=== PATIENT | female | born 1950 ===

== ENCOUNTER → 2022-12-04 09:59 | Outpatient (BNVA) | payer MEDICARE, MEDICAID, SELFPAY | PROVIDERS: PCP Podiatrist Foot & Ankle Surgery; Visit Provider Nurse Practitioner Family | DX: E11.40 Type 2 diabetes mellitus with diabetic neuropathy, unspecified (principal); M25.50 Pain in unspecified joint; M47.812 Spondylosis without myelopathy or radiculopathy, cervical region; M47.816 Spondylosis without myelopathy or radiculopathy, lumbar region; M16.9 Osteoarthritis of hip, unspecified | CPT/HCPCS: 99202 ==

== ENCOUNTER 2024-02-27 09:36 | Outpatient (AMB) | payer OTHER, SELFPAY ==
--- NOTE | 2024-02-27 09:44 | HO.NEPHOV ---
HPI HPI Comments History of Present Illness Details 73-year-old woman with a history of diabetes mellitus for more than 35 years who was at chronic kidney disease. She was previously seen by a different poison information specialist and was not happy with the care and therefore his desire to switch. She is history of congestive heart failure and currently on Entresto Lasix and furosemide. Back in November of 2023 creatinine was 2.6 with EGFR of 19 mL/minute. In February EGFR remains unchanged. She is here for further evaluation. She continues to have back pain. She has no shortness of breath. No nausea vomiting. She has leg edema. No weight loss. All other systems were reviewed [facility] Medical History (Updated 02/27/24 @ 10:16 by Martín De Luna MD) Chronic kidney disease Degenerative joint disease (DJD) of hip Cataract Bunion Fatty liver DJD (degenerative joint disease), lumbar DJD (degenerative joint disease), cervical Diabetes mellitus type 2 with neurological manifestations Vitamin D deficiency Urinary incontinence Allergic rhinitis GERD (gastroesophageal reflux disease) Depression Diabetic retinopathy Hypertension Hyperlipidemia Diabetic nephropathy Surgical History (Updated 02/27/24 @ 09:48 by Rosie Vasquez) History of open heart surgery (~02/2023) History of adjustable gastric banding Social History Patient Tobacco Use Status: Never used Tobacco Vital Signs 02/27/24 09:45 Height 5 ft 6 in Weight 221 lb BMI 35.7 BP 144/66 H Blood Pressure Location Lt brachial Position Sitting Pulse 72 Pulse Source Pulse Oximeter Pulse Oximetry (%) 99 Oxygen Delivery Method Room Air Physical Exam Vital Signs: Last Vital Signs Pulse 72 02/27/24 09:45 BP 144/66 H 02/27/24 09:45 Pulse Ox 99 02/27/24 09:45 Oxygen Delivery Method Room Air 02/27/24 09:45 BMI result Body Mass Index 35.7 Const General: comfortable Nutritional Appearance: well nourished Orientation/consciousness: patient oriented x3 HEENT Head: No normal to inspection Mouth: moist mucous membranes Neck Neck: Yes supple and Yes no JVD Resp Auscultation: clear to auscultation bilaterally, no rales and rub present Cardio Jugular venous distension: no JVD Palpation: no palpable S3 and no palpable S4 Heart sounds: no rubs GI Palpation (GI): Soft to palpation and nontender Percussion: No Fluid wave present General: Yes no CVA tenderness Back/Spine/Pelvis Back: no CVA tenderness Skin General skin exam: no rashes or lesions noted Neuro General: patient oriented x3 Extrem General: No clubbing and Yes edema Assessment & Plan Assessment & Plan (1) Chronic kidney disease: Code(s): N18.9 - Chronic kidney disease, unspecified (2) Diabetes mellitus with chronic kidney disease: Code(s): E11.22 - Type 2 diabetes mellitus with diabetic chronic kidney disease Plan 73-year-old woman with a history of longstanding diabetes mellitus and coronary disease with stage IV CKD. CKD is most likely due to underlying diabetic kidney disease. Nondiabetic causes him unlikely based on the clinical picture. Goal at this point is to slow the progression of renal disease. Maintain blood pressure less than 130/80 Maintain A1c less than 7%. Continue with ARB for renal protection. She is on adequate dose of diuretics at this time. She should stay on low-sodium diet which I have discussed with her. She has mild anemia this may be due to underlying erythropoietin deficiency. I will check iron stores and reassess her for possible erythropoietin replacement therapy. We will screen for secondary hyperparathyroidism prior to next visit. All questions were answered she will return to office in next few weeks I will keep you updated. Orders: Orders Basic Metabolic Panel 4 Weeks N18.9 - Chronic kidney disease, unspecified IRON PROFILE 4 Weeks N18.5 - Chronic kidney disease, stage 5, N18.9 - Chronic kidney disease, unspecified Creatinine Urine 4 Weeks N05.9 - Unspecified nephritic syndrome with unspecified morphologic changes, N18.9 - Chronic kidney disease, unspecified Parathyroid Hormone Intact 4 Weeks N18.9 - Chronic kidney disease, unspecified Phosphorus 4 Weeks N18.9 - Chronic kidney disease, unspecified Total Protein Urine Random 4 Weeks N18.9 - Chronic kidney disease, unspecified Complete Blood Count Auto Diff 4 Weeks N18.30 - Chronic kidney disease, stage 3 unspecified, N18.9 - Chronic kidney disease, unspecified Coding Level of Care Code New Pt Level 5 (02903) Diagnoses Chronic kidney disease N18.9 Diabetes mellitus with chronic kidney disease E11.22 Results Reviewed Results Reviewed: eGFR 19 ml/mt K normal Nephrology Results: No Data to Display
[2024-02-27 09:45] VITALS: BP 144/66; PULSE 72; O2SAT 99; BMI 35.7
== END 2024-02-27 10:24 | disposition home or self-care (01) ==
PROVIDERS: PCP Internal Medicine; Visit Provider Internal Medicine Hypertension Specialist
DX: E11.22 Type 2 diabetes mellitus with diabetic chronic kidney disease (principal); N18.4 Chronic kidney disease, stage 4 (severe)
CPT/HCPCS: 99204

== ENCOUNTER → 2024-02-27 09:36 | Outpatient (BNVA) | payer OTHER, SELFPAY | PROVIDERS: PCP Internal Medicine; Visit Provider Internal Medicine Hypertension Specialist | DX: E11.22 Type 2 diabetes mellitus with diabetic chronic kidney disease (principal); N18.9 Chronic kidney disease, unspecified | CPT/HCPCS: 99202 ==

== ENCOUNTER 2024-04-08 12:58 | Outpatient (REF) | payer OTHER, SELFPAY ==
[2024-04-08 18:54] LABS: MANUAL DIFF FLAG NO
[2024-04-08 19:10] LABS: Basophils Absolute Auto 0.1 X10*3/uL (0.0-0.2); Basophils Percent Auto 0.8 % (0-2); Eosinophils Absolute Auto 0.2 X10*3/uL (0.0-0.4); Eosinophils Percent Auto 2.7 % (0-4); Hemoglobin 8.8 g/dl (12.0-16.0); Imm Gran Abs Auto 0.02 X10*3/uL (0.00-0.03); Imm Gran Pct Auto 0.3 % (0.0-0.4); Lymphocytes Absolute Auto 1.9 X10*3/uL (1.2-4.9); Lymphocytes Percent Auto 28.9 % (20-40); Mean Corpuscular HGB Conc 32.6 g/dl (31.0-35.0); Mean Corpuscular Hemoglobin 28.9 pg (27.0-33.0); Mean Corpuscular Volume 88.8 fL (80.0-98.0); Mean Platelet Volume 11.5 fL (9.4-12.3); Monocytes Absolute Auto 0.5 X10*3/uL (0.1-1.2); Monocytes Percent Auto 7.2 % (2-11); Neutrophils Absolute Auto 3.9 x10*3/uL (2.0-8.3); Neutrophils Percent Auto 60.1 % (45-73); Platelet Count 301 X10*3/uL (160-400); Red Blood Count 3.04 X10*6/uL (4.20-5.50); Red Cell Distribution Width 16.5 % (11.0-16.0); White Blood Count 6.6 X10*3/uL (4.8-10.8)
[2024-04-08 19:29] LABS: Anion Gap 16 (12-20); Blood Urea Nitrogen 35 mg/dL (9-16); Calcium 9.6 mg/dL (8.4-10.2); Carbon Dioxide 25 mmol/L (22-29); Chloride 105 mmol/L (96-108); Estimated Glomerular Filt Rate 23; Glucose Random 157 mg/dL (60-115); Iron 56 mcg/dL (30-160); Percent Iron Saturation 20 % (15-50); Phosphorus 3.5 mg/dL (2.7-4.5); Potassium 3.8 mmol/L (3.3-5.1); Sodium 142 mmol/L (135-145); Total Iron Binding Capacity 275 mcg/dL (228-428); Unsaturated Iron Binding 219 ug/dL
[2024-04-08 19:53] LABS: Creatinine Urine 58.91 mg/dL; Total Protein Urine Random 166 mg/dL (<12)
[2024-04-09 07:26] LABS: Parathyroid Hormone Intact 155.1 pg/mL (8.7-77.1)
== END 2024-04-08 12:59 | disposition home or self-care (01) ==
LOC: HO.HKASLDS 12:58
PROVIDERS: Visit Provider Internal Medicine Hypertension Specialist
DX: N18.5 Chronic kidney disease, stage 5 (principal); N05.9 Unspecified nephritic syndrome with unspecified morphologic changes
CPT/HCPCS: 36415; 80048; 82570; 83540; 83970; 84100; 84156; 85025

== ENCOUNTER 2024-04-23 08:41 | Outpatient (AMB) | payer OTHER, SELFPAY ==
--- NOTE | 2024-04-23 08:50 | HO.NEPHOV ---
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 Electric Service Required: No Accompanied by: Spouse Allergies No Known Allergies Allergy (Verified 04/23/24 08:54) Medication List - Last Reconciled 04/23/24 by Martín De Luna MD albuterol sulfate 90 mcg/actuation (ProAir HFA) 2 puffs inhalation Q6H PRN albuterol sulfate 90 mcg/actuation (ProAir RespiClick) 1 inh inhalation Q4-6H PRN aspirin 81 mg PO DAILY atorvastatin 80 mg PO DAILY carvedilol 12.5 mg PO BID cholecalciferol (vitamin D3) 50 mcg PO DAILY ferrous sulfate (FeroSul) 325 mg PO DAILY furosemide 40 mg PO BID hydralazine 75 mg (1.5 x 50 mg) PO TID insulin glargine (Lantus Solostar U-100 Insulin) 62 units subcut DAILY insulin lispro (Humalog KwikPen (U-100) Insulin) subcut metolazone 2.5 mg PO DAILY PRN nifedipine ER 60 mg PO DAILY pantoprazole 40 mg PO DAILY potassium chloride ER 10 mEq PO DAILY HPI Comments Details: . 73-year-old pleasant woman with a history of diabetes mellitus for more than 35 years who was at chronic kidney disease. She was previously seen by a different supervisory examiner and was not happy with the care and therefore his desire to switch. She is history of congestive heart failure and was on Entresto Lasix and furosemide. Back in November of 2023 creatinine was 2.6 with EGFR of 19 mL/minute. During recent hospitalization medications were changed. Amlodipine and losartan discontinued. She is currently in nifedipine and hydralazine and carvedilol She continues to have back pain. She has no shortness of breath. No nausea vomiting. She has leg edema. No weight loss. All other systems were reviewed History of congestive heart failure with preserved ejection fraction. [facility] Medical History (Updated 02/27/24 @ 10:16 by Martín De Luna MD) Chronic kidney disease Degenerative joint disease (DJD) of hip Cataract Bunion Fatty liver DJD (degenerative joint disease), lumbar DJD (degenerative joint disease), cervical Diabetes mellitus type 2 with neurological manifestations Vitamin D deficiency Urinary incontinence Allergic rhinitis GERD (gastroesophageal reflux disease) Depression Diabetic retinopathy Hypertension Hyperlipidemia Diabetic nephropathy Surgical History History of open heart surgery (~02/2023) History of adjustable gastric banding Social History Patient Tobacco Use Status: Never used Tobacco Physical Exam Vital Signs: Last Vital Signs Pulse 70 04/23/24 08:51 BP 144/62 H 04/23/24 08:51 Pulse Ox 98 04/23/24 08:51 Oxygen Delivery Method Room Air 04/23/24 08:51 BMI result Body Mass Index 34.7 Const General: comfortable Nutritional Appearance: well nourished Orientation/consciousness: patient oriented x3 HEENT Head: No normal to inspection Mouth: moist mucous membranes Neck Neck: Yes supple and Yes no JVD Resp Auscultation: clear to auscultation bilaterally, no rales and rub present Cardio Jugular venous distension: no JVD Palpation: no palpable S3 and no palpable S4 Heart sounds: no rubs GI Palpation (GI): Soft to palpation and nontender Percussion: No Fluid wave present General: Yes no CVA tenderness Back/Spine/Pelvis Back: no CVA tenderness Skin General skin exam: no rashes or lesions noted Neuro General: patient oriented x3 Extrem General: No clubbing and Yes edema Results Reviewed Nephrology Results: Hgb 8.8 g/dl (12.0-16.0) L 04/08/24 WBC 6.6 X10*3/uL (4.8-10.8) 04/08/24 Plt Count 301 X10*3/uL (160-400) 04/08/24 Sodium 142 mmol/L (135-145) 04/08/24 Potassium 3.8 mmol/L (3.3-5.1) 04/08/24 Chloride 105 mmol/L (96-108) 04/08/24 Carbon Dioxide 25 mmol/L (22-29) 04/08/24 BUN 35 mg/dL (9-16) H 04/08/24 Creatinine 2.13 mg/dL (0.5-1.4) H 04/08/24 Calcium 9.6 mg/dL (8.4-10.2) 04/08/24 Phosphorus 3.5 mg/dL (2.7-4.5) 04/08/24 PTH Intact 155.1 pg/mL (8.7-77.1) H 04/08/24 Urine Creatinine 58.91 mg/dL 04/08/24 Assessment & Plan Assessment & Plan (1) Chronic kidney disease: Code(s): N18.9 - Chronic kidney disease, unspecified Category: Medical (2) Diabetes mellitus with chronic kidney disease: Code(s): E11.22 - Type 2 diabetes mellitus with diabetic chronic kidney disease Category: Medical Plan . 73-year-old woman with a history of longstanding diabetes mellitus and coronary disease with stage IV CKD. CKD is most likely due to underlying diabetic kidney disease. Nondiabetic causes him unlikely based on the clinical picture. Creatinine is marginally better at 2.11. Goal at this point is to slow the progression of renal disease. Maintain blood pressure less than 130/80 Maintain A1c less than 7%. Continue with ARB for renal protection. She is on adequate dose of diuretics at this time. She should stay on low-sodium diet which I have discussed with her. She will benefit from SGLT2 inhibitors. Hypertension. Blood pressure is suboptimal. I have increased hydralazine up to 75 mg 3 times a day. 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 Iron stores are adequate. I will arrange for erythropoietin replacement therapy. secondary hyperparathyroidism Mild elevation PTH. She will follow this and start her on vitamin D3 analog as needed. All questions were answered she will return to office in next 3-4 weeks Orders: Orders Complete Blood Count Auto Diff 3 Weeks N18.30 - Chronic kidney disease, stage 3 unspecified, N18.9 - Chronic kidney disease, unspecified Basic Metabolic Panel 3 Weeks N18.9 - Chronic kidney disease, unspecified Medications: New hydralazine 75 mg (1.5 x 50 mg) PO TID 140 tabs 2RF Coding Level of Care Code Est Pt Level 4 (60343) Diagnoses Chronic kidney disease N18.9 Diabetes mellitus with chronic kidney disease E11.22
[2024-04-23 08:51] VITALS: BP 144/62; PULSE 70; O2SAT 98; BMI 34.7
--- OUTSIDE RECORDS SUMMARY | 2024-04-25 10:15 | XMS_ITS | Continuity of Care Document ---
Author Organization [facility] ter Address [address] [place] [id number]- Care Team Providers Care Hand Riveter Name Role Phone Rosalina AVILES, Diana Brunilda Primary Care Physician Encounter [facility] Date(s): 04/12/23 - 07/27/[address] [address]- Encounter Diagnosis Atherosclerotic heart disease of tangirnaq coronary artery without angina pectoris (Final) - Discharge Disposition: A-D/C Home Attending Physician: Lm Ayon MD Admitting Physician: Lm Ayon MD Referring Physician: Lm Ayon MD Allergies, Adverse Reactions, Alerts No Known Allergies Immunizations Given and Recorded Vaccine Date Status Refusal Reason influenza virus vaccine, inactivated 06/23/22 Anthony rded influenza virus vaccine, inactivated 07/15/21 Anthony rded influenza virus vaccine, inactivated 08/18/20 Anthony rded influenza virus vaccine, inactivated 08/05/20 Anthony rded influenza virus vaccine, inactivated 09/28/18 Give n influenza virus vaccine, inactivated 09/24/15 Anthony rded SARS-CoV-2 mRNA ([id number]) vax 06/23/22 Recorded SARS-CoV-2 (COVID-19) mRNA BNT-162b2 vac 09/06/21 Recorded SARS-CoV-2 (COVID-19) mRNA BNT-162b2 vac 02/18/21 Recorded SARS-CoV-2 (COVID-19) mRNA BNT-162b2 vac 01/28/21 Recorded zoster vaccine, inactivated 11/28/19 Recorded Zoster Vaccine Live 11/05/12 Recorded Medications acetaminophen 325 mg oral tablet 975 mg, By Mouth, Every 6 hours, Refills 0, Maintenance, 03/08/23 15:15:00 EDT, Partial fill upon patient request if the prescription is for a schedule II opioid drug. Start Date: 03/08/23 Status: Ordered Albuterol (Eqv-ProAir HFA) 90 mcg/inh inhalation aerosol INHALE 2 PUFFS INTO THE LUNGS EVERY 6 HOURS NEEDED FOR COUGH OR WHEEZING OR SHORTNESS OF BREATH Start Date: 12/20/22 Status: Ordered amiodarone 200 mg oral tablet 200 mg, By Mouth, 2 times a day, Refills 0, Maintenance, 03/08/23 15:15:00 EDT, Partial fill upon patient request if the prescription is for a schedule II opioid drug. Start Date: 03/08/23 Status: Ordered aspirin 81 mg oral tablet 1 tablet = 81 mg, By Mouth, Daily, 0 Refills, Maintenance, 06/17/10 14:05:19 Start Date: 06/17/10 Status: Ordered atorvastatin 80 mg oral tablet 1 tablet = 80 mg, By Mouth, Daily at bedtime, 0 Refills, Maintenance, 03/08/23 15:15:00 EDT, Tablet, Partial fill upon patient request if the prescription is for a schedule II opioid drug. Start Date: 03/08/23 Status: Ordered bisacodyl 10 mg rectal suppository 1 supp = 10 mg, Rectally, Daily, PRN Constipation, 0 Refills, Maintenance, 03/08/23 15:15:00 EDT, Suppository, Partial fill upon patient request if the prescription is for a schedule II opioid drug. Start Date: 03/08/23 Status: Ordered bisacodyl 5 mg oral delayed release tablet = 10 mg, By Mouth, Daily, PRN Constipation, 0 Refills, Maintenance, 03/08/23 15:15:00 EDT, EC Tablet, Partial fill upon patient request if the prescription is for a schedule II opioid drug. Start Date: 03/08/23 Status: Ordered clopidogrel 75 mg oral tablet 75 mg, 1, tablet, By Mouth, Daily, Refills 0, Maintenance, 03/08/23 15:15:00 EDT, Partial fill uponpatient request if the prescription is for a schedule II opioid drug. Start Date: 03/08/23 Status: Ordered Coreg 3.125 mg oral tablet 3.125 mg, 1, tablet, By Mouth, 2 times a day, Refills 0, Maintenance, 03/08/23 15:14:00 EDT, Partial fill upon patient request if the prescription is for a schedule II opioid drug. Start Date: 03/08/23 Status: Ordered Docusate/Senna Tablet 2 tablet, By Mouth, Daily, 0 Refills, Maintenance, 03/08/23 15:15:00 EDT, Tablet, Partial fill uponpatient request if the prescription is for a schedule II opioid drug. Start Date: 03/08/23 Status: Ordered Heparin Inj 1 mL = 5,000 units, Subcutaneous Injection, 3 times a day, 0 Refills, Maintenance, 03/08/23 15:15:00 EDT, Injection, Partial fill upon patient request if the prescription is for a schedule II opioid drug. Start Date: 03/08/23 Status: Ordered insulin lispro 100 u/ml subcutaneous injection 2-10 units, Subcutaneous Injection, 3 times a day before meals, << Sliding Scale Comments >> 120 - 169 2 units Call if less than 100 170 - 219 4 units 220 - 269 6 units 270 - 319 8 units 320 - 369 10 units Call if greater than 400 <... Start Date: 03/08/23 Status: Ordered Insulin LISPRO Inj 0.06 mL = 6 units, Subcutaneous Injection, 3 times a day before meals, 0 Refills, Maintenance, 03/08/23 15:14:00 EDT, Injection, Partial fill upon patient request if the prescription is for a schedule II opioid drug. Start Date: 03/08/23 Status: Ordered lactulose 10 gm/15 ml oral syrup 30 mL = 20 Gm, By Mouth, Daily, 0 Refills, Maintenance, 03/08/23 15:16:00 EDT, Syrup, Partial fill upon patient request if the prescription is for a schedule II opioid drug. Start Date: 03/08/23 Status: Ordered Lantus Inj 0.4 mL = 40 units, Subcutaneous Injection, Every 24 hours, 0 Refills, Maintenance, 03/08/23 15:14:00 EDT, Injection, Partial fill upon patient request if the prescription is for a schedule II opioid drug. Start Date: 03/08/23 Status: Ordered lidocaine 5% topical film Topically, Daily, 0 Refills, Maintenance, 03/08/23 15:16:00 EDT, Patch, Partial fill upon patient request if the prescription is for a schedule II opioid drug. Start Date: 03/08/23 Status: Ordered methenamine hippurate 1 gm oral tablet 1 tablet = 1 Gm, By Mouth, 2 times a day, 0 Refills, Maintenance, 01/12/16 13:14:06 Start Date: 01/12/16 Status: Ordered MiraLax Powder 1 pack/packet = 17 Gm, By Mouth, Daily, 0 Refills, Maintenance, 03/08/23 15:16:00 EDT, Powder, Partial fill upon patient request if the prescription is for a schedule II opioid drug. Start Date: 03/08/23 Status: Ordered Multivitamin By Mouth, 2 times a day, 0 Refills, Maintenance, 09/15/15 9:44:56 Start Date: 09/15/15 Status: Ordered oxyCODONE 5 mg oral tablet 2.5 mg, 0.5, tablet, By Mouth, Every 4 hours, PRN, Refills 0, Tot. Refills 0, Maintenance, Pain , Moderate, 03/08/23 15:17:00 EDT, Partial fill upon patient request if the prescription is for a schedule II opioid drug. Start Date: 03/08/23 Stop Date: 03/13/23 Status: Ordered pantoprazole 40 mg oral delayed release tablet 1 tablet = 40 mg, By Mouth, Daily, # 30 tablet, 0 Refills, Maintenance, 12/20/22 2:40:00 EST, EC Tablet Start Date: 12/20/22 Status: Ordered Remove Patch Start Date: 03/08/23 Status: Ordered Vashe Topical Solution 475 mL, Topically, Every 12 hours, 0 Refills, Maintenance, Solution Start Date: 03/08/23 Status: Ordered Victoza 18 mg/3 mL subcutaneous solution = 1.8 mg, Subcutaneous Injection, Daily, # 9 mL, 0 Refills, Maintenance, 12/20/22 2:44:00 EST, Solution, Partial fill upon patient request if the prescription is for a schedule II opioid drug. Start Date: 12/20/22 Status: Ordered Vitamin D3 1000 intl units oral capsule 1 capsule = 1,000 International_Units, By Mouth, Daily, 0 Refills, Maintenance, 09/15/15 9:42:37 EDT Start Date: 09/15/15 Status: Ordered Problem List Condition Confirmation Course Effective Dates Status Health St atus Informant Atypical chest pain Confirmed Active Neuropathy Confirmed Active Retinopathy Confirmed Active Severe obesity Confirmed Active Social History Social History Type Response Smoking Status Never smoker entered on: 09/14/15 Sex Note * Event Display: Cardiac Rehab Telemetry Report Authored Date: * Event Display: Cardiac Rehab Telemetry Report Authored Date: * Event Display: Cardiac Rehab Telemetry Report Authored Date: Patient Care team information Care Team Personnel Name: Anuradha Flores RN Position: S RN Member Role: Primary Care Nurse Name: Diana Romano MD Position: [facility] Physician - Primary Care Member Role: PCP Address: Address: [address] [place] [id number]- Name: Ruben Jensen RN Position: [facility] RN Member Role: Primary Care Nurse Name: Katty Garcia RN Position: S RN Member Role: Primary Care Nurse Name: Slick Martino RN Position: [facility] ED RN W/OE and Tasks Member Role: Primary Care Nurse Name: Sudha Kee RN Position: [facility] RN Member Role: Primary Care Nurse Name: Tita Sims RN Position: [facility] RN Member Role: Primary Care Nurse Care Team Related Persons Name: NBA COCHRANJOVANJULIA Address: [place] [address] Name: AMILCAR JOHNSON Address: home [address] [address]
--- OUTSIDE RECORDS SUMMARY | 2024-04-25 10:15 | XMS_ITS | Continuity of Care Document ---
Author Organization [facility] ter Address [address] [place] [id number]- Care Team Providers Care Manager Food Name Role Phone Rosalina AVILES, Diana D Primary Care Physician Encounter [facility] Date(s): 03/02/23 - 03/08/[address] [address] Discharge Disposition: A-Transfer SNF Attending Physician: Lm Ayon MD Admitting Physician: Michael Torrez MD Referring Physician: Pancho Noland Allergies, Adverse Reactions, Alerts No Known Allergies Immunizations Given and Recorded Vaccine Date Status Refusal Reason influenza virus vaccine, inactivated 06/23/22 Anthony rded influenza virus vaccine, inactivated 07/15/21 Anthony rded influenza virus vaccine, inactivated 08/18/20 Anthony rded influenza virus vaccine, inactivated 08/05/20 Anthony rded influenza virus vaccine, inactivated 09/28/18 Give n influenza virus vaccine, inactivated 09/24/15 Anthony rded SARS-CoV-2 mRNA ([id number]) vax 06/23/22 Recorded SARS-CoV-2 (COVID-19) mRNA BNT-162b2 vac 09/06/21 Recorded SARS-CoV-2 (COVID-19) mRNA BNT-162b2 vac 02/18/21 Recorded SARS-CoV-2 (COVID-19) mRNA BNT-162b2 vac 01/28/21 Recorded zoster vaccine, inactivated 11/28/19 Recorded Zoster Vaccine Live 11/05/12 Recorded Not Given Vaccine Date Status Refusal Reason pneumococcal 13-valent vaccine 09/28/18 Not Given Patient Refuses Medications acetaminophen 325 mg oral tablet 975 [...] Coreg 3.125 mg oral tablet 3.125 mg, Tablet, By Mouth, Hold for: HR less than 60 or sbp less than 110, 03/08/23 9:00:00 EDT Start Date: 03/08/23 Stop Date: 03/08/23 Status: Completed Docusate/Senna Tablet 2 tablet, By Mouth, Daily, [...] Retinopathy Confirmed Active Severe obesity Confirmed Active Results Radiology Reports * Exam Date Time Procedure Performing Provider Status 03/04/23 7:18 AM Chest Portable Leta Ruvalcaba Keyla; Auth (Verified) Notes: (Chest Portable) Reason For Exam: S/P Cardiac Surgery RESULT: Chest Portable Chest Portable Reason: S P Cardiac Surgery; Clinical Question(s): Pleural Effusion COMPARISON: 03/03/2023 FINDINGS: LINES AND TUBES: Vascular sheath in expected position. Left base catheter not well seen. Right- sided chest tube appears similar in position. LUNGS AND PLEURA: Clear lungs. Normal pulmonary vascularity. No pleural effusion. No pneumothorax. HEART, MEDIASTINUM AND LARISSA: Heart is normal in size. Normal mediastinal and hilar contour. BONES AND SOFT TISSUES: Sternotomy sutures noted. IMPRESSION: Limited exam. No significant interval change. WSN: [id number] Ordering Physician: Dona Amor Dictated By: Richard Green MD Dictated Date/Time: 03/04/23 9:34 am Reviewed By: Richard Green MD Signed By: Richard Green MD Signed Date/Time: 03/04/23 9:34 am Transcribed By: SADIQ Transcribed Date/Time: 03/04/23 9:33 am * Exam Date Time Procedure Performing Provider Status 03/03/23 6:34 AM Chest Portable Con Patel; Auth (Verified) Notes: (Chest Portable) Reason For Exam: S/P Cardiac Surgery RESULT: Chest Portable Chest Portable Reason: S P Cardiac Surgery; Clinical Question(s): Other:; Cardiac Tamponade; Special Instructions:Post Op Day 1 COMPARISON: 03/02/2023 FINDINGS: LINES AND TUBES: The patient has been extubated. Enteric tube has been removed. Stable positioning of right internaljugular Baltimore-Jimi catheter. Bibasilar chest tubes unchanged . External lead wires overlie the chest. LUNGS AND PLEURA: Low lung volumes with mild basilar atelectasis. Lungs are otherwise clear with no consolidation. No definite pleural effsion. Small effusion may not be apparent on semiupright exam. No pneumothorax. HEART, MEDIASTINUM AND LARISSA: Status post median sternotomy and cardiac surgery. Moderate prominence of the cardiac silhouette, unchanged. Normal mediastinal and hilar contour. BONES AND SOFT TISSUES: No acute abnormality. IMPRESSION: Status post median sternotomy and cardiac surgery. Lines and tubes are adequately placed. Low lung volumes and bibasilar atelectasis. Semiupright positioning limiting evaluation for effusion. No definite effusion identified. WSN: [id number] Ordering Physician: Richard Deleon Dictated By: Micheal Santiago MD Dictated Date/Time: 03/03/23 4:34 pm Reviewed By: Micheal Santiago MD Signed By: Micheal Santiago MD Signed Date/Time: 03/03/23 4:34 pm Transcribed By: SADIQ Transcribed Date/Time: 03/03/23 4:32 pm * Exam Date Time Procedure Performing Provider Status 03/02/23 1:59 PM Chest Portable Anuradha Saxena; Auth (V erified) Notes: (Chest Portable) Reason For Exam: S/P Cardiac Surgery RESULT: Chest Portable Chest Portable Reason: S P CAGB 03/02; Clinical Question(s): Cardiac Tamponade COMPARISON: Multiple priors, most recent chest x-ray 02/28/2023, CT chest 12/21/2022 FINDINGS: LINES AND TUBES: Endotracheal tube terminates approximately 2.3 cm above the radha. Baltimore-Jimi catheter terminates in the region of the right ventricular outflow tract. Left basilar chest tube and mediastinal drain. Enteric tube courses along the esophagus with side hole terminating in the region of the gastric pouch. LUNGS AND PLEURA: Low lung volumes with mild basilar atelectasis. Lungs are otherwise clear with no consolidation. Mild blunting of the bilateral costophrenic angles, which could represent trace bilateral pleural effusions. No pneumothorax. HEART, MEDIASTINUM AND LARISSA: Heart is normal in size. Normal mediastinal and hilar contour. BONES AND SOFT TISSUES: No acute abnormality. Status post CABG. Poorly visualized gastric band. IMPRESSION: Low lung volumes. Possible trace bilateral pleural effusions. Otherwise no acute abnormality status post CABG. Lines and tubes as above. I have personally reviewed the images and I agree with this report. WSN: [id number] Ordering Physician: Richard Deleon Dictated By: Shauna Mcghee MD Dictated Date/Time: 03/02/23 2:50 pm Reviewed By: Miguel Quan MD, V Signed By: Miguel Quan MD, V Signed Date/Time: 03/02/23 2:55 pm Transcribed By: SADIQ Transcribed Date/Time: 03/02/23 2:30 pm * Exam Date Time Procedure Performing Provider Status 02/28/23 7:42 PM Chest 2 Views Frontal and Lat Charla Duron; Auth (Verified) Notes: (Chest 2 Views Frontal and Lat) Reason For Exam: Cough RESULT: Chest 2 Views Frontal and Lat Chest 2 Views Frontal and Lat Reason: Cough; Clinical Question(s): Pneumonia; Order Comment: @1435, per RN patient unavailable tocome down due to getting scans in room, then going to M6. Floor will call when patient is transferred. MM COMPARISON: 12/19/2022. FINDINGS: LINES AND TUBES: None. LUNGS AND PLEURA: Central vascularity is mildly prominent and indistinct. Trace effusions are noted. Lungs are slightly hyperinflated. No pneumothorax. HEART, MEDIASTINUM AND LARISSA: Moderate prominence of the cardiac silhouette. Normal mediastinal and hilar contour. BONES AND SOFT TISSUES: No acute abnormality. IMPRESSION: Cardiac enlargement with pulmonary edema and trace effusions consistent with CHF. Mild COPD. No pneumonia. WSN: [id number] Ordering Physician: Jae Agustin Dictated By: Micheal Santiago MD Dictated Date/Time: 02/28/23 8:46 pm Reviewed By: Micheal Santiago MD Signed By: Micheal Santiago MD Signed Date/Time: 02/28/23 8:46 pm Transcribed By: SADIQ Transcribed Date/Time: 02/28/23 8:45 pm Vital Signs Most recent to oldest [Reference Range]: 1 2 3 Height 168 cm (03/08/23 11:54 AM) 168 cm (03/08/23 7:58 AM) 168 cm (03/08/23 5:08 AM) Weight 117.2 kg (03/08/23 5:08 AM) 117.2 kg (03/08/23 5:07 AM) 117.2 kg (03/08/23 4:56 AM) Oxygen Saturation [94-100 %] 96 % (03/08/23 11:54 AM) 96 % (03/08/23 7:58 AM) 96 % (03/08/23 4:56 AM) Pulse Rate [55-90 bpm] 67 bpm (03/08/23 11:54 AM) 59 bpm (03/08/23 8:23 AM) 58 bpm (03/08/23 7:58 AM) Body Mass Index [18.5-24.99 kg/m2] 41.52 kg/m2 *>HHI* (03/08/23 4:56 AM) 42.62 kg/m2 *>HHI* (03/07/23 3:40 AM) 38.87 kg/m2 *>HHI* (03/02/23 7:21 AM) Blood Pressure [90-138/55-84 mm Hg] 146/47mm Hg *H* (03/08/23 11:54 AM) 136/47mm Hg (03/08/23 7:58 AM) 112/40mm Hg (03/08/23 4:56 AM) Respiratory Rate [16-30 br/min] 18 br/min (03/08/23 11:54 AM) 18 br/min (03/08/23 7:58 AM) 18 br/min (03/08/23 4:56 AM) Temperature [96.8-100.4 DegF] 98.4 DegF (03/08/23 11:54 AM) 98.3 DegF (03/08/23 7:58 AM) 98.2 DegF (03/08/23 4:56 AM) Liters per Minute 3 L/min (03/07/23 7:27 AM) 3 L/min (03/07/23 3:40 AM) 3 L/min (03/06/23 11:14 PM) Mode of Delivery (Oxygen) Room air (03/08/23 11:54 AM) Room air (03/08/23 7:58 AM) Room air (03/08/23 4:56 AM) Blood pressure sites Arm, left (03/08/23 11:54 AM) Arm, left (03/08/23 7:58 AM) Arm, left (03/08/23 4:56 AM) Temperature Route Oral (03/08/23 11:54 AM) Oral (03/08/23 7:58 AM) Oral (03/08/23 4:56 AM) Dry Weight 114.2 kg (02/28/23 4:23 PM) 114.2 kg (02/28/23 7:45 AM) Weight Obtained Via Bed scale (03/08/23 5:08 AM) Bed scale (03/08/23 5:07 AM) Bed scale (03/08/23 4:56 AM) Dry Weight Obtained Via Standing scale (02/28/23 7:45 AM) Social History Social History Type Response Smoking Status Never smoker entered on: 09/14/15 Sex Note * Rimma Murray RN: PERFORM Event Display: Discharge/Transfer Note Hospital Authored Date: [id number] Nursing Discharge Note Entered On: 03/08/2023 18:42 EDT Performed On: 03/08/2023 18:41 EDT by Rimma Murray RN Nursing Discharge Note 2 Discharge Time : 03/08/2023 16:30 EDT Discharge Level of Care at Discharge : [facility] facility Discharge Nursing Homes/Rehab Facilities : [facility] Patient Left Unit Via : Ambulance Patient Accompanied Off Unit with : Ambulance/Chair Van Personnel Handover Given to Transport Personnel : Yes DC Instructions Provided & Signed by Pt : Yes Patient Understands D/C Instructions : Yes Patient Instructions Discharge Signed : Yes Did Pt have Specialty Bed or Wound Vac : No Rimma Murray RN - 03/08/2023 18:41 EDT * Lm Ayon MD: SIGN Lm Ayon MD: SIGN, SIGN, VERIFY Event Display: Discharge/Transfer Note Hospital Authored Date: [id number] Patient: ALEXY WATTS Age: 72 years Sex: Female : 1950 Associated Diagnoses: None Author: Mehrdad Ivy Discharge Information Chief Complaint/Reason for Admission Angina, shortness of breath Principal Discharge Diagnosis CAD (coronary artery disease): Present on admission - yes. Secondary Discharge Diagnoses Diabetes: Present on admission - yes. Patient is aware of diagnosis Procedures 1. CABG x2, GRIMM to LAD, saphenous vein graft to RPLA. 2. Endoscopic saphenous vein harvesting. 3. Epiaortic ultrasound of ascending aorta and aortic arch.. Discharge condition: good Compared to admission: improved Functional Status: ambulatory with assistance Discharge Disposition Home: self care, family. Home care with: VNA. Discharge Summary distribution: Route to attending, referring, and primary care provider. Route to: Rosalina AVILES, Diana Cordero Discharge Date 03/08/2023 Admission Date 03/02/2023 Code Status Full Resuscitation. Draft of Summary Completed by: Tawny WESTFALL, Mehrdad Lua. Case Management Discharge Plan : Case Management Discharge Plan Data 03/08/2023 14:55 EDT Discharge Level of Care at Discharge [facility] facility Discharge Nursing Homes/Rehab Facilities [facility] Discharge Transportation Arranged [facility] [address] [facility] [id number] Discharge Arranged Transport Date/Time 03/08/2023 17:00 Mode of Transportation Arranged Chair [employer] Fourth Hand #1 intake/allscripts Service Categories #1 Occupational Therapy, Physical Therapy, [facility]ci Service Comments #1 You are being discharged to [facility] for continued skilled care and skilled rehab as discussed. Name of Person Notified of Transfer patient Hospital Course Typed narrative PMHx: This is a 72 year old female w/ a hx of HTN, cholecystitis (treated conservatively with abx),CKD, DM-retinopathy, GERD, venous insufficiency s/p RLE vein stripping, HLD, DJD, depression, Bunions s/p bunion surgery, and cataracts s/p surgery who presented originally with unstable angina and SOB. Eventually, an elective cardiac catheterization was obtained which revealed severe distal stenosis at the left main and RCA bifurcation as well as FAMILY DEVELOPMENT SPECIALIST mid-circumflex. Dr Ayon performed a CABGx2 on 03/02/23. Surgeon: Dr. Ayon Cardiolgost: Dr. Torrez POD 6 CABG x 2 (GRIMM-LAD, SVG-PVA) EF 55-65% Plan by systems: Neuro Post-operative Pain Cataracts DM-retinopathy Depression scheduled Tylenol pt is VERY sensitive to opioids PT evaluated patient, recommended rehab Cardiovascular s/p CABG x 2 (GRIMM-LAD, SVG-PVA) Hypotension secondary to vasoplegia RESOLVED HX of HTN and HLD Amlodipine 5 mg qd- stopped due to hypotension Carvedilol 12.5 mg BID- decreased to 3.125 mg po bid due to hypotension Asa 81 mg qd Plavix 75 mg qd x 12 months Echo 03/05 with poor views, LV function grossly preserved Pulmonary Acute respiratory insufficiency, postoperative OOB to chair Aggressive pulm toileting 2LNC Keep spo2 > 92% GI Cholecystitis (resolved) Diet: Cardiac ppi resumed home dose Renal CKD Hyponatremia Hyperkalemia Baseline Creatinine: 1.5-1.7 Creatinine peak at 2, downtrended to baseline range Lasix increased to 60mg PO BID, discontinue on discharge, nearing euvolemia Strict i&o Replete lytes per protocol Home HCTZ and Spironolactone held Hyponatremia and hyperkalemia likely secondary to hypervolemia, monitor Heme Acute Blood loss anemia Watch for bleeding No blood products required intraoperatively ID keanu-operative antibiotics completed trend wbc, fever curve Endo stress induced hyperglycemia DMII A1C 7.5 Post op Cardiac Surgery Protocol BIDS recommended discharge on final inpatient dosing of insulin Dispo:??Discharge to fdc facility for continued rehab and strengthening Patient seen with and plan reviewed with Dr Faria. Exam Neurological: alert, nonfocal. Pulmonary/Lungs: clear, decreased, bases both. Cardiovascular: S1, S2, NSR, no M/R/G. Gastrointestinal: Abdomen (soft, non-tender, non-distended, bowel sounds present), Diet by mouth. Extremities: Pulses palpable, Edema (both, 1 +, non-pitting). Surgical Wounds: Chest (dry and intact, Prevena), Extremities (dry and intact, no signs of infection). Significant Results Results: Vital signs : VITAL SIGNS SECTION 03/08/2023 11:54 EDT Temperature 98.4 DegF Temperature Route Oral Pulse Rate 67 bpm Respiratory Rate 18 br/min Systolic Blood Pressure 146 mm Hg H Diastolic Blood Pressure 47 mm Hg L Blood pressure sites Arm, left Mean Arterial Pressure 80 mm Hg Pulse Pressure 99 mm Hg Oxygen Saturation 96 % Mode of Delivery (Oxygen) Room air , Laboratory 03/08/2023 12:36 EDT COVID-19 by RT-PCR NEGATIVE 03/08/2023 5:50 EDT WBC 9.8 k/mm3 RBC 2.80 m/mm3 L Hgb 8.0 Gm/dL L Hct 25.6 % L MCV 91.4 femtoliters MCH 28.6 pg MCHC 31.3 g/dL L Platelet Count 282 k/mm3 RDW-SD 49.7 femtoliters H MPV 11.9 femtoliters Nucleated RBC (Automated) 0.3 #/100 WBC'S Abs. NRBC 0.0 k/mm3 Sodium 138 mmol/L Potassium 4.7 mmol/L Chloride 101 mmol/L Bicarbonate Level 25 mmol/L Anion Gap 12 BUN 53 mg/dL H Creatinine-Blood 1.6 mg/dL H Estimated GFR Creatinine 33 ML/MIN/1.73 M2 Magnesium 2.4 mg/dL H . 40 minutes spent on discharge Discharge Plan Diet/Activity/Patient Education/Follow Up Follow Up with: Patient going to [facility], then will coeme to Cardiac Rehab end of March. If she needs to push her appoitment back to a later date please call [phone] or [phone]; [facility] Outpatient Cardiac Rehab 04/12/2023 10:30 AM [phone]; Diana Romano Within 2 to 5 weeks; [facility] Cardiac Surgery Within 1 week: call to discuss follow up visit The cardiac surgery office should reach out to you within a week, if you do not hear from this office after 1 week call the listed number.; Michael Torrez MD Within 1 week: call to discuss follow up visit; Michael Torrez Within 2 to 5 weeks; Lm Ayon Within 1 to 2 weeks. Discharge Disposition Discharge: [facility] facility. MEDICATION LIST (Selected) Documented Medications Documented Albuterol (Eqv-ProAir HFA) 90 mcg/inh inhalation aerosol: INHALE 2 PUFFS INTO THE LUNGS EVERY 6 HOURS NEEDED FOR COUGH OR WHEEZING OR SHORTNESS OF BREATH Coreg 3.125 mg oral tablet: 3.125 mg, 1, tablet, By Mouth, 2 times a day, Refills 0, Maintenance, 03/08/23 15:14:00 EDT, Partial fill upon patient request if the prescription is for a schedule II opioid drug. Docusate/Senna Tablet: 2 tablet, By Mouth, Daily, 0 Refills, Maintenance, 03/08/23 15:15:00 EDT, Tablet, Partial fill upon patient request if the prescription is for a schedule II opioid drug. Heparin Inj: 1 mL = 5,000 units, Subcutaneous Injection, 3 times a day, 0 Refills, Maintenance, 03/08/23 15:15:00 EDT, Injection, Partial fill upon patient request if the prescription is for a schedule II opioid drug. Insulin LISPRO Inj: 0.06 mL = 6 units, Subcutaneous Injection, 3 times a day before meals, 0 Refills, Maintenance, 03/08/23 15:14:00 EDT, Injection, Partial fill upon patient request if the prescription is for a schedule II opioid drug. Lantus Inj: 0.4 mL = 40 units, Subcutaneous Injection, Every 24 hours, 0 Refills, Maintenance, 03/08/23 15:14:00 EDT, Injection, Partial fill upon patient request if the prescription is for a schedule II opioid drug. MiraLax Powder: 1 pack/packet = 17 Gm, By Mouth, Daily, 0 Refills, Maintenance, 03/08/23 15:16:00 EDT, Powder, Partial fill upon patient request if the prescription is for a schedule II opioid drug. Multivitamin: By Mouth, 2 times a day, 0 Refills, Maintenance, 09/15/15 9:44:56 Remove Patch: Vashe Topical Solution: 475 mL, Topically, Every 12 hours, 0 Refills, Maintenance, Solution Victoza 18 mg/3 mL subcutaneous solution: = 1.8 mg, Subcutaneous Injection, Daily, # 9 mL, 0 Refills, Maintenance, 12/20/22 2:44:00 EST, Solution, Partial fill upon patient request if the prescription is for a schedule II opioid drug. Vitamin D3 1000 intl units oral capsule: 1 capsule = 1,000 International_Units, By Mouth, 0 Refills, Maintenance, 09/15/15 9:42:37 acetaminophen 325 mg oral tablet: 975 mg, By Mouth, Every 6 hours, Refills 0, Maintenance, 03/08/2315:15:00 EDT, Partial fill upon patient request if the prescription is for a schedule II opioid drug. amiodarone 200 mg oral tablet: 200 mg, By Mouth, 2 times a day, Refills 0, Maintenance, 03/08/23 15:15:00 EDT, Partial fill upon patient request if the prescription is for a schedule II opioid drug. aspirin 81 mg oral tablet: 1 tablet = 81 mg, By Mouth, Daily, 0 Refills, Maintenance, 06/17/10 14:05:19 atorvastatin 80 mg oral tablet: 1 tablet = 80 mg, By Mouth, Daily at bedtime, 0 Refills, Maintenance, 03/08/23 15:15:00 EDT, Tablet, Partial fill upon patient request if the prescription is for a schedule II opioid drug. bisacodyl 10 mg rectal suppository: 1 supp = 10 mg, Rectally, Daily, PRN Constipation, 0 Refills, Maintenance, 03/08/23 15:15:00 EDT, Suppository, Partial fill upon patient request if the prescription is for a schedule II opioid drug. bisacodyl 5 mg oral delayed release tablet: = 10 mg, By Mouth, Daily, PRN Constipation, 0 Refills, Maintenance, 03/08/23 15:15:00 EDT, EC Tablet, Partial fill upon patient request if the prescriptionis for a schedule II opioid drug. clopidogrel 75 mg oral tablet: 75 mg, 1, tablet, By Mouth, Daily, Refills 0, Maintenance, 03/08/23 15:15:00 EDT, Partial fill upon patient request if the prescription is for a schedule II opioid drug. insulin lispro 100 u/ml subcutaneous injection: 2-10 units, Subcutaneous Injection, 3 times a day before meals, << Sliding Scale Comments >> 120 - 169 2 units Call if less than 100 170 - 219 4 units 220 - 269 6 units 270 - 319 8 units 320 - 369 10 units Call if greater than 400 <... lactulose 10 gm/15 ml oral syrup: 30 mL = 20 Gm, By Mouth, Daily, 0 Refills, Maintenance, 03/08/23 15:16:00 EDT, Syrup, Partial fill upon patient request if the prescription is for a schedule II opioid drug. lidocaine 5% topical film: Topically, Daily, 0 Refills, Maintenance, 03/08/23 15:16:00 EDT, Patch, Partial fill upon patient request if the prescription is for a schedule II opioid drug. methenamine hippurate 1 gm oral tablet: 1 tablet = 1 Gm, By Mouth, 2 times a day, 0 Refills, Maintenance, 01/12/16 13:14:06 oxyCODONE 5 mg oral tablet: 2.5 mg, 0.5, tablet, By Mouth, Every 4 hours, PRN, Refills 0, Tot. Refills 0, Maintenance, Pain , Moderate, 03/08/23 15:17:00 EDT, Partial fill upon patient request if theprescription is for a schedule II opioid drug. pantoprazole 40 mg oral delayed release tablet: 1 tablet = 40 mg, By Mouth, Daily, # 30 tablet, 0 Refills, Maintenance, 12/20/22 2:40:00 EST, EC Tablet Therapies Wound care: May take shower; do not apply lotions or perfumed soap to surgical wound; Pat dry do not rub wounds. Call clinic for sigs of infection to include fever, chills, reddness, pus like drainage or wound separation [phone] at any time for questions or concerns. * Karrie Ayala RN: PERFORM, SIGN, VERIFY Event Display: Case Management Discharge Plan Authored Date: [id number] Patient: ALEXY WATTS Age: 72 years Sex: Female : 1950 Associated Diagnoses: None Author: Karrie Ayala RN Discharge Plan Case Management Discharge Plan : Case Management Discharge Plan Data 03/08/2023 14:55 EDT Discharge Level of Care at Discharge [facility] facility Discharge Nursing Homes/Rehab Facilities [facility] Discharge Transportation Arranged [facility] Med Response [address] [facility] [phone] Discharge Arranged Transport Date/Time 03/08/2023 17:00 Mode of Transportation Arranged Chair [employer] Fourth Hand #1 intake/allscripts Service Categories #1 Occupational Therapy, Physical Therapy, [facility]ci Service Comments #1 You are being discharged to [facility] for continued skilled care and skilled rehab as discussed. Name of Person Notified of Transfer patient * Anu Tony RN: MODIFY, PERFORM, MODIFY Event Display: Patient Education/Instruction Authored Date: [id number] Inpatient Adult Discharge Instructions [address] [address] Name: ALEXY WATTS : 1950 Visit: 03/02/2023 11:41:00 Current Date: 03/08/2023 16:12 Account: [id number] Inpatient Adult Discharge Instructions We would like to thank you for allowing us to assist you with your healthcare needs. The following includes patient education materials and information regarding your injury/illness. Our entire staffstrives to provide an excellent experience for our patients and their families. PLEASE ENSURE YOU FOLLOW-UP PER THE INSTRUCTIONS BELOW! ?? YOUR OPINION IS IMPORTANT TO US! Please complete the survey you may receive by mail or email. Your feedback will be used to make improvements to the healthcare experiences of our patients and their families. Surveys are administered by [employer] ?? If further treatment with your primary care physician or another doctor is recommended, it is important for you to keep the appointment. Call your primary care physician or return to the Emergency Department immediately if your condition worsens, fails to improve, or new symptoms develop. If you need to find a doctor, you can call [facility] [employer] for a referral at [phone] or toll free at [phone] or log in to [email or web address] ?? You can view and manage your care through the patient portal or by using a health care jessie of your choosing. [employer] is a website that allows you to securely view your medical information including your hospital discharge summary, office visit summaries, medications and follow-up visits. You can also request appointments, renew medications, and request access to your medical information using a health care jessie of your choosing, or just ask a question. You can enroll at [email or web address] or register during your next office visit. You have been discharged from [facility], Patient Care Unit: M6. If you have any questions regarding these instructions after you leave, please call us and we will be happy to assist you. [facility] Your Care Team Attending Physician Gabo AVILES, Lm Consulting Providers Gabo AVILES, Eve Harry MD, [place] Discharging Providers Mehrdad Ivy Reason for Your Visit ABN POSITION EMISSION TOMOGRPHY LHC?PCI HV2 [id number] Your Diagnosis CAD (coronary artery disease) Diabetes Tests Performed Below is a partial list of the tests performed during your hospitalization. You may have had other tests and procedures not included in this list. Please discuss all test results with your provider. ABG POC CARTRIDGE ALT AST BASE EXCESS POC CARTRIDGE Basic Metabolic Panel BUN CALCIUM IONIZED POC CART CBC CBC w/ Differential COVID-19 (NOVEL CORONAVIRUS), PCR Creatinine Electrolytes FIBRINOGEN Glucose Level GLUCOSE POC GLUCOSE POC CARTRIDGE HEMATOCRIT ONLY HEMATOCRIT POC CARTRIDGE Hemoglobin A1c, (Diagnostic) HEMOGLOBIN POC CARTRIDGE Hgb + Hct INR Ionized Calcium Lipid Panel Magnesium Level Nephro Check Platelet Count Potassium Level POTASSIUM POC CARTRIDGE PTT SODIUM POC CARTRIDGE Type and Screen VBG POC CARTRIDGE CXR W/ Frontal and Lat Portable Chest XR Chest Portable Primary Care Provider Diana Romano MD Advance Directive . Discharge Vitals Temperature: 98.4 DegF Height: 168 cm Pulse Rate: 67 bpm Weight: 117.2 kg Respiratory Rate: 18 br/min Body Mass Index:??41.52 kg/m2??Critical Systolic Blood Pressure:??146 mm Hg??High Body surface area: 2.34 Diastolic Blood Pressure:??47 mm Hg??Low ?? Oxygen Saturation: 96 % ?? Studies Pending All tests and labs ordered during this hospital stay have been completed unless listed below. Please discuss all pending results with your provider listed above in these instructions. ?? BUN CBC Creatinine Electrolytes Magnesium Level Type and Screen What to do next Instructions From Your Doctor Discharge Orders You Need to Schedule the Following Appointments Follow Up with??[facility] Outpatient Cardiac Rehab When??04/12/2023 10:30 AM EDT Why: [phone] Where: [address] [facility] [address] [place], [place] Follow Up with??Lm Ayon When??Within 1 to 2 weeks Follow Up with??Michael Torrez When??Within 2 to 5 weeks Follow Up with??Diana Romano When??Within 2 to 5 weeks Where: [address] [address]- Business (1) Follow Up with??Patient going to [facility], then will coeme to Cardiac Rehab end of March. If she needs to push her appoitment back to a later date please call [phone] or [phone] When?? Follow Up with??[facility] Cardiac Surgery When??Within 1 week: call to discuss follow up visit Why: The cardiac surgery office should reach out to you within a week, if you do not hear from this office after 1 week call the listed number. Where: [address] [place] [id number]- Follow Up with??Shan AVILES, Michael Ren When??Within 1 week: call to discuss follow up visit Where: [address] [place] [address]- Discharge Medications ALEXY WATTS :1950 Visit Date:03/02/2023 Medications: Please continue your medications until treatment is completed or stopped by your provider. Medications not listed below should be discontinued. Discuss any questions related to medications with your provider. What How Much When Instructions Next Dose New Acetaminophen (acetaminophen 325 mg oral tablet) 975 Milligram Oral Every 6 hours 8pm tonight New amiODARONE (amiodarone 200 mg oral tablet) 200 Milligram Oral Twice a day tonight tonight New Atorvastatin (atorvastatin 80 mg oral tablet) 1 tab(s) Oral Daily at Bedtime tonight tonight New Bisacodyl (bisacodyl 10 mg rectal suppository) 1 suppository(ies) Per rectum Daily as needed for Constipation as needed as needed New Bisacodyl (bisacodyl 5 mg oral delayed release tablet) 10 Milligram Oral Daily as needed for Constipation as needed New Clopidogrel (clopidogrel 75 mg oral tablet) 1 tab(s) Oral Daily tomorrow morning tomorrow morning New Docusate-Senna (Docusate/ Senna Tablet) 2 tab(s) Oral Daily tomorrow morning tomorrow morning New Emollients, Topical (Vashe Topical Solution) 475 Milliliter Topically Every 12 hours tonight tonight New Heparin (Heparin Inj) 5,000 unit(s) Subcutaneous Injection 3 times a day tonight tonight New Lactulose (lactulose 10 gm/ 15 ml oral syrup) 30 Milliliter Oral Daily tomorrow morning tomorrow morning New Lidocaine Topical (lidocaine 5% topical film) Topically Daily tomorrow morning tomorrow morning New Oxycodone (oxyCODONE 5 mg oral tablet) 0.5 tab(s) Oral Every 4 hours as needed for Pain , Moderate as needed Highly sensitive to opiates as needed Highly sensitive to opiates New Polyethylene Glycol 3350 (MiraLax Powder) 17 gram Oral Daily tomorrow morning tomorrow morning New Remove Patch tonight tonight Changed Carvedilol (Coreg 3.125 mg oral tablet) 1 tab(s) Oral Twice a day tonight tonight Changed Cholecalciferol (Vitamin D3 1000 intl units oral capsule) 1 capsule Oral Daily tomorrow morning tomorrow morning Changed Insulin Glargine (Lantus Inj) 40 unit(s) Subcutaneous Injection Every 24 hours tomorrow at 12pm, noon tomorrow at 12pm, noon Changed Insulin Lispro (insulin lispro 100 u/ ml subcutaneous injection) 2-10 units Subcutaneous Injection 3 times a day before meals << Sliding Scale Comments >> 120 - 169 ?? 2 units Call if less than 100 170 - 219 ?? 4 units 220 - 269 ?? 6 units 270 - 319 ?? 8 units 320 - 369 ?? 10 units Call if greater than 400 << Sliding Scale Comments >> ?? before next meal if blood sugar is greater that 120, in addition to set dose of 6 units before next meal if blood sugar is greater that 120, in addition to set dose of 6 units Changed Insulin Lispro (Insulin LISPRO Inj) 6 unit(s) Subcutaneous Injection 3 times a day before meals before next ??meal, in addition to sliding scale before next ??meal, in addition to sliding scale Unchanged Albuterol (Albuterol (Eqv-ProAir HFA) 90 mcg/ inh inhalation aerosol) INHALE 2 PUFFS INTO THE LUNGS EVERY 6 HOURS NEEDED FOR COUGH OR WHEEZING OR SHORTNESS OF BREATH ?? as needed as needed Unchanged Aspirin (aspirin 81 mg oral tablet) 1 tab(s) Oral Daily tomorrow morning tomorrow morning Unchanged liraglutide (Victoza 18 mg/ 3 mL subcutaneous solution) 1.8 Milligram Subcutaneous Injection Daily tomorrow morning tomorrow morning Unchanged Methenamine (methenamine hippurate 1 gm oral tablet) 1 tab(s) Oral Twice a day tonight tonight Unchanged Multivitamin Oral Twice a day tonight tonight Unchanged Pantoprazole (pantoprazole 40 mg oral delayed release tablet) 1 tab(s) Oral Daily tomorrow morning tomorrow morning ?? What How Much When Comments Stop Taking Amlodipine 5 Milligram Oral Daily STOP Stop Taking Hydrochlorothiazide 25 Milligram Oral STOP Stop Taking Simvastatin (simvastatin 40 mg oral tablet) 1 tab(s) Oral Daily at Bedtime STOP Stop Taking Spironolactone (spironolactone 50 mg oral tablet) 1 tab(s) Oral Daily STOP Test Results Below is a partial list of the most recent Laboratory test results done prior to this discharge. You may have had other tests and procedures not included in this list. Please discuss all test resultswith your provider. Antibody Screen - Negative (02/28/2023) Blood Type - B Positive (02/28/2023) RBC Available - RE (03/01/2023) RBC Unit ID - [id number] (03/01/2023) ABG POC CARTRIDGE (03/02/2023) ???pH (POC) POC Cartridge - 7.38???pCO2 (POC) POC Cartridge - 41.9 mm Hg???pO2 (POC) POC Cartridge - 90 mm Hg???Estimated Bicarbonate (POC) POC Cart - 24.5 mmol/L???% O2 Sat Arterial (POC) POC Cartridge - 97 %???Specimen Type - Blood Gas - ARTERIAL ALT (02/28/2023) ???ALT (SGPT) - 57 units/L AST (02/28/2023) ???AST (SGOT) - 46 units/L BASE EXCESS POC CARTRIDGE (03/03/2023) ???Base Excess (POC) POC Cartridge - NEGATIVE 2 Basic Metabolic Panel (03/02/2023) ???Sodium - 141 mmol/L???Potassium - 4.1 mmol/L???Chloride - 105 mmol/L???Bicarbonate Level - 26 mmol/L???Anion Gap - 10???Glucose Level - 261 mg/dL???BUN - 22 mg/dL???Creatinine-Blood - 1.7 mg/dL???Estimated GFR Creatinine - 32 ML/MIN/1.73 M2???Calcium - 8.9 mg/dL BUN (03/08/2023) ???BUN - 53 mg/dL CALCIUM IONIZED POC CART (03/03/2023) ???Ionized Calcium (POC) POC Cartridge - 1.22 mmol/L CBC (03/08/2023) ???WBC - 9.8 k/mm3???RBC - 2.80 m/mm3???Hgb - 8.0 Gm/dL???Hct - 25.6 %???MCV - 91.4 femtoliters???MCH - 28.6 pg???MCHC - 31.3 g/dL???Platelet Count - 282 k/mm3???RDW-SD - 49.7 femtoliters???MPV - 11.9 femtoliters???Nucleated RBC (Automated) - 0.3 #/100 WBC'S???Abs. NRBC - 0.0 k/mm3 CBC w/ Differential (03/03/2023) ???WBC - 11.7 k/mm3???RBC - 3.08 m/mm3???Hgb - 9.1 Gm/dL???Hct - 28.4 %???MCV - 92.2 femtoliters???MCH - 29.5 pg???MCHC - 32.0 g/dL???Platelet Count - 188 k/mm3???RDW-SD - 52.5 femtoliters???MPV - 12.1 femtoliters???Nucleated RBC (Automated) - 0.0 #/100 WBC'S???Abs. NRBC - 0.0 k/mm3???Abs. Neut - 9.7 k/mm3???Abs. Lymph - 1.1 k/mm3???Abs. Roosevelt - 0.7 k/mm3???Abs. Eo - 0.0 k/mm3???Abs. Baso - 0.1 k/mm3???Neut % - 82.9 %???Lymph % - 9.5 %???Roosevelt % - 6.3 %???Eos % - 0.1 %???Baso % - 0.6 %???Imm Gran- 0.6 %???Abs. Imm Gran - 0.1 k/mm3 COVID-19 (NOVEL CORONAVIRUS), PCR (03/08/2023) ???COVID-19 by RT-PCR - NEGATIVE Creatinine (03/08/2023) ???Creatinine-Blood - 1.6 mg/dL???Estimated GFR Creatinine - 33 ML/MIN/1.73 M2 Electrolytes (03/08/2023) ???Sodium - 138 mmol/L???Potassium - 4.7 mmol/L???Chloride - 101 mmol/L???Bicarbonate Level - 25 mmol/L???Anion Gap - 12 FIBRINOGEN (03/02/2023) ???Fibrinogen - 234 mg/dL Glucose Level (03/03/2023) ???Glucose Level - 109 mg/dL GLUCOSE POC (03/08/2023) ???Glucose, POC - 195 mg/dL GLUCOSE POC CARTRIDGE (03/03/2023) ???Glucose (POC) POC Cartridge - 109 HEMATOCRIT ONLY (03/02/2023) ???Hct - 21.7 % HEMATOCRIT POC CARTRIDGE (03/03/2023) ???Hematocrit (POC) POC Cartridge - 26 % Hemoglobin A1c, (Diagnostic) (02/28/2023) ???Hemoglobin A1C (Monitoring) - 7.5 % HEMOGLOBIN POC CARTRIDGE (03/03/2023) ???Hemoglobin (POC) POC Cartridge - 8.8 Gm/dL Hgb + Hct (03/02/2023) ???Hgb - 9.2 Gm/dL???Hct - 28.5 % INR (03/02/2023) ???INR - 1.1???Protime (PT) - 11.4 seconds Ionized Calcium (03/02/2023) ???Calcium, Ionized pH Corrected - 1.32 mmol/L Lipid Panel (03/01/2023) ???Cholesterol - 142 mg/dL???Triglycerides - 162 mg/dL???HDL Cholesterol - 50 mg/dL???LDL Cholesterol - 60 mg/dL???Non HDL Cholesterol - 92 mg/dL Magnesium Level (03/08/2023) ???Magnesium - 2.4 mg/dL Nephro Check (03/03/2023) ???Acute Kidney Injury Risk Score - 0.61 Platelet Count (03/02/2023) ???Platelet Count - 165 k/mm3 Potassium Level (03/02/2023) ???Potassium - 4.5 mmol/L POTASSIUM POC CARTRIDGE (03/03/2023) ???Potassium (POC) POC Cartridge - 4.1 mmol/L PTT (03/02/2023) ???APTT - 24.6 seconds SODIUM POC CARTRIDGE (03/03/2023) ???Sodium (POC) POC Cartridge - 142 mmol/L Type and Screen (03/02/2023) ???Blood Type - B Positive???Antibody Screen - Negative VBG POC CARTRIDGE (03/03/2023) ???pH Venous (POC) POC Cartridge - 7.33???pCO2 Venous (POC) POC Cartridge - 45.9 mm Hg???pO2 Venous(POC) POC Cartridge - 34 mm Hg???Est Bicarbonate (POC) POC Cartridge - 24.2 mmol/L???% O2 Sat Venous (POC) POC Cartridge - 61???Specimen Type - Blood Gas - MIXED VENOUS Allergies (NKA means No Known Allergies) NKA Problems Active Problems??(12) Atypical chest pain?? Depression?? Diabetes (insulin dependent)?? Elevated Cholesterol?? Fall?? GERD?? HTN?? Knee pain, left?? Morbid Obesity?? Neuropathy?? Retinopathy?? Severe obesity?? Education Materials Below is the list of Educational Leaflet Providered with your Discharge Instructions. Clopidogrel Oral Tablet?? Lidocaine Medicated Patch?? Amiodarone Oral Tablet?? Atorvastatin Oral Tablet?? Oxycodone Oral Tablet?? Heparin Injection?? Cardiac Surgery Discharge Instructions?? Surgery Radial Cath Approach Discharge Instructions?? Procedural Sedation?? Bleeding or Hematoma After Cardiac Catheterization?? Valuables and Belongings I fully understand and agree that [facility] accepts no responsibility for all my personal property including clothing, toilet articles, radios, jewelry, dentures, hearing aids, rings, money, or any other property that is in my possession or is brought to me after admission. I understand certain valuables may be placed in a hospital safe for a short period of time. I understand that the hospital is not liable for loss or damage due to accident, fire, or other natural occurrence while said property is in the safe. I accept full responsibility for any personal property that I keep with me, and will not hold the hospital responsible in case of loss or disappearance. I acknowledge that i have been encouraged to send valuables and belongings home. ?? Review of Valuable and Belonging List: With patient Date for Pt to Sign Valuables/Belongings: 02/28/23 16:03:00 ?? Other Discharge Information ?? Wound Assessment?? Wound Assessment?? Surgical Incision Type I: Surgical Surgical Incision Assessment I: Clean, dry, intact Surgical Incision I, Surrounding Skin: Intact Surgical Incision I, Odor: No Surgical Incision Type II: Surgical Surgical Incision Location II: Leg, left lower Surgical Incision Assessment II: Clean, dry, intact Surgical Incision II, Surrounding Skin: Intact ? Case Management Discharge Plan?? Discharge Plan?? Discharge Agency Information?? Discharge Level of Care at Discharge: [facility] facility Agency Fourth Hand #1: intake/allscripts Discharge Transportation Arranged: [facility] [address] [facility] [id number] [phone] Service Categories #1: Occupational Therapy, Physical Therapy, [facility] Mode of Transportation Arranged: Chair Van Service Comments #1: You are being discharged to [facility] for continued skilled care andskilled rehab as discussed. Discharge Arranged Transport Date/Time: 03/08/23 17:00:00 Name of Person Notified of Transfer: patient Discharge Nursing Homes/Rehab Facilities: [facility] ? Pulmonary Rehab Status?? Pulmonary Rehab Discharge Status?? Respiratory Rate: 18 br/min PEEP: 5 ? Cardiac Rehab Assessment?? Cardiac Rehab Inpatient Assessment?? Comments-Education: s/p ??risk factor education/ s/p sternal precautions Comments-Exercise Activity: Increase as tolerated/phase 2 Comments-Nutrition: Heart healthy diet Comments-Lipids: followed by PCP Patient attending Phase II: Yes Phase II Site of Care: [facility] [address] [facility] [phone] Common Emergency Awareness Tips IS IT A STROKE? Act FAST and Check for these signs: FACE Does the face look uneven? ARM Does one arm drift down? SPEECH Does their speech sound strange? TIME Call at any sign of stroke ?? Heart Attack Signs Chest discomfort: Most heart attacks involve discomfort in the center of the chest and lasts more than a few minutes, or goes away and comes back. It can feel like uncomfortable pressure, squeezing, fullness or pain. Discomfort in upper body: Symptoms can include pain or discomfort in one or both arms, back, neck, jaw or stomach. Shortness of breath: With or without discomfort. Other signs: Breaking out in a cold sweat, nausea, or lightheaded. Remember, MINUTES DO MATTER. If you experience any of these heart attack warning signs, call to get immediate medical attention! ?? Smoking can increase your chances of developing chronic health problems and can cause harmful effects to other family members in your house. If you smoke, you are strongly encouraged to quit. Please call [facility] Link at [phone] or [phone] ([phone]) or log in to [email or web address] for referrals to smoking cessation programs. ?? 340 Suicide & Crisis Lifeline is available 11/06 if you or someone you know needs to find a reason to keep living. By calling 678 you'll be connected to a skilled, trained counselor at a crisis center in your area. INPATIENT DISCHARGE INSTRUCTIONS SIGNATURE PAGE ALEXY WATTS Location:[facility] Registration Date and Time:03/02/2023 11:41 EDT Primary Care Physician: Rosalina AVILES, Diana Worley, I ALEXY WATTS, have received the above patient education materials/instructions and have verbalized understanding. If ambulance or transport services are being used I further acknowledge being givena choice of service. ?? If you need to contact me, please call me at this number: . Patient/Vehicle Safety Inspector Name: Patient/Vehicle Safety Inspector Signature: Relationship to Patient: Witness Name/Signature: Date: * Denise Miller: SIGN Denise Miller: SIGN, SIGN Denise Miller: SIGN, PERFORM, SIGN Event Display: Patient Education Handout Authored Date: * Anu Tony RN: PERFORM Event Display: Patient Education Leaflets Authored Date: Clopidogrel Oral Tablet ?? [id number] Clopidogrel Oral Tablet Brands: Plavix Uses This medicine is used for the following purposes: ??? prevent blood clots ??? prevent stroke ??? prevent heart attack ?? Instructions This medicine may be taken with or without food. This medicine will work best if you take it at about the same time every day. Keep the medicine at room temperature. Avoid heat and direct light. It is important that you keep taking each dose of this medicine on time even if you are feeling well. If you forget to take a dose on time, take it as soon as you remember. If it is almost time for thenext dose, do not take the missed dose. Return to your normal schedule. Do not take 2 doses at one time. Drug interactions can change how medicines work or increase risk for side effects. Tell your healthcare providers about all medicines taken. Include prescription and dqvb-ryl-mvteshy medicines, vitamins, and herbal medicines. Speak with your doctor or pharmacist before starting or stopping any medicine. ?? Cautions Tell your doctor and pharmacist if you ever had an allergic reaction to a medicine. Do not use the medication any more than instructed. Speak with your doctor before taking any medicine with aspirin. Contact your doctor if you notice a change in the amount or darkening of your urine. Tell the doctor or pharmacist if you are , planning to be , or . Call your doctor right away if you notice any unusual bleeding or bruising. Do not share this medicine with anyone who has not been prescribed this medicine. Some patients have serious side effects from this medicine. Ask your pharmacist to show you the information from the Food and Drug Administration (FDA) and discuss it with you. ?? Side Effects The following is a list of some common side effects from this medicine. Please speak with your doctor about what you should do if you experience these or other side effects. ??? itching Call your doctor or get medical help right away if you notice any of these more serious side effects: ??? loss of balance ??? bleeding or bruising ??? chest pain ??? coughing up blood or vomit that looks like coffee grounds ??? fever ??? swelling in the neck or throat ??? severe or persistent headache ??? fast or irregular heart beats ??? pale or blue skin, lips or fingernails ??? bloody or dark, tarry stools ??? symptoms of stroke (such as one-sided weakness, slurred speech, confusion) ??? unusual or unexplained tiredness or weakness ??? blood in urine ??? yellowing of eyes or skin A few people may have an allergic reaction to this medicine. Symptoms can include difficulty breathing, skin rash, itching, swelling, or severe dizziness. If you notice any of these symptoms, seek medical help quickly. ?? Extra Please speak with your doctor, nurse, or pharmacist if you have any questions about this medicine. ?? [email or web address] IMPORTANT NOTE: This document tells you briefly how to take your medicine, but it does not tell youall there is to know about it. Your doctor or pharmacist may give you other documents about your medicine. Please talk to them if you have any questions. Always follow their advice. There is a more complete description of this medicine available in Syriac. Scan this code on your smartphone or tablet or use the web address below. You can also ask your pharmacist for a printout. If you have any questions, please ask your pharmacist. The display and use of this drug information is subject to Terms of Use. Copyright(c) 2022 [employer]. ?? The [employer]. All rights reserved. This information is not intended as a substitute for professional medical care. Always follow your healthcare professional's instructions. ?? * Anu Tony RN: PERFORM Event Display: Patient Education Leaflets Authored Date: [id number] Lidocaine Medicated Patch ?? [id number] Lidocaine Medicated Patch Brands: Absorbine Lidocaine, Lidoderm, ZTlido Uses This medicine is used for the following purposes: ??? itching ??? pain ??? skin irritation ??? skinwound ?? Instructions DO NOT take this medicine by mouth. Apply the patch to the most painful area. The patch should be removed after 8 or 12 hours depending on the brand of your product. Read the package instructions or ask your pharmacist how long the patch can be applied to the skin. Keep the medicine at room temperature. Avoid heat and direct light. You may cut the patch with scissors if needed. Be sure to cut the patch before peeling away the liner protecting the adhesive. Wash your hands before and after handling this medicine. Do not use if the pouch containing the medicine is torn or damaged. Remove the plastic liner that protects the sticky side of the patch before applying to the skin. Be sure the area of skin is clean and dry before putting on a new patch. Apply the patch only to normal looking skin. Avoid skin that is red, scraped, or damaged. Press the patch firmly for a few seconds to make sure it stays in place. If the patch does not stick, speak with your doctor or pharmacist. Do not cover the patch with bandage or tape unless instructed by your doctor or pharmacist. After removing the patch, fold it together and discard it out of reach of children and pets. Do not dispose of a used patch by flushing it into the toilet. Avoid getting the medicine in the eyes, nose, or mouth. Wash the medicine off your fingers after applying it. If the patch causes a feeling of burning or pain at the location of the patch, remove the patch until the feeling goes away. If the patch falls off or you forgot to use the patch on time, apply a new patch immediately to a different location. Replace this new patch at your next usual dosing time. Do not apply heat on the area with the patch. Avoid heating blankets, suntan beds, or hot tubs. Ask the doctor or pharmacist if you can bathe, swim or shower while wearing the patch. Clothing may be worn over the patch. Avoid touching or scratching the area of the skin after the patch is removed. Drug interactions can change how medicines work or increase risk for side effects. Tell your healthcare providers about all medicines taken. Include prescription and njny-qed-aymumhc medicines, vitamins, and herbal medicines. Speak with your doctor or pharmacist before starting or stopping any medicine. Tell your doctor if symptoms do not get better or if they get worse. ?? Cautions Some patients taking this medicine have experienced serious side effects. Please speak with your doctor to understand the risks and benefits associated with this medicine. Tell your doctor and pharmacist if you ever had an allergic reaction to a medicine. Do not use the medication any more than instructed. Tell the doctor or pharmacist if you are , planning to be , or . Ask your doctor if patch should be removed before having an MRI scan to avoid serious price. Do not share this medicine with anyone who has not been prescribed this medicine. ?? Side Effects The following is a list of some common side effects from this medicine. Please speak with your doctor about what you should do if you experience these or other side effects. ??? burning or stinging ??? numbness where the medicine is applied ??? skin irritation where medicine is applied Call your doctor or get medical help right away if you notice any of these more serious side effects: ??? blurry vision ??? shallow, irregular breathing ??? dizziness or drowsiness ??? lack of energy and tiredness ??? fast, irregular, or slow heartbeat ??? mood changes ??? pale or blue skin, lips or fingernails ??? ringing in the ears ??? seizures ??? shortness of breath A few people may have an allergic reaction to this medicine. Symptoms can include difficulty breathing, skin rash, itching, swelling, or severe dizziness. If you notice any of these symptoms, seek medical help quickly. ?? Extra Please speak with your doctor, nurse, or pharmacist if you have any questions about this medicine. ?? [email or web address]-[email or web address] IMPORTANT NOTE: This document tells you briefly how to take your medicine, but it does not tell youall there is to know about it. Your doctor or pharmacist may give you other documents about your medicine. Please talk to them if you have any questions. Always follow their advice. There is a more complete description of this medicine available in Syriac. Scan this code on your smartphone or tablet or use the web address below. You can also ask your pharmacist for a printout. If you have any questions, please ask your pharmacist. The display and use of this drug information is subject to Terms of Use. Copyright(c) 2022 [employer]. ?? The [employer]. All rights reserved. This information is not intended as a substitute for professional medical care. Always follow your healthcare professional's instructions. ?? * Anu Tony RN: PERFORM Event Display: Patient Education Leaflets Authored Date: [id number] Amiodarone Oral Tablet ?? [address] Amiodarone Oral Tablet Brands: Cordarone, Pacerone Uses For irregular heartbeat. ?? Instructions This medicine may be taken with or without food, but it is important to take it the same way each time. This medicine will work best if you take it at about the same time every day. Store at room temperature away from heat, light, and moisture. Do not keep in the bathroom. Avoid grapefruit juice while on this medicine. This medicine can make you sensitive to the sun. Use sunscreen or protective clothing when in sun. It may take several weeks for this medicine to fully work. It is important that you keep taking each dose of this medicine on time even if you are feeling well. If you forget to take a dose on time, take it as soon as you remember. If it is almost time for thenext dose, do not take the missed dose. Return to your normal schedule. Do not take 2 doses at one time. Drug interactions can change how medicines work or increase risk for side effects. Tell your healthcare providers about all medicines taken. Include prescription and nnmw-jyk-spwlirx medicines, vitamins, and herbal medicines. Speak with your doctor or pharmacist before starting or stopping any medicine. Tell your doctor if symptoms do not get better or if they get worse. Keep all appointments for medical exams and tests while on this medicine. ?? Cautions Tell your doctor and pharmacist if you ever had an allergic reaction to a medicine. Some patients with weak hearts may have worsening of symptoms. If you notice difficulty breathing, weight gain, or swelling of your legs or ankles, let your doctor know right away. This medicine is associated with an increased risk of serious heart problems, heart attack, and stroke. Please speak with your doctor about the risks and benefits of using this medicine. Contact yourdoctor immediately if you experience chest pain or difficulty breathing. Do not use the medication any more than instructed. Your ability to stay alert or to react quickly may be impaired by this medicine. Do not drive or operate machinery until you know how this medicine will affect you. Please check with your doctor before drinking alcohol while on this medicine. Do not breastfeed while on this medicine. This medicine can pass through breast milk to the baby. This medicine can hurt a new baby in the womb. If you become while on this medicine, tell your doctor immediately. Your doctor may switch you to a different medicine. Do not share this medicine with anyone who has not been prescribed this medicine. Some patients have serious side effects from this medicine. Ask your pharmacist to show you the information from the Food and Drug Administration (FDA) and discuss it with you. ?? Side Effects The following is a list of some common side effects from this medicine. Please speak with your doctor about what you should do if you experience these or other side effects. ??? decreased appetite ??? constipation ??? lack of energy and tiredness ??? nausea and vomiting Call your doctor or get medical help right away if you notice any of these more serious side effects: ??? agitated feeling or trouble sleeping ??? loss of balance ??? bleeding or bruising ??? chest pain ??? changes in memory, mood, or thinking ??? difficulty concentrating ??? cough/wheezing/shortnessof breath ??? dizziness ??? swelling of the legs, feet, and hands ??? fainting ??? swelling in the neck or throat ??? hair loss ??? numbness or tingling in hands and feet ??? fast, irregular, or slowheartbeat ??? signs of liver damage (such as yellowing of eye or skin, dark urine, or unusual tiredness) ??? shakiness ??? blue-borges skin color ??? sweating ??? difficulty adjusting to changes in temperature ??? blurring or changes of vision ??? weakness ??? sudden or unexplained change in weight A few people may have an allergic reaction to this medicine. Symptoms can include difficulty breathing, skin rash, itching, swelling, or severe dizziness. If you notice any of these symptoms, seek medical help quickly. ?? Extra Please speak with your doctor, nurse, or pharmacist if you have any questions about this medicine. ?? [email or web address] IMPORTANT NOTE: This document tells you briefly how to take your medicine, but it does not tell youall there is to know about it. Your doctor or pharmacist may give you other documents about your medicine. Please talk to them if you have any questions. Always follow their advice. There is a more complete description of this medicine available in Syriac. Scan this code on your smartphone or tablet or use the web address below. You can also ask your pharmacist for a printout. If you have any questions, please ask your pharmacist. The display and use of this drug information is subject to Terms of Use. Copyright(c) 2022 [employer]. ?? The [employer]. All rights reserved. This information is not intended as a substitute for professional medical care. Always follow your healthcare professional's instructions. ?? * Event Display: Cardiac Rhythm Strips Authored Date: * Event Display: Hemodynamic Procedure Report Authored Date: * Event Display: VL Venous Duplex Mapping Lower Ext Bilat Authored Date: Status:Open Vascular Lower Extremities Vein Mapping Study Demographics Procedure Information Patient name: MAC TRACEY Procedure date: 02/28/2023 2:12 PM Corporate Proc. sub type: Veins: Lower Extremity Vein Mapping, Venous Duplex Map Lower Extremity Gender: Female Bilateral. Date of : 1950 Accession No: [id number] Age: 72 year(s) Account No: [id number] Patient status: Routine Procedure Staff Admit Status: Outpatient Ordering physician: Gabo Amato MD Probe: L9-3 Referring Physician: Gabo Amato MD Technical quality: Adequate visualization Attending Physician: Michael Torrez MD Facility: [facility] Admitting Physician: Michael Torrez MD Study location: [facility] [place] Vascular Lab Upfitter: Anny Issa RDDC Procedure consent obtained: Interpreting physician: Grant Nelson MD No Indications Pre-Op Evaluation and Coronary Atherosclerosis. Deep Veins: Right Left Location Compression Signal Compression Signal Common Femoral Yes Yes LE Vein Mapping Findings Great Saphenous : Right Left AP AP Diam DIam Location (mm) Branches Quality (mm) Branches Quality Sapheno Femoral Junction 4.3 6.8 Yes GSV High Thigh 4 4 GSV Mid Thigh 1.8 Yes 3 Yes GSV Low Thigh 3.9 Yes GSV Knee 3.6 GSV High Calf 3.2 Yes GSV Mid Calf 2.8 Yes GSV Low Calf 2.8 GSV Ankle 3.1 Small Saphenous: Right Left AP AP Diam DIam Location (mm) Branches Quality (mm) Branches Quality SSV High Calf 3.8 3.9 SSV Low Calf 2.5 2.6 Physician Conclusions Summary: Right side: The Great Saphenous Vein and Small Saphenous Vein are patent with measurements as noted above. Unable to visualize the Great Saphenous Vein past the mid thigh due to small size of vessel. Side side: The Great Saphenous Vein and Small Saphenous Vein are patent with measurements as noted above. * Event Display: VL Venous Duplex Mapping Lower Ext Bilat Authored Date: [id number] * [facility]SPowerscribe , CIS S: TRANSCRIBE Micheal Santiago MD: VERIFY Event Display: Result: Authored Date: [id number] Chest 2 Views Frontal and Lat Reason: Cough; Clinical Question(s): Pneumonia; Order Comment: @1435, per RN patient unavailable tocome down due to getting scans in room, then going to M6. Floor will call when patient is transferred. MM COMPARISON: 12/19/2022. FINDINGS: LINES AND TUBES: None. LUNGS AND PLEURA: Central vascularity is mildly prominent and indistinct. Trace effusions are noted. Lungs are slightly hyperinflated. No pneumothorax. HEART, MEDIASTINUM AND LARISSA: Moderate prominence of the cardiac silhouette. Normal mediastinal and hilar contour. BONES AND SOFT TISSUES: No acute abnormality. IMPRESSION: Cardiac enlargement with pulmonary edema and trace effusions consistent with CHF. Mild COPD. No pneumonia. WSN: [id number] Ordering Physician: Jae Agustin Dictated By: Micheal Santiago MD Dictated Date/Time: 02/28/23 8:46 pm Reviewed By: Micheal Santiago MD Signed By: Micheal Santiago MD Signed Date/Time: 02/28/23 8:46 pm Transcribed By: SADIQ Transcribed Date/Time: 02/28/23 8:45 pm Cardiac catheterization study * Event Display: Cardiac Pet Resort Concierge Report Authored Date: [id number] Cardiac Diagnostic Report Demographics Patient Name MAC TRACEY Gender Female Corporate Race Black [facility] Room Number [id number] Height 66.14 inches Date of 1950 Weight 251.77 pounds Age 72 year(s) BSA 2.21 m2 Accession Number [id number] BMI 40.46 kg/m2 Referring Physician Michael Torrez MD Date of Study 02/28/2023 Performing Physician Michael Torrez MD Fellow Rayo Cummins Interventional Physician Procedure Procedure Type Diagnostic procedure:Coronary Angiography with [facility] ACC Diagnostic Catheterization Status:Elective Indications Indications: Angina. Clinical History Admission Medications + +------+-------+ + + +---------+ !Medication !Dosage!Times !Last !Last !Administered !Comments ! ! ! !Per Day!Delivery !Delivery ! ! ! ! ! ! !Date !Time ! ! ! + +------+-------+ + + +---------+ !Aspirin (any)!81 mg ! !02/28/2023 !06:00 ! ! ! + +------+-------+ + + +---------+ !Beta Wiley ! ! ! ! ! ! ! !(any) ! ! ! ! ! ! ! + +------+-------+ + + +---------+ !Statin (any) ! ! ! ! ! ! ! + +------+-------+ + + +---------+ !Calcium ! ! ! ! ! ! ! !Channel ! ! ! ! ! ! ! !Wiley ! ! ! ! ! ! ! + +------+-------+ + + +---------+ Clinical Evaluation Leading to Procedure Diagnosed on 02/28/2023 00:00. - The patient's CAD presentation was assessed as: Stable angina. - The patient's anginal syndrome during the past two weeks was assessed as: Class III according to the [place] Cardiovascular Society Classification System (CCS). Anti-anginal medications were prescribed during the past two weeks. The medications are: Beta Blockers and Long Acting Nitrates. Pharma Nuclear study showed Positive results with High ischemic risk. ACC Risk Factors The patient risk factors include:obesity, physical activity, hypercholesterolemia, hypertension, insulin-treated diabetes mellitus and dyslipidemia. Additional Clinical History:72-year-old female with possible history of type 2 diabetes, hypertension, obesity, ongoing exertional chest pressure and dyspnea. PET stress documented circumflex ischemia. She was referred for cardiac catheterization Procedure Data Procedure Date Date: 02/28/2023Start: 09:40End: 10:09 The procedure was explained in detail to the patient. Risks, complications and alternative treatments were reviewed. Written consent was obtained. Entry Locations - Retrograde Percutaneous access was performed through the Right Radial artery. A 6 Fr sheath was inserted. Hemostasis was successfully obtained using Prelude Sync EZ. Procedure Medications - Lidocaine 2% S.C. Right Wrist 3 ml. - Versed (Midazolam) I.V. 1 mg. - Fentanyl I.V. 50 mcg. - Nitroglycerin I.A. 200 mcg. - Heparin I.V. 5000 units. Sedation: My intra-service moderate sedation time was: from 0950 to 1010. Refer to procedural log for detailed chronological information. Contrast Material - Omnipaque 30 ml Diagnostic Catheters - [id number] RADIAL TIG 4.0 RADIFOCUS OPTITORQUE CATHETERwas used for: Left heart catheterization. - [id number] RADIAL TIG 4.0 RADIFOCUS OPTITORQUE CATHETERwas used for: Right coronary angiography. - [id number] RADIAL TIG 4.0 RADIFOCUS OPTITORQUE CATHETERwas used for: Left coronary angiography. Fluoroscopy Time: Diagnostic: 3:30 minutes. Total: 3:30 minutes. Fluoroscopy Dose: Diagnostic: 310 mGy. Total: 310 mGy. Dose Area Product:Diagnostic: 24.5 mGy/cm2. Total: 24.5 mGy/cm2. Dose Area Product:Diagnostic: 2.45 ??Gy/m2. Total: 2.45 ??Gy/m2. Angiographic Findings Cardiac Arteries and Lesion Findings LMCA: Lesion in LMCA: Distal subsection.60% stenosis . Pre procedure NOAH III flow was noted. The lesion was concentric. LAD: Lesion in Prox LAD: Proximal subsection.40% stenosis 6 mm length. Pre procedure NOAH III flow was noted. LCx: Lesion in Mid CX: Proximal subsection.100% stenosis . Pre procedure NOAH 0 flow was noted. Chronic total occlusion. RCA: Lesion in Dist RCA: Distal subsection.95% stenosis 10 mm length. Pre procedure NOAH II flow was noted. Good runoff was present.The lesion was diffuse.Bifurcation lesion. Lesion in 1st RPL: Ostial.95% stenosis . Pre procedure NOAH III flow was noted. Lesion in R PDA: Ostial.95% stenosis . Pre procedure NOAH III flow was noted. Lesion in Prox RCA: Proximal subsection.30% stenosis 8 mm length. Pre procedure NOAH III flow was noted. Hemodynamics Condition: Rest O2 Consumption: Estimated: 211.03Heart Rate: 79 bpm Pressures (mmHg) +--------+ + !Site !Pressure ! +--------+ + !R Radial!193/68 (114)! +--------+ + !LV !177/8 ,25 ! +--------+ + !AO !173/71 (114)! +--------+ + !LV !176/8 ,23 ! +--------+ + Valve Gradients and Areas +------+----+----+----+-----+----+------+ !Valve !Peak!Mean!Area!Index!Flow!Source! +------+----+----+----+-----+----+------+ !Aortic!3 !0 ! ! ! ! ! +------+----+----+----+-----+----+------+ !Aortic!3 !0 ! ! ! ! ! +------+----+----+----+-----+----+------+ Shunts Oxygen Values O2 Capacity 134.64 O2 Consumption 211.03 Interventional Procedure Conclusions Diagnostic Summary Severe distal left main stenosis Chronic total occlusion of the mid circumflex Severe distal RCA bifurcation stenosis Elevated LV end-diastolic pressure No significant gradient between the left ventricle and aorta upon pullback Systemic hypertension Right radial artery hemostatic with compressive device Diagnostic Recommendations Given high complexity coronary anatomy including left main stenosis and RCA bifurcation stenosis, history of diabetes, recommend evaluation for CABG surgery. ACC Diagnostic Recommendations: CABG. Complications:None. Signatures * Event Display: Cardiac Pet Resort Concierge Report Authored Date: History and physical note * Vamsi AVILES, [facility]: PERFORM Event Display: History and Physical Hospital Authored Date: Patient: ??ALEXY WATTS ? Age:??72 Years?Sex:??Female?:??1950?? Chief Complaint/Reason for Consultation Chest pain and shortness of breath History of Present Illness 72-year-old female??who underwent cardiac cath and was found to have left main disease and multivessel coronary artery disease??is now being admitted for CABG evaluation ?? Patient told me that for past 1 year she has been having shortness of breath and chest pain with exertion. ??Symptom has been associated with fatigue.?? Intermittent. ??Chest pain located in the center of chest.?? Rest relieves the pain.?? No relation with inspiration. ??No numbness, tingling or focal weakness. ??No nausea vomiting, fever, chills. ??No orthopnea or PND ?? Patient was admitted in the month of December with non-ST segment elevation NJ??and cardiology did a stress test as outpatient which was positive so??patient underwent cardiac cath Review of Systems ROS: All systems reviewed and negative except as in HPI ?? Past medical history: History of diabetes mellitus, hypertension, stage III chronic kidney disease, asthma, hyperlipidemia, obesity, cholecystitis, anemia, GERD Social history:??Patient denies smoking, alcohol or drug abuse Family history: Both parents with history of coronary artery disease Objective Vital Signs?? Temperature: 97 DegF (02/28/23 07:45:00) Temperature Route: Temporal (02/28/23 07:45:00) Pulse Rate: 72 bpm (02/28/23 07:45:00) Heart Rate Monitored: 71 bpm (02/28/23 12:45:00) Respiratory Rate:??9 br/min??Low (02/28/23 12:45:00) Systolic Blood Pressure:??203 mm Hg??High (02/28/23 12:45:00) Diastolic Blood Pressure: 78 mm Hg (02/28/23 12:45:00) Blood pressure sites: Arm, left (02/28/23 12:45:00) Mean Arterial Pressure: 111 mm Hg (02/28/23 07:45:00) Pulse Pressure: 125 mm Hg (02/28/23 12:45:00) Oxygen Saturation: 98 % (02/28/23 12:45:00) Mode of Delivery (Oxygen): Room air (02/28/23 12:45:00) ? 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 Head: atraumatic, normocephalic ENMT: moist mucus membranes, nares patent with no discharge Musculoskeletal: no joint tenderness, swelling or limitation of movement ?? Assessment/Plan ??72-year-old female here with left main coronary artery disease along with??multivessel coronary artery disease ?? Left main coronary artery disease Multivessel coronary artery disease ?? Patient with??exertional symptoms Had non-ST segment elevation NJ in the month of December 2022.?? Stress test outpatient was positive Cardiac cath??with left main disease??as below ??Diagnostic Summary ??Severe distal left main stenosis ??Chronic total occlusion of the mid circumflex ??Severe distal RCA bifurcation stenosis ??Elevated LV end-diastolic pressure ??No significant gradient between the left ventricle and aorta upon pullback ??Systemic hypertension ??Right radial artery hemostatic with compressive device ?Diagnostic Recommendations ??Given high complexity coronary anatomy including left main stenosis and RCA ??bifurcation stenosis, history of diabetes, recommend evaluation for CABG ??surgery. ?? Currently no chest pain or shortness of breath We will start patient on aspirin and high-dose statin Cardiac surgery to be consulted by cardiology Monitor for recurrence of symptoms In case of chest pain at rest I will start patient on IV heparin Monitor on telemetry for any life-threatening arrhythmias Hold Plavix for??ARB/ALE inhibitor Patient had echocardiogram done??in December 2022 so will not repeat Patient also had CT chest??which was done??in December so will not repeat We will get chest x-ray, lipid panel, hemoglobin A1c ?? History of lung nodule: Outpatient follow-up Asthma: As needed albuterol History of abnormal AST and ALT: Likely from??obesity related??hepatic steatosis.?? Will repeat ASTand ALT Diabetes mellitus: Reduce dose of Lantus along with sliding scale insulin. ??We will get??hemoglobin A1c Hyperlipidemia: Changing simvastatin to Lipitor. ??Lipid panel Hypertension: Blood pressure significantly elevated.?? Will give 1 dose of clonidine but will resume spironolactone hydrochlorothiazide??along with carvedilol and??amlodipine. ??Monitor blood pressure Stage III chronic kidney disease: Creatinine at baseline. ??Avoid nonsteroidal anti-inflammatory drugs Anemia: Follow-up CBC DVT prophylaxis:??Subcu heparin Obesity: Lifestyle modification GERD: PPI Histories Allergies Allergies ?(Active and Proposed Allergies Only) NKA? (Severity: Unknown severity, Onset: Unknown) ? Medications Home Medications Albuterol (Albuterol (Eqv-ProAir HFA) 90 mcg/inh inhalation aerosol)?INHALE 2 PUFFS INTO THE LUNGS EVERY 6 HOURS NEEDED FOR COUGH OR WHEEZING OR SHORTNESS OF BREATH Amlodipine?5?Milligram?By Mouth?Daily Aspirin (aspirin 81 mg oral tablet)?1?tab(s)?81?Milligram?By Mouth?Daily Carvedilol (carvedilol 6.25 mg oral tablet)?6.25?Milligram?1?tablet?By Mouth?2 times a day Cholecalciferol (Vitamin D3 1000 intl units oral capsule)?1?capsule?1,000?InternationalUnit?By Mouth Hydrochlorothiazide?25?Milligram?By Mouth Insulin Glargine (insulin glargine 100 u/ml subcutaneous solution)?72?unit(s)?SubcutaneousInjection?Daily at bedtime Insulin Lispro (Humalog 100 u/ml subcutaneous injection)?See Instructions?3 times a day before meals?Subcutaneous Infusion/sliding scale 6-20units liraglutide (Victoza 18 mg/3 mL subcutaneous solution)?1.8?Milligram?Subcutaneous Injection?Daily Methenamine (methenamine hippurate 1 gm oral tablet)?1?tab(s)?1?gram?By Mouth?2 times a day Multivitamin?By Mouth?2 times a day Pantoprazole (pantoprazole 40 mg oral delayed release tablet)?1?tab(s)?40?Milligram?By Mouth?Daily Simvastatin (simvastatin 40 mg oral tablet)?40?Milligram?1?tablet?By Mouth?Daily at bedtime Spironolactone (spironolactone 50 mg oral tablet)?1?tab(s)?50?Milligram?By Mouth?Daily ? Results ? CBC, CBC w/Diff?? No qualifying data available. ?? BMP, Mg, and Phos?? No qualifying data available. ?? Coagulation Profile?? No qualifying data available. ?? LFT?? No qualifying data available. ?? Urinalysis?? No qualifying data available. ? Blood Gases?? No qualifying data available. ?? Uric/LDH?? No qualifying data available. ? Labs ordered??but recent labs reviewed * Event Display: History and Physical Hospital Authored Date: EKG study * Event Display: EKG Authored Date: * Event Display: EKG Authored Date: * Event Display: ECG 12-Lead Authored Date: Please click on pdf link to open report * Event Display: ECG 12-Lead Authored Date: Ventricular Rate: 70 BPM Atrial Rate: 70 BPM P-R Interval: 152 ms QRS Duration: 70 ms Q-T Interval: 394 ms QTC Calculation(Bazett): 425 ms P [place]: 59 degrees R [place]: -43 degrees T [place]: -16 degrees Normal sinus rhythm Left axis deviation Nonspecific ST and T wave abnormality Poor R wave progression Abnormal ECG When compared with ECG of 02-MAR-2023 13:57, No significant change was found Confirmed by NAVNEET FERREIRA MD ([id number]) on 03/06/2023 10:38:39 AM Superior: NAVNEET FERREIRA MD * Event Display: ECG 12-Lead Authored Date: Please click on pdf link to open report * Event Display: ECG 12-Lead Authored Date: Ventricular Rate: 73 BPM Atrial Rate: 73 BPM P-R Interval: 162 ms QRS Duration: 82 ms Q-T Interval: 416 ms QTC Calculation(Bazett): 458 ms P [place]: 42 degrees R [place]: -48 degrees T [place]: 47 degrees Normal sinus rhythm Left axis deviation Possible Anterior infarct , age undetermined Abnormal ECG When compared with ECG of 28-FEB-2023 07:57, T wave inversion less evident in Lateral leads Confirmed by NAVNEET FERREIRA MD ([id number]) on 03/06/2023 7:36:36 AM Superior: LOTFI MD,AMIR * Event Display: ECG 12-Lead Authored Date: Please click on pdf link to open report * Event Display: ECG 12-Lead Authored Date: Ventricular Rate: 74 BPM Atrial Rate: 74 BPM P-R Interval: 156 ms QRS Duration: 90 ms Q-T Interval: 400 ms QTC Calculation(Bazett): 444 ms P [place]: 57 degrees R [place]: -31 degrees T [place]: 145 degrees Normal sinus rhythm Left axis deviation ST and T wave abnormality, consider lateral ischemia Abnormal ECG When compared with ECG of 19-DEC-2022 22:43, Inverted T waves have replaced nonspecific T wave abnormality in Lateral leads Confirmed by JAQUI TORRES MD ([id number]) on 03/01/2023 6:57:12 PM Superior: JAQUI TORRES MD [facility] * Event Display: Echocardiogram - Complete Authored Date: [id number] Transthoracic Echocardiography Report (TTE) Patient Demographics Patient Name ALEXY WATTS Date of Study 03/05/2023 Corporate Gender Female Facility Race Black Ethnicity Date of 1950 Height: 66.14 inches Age 72 year(s) Weight: 251.77 pounds Accession Number [id number] BSA: 2.21 m2 Room Number [id number] BMI: 40.46 kg/m2 Referring Physician Kerri Desouza NP Interpreting Physician Concha Morales MD Upfitter Rhonda Goldberg RCS Indications Pericardial effusion. Clinical History CABG x2 Hypertension. CKD Hyperlipidemia. Diabetes Mellitus. Study Data Type of Study TTE procedure:Echo Complete-Doppler, Colorflow, M-Mode. Study Date03/05/2023 Start Time: 02:11 PM Study Location: [facility] Adult Echo Study Status: Echo lab Patient Status: Routine Technical Quality: Inadequate due to surgical dressing. Blood Pressure:113/42 mmHg EKG: Normal sinus rhythm Allergies - NKDA. 2D Measurements LV Diastolic Dimension: 4.3 cm LV Systolic Dimension: 3.1 cm LV Septum Diastolic: 1.1 cm LV PW Diastolic: 1.2 cm AO Root Dimension: 2.9 cm LVOT: 2 cm Ascending Aorta:3.2 cm Doppler Measurements TR Velocity:171 cm/s TR Gradient:11.7 mmHg Cardiac Anatomy Left Ventricle/Interventricular Septum The left ventricle is poorly visualized. Systolic function is grossly preserved on limited views. Ejection fraction, wall motion and diastolic function could not be evaluated. Left Atrium/Interatrial Septum The left atrium is poorly visualized. Aortic Valve No significant regurgitation. Mitral Valve No significant regurgitation. Aorta The ascending aorta and aortic root are normal in size when indexed. Right Ventricle The right ventricle is poorly visualized. Right Atrium Not visualized. Pulmonic Valve No significant regurgitation. Tricuspid Valve Mild regurgitation. Pumonary Artery An accurate pulmonary artery pressure could not be obtained. Venous Structures Not visualized. Pericardium/Extracardiac A trace pericardial effusion cannot be excluded on limited views. Summary A trace pericardial effusion cannot be excluded on limited views. Signature * Event Display: Echocardiogram - Complete Authored Date: US.doppler Carotid arteries - bilateral * Event Display: VL Carotid Duplex Scan Bilat Authored Date: Status:Open Carotid Duplex Study Demographics Procedure Information Patient name: MAC TRACEY Procedure date: 02/28/2023 2:01 PM Corporate Proc. sub type: Cerebral: Carotid, Carotid Duplex Scan Bilateral. Gender: Female Accession No: [id number] Date of : 1950 Account No: [id number] Age: 72 year(s) Patient status: Routine Admit Status: Outpatient Procedure Staff Probe: L12-3 Ordering physician: Gabo Amato MD Technical quality: Adequate visualization Referring Physician: Gabo Amato MD Facility: [facility] Attending Physician: Michael Torrez MD Study location: [facility] Vascular Lab Admitting Physician: Michael Torrez MD Upfitter: Anny Issa [facility] Procedure consent obtained: No Interpreting physician: Grant Nelson MD Indications Pre-Op Evaluation and Coronary Atherosclerosis. Carotid Procedure Findings Right Left Location PSV (cm/s) EDV (cm/s) Plaque Characteristics PSV (cm/s) EDV (cm/s) Plaque Characteristics Prox CCA 105 10.3 82.8 16.1 Dist CCA 90 12.9 85.8 16.9 Bulb 68.6 9.43 82.8 13 Homogeneous Prox ICA 74.6 0 87.6 16.8 Mid ICA 86.6 13.7 84 15.6 Dist ICA 96.9 23.2 84 19.2 Prox ECA 90 0 102 0 Vertebral 91.7 0 52.9 0 Prox Subclavian 262 0 174 0 Right ICA/CCA ratio: 1.08 Right verterbral flow: Antegrade Left ICA/CCA ratio: 1.02 Left verterbralflow: Antegr Physician Conclusions Summary: Right Side: No stenosis seen in the Internal Carotid Artery. Antegrade flow in the Vertebral Artery. Multiphasic flow is seen in the Subclavian Artery. Left Side: 1-49% stenosis in the Internal Carotid Artery. Minimal plaque visualized. Antegrade flow in the Vertebral Artery. Multiphasic flow is seen in the Subclavian Artery, probably stenosis below 50% percent. * Event Display: VL Carotid Duplex Scan Bilat Authored Date: Hospital Progress note * Rimma Murray RN: PERFORM, SIGN, VERIFY Event Display: Progress Note Hospital Authored Date: Patient: ALEXY WATTS Age: 72 years Sex: Female : 1950 Associated Diagnoses: None Author: Rimma Murray RN Findings Narrative/Incidental Patient is s/p CABG 2, POD 6. Patient is AAOx4, NSR on monitor. One assist with walker. Patient plan to discharge to rehab today at 5 pm. Last bowel movement 03/07. . Discharge Information Functional Assessment Personal hygiene: assist. Feeding ability: self. Standing ability: with assist. Mobility assistance: ambulate, assist of 1. Chair transfer: with assist. Elimination: last bowel movement 03/07/2023 15:12:00, urinary elimination able to void in bathroom . Nutritional Assessment Appetite: good. Case Management Discharge Plan : Case Management Discharge Plan Data 03/08/2023 14:55 EDT Discharge Level of Care at Discharge [facility] facility Discharge Nursing Homes/Rehab Facilities [facility] Discharge Transportation Arranged [facility] [address] [facility] [id number] Discharge Arranged Transport Date/Time 03/08/2023 17:00 Mode of Transportation Arranged Chair [facility] Fourth Hand #1 intake/allscripts Service Categories #1 Occupational Therapy, Physical Therapy, [facility] Service Comments #1 You are being discharged to [facility] for continued skilled care and skilled rehab as discussed. Name of Person Notified of Transfer patient Cardiac Rehab Discharge : Cardiac Rehab 03/05/2023 8:35 EDT [facility] Yes Where will pt be attending II [facility] [address] [facility] [phone] Rehabilitation Discharge : Rehab Discharge Index 03/07/2023 7:30 EDT Comments on treatment indicated 72F with CP and SOB underwent cardiac cath and is presenting for CABG. PT indicated to improve strength, endurance, bed mob, transfers, gait, and assess stairs. Walker: distance 10-20 Distance pt will ambulate 35 Full chart review completed Yes Hospital course Hospital course Other findings Pt received in supine. 3L O2, OK to wean. Pt weaned to RA at 98- 100%. Sup-sit with Min A and VC for UE assist. Good sitting balance and tolerance. Sit-stand multiple trials with Min A.1st 2 trials with low standing tolerance 2/2 LE fatigue up to 12 sec.. 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 She is now POD #6 CABG x2. BIDS following to assist with glycemic control. 24 hours BG review: 202-231 mg/dL with fasting glucose this morning 158 mg/dL. Recommendations: --Continue Lantus 40 units --Continue lispro 6 units 3 times daily with meals, hold if n.p.o. --Continue lispro correctional sliding scale of 2 units per 150 mg/dL increasing by 2 units per 50 mg/dL, 3 times daily with meals, still give n.p.o. --On discharge patient will go home on final insulin dosing. BIDS will continue to follow. * Mehrdad Ivy: VERIFY, PERFORM, SIGN Event Display: Progress Note Hospital Authored Date: [id number] Patient: ALEXY WATTS Age: 72 years Sex: Female : 1950 Associated Diagnoses: None Author: Mehrdad Ivy POD 5 CABG x 2 (GRIMM-LAD, SVG-PVA) EF 55-65% Overnight Events & Current Issues Chest tubes removed Cr 1.9 from baseline 1.5-1.7, suspect volume overload 6kg above dry weight Hyponatremic (130) and hyperkalemic (5.1) Increased Lasix to 60mg PO BID Needs ambulation, ordered PT to assist Physical Examination Exam Neurological: alert, nonfocal. Pulmonary/Lungs: clear, decreased, bases both. Cardiovascular: S1, S2, NSR, no M/R/G. Gastrointestinal: Abdomen (soft, non-tender, non-distended, bowel sounds present), Diet by mouth. Extremities: Pulses palpable, Edema (both, 1 +, pitting). Surgical Wounds: Chest (dry and intact, Prevena), Extremities (dry and intact, no signs of infection). Urinary Catheter: I have assessed the need for and the patient continues to require an indwelling catheter. Results Review Today's Results Weight Dry weight 114 Daily weight past 3 days : Weight 03/07/2023 3:40 EDT Weight 120.3 kg 03/06/2023 6:25 EDT Weight 123.8 kg 03/05/2023 1:17 EDT Weight 119.7 kg 03/04/2023 7:42 EDT Weight 120.2 kg LABORATORY 03/07/2023 1:00 EDT Sodium 130 mmol/L L Potassium 5.1 mmol/L Chloride 97 mmol/L L Bicarbonate Level 25 mmol/L Anion Gap 8 BUN 49 mg/dL H Creatinine-Blood 1.9 mg/dL H Estimated GFR Creatinine 29 ML/MIN/1.73 M2 Magnesium 2.5 mg/dL H 03/07/2023 0:58 EDT WBC 8.7 k/mm3 RBC 2.63 m/mm3 L Hgb 7.7 Gm/dL L Hct 24.0 % L MCV 91.3 femtoliters MCH 29.3 pg MCHC 32.1 g/dL L Platelet Count 177 k/mm3 RDW-SD 50.0 femtoliters H MPV 12.2 femtoliters Nucleated RBC (Automated) 0.6 #/100 WBC'S Abs. NRBC 0.1 k/mm3 CICU Vital Signs 03/07/2023 7:27 EDT Temperature 98.0 DegF Temperature Route Oral Respiratory Rate 18 br/min Mode of Delivery (Oxygen) Nasal cannula Liters per Minute 3 L/min Oxygen Saturation 100 % Systolic Blood Pressure 124 mm Hg Mean Arterial Pressure 68 mm Hg Diastolic Blood Pressure 40 mm Hg L Pulse Pressure 84 mm Hg Impression and Plan PMHx: This is a 72 year old female w/ a hx of HTN, cholecystitis (treated conservatively with abx),CKD, DM-retinopathy, GERD, venous insufficiency s/p RLE vein stripping, HLD, DJD, depression, Bunions s/p bunion surgery, and cataracts s/p surgery who presented originally with unstable angina and SOB. Eventually, an elective cardiac catheterization was obtained which revealed severe distal stenosis at the left main and RCA bifurcation as well as FAMILY DEVELOPMENT SPECIALIST mid-circumflex. Dr Ayon performed a CABGx2 on 03/02/23. Surgeon: Dr. Ayon Cardiolgost: Dr. Torrez POD 5 CABG x 2 (GRIMM-LAD, SVG-PVA) EF 55-65% Plan by systems: Neuro Post-operative Pain Cataracts DM-retinopathy Depression scheduled Tylenol, prn narcotics for severe pain multimodal analgesia pt is VERY sensitive to opioids PT evaluated patient, recommended rehab Cardiovascular s/p CABG x 2 (GRIMM-LAD, SVG-PVA) Hypotension secondary to vasoplegia RESOLVED HX of HTN and HLD Amlodipine 5 mg qd- stopped due to hypotension Carvedilol 12.5 mg BID- decreased to 6.25 mg po bid due to hypotension Asa 81 mg qd Plavix 75 mg qd x 12 months Echo 03/05 with poor views, LV function grossly preserved Pulmonary Acute respiratory insufficiency, postoperative OOB to chair Aggressive pulm toileting 2LNC Keep spo2 > 92% GI Cholecystitis (resolved) Diet: Cardiac ppi resumed home dose Renal CKD Hyponatremia Hyperkalemia Baseline Creatinine: 1.5-1.7 Creatinine up to 2, suspect volume overload and vascular congestion Lasix increased to 60mg PO BID Strict i&o Replete lytes per protocol Home HCTZ and Spironolactone held Hyponatremia and hyperkalemia likely secondary to hypervolemia, monitor Heme Acute Blood loss anemia Watch for bleeding No blood products required intraoperatively ID keanu-operative antibiotics completed trend wbc, fever curve Endo stress induced hyperglycemia DMII A1C 7.5 Post op Cardiac Surgery Protocol BIDS consulted and adjusting insulin as appropriate Dispo:??M6, requires ambulation and strengthening, begin arrangements for rehab Patient seen with and plan reviewed with Dr Nieto Deprteenated Cardiac rehabilitation treatment plan Progress note and attainment of goals (narrative) * Timmy SCHROEDER, Ria Loya: PERFORM, SIGN, VERIFY Event Display: Cardiac Rehab Note Authored Date: Patient: ALEXY WATTS Age: 72 years Sex: Female : 1950 Associated Diagnoses: None Author: Ria Warner RN Pre-exercise Vitals Vital Signs Comment: Reviewed in CIS. Pre-exercise Physical Examination Neurologic: alert & oriented. Activity Symptoms with Cardiac Rehab Symptoms: No exertional symptoms. Activity Transfers: independent. Ambulate: independent, assistive device, distance ambulated 3 feet, declines ambulation, but able to independently get OOB to chair., Staff states patient refusing to ambulate. Patient wants purwick,does not want to get up to bathroom. Will reassess tomorrow. Assistive Devices Assistive Device: Wheeled walker. Patient Education Education: Patient alone, Cardiac surgery booklet reviewed. Education topic Teachback comprehension 50% Topic: Role of exercise, Post operative recovery guidelines. Reinforcement needed: Home activity guidelines/limits. Recommendation and Plan Patient may benefit from: short term rehab. Outpatient follow up recommended: [facility]. Cardiac Rehab: Daily. Recommendation comment: RN notified of plan. * Ria Warner RN: PERFORM, SIGN, VERIFY Event Display: Cardiac Rehab Note Authored Date: Patient: ALEXY WATTS Age: 72 years Sex: Female : 1950 Associated Diagnoses: None Author: Ria Warenr RN Recommendation and Plan Cardiac Rehab: Attended CV surgery rounds. See CV surgery note for plan of care.. * Denise Miller: PERFORM, SIGN, VERIFY Event Display: Cardiac Rehab Note Authored Date: Patient: ALEXY WATTS Age: 72 years Sex: Female : 1950 Associated Diagnoses: None Author: Denise Miller Pre-exercise Vitals Vital Signs: 64 HR, 148/78 BP Supine, 99% RA SaO2. Vital Signs Comment: Reviewed in CIS. Pre-exercise Physical Examination Neurologic: alert & oriented. Cardiovascular: heart rate regular. Activity Symptoms with Cardiac Rehab Symptoms: Fatigue. Activity Activity tolerance: Change in activity tolerance increased. Transfers: assist x 1 , assistive device. Ambulate: assistive device, distance ambulated 30 feet, from bathroom to bed, then chair to bathroom. Getting stronger each day.. Assistive Devices Assistive Device: Wheeled walker. Incentive Spirometry Incentive Spirometry: Proper technique reinforced, continued support when using the IS. Compliance problems: Compliance problems: diet, exercise. . Post-exercise Vitals Vital Signs: 65 HR, 100% RA SaO2. Vital Signs Comment: Reviewed in CIS. Post-exercise Physical Examination Neurologic: alert & oriented. Patient Education Education: Patient alone, Cardiac surgery booklet reviewed, Importance of Cardiac Rehab, patients goal is to get back going to [facility]ze.. Education topic Teachback comprehension 100% Topic: Medication education, Role of exercise, Home activity guidelines/limits, Post operative recovery guidelines, Weight management. Reinforcement needed: Medication education, Role of exercise, Home activity guidelines/limits, Postoperative recovery guidelines, Weight management. Recommendation and Plan Ambulate: 4 times/day, with assist of 1 , with assistive device. Encourage: Incentive spirometer, ADLs, AROM, All education with family present. Patient may benefit from: Incentive spirometer, ADLs, AROM, short term rehab, also working with PT. Outpatient follow up recommended: [facility], in 6 weeks, 04/12/2023 AT 10:30A.M, patient going to [facility] then will come to [facility] after that. Her agrees to the plan and will bring her. If they need to move her appoitment back they will call us. Phone number provided. Cardiac Rehab: Daily, Will see on 03/08/2023 . Recommendation comment: RN notified of plan. Portable XR Chest Views * RAYMONDSPowerscribe , CIS S: TRANSCRIBE Richard Green MD: VERIFY Event Display: Result: Authored Date: [id number] Chest Portable Reason: S P Cardiac Surgery; Clinical Question(s): Pleural Effusion COMPARISON: 03/03/2023 FINDINGS: LINES AND TUBES: Vascular sheath in expected position. Left base catheter not well seen. Right- sided chest tube appears similar in position. LUNGS AND PLEURA: Clear lungs. Normal pulmonary vascularity. No pleural effusion. No pneumothorax. HEART, MEDIASTINUM AND LARISSA: Heart is normal in size. Normal mediastinal and hilar contour. BONES AND SOFT TISSUES: Sternotomy sutures noted. IMPRESSION: Limited exam. No significant interval change. WSN: [id number] Ordering Physician: Dona Amor Dictated By: Richard Green MD Dictated Date/Time: 03/04/23 9:34 am Reviewed By: Richard Green MD Signed By: Richard Green MD Signed Date/Time: 03/04/23 9:34 am Transcribed By: SADIQ Transcribed Date/Time: 03/04/23 9:33 am * TAYEowerLAUREN kendall S: TRANSCRIBE Micheal Santiago MD: VERIFY Event Display: Result: Authored Date: [id number] Chest Portable Reason: S P Cardiac Surgery; Clinical Question(s): Other:; Cardiac Tamponade; Special Instructions:Post Op Day 1 COMPARISON: 03/02/2023 FINDINGS: LINES AND TUBES: The patient has been extubated. Enteric tube has been removed. Stable positioning of right internaljugular Baltimore-Jimi catheter. Bibasilar chest tubes unchanged . External lead wires overlie the chest. LUNGS AND PLEURA: Low lung volumes with mild basilar atelectasis. Lungs are otherwise clear with no consolidation. No definite pleural effsion. Small effusion may not be apparent on semiupright exam. No pneumothorax. HEART, MEDIASTINUM AND LARISSA: Status post median sternotomy and cardiac surgery. Moderate prominence of the cardiac silhouette, unchanged. Normal mediastinal and hilar contour. BONES AND SOFT TISSUES: No acute abnormality. IMPRESSION: Status post median sternotomy and cardiac surgery. Lines and tubes are adequately placed. Low lung volumes and bibasilar atelectasis. Semiupright positioning limiting evaluation for effusion. No definite effusion identified. WSN: [id number] Ordering Physician: Richard Deleon Dictated By: Micheal Santiago MD Dictated Date/Time: 03/03/23 4:34 pm Reviewed By: Micheal Santiago MD Signed By: Micheal Santiago MD Signed Date/Time: 03/03/23 4:34 pm Transcribed By: SADIQ Transcribed Date/Time: 03/03/23 4:32 pm * BHSPowerscribe , CIS S: TRANSCRIBE Shauna Mcghee MD: SIGN Kadeem AVILES, Miguel V: VERIFY Event Display: Result: Authored Date: [id number] Chest Portable Reason: S P CAGB 03/02; Clinical Question(s): Cardiac Tamponade COMPARISON: Multiple priors, most recent chest x-ray 02/28/2023, CT chest 12/21/2022 FINDINGS: LINES AND TUBES: Endotracheal tube terminates approximately 2.3 cm above the radha. Baltimore-Jimi catheter terminates in the region of the right ventricular outflow tract. Left basilar chest tube and mediastinal drain. Enteric tube courses along the esophagus with side hole terminating in the region of the gastric pouch. LUNGS AND PLEURA: Low lung volumes with mild basilar atelectasis. Lungs are otherwise clear with no consolidation. Mild blunting of the bilateral costophrenic angles, which could represent trace bilateral pleural effusions. No pneumothorax. HEART, MEDIASTINUM AND LARISSA: Heart is normal in size. Normal mediastinal and hilar contour. BONES AND SOFT TISSUES: No acute abnormality. Status post CABG. Poorly visualized gastric band. IMPRESSION: Low lung volumes. Possible trace bilateral pleural effusions. Otherwise no acute abnormality status post CABG. Lines and tubes as above. I have personally reviewed the images and I agree with this report. WSN: [id number] Ordering Physician: Richard Deleon Dictated By: Shauna Mcghee MD Dictated Date/Time: 03/02/23 2:50 pm Reviewed By: Miguel Quan MD, V Signed By: Miguel Quan MD, V Signed Date/Time: 03/02/23 2:55 pm Transcribed By: SADIQ Transcribed Date/Time: 03/02/23 2:30 pm Patient Care team information Care Team Personnel Name: Anuradha Flores RN Position: S RN Member Role: Primary Care Nurse Name: Diana Romano MD Position: [facility] Physician (General Medicine) Member Role: PCP Address: Address: [address] [place] [id number] Name: Ruben Jensen RN Position: S RN Member Role: Primary Care Nurse Name: Katty Garcia RN Position: S RN Member Role: Primary Care Nurse Name: Slick Martino RN Position: S RN Member Role: Primary Care Nurse Name: Sudha Kee RN Position: S RN Member Role: Primary Care Nurse Name: Tita Sims RN Position: S RN Member Role: Primary Care Nurse Care Team Related Persons Name: LEO COCHRAN Address: [place] [address] Name: CRYSTAL JOHNSON Address: home [address] [address]
--- OUTSIDE RECORDS SUMMARY | 2024-04-25 10:15 | XMS_ITS | Continuity of Care Document ---
Author Organization [facility] Cardiac Adia cassie Address [address] [place] [id number]- Care Team Providers Care It Program Auditor Name Role Phone Rosalina AVILES, Diana Worley Primary Care Physician [phone] Encounter [facility] Date(s): 03/09/23 - 04/08/23 [facility] Cardiac Surgery [address] [place] [id number] Allergies, Adverse Reactions, Alerts No Known Allergies Immunizations Given and Recorded Vaccine Date Status Refusal Reason influenza virus vaccine, inactivated 06/23/22 Anthony rded influenza virus vaccine, inactivated 07/15/21 Anthony rded influenza virus vaccine, inactivated 08/18/20 Anthony rded influenza virus vaccine, inactivated 08/05/20 Anthony rded influenza virus vaccine, inactivated 09/28/18 Give n influenza virus vaccine, inactivated 09/24/15 Anthony rded SARS-CoV-2 mRNA ([id number]) vax 06/23/22 Recorded SARS-CoV-2 (COVID-19) mRNA BNT-162b2 [...] Status Never smoker entered on: 09/14/15 Sex Patient Care team information Care Team Personnel Name: Anuradha Flores RN Position: [facility] RN Member Role: Primary Care Nurse Name: Diana Romano MD Position: [facility] Physician (General Medicine) Member Role: PCP Address: Address: [address] [place] [id number] Name: Ruben Jensen RN Position: S RN Member Role: Primary Care Nurse Name: Katty Garcia RN Position: [facility] RN Member Role: Primary Care Nurse Name: Slick Martino RN Position: [facility] RN Member Role: Primary Care Nurse Name: Sudha Kee RN Position: [facility] RN Member Role: Primary Care Nurse Name: Tita Sims RN Position: [facility] RN Member Role: Primary Care Nurse Care Team Related Persons Name: NBA COCHRANJOVANJULIA Address: [place] [address] Name: AMILCAR JOHNSON Address: home [address] [address]
--- OUTSIDE RECORDS SUMMARY | 2024-04-25 10:15 | XMS_ITS | Continuity of Care Document ---
Author Organization [facility] Card[facility] Adia cassie Address [address] [place] [address]- Care Team Providers Care Landscape Specialist Name Role Phone Rosalina AVILES, Diana Worley Primary Care Physician Encounter [facility] Date(s): 03/21/23 - 04/20/23 [facility] Cardiac Surgery [address] [place] [id number] Attending Physician: Admtr, Ar8 Admitting Physician: Admtr, Ar8 Referring Physician: Admtr, Ar8 Allergies, Adverse Reactions, Alerts No Known Allergies Immunizations Given and Recorded Vaccine Date Status Refusal Reason influenza virus vaccine, inactivated 06/23/22 Anthony rded influenza virus vaccine, inactivated 07/15/21 Anthony rded influenza virus vaccine, inactivated 08/18/20 Anthony rded influenza virus vaccine, inactivated 08/05/20 Anthony rded influenza virus vaccine, inactivated 09/28/18 Give n influenza virus vaccine, inactivated 09/24/15 Anthony rded SARS-CoV-2 mRNA ([id number]) vax 06/23/22 Recorded SARS-CoV-2 (COVID-19) mRNA BNT-162b2 [...] Care Nurse Name: Diana Romano MD Position: S Physician - Primary Care Member Role: PCP Address: Address: [address] [place] [id number] Name: Ruben Jensen RN Position: S RN Member Role: Primary Care Nurse Name: Katty Garcia RN Position: S RN Member Role: Primary Care Nurse Name: Slick Martino RN Position: S RN Member Role: Primary Care Nurse Name: Sudha Kee RN Position: S RN Member Role: Primary Care Nurse Name: Tita Sims RN Position: [facility] RN Member Role: Primary Care Nurse Care Team Related Persons Name: LEO COCHRAN Address: [place] [address] Name: AMILCAR JOHNSON Address: home [address] [place] [id number]
--- OUTSIDE RECORDS SUMMARY | 2024-04-25 10:16 | XMS_ITS | Continuity of Care Document ---
Author Organization [facility] Address [address] [place] [address]- Care Team Providers Care Customer Support Representative Name Role Phone Rosalina AVILES, Diana Worley Primary Care Physician [phone] Encounter [facility] Date(s): 06/16/22 - 07/16/22 [facility] [address] [place] [address]- Attending Physician: Jose Angel Park Admitting Physician: Jose Angel Park Referring Physician: AdmJose Angel goyal Allergies, Adverse Reactions, Alerts No Known Allergies Immunizations Given and Recorded Vaccine Date Status Refusal Reason influenza virus vaccine, inactivated 09/28/18 Give n Not Given Vaccine Date Status Refusal Reason pneumococcal 13-valent vaccine 09/28/18 Not Given Patient Refuses Medications acetaminophen 325 mg oral tablet 650 mg, By Mouth, Every 6 hours, PRN, Temperature Greater than 100.5, Refills 0, Maintenance, Headache Pain , Mild, 04/02/16 14:32:38 Start Date: 04/02/16 Status: Ordered Amlodipine 5 mg, By Mouth, Daily, Maintenance, 09/15/15 9:40:51 Start Date: 09/15/15 Status: Ordered aspirin 81 mg oral tablet 1 tablet = 81 mg, By Mouth, Daily, 0 Refills, Maintenance, 06/17/10 14:05:19 Start Date: 06/17/10 Status: Ordered Humalog 100 u/ml subcutaneous injection See Instructions, 3 times a day before meals, Subcutaneous Infusion/sliding scale 6-20units, 0 Refills, Maintenance, 12/02/15 11:10:42 Start Date: 12/02/15 Status: Ordered Hydrochlorothiazide = 25 mg, By Mouth, 0 Refills, Maintenance, 09/15/15 9:41:17 Start Date: 09/15/15 Status: Ordered insulin glargine 100 u/ml subcutaneous solution = 72 units, Subcutaneous Injection, Daily at bedtime, 0 Refills, Maintenance, 09/29/18 11:38:12 EST, Injection Start Date: 09/29/18 Status: Ordered losartan 100 mg oral tablet 1 tablet = 100 mg, By Mouth, Daily, 0 Refills, Maintenance, 09/15/15 9:45:27 Start Date: 09/15/15 Status: Ordered methenamine hippurate 1 gm oral tablet 1 tablet = 1 Gm, By Mouth, 2 times a day, 0 Refills, Maintenance, 01/12/16 13:14:06 Start Date: 01/12/16 Status: Ordered Multivitamin By Mouth, 2 times a day, 0 Refills, Maintenance, 09/15/15 9:44:56 Start Date: 09/15/15 Status: Ordered Nexium 40 mg oral enteric coated capsule 1 capsule = 40 mg, By Mouth, Daily, 0 Refills, Maintenance, 12/02/15 11:11:13 Start Date: 12/02/15 Status: Ordered simvastatin 20 mg oral tablet 1 tablet = 20 mg, By Mouth, Daily at bedtime, 0 Refills, Maintenance, 09/15/15 9:42:09 Start Date: 09/15/15 Status: Ordered Vitamin D3 1000 intl units oral capsule 1 capsule = 1,000 International_Units, By Mouth, 0 Refills, Maintenance, 09/15/15 9:42:37 Start Date: 09/15/15 Status: Ordered Problem List Condition Effective Dates Status Health Status Inform ant Atypical chest pain(Confirmed) Active Neuropathy(Confirmed) Active Retinopathy(Confirmed) Active Social History Social History Type Response Smoking Status Never smoker entered on: 09/14/15 Sex Care Team Personnel Name: Rosalina AVILES, Diana Worley Address: [address] [place] [address]
--- OUTSIDE RECORDS SUMMARY | 2024-04-25 10:16 | XMS_ITS | Continuity of Care Document ---
Author Organization [facility] Adia cassie Address [address] [place] [address]- Care Team Providers Care Senior Sales Director Name Role Phone Rosalina AVILES, Diana D Primary Care Physician Encounter [facility] Date(s): 03/21/23 - 03/28/23 [facility] [address] [place] [id number] Attending Physician: Lm Ayon MD Referring Physician: Michael Torrez MD Allergies, Adverse Reactions, Alerts No Known Allergies Immunizations Given and Recorded Vaccine Date Status Refusal Reason influenza virus vaccine, inactivated 06/23/22 Anthony rded influenza virus vaccine, inactivated 07/15/21 Anthony rded influenza virus vaccine, inactivated 08/18/20 Anthony rded influenza virus vaccine, inactivated 08/05/20 Anthony rded influenza virus vaccine, inactivated 09/28/18 Give n influenza virus vaccine, inactivated 09/24/15 Anthony rded SARS-CoV-2 mRNA ([id number]) vax 06/23/22 Recorded SARS-CoV-2 (COVID-19) mRNA BNT-162b2 [...] Retinopathy Confirmed Active Severe obesity Confirmed Active Vital Signs Most recent to oldest [Reference Range]: 1 Height 168 cm (03/21/23 12:08 PM) Weight 117.2 kg (03/21/23 12:08 PM) Oxygen Saturation [94-100 %] 97 % (03/21/23 12:08 PM) Pulse Rate [55-90 bpm] 73 bpm (03/21/23 12:08 PM) Body Mass Index [18.5-24.99 kg/m2] 41.52 kg/m2 *>HHI* (03/21/23 12:08 PM) Blood Pressure [90-138/55-84 mm Hg] 116/ 74mm Hg (03/21/23 12:08 PM) Respiratory Rate [16-30 br/min] 18 br/mi n (03/21/23 12:08 PM) Mode of Delivery (Oxygen) Room air (03/21/23 12:08 PM) Blood pressure sites Arm, right (03/21/23 12:08 PM) Weight Obtained Via Patient/family state d (03/21/23 12:08 PM) Social History Social History Type Response Smoking Status Never smoker entered on: 09/14/15 Sex Note * Event Display: [facility] Office Note Authored Date: [id number] OFFICE NOTE DATE: 03/21/2023 REASON FOR VISIT: Postoperative check. HISTORY OF PRESENT ILLNESS: The patient is a 72-year-old female who underwent a CABG x2 on 03/02/2023. She did very well postoperatively and was discharged to a rehab facility on postop day #6 where she stayed for about 4 days and then went home. Since she has been at home, she denies any fevers, chills or significant pain. She still has some mild dyspnea on exertion, but this seems to be improvin g. She is well below her preoperative weight at this point. PHYSICAL EXAMINATION: GENERAL APPEARANCE: Obese -Namib[place] female, sitting in the chair, in no distress. VITAL SIGNS: Heart rate is 73 beats per minute, blood pressure of 116/74 mmHg, respirations 18, oxygen saturation 97%. CARDIAC: Regular rate and rhythm. No murmurs. LUNGS: Clear to auscultation. CHEST: Sternotomy incision is clean, dry and intact. Sternum is stable. EXTREMITIES: No clubbing or cyanosis. Trace edema. Left leg incision is healing well. NEUROLOGIC: Grossly nonfocal. ASSESSMENT AND PLAN: This is a 72-year-old female who is about 2-1/2 weeks out from her CABG x2, who is doing very well. At this point, I think she can stop her Lasix and her amiodarone. I did adviseher to keep a dry gauze underneath the breast area near her sternotomy incision to prevent this from getting macerated and she tells me she has been doing this. She will be starting her cardiac rehab soon. She does not need to come to see me here in Cardiac Surgery office anymore but will, of course, continue to see Dr. Michael Torrez and Dr. Diana Romano. Dictated by: Lm Ayon MD Signing Clinician: Lm Ayon MD Dictated: 03/21/2023 12:30:06 Transcribed: 11:01:18 AM Transcribed by: CLARITZA DocID: [id number] PRELIMINARY REPORT UNLESS MANUALLY/ELECTRONICALLY SIGNED cc: Diana Romano M.D. [address], [address] [place], [address] Patient Care team information Care Team Personnel Name: Anuradha Flores RN Position: S RN Member Role: Primary Care Nurse Name: Diana Romano MD Position: [facility] Physician (General Medicine) Member Role: PCP Address: Address: [address] [place] [id number] Name: Ruben Jensen RN [...] Nurse Care Team Related Persons Name: NBA COCHRANNAOMI Address: [place] [address] Name: ELIZABETH AMILCAR Address: home [address] [place] [id number]
--- OUTSIDE RECORDS SUMMARY | 2024-04-25 10:16 | XMS_ITS | Continuity of Care Document ---
Author Organization [facility] Address [address] [place] [address] [address] [place] [address]- Care Team Providers Care Public Health Nurse Name Role Phone Rosalina AVILES, Diana Worley Primary Care Physician Encounter [facility] Date(s): 02/08/23 - 03/10/[address] [place], [place] [address] Attending Physician: Admtr, Jose Angel Admitting Physician: Admtr, Ar8 Referring Physician: Admtr, [...] vaccine, inactivated 09/24/15 Anthony rded SARS-CoV-2 mRNA ([id number]-[id number]-[id number]) vax 06/23/22 Recorded SARS-CoV-2 (COVID-19) mRNA BNT-162b2 [...] Care Nurse Name: Diana Romano MD Position: [facility] Physician (General Medicine) Member Role: PCP Address: Address: [address] [place] [id number] Name: Ruben Jensen RN Position: [...] Persons Name: LEO COCHRAN Address: [place] [address] Name: AMILCAR JOHNSON Address: home [address] [place] [id number]
--- OUTSIDE RECORDS SUMMARY | 2024-04-25 10:16 | XMS_ITS | Continuity of Care Document ---
Author Organization [facility] Address [address] [place] [address]- Care Team Providers Care Vacuum Applicator Operator Name Role Phone Rosalina AVILES, Diana Worley Primary Care Physician [phone] [place] [facility] [place] 06[place]16[place]22 - 06/23/22 [facility] [address] [place] [address]- Encounter Diagnosis Viral URI(Discharge Diagnosis) - 06/16/22 Attending Physician: London Irving DO Referring Physician: Diana Romano MD Allergies, Adverse Reactions, Alerts No Known [...] chest pain(Confirmed) Active Neuropathy(Confirmed) Active Retinopathy(Confirmed) Active Diagnosis Diagnosis Type Effective Dates Health Status [facility] Informant Viral URI Discharge Diagnosis 06/16/22 Vital Signs Most recent to oldest [Reference Range]: 1 Height 168 cm (06/16/22 10:41 AM) Oxygen Saturation [94-100 %] 100 % (06/16/22 10:41 AM) Pulse Rate [55-90 bpm] 79 bpm (06/16/22 10:41 AM) Blood Pressure [90-138/55-84 mm Hg] 198/ 83mm Hg *H* (06/16/22 10:41 AM) Temperature [96.8-100.4 DegF] 98.1 DegF (06/16/22 10:41 AM) Mode of Delivery (Oxygen) Room air (06/16/22 10:41 AM) Blood pressure sites Arm, right (06/16/22 10:41 AM) Temperature Route Temporal (06/16/22 10:41 AM) Social History Social History Type Response Smoking Status Never smoker entered on: 09/14/15 Sex
--- OUTSIDE RECORDS SUMMARY | 2024-04-25 10:16 | XMS_ITS | Continuity of Care Document ---
Author Organization [facility] Address [address] [place] [address]- Care Team Providers Care Powerhouse Helper Name Role Phone Rosalina AVILES, Diana D Primary Care Physician [phone] Encounter [facility] Date(s): 12/29/19 - 12/29/[address] [address] [facility] Attending Physician: Winter Zaman MD Allergies, Adverse Reactions, Alerts Substance Reaction Severity Status NKA Active Immunizations Given and Recorded Vaccine Date Status [...]
--- OUTSIDE RECORDS SUMMARY | 2024-04-25 10:16 | XMS_ITS | Continuity of Care Document ---
Author Organization [facility] ter Address [address] [place] [id number] Care Team Providers Care Customer Service Advisor Name Role Phone Rosalina AVILES, Diana Worley Primary Care Physician [phone] Encounter [facility] – [place] Date(s): 11/15/23 - 11/24/[address] [address]- Encounter Diagnosis Heart failure(Final) - 11/15/23 Pulmonary edema(Final) - 11/15/23 Hypertensive urgency(Final) - 11/15/23 Discharge Disposition: A-Transfer VNA/Home Health Attending Physician: Micheal Sheppard MD Admitting Physician: Eulogio Greenberg MD Referring Physician: Not on Staff, Referring MD Allergies, Adverse Reactions, Alerts No Known Allergies Immunizations Given and Recorded Vaccine Date Status Refusal Reason influenza virus vaccine, inactivated 06/23/22 Anthony rded influenza virus vaccine, inactivated 07/15/21 Anthony rded influenza virus vaccine, inactivated 08/18/20 Anthony rded influenza virus vaccine, inactivated 08/05/20 Anthony rded influenza virus vaccine, inactivated 09/28/18 Give n influenza virus vaccine, inactivated 09/24/15 Anthony rded SARS-CoV-2 mRNA ([id number]) vax 06/23/22 Recorded SARS-CoV-2 (COVID-19) mRNA BNT-162b2 [...] OF BREATH Start Date: 12/20/22 Status: Ordered aspirin 81 mg oral tablet [...] opioid drug. Start Date: 03/08/23 Status: Ordered basic metabolic panel basic metabolic panel, See Instructions, # 1 each, Refills 0, Tot. Refills 0, Maintenance, BMP to be done once between 11/26/23-11/30/23. ICD 10: N17 Please send results to Dr. Diana Romano, 11/24/2414:24:00 EST, Supply Start Date: 11/24/23 Status: Ordered bisacodyl 10 mg rectal suppository [...] drug. Start Date: 03/08/23 Status: Ordered Coreg 12.5 mg oral tablet 12.5 mg, Tablet, By Mouth, Hold for: HR < 50, 11/24/23 9:00:00 EST Start Date: 11/24/23 Stop Date: 11/24/23 Status: Completed Coreg 12.5 mg oral tablet 12.5 mg, By Mouth, 2 times a day, # 60 tablet, Refills 0, Tot. Refills 0, Maintenance, 11/24/23 15:11:00 EST, Route to Pharmacy Electronically, [facility], Partial fill upon patient request if the prescription is for a schedule II opioid... Start Date: 11/24/23 Status: Ordered Docusate/Senna Tablet 2 tablet, By Mouth, Daily, 0 Refills, Maintenance, 03/08/23 15:15:00 EDT, Tablet, Partial fill uponpatient request if the prescription is for a schedule II opioid drug. Start Date: 03/08/23 Status: Ordered ferrous sulfate 325 mg oral enteric coated tablet 325 mg, By Mouth, Every Sunday, Sunday and Sunday, may take with food to minimize abdominal discomfort, # 15 tablet, Refills 0, Tot. Refills 0, Maintenance, 11/24/23 15:13:00 EST, Route to Pharmacy Electronically, [facility], Partial... Start Date: 11/24/23 Status: Ordered furosemide 40 mg oral tablet 40 mg, By Mouth, 2 times a day, # 60 tablet, Refills 0, Tot. Refills 0, Maintenance, 11/24/23 15:11:00 EST, Route to Pharmacy Electronically, [facility], Partial fill upon patient request if the prescription is for a schedule II opioid d... Start Date: 11/24/23 Status: Ordered hydrALAZINE 25 mg oral tablet 50 mg, Tablet, By Mouth, 11/24/23 9:00:00 EST Start Date: 11/24/23 Stop Date: 11/24/23 Status: Completed hydrALAZINE 25 mg oral tablet 50 mg, Tablet, By Mouth, 11/24/23 15:00:00 EST Start Date: 11/24/23 Stop Date: 11/24/23 Status: Completed hydrALAZINE 50 mg oral tablet 1 tablet = 50 mg, By Mouth, 3 times a day, # 90 tablet, 0 Refills, Maintenance, 11/24/23 15:15:00 EST, Tablet, [facility], Partial fill upon patient request if the prescription is for aschedule II opioid drug., 165, cm, 11/24/23 13:39:0... Start Date: 11/24/23 Status: Ordered insulin lispro 100 u/ml subcutaneous [...] 400 <... Start Date: 03/08/23 Status: Ordered Lantus Inj [...] Date: 03/08/23 Status: Ordered Multivitamin By Mouth, Daily, 0 Refills, Maintenance, 09/15/15 9:44:56 EDT Start Date: 09/15/15 Status: Ordered NIFEdipine 60 mg oral tablet, extended release 60 mg, ER Tablet, By Mouth, 11/24/23 9:00:00 EST Start Date: 11/24/23 Stop Date: 11/24/23 Status: Completed NIFEdipine 60 mg oral tablet, extended release 60 mg, By Mouth, Daily, # 30 tablet, Refills 0, Tot. Refills 0, Maintenance, 11/24/23 15:13:00 EST,Route to Pharmacy Electronically, [facility], Partial fill upon patient request if the prescription is for a schedule II opioid drug., 16... Start Date: 11/24/23 Status: Ordered pantoprazole 40 mg oral delayed release tablet 1 tablet = 40 mg, By Mouth, Daily, # 30 tablet, 0 Refills, Maintenance, 12/20/22 2:40:00 EST, EC Tablet Start Date: 12/20/22 Status: Ordered Potassium Chloride (Fcw-Iswm-Etq 10) 10 mEq oral tablet, extended release TAKE 1 TABLET BY MOUTH DAILY Start Date: 11/24/23 Status: Ordered Vashe Topical Solution 475 mL, Topically, Every 12 hours, 0 Refills, Maintenance, Solution Start Date: 03/08/23 Status: Ordered Vitamin D3 1000 intl units oral capsule 1 capsule = 1,000 International_Units, By Mouth, Daily, 0 Refills, Maintenance, 09/15/15 9:42:37 EDT Start Date: 09/15/15 Status: Ordered Problem List Condition Confirmation Course Effective Dates Status Health Status Informant Atypical chest pain Confirmed Active GERD (gastroesophageal reflux disease) Confirmed Active Hypercholesterolemia Confirmed Active HTN (hypertension) Confirmed Active 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 Right kidney: 11.5 cm in length. No hydronephrosis. Normal parenchymal thickness and echotexture. No stones. No suspicious mass. Left kidney: 12.8 cm in length. No hydronephrosis. Normal parenchymal thickness and echotexture. Nostones. No suspicious mass. Urinary bladder: Incompletely distended, but no evidence of stone, mass or debris. IMPRESSION: Unremarkable sonographic appearance of kidneys. WSN: [id number] Ordering Physician: Trip Mills Dictated By: Micheal Santiago MD Dictated Date/Time: 11/19/23 1:07 pm Reviewed By: Micheal Santiago MD Signed By: Micheal Santiago MD Signed Date/Time: 11/19/23 1:07 pm Transcribed By: SADIQ Transcribed Date/Time: 11/19/23 1:06 pm * Exam Date Time Procedure Performing Provider Status 11/15/23 3:[address] Head/Brain W/O Contrast Ramila Gomez; Auth (Verified) Notes: (CT Head/Brain W/O Contrast) Reason For Exam: headache, HTN;Other: RESULT: CT Head/Brain W/O Contrast CT Head/Brain W/O Contrast INDICATION: Hx of Present Illness: Worsening chest pressure today, pt stated chest discomfort sinceApril, stent placement in February. endorses WILKERSON due to HTN. pt was told to come in by public services librarian; Reason: Other:; headache, HTN; Clinical Question(s): Other:; SAH TECHNIQUE: Noncontrast head CT using axial technique and reconstructed in axial and coronal planes.Iterative reconstruction techniques are used to optimize dose and image quality. COMPARISON: None. FINDINGS: Indirect Sales Representative view findings, lines and tubes: None. BRAIN AND EXTRA-AXIAL SPACES: No parenchymal hemorrhage, midline shift, or mass effect. Gallego-white matter differentiation is wellpreserved. No acute infarct. Negative insular ribbon sign. Atherosclerotic vascular calcification of the carotid arteries but negative hyperdense vessel sign. Normal ventricular and sulcal configuration for age. No white matter lesions. No subarachnoid hemorrhage. No subdural or epidural collection. CALVARIUM, SKULL BASE, AND SOFT TISSUES: No fractures or suspicious bony lesions. Mild to moderate paranasal sinus mucosal thickening with more confluent opacification of the right anterior ethmoidal air cells and right frontal sinus. Small mucous retention cysts of the maxillary sinuses. Visualized orbits and globes are intact. The extracranial soft tissues are unremarkable. IMPRESSION: No acute intracranial pathology. WSN: [id number] Ordering Physician: Eveline Mora Dictated By: Merlin Boswell MD Dictated Date/Time: 11/15/23 3:48 pm Reviewed By: Merlin Boswell MD Signed By: Merlin Boswell MD Signed Date/Time: 11/15/23 3:48 pm Transcribed By: SADIQ Transcribed Date/Time: 11/15/23 3:45 pm * Exam Date Time Procedure Performing Provider Status 11/15/23 3:[address] Angio Abdomen Ramila Gomez; Auth (Verified) Notes: (CT Angio Abdomen) Reason For Exam: HTN, CP;Other: RESULT: CT Angio Abdomen EXAMINATION: CT Angio Chest, CT Angio Abdomen INDICATION: Worsening chest pressure today, pt stated chest discomfort since February, stent placementin February. endorses WILKERSON due to HTN; Clinical Question(s): R o dissection TECHNIQUE: An initial noncontrast CT of the chest was performed. Spiral CTA of the chest and abdomen was performed after rapid IV contrast administration without cardiac gating triggered by an ADOLFO onthe aorta. Images are formatted in multiple planes using 2-D multiplanar and 3-D maximum intensity projection. Obliqued images through the aortic root were reconstructed. 80 cc of Omnipaque 300 was administered intravenously. Weight-based protocol using automatic tube modulation was used to optimize exposure parameters. COMPARISONS: CT chest and abdomen/pelvis 12/21/2022 ANGIOGRAPHIC FINDINGS: No aortic dissection or aneurysm. The right brachiocephalic and left common carotid arteries share a common origin, a normal anatomic variant. Pulmonary arteries are normal in caliber. No evidence of central pulmonary embolism on this study performed without dedicated technique. Abdominal aorta: No aortic aneurysm or dissection. Mild atherosclerotic vascular calcifications. Celiac axis: Patent. Superior mesenteric artery: Patent with mild calcification at the origin. Right renal artery: Patent. Left renal artery: Patent. Inferior mesenteric artery: Patent. Visualized iliac arteries: Patent with mild calcification and soft tissue plaques. NON-ANGIOGRAPHIC FINDINGS: Indirect Sales Representative View Findings, Lines and Tubes: None. Trachea and Airways: Patent without evidence of tracheal or endobronchial lesion. Lungs and Pleura: There is a 5 mm solid triangular nodule in the right major fissure likely representing a lymph node. Interval resolution of the previously seen scattered nodules measuring up to 7 mm, which were likely inflammatory. Small bilateral pleural effusions causing mild adjacent compressive atelectasis. No pneumothorax. Mediastinum and juancho: No mass or hematoma. No mediastinal or hilar lymphadenopathy. Esophagus is patulous. Partially imaged thyroid is unremarkable. Heart: Mild cardiomegaly. Trace pericardial fluid without bar effusion. Moderate coronary artery calcification. Chest Wall Soft Tissues: Normal. Diaphragm : No significant abnormality. Liver: Normal. Gallbladder: Small amount of hyperdense material layering within the gallbladder fundus likely representing calcified gallstones versus sludge. Bile ducts: No biliary ductal dilation. Spleen: Normal. Pancreas: Atrophic. Adrenal glands: Normal. Kidneys and ureters: No hydronephrosis, stones, or suspicious masses. Stomach, small bowel, and large bowel: Gastric band in place. Phi angle is 70 degrees, which is increased from prior when it measured 65 degrees. Normal caliber bowel. No evidence of obstruction or surrounding inflammatory changes. Peritoneum and retroperitoneum: No ascites or pneumoperitoneum. No omental or mesenteric lesions. Lymph nodes: No enlarged lymph nodes. Abdominal wall: Diffuse flank edema. Bones: No acute abnormality. Multilevel degenerative changes of the visualized spine. IMPRESSION: 1. No aortic aneurysm or dissection. 2. Small bilateral pleural effusions with mild adjacent compressive atelectasis. 3. Small amount of hyperdense material within the gallbladder likely represents gallstones versus sludge. No evidence of acute cholecystitis. 4. Increased flattening of the gastric band with a phi angle of 78 degrees. This measurement is obtained with patient supine it is of uncertain significance, and there are no findings to suggest obstruction by the band. I have personally reviewed the images and I agree with this report. WSN: [id number] Ordering Physician: Eveline Mora Dictated By: Aniya Steven DO Dictated Date/Time: 11/15/23 4:21 pm Reviewed By: Micheal Ibarra MD Signed By: Micheal Ibarra MD Signed Date/Time: 11/15/23 4:26 pm Transcribed By: SADIQ Transcribed Date/Time: 11/15/23 4:06 pm * Exam Date Time Procedure Performing Provider Status 11/15/23 3:[address] Angio Chest Ramila Gomez; Marlin ( Verified) Notes: (CT Angio Chest) Reason For Exam: HTN, CP;Other: RESULT: CT Angio Chest EXAMINATION: CT Angio Chest, CT Angio Abdomen INDICATION: Worsening chest pressure today, pt stated chest discomfort since February, stent placementin February. endorses WILKERSON due to HTN; Clinical Question(s): R o dissection TECHNIQUE: An initial noncontrast CT of the chest was performed. Spiral CTA of the chest and abdomen was performed after rapid IV contrast administration without cardiac gating triggered by an ADOLFO onthe aorta. Images are formatted in multiple planes using 2-D multiplanar and 3-D maximum intensity projection. Obliqued images through the aortic root were reconstructed. 80 cc of Omnipaque 300 was administered intravenously. Weight-based protocol using automatic tube modulation was used to optimize exposure parameters. COMPARISONS: CT chest and abdomen/pelvis 12/21/2022 ANGIOGRAPHIC FINDINGS: No aortic dissection or aneurysm. The right brachiocephalic and left common carotid arteries share a common origin, a normal anatomic variant. Pulmonary arteries are normal in caliber. No evidence of central pulmonary embolism on this study performed without dedicated technique. Abdominal aorta: No aortic aneurysm or dissection. Mild atherosclerotic vascular calcifications. Celiac axis: Patent. Superior mesenteric artery: Patent with mild calcification at the origin. Right renal artery: Patent. Left renal artery: Patent. Inferior mesenteric artery: Patent. Visualized iliac arteries: Patent with mild calcification and soft tissue plaques. NON-ANGIOGRAPHIC FINDINGS: Indirect Sales Representative View Findings, Lines and Tubes: None. Trachea and Airways: Patent without evidence of tracheal or endobronchial lesion. Lungs and Pleura: There is a 5 mm solid triangular nodule in the right major fissure likely representing a lymph node. Interval resolution of the previously seen scattered nodules measuring up to 7 mm, which were likely inflammatory. Small bilateral pleural effusions causing mild adjacent compressive atelectasis. No pneumothorax. Mediastinum and juancho: No mass or hematoma. No mediastinal or hilar lymphadenopathy. Esophagus is patulous. Partially imaged thyroid is unremarkable. Heart: Mild cardiomegaly. Trace pericardial fluid without bar effusion. Moderate coronary artery calcification. Chest Wall Soft Tissues: Normal. Diaphragm : No significant abnormality. Liver: Normal. Gallbladder: Small amount of hyperdense material layering within the gallbladder fundus likely representing calcified gallstones versus sludge. Bile ducts: No biliary ductal dilation. Spleen: Normal. Pancreas: Atrophic. Adrenal glands: Normal. Kidneys and ureters: No hydronephrosis, stones, or suspicious masses. Stomach, small bowel, and large bowel: Gastric band in place. Phi angle is 70 degrees, which is increased from prior when it measured 65 degrees. Normal caliber bowel. No evidence of obstruction or surrounding inflammatory changes. Peritoneum and retroperitoneum: No ascites or pneumoperitoneum. No omental or mesenteric lesions. Lymph nodes: No enlarged lymph nodes. Abdominal wall: Diffuse flank edema. Bones: No acute abnormality. Multilevel degenerative changes of the visualized spine. IMPRESSION: 1. No aortic aneurysm or dissection. 2. Small bilateral pleural effusions with mild adjacent compressive atelectasis. 3. Small amount of hyperdense material within the gallbladder likely represents gallstones versus sludge. No evidence of acute cholecystitis. 4. Increased flattening of the gastric band with a phi angle of 78 degrees. This measurement is obtained with patient supine it is of uncertain significance, and there are no findings to suggest obstruction by the band. I have personally reviewed the images and I agree with this report. WSN: [id number] Ordering Physician: Eveline Mora Dictated By: Aniya Steven DO Dictated Date/Time: 11/15/23 4:21 pm Reviewed By: Micheal Ibarra MD Signed By: Micheal Ibarra MD Signed Date/Time: 11/15/23 4:26 pm Transcribed By: SADIQ Transcribed Date/Time: 11/15/23 4:06 pm * Exam Date Time Procedure Performing Provider Status 11/15/23 1:33 AM Chest 2 Views Frontal and Lat Hanny Bailey; Marlin (Verified) Notes: (Chest 2 Views Frontal and Lat) Reason For Exam: Chest Pain;Other: RESULT: Chest 2 Views Frontal and Lat Chest 2 Views Frontal and Lat Reason: Other:; Chest Pain; Clinical Question(s): Other: COMPARISON: 03/04/2023 FINDINGS: LINES AND TUBES: None. LUNGS AND PLEURA: Small left pleural effusion with adjacent atelectasis There is trace right pleural fluid Minimal central vascular congestion. No pneumothorax. HEART, MEDIASTINUM AND JUANCHO: Postsurgical changes in the mediastinum. Heart size at upper limit of normal. Mild aortic arch atherosclerosis BONES AND SOFT TISSUES: No acute abnormality. Prior median sternotomy. IMPRESSION: Small left and trace right pleural effusion with mild central vascular congestion, suggesting pulmonary edema. WSN: [id number] Ordering Physician: Nicholas Garcia Dictated By: Maraielena Steward MD Dictated Date/Time: 11/15/23 8:15 am Reviewed By: Mariaelena Steward MD Signed By: Mariaelena Steward MD Signed Date/Time: 11/15/23 8:15 am Transcribed By: SADIQ Transcribed Date/Time: 11/15/23 8:15 am Vital Signs Most recent to oldest [Reference Range]: 1 2 3 4 5 Height 165 cm (11/24/23 1:39 PM) 165 cm (11/24/23 8:19 AM) 165 cm (11/24/23 1:56 AM) Weight 101.5 kg (11/24/23 5:54 AM) 105.7 kg (11/22/23 4:24 AM) 105.7 kg (11/21/23 6:22 AM) Oxygen Saturation [94-100 %] 98 % (11/24/23 1:39 PM) 97 % (11/24/23 8:19 AM) 97 % (11/24/23 1:56 AM) Pulse Rate [55-90 bpm] 74 bpm (11/24/23 1:39 PM) 72 bpm (11/24/23 10:42 AM) 72 bpm (11/24/23 8:19 AM) Body Mass Index [18.5-24.99 kg/m2] 38.02 kg/m2 *>HHI* (11/16/23 2:52 PM) 38.02 kg/m2 *>HHI* (11/16/23 9:23 AM) 38.02 kg/m2 *>HHI* (11/16/23 5:46 AM) Blood Pressure [90-138/55-84 mm Hg] 157/59mm Hg *H* (11/24/23 4:23 PM) 145/53mm Hg *H* (11/24/23 1:39 PM) 148/60mm Hg *H* (11/24/23 10:42 AM) 148/60mm Hg *H* (11/24/23 10:42 AM) 148/60mm Hg *H* (11/24/23 10:42 AM) Respiratory Rate [16-30 br/min] 18 br/min (11/24/23 1:39 PM) 18 br/min (11/24/23 8:19 AM) 20 br/min (11/24/23 1:56 AM) Temperature [96.8-100.4 DegF] 98.4 DegF (11/24/23 1:39 PM) 98.7 DegF (11/24/23 8:19 AM) 97.4 DegF (11/24/23 1:56 AM) Liters per Minute 0 L/min (11/20/23 2:11 AM) 0 L/min (11/19/23 11:55 PM) Mode of Delivery (Oxygen) Room air (11/24/23 1:39 PM) Room air (11/24/23 8:19 AM) Room air (11/24/23 1:56 AM) Blood pressure sites Arm, left (11/24/23 1:39 PM) Arm, left (11/24/23 8:19 AM) Arm, left (11/24/23 1:56 AM) Temperature Route Oral (11/24/23 1:39 PM) Oral (11/24/23 8:19 AM) Temporal (11/24/23 1:56 AM) Dry Weight 103.5 kg (11/16/23 2:52 PM) 103.5 kg (11/16/23 9:23 AM) 103.5 kg (11/16/23 5:46 AM) Weight Obtained Via Bed scale (11/24/23 5:54 AM) Bed scale (11/22/23 4:24 AM) Bed scale (11/21/23 6:22 AM) Dry Weight Obtained Via Patient/family stated (11/16/23 9:23 AM) Patient/family stated (11/15/23 12:38 AM) Social History Social History Type Response Smoking Status Never smoker entered on: 09/14/15 Sex EKG study * Event Display: EKG Authored Date: * Event Display: ECG 12-Lead Authored Date: Please click on pdf link to open report * Event Display: ECG 12-Lead Authored Date: Ventricular Rate: 62 BPM Atrial Rate: 62 BPM P-R Interval: 164 ms QRS Duration: 84 ms Q-T Interval: 454 ms QTC Calculation(Bazett): 460 ms P [place]: 51 degrees R [place]: -44 degrees T [place]: 152 degrees Normal sinus rhythm Left axis deviation Low voltage QRS Cannot rule out Anterior infarct , age undetermined Abnormal ECG When compared with ECG of 16-NOV-2023 15:32, No significant change was found Confirmed by AMILCAR COMBS ([id number]) on 11/21/2023 6:23:42 PM Newberg: AMILCAR COMBS * Event Display: EKG Authored Date: * Event Display: EKG Authored Date: * Event Display: EKG Authored Date: * Event Display: ECG 12-Lead Authored Date: [id number] Please click on pdf link to open report * Event Display: ECG 12-Lead Authored Date: [id number] Ventricular Rate: 66 BPM Atrial Rate: 66 BPM P-R Interval: 148 ms QRS Duration: 82 ms Q-T Interval: 424 ms QTC Calculation(Bazett): 444 ms P [place]: 54 degrees R Washington: -36 degrees T [place]: 206 degrees Normal sinus rhythm Left axis deviation Anteroseptal infarct , age undetermined ST and T wave abnormality, consider lateral ischemia Abnormal ECG 15-NOV-2023 23:48, No significant change was found Confirmed by AMILCAR COMBS ([id number]) on 11/21/2023 5:20:10 PM Newberg: AMILCAR COMBS * Event Display: ECG 12-Lead Authored Date: [id number] Please click on pdf link to open report * Event Display: ECG 12-Lead Authored Date: [id number] Ventricular Rate: 67 BPM Atrial Rate: 67 BPM P-R Interval: 134 ms QRS Duration: 84 ms Q-T Interval: 428 ms QTC Calculation(Bazett): 452 ms P [place]: 23 degrees R Washington: -45 degrees T [place]: 129 degrees Sinus rhythm with Premature supraventricular complexes Left anterior fascicular block Anteroseptal infarct , age undetermined ST and T wave abnormality, consider lateral ischemia Abnormal ECG When compared with ECG of 15-NOV-2023 00:49, T wave inversion more evident in Lateral leads Confirmed by NAVNEET FERREIRA MD ([id number]) on 11/21/2023 9:43:36 AM Newberg: NAVNEET FERREIRA MD Heart * Event Display: Echocardiogram - Complete Authored Date: Transthoracic Echocardiography Report (TTE) Patient Demographics Patient Name ALEXY GUZMAN Date of Study 11/18/2023 Corporate Gender Female Facility Race Black Ethnicity Date of 1950 Height: 64.96 inches Age 72 year(s) Weight: 229.28 pounds Accession Number [id number] BSA: 2.1 m2 Room Number [id number] BMI: 38.2 kg/m2 Referring Physician Sharri Rodarte Physician Sherry AVILES Sales Record Clerk Omid Ramos [facility] Indications Chest pain. Clinical History CABG x2 Hypertension. CKD Hyperlipidemia. Diabetes Mellitus. Study Data Type of Study TTE procedure:Echo Complete-Doppler, Colorflow, M-Mode. Study Date11/18/2023 Start Time: 10:10 AM Study Location: [facility] – [place] Adult Echo Study Status: Bedside Patient Status: Routine Technical Quality: Technically difficult due to obesity. Blood Pressure:133/63 mmHg EKG: Normal sinus rhythm HR: 65 bpm Allergies - NKDA. 2D Measurements LV Diastolic Dimension: 4.3 cm LV Systolic Dimension: 2.9 cm LV Septum Diastolic: 1.2 cm LV PW Diastolic: 1.2 cm AO Root Dimension: 3.2 cm LA ESV (BP):67.1 ml LVOT Stroke Volume: 70.28 ml LA ESV Index: 32 ml/m2 Stroke Volume Index33.47 ml/m2 LVOT: 1.9 cm Cardiac Index:2.18 l/min/m2 Doppler Measurements AV Peak Velocity: 132 cm/s AV Peak Gradient: 6.97 mmHg MV Mean Gradient: 3 mmHg LVOT Peak Velocity: 103 cm/s MV Area (continuity): 1.67 cm2 LVOT VTI24.8 cm TR Velocity:173 cm/s TR Gradient:11.97 mmHg E' Septal Velocity: 3.7 cm/s E' Lateral Velocity: 4.03 cm/s Cardiac Anatomy Left Ventricle/Interventricular Septum The left ventricular size is normal. The left ventricular wall thickness is mildly increased. The left ventricular ejection fraction is 55-60 %. Cannot assess regional wall motion abnormalities. Unable to assess diastolic function due to technical limitation . Left Atrium/Interatrial Septum The left atrium is normal in size. Aortic Valve The aortic valve is trileaflet . The non-coronary cusp is mildly thickened . There is no aortic stenosis. There is no aortic regurgitation. Mitral Valve The mitral valve appears mildly thickened. There is trace mitral regurgitation. Aorta The ascending aorta and aortic root are normal in size. Right Ventricle The right ventricle is poorly visualized. Right Atrium The right atrium is normal in size. Pulmonic Valve Pulmonic valve is not well visualized. There is no pulmonic stenosis or insufficiency. Tricuspid Valve The tricuspid valve is poorly visualized. There is trace tricuspid valve regurgitation. Pumonary Artery An accurate pulmonary artery pressure could not be obtained. Venous Structures The inferior vena cava size is normal with normal inspiratory collapse. Pericardium/Extracardiac There is no significant pericardial effusion. Summary The left ventricular size is normal. The left ventricular wall thickness is mildly increased. The left ventricular ejection fraction is 55-60 %. The right ventricle is poorly visualized. There is no significant valve disease. Signature * Event Display: Echocardiogram - Complete Authored Date: Hospital Progress note * Daniel Lara RN: VERIFY, PERFORM, SIGN Event Display: Progress Note Hospital Authored Date: [id number] Patient: ALEXY GUZMAN Age: 72 years Sex: Female : 1950 Associated Diagnoses: None Author: Daniel Lara RN Findings Problem Related to Alteration in Cardiac Function (new) : Alteration in Cardiac Function/new 11/24/2023 9:00 EST Alteration in Cardiac Status Related to Heart failure, Hypertension Goals & Outcomes, Cardiac Status Pt will resume/maintain adequate cardiac output, Pt will resume/maintain adequate hemodynamic status, Pt will resume/maintain adequate respiratory function, Pt will resume/maintain intact neuro function, Pt will maintain adequate GI/ function appropriate for pt, Pt will maintain adequate nutrition status, Pt/caregiver will state understanding of diagnosis, Pt/caregiver will state strategies to reduce risk factors Cardiac Interventions Implemented Assess/monitor cardiac status, Assess/monitor neuro status, Assess/monitor respiratory status, Call/Report variances in ECG to provider, Document & Monitor O2 Sats; Administer O2 as ordered, Ensure adequate caloric intake, If no bowel movement in 3 days activate bowel regime, Monitor & document daily weight BH Goals/Interventions, Cardiac Yes Cardiac, Problem Start 11/16/2023 22:00 Reviewed Plan with, Cardiac Status Patient Patient Progression, Cardiac Status Patient progressing according to plan . Alteration in Genitourinary : Alteration in Genitourinary Function/new 11/24/2023 9:00 EST Alteration in Status Related to Other: jerzy Goals & Outcomes, Genitourinary Pt will achieve normal/improved fluid balance, Pt will maintainadequate GI function appropriate for pt, Pt will maintain adequate function appropriate for pt, Pt will maintain normal fluid balance, Pt will resume normal pattern of elimination, Pt/caregiver will state understanding of self-care skills Interventions, Assess/monitor/maintain Genitourinary status, Assist & encourage pt with meticulous keanu care, Encourage PO fluid intake as allowed by diet Goals/Interventions, Genitourinary Yes Genitourinary, Problem Start 11/16/2023 22:00 Reviewed Plan with, Genitourinary Patient Patient Progression, Genitourinary Patient progressing according to plan Genitourinary, Problem Ongoing Yes . Nursing Data Cardiac Data. : Cardiac Data. 11/24/2023 15:00 EST Cardiovascular Assessment Status Unchanged from recorder's assessment 11/24/2023 9:00 EST Nail Bed Color, Fingers Pale Nail Bed Color, Toes Pale Skin Temperature Upper Extremities Warm, Dry Skin Temperature Lower Extremities Warm, Dry Heart Sounds S1, S2 Heart Rhythm Regular Cardiac Rhythm Normal sinus rhythm Capillary Refill < 3 seconds Ankle, left 1+ trace Ankle, right 1+ trace Pedal, left 1+ trace Pedal, right 1+ trace library monitor Yes Cardiovascular WNL except . Gastrointestinal Data. : Gastrointestinal Data. 11/24/2023 15:00 EST Gastrointestinal Assessment Status Unchanged from recorder's assessment 11/24/2023 9:00 EST Gastrointestinal Symptoms Laxitave use GI WNL except . Genitourinary Data. : Genitourinary Data. 11/24/2023 15:00 EST Genitourinary Assessment Status Unchanged from recorder's assessment 11/24/2023 9:00 EST Genitourinary Symptoms Other: has jerzy Genitourinary Comment renal values trending down . Musculoskeletal Data. : Musculoskeletal Data. 11/24/2023 15:00 EST Musculoskeletal Assessment Status Unchanged from recorder's assessment 11/24/2023 9:00 EST Musculoskeletal Symptoms Weakness . Neurological Data. : Neurological Data. 11/24/2023 15:00 EST Neurological Assessment Status Unchanged from recorder's assessment 11/24/2023 10:42 EST Pain Intensity 0 11/24/2023 10:21 EST Pain Intensity Not Done: Patient Refused (Not Done) 11/24/2023 9:00 EST Neurological Symptoms Weakness or loss of muscle strength . Respiratory/Pulmonary Data. : Respiratory/Pulmonary Data. 11/24/2023 15:00 EST Respiratory Assessment Status Unchanged from recorder's assessment 11/24/2023 13:39 EST Mode of Delivery (Oxygen) Room air 11/24/2023 9:00 EST Left Lower Lobe Breath Sounds Diminished Right Lower Lobe Breath Sounds Diminished Respiratory WNL except . Vital Signs : VITAL SIGNS SECTION 11/24/2023 13:39 EST Temperature 98.4 DegF Temperature Route Oral Pulse Rate 74 bpm Respiratory Rate 18 br/min Systolic Blood Pressure 145 mm Hg H Diastolic Blood Pressure 53 mm Hg L Blood pressure sites Arm, left Mean Arterial Pressure 84 mm Hg Pulse Pressure 92 mm Hg Oxygen Saturation 98 % Mode of Delivery (Oxygen) Room air . Clinical Measurements : CLINICAL MEASUREMENTS 11/24/2023 5:54 EST Weight 101.5 kg 11/22/2023 4:24 EST Weight 105.7 kg . Narrative/Incidental Weight down 4.2kg in 48 hours, some LE edema but no shortness of breath and renal values have trended down - renal service decided no biopsy needed; tolerated eating at meals with glucose covered perscale, oob in room and to BR to toilet. Not in pain. Discharge instructions reviewed with pt - medicines reviewed, blood draw reviewed, HF instructions/diabetes and heart disease instructions, daily weights reviewed, VNA services - answered questions -she understands(see discharge instructions). 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 * Matty Joel MD: PERFORM, SIGN, VERIFY Event Display: Progress Note Hospital Authored Date: Patient: ALEXY GUZMAN Age: 72 years Sex: Female : 1950 Associated Diagnoses: None Author: Matty Joel MD [facility] Progress Note Interval History Cr improving daily. no complaint of pain,chest pain, dizziness or SOB Review of Systems Review of Systems Respiratory: shortness of breath. Cardiovascular: peripheral edema, no chest pain. Gastrointestinal: no abdominal pain, no nausea, no vomiting. Physical Examination Vital Signs Vitals : VITALS 11/24/2023 8:19 EST Height 165 cm Temperature 98.7 DegF Temperature Route Oral Pulse Rate 72 bpm Respiratory Rate 18 br/min Systolic Blood Pressure 148 mm Hg H Diastolic Blood Pressure 60 mm Hg Blood pressure sites Arm, left Mean Arterial Pressure 89 mm Hg Pulse Pressure 88 mm Hg Oxygen Saturation 97 % Mode of Delivery (Oxygen) Room air . General Appearance NAD. HEENT Moist mucous membranes. Respiratory Decreased breath sounds. Cardiac Rhythms: RRR. Abdomen/GI Abdomen: soft. Extremities Edema: grade 1-2 . Neurologic Alert & oriented x 3 . Results Review 7 Day Results Results Laboratory : LABORATORY 11/24/2023 5:53 EST WBC 6.4 k/mm3 RBC 2.95 m/mm3 L Hgb 8.1 Gm/dL L Hct 25.8 % L MCV 87.5 femtoliters MCH 27.5 pg MCHC 31.4 g/dL L Platelet Count 272 k/mm3 RDW-SD 58.9 femtoliters H MPV 12.5 femtoliters H Nucleated RBC (Automated) 0.0 #/100 WBC'S Abs. NRBC 0.0 k/mm3 Sodium 141 mmol/L Potassium 4.3 mmol/L Chloride 105 mmol/L Bicarbonate Level 28 mmol/L Anion Gap 8 Glucose Level 129 mg/dL H BUN 39 mg/dL H Creatinine-Blood 2.9 mg/dL H Estimated GFR Creatinine 17 ML/MIN/1.73 M2 Calcium 8.7 mg/dL Impression and Plan Ms. 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 1. JERZY on CKD BL Cr 1.5mg/dL Cr this admission peaked at 4.5mg/dL, non-oliguric. JERZY is in the setting of over-diuresis leading to pre-renal azotemia for which diuretics were held.Patient also received CT contrast 11/15, during a time where tubular flow rate was reduced. This likely led to retained contrast, afferent vasoconstriction and tubular injury. U/A shows Hyaline on urine sediment Fena is 0.5% No evidence of obstruction on imaging. UTP/Cr 10.82 (11/18 Repeat UTP/Cr 4.72 Patient had diuretics held in favor of IVF support. Cr improved daily. Now on PO maintenance lasix. Plan: - F/u free light chains, immunofixation, PLA2R (proteinuria work up) - Continue PO Lasix 40 mg BID - Hold Losartan, and for now on Coreg 12.5mg BID, Hydralazine 50 TID and Nifedipine 60mg daily. - Daily renal panel - Monitor I/Os - Avoid further IV contrast, nephrotoxins - Bladder scans every shift, heath if > 350 Thank you for the courtesy of this consult, RTANE will continue monitoring the patient along with you please do not hesitate to call us with any further questions Matty Joel M.D. [facility] [address] , [address] Available by [employer] * Selene Loredo LPN: PERFORM, SIGN, VERIFY Event Display: Progress Note Hospital Authored Date: Patient: ALEXY GUZMAN Age: 72 years Sex: Female : 1950 Associated Diagnoses: None Author: Selene Loredo LPN Findings Problem Related to Alteration in Cardiac Function (new) : Alteration in Cardiac Function/new 11/23/2023 22:00 EST Alteration in Cardiac Status Related to Heart failure, Hypertension Goals & Outcomes, Cardiac Status Pt will resume/maintain adequate cardiac output, Pt will resume/maintain adequate hemodynamic status, Pt will resume/maintain adequate respiratory function, Pt will resume/maintain intact neuro function, Pt will maintain adequate GI/ function appropriate for pt, Pt will maintain adequate nutrition status, Pt/caregiver will state understanding of diagnosis, Pt/caregiver will state strategies to reduce risk factors Cardiac Interventions Implemented Assess/monitor cardiac status, Assess/monitor neuro status, Assess/monitor respiratory status, If no bowel movement in 3 days activate bowel regime, Monitor & document daily weight BH Goals/Interventions, Cardiac Yes Cardiac, Problem Start 11/16/2023 22:00 Reviewed Plan with, Cardiac Status Patient Patient Progression, Cardiac Status Patient progressing according to plan . Nursing Data Cardiac Data. : Cardiac Data. 11/23/2023 21:32 EST Pacemaker No Cardiac Rhythm Normal sinus rhythm Capillary Refill < 3 seconds library monitor Yes Cardiovascular WNL except . Respiratory/Pulmonary Data. : Respiratory/Pulmonary Data. 11/23/2023 21:32 EST Respiratory WNL . Vital Signs : VITAL SIGNS SECTION 11/24/2023 1:57 EST Early Warning Score 2.00 11/24/2023 1:56 EST Temperature 97.4 DegF Temperature Route Temporal Pulse Rate 72 bpm Respiratory Rate 20 br/min Systolic Blood Pressure 129 mm Hg Diastolic Blood Pressure 44 mm Hg L Blood pressure sites Arm, left Mean Arterial Pressure 72 mm Hg Pulse Pressure 85 mm Hg Oxygen Saturation 97 % Mode of Delivery (Oxygen) Room air 11/23/2023 21:14 EST Early Warning Score 2.00 Early Warning Score 2.00 11/23/2023 21:11 EST Pulse Rate 71 bpm Systolic Blood Pressure 137 mm Hg Systolic Blood Pressure 137 mm Hg Diastolic Blood Pressure 51 mm Hg L Diastolic Blood Pressure 51 mm Hg L 11/23/2023 20:14 EST Early Warning Score 2.00 11/23/2023 19:31 EST Early Warning Score 2.00 11/23/2023 19:30 EST Temperature 97.9 DegF Temperature Route Temporal Pulse Rate 73 bpm Respiratory Rate 19 br/min Systolic Blood Pressure 150 mm Hg H Diastolic Blood Pressure 60 mm Hg Blood pressure sites Arm, left Mean Arterial Pressure 90 mm Hg Pulse Pressure 90 mm Hg Oxygen Saturation 98 % Mode of Delivery (Oxygen) Room air . Psychosocial : Psychosocial Data. 11/23/2023 23:00 EST Affect/Behavior Appropriate, Calm, Cooperative . Evaluation Pt is A&OX3, VSS, lung sounds clear. NSR on tele, no complaint of pain,chest pain, dizziness orSOB. On Lasix po 40mg bid. OOB independently with walker. Will continues to monitor weights, labs and I&Os. Call roberson at bedside. . Discharge Information Case Management Discharge Plan : Case Management Discharge Plan Data 11/22/2023 16:33 EST Discharge Level of Care at Discharge Homehealth/VNA Discharge VNA/Hospice/Home Care [facility] [phone] Agency [employer] Equipment [employer]er #1 Intake Service Categories #1 Custodial Service Comments #1 A nurse will call you to arrange a visit with you at your home. If you do not hear from agency, please call them. Note * Daniel Lara RN: PERFORM Event Display: Discharge/Transfer Note Hospital Authored Date: [id number] Nursing Discharge Note Entered On: 11/24/2023 17:57 EST Performed On: 11/24/2023 17:38 EST by Daniel Lara RN Nursing Discharge Note 2 Discharge Time : 11/24/2023 17:38 EST Discharge Level of Care at Discharge : Homehealth/VNA Discharge VNA/Hospice/Home Care(v001) : [facility] [phone] Patient Left Unit Via : Wheelchair Patient Accompanied Off Unit with : Significant other, Other: nursing staff DC Instructions Provided & Signed by Pt : Yes Patient Understands D/C Instructions : Yes Verbalized Understanding of D/C Plan By : Patient Patient Instructions Discharge Signed : Yes Discharge Comments : see discharge instructions Did Pt have Specialty Bed or Wound Vac : No Daniel Lara RN - 11/24/2023 17:56 EST * Anuradha Hawkins DO: PERFORM, MODIFY, MODIFY, MODIFY, MODIFY, MODIFY, MODIFY, MODIFY, MODIFY, MODIFY, MODIFY, MODIFY, MODIFY, MODIFY, MODIFY, MODIFY, MODIFY, MODIFY, MODIFY, MODIFY Event Display: Discharge/Transfer Note Hospital Authored Date: [id number] Patient: ??ALEXY GUZMAN ? Age:??72 Years?Sex:??Female?:??1950?? Patient Information Discharge Location: M7 Primary Care Physician: Rosalina AVILES, Diana Worley Admit Date/Time: 11/15/23 18:34 Discharge Date: 11/24/2023 Discharge Disposition Discharge Disposition: Home with Home Health Discharge Diagnosis Acute heart failure with preserved ejection fraction (I50.31) Acute kidney injury (N17.9) Atypical chest pain (R07.89) GERD (gastroesophageal reflux disease) (K21.9) HTN (hypertension) (I10) Heart failure (I50.9) Hypertensive urgency (I16.0) Insulin dependent type 2 diabetes mellitus (E11.9) Pulmonary edema (J81.1) RUQ pain (R10.11) ?? _ Discharge Medications Acetaminophen (acetaminophen 325 mg oral tablet)?975?Milligram?By Mouth?Every 6 hours Albuterol (Albuterol (Eqv-ProAir HFA) 90 mcg/inh inhalation aerosol)?INHALE 2 PUFFS INTO THE LUNGS EVERY 6 HOURS NEEDED FOR COUGH OR WHEEZING OR SHORTNESS OF BREATH Aspirin (aspirin 81 mg oral tablet)?1?tab(s)?81?Milligram?By Mouth?Daily Atorvastatin (atorvastatin 80 mg oral tablet)?1?tab(s)?80?Milligram?By Mouth?Daily at bedtime Bisacodyl (bisacodyl 10 mg rectal suppository)?1?suppository(ies)?10?Milligram?Rectal ly?Daily?as needed?Constipation Bisacodyl (bisacodyl 5 mg oral delayed release tablet)?10?Milligram?By Mouth?Daily?as needed?Constipation Carvedilol (Coreg 12.5 mg oral tablet)?12.5?Milligram?By Mouth?2 times a day Cholecalciferol (Vitamin D3 1000 intl units oral capsule)?1?capsule?1,000?InternationalUnit?By Mouth?Daily Docusate-Senna (Docusate/Senna Tablet)?2?tab(s)?By Mouth?Daily Durable Medical Equipment (basic metabolic panel)?See Instructions?BMP to be done once between 11/26/23-11/30/23. ICD 10: [id number] send results to Dr. Diana Chaganti Emollients, Topical (Vashe Topical Solution)?475?Milliliter?Topically?Every 12 hours Ferrous Sulfate (ferrous sulfate 325 mg oral enteric coated tablet)?325?Milligram?By Mouth?Every Sunday, Sunday and Sunday?may take with food to minimize abdominal discomfort Furosemide (furosemide 40 mg oral tablet)?40?Milligram?By Mouth?2 times a day hydrALAZINE (hydrALAZINE 50 mg oral tablet)?1?tab(s)?50?Milligram?By Mouth?3 times a day Insulin Glargine (Lantus Inj)?0.4?Milliliter?40?unit(s)?Subcutaneous Injection?Every 24 hours Insulin Lispro (insulin lispro 100 u/ml subcutaneous injection)?2-10 units?Subcutaneous Injection?3 times a day before meals?<< Sliding Scale Comments >>120 - 169 ?? 2 units Call if less than [phone] ?? 4 units 220 - 269 ?? 6 units 270 - 319 ?? 8 units 320 - 369 ?? 10 units Call if greater than 400<< Sliding Scale Comments >> Lidocaine Topical (lidocaine 5% topical film)?Topically?Daily Methenamine (methenamine hippurate 1 gm oral tablet)?1?tab(s)?1?gram?By Mouth?2 times a day Multivitamin?By Mouth?Daily NIFEdipine (NIFEdipine 60 mg oral tablet, extended release)?60?Milligram?By Mouth?Daily Pantoprazole (pantoprazole 40 mg oral delayed release tablet)?1?tab(s)?40?Milligram?By Mouth?Daily Polyethylene Glycol 3350 (MiraLax Powder)?1?pack/packet?17?gram?By Mouth?Daily Potassium Chloride (Potassium Chloride (Omd-Crps-Gqx 10) 10 mEq oral tablet, extended release)?TAKE 1 TABLET BY MOUTH DAILY ? Medications Started Ferrous Sulfate (ferrous sulfate 325 mg oral enteric coated tablet)?325?Milligram?By Mouth?Every Sunday, Sunday and Sunday?may take with food to minimize abdominal discomfort NIFEdipine (NIFEdipine 60 mg oral tablet, extended release)?60?Milligram?By Mouth?Daily Medications Discontinued Amlodipine 5mg Losartan (losartan 50 mg oral tablet)?50?Milligram?1?tablet?By Mouth?Daily Doses Changed Carvedilol (Coreg 12.5 mg oral tablet)?12.5?Milligram?By Mouth?2 times a day hydrALAZINE (hydrALAZINE 50 mg oral tablet)?1?tab(s)?50?Milligram?By Mouth?3 times a day Furosemide (furosemide 40 mg oral tablet)?40?Milligram?By Mouth?2 times a day Allergies Allergies ?(Active and Proposed Allergies Only) NKA? (Severity: Unknown severity, Onset: Unknown) ? PCP Follow-Up/Heads-Up She was admitted for heart failure exacerbation, JERZY and hypertensive urgency. She had several medication changes (see above). She willl repeat a BMP next week (between 11/26-11/30). please follow upon these results. Once her renal function returns to baseline, consider restarting her losartan. Please ensure she follows up with nephrology.?? 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 She was admitted for acute on chronic heart failure exacerbation and hypertensive urgency. She had a repeat ECHO that showed EF 55-60%. She was treated with IV lasix and has now been transitioned to PO. Her course has been complicated by JERZY with Cr with peak 4.5, now downtrending to 2.5. Renal was consulted during her course and she will follow up with them as an outpatient. ?? At this time, she is hemodynamically stable and ready to be discharged home with [facility]. These will start tomorrow. ?? Acute on chronic??heart failure with preserved ejection fraction ??(I50.31): resolved Pulmonary edema (J81.1): resolved Atypical chest pain (R07.89): resolved Hypertensive urgency (I16.0), Resolved? Patient symptomatic w/ increased swelling, SOB, physical exam consistent with volume overload today ECHO:?? The left ventricular size is normal. The left ventricular wall thickness is mildly increased. The left ventricular ejection fraction is 55-60 %. The right ventricle is poorly visualized.Thereis no significant valve disease. ?? Recommendations: -Lasix 40mg??PO BID per renal recs increased from home dose of 20mg BID) -Continue Hydralazine 50mg TID -Continue Coreg 12.5 BID -Stop??home??Losartan 50mg-consider restarting once renal function returns to baseline -Continue Nifedipine 60mg daily ?? Acute kidney injury (N17.9):??improving Baseline Cr 1.5,??downtrending to??2.5 today, 4.5 yesterday () Free [place] elevated: 99.07 Free Lam[place] elevated: 44.96 FLC ratio ~2.0 ?? Recommendations: -BMP to be done next week, follow up results -follow up??immunofixation and phospholipase -follow up with renal outpatient ?? Insulin dependent type 2 diabetes mellitus (E11.9):?? Hypoglycemia ?? Recommendations: -??Continue home glargine and lispro -continue home trulicity ?? Iron Deficiency: ?? Recommendations: -continue ferrous sulfate ? Asthma: Continue albuterol Hyperlipidemia: Continue atorvastatin 80 GERD: Continue pantoprazole 40 Vitamin D deficiency: Continue vitamin D3 daily Coronary artery??Disease: has been off plavix since 03/2023 as was taken off by Cardiac surgeon perpatient report.? Vital Signs?? Temperature: 98.4 DegF (11/24/23 13:39:00) Temperature Route: Oral (11/24/23 13:39:00) Pulse Rate: 74 bpm (11/24/23 13:39:00) Respiratory Rate: 18 br/min (11/24/23 13:39:00) Systolic Blood Pressure:??145 mm Hg??High (11/24/23 13:39:00) Diastolic Blood Pressure:??53 mm Hg??Low (11/24/23 13:39:00) Blood pressure sites: Arm, left (11/24/23 13:39:00) Mean Arterial Pressure: 84 mm Hg (11/24/23 13:39:00) Pulse Pressure: 92 mm Hg (11/24/23 13:39:00) Oxygen Saturation: 98 % (11/24/23 13:39:00) Mode of Delivery (Oxygen): Room air (11/24/23 13:39:00) Early Warning Score: 0 (11/24/23 13:41:21) ? Intake/Output? 11/15 18:34 11/24 07:00 11/23 07:00 11/22 07:00 11/21 07:00 ?? 11/24 14:34 11/24 14:34 11/24 06:59 11/23 06:59 11/22 06:59 Intake ? 8843 ?180 ?720 ?920 ? 1088 Output ?89928 ?0 ? 2995 ? 2875 ? 1700 Net Total ?-3228 ?180 ?-2275 ?-1955 ? -612 ? Urine Count ?8 ?0 ?0 ?0 ?1 ? Precautions No Precautions documented.? Basic ADLs Activity Assistance: Independent (11/22/23) Ambulatory devices needed: Walker (11/22/23) Feeding Assistance: Independent (11/24/23) Hygiene: Self, Partial bath, Mouth care, Keanu care, Skin care (11/22/23) ? Therapeutic Activity Therapeutic Activities/Mobility/Balance?? No qualifying data available. ?? . Physical Exam Constitutional: Alert, in no distress. Mental Status: Oriented to person, place and time. Neck: Supple, Full range of motion.??No apparent JVD Respiratory: Clear to auscultation. No wheezing, rales or rhonchi. Cardiovascular: S1 S2 regular. No murmurs, rubs or gallops. Gastrointestinal: Abdomen soft, non-tender, non-distended. Normal bowel sounds. Mild??RUQ??tenderness to palpation.??(chronic) Neurologic: No focal neurological deficits. Skin: No rashes or lesions. No petechiae or purpura. +1??pitting??edema??bilaterally in lower extremities?? Psychiatric: Normal mood and affect [facility] nephrology Dr. [place]-cardiology Pending Results Immunofixation Serum ordered on 11/21/2023 Phospholipase A2 Receptor Ab ordered on 11/21/2023 Urea Nitrogen Urine ordered on 11/21/2023 Patient Education Titles Diabetes and Heart Disease?? Heart Failure: Making Changes to Your Diet?? Heart Failure: Tracking Your Weight?? Discharge Instructions for Heart Failure?? Follow-Up Appointments Added Follow Up ?Time Frame ?Comments Rosalina AVILES, Diana Worley?3-5 day: call to discuss follow up visit Patient Instructions You were admitted to the hospital for a heart failure exacerbation. You were given IV medications to help remove the extra fluid from your body. Your kidney labs worsened while you were here but havegotten significantly better. You are not yet back to your baseline. Please go to the lab one time next week to check your kidney labs to ensure your kidneys continue to improve. You were given a script for this and your PCP will follow up on this.? You will have home nursing services starting tomorrow. ?? If you develop worsening leg swelling, shortness of breath, or gain 5+ or more over a few day period, please contact your provider for next steps as you may be reaccumulating fluid. ?? Please follow up with your kidney doctor.?? Home Health Face to Face *Denotes mandatory taylor ?? *I certify that this patient is under my care and that I or an allowed non- physician working with me had a face to face encounter with the patient on this date:??11/24/2023 15:34 ?? 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 *Select the indications for the discipline/s that are being arranged for this patient. Nursing (select all that apply): [_] None [x] Medication management (reconciliation, teaching)?? [x] Chronic disease management?? [_] Wound care and treatment?? [x] Home safety evaluation [_] Administer SQ/IM/IV medications?? [_] Cath care?? [_] Drain care?? [_] Trach or GT care?? Other _ Occupation Therapy (select all that apply): [_] None [_] ADL Management [_] Fall prevention training [_] Energy conservation [_] Cognitive training Other _ Physical Therapy (select all that apply): [_] None [_] Functional mobility training [_] Home exercise program to strengthen [_] Increase ROM?? [_] Falls prevention training [_] Home maintenance program for chronic disease Other _ Speech Therapy (select all that apply): [_] None [_] Swallow evaluation and training [_] Speech and language training [_] Cognitive training to process, organize, and/or recall information Other _ ? *Homebound due to (select all that apply): [x] Inability to leave home without assistance/supervision [_] Inability to ambulate without assistance [_] Pain [_] Decreased strength and endurance [_] Unsteady gait [_] Severe SOB and fatigue [_] Impaired transfers [_] Inability to negotiate stairs [_] Limited weight bearing [_] Mental status change? *Physician Signature:?? Anuradha Hawkins ?? *By signing this, I certify that I have personally evaluated the patient and agree with the findings and recommendations as documented above. ? Results Discharge Labs BLOOD COUNT & DIFF WBC 6.4 k/mm3 ()?? 11/24/2023 05:53 RBC 2.95 m/mm3 (Low)?? 11/24/2023 05:53 Hgb 8.1 Gm/dL (Low)?? 11/24/2023 05:53 Hct 25.8 % (Low)?? 11/24/2023 05:53 MCV 87.5 femtoliters ()?? 11/24/2023 05:53 MCH 27.5 pg ()?? 11/24/2023 05:53 MCHC 31.4 g/dL (Low)?? 11/24/2023 05:53 Platelet Count 272 k/mm3 ()?? 11/24/2023 05:53 RDW-SD 58.9 femtoliters (High)?? 11/24/2023 05:53 MPV 12.5 femtoliters (High)?? 11/24/2023 05:53 Nucleated RBC (Automated) 0.0 #/100 WBC'S ()?? 11/24/2023 05:53 Abs. NRBC 0.0 k/mm3 ()?? 11/24/2023 05:53 Abs. Neut 3.4 k/mm3 ()?? 11/15/2023 00:51 Abs. Lymph 2.7 k/mm3 ()?? 11/15/2023 00:51 Abs. [place] 0.7 k/mm3 ()?? 11/15/2023 00:51 Abs. Eo 0.3 k/mm3 ()?? 11/15/2023 00:51 Abs. Baso 0.1 k/mm3 ()?? 11/15/2023 00:51 Neut % 47.5 % ()?? 11/15/2023 00:51 Lymph % 38.0 % ()?? 11/15/2023 00:51 [place] % 9.0 % ()?? 11/15/2023 00:51 Eos % 4.4 % ()?? 11/15/2023 00:51 Baso % 0.7 % ()?? 11/15/2023 00:51 Imm Gran 0.4 % ()?? 11/15/2023 00:51 Abs. Imm Gran 0.0 k/mm3 ()?? 11/15/2023 00:51 ?? CARDIAC Nt-Probnp 3391 pg/mL (High)?? 11/15/2023 09:33 High Sensitivity Troponin (HSTnT) 40 ng/L (High)?? 11/16/2023 15:53 ?? CHEM GENERAL Sodium 141 mmol/L ()?? 11/24/2023 05:53 Potassium 4.3 mmol/L ()?? 11/24/2023 05:53 Chloride 105 mmol/L ()?? 11/24/2023 05:53 Bicarbonate Level 28 mmol/L ()?? 11/24/2023 05:53 Anion Gap 8 ()?? 11/24/2023 05:53 Glucose Level 129 mg/dL (High)?? 11/24/2023 05:53 Glucose, POC 183 mg/dL (High)?? 11/24/2023 11:48 BUN 39 mg/dL (High)?? 11/24/2023 05:53 Creatinine-Blood 2.9 mg/dL (High)?? 11/24/2023 05:53 Estimated GFR Creatinine 17 ML/MIN/1.73 M2 ()?? 11/24/2023 05:53 Calcium 8.7 mg/dL ()?? 11/24/2023 05:53 Calcium, Ionized pH Corrected 1.18 mmol/L ()?? 11/18/2023 01:01 Phosphorus 4.0 mg/dL ()?? 11/18/2023 01:01 Magnesium 1.8 mg/dL ()?? 11/18/2023 01:01 Protein, Total 4.6 Gm/dL (Low)?? 11/18/2023 01:01 Albumin 2.5 Gm/dL (Low)?? 11/18/2023 01:01 AG Ratio 1.2 ()?? 11/18/2023 01:01 Alkaline Phosphatase 112 units/L (High)?? 11/18/2023 01:01 AST (SGOT) 11 units/L ()?? 11/18/2023 01:01 ALT (SGPT) 6 units/L ()?? 11/18/2023 01:01 Bilirubin, Total <0.2 mg/dL ()?? 11/18/2023 01:01 Bilirubin, Direct <0.2 mg/dL ()?? 11/15/2023 23:24 Bilirubin, Indirect Direct bilirubin is less than the measureable limit. Therefore, indirect mg/dL ()?? 11/15/2023 23:24 Iron Level 37 mcg/dL ()?? 11/15/2023 23:24 Iron Binding Capacity, Unsaturated 251 mcg/dL ()?? 11/15/2023 23:24 Iron Binding Capacity, Estimated Total 288 mcg/dL ()?? 11/15/2023 23:24 % Iron Saturation 13 % (Low)?? 11/15/2023 23:24 Ferritin Level 33 ng/mL ()?? 11/15/2023 23:24 ?? HEME OTHER Hold Blue Top SPECIMEN DISCARDED AFTER 4 HOURS. ()?? 11/15/2023 00:51 ? IMMUNOLOGY GENERAL IgG 798 mg/dL ()?? 11/21/2023 13:40 IgA 254 mg/dL ()?? 11/21/2023 13:40 IgM 74 mg/dL ()?? 11/21/2023 13:40 Free Wolf Trap Light Chains 93.07 mg/L (High)?? 11/21/2023 13:40 Free Lambda Light Chains 44.96 mg/L (High)?? 11/21/2023 13:40 Free KappaRatio 2.07 (High)?? 11/21/2023 13:40 Transferrin 223 mg/dL ()?? 11/15/2023 23:24 ? MISC. CHEMISTRY Hold Gel Top SPECIMEN DISCARDED AFTER 1 WEEK ()?? 11/21/2023 13:40 ? UA/URINALYSIS Appear/Color, Urine COLORLESS ()?? 11/21/2023 15:00 Specific Burt, Urine 1.009 ()?? 11/21/2023 15:00 pH, Urine 6.5 ()?? 11/21/2023 15:00 Albumin, Urine 3+ (Abnormal)?? 11/21/2023 15:00 Glucose, Urine NEGATIVE ()?? 11/21/2023 15:00 Ketones, Urine NEGATIVE ()?? 11/21/2023 15:00 Bilirubin, Urine NEGATIVE ()?? 11/21/2023 15:00 Hemoglobin, Urine TRACE (Abnormal)?? 11/21/2023 15:00 Nitrite, Urine NEGATIVE ()?? 11/21/2023 15:00 Leukocyte, Urine NEGATIVE ()?? 11/21/2023 15:00 Urobilinogen NORMAL mg/dL ()?? 11/21/2023 15:00 WBC's, Urine 4 /HPF ()?? 11/21/2023 15:00 RBC's, Urine 1 /HPF ()?? 11/21/2023 15:00 Bacteria HEAVY HPF (Abnormal)?? 11/18/2023 08:50 Squamous Epith <1 /HPF ()?? 11/18/2023 16:40 Transitional Epith <1 /HPF ()?? 11/18/2023 08:50 Hyaline Cast 1 LPF ()?? 11/18/2023 08:50 Mucus SLIGHT /LPF ()?? 11/18/2023 16:40 WBC Clumps SLIGHT /HPF ()?? 11/18/2023 08:50 ? URINE OTHER Creatinine, Urine Random 48.3 mg/dL ()?? 11/21/2023 15:00 Sodium, Urine Random 48 mmol/L ()?? 11/21/2023 15:00 Chloride, Urine Random <20 mmol/L ()?? 11/21/2023 15:00 Urea Nitrogen, Urine Random 255.4 mg/dL ()?? 11/21/2023 15:00 Osmolality, Urine Random 241 mOsm/kg ()?? 11/21/2023 15:00 Protein, Total Urine Random 228 mg/dL ()?? 11/21/2023 15:00 TP/Cr Ratio 4.72 (High)?? 11/21/2023 15:00 Creatinine, Urine 48.3 mg/dL ()?? 11/21/2023 15:00 Malb/Creat Ratio 2787.2 mg/Gm (High)?? 11/21/2023 15:00 Urine Creat For Micro Alb 48.3 mg/dL ()?? 11/21/2023 15:00 Micro-Albumin 1346.0 mg/L (High)?? 11/21/2023 15:00 Est Creatinine Clearance 15.99 mL/min ()?? 11/24/2023 07:09 ? Discussed case with attending physician, Dr. Silver Hawkins, PGY 4 Med-Peds 40??minutes spent on discharge * Marco SCHROEDER, Daniel: PERFORM Event Display: Patient Education/Instruction Authored Date: [id number] Inpatient Adult Discharge Instructions [place] [id number] Name: ALEXY GUZMAN : 1950 Visit: 11/15/2023 18:34:00 Current Date: 11/24/2023 17:04 Account: [id number] Inpatient Adult Discharge Instructions We would like [...] and their families. Surveys are administered by [employer] ?? If further treatment with your primary care physician or another doctor is recommended, it is important for you to keep the appointment. Call your primary care physician or return to the Emergency Department immediately if your condition worsens, fails to improve, or new symptoms develop. If you need to find a doctor, you can call [facility] Link for a referral at [phone] or toll free at [phone]) or log in to [email or web address].. ?? [facility], in keeping with [facility] guidance, no longer requires face masks for staff, patientsor visitors in most situations. Similiar to time spent indoors at other locations, there is the chance that you were exposed to repiratory viruses during your time with us (such as flu or COVID-19). If you develop symptoms concerning for a viral respiratory infection, please seek testing (and treatment if indicated) from your medical provider or home test kit. ?? You can view and manage your care through the patient portal or by using a health care bruno of your choosing. [employer] is a website that allows you to securely view your medical information including your hospital discharge summary, office visit summaries, medications and follow-up visits. You can also request appointments, renew medications, and request access to your medical information using a health care bruno of your choosing, or just ask a question. You can enroll at [email or web address] or register during your next office visit. You have been discharged from [facility], Patient Care Unit: M7. If you have any questions regarding these instructions after you leave, please call us and we will be happy to assist you. [facility] Your Care Team Attending Physician Silver AVILES, Micheal Consulting Providers Charles AVILES, Ash Discharging Providers Anuradha Hawkins DO Reason for Admission Chest pain Your Diagnosis Heart failure Pulmonary edema Hypertensive urgency Acute kidney injury Atypical chest pain RUQ pain GERD (gastroesophageal reflux disease) HTN (hypertension) Insulin dependent type 2 diabetes mellitus Acute heart failure with preserved ejection fraction Tests Performed Below is a partial list of the tests performed during your hospitalization. You may have had other tests and procedures not included in this list. Please discuss all test results with your provider. Alk Phos Basic Metabolic Panel Bilirubin Total CBC CBC w/ Differential Chloride Urine Complete Urinalysis Comprehensive Metabolic Panel Creatinine Urine ELECTROLYTES Ferritin Free Wolf Trap and Lambda Light Chains GLUCOSE POC High??Sensitivity??Troponin T Hold Blue Top Tube HOLD GEL TUBE Immunofixation Serum?-- Results Pending -- Ionized Calcium Iron + Iron Binding Capacity LFT's Magnesium Level Microalbumin Urine Osmolality Urine Phosphorus Level ProBNP Protein/Creatinine Ratio Urine Sodium Urine Transferrin Troponin T, High Sensitivity Urea Nitrogen Urine?-- Results Pending -- Urinalysis Complete Urine Chloride Urine Creatinine Urine Osmolality Urine Sodium CT Angio Abdomen CT Angio Chest CT Head/Brain W/O Contrast US Retroperitoneum Comp XR Chest 2 Views Frontal and Lat You will be contacted within 72 hours with your results. Primary Care Provider Diana Romano MD Advance Directive Health Care Proxy on File Yes - Health Care Proxy Discharge Vitals Temperature: 98.4 DegF Height: 165 cm Pulse Rate: 74 bpm Weight: 101.5 kg Respiratory Rate: 18 br/min Body Mass Index:??38.02 kg/m2??Critical Systolic Blood Pressure:??157 mm Hg??High Body surface area: 2.18 Diastolic Blood Pressure: 59 mm Hg ?? Oxygen Saturation: 98 % ?? Studies Pending All tests and labs ordered during this hospital stay have been completed unless listed below. Please discuss all pending results with your provider listed above in these instructions. ?? Add On Lab Order Immunofixation Serum Phospholipase A2 Receptor Ab Urea Nitrogen Urine What to do next Instructions From Your Doctor You were admitted to the hospital for a heart failure exacerbation. You were given IV medications to help remove the extra fluid from your body. Your kidney labs worsened while you were here but havegotten significantly better. You are not yet back to your baseline. Please go to the lab one time next week to check your kidney labs to ensure your kidneys continue to improve. You were given a script for this and your PCP will follow up on this.? You will have home nursing services starting tomorrow. ?? If you develop worsening leg swelling, shortness of breath, or gain 5+ or more over a few day period, please contact your provider for next steps as you may be reaccumulating fluid. ?? Please follow up with your kidney doctor.?? Discharge Orders You Need to Schedule the Following Appointments Follow Up with??Diana Romano MD When:??Within 3-5 day: call to discuss follow up visit Where: [address] [facility], [address] [facility] [place], [place] [address]- Discharge Medications ALEXY GUZMAN :1950 Visit Date:11/15/2023 Medications: Please continue your medications until treatment is completed or stopped by your provider. Medications not listed below should be discontinued. Discuss any questions related to medications with your provider. What How Much When Instructions Next Dose New Durable Medical Equipment (basic metabolic panel) Seeinstructions BMP to be done once between -. ICD 10: N17 Please send results to Dr. Diana Romano ?? Printed Prescription draw between 11/26-11/30 New Ferrous Sulfate (ferrous sulfate 325 mg oral enteric coated tablet) 325 Milligram Oral Sunday, Sunday and Sunday may take with food to minimize abdominal discomfort ?? Pickup at [place] [address] sunday 11/26 New NIFEdipine (NIFEdipine 60 mg oral tablet, extended release) 60 Milligram Oral Daily Pickup at [place] [address] tomorrow 11/25 Changed Carvedilol (Coreg 12.5 mg oral tablet) 12.5 Milligram Oral Twice a day Pickup at [address] 11/24 Changed Furosemide (furosemide 40 mg oral tablet) 40 Milligram Oral Twice a day Pickup at [place] [address] tomorrow 11/25 Changed Insulin Lispro (insulin lispro 100 u/ [...] 400 << Sliding Scale Comments >> ?? tomorrow 11/25 Changed Multivitamin Oral Daily tomorr11/25 Changed hydrALAZINE (hydrALAZINE 50 mg oral tablet) 1 tab(s) Oral 3 times a day Pickup at [address] 11/24 Unchanged Acetaminophen (acetaminophen 325 mg oral tablet) 975 Milligram Oral Every 6 hours may take today 11/24 Unchanged Albuterol (Albuterol (Eqv-ProAir HFA) 90 mcg/ inh inhalation aerosol) INHALE 2 PUFFS INTO THE LUNGS EVERY 6 HOURS NEEDED FOR COUGH OR WHEEZING OR SHORTNESS OF BREATH ?? may take today 11/24 Unchanged Aspirin (aspirin 81 mg oral tablet) 1 tab(s) Oral Daily tomorrow 11/25 Unchanged Atorvastatin (atorvastatin 80 mg oral tablet) 1 tab(s) Oral Daily at Bedtime tonight 11/24 Unchanged Bisacodyl (bisacodyl 10 mg rectal suppository) 1 suppository(ies) Per rectum Daily as needed for Constipation tomorrow 11/25 Unchanged Bisacodyl (bisacodyl 5 mg oral delayed release tablet) 10 Milligram Oral Daily as needed for Constipation tomorrow 11/25 Unchanged Cholecalciferol (Vitamin D3 1000 intl units oral capsule) 1 capsule Oral Daily tomorrow 11/25 Unchanged Docusate-Senna (Docusate/ Senna Tablet) 2 tab(s) Oral Daily tomorrow 11/25 Unchanged Insulin Glargine (Lantus Inj) 40 unit(s) Subcutaneous Injection Every 24 hours tonight 11/24 Unchanged Lidocaine Topical (lidocaine 5% topical film) Topically Daily tomorrow 11/25 Unchanged Methenamine (methenamine hippurate 1 gm oral tablet) 1 tab(s) Oral Twice a day tonight 11/24 Unchanged Pantoprazole (pantoprazole 40 mg oral delayed release tablet) 1 tab(s) Oral Daily tonight 11/24 Unchanged Polyethylene Glycol 3350 (MiraLax Powder) 17 gram Oral Daily tomorrow 11/25 Unchanged Potassium Chloride (Potassium Chloride (Ayn-Dqxo-Uaq 10) 10 mEq oral tablet, extended release) TAKE 1 TABLET BY MOUTH DAILY ?? tomorrow 11/25 [facility] [address], [place] [id number] [phone] ?? What How Much When Comments Stop Taking amiODARONE (amiodarone 200 mg oral tablet) 200 Milligram Oral Twice a day Stop Taking Amlodipine (amLODIPine 5 mg oral tablet) TAKE 1 TABLET BY MOUTH TWICE DAILY ?? Stop Taking Clopidogrel (clopidogrel 75 mg oral tablet) 1 tab(s) Oral Daily Stop Taking Clopidogrel (clopidogrel 75 mg oral tablet) TAKE 1 TABLET BY MOUTH DAILY ?? Stop Taking Heparin (Heparin Inj) 5,000 unit(s) Subcutaneous Injection 3 times a day Stop Taking Lactulose (lactulose 10 gm/ 15 ml oral syrup) 30 Milliliter Oral Daily Stop Taking liraglutide (Victoza 18 mg/ 3 mL subcutaneous solution) 1.8 Milligram Subcutaneous Injection Daily Stop Taking Losartan (losartan 50 mg oral tablet) 1 tab(s) Oral Daily Stop Taking Oxycodone (oxyCODONE 5 mg oral tablet) 0.5 tab(s) Oral Every 4 hours as needed for Pain , Moderate Stop Taking Remove Patch Test Results Below is a partial list of the most recent Laboratory test results done prior to this discharge. You may have had other tests and procedures not included in this list. Please discuss all test resultswith your provider. Est Creatinine Clearance - 15.99 mL/min (11/24/2023) Alk Phos (11/16/2023) ???Alkaline Phosphatase - 129 units/L Basic Metabolic Panel (11/24/2023) ???Sodium - 141 mmol/L???Potassium - 4.3 mmol/L???Chloride - 105 mmol/L???Bicarbonate Level - 28 mmol/L???Anion Gap - 8???Glucose Level - 129 mg/dL???BUN - 39 mg/dL???Creatinine-Blood - 2.9 mg/dL???Estimated GFR Creatinine - 17 ML/MIN/1.73 M2???Calcium - 8.7 mg/dL Bilirubin Total (11/16/2023) ???Bilirubin, Total - 0.2 mg/dL CBC (11/24/2023) ???WBC - 6.4 k/mm3???RBC - 2.95 m/mm3???Hgb - 8.1 Gm/dL???Hct - 25.8 %???MCV - 87.5 femtoliters???MCH - 27.5 pg???MCHC - 31.4 g/dL???Platelet Count - 272 k/mm3???RDW-SD - 58.9 femtoliters???MPV - 12.5 femtoliters???Nucleated RBC (Automated) - 0.0 #/100 WBC'S???Abs. NRBC - 0.0 k/mm3 CBC w/ Differential (11/15/2023) ???WBC - 7.2 k/mm3???RBC - 3.09 m/mm3???Hgb - 8.4 Gm/dL???Hct - 27.1 %???MCV - 87.7 femtoliters???MCH - 27.2 pg???MCHC - 31.0 g/dL???Platelet Count - 263 k/mm3???RDW-SD - 58.7 femtoliters???MPV - 11.4 femtoliters???Nucleated RBC (Automated) - 0.0 #/100 WBC'S???Abs. NRBC - 0.0 k/mm3???Abs. Neut - 3.4 k/mm3???Abs. Lymph - 2.7 k/mm3???Abs. [place] - 0.7 k/mm3???Abs. Eo - 0.3 k/mm3???Abs. Baso - 0.1 k/mm3???Neut % - 47.5 %???Lymph % - 38.0 %???[place] % - 9.0 %???Eos % - 4.4 %???Baso % - 0.7 %???Imm Gran- 0.4 %???Abs. Imm Gran - 0.0 k/mm3 Chloride Urine (11/21/2023) ? ?Chloride, Urine Random - <20 mmol/L Complete Urinalysis (11/18/2023) ???Appear/Color, Urine - LIGHT YELLOW???Specific Burt, Urine - 1.018???pH, Urine - 6.5???Albumin, Urine - 3+???Glucose, Urine - 3+???Ketones, Urine - NEGATIVE???Bilirubin, Urine - NEGATIVE???Hemoglobin, Urine - 1+???Nitrite, Urine - NEGATIVE???Leukocyte, Urine - 2+???Urobilinogen - NORMAL???WBC's, Urine - 106 /HPF? ?RBC's, Urine - 3 /HPF? ?Squamous Epith - <1 /HPF? ?Mucus - SLIGHT Comprehensive Metabolic Panel (11/18/2023) ???Sodium - 141 mmol/L???Potassium - 3.6 mmol/L???Chloride - 108 mmol/L???Bicarbonate Level - 25 mmol/L???Anion Gap - 8???Glucose Level - 187 mg/dL???BUN - 29 mg/dL???Creatinine-Blood - 3.2 mg/dL???Estimated GFR Creatinine - 15 ML/MIN/1.73 M2???Calcium - 7.7 mg/dL???Protein, Total - 4.6 Gm/dL???Albu min - 2.5 Gm/dL???AG Ratio - 1.2???Alkaline Phosphatase - 112 units/L???AST (SGOT) - 11 units/L???ALT (SGPT) - 6 units/L? ?Bilirubin, Total - <0.2 mg/dL Creatinine Urine (11/21/2023) ???Creatinine, Urine Random - 48.3 mg/dL ELECTROLYTES (11/15/2023) ???Sodium - 145 mmol/L???Potassium - 3.4 mmol/L???Chloride - 109 mmol/L???Bicarbonate Level - 28 mmol/L???Anion Gap - 8 Ferritin (11/15/2023) ???Ferritin Level - 33 ng/mL Free Wolf Trap and Lambda Light Chains (11/21/2023) ???Free Wolf Trap Light Chains - 93.07 mg/L???Free Lambda Light Chains - 44.96 mg/L???Free Wolf Trap\LambdaRatio - 2.07 GLUCOSE POC (11/24/2023) ???Glucose, POC - 183 mg/dL High??Sensitivity??Troponin T (11/15/2023) ???High Sensitivity Troponin (HSTnT) - 37 ng/L Hold Blue Top Tube (11/15/2023) ???Hold Blue Top - SPECIMEN DISCARDED AFTER 4 HOURS. HOLD GEL TUBE (11/21/2023) ???Hold Gel Top - SPECIMEN DISCARDED AFTER 1 WEEK Ionized Calcium (11/18/2023) ???Calcium, Ionized pH Corrected - 1.18 mmol/L Iron + Iron Binding Capacity (11/15/2023) ???Iron Level - 37 mcg/dL???Iron Binding Capacity, Unsaturated - 251 mcg/dL???Iron Binding Capacity, Estimated Total - 288 mcg/dL???% Iron Saturation - 13 % LFT's (11/15/2023) ???Protein, Total - 5.2 Gm/dL???Albumin - 2.6 Gm/dL???Alkaline Phosphatase - 122 units/L???AST (SGOT) - 14 units/L? ?ALT (SGPT) - 13 units/L? ?Bilirubin, Total - 0.2 mg/dL? ?Bilirubin, Direct - <0.2 mg/dL???Bilirubin, Indirect - Direct bilirubin is less than the measureable limit. Therefore, indirect Magnesium Level (11/18/2023) ???Magnesium - 1.8 mg/dL Microalbumin Urine (11/21/2023) ???Malb/Creat Ratio - 2787.2 mg/Gm???Urine Creat For Micro Alb - 48.3 mg/dL???Micro-Albumin - 1346.0 mg/L Osmolality Urine (11/21/2023) ???Osmolality, Urine Random - 241 mOsm/kg Phosphorus Level (11/18/2023) ???Phosphorus - 4.0 mg/dL ProBNP (11/15/2023) ???Nt-Probnp - 3391 pg/mL Protein/Creatinine Ratio Urine (11/21/2023) ???Protein, Total Urine Random - 228 mg/dL???TP/Cr Ratio - 4.72???Creatinine, Urine - 48.3 mg/dL Sodium Urine (11/21/2023) ???Sodium, Urine Random - 48 mmol/L Transferrin (11/15/2023) ???Transferrin - 223 mg/dL Troponin T, High Sensitivity (11/16/2023) ???High Sensitivity Troponin (HSTnT) - 40 ng/L Urinalysis Complete (11/21/2023) ???Appear/Color, Urine - COLORLESS???Specific Burt, Urine - 1.009???pH, Urine - 6.5???Albumin, Urine - 3+???Glucose, Urine - NEGATIVE???Ketones, Urine - NEGATIVE???Bilirubin, Urine - NEGATIVE???Hemoglobin, Urine - TRACE???Nitrite, Urine - NEGATIVE???Leukocyte, Urine - NEGATIVE???Urobilinogen - NORMAL???WBC's, Urine - 4 /HPF???RBC's, Urine - 1 /HPF Urine Chloride (11/18/2023) ? ?Chloride, Urine Random - <20 mmol/L Urine Creatinine (11/18/2023) ???Creatinine, Urine Random - 92.6 mg/dL Urine Osmolality (11/18/2023) ???Osmolality, Urine Random - 283 mOsm/kg Urine Sodium (11/18/2023) ???Sodium, Urine Random - 21 mmol/L Allergies (NKA means No Known Allergies) NKA Problems Active Problems??(11) Atypical chest pain?? Depression?? Fall?? GERD (gastroesophageal reflux disease)?? HTN (hypertension)?? Hypercholesterolemia?? Insulin dependent type 2 diabetes mellitus?? Knee pain, left?? Neuropathy?? Obese class II?? Retinopathy?? Education Materials Below is the list of Educational Leaflet Providered with your Discharge Instructions. Nifedipine Extended Release Oral Tablet?? Hydralazine Oral Tablet?? Carvedilol Oral Tablet?? Furosemide Oral Tablet?? Ferrous Sulfate Delayed Release Oral Tablet?? Diabetes and Heart Disease?? Heart Failure: Tracking Your Weight?? Heart Failure: Making Changes to Your Diet?? Discharge Instructions for Heart Failure?? Valuables and Belongings I fully understand and agree that [facility] accepts no responsibility for all my personal [...] patient Date for Pt to Sign Valuables/Belongings: 11/16/23 19:08:00 ?? Other Discharge Information ? Case Management Discharge Plan?? Discharge Plan?? Discharge Agency Information?? Discharge Level of Care at Discharge: Homehealth/VNA Agency [employer] #1: Intake Discharge Rx Program: Discharge Prescription Program Service Categories #1: Custodial Discharge VNA/Hospice/Home Care: [facility] [phone] Service Comments #1: A nurse will call you to arrange a visit with you at your home. If you do not hear from agency, please call them. ?? Pulmonary Rehab Status?? Pulmonary Rehab Discharge Status?? Respiratory Rate: 18 br/min ? Common Emergency Awareness Tips IS IT A [...] are strongly encouraged to quit. Please call [facility] [employer] Link at [phone] or [phone] or log in to [email or web address] for referrals to smoking cessation programs. ?? 989 Suicide & Crisis Lifeline is available 11/06 if you or someone you know needs to find a reason to keep living. By calling 641 you'll be connected to a skilled, trained counselor at a crisis center in your area. INPATIENT DISCHARGE INSTRUCTIONS SIGNATURE PAGE MACALEXY Location:[facility] Registration Date and Time:11/15/2023 18:34 EST Primary Care Physician: Rosalina AVILES, Diana Worley, Attending Physician: Silver AVILES [place], I ALEXY GUZMAN, have received the above patient education materials/instructions and have verbalized understanding. If ambulance or transport services are being used I further acknowledge being givena choice of service. ?? If you need to contact me, please call me at this number: . Patient/Bench Scientist Name: Patient/Bench Scientist Signature: Relationship to Patient: Witness Name/Signature: Date: * Daniel Lara RN: PERFORM Event Display: Patient Education Leaflets Authored Date: [id number] Nifedipine Extended Release Oral Tablet ?? Nifedipine Extended Release Oral Tablet Brands: Adalat Uses This medicine is used for the following purposes: ??? angina ??? high blood pressure ??? Raynaud's disease ?? Instructions Swallow the medicine without crushing or chewing it. Take the medicine on an empty stomach. Do not eat or drink for 1 hour after taking this medicine. This medicine will work best if you take it at about the same time every day. Keep the medicine at room temperature. Avoid heat and direct light. Avoid grapefruit and grapefruit juice while on this medicine. It is important that you keep taking [...] about all medicines taken. Include prescription and wwhm-bbb-bfltwdt medicines, vitamins, and herbal medicines. Speak with your doctor or pharmacist before starting or stopping any medicine. ?? Cautions Tell your doctor and pharmacist if you ever had an allergic reaction to a medicine. Do not use the medication any more than instructed. This medicine may cause dizziness or fainting. Do not stand or sit up quickly. Your ability to stay alert or to react quickly may be impaired by this medicine. Do not drive or operate machinery until you know how this medicine will affect you. Please check with your doctor before drinking alcohol while on this medicine. Tell the doctor or pharmacist if you are , planning to be , or . Do not share this medicine with anyone who has not been prescribed this medicine. ?? Side Effects The following is a list of some common side effects from this medicine. Please speak with your doctor about what you should do if you experience these or other side effects. ??? constipation ??? dizziness ??? swelling of the legs, feet, and hands ??? feeling of heat or flushing ??? headaches ??? low blood pressure ??? muscle cramps Call your doctor or get medical help right away if you notice any of these more serious side effects: ??? rapid heartbeat A few people may have an allergic reaction to this medicine. Symptoms can include difficulty breathing, skin rash, itching, swelling, or severe dizziness. If you notice any of these symptoms, seek medical help quickly. ?? Extra Please speak with your doctor, nurse, or pharmacist if you have any questions about this medicine. ?? [email or web address]/fdbpem/2010 IMPORTANT NOTE: This document tells you briefly how to take your medicine, but it does not tell youall there is to know about it. Your doctor or pharmacist may give you other documents about your medicine. Please talk to them if you have any questions. Always follow their advice. There is a more complete description of this medicine available in Gabonese. Scan this code on your smartphone or tablet or use the web address below. You can also ask your pharmacist for a printout. If you have any questions, please ask your pharmacist. The display and use of this drug information is subject to Terms of Use. Copyright(c) 2022 [employer]. ?? [employer]. All rights reserved. This information is not intended as a substitute for professional medical care. Always follow your healthcare professional's instructions. ?? * Daniel Lara RN: PERFORM Event Display: Patient Education Leaflets Authored Date: [id number] Hydralazine Oral Tablet ?? 05667-09 Hydralazine Oral Tablet Uses This medicine is used for the following purposes: ??? heart failure ??? high blood pressure ?? Instructions This medicine may be taken with or without food. Keep the medicine at room temperature. Avoid [...] not take 2 doses at one time. Tell your doctor and pharmacist about all your medicines. Include prescription and xpfv-per-vueeehpptjpoxfwj, vitamins, and herbal medicines. Do not suddenly stop taking this medicine. Check with your doctor before stopping. ?? Cautions Tell your doctor and pharmacist if you ever had an allergic reaction to a medicine. Do not use the medication any more than instructed. This medicine may cause dizziness or fainting, especially after exercising or in hot weather. Be very careful when standing or sitting up quickly. Your ability to stay alert or to react quickly may be impaired by this medicine. Do not drive or operate machinery until you know how this medicine will affect you. Please check with your doctor before drinking alcohol while on this medicine. Contact your doctor if you notice a change in the amount or darkening of your urine. Tell the doctor or pharmacist if you are , planning to be , or . Do not start or stop any other medicines without first speaking to your doctor or pharmacist. Do not share this medicine with anyone who has not been prescribed this medicine. ?? Side Effects The following is a list of some common side effects from this medicine. Please speak with your doctor about what you should do if you experience these or other side effects. ??? decreased appetite ??? diarrhea ??? dizziness ??? headaches ??? rapid heartbeat ??? nausea and vomiting Call your doctor or get medical help right away if you notice any of these more serious side effects: ??? chest pain ??? fainting ??? numbness or tingling in hands and feet ??? unusual or unexplained tiredness or weakness ??? blood in urine A few people may have an allergic reaction to this medicine. Symptoms can include difficulty breathing, skin rash, itching, swelling, or severe dizziness. If you notice any of these symptoms, seek medical help quickly. ?? Extra Please speak with your doctor, nurse, or pharmacist if you have any questions about this medicine. ?? [email or web address]/fdbpem/35 IMPORTANT NOTE: This document tells you briefly how to take your medicine, but it does not tell youall there is to know about it. Your doctor or pharmacist may give you other documents about your medicine. Please talk to them if you have any questions. Always follow their advice. There is a more complete description of this medicine available in Gabonese. Scan this code on your smartphone or tablet or use the web address below. You can also ask your pharmacist for a printout. If you have any questions, please ask your pharmacist. The display and use of this drug information is subject to Terms of Use. Copyright(c) 2022 [employer]. ?? [employer]. All rights reserved. This information is not intended as a substitute for professional medical care. Always follow your healthcare professional's instructions. ?? * Daniel Lara RN: PERFORM Event Display: Patient Education Leaflets Authored Date: [id number] Carvedilol Oral Tablet ?? [address] Carvedilol Oral Tablet Brands: Coreg Uses This medicine is used for the following purposes: ??? heart attack ??? heart failure ??? high bloodpressure ??? irregular heart beat ??? prevent bleeding ?? Instructions Take the medicine with food. This medicine will work best if you take it at about the same time every day. Store at room temperature away from heat, light, and moisture. Do not keep in the bathroom. It is important that you keep taking [...] about all medicines taken. Include prescription and ynla-bpw-arhqcir medicines, vitamins, and herbal medicines. Speak with your doctor or pharmacist before starting or stopping any medicine. Tell your doctor if symptoms do not get better or if they get worse. If you have diabetes, this medicine may hide some signs of low blood sugar, such as fast heartbeat.Check your blood sugar regularly and for other signs of low blood sugar. Symptoms of low blood sugar may include nausea, shaking, sweating, cold skin, fast heartbeat, hunger, and irritability. If you need to stop this medicine, your doctor may wish to gradually reduce the dosage before stopping. Keep all appointments for medical exams and tests while on this medicine. ?? Cautions Tell your doctor and pharmacist if you ever had an allergic reaction to a medicine. Some patients with weak hearts may have worsening of symptoms. If you notice difficulty breathing, weight gain, or swelling of your legs or ankles, let your doctor know right away. Do not use the medication any more than instructed. Your ability to stay alert or to react quickly may be impaired by this medicine. Do not drive or operate machinery until you know how this medicine will affect you. Please check with your doctor before drinking alcohol while on this medicine. It is unknown if this medicine passes into breast milk. Ask your doctor before . This medicine can hurt a new baby [...] experience these or other side effects. ??? diarrhea ??? dizziness or drowsiness ??? slow heartbeat ??? impotence ??? lightheadedness Call your doctor or get medical help right away if you notice any of these more serious side effects: ??? swelling of the legs, feet, and hands ??? lack of energy and tiredness ??? cold hands or feet ??? signs of kidney damage (such as change in urine color or bubbly urine) ??? shortness of breath ??? sudden or unexplained weight gain A few people may have an allergic reaction to this medicine. Symptoms can include difficulty breathing, skin rash, itching, swelling, or severe dizziness. If you notice any of these symptoms, seek medical help quickly. ?? Extra Please speak with your doctor, nurse, or pharmacist if you have any questions about this medicine. ?? [email or web address] IMPORTANT NOTE: This document tells you briefly how to take your medicine, but it does not tell youall there is to know about it. Your doctor or pharmacist may give you other documents about your medicine. Please talk to them if you have any questions. Always follow their advice. There is a more complete description of this medicine available in Gabonese. Scan this code on your smartphone or tablet or use the web address below. You can also ask your pharmacist for a printout. If you have any questions, please ask your pharmacist. The display and use of this drug information is subject to Terms of Use. Copyright(c) 2022 [employer]. ?? [employer]. All rights reserved. This information is not intended as a substitute for professional medical care. Always follow your healthcare professional's instructions. ?? * Event Display: Provider Clarification Note Please click on pdf link to open report Consult note * Matty Joel MD: PERFORM, MODIFY, SIGN, VERIFY Event Display: Consultation Note Authored Date: Patient: ALEXY GUZMAN Age: 72 years Sex: Female : 1950 Associated Diagnoses: None Author: Matty Joel MD [facility]patient [facility] Consultation Note Requesting Provider: Dr Mills Reason for Consult: JERZY History of Present Illness Ms. 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 In the ED BP found to be as high as 246 systolics. proBNP 3391, troponin normal. CXR small/trace pleural effusions, EKG non-ischemic. She was given home meds, hydralazine, labetalol, and Lasix with BP improvement. Course complicated by JERZY, currently monitoring Cr, BP and volume status. Pt was presumed to have some volume overload and was diuresed with lasix 40mg IV daily for 3 days. She also underwent CT contrast 11/15/23. Review of Systems Constitutional: No weight loss, fever, chills, weakness or fatigue. HEENT: No visual loss, blurred vision, double vision or yellow sclera. No hearing loss, sneezing, congestion, runny nose or sore throat. Skin: No rash or itching. Cardiovascular: No chest pain, chest pressure or chest discomfort. No palpitations or pedal edema. Respiratory: No shortness of breath, cough or sputum production. Gastrointestinal: Negative for nausea, vomiting & diarrhea. No abdominal pain or blood in stool. Genitourinary: No burning micturition. No urinary frequency or incontinence. Neurologic: No headache, dizziness, syncope, unilateral weakness, ataxia Musculoskeletal: No muscle pain, back pain, joint pain or stiffness. Hematologic: No bleeding or bruising. Lymphatics: No enlarged lymph nodes. Psychiatric: No depression or anxiety. Endocrine: No reports of sweating. No cold or heat intolerance. No polyuria or polydipsia. Health Status Allergies: Allergies (Active and Proposed Allergies Only) NKA (Severity: Unknown severity, Onset: Unknown) Past Medical History: Atypical chest pain Depression Fall GERD (gastroesophageal reflux disease) HTN (hypertension) Hypercholesterolemia Insulin dependent type 2 diabetes mellitus Knee pain, left Neuropathy Obese class II Retinopathy Medications: Acetaminophen (acetaminophen 325 mg oral tablet) 975 Milligram By Mouth Every 6 hours Albuterol (Albuterol (Eqv-ProAir HFA) 90 mcg/inh inhalation aerosol) INHALE 2 PUFFS INTO THE LUNGS EVERY 6 HOURS NEEDED FOR COUGH OR WHEEZING OR SHORTNESS OF BREATH Aspirin (aspirin 81 mg oral tablet) 1 tab(s) 81 Milligram By Mouth Daily Atorvastatin (atorvastatin 80 mg oral tablet) 1 tab(s) 80 Milligram By Mouth Daily at bedtime Bisacodyl (bisacodyl 10 mg rectal suppository) 1 suppository(ies) 10 Milligram Rectally Daily as needed Constipation Bisacodyl (bisacodyl 5 mg oral delayed release tablet) 10 Milligram By Mouth Daily as needed Constipation Carvedilol (Coreg 3.125 mg oral tablet) 3.125 Milligram 1 tablet By Mouth 2 times a day Cholecalciferol (Vitamin D3 1000 intl units oral capsule) 1 capsule 1,000 International Unit By Mouth Daily Docusate-Senna (Docusate/Senna Tablet) 2 tab(s) By Mouth Daily Emollients, Topical (Vashe Topical Solution) 475 Milliliter Topically Every 12 hours Furosemide (Lasix 20 mg oral tablet) 20 Milligram 1 tablet By Mouth 2 times a day Heparin (Heparin Inj) 1 Milliliter 5,000 unit(s) Subcutaneous Injection 3 times a day Insulin Glargine (Lantus Inj) 0.4 Milliliter 40 unit(s) Subcutaneous Injection Every 24 hours Insulin Lispro (Insulin LISPRO Inj) 0.06 Milliliter 6 unit(s) Subcutaneous Injection 3 times a day before meals Insulin Lispro (insulin lispro 100 u/ml subcutaneous injection) 2-10 units Subcutaneous Injection 3times a day before meals << Sliding Scale Comments >>120 - 169 2 units Call if less than [id number] [phone] 4 units 220 - 269 6 units 270 - 319 8 units 320 - 369 10 units Call if greater than 400<< Sliding Scale Comments >> Lidocaine Topical (lidocaine 5% topical film) Topically Daily liraglutide (Victoza 18 mg/3 mL subcutaneous solution) 1.8 Milligram Subcutaneous Injection Daily Losartan (losartan 50 mg oral tablet) 50 Milligram 1 tablet By Mouth Daily Methenamine (methenamine hippurate 1 gm oral tablet) 1 tab(s) 1 gram By Mouth 2 times a day Multivitamin By Mouth 2 times a day Pantoprazole (pantoprazole 40 mg oral delayed release tablet) 1 tab(s) 40 Milligram By Mouth Daily Polyethylene Glycol 3350 (MiraLax Powder) 1 pack/packet 17 gram By Mouth Daily Social History: Tobacco Details: Never smoker Family History: Mother: Diabetes mellitus type II; Heart attack Father: Diabetes mellitus type II; Heart attack Physical Examination Temperature 97.1 (13:45) Systolic Blood Pressure 155 (14:56) Diastolic Blood Pressure 58 (14:56) Pulse 64 (13:45) SpO2 97 (13:45) Respiratory Rate 19 (13:45) General: No acute distress HEENT: Dry MMs CV: Regular rate and rhythm. No murmurs, gallops, rubs Respiratory: All taylor clear to auscultation bilaterally. No wheezes, rales, rhonchi Abdominal: Soft, nontender. Bowel sounds noted : No suprapubic tenderness Extremities: No lower extremity edema. Neuro: AAO x3. Results Review General results Today's results 11/18/2023 8:50 EST Appear/Color, Urine LIGHT YELLOW Specific Burt, Urine 1.020 pH, Urine 6.5 Albumin, Urine 4+ Glucose, Urine 2+ Ketones, Urine NEGATIVE Bilirubin, Urine NEGATIVE Hemoglobin, Urine TRACE Nitrite, Urine NEGATIVE Leukocyte, Urine 2+ Urobilinogen NORMAL mg/dL WBC's, Urine 98 /HPF H RBC's, Urine 2 /HPF Bacteria HEAVY HPF Squamous Epith <1 /HPF Transitional Epith <1 /HPF Hyaline Cast 1 LPF Mucus SLIGHT /LPF WBC Clumps SLIGHT /HPF Creatinine, Urine Random 99.3 mg/dL Sodium, Urine Random 22 mmol/L 11/18/2023 1:01 EST WBC 6.7 k/mm3 RBC 2.85 m/mm3 L Hgb 7.8 Gm/dL L Hct 24.5 % L MCV 86.0 femtoliters MCH 27.4 pg MCHC 31.8 g/dL L Platelet Count 250 k/mm3 RDW-SD 57.2 femtoliters H MPV 12.2 femtoliters Nucleated RBC (Automated) 0.0 #/100 WBC'S Abs. NRBC 0.0 k/mm3 Sodium 141 mmol/L Potassium 3.6 mmol/L Chloride 108 mmol/L H Bicarbonate Level 25 mmol/L Anion Gap 8 Glucose Level 187 mg/dL H BUN 29 mg/dL H Creatinine-Blood 3.2 mg/dL H Estimated GFR Creatinine 15 ML/MIN/1.73 M2 Calcium 7.7 mg/dL L Calcium, Ionized pH Corrected 1.18 mmol/L Phosphorus 4.0 mg/dL Magnesium 1.8 mg/dL Protein, Total 4.6 Gm/dL L Albumin 2.5 Gm/dL L AG Ratio 1.2 Alkaline Phosphatase 112 units/L H AST (SGOT) 11 units/L ALT (SGPT) 6 units/L Bilirubin, Total <0.2 mg/dL Abd/Pelvis CT Adrenal glands: Normal. Kidneys and ureters: No hydronephrosis, stones, or suspicious masses. Impression and Plan Ms. 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 1. JERZY on CKD BL Cr 1.5mg/dL Cr this admission on the rise to 3.2mg/dL, non-oliguric. JERZY is in the setting of over-diuresis leading to pre-renal azotemia. Patient also received CT contrast 11/15, during a time where tubular flow rate was reduced. This likely led to retained contrast,affarent vasoconstriction and tubular injury. U/A shows Hyaline on urine sediment Fena is 0.5% patient does not have any edema. No evidence of obstruction on imaging. plan; - Bladder scans q shift - LR at 125cc/hr x 500cc total - stop diuretics - hold Losartan - renal panel daily - avoid further IV contrast. Thank you for the courtesy of this consult, RTANE will continue monitoring the patient along with you please do not hesitate to call us with any further questions Matty Joel M.D. [facility] [address] , [address] Available by [facility] * Matty Joel MD: PERFORM, SIGN, VERIFY Event Display: Consultation Note Authored Date: Patient: ALEXY GUZMAN Age: 72 years Sex: Female : 1950 Associated Diagnoses: None Author: Marycruz AVILES, Matty [facility] Progress Note Interval History JERZY consult urine labs ordered full consult to follow * Micheal Washington MD: PERFORM, SIGN, VERIFY Event Display: Consultation Note Authored Date: [id number] Patient: ALEXY GUZMAN Age: 72 years Sex: Female : 1950 Associated Diagnoses: None Author: Micheal Washington MD History of Present Illness Mrs. Guzman is a 72-year-old female with past medical history of insulin- dependent diabetes mellitus, systemic hypertension, atypical chest pain, chronic edema, obesity and strong family history of coronary artery disease. She was seen in the office in January 2023. ??She had been having worsening chest pain and shortness of breath. ??She had a cardiac PET and was found to have left circumflex artery ischemia. ??At her follow-up with me these findings were discussed and she was submitted for a left heart catheterization. 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 ??Given these findings she was submitted for CABG. ??On March 02, 2023 she underwent a two-vessel coronary artery bypass grafting with GRIMM to LAD and SVG to R SANJANA. ??She did have postoperative hypotension and amlodipine was stopped as well is carvedilol being decreased. ??She was discharged on aspirin and Plavix as well as amiodarone prophylactics. Patient has been followed for the past few months with diuretic adjustments due to variable renal function and LE edema. Has had increased swelling recently chest pain and further increases in blood pressures. As such our triage nursed advised ED evaluation. Patient BP current 190s-200. MAXWELL, LE edema. No cough fevers chills Review of Systems ROS: pertinent as per HPI all other systems reviewed and negative . Health Status Allergies: Allergic Reactions (All) NKA Current Medications: (Selected) Inpatient Medications Ordered Bisacodyl Supp: 10 mg, Suppository, Rectally, Daily, PRN for Constipation, Routine, 11/15/23 23:38:00 EST Coreg 6.25 mg oral tablet: 6.25 mg, Tablet, By Mouth, 2 times a day, Routine, 11/15/23 23:38:00 EST Insulin LISPRO Sliding Scale: 2-10 units, Injection, Subcutaneous Injection, 3 times a day before meals, Routine, 11/16/23 7:00:00 EST Lantus Inj: 40 units, Injection, Subcutaneous Injection, Every 24 hours, Routine, 11/16/23 0:00:00 EST MiraLax Powder: 17 Gm, Powder, By Mouth, Daily, Routine, 11/16/23 9:00:00 EST Vashe Topical Solution: 475 mL, Solution, Topically, Apply to Other, Every 12 hours, Routine, 11/16/23 0:00:00 EST Vitamin D3 1000 intl units oral capsule: 1,000 International_Units, Tablet, By Mouth, Daily, Routine, 11/16/23 9:00:00 EST acetaminophen 325 mg oral tablet: 975 mg, Tablet, By Mouth, Every 6 hours, Routine, 11/16/23 0:00:00 EST albuterol CFC free 90 mcg/inh inhalation aerosol: 180 mcg, 2 puffs, Inhaler, Inhalation, Every 4 hours, PRN for Wheezing/Shortness of Breath, Routine, 11/15/23 23:38:00 EST aspirin 81 mg oral delayed release tablet: 81 mg, EC Tablet, By Mouth, Daily, STAT, 11/15/23 13:45:00 EST atorvastatin 80 mg oral tablet: 80 mg, Tablet, By Mouth, Daily at bedtime, Routine, 11/15/23 23:38:00 EST hydrALAZINE 25 mg oral tablet: 50 mg, Tablet, By Mouth, 3 times a day, EMMY, 11/16/23 12:21:00 EST hydrALAZINE Inj: 5 mg, Injection, IV Push Slowly, Once, EMMY, 11/16/23 12:21:00 EST, Stop date 11/16/23 12:21:00 EST losartan 50 mg oral tablet: 50 mg, Tablet, By Mouth, Daily, Routine, 11/16/23 9:00:00 EST pantoprazole 40 mg oral delayed release tablet: 40 mg, EC Tablet, By Mouth, Daily, Indicated for: GERD, Routine, 11/16/23 9:00:00 EST Documented Medications Documented Albuterol (Eqv-ProAir HFA) 90 [...] is for a schedule II opioid drug. Lasix 20 mg oral tablet: 20 mg, 1, tablet, By Mouth, 2 times a day, # 30 tablet, Refills 0, Maintenance, 11/15/23 23:07:00 EST, Partial fill upon patient request if the prescription is for a scheduleII opioid drug. MiraLax Powder: 1 pack/packet = [...] Daily, 0 Refills, Maintenance, 09/15/15 9:42:37 EDT acetaminophen 325 mg oral tablet: 975 mg, [...] prescriptionis for a schedule II opioid drug. insulin lispro 100 u/ml subcutaneous injection: 2-10 units, Subcutaneous Injection, 3 times a day before meals, << Sliding Scale Comments >> 120 - 169 2 units Call if less than 100 170 - 219 4 units 220 - 269 6 units 270 - 319 8 units 320 - 369 10 units Call if greater than 400 <... lidocaine 5% topical film: Topically, Daily, 0 Refills, Maintenance, 03/08/23 15:16:00 EDT, Patch, Partial fill upon patient request if the prescription is for a schedule II opioid drug. losartan 50 mg oral tablet: 50 mg, 1, tablet, By Mouth, Daily, # 90 tablet, Refills 0, Maintenance,11/15/23 23:07:00 EST, Partial fill upon patient request if the prescription is for a schedule II opioid drug. methenamine hippurate 1 gm oral tablet: 1 tablet = 1 Gm, By Mouth, 2 times a day, 0 Refills, Maintenance, 01/12/16 13:14:06 pantoprazole 40 mg oral delayed release tablet: 1 tablet = 40 mg, By Mouth, Daily, # 30 tablet, 0 Refills, Maintenance, 12/20/22 2:40:00 EST, EC Tablet Problems: All Problems Atypical chest pain / SNOMED CT [id number] / Confirmed Depression / Confirmed Diabetes (insulin dependent) / Confirmed Elevated Cholesterol / Confirmed Fall / SNOMED CT 4476950 / Provisional GERD / Confirmed HTN / Confirmed Knee pain, left / SNOMED CT 20251272 / Provisional Morbid Obesity / Confirmed Neuropathy / SNOMED CT 6030444396 / Confirmed Obese class II / SNOMED CT 340572968637741 / Confirmed Retinopathy / SNOMED CT 6719669511 / Confirmed Resolved: Obese class II / SNOMED CT 043591104273425 Problem added by Discern Expert Resolved: Obese class II / SNOMED CT [id number] Problem added by Discern Expert Resolved: Severe obesity / SNOMED CT 6897357073 Problem added by Discern Expert Resolved: Severe obesity / SNOMED CT 8356526331 Problem added by Discern Expert Family History: Mother: Diabetes mellitus type II; Heart attack Father: Diabetes mellitus type II; Heart attack Social History Tobacco Details: Never smoker. ETOH: none. Drugs: none. Physical Examination Temperature 98.5 (12:10) Systolic Blood Pressure 207 (12:10) Diastolic Blood Pressure 77 (12:10) Pulse 66 (12:10) SpO2 100 (12:10) Respiratory Rate 16 (12:10) Gen: Very pleasant sitting up NAD HEENT: MMM no LAD unable to see neck veins ?HJR Pulm: CTAB non-labored Heart: RRR no m/g/r Abd: +BS soft NT/ND no guarding in all 4 quadrants, Extrem: no c/c/ 1+ LE edema Vasc: 2+ RP no carotid bruit Skin: no limb rash Neuro: alert oriented x 3, EOMI, UE strength symmetric Psych: Mood good Affect congruent Results Review 7 day results Labs & Documents Laboratory : LABORATORY 11/16/2023 5:53 EST WBC 5.9 k/mm3 RBC 3.01 m/mm3 L Hgb 8.1 Gm/dL L Hct 26.3 % L MCV 87.4 femtoliters MCH 26.9 pg L MCHC 30.8 g/dL L Platelet Count 257 k/mm3 RDW-SD 58.3 femtoliters H MPV 11.6 femtoliters Nucleated RBC (Automated) 0.0 #/100 WBC'S Abs. NRBC 0.0 k/mm3 Sodium 147 mmol/L H Potassium 3.6 mmol/L Chloride 111 mmol/L H Bicarbonate Level 27 mmol/L Anion Gap 9 Glucose Level 189 mg/dL H BUN 22 mg/dL Creatinine-Blood 2.1 mg/dL H Estimated GFR Creatinine 25 ML/MIN/1.73 M2 Calcium 8.1 mg/dL L 11/15/2023 23:24 EST High Sensitivity Troponin (HSTnT) 41 ng/L H 11/15/2023 9:33 EST Nt-Probnp 3,391 pg/mL H 11/15/2023 3:57 EST High Sensitivity Troponin (HSTnT) 35 ng/L H 11/15/2023 0:42 EST High Sensitivity Troponin (HSTnT) 37 ng/L H EKG Results sinus TWI laterally similar to outpatient echo from 09/2023 Impression and Plan HTN Patient remains quite hypertensive. I suspect this may be in-part due to some volume overload as well. I would recommend 40mg IV furosemide twice daily, restart 10mg amlodipine and uptitrate carvedilol as long as HR >50 as BP allows. Chest pain History of atypical chest pain though may be having some due to htn at this time. HS troponin only mildly elevated with minimal change not consistent with ACS. BP control as above. CAD Would continue ASA and statin therapy. Reasonable to check echo while here. Patient Care team information Care Team Personnel Name: Anuradha Flores RN Position: S RN Member Role: Primary Care Nurse Name: Rosalina AVILES, Diana Worley Position: Reference Physician Member Role: PCP Address: Address: [address], [address] [place] [address]- Name: Salena SCHROEDER, Slick Barlow Position: S RN Member Role: Primary Care Nurse Name: Matty Joel MD Position: S Renal MD Member Role: Lifetime Consulting Physician Address: Address: [address] [place] [address] [address] [facility] [place] [address]- Name: Sudha Kee RN Position: [facility] RN Member Role: Primary Care Nurse Name: Tita Sims RN Position: [facility] RN Member Role: Primary Care Nurse Name: Riley SCHROEDER, Krystyna Adkins Position: S RN Member Role: Primary Care Nurse Name: Min URBAN Attending Position: [facility] ED Medicine MD Name: Maki Cervantes RN Position: [facility] RN Member Role: Patient Care Provider Name: Kathy Tinajero Position: [facility] ED OA Charge Member Role: ED Associate Name: Lizbeth Maier RN Position: [facility] ED RN W/OE and Tasks Member Role: Patient Care Provider Care Team Related Persons Name: SAMMIE LEO Address: [place] [address] Name: ELIZABETH AMILCAR Address: home [address] [place] [id number]
--- OUTSIDE RECORDS SUMMARY | 2024-04-25 10:16 | XMS_ITS | Continuity of Care Document ---
Author Organization [facility] ter Address [address] [place] [id number]- Care Team Providers Care Protective Clothing Issuer Name Role Phone Rosalina AVILES, Diana D Primary Care Physician En[place] [facility] [place](s): 12/20/22 - 12/22/[address] [id number]- Encounter Diagnosis Nausea(Final) - 12/19/22 Cholecystitis(Final) - 12/19/22 Shortness of breath(Final) - 12/19/22 Unstable angina(Final) - 12/19/22 Atypical angina(Final) - 12/19/22 Vomiting(Final) - 12/19/22 Discharge Disposition: A-D/C Home Attending Physician: Hallie Romo MD Admitting Physician: Ezequiel De Los Santos DO Referring Physician: Not on Staff, Referring MD [...] vaccine, inactivated 09/24/15 Anthony rded SARS-CoV-2 mRNA (doekiuv-xmiw-inkvi) vax 06/23/22 Recorded SARS-CoV-2 (COVID-19) mRNA BNT-162b2 [...] 04/02/16 14:32:38 Start Date: 04/02/16 Status: Ordered Albuterol (Eqv-ProAir HFA) 90 mcg/inh inhalation aerosol INHALE 2 PUFFS INTO THE LUNGS EVERY 6 HOURS NEEDED FOR COUGH OR WHEEZING OR SHORTNESS OF BREATH Start Date: 12/20/22 Status: Ordered Amlodipine 5 mg, By Mouth, Daily, Maintenance, 09/15/15 9:40:51 Start Date: 09/15/15 Status: Ordered amLODIPine 5 mg oral tablet 5 mg, Tablet, By Mouth, 12/22/22 9:00:00 EST Start Date: 12/22/22 Stop Date: 12/22/22 Status: Completed aspirin 81 mg oral tablet 1 tablet = 81 mg, By Mouth, Daily, 0 Refills, Maintenance, 06/17/10 14:05:19 Start Date: 06/17/10 Status: Ordered carvedilol 6.25 mg oral tablet 6.25 mg, 1, tablet, By Mouth, 2 times a day, # 60 tablet, Refills 0, Maintenance, 12/20/22 2:42:00 EST, Partial fill upon patient request if the prescription is for a schedule II opioid drug. Start Date: 12/20/22 Status: Ordered carvedilol 6.25 mg oral tablet 6.25 mg, Tablet, By Mouth, 12/22/22 9:00:00 EST Start Date: 12/22/22 Stop Date: 12/22/22 Status: Completed Humalog 100 u/ml subcutaneous injection See Instructions, [...] EST, Injection Start Date: 09/29/18 Status: Ordered methenamine hippurate 1 gm oral tablet 1 tablet = 1 Gm, By Mouth, 2 times a day, 0 Refills, Maintenance, 01/12/16 13:14:06 Start Date: 01/12/16 Status: Ordered metroNIDAZOLE 500 mg oral tablet 1 tablet = 500 mg, By Mouth, 3 times a day, for 5 days, # 15 tablet, 0 Refills, Acute 12/27/22 10:01:00 EST, 12/22/22 10:01:00 EST, Tablet, [facility] [place] [facility], Partial fill upon patient requestif the prescription is for a schedule II opioid shyla... Start Date: 12/22/22 Stop Date: 12/27/22 Status: Ordered Multivitamin By Mouth, 2 times a day, 0 Refills, Maintenance, 09/15/15 9:44:56 Start Date: 09/15/15 Status: Ordered pantoprazole 40 mg oral delayed release tablet 1 tablet = 40 mg, By Mouth, Daily, # 30 tablet, 0 Refills, Maintenance, 12/20/22 2:40:00 EST, EC Tablet Start Date: 12/20/22 Status: Ordered simvastatin 40 mg oral tablet 40 mg, 1, tablet, By Mouth, Daily at bedtime, # 30 tablet, Refills 0, Maintenance, 12/20/22 2:42:00EST, Partial fill upon patient request if the prescription is for a schedule II opioid drug. Start Date: 12/20/22 Status: Ordered spironolactone 50 mg oral tablet 1 tablet = 50 mg, By Mouth, Daily, # 30 tablet, 0 Refills, Maintenance, 12/20/22 2:43:00 EST, Tablet, Partial fill upon patient request if the prescription is for a schedule II opioid drug. Start Date: 12/20/22 Status: Ordered Victoza 18 mg/3 mL subcutaneous solution = 1.8 mg, Subcutaneous Injection, Daily, # 9 mL, 0 Refills, Maintenance, 12/20/22 2:44:00 EST, Solution, Partial fill upon patient request if the prescription is for a schedule II opioid drug. Start Date: 2/1/23 Status: Ordered Vitamin D3 1000 intl units oral capsule 1 capsule = 1,000 International_Units, By Mouth, 0 Refills, Maintenance, 09/15/15 9:42:37 Start Date: 09/15/15 Status: Ordered Problem List Condition Confirmation Course Effective Dates Status Health [facility] Informant Atypical chest pain Confirmed Active Neuropathy Confirmed Active Obese class II Confirmed Active Retinopathy Confirmed Active Results Radiology Reports * Exam Date Time Procedure Performing Provider Status 12/21/22 1:[address] Abd/Pelvis W/ IV Contrast Only Rhonda Vance; Marlin (Verified) Notes: (CT Abd/Pelvis W/ IV Contrast Only) Reason For Exam: Other: RESULT: CT Abd/Pelvis W/ IV Contrast Only CT Chest W/ Contrast, CT Abd/Pelvis W/ IV Contrast Only INDICATION: Reason: Acute Ilana TECHNIQUE: Helical CT scan of the chest, abdomen, and pelvis with IV contrast, formatted in 3 planes. 100 cc of Omnipaque 300 was administered intravenously. This study was performed without oral contrast. Weight-based protocol was performed using automatic exposure control. CTDIvol Body: 18.90 mGy, DLP Body: 1317 mGy*cm. COMPARISON: CT angiogram chest 03/30/2016. FINDINGS: Corporate Travel Counselor view findings, lines and tubes: None. Trachea and airways: Patent without evidence of tracheal or endobronchial lesion. Lungs and pleura: Tree-in-bud opacities seen in the lower segment of the right upper lobe and in the right lower lobe. Multiple pulmonary nodules seen in the right lung new from the prior exam. Findings described in reference to series 205. * The largest nodule is in the right upper lobe abutting the major fissure and measures 1 cm (image38) * 2 mm nodule in the right upper lobe (image 44) * 7 mm nodule in the right upper lobe (image 35) * 7 mm nodule in the right upper lobe (image 41) * 6 mm nodule in the right upper lobe (image 29) * 3 mm nodule in the right upper lobe (image 24) * 7 mm nodule along the right major fissure (image 59) * 5 mm nodule in the right upper lobe (image 39) * 7 mm nodule in the right upper lobe (image 40) Given the tree-in-bud distribution/peribronchovascular distribution of these nodules are most likely infectious or inflammatory in etiology and may be related to subclinical aspiration. No effusion or pneumothorax. Mediastinum and juancho: No mass or hematoma. No mediastinal or hilar lymphadenopathy . Paratracheal lymph nodes measuring up to 6 mm in short axis are most likely reactive. Esophagus is patulous with asmall volume of debris in the midportion of the esophagus. Normal thyroid. Heart: Heart is normal in size. No pericardial effusion. Mild coronary artery calcification. Aorta: Mild vascular calcification but no aneurysm. Aortic valve calcifications. Pulmonary arteries: Normal caliber. No evidence of pulmonary embolism on this study performed without angiographic technique. Chest wall soft tissues: No acute abnormality. Diaphragm: Intact. Liver: Diffuse low-attenuation throughout the liver parenchyma consistent with hepatic steatosis. No evidence of a suspicious lesion. Gallbladder: Gallbladder is mildly distended with gallstones seen. There is also intermediate attenuation sludge. No surrounding inflammation. No significant wall thickening. Bile ducts: No biliary ductal dilation. Spleen: Normal in size. Pancreas: Atrophic pancreatic parenchyma without ductal dilatation or suspicious lesion. Adrenal glands: No nodule. Kidneys and ureters: No hydronephrosis, stone, or suspicious lesion. Bladder: No wall thickening or surrounding stranding. Reproductive organs: Status post hysterectomy. No adnexal mass. Stomach, small bowel, and large bowel: Gastric band in place. Phi angle is 65 degrees. Increase from prior when it measured 47 degrees. No evidence of obstruction or inflammation. Appendix: No evidence of acute appendicitis. Peritoneum and retroperitoneum: No ascites or pneumoperitoneum. No omental or mesenteric lesions. Lymph nodes: No enlarged lymph nodes. Blood vessels: Moderate atherosclerotic vascular calcification. No aortic aneurysm. No evidence of venous thrombosis. Abdominal and pelvic wall soft tissues: Fat-containing periumbilical hernia. Gastric band tubing and port in the ventral abdominal wall. Bones: Mild multilevel degenerative changes in the lumbar spine. Anterior bridging osteophytes seenin the thoracic spine. Multilevel facet hypertrophy of the lumbar spine. No acute osseous abnormality. IMPRESSION: 1. Gallbladder is mildly distended with gallstones. No surrounding inflammation or wall thickening to suggest acute cholecystitis. Correlate with physical exam findings. 2. Multiple pulmonary nodules seen in the right upper lobe with adjacent tree-in-bud opacities seenin the inferior portion of the right upper lobe and in the superior portion of the right lower lobe. These findings are most likely infectious or inflammatory and may be related to silent aspiration,particularly given the patulous esophagus with a small amount of dependent debris in the midesophagus. Consider follow-up CT chest in 3 months to ensure resolution. 3. Mild flattening of the gastric band with a Phi angle of 65 degrees. Similar to findings from barium swallow dated 11/17/2019 where the Phi angle measures 62 degrees. I have personally reviewed the images and I agree with this report. WSN: [id number] Ordering Physician: Lazarus Navarro Dictated By: Montserrat Moise DO Dictated Date/Time: 12/21/22 2:43 pm Reviewed By: Clemente Currie MD Signed By: Clemente Currie MD Signed Date/Time: 12/21/22 2:48 pm Transcribed By: SADIQ Transcribed Date/Time: 12/21/22 1:50 pm * Exam Date Time Procedure Performing Provider Status 12/21/22 1:[address] Chest W/ Contrast Rhonda Vance; Nava [facility] (Verified) Notes: (CT Chest W/ Contrast) Reason For Exam: Acute Ilana;Other: RESULT: CT Chest W/ Contrast CT Chest W/ Contrast, CT Abd/Pelvis W/ IV Contrast Only INDICATION: Reason: Acute Ilana TECHNIQUE: Helical CT scan of the chest, abdomen, and pelvis with IV contrast, formatted in 3 planes. 100 cc of Omnipaque 300 was administered intravenously. This study was performed without oral contrast. Weight-based protocol was performed using automatic exposure control. CTDIvol Body: 18.90 mGy, DLP Body: 1317 mGy*cm. COMPARISON: CT angiogram chest 03/30/2016. FINDINGS: Corporate Travel Counselor view findings, lines and tubes: None. Trachea and airways: Patent without evidence of tracheal or endobronchial lesion. Lungs and pleura: Tree-in-bud opacities seen in the lower segment of the right upper lobe and in the right lower lobe. Multiple pulmonary nodules seen in the right lung new from the prior exam. Findings described in reference to series 205. * The largest nodule is in the right upper lobe abutting the major fissure and measures 1 cm (image38) * 2 mm nodule in the right upper lobe (image 44) * 7 mm nodule in the right upper lobe (image 35) * 7 mm nodule in the right upper lobe (image 41) * 6 mm nodule in the right upper lobe (image 29) * 3 mm nodule in the right upper lobe (image 24) * 7 mm nodule along the right major fissure (image 59) * 5 mm nodule in the right upper lobe (image 39) * 7 mm nodule in the right upper lobe (image 40) Given the tree-in-bud distribution/peribronchovascular distribution of these nodules are most likely infectious or inflammatory in etiology and may be related to subclinical aspiration. No effusion or pneumothorax. Mediastinum and juancho: No mass or hematoma. No mediastinal or hilar lymphadenopathy . Paratracheal lymph nodes measuring up to 6 mm in short axis are most likely reactive. Esophagus is patulous with asmall volume of debris in the midportion of the esophagus. Normal thyroid. Heart: Heart is normal in size. No pericardial effusion. Mild coronary artery calcification. Aorta: Mild vascular calcification but no aneurysm. Aortic valve calcifications. Pulmonary arteries: Normal caliber. No evidence of pulmonary embolism on this study performed without angiographic technique. Chest wall soft tissues: No acute abnormality. Diaphragm: Intact. Liver: Diffuse low-attenuation throughout the liver parenchyma consistent with hepatic steatosis. No evidence of a suspicious lesion. Gallbladder: Gallbladder is mildly distended with gallstones seen. There is also intermediate attenuation sludge. No surrounding inflammation. No significant wall thickening. Bile ducts: No biliary ductal dilation. Spleen: Normal in size. Pancreas: Atrophic pancreatic parenchyma without ductal dilatation or suspicious lesion. Adrenal glands: No nodule. Kidneys and ureters: No hydronephrosis, stone, or suspicious lesion. Bladder: No wall thickening or surrounding stranding. Reproductive organs: Status post hysterectomy. No adnexal mass. Stomach, small bowel, and large bowel: Gastric band in place. Phi angle is 65 degrees. Increase from prior when it measured 47 degrees. No evidence of obstruction or inflammation. Appendix: No evidence of acute appendicitis. Peritoneum and retroperitoneum: No ascites or pneumoperitoneum. No omental or mesenteric lesions. Lymph nodes: No enlarged lymph nodes. Blood vessels: Moderate atherosclerotic vascular calcification. No aortic aneurysm. No evidence of venous thrombosis. Abdominal and pelvic wall soft tissues: Fat-containing periumbilical hernia. Gastric band tubing and port in the ventral abdominal wall. Bones: Mild multilevel degenerative changes in the lumbar spine. Anterior bridging osteophytes seenin the thoracic spine. Multilevel facet hypertrophy of the lumbar spine. No acute osseous abnormality. IMPRESSION: 1. Gallbladder is mildly distended with gallstones. No surrounding inflammation or wall thickening to suggest acute cholecystitis. Correlate with physical exam findings. 2. Multiple pulmonary nodules seen in the right upper lobe with adjacent tree-in-bud opacities seenin the inferior portion of the right upper lobe and in the superior portion of the right lower lobe. These findings are most likely infectious or inflammatory and may be related to silent aspiration,particularly given the patulous esophagus with a small amount of dependent debris in the midesophagus. Consider follow-up CT chest in 3 months to ensure resolution. 3. Mild flattening of the gastric band with a Phi angle of 65 degrees. Similar to findings from barium swallow dated 11/17/2019 where the Phi angle measures 62 degrees. I have personally reviewed the images and I agree with this report. WSN: [id number] Ordering Physician: Lazarus Navarro Dictated By: Montserrat Moise DO Dictated Date/Time: 12/21/22 2:43 pm Reviewed By: Clemente Currie MD Signed By: Clemente Currie MD Signed Date/Time: 12/21/22 2:48 pm Transcribed By: SADIQ Transcribed Date/Time: 12/21/22 1:50 pm * Exam Date Time Procedure Performing Provider Status 12/21/22 8:03 AM US Doppler Ext Lower Venous Bilat Susana Andujar; Auth (Verified) Notes: (US Doppler Ext Lower Venous Bilat) Reason For Exam: d-dimer elevated;Other: RESULT: US Doppler Ext Lower Venous Bilat US Doppler Ext Lower Venous Bilat Reason: Other:; d-dimer elevated; Clinical Question(s): Thrombosis; Order Comment: 12 20 2022 07:38:48 AIYANA Vick, will try later -MG 12 20 2022 18:37:32 AIYANA Vick, will try later -MG COMPARISON: Left lower extremity venous duplex ultrasound 09/27/2018. IMAGING TECHNIQUE: Ultrasound of the veins from the groin through the calf was performed using grayscale, color, and spectral Doppler ultrasound assessing for complete compressibility and normal flowcharacteristics. FINDINGS: RIGHT LOWER EXTREMITY: Common femoral vein: Patent. No thrombosis. Femoral vein: Patent. No thrombosis. Popliteal vein: Patent. No thrombosis. Gastrocnemius veins: The visualized portions are patent without evidence of thrombosis. Peroneal veins: The visualized portions are patent without evidence of thrombosis. Posterior tibial veins: The visualized portions are patent without evidence of thrombosis. LEFT LOWER EXTREMITY: Common femoral vein: Patent. No thrombosis. Femoral vein: Patent. No thrombosis. Popliteal vein: Patent. No thrombosis. Gastrocnemius veins: The visualized portions are patent without evidence of thrombosis. Peroneal veins: The visualized portions are patent without evidence of thrombosis. Posterior tibial veins: The visualized portions are patent without evidence of thrombosis. OTHER FINDINGS: None. IMPRESSION: No evidence of deep venous thrombosis. WSN: [id number] Ordering Physician: Cinthia Medrano Dictated By: Raleigh He MD Dictated Date/Time: 12/21/22 8:08 am Reviewed By: Raleigh He MD Signed By: Raleigh He MD Signed Date/Time: 12/21/22 8:08 am Transcribed By: SADIQ Transcribed Date/Time: 12/21/22 8:07 am * Exam Date Time Procedure Performing Provider Status 12/19/22 9:11 PM US RUQ Sudeep Karrie; Auth (Sara ified) Notes: (US RUQ) Reason For Exam: Abdominal Pain;Other: RESULT: US RUQ US RUQ HX OF PRESENT ILLNESS: chest pain; Reason: Abdominal Pain; Clinical Question(s): Cholecystitis COMPARISON: None. FINDINGS: Liver: Diffusely echogenic parenchyma. No suspicious lesion. Mildly nodular hepatic contour. Main portal vein patent with normal hepatopetal direction of flow. Gallbladder: Multiple layering gallstones with posterior acoustic shadowing. Distended gallbladder,measuring up to 4 cm in transverse diameter, with wall thickness measuring up to 0.3 cm, at the upper limits of normal. No pericholecystic fluid. Negative Garay sign. Biliary Tree: No intrahepatic or extrahepatic bile duct dilation is identified. Common duct measures: 0.5 cm. Pancreas: Obscured by overlying bowel gas. Right kidney: 11.9 cm in length. Normal parenchymal echotexture and thickness. No hydronephrosis, stone or mass. IMPRESSION: 1. Distended gallbladder with borderline wall thickening and cholelithiasis without pericholecysticfluid or sonographic Garay's sign. Findings are equivocal for diagnosis of acute cholecystitis. Ifclinical concern persists, further evaluation with HIDA scan should be considered. 2. Echogenic liver likely representing hepatic steatosis. Mildly nodular contour could indicate early cirrhotic changes. I have personally reviewed the images and I agree with this report. WSN: [id number] Ordering Physician: Maddison Jacome Dictated By: Laxmi Best MD Dictated Date/Time: 12/19/22 9:30 pm Reviewed By: Reji Benitez MD Signed By: Reji Benitez MD Signed Date/Time: 12/19/22 9:35 pm Transcribed By: SADIQ Transcribed Date/Time: 12/19/22 9:27 pm * Exam Date Time Procedure Performing Provider Status 12/19/22 4:00 PM Chest 2 Views Frontal and Lat Hal Lobo; Auth (Verified) Notes: (Chest 2 Views Frontal and Lat) Reason For Exam: Chest Pain;Other: RESULT: Chest 2 Views Frontal and Lat Chest 2 Views Frontal and Lat Hx of Present Illness: chest pain; Reason: Other:; Chest Pain; Clinical Question(s): Other: COMPARISON: 09/27/2018 FINDINGS: LINES AND TUBES: None. LUNGS AND PLEURA: Clear lungs. Normal pulmonary vascularity. No pleural effusion. No pneumothorax. HEART, MEDIASTINUM AND JUANCHO: Heart is normal in size. Normal mediastinal and hilar contour. BONES AND SOFT TISSUES: No acute abnormality. Degenerative changes of the thoracic spine with osteophytosis. IMPRESSION: No acute abnormality. WSN: [id number] Ordering Physician: Brianna Aviles Dictated By: Mariaelena Steward MD Dictated Date/Time: 12/19/22 4:11 pm Reviewed By: Mariaelena Steward MD Signed By: Mariaelena Steward MD Signed Date/Time: 12/19/22 4:11 pm Transcribed By: SADIQ Transcribed Date/Time: 12/19/22 4:07 pm Vital Signs Most recent to oldest [Reference Range]: 1 2 3 Height 167 cm (12/22/22 10:43 AM) 167 cm (12/22/22 7:45 AM) 167 cm (12/22/22 2:31 AM) Weight 110.1 kg (12/22/22 2:31 AM) 108.5 kg (12/19/22 7:57 PM) 108.5 kg (12/19/22 6:20 PM) Oxygen Saturation [94-100 %] 100 % (12/22/22 10:43 AM) 96 % (12/22/22 7:45 AM) 98 % (12/22/22 2:31 AM) Pulse Rate [55-90 bpm] 71 bpm (12/22/22 10:43 AM) 69 bpm (12/22/22 8:59 AM) 69 bpm (12/22/22 7:45 AM) Body Mass Index [18.5-24.99 kg/m2] 39.48 kg/m2 *>HHI* (12/22/22 2:31 AM) 38.9 kg/m2 *>HHI* (12/19/22 6:20 PM) Blood Pressure [90-138/55-84 mm Hg] 145/74mm Hg *H* (12/22/22 10:43 AM) 153/52mm Hg *H* (12/22/22 8:59 AM) 153/52mm Hg *H* (12/22/22 8:59 AM) Respiratory Rate [16-30 br/min] 18 br/min (12/22/22 10:43 AM) 18 br/min (12/22/22 7:45 AM) 18 br/min (12/22/22 2:31 AM) Temperature [96.8-100.4 DegF] 97.5 DegF (12/22/22 10:43 AM) 97.8 DegF (12/22/22 7:45 AM) 98.3 DegF (12/22/22 2:31 AM) Mode of Delivery (Oxygen) Room air (12/22/22 10:43 AM) Room air (12/22/22 7:45 AM) Room air (12/22/22 2:31 AM) Blood pressure sites Arm, right (12/22/22 10:43 AM) Arm, right (12/22/22 7:45 AM) Arm, right (12/22/22 2:31 AM) Temperature Route Oral (12/22/22 10:43 AM) Oral (12/22/22 7:45 AM) Oral (12/22/22 2:31 AM) Dry Weight 108.5 kg (12/19/22 7:57 PM) 108.5 kg (12/19/22 6:20 PM) 108.5 kg (12/19/22 2:18 PM) Weight Obtained Via Bed scale (12/22/22 2:31 AM) Social History Social History Type Response Smoking Status Never smoker entered on: 09/14/15 Sex History and physical note * Joanne [place]: SIGNPRABHU MD, William J: PERFORM, SIGN Cody Gamez MD: SIGN, VERIFY Cody Gamez MD: VERIFY Rio AVILES, Felisha: SIGN, MODIFY Rio AVILES, Felisha: MODIFY Event Display: History and Physical Hospital Authored Date: [id number] Patient: ALEXY GUZMAN Age: 71 years Sex: Female : 1950 Associated Diagnoses: None Author: Cody Gamez MD Admission Information Consultation requested by: Dr. Jacome Consulted physician: Dr. Pate Reason for consultation: Chololithiasis with RUQ tenderness History of Present Illness Patient is a 71-year-old female with a past medical history of peripheral neuropathy, diabetes, GERD, hypertension, depression and obesity who presented to [facility] [place] with chest pain, aspart of her work-up she had EKGs which were within normal limits, as well as a full set of labs which showed no leukocytosis electrolytes notable for elevated creatinine of 1.3 and troponins of 74, elevated, and a proBNP of 766 of note troponin up trended to 86 since her admission additionally she had LFTs performed which showed mild elevation of AST ALT and alk phos within normal T bili. Additionally a right upper quadrant ultrasound was obtained which showed mild thickening of the gallbladderwall at 0.3 cm a CBD of 1.5 cm and a distended gallbladder at 4 cm with no evidence of pericholecystic fluid and was deemed equivocal for acute cholecystitis with Cholelithiasis. Based on the findingseen on ultrasound, and now right upper quadrant tenderness a surgical consultation was placed to rule out symptomatic cholelithiasis. Upon my assessment patient was resting comfortably in bed she did not endorse any pain associated with food intake but she did report food being stuck as she does have a diagnosis of gastroparesis secondary to her diabetes. She also originally endorsed left-sided chest tenderness which now is transition to right upper quadrant tenderness. She denied any fevers chills headache dizziness nausea vomiting chest pain or shortness of breath. Past Medical History Problem list All Problems Atypical chest pain / SNOMED CT 667969109 / Confirmed Fall / SNOMED CT 9241630 / Provisional Knee pain, left / SNOMED CT 95425253 / Provisional Neuropathy / SNOMED CT 4367104484 / Confirmed Obese class II / SNOMED CT 438806434892713 / Confirmed Retinopathy / SNOMED CT 1035041454 / Confirmed Morbid Obesity / Confirmed GERD / Confirmed HTN / Confirmed Elevated Cholesterol / Confirmed Diabetes (insulin dependent) / Confirmed Depression / Confirmed Allergies Allergic Reactions (Selected) NKA Current medications (Selected) Inpatient Medications Ordered Heparin 25,000 units in 250 mL Premix 25,000 units [9 units/kg/hr] + D5%W Premixed IV 250 mL: 250 mL, Infusion, IV Infusion, 250 mL, 9.77 mL/hr, Infuse over 25.6 hr, Unless duration specified Continue until D/C'd, Routine, 12/20/22 0:00:00 EST, 108.5 kg Heparin ACS Inj: 4,000 units, Injection, IV Push, Once, Max of 4000 units, STAT, 12/19/22 23:30:00 EST, Stop date 12/19/22 23:30:00 EST Heparin Inj: 3,500 units, Injection, IV Push, Every 6 hours, For PTT result 40 to 49.9 seconds; Maxdose 10,000 units, PRN for Other, Routine, 12/20/22 0:00:00 EST Heparin Inj: 6,500 units, Injection, IV Push, Every 6 hours, For PTT result < 40 seconds; Max dose 10,000 units, PRN for Other, Routine, 12/20/22 0:00:00 EST Documented Medications Documented Amlodipine: 5 mg, By Mouth, Daily, Maintenance, 09/15/15 9:40:51 Humalog 100 u/ml subcutaneous injection: See Instructions, 3 times a day before meals, SubcutaneousInfusion/sliding scale 6-20units, 0 Refills, Maintenance, 12/02/15 11:10:42 Hydrochlorothiazide: = 25 mg, By Mouth, 0 Refills, Maintenance, 09/15/15 9:41:17 Multivitamin: By Mouth, 2 times a day, 0 Refills, Maintenance, 09/15/15 9:44:56 Nexium 40 mg oral enteric coated capsule: 1 capsule = 40 mg, By Mouth, Daily, 0 Refills, Maintenance, 12/02/15 11:11:13 Vitamin D3 1000 intl units oral capsule: 1 capsule = 1,000 International_Units, By Mouth, 0 Refills, Maintenance, 09/15/15 9:42:37 acetaminophen 325 mg oral tablet: 650 mg, By Mouth, Every 6 hours, PRN, Temperature Greater than 100.5, Refills 0, Maintenance, Headache Pain , Mild, 04/02/16 14:32:38 aspirin 81 mg oral tablet: 1 tablet = 81 mg, By Mouth, Daily, 0 Refills, Maintenance, 06/17/10 14:05:19 insulin glargine 100 u/ml subcutaneous solution: = 72 units, Subcutaneous Injection, Daily at bedtime, 0 Refills, Maintenance, 09/29/18 11:38:12 EST, Injection losartan 100 mg oral tablet: 1 tablet = 100 mg, By Mouth, Daily, 0 Refills, Maintenance, 09/15/15 9:45:27 methenamine hippurate 1 gm oral tablet: 1 tablet = 1 Gm, By Mouth, 2 times a day, 0 Refills, Maintenance, 01/12/16 13:14:06 simvastatin 20 mg oral tablet: 1 tablet = 20 mg, By Mouth, Daily at bedtime, 0 Refills, Maintenance, 09/15/15 9:42:09 Surgical History Procedure/Surgical Profile Robotic SI Salpingo-Oophorectomy Laparoscopic (Bilateral) on 03/13/2016 at 65 Years. Comments: 03/13/2016 10:10 SUSSY - Fela Engle auto-populated from documented surgical case BSO - Bilateral salpingo-oophorectomy ([id number]) on 03/13/2016 at 65 Years. Gastric restrictive procedure, without gastric bypass, for morbid obesity; other than vertical-banded gastroplasty ([id number]). Foot incision ([id number]). Arthroscopy of shoulder ([id number]). Abdominal hysterectomy ([id number]). Social History Social History Tobacco Details: Never smoker . Family History Family History Profile Mother Diabetes mellitus type II Father Diabetes mellitus type II Review of Systems Negative: Constitutional, Eye, Skin, Head/Neck, ENMT, Respiratory, Cardio, Gastrointestinal, Breast, Gynecologic, Genitourinary, Endocrine, Muscoloskeletal, Immunologic, Hematologic, Lymphatic, Neurologic, Psych reviewed and negative except as noted in HPI. Physical Examination Vital Signs Vitals : VITALS 12/19/2022 19:57 EST Height 167 cm Weight 108.5 kg Dry Weight 108.5 kg Weight lb/oz 239 lb 3 oz Temperature 98.0 DegF Temperature Route Oral Pulse Rate 77 bpm Respiratory Rate 17 br/min Systolic Blood Pressure 189 mm Hg H Diastolic Blood Pressure 78 mm Hg Blood pressure sites Arm, right Pulse Pressure 111 mm Hg Oxygen Saturation 98 % Mode of Delivery (Oxygen) Room air . ??Physical Exam: Gen: No Acute Distress, Awake and Conversant Neuro: Alert and Oriented x 3 Head: Normocephalic, Atraumatic Eyes: Non-icteric, No conjunctival injection Cardiac: Regular rate and rhythm Resp: Even and unlabored breathing, no wheezing Abdomen: soft, non-distended?no rebound tenderness or guarding, Mild RUQ pain to deep palpation Ext: No lower Extremity Edema Bilaterally, Demonstrates full active range of motion Skin: No rashes, warm and well perfused Results Review 7 day results Labs & Documents Laboratory : LABORATORY 12/19/2022 15:47 EST WBC 6.3 k/mm3 RBC 3.44 m/mm3 L Hgb 10.0 Gm/dL L Hct 31.9 % L MCV 92.7 femtoliters MCH 29.1 pg MCHC 31.3 g/dL L Platelet Count 318 k/mm3 RDW-SD 49.9 femtoliters H MPV 11.1 femtoliters Nucleated RBC (Automated) 0.0 #/100 WBC'S Abs. NRBC 0.0 k/mm3 Abs. Neut 3.2 k/mm3 Abs. Lymph 2.3 k/mm3 Abs. [place] 0.5 k/mm3 Abs. Eo 0.2 k/mm3 Abs. Baso 0.1 k/mm3 Neut % 50.9 % Lymph % 36.0 % [place] % 8.0 % Eos % 3.8 % Baso % 0.8 % Imm Gran 0.5 % Abs. Imm Gran 0.0 k/mm3 Hold Blue Top SPECIMEN DISCARDED AFTER 4 HOURS. Sodium 137 mmol/L Potassium HEMOLYZED mmol/L Chloride 103 mmol/L Bicarbonate Level 22 mmol/L Anion Gap 12 Glucose Level 156 mg/dL H BUN 30 mg/dL H Creatinine-Blood 1.3 mg/dL H Estimated GFR Creatinine 45 ML/MIN/1.73 M2 Calcium 9.6 mg/dL Nt-Probnp 766 pg/mL H High Sensitivity Troponin (HSTnT) HEMOLYZED ng/L RESULT: US RUQ US RUQ HX OF PRESENT ILLNESS: chest pain; Reason: Abdominal Pain; Clinical Question(s): Cholecystitis COMPARISON: None. FINDINGS: Liver: Diffusely echogenic parenchyma. No suspicious lesion. Mildly nodular hepatic contour. Main portal vein patent with normal hepatopetal direction of flow. Gallbladder: Multiple layering gallstones with posterior acoustic shadowing. Distended gallbladder,measuring up to 4 cm in transverse diameter, with wall thickness measuring up to 0.3 cm, at the upper limits of normal. No pericholecystic fluid. Negative Garay sign. Biliary Tree: No intrahepatic or extrahepatic bile duct dilation is identified. Common duct measures: 0.5 cm. Pancreas: Obscured by overlying bowel gas. Right kidney: 11.9 cm in length. Normal parenchymal echotexture and thickness. No hydronephrosis, stone or mass. IMPRESSION: 1. Distended gallbladder with borderline wall thickening and cholelithiasis without pericholecysticfluid or sonographic Garay's sign. Findings are equivocal for diagnosis of acute cholecystitis. Ifclinical concern persists, further evaluation with HIDA scan should be considered. 2. Echogenic liver likely representing hepatic steatosis. Mildly nodular contour could indicate early cirrhotic changes. I have personally reviewed the images and I agree with this report. WSN: [id number] Ordering Physician: Maddison Jacome Impression and Plan Patient is a 71-year-old female with a past medical history of peripheral neuropathy, diabetes, GERD, hypertension, depression and obesity who presented to [facility], [place] with chest pain, aspart of her work-up she had EKGs which were within normal limits, as well as a full set of labs which showed no leukocytosis electrolytes notable for elevated creatinine of 1.3 and troponins of 74, elevated, and a proBNP of 766 of note troponin up trended to 86 since her admission additionally she had LFTs performed which showed mild elevation of AST ALT and alk phos within normal T bili. Additionally a right upper quadrant ultrasound was obtained which showed mild thickening of the gallbladderwall at 0.3 cm a CBD of 1.5 cm and a distended gallbladder at 4 cm with no evidence of pericholecystic fluid and was deemed equivocal for acute cholecystitis with Cholelithiasis. At this time it is unclear the source of her pain whether this is cardiac in origin or if it is truly associated with symptomatic cholelithiasis this time there is no exam findings which raise the concern for immediate surgical intervention, thus we are recommending admission and work-up of her chest pain and elevated cardiac enzymes with ACS to follow to discuss the need for a possible interval cholecystectomy. Plan ??? No acute surgical intervention indicated at this time ??? ACS to follow ??? Okay for clear liquid diet from our perspective ??? Follow-up on repeat lipase and LFTs With questions please reach out to acute care surgery [id number] This patient was discussed with Dr. Pate * Felisha Pate MD: PERFORM Event Display: History and Physical Hospital Authored Date: Attending attestation: Patient seen, examined, and discussed with the surgical team. The course, labs and studies were reviewed and findings on exam confirmed. I agree with the findings and assessment and plan as delineated above. Pt with onset left sided chest, epigastric pain, now somewhat more right sided. On my exam, she hasno tenderness on palpation. Ongoing evaluation revealing US wtih gallstones and mild wall thickening (nonspecific) as well as elevated troponins, Cardiac event being ruled out. Will follow to determine if symptomatic cholelithiasis or chronic/early acute cholecystitis is morethe issue than cardiac. * Joanne [place]: PERFORM Event Display: History and Physical Hospital Authored Date: Patient seen and examined at bedside this morning. She is feeling ok, chest and abdominal pain improved some. She endorses ongoing pain in the right upper quadrant. She endorses fever and chills overnight as well as nausea, no vomiting. Abdominal exam reveals right upper quadrant tenderness to palpation, no rebound or guarding, negative garay's. Recommend treating with antibiotics for acute cholecystitis and plan will be OR for laparoscopic cholecystectomy once patient is cleared from a cardiac perspective. Admission evaluation note * Van AVILES, Theresa Ren: MODIFY Cinthia Medrano DO: PERFORM, MODIFY Cinthia Medrano DO: MODIFY, MODIFY Cinthia Medrano DO: MODIFY, MODIFY Cinthia Medrano DO: MODIFY, MODIFY Cinthia Medrano DO: MODIFY Event Display: Admission Note Authored Date: Patient: ??ALEXY GUZMAN ? Age:??71 Years?Sex:??Female?:??1950?? Chief Complaint/Reason for Consultation chest pain History of Present Illness 71-year-old female medical history diabetes, peripheral neuropathy, GERD, hypertension, depression,obesity, CKD??who presented to [facility] [place] with chest pain. Reports chest pain started this past weekend, 4 days ago.?? Started on left side under breast and radiated to RUQ.?? She did have an episode of vomiting over the weekend. ??Chest pain worsened today with shortness of breath andincreased midsternal pressure??that was worse with??exertion. Patient reports she called her cop winder Dr. Torrez PVC was advised to come to the ED.?? She follows with [facility] cardiology for valvular disorder and hypertension, renal us.?? States she has not had history of heart attack however did have a cardiac cath a long time ago in [place], does not remember these results. ?? In the ED, patient was afebrile, hypertensive 179/72, heart rate 83, satting 100% on room air.?? EKG showed normal sinus rhythm heart rate 83, PACs, poor R wave progression.?? Labs show no leukocytosis, H&H 09/18, electrolyte abnormalities, BUN 30/creatinine 1.3, alk phos 118, AST 68, ALT 52, total bili 0.2.?? NT proBNP 766, high-sensitivity troponin 74, 86, delta 12.?? Right upper quadrant ultrasound shows distended gallbladder, cholelithiasis without pericholecystic fluid or sonographic Garay sign, findings equivocal for acute cholecystitis. ?? Surgery was consulted and no indication for acute surgical intervention or antibiotics at this time. Patient admitted for NSTEMI. ?? On my??exam, patient was??sitting in bed resting comfortably. ??Reports currently has no chest pain. Review of Systems General: Denies fevers, chills HEENT: Denies headache CV: Denies chest pain, palpitations Respiratory: Denies shortness of breath, cough, wheezing GI: Denies abdominal pain, nausea, vomiting, constipation, diarrhea Extremities: Denies lower extremity edema MSK: Denies joint pain, difficulty ambulating, myalgias Neuro: Denies weakness, numbness, paresthesias ?? All other systems were reviewed and are negative except for above Objective Measurements?? Height: 167 cm (12/19/22) Weight: 108.5 kg (12/19/22) Dry Weight: 108.5 kg (12/19/22) Body Mass Index:??38.9 kg/m2??Critical (12/19/22) ? Vital Signs?? Temperature: 98 DegF (12/19/22 19:57:00) Temperature Route: Oral (12/19/22 19:57:00) Pulse Rate: 81 bpm (12/20/22 00:48:00) Respiratory Rate: 18 br/min (12/20/22 00:48:00) Systolic Blood Pressure:??168 mm Hg??High (12/20/22 00:48:00) Diastolic Blood Pressure: 68 mm Hg (12/20/22 00:48:00) Blood pressure sites: Arm, right (12/20/22 00:48:00) Mean Arterial Pressure: 101 mm Hg (12/20/22 00:48:00) Pulse Pressure: 100 mm Hg (12/20/22 00:48:00) Oxygen Saturation: 99 % (12/20/22 00:48:00) Mode of Delivery (Oxygen): Room air (12/20/22 00:48:00) ? Physical Exam General:??No acute distress HEENT:??EOMI, PERRLA,??mucous membranes moist CV:??RRR. S1, S2. Systolic murmur. No rubs or gallops. No JVD Respiratory:??Non-labored respirations. CTA bilaterally.??No wheezes, rales, rhonchi GI:??Bowel sounds present. Soft, non-tender, non-distended. Negative Garay. No hepatosplenomegaly :??No suprapubic tenderness MSK:??Trace lower extremity edema Neuro:??AAO x3. Moves all extremities spontaneously Psych:??Affect appropriate Skin:??No lesions, wounds, rashes ?? Assessment/Plan 71-year-old male medical history diabetes, peripheral neuropathy, GERD, hypertension, depression, obesity who presented to [facility] [place] with chest pain and admitted for NSTEMI. ?? #NSTEMI Presented with chest pain for 4 days, started left lower chest, radiated to RUQ, and worse on admission with dyspnea and midsternal pressure. Risk factors: HTN/dyslipidemia/DM2/fam hx EKG NSR with PACs,??with no ST changes hsTrop 74 > 86, delta 12 - rules in Impression: Chest pain not entirely cardiac in nature however??she does rule in based off troponin and has??significant risk factors.?Also considering demand ischemia due to uncontrolled hypertension. ?? Plan: - Heparin gtt - [facility]iology consulted for cath - Trend hsTrop - Check TSH - Echo ordered - Nitropaste as needed for chest pain - Aspirin 81 mg daily -??D/C simvastatin. Start atorvastatin 40 mg QHS - Repeat EKG PRN for rhythm changes/chest pain - Monitor daily electrolytes, goal K > 4, mag > 2 ?? #RUQ pain Left sided chest pain??radiates to RUQ. RUQ US shows cholelithiasis, equivocal for acute cholecystitis. ??Pain is intermittent and could represent biliary colic Has mildly elevated LFTs, bili WNL Per surgery, no surgical intervention or antibiotics indicated at this time ?? Plan: - Trend LFTs and lipase - Serial abdominal exam -??Low threshold for starting antibiotics - If recurrent or worsening pain, discuss with surgery and consider HIDA scan ?? #Elevated D-dimer low suspicion PE given nonhypoxic, not tachy, no pleuritic chest pain ?? Plan: - LE US doppler for thrombosis ?? Chronic, stable medical conditions: T2DM: Last A1c Oct 2022 7.6; Lantus 72U, SSI HLD:??atorvastatin HTN: Continue amlodipine, carvedilol, HCTZ, spironolactone CKD stage III: Baseline cr 1.3 ?? Quality Measures: DVT prophylaxis: heparin gtt Diet: NPO pending possible cath ?? Code status: FULL ?? Patient seen and discussed with attending physician, ??Van Medrano, DO Internal Medicine PGY-2 Pager #: [phone] ? Attending Attestation:??I have seen and evaluated this patient- 12/20/22 in ED D pod after she presented for evaluation of dyspnea with intermittent L CP after an episode of increased severity with associated radiation to the RUQ /epigastric AP with n/v and was found to have some ?poor R wave progression on EKG with hsT rising from 74-->86 with delta 12-- raising concern for nstemi- treated with asa/hep gtt-- DDx??acs, demand, PE??or htn heart disease on ddx as well as US showing some cholelithiasis with GB wall thickening--equivocal for cholecystitis with nl wbc/LFTs. Will continue with serial abdominal exams, f/u further surg recs and considering HIDA while continuing cardiac monitoring, hep gtt and awaiting cardiology consultation.?The D dimer was also elevated but there was no hypoxia or tachycardia and PE seemed less likely-- given CKD and pending cardiology input- did not obtain CTA as already also on hep gtt. I have discussed the case and its management with the residentand agree with the findings and plan as documented in the resident???s note. ?? Histories Allergies Allergies ?(Active and Proposed Allergies Only) NKA? (Severity: Unknown severity, Onset: Unknown) ? Past Medical History/Problem List Active Problems??(6) Atypical chest pain Fall Knee pain, left Neuropathy Obese class II Retinopathy ??htn hl dm2 diabetic peripheral neuropathy CKD valve disease ? Past Surgical History BSO - Bilateral salpingo-oophorectomy: 03/13/16 Arthroscopy of shoulder Abdominal hysterectomy Foot incision Gastric restrictive procedure, without gastric bypass, for morbid obesity; other than vertical-banded gastroplasty cardiac catheterization in [facility] unknown??(no AR per pt) ? Social History Tobacco Details:??Never smoker ? Family History Mother: Diabetes mellitus type II; Heart attack Father: Diabetes mellitus type II; Heart attack ? Medications Home Medications Acetaminophen (acetaminophen 325 mg oral tablet)?650?Milligram?By Mouth?Every 6 hours?as needed?Temperature Greater than 100.5?Headache Pain , Mild Amlodipine?5?Milligram?By Mouth?Daily Aspirin (aspirin 81 mg oral tablet)?1?tab(s)?81?Milligram?By Mouth?Daily Cholecalciferol (Vitamin D3 1000 intl units oral capsule)?1?capsule?1,000?InternationalUnit?By Mouth Esomeprazole (Nexium 40 mg oral enteric coated capsule)?1?capsule?40?Milligram?By Mouth?Daily Hydrochlorothiazide?25?Milligram?By Mouth Insulin Glargine (insulin glargine 100 u/ml subcutaneous solution)?72?unit(s)?SubcutaneousInjection?Daily at bedtime Insulin Lispro (Humalog 100 u/ml subcutaneous injection)?See Instructions?3 times a day before meals?Subcutaneous Infusion/sliding scale 6-20units Losartan (losartan 100 mg oral tablet)?1?tab(s)?100?Milligram?By Mouth?Daily Methenamine (methenamine hippurate 1 gm oral tablet)?1?tab(s)?1?gram?By Mouth?2 times a day Multivitamin?By Mouth?2 times a day Simvastatin (simvastatin 20 mg oral tablet)?1?tab(s)?20?Milligram?By Mouth?Daily at bedtime ? Results Recent Labs BLOOD COUNT & DIFF WBC 6.3 k/mm3 ()?? 12/19/2022 15:47 RBC 3.44 m/mm3 (Low)?? 12/19/2022 15:47 Hgb 10.0 Gm/dL (Low)?? 12/19/2022 15:47 Hct 31.9 % (Low)?? 12/19/2022 15:47 MCV 92.7 femtoliters ()?? 12/19/2022 15:47 MCH 29.1 pg ()?? 12/19/2022 15:47 MCHC 31.3 g/dL (Low)?? 12/19/2022 15:47 Platelet Count 318 k/mm3 ()?? 12/19/2022 15:47 RDW-SD 49.9 femtoliters (High)?? 12/19/2022 15:47 MPV 11.1 femtoliters ()?? 12/19/2022 15:47 Nucleated RBC (Automated) 0.0 #/100 WBC'S ()?? 12/19/2022 15:47 Abs. NRBC 0.0 k/mm3 ()?? 12/19/2022 15:47 Abs. Neut 3.2 k/mm3 ()?? 12/19/2022 15:47 Abs. Lymph 2.3 k/mm3 ()?? 12/19/2022 15:47 Abs. [place] 0.5 k/mm3 ()?? 12/19/2022 15:47 Abs. Eo 0.2 k/mm3 ()?? 12/19/2022 15:47 Abs. Baso 0.1 k/mm3 ()?? 12/19/2022 15:47 Neut % 50.9 % ()?? 12/19/2022 15:47 Lymph % 36.0 % ()?? 12/19/2022 15:47 [place] % 8.0 % ()?? 12/19/2022 15:47 Eos % 3.8 % ()?? 12/19/2022 15:47 Baso % 0.8 % ()?? 12/19/2022 15:47 Imm Gran 0.5 % ()?? 12/19/2022 15:47 Abs. Imm Gran 0.0 k/mm3 ()?? 12/19/2022 15:47 ?? CARDIAC Nt-Probnp 766 pg/mL (High)?? 12/19/2022 15:47 High Sensitivity Troponin (HSTnT) 86 ng/L (Critical)?? 12/19/2022 21:52 ?? CHEM GENERAL Sodium 137 mmol/L ()?? 12/19/2022 15:47 Potassium HEMOLYZED mmol/L ()?? 12/19/2022 15:47 Chloride 103 mmol/L ()?? 12/19/2022 15:47 Bicarbonate Level 22 mmol/L ()?? 12/19/2022 15:47 Anion Gap 12 ()?? 12/19/2022 15:47 Glucose Level 156 mg/dL (High)?? 12/19/2022 15:47 BUN 30 mg/dL (High)?? 12/19/2022 15:47 Creatinine-Blood 1.3 mg/dL (High)?? 12/19/2022 15:47 Estimated GFR Creatinine 45 ML/MIN/1.73 M2 ()?? 12/19/2022 15:47 Calcium 9.6 mg/dL ()?? 12/19/2022 15:47 Protein, Total 7.0 Gm/dL ()?? 12/19/2022 17:39 Albumin 3.5 Gm/dL ()?? 12/19/2022 17:39 Alkaline Phosphatase 118 units/L (High)?? 12/19/2022 17:39 AST (SGOT) 68 units/L (High)?? 12/19/2022 17:39 ALT (SGPT) 52 units/L (High)?? 12/19/2022 17:39 Bilirubin, Total 0.2 mg/dL ()?? 12/19/2022 17:39 Bilirubin, Direct <0.2 mg/dL ()?? 12/19/2022 17:39 Bilirubin, Indirect Direct bilirubin is less than the measureable limit. Therefore, indirect mg/dL ()?? 12/19/2022 17:39 ?? COAG APTT 22.7 seconds (Low)?? 12/19/2022 21:52 D-Dimer 1.14 mg/L FEU (High)?? 12/19/2022 21:52 ?? HEME OTHER Hold Blue Top SPECIMEN DISCARDED AFTER 4 HOURS. ()?? 12/19/2022 15:47 ?? VIROLOGY COVID-19 POC Result NEGATIVE ()?? 12/19/2022 14:11 ? CBC, CBC w/Diff?? CBC?? Differential?? WBC: 6.3 k/mm3 (15:47) Abs. Neut: 3.2 k/mm3 (15:47) RBC:??3.44 m/mm3??Low (15:47) Abs. Lymph: 2.3 k/mm3 (15:47) Hct:??31.9 %??Low (15:47) Abs. [place]: 0.5 k/mm3 (15:47) RDW-SD:??49.9 femtoliters??High (15:47) Abs. Eo: 0.2 k/mm3 (15:47) Nucleated RBC (Automated): 0 #/100 WBC'S (15:47) Abs. Baso: 0.1 k/mm3 (15:47) Abs. NRBC: 0 k/mm3 (15:47) Neut %: 50.9 % (15:47) ?? Lymph %: 36 % (15:47) ?? [place] %: 8 % (15:47) ?? Eos %: 3.8 % (15:47) ?? Baso %: 0.8 % (15:47) ?? Imm Gran: 0.5 % (15:47) ?? Abs. Imm Gran: 0 k/mm3 (15:47) ? Urinalysis?? No qualifying data available. ? EKG study * Event Display: ECG 12-Lead Authored Date: Please click on pdf link to open report * Event Display: ECG 12-Lead Authored Date: Ventricular Rate: 81 BPM Atrial Rate: 81 BPM P-R Interval: 144 ms QRS Duration: 86 ms Q-T Interval: 396 ms QTC Calculation(Bazett): 460 ms P [place]: 42 degrees R [place]: -27 degrees T [place]: 73 degrees Normal sinus rhythm Nonspecific ST and T wave abnormality Abnormal ECG When compared with ECG of 19-DEC-2022 17:40, MANUAL COMPARISON REQUIRED, DATA IS UNCONFIRMED Confirmed by JAQUI TORRES MD ([id number]) on 12/20/2022 5:17:22 PM [place]: JAQUI TORRES MD US Heart * Event Display: Echocardiogram - Complete Authored Date: Transthoracic Echocardiography Report (TTE) Patient Demographics Patient Name MAC, INEZE Date of Study 12/20/2022 Corporate Gender Female Facility Race Black Ethnicity Date of 1950 Height: 65.75 inches Age 71 year(s) Weight: 238.1 pounds Accession Number [id number] BSA: 2.15 m2 Room Number [id number] BMI: 38.72 kg/m2 Referring Physician Mitchell Vicente DO Interpreting Physician Crystal Reed MD Cup Trimming Machine Operator Mandi Shaw Indications NSTEMI. Clinical History Dyspnea. Obesity. Chest pain. Study Data Type of Study TTE procedure:Echo Complete-Doppler, Colorflow, M-Mode. Study Date12/20/2022 Start Time: 09:21 AM Study Location[place] [facility] [place] Study Status: Bedside Patient Status: Routine Technical Quality: Adequate Blood Pressure:162/72 mmHg EKG: Within normal limits HR: 75 bpm 2D Measurements LV Diastolic Dimension: 4.9 cm LV Systolic Dimension: 3.6 cm LV Septum Diastolic: 1.1 cm LV PW Diastolic: 1.1 cm AO Root Dimension: 2.8 cm LA ESV (BP):46.1 ml LVOT Stroke Volume: 56.96 ml LA ESV Index: 21 ml/m2 Stroke Volume Index26.49 ml/m2 LVOT: 1.9 cm Cardiac Index:1.99 l/min/m2 Doppler Measurements AV Peak Velocity: 143 cm/s MV Peak E-Wave: 106 cm/s AV Peak Gradient: 8.18 mmHg MV Peak A-Wave: 121 cm/s AV Mean Gradient: 5 mmHg MV E/A Ratio: 0.88 AV VTI:28.1 cm LVOT Peak Velocity: 90.3 cm/s LVOT VTI20.1 cm MV Deceleration Time: 211 msec AV Area (Continuity):2.03 cm2 TR Velocity:213 cm/s PV Peak Velocity: 104 cm/s TR Gradient:18.15 mmHg PV Peak Gradient: 4.33 mmHg E' Septal Velocity: 6.42 cm/s E' Lateral Velocity: 9.36 cm/s E/Med E':16.5109 E/Lat E':11.62187 Cardiac Anatomy Left Ventricle/Interventricular Septum The left ventricular size is normal. The left ventricular wall thickness is mildly increased. Normal LV systolic function. Ejection fraction is 55-65%. No obvious wall motion abnormalities seen on limited views. Indeterminate diastolic parameters. Left Atrium/Interatrial Septum The left atrium is normal in size. Aortic Valve The aortic valve is trileaflet . The aortic valve appears mildly calcified. There is no significant aortic stenosis. There is no significant aortic regurgitation within the views obtained. Mitral Valve The mitral valve appears mildly calcified. There is trace mitral regurgitation. There is no significant mitral stenosis. Aorta The aortic root appears normal. Right Ventricle The right ventricle is normal in size and function. Right Atrium The right atrium is normal in size. Pulmonic Valve The pulmonic valve is poorly visualized. Tricuspid Valve The tricuspid valve is normal in structure and function. There is trace regurgitation. Pumonary Artery An accurate pulmonary artery pressure could not be obtained. Venous Structures The inferior vena cava is poorly visualized. Pericardium/Extracardiac There is no significant pericardial effusion. Summary Technically difficult study. The left ventricular size is normal. The left ventricular wall thickness is mildly increased. Normal LV systolic function. Ejection fraction is 55-65%. No obvious wall motion abnormalities seen on limited views. Indeterminate diastolic parameters. The right ventricle is normal in size and function. Comparison No prior study available for comparison. Signature * Event Display: Echocardiogram - Complete Authored Date: Note * Event Display: Cardiac Rhythm Strips Authored Date: * Tita Sims RN: PERFORM Event Display: Discharge/Transfer Note Hospital Authored Date: Nursing Discharge Note Entered On: 12/22/2022 10:34 EST Performed On: 12/22/2022 10:34 EST by Bethany SCHROEDER Tita Nursing Discharge Note 2 Discharge Time : 12/22/2022 13:00 EST Bethany SCHROEDER Tita - 12/22/2022 17:15 EST Discharge Level of Care at Discharge : Homehealth/VNA Discharge VNA/Hospice/Home Care(v001) : [facility] Patient Left Unit Via : Wheelchair Patient Accompanied Off Unit with : Responsible adult, Other: STAFF DC Instructions Provided & Signed by Pt : Yes Patient Understands D/C Instructions : Yes Patient Instructions Discharge Signed : Yes Did Pt have Specialty Bed or Wound Vac : No Bethany SCHROEDER, Tita - 12/22/2022 10:34 EST * Susana Diehl: MODIFY, PERFORM Event Display: Discharge/Transfer Note Hospital Authored Date: [id number] Patient: ??ALEXY GUZMAN ? Age:??71 Years?Sex:??Female?:??1950?? Patient Information Discharge Location: Primary Care Physician: Rosalina AVILES, Diana Worley Admit Date/Time: 12/20/22 00:59 Discharge Disposition Discharge Disposition: Home with Home Health Discharge Diagnosis Atypical angina (I20.8) Cholecystitis (K81.9) Nausea (R11.0) Shortness of breath (R06.02) Unstable angina (I20.0) Vomiting (R11.10) ?? _ Discharge Medications Acetaminophen (acetaminophen 325 mg oral tablet)?650?Milligram?By Mouth?Every 6 hours?as needed?Temperature Greater than 100.5?Headache Pain , Mild Albuterol (Albuterol (Eqv-ProAir HFA) 90 mcg/inh inhalation [...] gm oral tablet)?1?tab(s)?1?gram?By Mouth?2 times a day Metronidazole (metroNIDAZOLE 500 mg oral tablet)?1?tab(s)?500?Milligram?By Mouth?3 times a day?for 5?Days Multivitamin?By Mouth?2 times a day Pantoprazole (pantoprazole 40 mg oral delayed release tablet)?1?tab(s)?40?Milligram?By Mouth?Daily Simvastatin (simvastatin 40 mg oral tablet)?40?Milligram?1?tablet?By Mouth?Daily at bedtime Spironolactone (spironolactone 50 mg oral tablet)?1?tab(s)?50?Milligram?By Mouth?Daily ? 72 Hour Antibiotic History Active Antibiotics Calendar Day Last Administered First Administered Metronidazole??500 mg, 100 mL, 100 mL/hr, IVPB, Every 8 hours ?3 12/22/2022 04:22 12/20/2022 11:13 Ceftriaxone??1 Gm, 100 mL/hr, IVPB, Every 24 hours ?3 12/21/2022 11:47 12/20/2022 10:53 ? Medications Started Metronidazole 500 mg 3 times daily x5 days Medications Discontinued None Doses Changed None Allergies Allergies ?(Active and Proposed Allergies Only) NKA? (Severity: Unknown severity, Onset: Unknown) ? PCP Follow-Up/Heads-Up Patient will need follow-up with ??Shan's??office??to arrange outpatient PET scan.?? She will also need follow-up with [facility]??general surgery??to schedule outpatient follow-up for discussion of cholecystectomy Hospital Course ??Per admitting physician 71-year-old female medical history diabetes, peripheral neuropathy, GERD, hypertension, depression, obesity, CKD??who presented to [facility] [place] with chest pain. Reports chest pain started this past weekend, 4 days ago.?? Started on left side under breast and radiated to RUQ.?? She did have an episode of vomiting over the weekend. ??Chest pain worsened today with shortness of breath and increased midsternal pressure??that was worse with??exertion. Patient reports she called her cop winder Dr. Torrez PVC was advised to come to the ED.?? She follows with [facility] cardiology for valvular disorder and hypertension, renal us.?? States she has not had h istory of heart attack however did have a cardiac cath a long time ago in [place], does not remember these results. ?? In the ED, patient was afebrile, hypertensive 179/72, heart rate 83, satting 100% on room air.?? EKG showed normal sinus rhythm heart rate 83, PACs, poor R wave progression.?? Labs show no leukocytosis, H&H 10/31, electrolyte abnormalities, BUN 30/creatinine 1.3, alk phos 118, AST 68, ALT 52, total bili 0.2.?? NT proBNP 766, high-sensitivity troponin 74, 86, delta 12.?? Right upper quadrant ultrasound shows distended gallbladder, cholelithiasis without pericholecystic fluid or sonographic Garay sign, findings equivocal for acute cholecystitis. ?? Surgery was consulted and no indication for acute surgical intervention or antibiotics at this time. Patient admitted for NSTEMI. ?? On my??exam, patient was??sitting in bed resting comfortably. ??Reports currently has no chest pain. Objective Assessment and Plan 71-year-old female with a past medical history of??peripheral neuropathy, GERD, hypertension, diabetes type 2 insulin-dependent, and obesity??admitted to the hospital for NSTEMI rule out/cholecystitis. ?? #Elevated high-sensitivity troponin #Rule out NSTEMI??versus demand ischemia ??? Patient did present with chest pain and was concern for??NSTEMI??versus demand ischemia as her high-sensitivity troponin was initially elevated to 74,??slightly increased to 87 however did trend back down to 76. ??Initially patient was started on a heparin drip, she was evaluated by??cardiology??who did not believe there was??any acute coronary syndrome event.?? Drip was discontinued.?? She did undergo an echocardiogram??which did show??normal LV systolic function with an EF of 55 to 65% with no obvious wall motion abnormality.?? Patient was monitored on telemetry throughout her stay with no??events noted.?? Per cardiology??arrangements will be made??to have a cardiac stress test utilizing pet imaging, this will be scheduled through??their office.?? Patient will continue on her home aspirin,??statin, and??CBV. ?? #Right upper quadrant pain #Cholecystitis ??? Patient has been having??right upper quadrant pain/discomfort,??and an ultrasound of??her rightupper quadrant was obtained which did show distended gallbladder with borderline wall thickening??which would be findings consistent with acute cholecystitis.?? General surgery was consulted??and a CT abdomen pelvis was obtained??which did show??mild distention with the gallbladder with gallstones.?? Initial LFTs were??mildly??elevated however they were trending down as well as her lipase. ??She was started on ceftriaxone and Flagyl??as a preventative measure.?Upon discharge she will continue Flagyl 500 mg 3 times daily x5 days.?No leukocytosis on labs, she remained afebrile and nontoxic- appearing during admission. ??General surgery does not believe??a cholecystectomy is??necessary during this admission??and patient can follow- up??as an outpatient with their office??for discussion and potential scheduling??to have??her gallbladder out. ? #CKD stage IIIb ?No intervention was necessary during this hospitalization. ??She continue to follow-up as an outpatient with??PCP for routine following ?? #Elevated D-dimer ?Initially??D-dimer was elevated??however??patient was??not tachycardic??or hypoxic.?? Bilateral lower extremity??ultrasound was obtained which do not show any evidence of DVT ?? #Diabetes type 2 insulin-dependent ?Last hemoglobin A1c October 2022 was 7.6.?There were no hypoglycemic events during admission.?? Patient will continue on her home insulin regimen upon discharge ?? #Essential hypertension #Hyperlipidemia ??? Continue home amlodipine, carvedilol, hydrochlorothiazide, and spironolactone ?Continue simvastatin ? Acute kidney injury IVF??Gentle IV hydration avoid NSAIDs/Nephrotoxic medications Renally dose all medications ?? #Elevated D-dimer - LE US Doppler negative for DVT ?? Discharge Planning:??Home with services ? . Physical Exam Vital signs reviewed?? Constitutional:??Older female resting comfortably in bed, alert/awake, cooperative, no apparent??CVor respiratory distress Head:??Atraumatic, normocephalic ENT:??PERRL, moist mucous membranes Neck:??Supple, no tenderness Cardiovascular:??S1 S2, RRR, no murmur Pulm:??Clear to auscultation bilaterally with good air entry throughout, no wheezes, rhonchi, rales Abdominal:??Bowel sounds x4 quadrants, soft, NT, ND,??obese, no guarding Extremities:??No edema??or tenderness Neuro:??Alert and oriented x3, moves all extremities spontaneously and independently Skin: Warm/dry, intact Psych:??Pleasant mood, normal affect, not anxious appearing Consultants General surgery Cardiology Pending Results Add On Lab Order ordered on 12/19/2022 Add On Lab Order ordered on 12/20/2022 Add On Lab Order ordered on 12/20/2022 Follow-Up Appointments Added Follow Up ?Time Frame ?Comments Rosalina AVILES, Diaan Worley [facility] General Surgery?please call to schedule OP fu to discuss cholecystectomy Post Discharge Care Code Status: ?? Full Resuscitation Prognosis: Good Discharge ?Today, ??Ok for patient to go to discharge [facility] [place], ??12/22/22 9:56:00 EST Home Health Face to Face *Denotes mandatory taylor ?? *I certify that this patient is under my care and that I or an allowed non- physician working with me had a face to face encounter with the patient on this date:??12/22/2022 10:12 ?? *The encounter with the patient was in whole, or in part, for the following medical condition, which is the primary diagnosis(es) for home health care:??Atypical angina (I20.8) Cholecystitis (K81.9) Nausea (R11.0) Shortness of breath (R06.02) Unstable angina (I20.0) Vomiting (R11.10) ? *Select the indications for the discipline/s that are being arranged for this patient. Nursing (select all that apply): [_] None [_] Medication management (reconciliation, teaching)?? [x] Chronic disease management?? [_] Wound care and treatment?? [_] Home safety evaluation [_] Administer SQ/IM/IV medications?? [_] Cath care?? [_] Drain care?? [_] Trach or GT care?? Other _ Occupation Therapy (select all that apply): [_] None [_] ADL Management [_] Fall prevention training [_] Energy conservation [_] Cognitive training Other _ Physical Therapy (select all that apply): [_] None [_] Functional mobility training [_] Home exercise program to strengthen [x] Increase ROM?? [_] Falls prevention training [x] Home maintenance program for chronic disease Other _ Speech Therapy (select all that apply): [x] None [_] Swallow evaluation and training [_] Speech and language training [_] Cognitive training to process, organize, and/or recall information Other _ ? *Homebound due to (select all that apply): [x] Inability to leave home without assistance/supervision [_] Inability to ambulate without assistance [_] Pain [x] Decreased strength and endurance [_] Unsteady gait [_] Severe SOB and fatigue [_] Impaired transfers [_] Inability to negotiate stairs [_] Limited weight bearing [_] Mental status change? *Physician Signature: Susana Ruvalcaba PA-C ?? *By signing this, I certify that I have personally evaluated the patient and agree with the findings and recommendations as documented above. ? hFTF Results Discharge Labs BLOOD COUNT & DIFF WBC 6.4 k/mm3 ()?? 12/22/2022 04:29 RBC 2.92 m/mm3 (Low)?? 12/22/2022 04:29 Hgb 8.5 Gm/dL (Low)?? 12/22/2022 04:29 Hct 26.9 % (Low)?? 12/22/2022 04:29 MCV 92.1 femtoliters ()?? 12/22/2022 04:29 MCH 29.1 pg ()?? 12/22/2022 04:29 MCHC 31.6 g/dL (Low)?? 12/22/2022 04:29 Platelet Count 305 k/mm3 ()?? 12/22/2022 04:29 RDW-SD 50.0 femtoliters (High)?? 12/22/2022 04:29 MPV 10.8 femtoliters ()?? 12/22/2022 04:29 Nucleated RBC (Automated) 0.0 #/100 WBC'S ()?? 12/22/2022 04:29 Abs. NRBC 0.0 k/mm3 ()?? 12/22/2022 04:29 Abs. Neut 3.2 k/mm3 ()?? 12/19/2022 15:47 Abs. Lymph 2.3 k/mm3 ()?? 12/19/2022 15:47 Abs. [place] 0.5 k/mm3 ()?? 12/19/2022 15:47 Abs. Eo 0.2 k/mm3 ()?? 12/19/2022 15:47 Abs. Baso 0.1 k/mm3 ()?? 12/19/2022 15:47 Neut % 50.9 % ()?? 12/19/2022 15:47 Lymph % 36.0 % ()?? 12/19/2022 15:47 [place] % 8.0 % ()?? 12/19/2022 15:47 Eos % 3.8 % ()?? 12/19/2022 15:47 Baso % 0.8 % ()?? 12/19/2022 15:47 Imm Gran 0.5 % ()?? 12/19/2022 15:47 Abs. Imm Gran 0.0 k/mm3 ()?? 12/19/2022 15:47 ?? CARDIAC Nt-Probnp 766 pg/mL (High)?? 12/19/2022 15:47 High Sensitivity Troponin (HSTnT) 76 ng/L (Critical)?? 12/20/2022 19:49 ?? CHEM GENERAL Sodium 141 mmol/L ()?? 12/22/2022 04:29 Potassium 4.2 mmol/L ()?? 12/22/2022 04:29 Chloride 103 mmol/L ()?? 12/22/2022 04:29 Bicarbonate Level 26 mmol/L ()?? 12/22/2022 04:29 Anion Gap 12 ()?? 12/22/2022 04:29 Glucose Level 191 mg/dL (High)?? 12/21/2022 05:12 Glucose, POC 181 mg/dL (High)?? 12/22/2022 07:47 BUN 23 mg/dL ()?? 12/22/2022 04:29 Creatinine-Blood 1.6 mg/dL (High)?? 12/22/2022 04:29 Estimated GFR Creatinine 35 ML/MIN/1.73 M2 ()?? 12/22/2022 04:29 Calcium 9.2 mg/dL ()?? 12/21/2022 05:12 Magnesium 1.9 mg/dL ()?? 12/21/2022 05:12 Protein, Total 5.9 Gm/dL (Low)?? 12/20/2022 08:04 Albumin 3.2 Gm/dL (Low)?? 12/20/2022 08:04 AG Ratio 1.2 ()?? 12/20/2022 08:04 Alkaline Phosphatase 108 units/L (High)?? 12/20/2022 08:04 Amylase 82 units/L ()?? 12/19/2022 15:47 Lipase 55 units/L ()?? 12/19/2022 15:47 AST (SGOT) 83 units/L (High)?? 12/20/2022 08:04 ALT (SGPT) 59 units/L (High)?? 12/20/2022 08:04 Bilirubin, Total 0.2 mg/dL ()?? 12/20/2022 08:04 Bilirubin, Direct <0.2 mg/dL ()?? 12/19/2022 17:39 Bilirubin, Indirect Direct bilirubin is less than the measureable limit. Therefore, indirect mg/dL ()?? 12/19/2022 17:39 ? COAG APTT 42.8 seconds (High)?? 12/21/2022 10:45 D-Dimer 1.14 mg/L FEU (High)?? 12/19/2022 21:52 ?? ENDOCRINE/TUMOR MARKER TSH 1.85 uIU/mL ()?? 12/20/2022 08:04 ? HEME OTHER Hold Lavender Top SPECIMEN DISCARDED AFTER 24 HOURS. ()?? 12/20/2022 04:54 Hold Blue Top SPECIMEN DISCARDED AFTER 4 HOURS. ()?? 12/19/2022 15:47 ?? MISC. CHEMISTRY Hold Green Top SPECIMEN DISCARDED AFTER 1 WEEK ()?? 12/20/2022 18:43 ? VIROLOGY COVID-19 PCR Specimen Source NASAL ()?? 12/21/2022 05:01 COVID-19 PCR Result NEGATIVE ()?? 12/21/2022 05:01 COVID-19 POC Result NEGATIVE ()?? 12/19/2022 14:11 ? Blood Glucose Trend Glucose, POC:??181 mg/dL??High (12/22/22 07:47:00) Glucose, POC:??202 mg/dL??High (12/21/22 21:03:00) Glucose, POC:??341 mg/dL??High (12/21/22 17:19:00) ? Microbiology ?? COVID-19 (2019 Novel Coronavirus) PCR?? Completed?? Source: Nasal Body Site: Nose Collected Dt/Tm: 12/21/2022 05:01 Last Updated Dt/Tm: 12/22/2022 00:02 ? Imaging(s) ?CT Chest W/ Contrast ?? 12/21/2022 13:07??by Clemente Currie MD ?IMPRESSION: ?? 1. Gallbladder is mildly distended with gallstones. No surrounding inflammation or wall thickening to suggest acute cholecystitis. Correlate with physical exam findings. ?? 2. Multiple pulmonary nodules seen in the right upper lobe with adjacent tree-in-bud opacities seenin the inferior portion of the right upper lobe and in the superior portion of the right lower lobe. These findings are most likely infectious or inflammatory and may be related to silent aspiration,particularly given the patulous esophagus with a small amount of dependent debris in the midesophagus. Consider follow-up CT chest in 3 months to ensure resolution. ?? 3. Mild flattening of the gastric band with a Phi angle of 65 degrees. Similar to findings from barium swallow dated 11/17/2019 where the Phi angle measures 62 degrees. ? Consults(s) ?Consultation Note ?? 12/20/2022 13:41??by Alvaro Avelar MD ?Assessment/Plan ?? 1. Chest pain ??Troponins elevated but flat, not indicative of an ACS event. Her pain is generally reproducible. She had pain during the echo, which was normal. I suspect this is atypical pain and heparin can be discontinued. We did offer her a PET/stress scan as an outpt. Continue asa/statin/coreg. ?? 2. HTN ??Continue coreg/aldactone/norvasc ?Will arrange outpt PET scan and f/u with Dr Torrez. Will sign- off ? Susana Ruvalcaba PA-C 12/22/2022 ?? 34_ minutes spent on discharge * Bethany SCHROEDER, Tita: PERFORM Event Display: Patient Education/Instruction Authored Date: [id number] Inpatient Adult Discharge Instructions [address] [address] Name: ALEXY GUZMAN : 1950 Visit: 12/20/2022 00:59:00 Current Date: 12/22/2022 10:35 Account: [id number] Inpatient Adult Discharge Instructions We would like [...] and their families. Surveys are administered by [employer] ?? If further treatment with your primary care physician or another doctor is recommended, it is important for you to keep the appointment. Call your primary care physician or return to the Emergency Department immediately if your condition worsens, fails to improve, or new symptoms develop. If you need to find a doctor, you can call [facility] [email or web address] for a referral at [phone] or toll free at [phone] or log in to [email or web address].. ?? You can view and manage your care through the patient portal or by using a health care jessie of your choosing. [email or web address] is a website that allows you to securely view your medical information including your hospital discharge summary, office visit summaries, medications and follow-up visits. You can also request appointments, renew medications, and request access to your medical information using a health care jessie of your choosing, or just ask a question. You can enroll at [email or web address] or register during your next office visit. You have been discharged from [facility] [place], Patient Care Unit: M5. If you have any questions regarding these instructions after you leave, please call us and we will be happy to assist you. [facility] [place] Your Care Team Attending Physician Demetrius AVILES, Hallie Consulting Providers Cinthia Medrano DO Discharging Providers Jordon WESTFALL, Susana Daniels Reason for Admission Chest pain Your Diagnosis Nausea Cholecystitis Shortness of breath Unstable angina Atypical angina Vomiting Tests Performed Below is a partial list of the tests performed during your hospitalization. You may have had other tests and procedures not included in this list. Please discuss all test results with your provider. AMYLASE B Type Natriuretic Peptide Basic Metabolic Panel BUN Calcium Level CBC CBC w/ Differential Comprehensive Metabolic Panel COVID-19 (2019 Novel Coronavirus) PCR COVID-19 RNA POC Creatinine D-DIMER Electrolytes Glucose Level GLUCOSE POC HEPATIC FUNCTION PANEL High??Sensitivity??Troponin T Hold Blue Top Tube HOLD GREEN TUBE HOLD LAVENDER TUBE LIPASE Magnesium Level Potassium Level PTT Troponin T, High Sensitivity TSH Chest CT W/ Contrast CT Abd/Pelvis W/ IV Contrast Only US Doppler Ext Lower Venous Bilat US RUQ XR Chest 2 Views Frontal and Lat Primary Care Provider Rosalina AVILES, Diana Worley Advance Directive Health Care Proxy on File Yes - Health Care Proxy Discharge Vitals Temperature: 97.8 DegF Height: 167 cm Pulse Rate: 69 bpm Weight: 110.1 kg Respiratory Rate: 18 br/min Body Mass Index:??39.48 kg/m2??Critical Systolic Blood Pressure:??153 mm Hg??High Body surface area: 2.26 Systolic Blood Pressure:??153 mm Hg??High ?? Diastolic Blood Pressure:??52 mm Hg??Low ?? Diastolic Blood Pressure:??52 mm Hg??Low ?? Oxygen Saturation: 96 % ?? Studies Pending All tests and labs ordered during this hospital stay have been completed unless listed below. Please discuss all pending results with your provider listed above in these instructions. ?? Add On Lab Order What to do next Instructions From Your Doctor Discharge Orders Code Status:?? Full Resuscitation Prognosis:??Good You Need to Schedule the Following Appointments Follow Up with??Rosalina AVILES, Diana Worley When?? Where: [address] [address]- Follow Up with??[facility] General Surgery When?? Why: please call to schedule OP fu to discuss cholecystectomy Where: [address], [place] [address] ?? < 1 mi Discharge Medications ALEXY GUZMAN :1950 Visit Date:12/20/2022 Medications: Please continue your medications until treatment is completed or stopped by your provider. Medications not listed below should be discontinued. Discuss any questions related to medications with your provider. What How Much When Instructions Next Dose New Metronidazole (metroNIDAZOLE 500 mg oral tablet) 1 tab(s) Oral 3 times a day Duration: [facility]22 Changed Simvastatin (simvastatin 40 mg oral tablet) 1 tab(s) Oral Daily at Bedtime 9pm 12/22 Unchanged Acetaminophen (acetaminophen 325 mg oral tablet) 650 Milligram Oral Every 6 hours as needed for Headache Pain , Mild Temperature Greater than 100.5 ?? as needed Unchanged Albuterol (Albuterol (Eqv-ProAir HFA) 90 mcg/ inh inhalation aerosol) INHALE 2 PUFFS INTO THE LUNGS EVERY 6 HOURS NEEDED FOR COUGH OR WHEEZING OR SHORTNESS OF BREATH ?? as needed Unchanged Amlodipine 5 Milligram Oral Daily 9am 24 Unchanged Aspirin (aspirin 81 mg oral tablet) 1 tab(s) Oral Daily 9am 4 Unchanged Carvedilol (carvedilol 6.25 mg oral tablet) 1 tab(s) Oral Twice a day 9pm 12/22 Unchanged Cholecalciferol (Vitamin D3 1000 intl units oral capsule) 1 capsule Oral resume as you were, unchanged order Unchanged Hydrochlorothiazide 25 Milligram Oral resume as you were, unchanged order Unchanged Insulin Glargine (insulin glargine 100 u/ ml subcutaneous solution) 72 unit(s) Subcutaneous Injection Daily at Bedtime 9pm 12/22 Unchanged Insulin Lispro (Humalog 100 u/ ml subcutaneous injection) See Instructions 3 times a day before meals Subcutaneous Infusion/ sliding scale 6-20units ?? before meals 1pm 2/3 see sliding scale Unchanged liraglutide (Victoza 18 mg/ 3 mL subcutaneous solution) 1.8 Milligram Subcutaneous Injection Daily 9am 4 Unchanged Methenamine (methenamine hippurate 1 gm oral tablet) 1 tab(s) Oral Twice a day 9pm 12/22 Unchanged Multivitamin Oral Twice a day 9pm 3 Unchanged Pantoprazole (pantoprazole 40 mg oral delayed release tablet) 1 tab(s) Oral Daily 9am 12/23 Unchanged Spironolactone (spironolactone 50 mg oral tablet) 1 tab(s) Oral Daily 9am 4 Pharm[facility] Information [facility]: [address], [place] [id number] [phone] ?? What How Much When Comments Stop Taking Esomeprazole (Nexium 40 mg oral enteric coated capsule) 1 capsule Oral Daily Stop Taking Losartan (losartan 100 mg oral tablet) 1 tab(s) Oral Daily Test Results Below is a partial list of the most recent Laboratory test results done prior to this discharge. You may have had other tests and procedures not included in this list. Please discuss all test resultswith your provider. AMYLASE (12/19/2022) ???Amylase - 82 units/L B Type Natriuretic Peptide (12/19/2022) ???Nt-Probnp - 766 pg/mL Basic Metabolic Panel (12/19/2022) ???Sodium - 137 mmol/L???Potassium - HEMOLYZED???Chloride - 103 mmol/L???Bicarbonate Level - 22 mmol/L???Anion Gap - 12???Glucose Level - 156 mg/dL???BUN - 30 mg/dL???Creatinine-Blood - 1.3 mg/dL???Estimated GFR Creatinine - 45 ML/MIN/1.73 M2???Calcium - 9.6 mg/dL BUN (12/22/2022) ???BUN - 23 mg/dL Calcium Level (12/21/2022) ???Calcium - 9.2 mg/dL CBC (12/22/2022) ???WBC - 6.4 k/mm3???RBC - 2.92 m/mm3???Hgb - 8.5 Gm/dL???Hct - 26.9 %???MCV - 92.1 femtoliters???MCH - 29.1 pg???MCHC - 31.6 g/dL???Platelet Count - 305 k/mm3???RDW-SD - 50.0 femtoliters???MPV - 10.8 femtoliters???Nucleated RBC (Automated) - 0.0 #/100 WBC'S???Abs. NRBC - 0.0 k/mm3 CBC w/ Differential (12/19/2022) ???WBC - 6.3 k/mm3???RBC - 3.44 m/mm3???Hgb - 10.0 Gm/dL???Hct - 31.9 %???MCV - 92.7 femtoliters???MCH - 29.1 pg???MCHC - 31.3 g/dL???Platelet Count - 318 k/mm3???RDW-SD - 49.9 femtoliters???MPV - 11.1 femtoliters???Nucleated RBC (Automated) - 0.0 #/100 WBC'S???Abs. NRBC - 0.0 k/mm3???Abs. Neut - 3.2 k/mm3???Abs. Lymph - 2.3 k/mm3???Abs. [place] - 0.5 k/mm3???Abs. Eo - 0.2 k/mm3???Abs. Baso - 0.1 k/mm3???Neut % - 50.9 %???Lymph % - 36.0 %???[place] % - 8.0 %???Eos % - 3.8 %???Baso % - 0.8 %???Imm Gran - 0.5 %???Abs. Imm Gran - 0.0 k/mm3 Comprehensive Metabolic Panel (12/20/2022) ???Sodium - 141 mmol/L???Potassium - 4.0 mmol/L???Chloride - 106 mmol/L???Bicarbonate Level - 25 mmol/L???Anion Gap - 10???Glucose Level - 176 mg/dL???BUN - 29 mg/dL???Creatinine-Blood - 1.4 mg/dL???Estimated GFR Creatinine - 42 ML/MIN/1.73 M2???Calcium - 9.2 mg/dL???Protein, Total - 5.9 Gm/dL???Alb umin - 3.2 Gm/dL???AG Ratio - 1.2???Alkaline Phosphatase - 108 units/L???AST (SGOT) - 83 units/L???ALT (SGPT) - 59 units/L???Bilirubin, Total - 0.2 mg/dL COVID-19 (2019 Novel Coronavirus) PCR (12/21/2022) ???COVID-19 PCR Specimen Source - NASAL???COVID-19 PCR Result - NEGATIVE COVID-19 RNA POC (12/19/2022) ???COVID-19 POC Result - NEGATIVE Creatinine (12/22/2022) ???Creatinine-Blood - 1.6 mg/dL???Estimated GFR Creatinine - 35 ML/MIN/1.73 M2 D-DIMER (12/19/2022) ???D-Dimer - 1.14 mg/L FEU Electrolytes (12/22/2022) ???Sodium - 141 mmol/L???Potassium - 4.2 mmol/L???Chloride - 103 mmol/L???Bicarbonate Level - 26 mmol/L???Anion Gap - 12 Glucose Level (12/21/2022) ???Glucose Level - 191 mg/dL GLUCOSE POC (12/22/2022) ???Glucose, POC - 181 mg/dL HEPATIC FUNCTION PANEL (12/19/2022) ???Protein, Total - 7.0 Gm/dL???Albumin - 3.5 Gm/dL???Alkaline Phosphatase - 118 units/L???AST (SGOT) - 68 units/L? ?ALT (SGPT) - 52 units/L? ?Bilirubin, Total - 0.2 mg/dL? ?Bilirubin, Direct - <0.2 mg/dL???Bilirubin, Indirect - Direct bilirubin is less than the measureable limit. Therefore, indirect High??Sensitivity??Troponin T (12/20/2022) ???High Sensitivity Troponin (HSTnT) - 87 ng/L Hold Blue Top Tube (12/19/2022) ???Hold Blue Top - SPECIMEN DISCARDED AFTER 4 HOURS. HOLD GREEN TUBE (12/20/2022) ???Hold Green Top - SPECIMEN DISCARDED AFTER 1 WEEK HOLD LAVENDER TUBE (12/20/2022) ???Hold Lavender Top - SPECIMEN DISCARDED AFTER 24 HOURS. LIPASE (12/19/2022) ???Lipase - 55 units/L Magnesium Level (12/21/2022) ???Magnesium - 1.9 mg/dL Potassium Level (12/20/2022) ???Potassium - 4.1 mmol/L PTT (12/21/2022) ???APTT - 42.8 seconds Troponin T, High Sensitivity (12/20/2022) ???High Sensitivity Troponin (HSTnT) - 76 ng/L TSH (12/20/2022) ???TSH - 1.85 uIU/mL Allergies (NKA means No Known Allergies) NKA Problems Active Problems??(12) Atypical chest pain?? Depression?? Diabetes (insulin dependent)?? Elevated Cholesterol?? Fall?? GERD?? HTN?? Knee pain, left?? Morbid Obesity?? Neuropathy?? Obese class II?? Retinopathy?? Education Materials Below is the list of Educational Leaflet Providered with your Discharge Instructions. Valuables and Belongings I fully understand and agree that [facility] accepts no responsibility for all [...] Review of Valuable and Belonging List: With patient, With witness Date for Pt to Sign Valuables/Belongings: 12/21/22 14:47:00 ?? Other Discharge Information ? Case Management Discharge Plan?? Discharge Plan?? Discharge Agency Information?? Discharge Level of Care at Discharge: Homehealth/VNA Name of Agency #1: [facility] Discharge VNA/Hospice/Home Care: [facility] [employer] Service Categories #1: Physical Therapy, Care Home ?? Service Comments #1: [facility] has been arranged to see you at home and will call to schedule a visit with you. If you do not hear from them, please call [phone] ?? Pulmonary Rehab Status?? Pulmonary Rehab Discharge [...] are strongly encouraged to quit. Please call [facility] [employer] [facility] at [phone] or [phone].JP ([phone]) or log in to [email or web address] for referrals to smoking cessation programs. ?? The National Suicide Prevention Hotline is available 11/06 if you or someone you know needs to find a reason to keep living. By calling 0-831-023-THERAVECTYS (1400) you'll be connected to a skilled, trained counselor at a crisis center in your area. INPATIENT DISCHARGE INSTRUCTIONS SIGNATURE CELINE ALEXY GUZMAN Location:[facility], [place] Registration Date and Time:12/20/2022 00:59 EST Primary Care Physician: Diana Romano MD D, I ALEXY GUZMAN, have received the above patient education materials/instructions and have verbalized understanding. If ambulance or transport services are being used I further acknowledge being givena choice of service. ?? If you need to contact me, please call me at this number: . Patient/Church Warden Name: Patient/Church Warden Signature: Relationship to Patient: Witness Name/Signature: Date: * [facility] , CIS S: TRANSCRIBE Bin AVILES, Mariaelena: VERIFY Event Display: Result: Authored Date: [id number] Chest 2 Views Frontal and Lat Hx of Present Illness: chest pain; Reason: Other:; Chest Pain; Clinical Question(s): Other: COMPARISON: 09/27/2018 FINDINGS: LINES AND TUBES: None. LUNGS AND PLEURA: Clear lungs. Normal pulmonary vascularity. No pleural effusion. No pneumothorax. HEART, MEDIASTINUM AND JUANCHO: Heart is normal in size. Normal mediastinal and hilar contour. BONES AND SOFT TISSUES: No acute abnormality. Degenerative changes of the thoracic spine with osteophytosis. IMPRESSION: No acute abnormality. WSN: [id number] Ordering Physician: Brianna Aviles Dictated By: Mariaelena Steward MD Dictated Date/Time: 12/19/22 4:11 pm Reviewed By: Mariaelena Steward MD Signed By: Mariaelena Steward MD Signed Date/Time: 12/19/22 4:11 pm Transcribed By: SADIQ Transcribed Date/Time: 12/19/22 4:07 pm * [facility] , CIS S: TRANSCRIBE Reji Benitez MD: VERIFY Laxmi Best MD: SIGN Event Display: Result: Authored Date: US RUQ HX OF PRESENT ILLNESS: chest pain; Reason: Abdominal Pain; Clinical Question(s): Cholecystitis COMPARISON: None. FINDINGS: Liver: Diffusely echogenic parenchyma. No suspicious lesion. Mildly nodular hepatic contour. Main portal vein patent with normal hepatopetal direction of flow. Gallbladder: Multiple layering gallstones with posterior acoustic shadowing. Distended gallbladder,measuring up to 4 cm in transverse diameter, with wall thickness measuring up to 0.3 cm, at the upper limits of normal. No pericholecystic fluid. Negative Garay sign. Biliary Tree: No intrahepatic or extrahepatic bile duct dilation is identified. Common duct measures: 0.5 cm. Pancreas: Obscured by overlying bowel gas. Right kidney: 11.9 cm in length. Normal parenchymal echotexture and thickness. No hydronephrosis, stone or mass. IMPRESSION: 1. Distended gallbladder with borderline wall thickening and cholelithiasis without pericholecysticfluid or sonographic Garay's sign. Findings are equivocal for diagnosis of acute cholecystitis. Ifclinical concern persists, further evaluation with HIDA scan should be considered. 2. Echogenic liver likely representing hepatic steatosis. Mildly nodular contour could indicate early cirrhotic changes. I have personally reviewed the images and I agree with this report. WSN: [id number] Ordering Physician: Maddison Jacome Dictated By: Laxmi Best MD Dictated Date/Time: 12/19/22 9:30 pm Reviewed By: Reji Benitez MD Signed By: Reji Benitez MD Signed Date/Time: 12/19/22 9:35 pm Transcribed By: SADIQ Transcribed Date/Time: 12/19/22 9:27 pm Hospital Progress note * Tita Sims RN: PERFORM, SIGN, VERIFY Event Display: Progress Note Hospital Authored Date: Patient: ALEXY GUZMAN Age: 71 years Sex: Female : 1950 Associated Diagnoses: None Author: Tita Sims RN Findings Narrative/Incidental Patient arrived to unit and recieved dose of ceftriaxone and Flagyl IV. Peripheral IV removed with tip intact. Patient brought to the main entrance where her was picking her up. Will continueto monitor.. Discharge Information Case Management Discharge Plan : Case Management Discharge Plan Data 12/22/2022 10:34 EST Discharge Level of Care at Discharge Homehealth/VNA Discharge VNA/Hospice/Home Care [employer] 12/22/2022 10:32 EST Discharge Level of Care at Discharge Homehealth/VNA Discharge VNA/Hospice/Home Care [employer] Name of Agency #1 [facility] Service Categories #1 Physical Therapy, Care Home Service Comments #1 [facility] has been arranged to see you at home and will call toschedule a visit with you. If you do not hear from them, please call [phone] Rehabilitation Discharge : Rehab Discharge Index 12/22/2022 9:42 EST Comments on treatment indicated 71 F p/w chest pain. EKG normal. US showed acute cholecystitis with Cholelithiasis. Unclear of origin of CP and pt is admitted for further work up. PT for strength, gait, balance, activity tolerance. Rec home c services Full chart review completed Yes Other findings See comment Plan of care PT Gait training, Transfer training, Therapeutic exercise, Functional Activities, Balance training * Josh Mina RN: PERFORM, MODIFY, SIGN, VERIFY Event Display: Progress Note Hospital Authored Date: Patient: ALEXY GUZMAN Age: 71 years Sex: Female : 1950 Associated Diagnoses: None Author: Ly RN, Josh Findings Nursing Data Vital Signs : VITAL SIGNS SECTION 12/22/2022 2:31 EST Temperature 98.3 DegF Temperature Route Oral Pulse Rate 74 bpm Respiratory Rate 18 br/min Systolic Blood Pressure 159 mm Hg H Diastolic Blood Pressure 62 mm Hg Blood pressure sites Arm, right Mean Arterial Pressure 94 mm Hg Pulse Pressure 97 mm Hg Oxygen Saturation 98 % Mode of Delivery (Oxygen) Room air 12/21/2022 21:13 EST Early Warning Score 2.00 12/21/2022 20:31 EST Early Warning Score 2.00 12/21/2022 20:30 EST Pulse Rate 72 bpm Systolic Blood Pressure 151 mm Hg H Diastolic Blood Pressure 60 mm Hg 12/21/2022 20:24 EST Early Warning Score 2.00 12/21/2022 20:23 EST Temperature 97.5 DegF Temperature Route Oral Pulse Rate 72 bpm Respiratory Rate 18 br/min Systolic Blood Pressure 151 mm Hg H Diastolic Blood Pressure 60 mm Hg Blood pressure sites Arm, right Mean Arterial Pressure 90 mm Hg Pulse Pressure 91 mm Hg Oxygen Saturation 100 % Mode of Delivery (Oxygen) Room air . Evaluation A/O x4, pleasant and MAEE strong throughout. She denies any CP/palpitations. She reports mild abdominal discomfort and c/o indigestion. PRN maalox administered for relief. No distress noted. No c/o SOB or n/v/d. OOb ad ambrocio. Scheduled flagyl administered as ordered. LR infusion completed. Safety/comfort maintained. Please see CIS for further assessments. . * Valeriano AVILES, Samira Shoemaker: PERFORM, MODIFY, MODIFY Event Display: Progress Note Hospital Authored Date: Patient: ??ALEXY GUZMAN ? Age:??71 Years?Sex:??Female?:??1950?? Subjective Seen and examined, vitals, labs and charts reviewed?? denied any new active complaint ; still have abdominal pain upper left and right Doppler BLE negative DC heparin gtt as unlikely ACS per cardiology; f/u outpt Surgery following : plan to get CT c/a/p to check for other sources of pain?? After discussion between multidisciplinary team , decided can be discharged with 5 days of oral Abx, f/u surgical clinic after cardiac w/u. Agreed w/ plan unless CT gives us new alarming findings. JERZY : IVF PT evaluation Review of Systems Past Medical History Active Problems??(6) Atypical chest pain Fall Knee pain, left Neuropathy Obese class II Retinopathy ? Past Surgical History BSO - Bilateral salpingo-oophorectomy: 03/13/16 Arthroscopy of shoulder Foot incision Abdominal hysterectomy Gastric restrictive procedure, without gastric bypass, for morbid obesity; other than vertical-banded gastroplasty ? Objective Vital Signs?? Temperature: 98.4 DegF (12/21/22 13:00:00) Temperature Route: Oral (12/21/22 13:00:00) Pulse Rate: 71 bpm (12/21/22 13:00:00) Respiratory Rate: 18 br/min (12/21/22 13:00:00) Systolic Blood Pressure:??151 mm Hg??High (12/21/22 13:00:00) Diastolic Blood Pressure: 62 mm Hg (12/21/22 13:00:00) Blood pressure sites: Arm, right (12/21/22 13:00:00) Mean Arterial Pressure: 89 mm Hg (12/21/22 00:15:00) Pulse Pressure: 89 mm Hg (12/21/22 13:00:00) Oxygen Saturation: 99 % (12/21/22 13:00:00) Mode of Delivery (Oxygen): Room air (12/21/22 13:00:00) Early Warning Score: 0 (12/21/22 13:56:08) ? Physical Exam ?? no acute distress, lying in bed, obese NC AT b/l air entry no added sounds s1s2, no MRG abdomen soft, upper abdominal pain and tender, no rebound tender, BS + no leg edema b/obese, l, peripheral pulses intact AAox3, no focal neuro deficits _ Inpatient Medications Medications (27) Active SCHEDULED: (12) Amlodipine 5 mg Tablet (amLODIPine 5 mg oral tablet) ??5 mg, By Mouth, Daily Aspirin 81 mg Chew Tablet (aspirin 81 mg oral tablet, chewable) ??81 mg, By Mouth, Daily Atorvastatin 40 mg Tablet (atorvastatin 40 mg oral tablet) ??40 mg, By Mouth, Daily at bedtime Carvedilol 6.25 mg Tablet (carvedilol 6.25 mg oral tablet) ??6.25 mg, By Mouth, 2 times a day Ceftriaxone 1 Gm Inj (Ceftriaxone Inj) ??1 Gm, IVPB, Every 24 hours Hydrochlorothiazide 25 mg Tablet (hydrochlorothiazide 25 mg oral tablet) ??25 mg, By Mouth, Daily Insulin Glargine 100 units/mL Inj (Lantus Inj) ??72 units 0.72 mL, Subcutaneous Injection, Daily atbedtime Insulin Lispro 100 units/mL Inj (3mL) (Insulin LISPRO Sliding Scale) ??2-10 units, Subcutaneous Injection, 3 times a day before meals Metronidazole 500 mg / NaCL 0.9% 100 mL (Flagyl IVPB) ??500 mg 100 mL, IVPB, Every 8 hours NaCl 0.9% Flush 3ml (NaCL 0.9% Flush) ??3 mL, IV Push, Every 8 hours Pantoprazole 40 mg EC Tablet (pantoprazole 40 mg oral delayed release tablet) ??40 mg, By Mouth, Daily Spironolactone 25 mg Tablet (spironolactone 25 mg oral tablet) ??50 mg, By Mouth, Daily CONTINUOUS: (0) PRN: (15) Acetaminophen 325 mg Tablet (Acetaminophen Tablet) ??650 mg, By Mouth, Every 4 hours Albuterol 90mcg/Inhalation Inhaler HFA (albuterol CFC free 90 mcg/inh inhalation aerosol) ??90 mcg 1 puffs, Inhalation, Every 4 hours Dextromethorphan-Guaifenesin 20 mg-200 mg/10 mL Liqu UD (Robitussin DM Liquid) ??10 mL, By Mouth, Every 4 hours Dextrose Inj Syringe (Dextrose 50% Inj Syringe (25Gm)) ??12.5 Gm, IV Push Slowly, Every 20 minutes Dextrose Inj Syringe (Dextrose 50% Inj Syringe (25Gm)) ??25 Gm, IV Push Slowly, Every 15 minutes Glucagon 1 mg Inj (Glucagon Inj) ??1 mg, Intramuscular, Once Glucose 40% Gel (15 Gm) (Glucose Gel) ??15 Gm, By Mouth, Every 20 minutes Glucose 40% Gel (15 Gm) (Glucose Gel) ??30 Gm, By Mouth, Every 20 minutes Lorazepam 0.5 mg Tablet (Ativan 0.5 mg oral tablet) ??0.5 mg, By Mouth, 3 times a day Melatonin 3 mg Tablet (Melatonin Tablet) ??3 mg, By Mouth, Daily at bedtime NaCl 0.9% Flush 3ml (NaCL 0.9% Flush) ??3 mL, IV Push, Every 8 hours Nitroglycerin 2% Oint UD (Nitroglycerin 2% Topical) ??0.5 inches, Topically, Every 4 hours Polyethylene Glycol 17 Gm Powder (MiraLax Powder) ??17 Gm 1 pack/packet, By Mouth, Daily Senna 8.6 mg / Docusate 50 mg tablet (Docusate/Senna Tablet) ??1 tablet, By Mouth, 2 times a day Simethicone 80 mg Chewable Tablet (Simethicone Tablet) ??80 mg, Chew, 3 times a day ? 72 Hour Antibiotic History Active Antibiotics Calendar Day Last Administered First Administered Ceftriaxone??1 Gm, 100 mL/hr, IVPB, Every 24 hours ?2 12/21/2022 11:47 12/20/2022 10:53 Metronidazole??500 mg, 100 mL, 100 mL/hr, IVPB, Every 8 hours ?2 12/21/2022 05:00 12/20/2022 11:13 ? Results Recent Labs BLOOD COUNT & DIFF WBC 6.9 k/mm3 ()?? 12/21/2022 05:12 RBC 2.92 m/mm3 (Low)?? 12/21/2022 05:12 Hgb 8.6 Gm/dL (Low)?? 12/21/2022 05:12 Hct 27.0 % (Low)?? 12/21/2022 05:12 MCV 92.5 femtoliters ()?? 12/21/2022 05:12 MCH 29.5 pg ()?? 12/21/2022 05:12 MCHC 31.9 g/dL (Low)?? 12/21/2022 05:12 Platelet Count 308 k/mm3 ()?? 12/21/2022 05:12 RDW-SD 50.2 femtoliters (High)?? 12/21/2022 05:12 MPV 11.4 femtoliters ()?? 12/21/2022 05:12 Nucleated RBC (Automated) 0.0 #/100 WBC'S ()?? 12/21/2022 05:12 Abs. NRBC 0.0 k/mm3 ()?? 12/21/2022 05:12 ?? CARDIAC High Sensitivity Troponin (HSTnT) 76 ng/L (Critical)?? 12/20/2022 19:49 ?? CHEM GENERAL Sodium 143 mmol/L ()?? 12/21/2022 05:12 Potassium 4.0 mmol/L ()?? 12/21/2022 05:12 Chloride 106 mmol/L ()?? 12/21/2022 05:12 Bicarbonate Level 24 mmol/L ()?? 12/21/2022 05:12 Anion Gap 13 ()?? 12/21/2022 05:12 Glucose Level 191 mg/dL (High)?? 12/21/2022 05:12 Glucose, POC 206 mg/dL (High)?? 12/21/2022 08:18 BUN 24 mg/dL (High)?? 12/21/2022 05:12 Creatinine-Blood 1.6 mg/dL (High)?? 12/21/2022 05:12 Estimated GFR Creatinine 34 ML/MIN/1.73 M2 ()?? 12/21/2022 05:12 Calcium 9.2 mg/dL ()?? 12/21/2022 05:12 Magnesium 1.9 mg/dL ()?? 12/21/2022 05:12 Protein, Total 5.9 Gm/dL (Low)?? 12/20/2022 08:04 Albumin 3.2 Gm/dL (Low)?? 12/20/2022 08:04 AG Ratio 1.2 ()?? 12/20/2022 08:04 Alkaline Phosphatase 108 units/L (High)?? 12/20/2022 08:04 AST (SGOT) 83 units/L (High)?? 12/20/2022 08:04 ALT (SGPT) 59 units/L (High)?? 12/20/2022 08:04 Bilirubin, Total 0.2 mg/dL ()?? 12/20/2022 08:04 ?? COAG APTT 42.8 seconds (High)?? 12/21/2022 10:45 ?? ENDOCRINE/TUMOR MARKER TSH 1.85 uIU/mL ()?? 12/20/2022 08:04 ?? HEME OTHER Hold Lavender Top SPECIMEN DISCARDED AFTER 24 HOURS. ()?? 12/20/2022 04:54 ?? MISC. CHEMISTRY Hold Green Top SPECIMEN DISCARDED AFTER 1 WEEK ()?? 12/20/2022 18:43 ? Assessment/Plan ? Diagnoses Atypical angina ??(I20.8) Cholecystitis ??(K81.9) Nausea ??(R11.0) Shortness of breath ??(R06.02) Unstable angina ??(I20.0) Vomiting ??(R11.10) ?? Ms. Guzman is a 71-year-old male medical history diabetes, peripheral neuropathy, GERD, hypertension, depression, obesity who presented to [facility] [place] with chest pain and admitted for NSTEMI ruled out. pancreatitis ?? Elevated troponin Demand ischemia vs NSTEMI - Trop elevated but flat - Heparin gtt discontinued as unlikely Acs per cardiology - [facility] consulted and recs appreciated : Will arrange outpt??PET??scan and f/u with Dr Torrez. - Nitropaste as needed for chest pain - Aspirin 81 mg daily - Atorvastatin 40 mg QHS - Repeat EKG PRN for rhythm changes/chest pain ?? #RUQ pain - Trend LFTs and lipase - Serial abdominal exam - cont Ceftriaxone and Flagyl - Surgery following 2/2 : Surgery following : plan to get CT c/a/p to check for other sources of pain?? After discussion between multidisciplinary team , decided can be discharged with 5 days of oral Abx, f/u surgical clinic after cardiac w/u. Agreed w/ plan unless CT gives us new alarming findings. JERZY : IVF PT evaluation ?? Acute kidney injury IVF??Gentle IV hydration avoid NSAIDs/Nephrotoxic medications Renally dose all medications ?? #Elevated D-dimer - LE US Doppler negative for DVT ?? Chronic, stable medical conditions: T2DM: Last A1c Oct 2022 7.6; Lantus 72U, SSI HLD:??atorvastatin HTN: Continue amlodipine, carvedilol, HCTZ, spironolactone CKD stage III: Baseline cr 1.3 ?? Quality Measures: DVT prophylaxis: heparin Diet: cardiac Code status: FULL ?? OMN : f/u CT result JERZY PT evaluation ?? updated daughter Crystal 12/21 ?? Disclaimer: ??This note ??was accomplished with use of [employer] voice recognition software, which is prone to medical and other word misidentifications and grammatical errors. ??The physician does strive to identify and correct these, but some could still be present. ??Please do not hesitate to contact the physician for clarifications. ? US.doppler Lower extremity vein - bilateral * [facility] , CIS S: TRANSCRIBE Raleigh He MD: VERIFY Event Display: Result: Authored Date: [id number] US Doppler Ext Lower Venous Bilat Reason: Other:; d-dimer elevated; Clinical Question(s): Thrombosis; Order Comment: 12 20 2022 07:38:48 EST- RN N A, will try later -MG 12 20 2022 18:37:32 EST- RN N Nava, will try later -MG COMPARISON: Left lower extremity venous duplex ultrasound 09/27/2018. IMAGING TECHNIQUE: Ultrasound of the veins from the groin through the calf was performed using grayscale, color, and spectral Doppler ultrasound assessing for complete compressibility and normal flowcharacteristics. FINDINGS: RIGHT LOWER EXTREMITY: Common femoral vein: Patent. No thrombosis. Femoral vein: Patent. No thrombosis. Popliteal vein: Patent. No thrombosis. Gastrocnemius veins: The visualized portions are patent without evidence of thrombosis. Peroneal veins: The visualized portions are patent without evidence of thrombosis. Posterior tibial veins: The visualized portions are patent without evidence of thrombosis. LEFT LOWER EXTREMITY: Common femoral vein: Patent. No thrombosis. Femoral vein: Patent. No thrombosis. Popliteal vein: Patent. No thrombosis. Gastrocnemius veins: The visualized portions are patent without evidence of thrombosis. Peroneal veins: The visualized portions are patent without evidence of thrombosis. Posterior tibial veins: The visualized portions are patent without evidence of thrombosis. OTHER FINDINGS: None. IMPRESSION: No evidence of deep venous thrombosis. WSN: [id number] Ordering Physician: Cinthia Medrano Dictated By: Raleigh He MD Dictated Date/Time: 12/21/22 8:08 am Reviewed By: Raleigh He MD Signed By: Raleigh He MD Signed Date/Time: 12/21/22 8:08 am Transcribed By: SADIQ Transcribed Date/Time: 12/21/22 8:[address] Abdomen and Pelvis W contrast IV * [facility] , CIS S: TRANSCClemente Amaya MD: VERIFY Montserrat Moise DO: SIGN Event Display: Result: Authored Date: [id number] CT Chest W/ Contrast, CT Abd/Pelvis W/ IV Contrast Only INDICATION: Reason: Acute Ilana TECHNIQUE: Helical CT scan of the chest, abdomen, and pelvis with IV contrast, formatted in 3 planes. 100 cc of Omnipaque 300 was administered intravenously. This study was performed without oral contrast. Weight-based protocol was performed using automatic exposure control. CTDIvol Body: 18.90 mGy, DLP Body: 1317 mGy*cm. COMPARISON: CT angiogram chest 03/30/2016. FINDINGS: Corporate Travel Counselor view findings, lines and tubes: None. Trachea and airways: Patent without evidence of tracheal or endobronchial lesion. Lungs and pleura: Tree-in-bud opacities seen in the lower segment of the right upper lobe and in the right lower lobe. Multiple pulmonary nodules seen in the right lung new from the prior exam. Findings described in reference to series 205. * The largest nodule is in the right upper lobe abutting the major fissure and measures 1 cm (image38) * 2 mm nodule in the right upper lobe (image 44) * 7 mm nodule in the right upper lobe (image 35) * 7 mm nodule in the right upper lobe (image 41) * 6 mm nodule in the right upper lobe (image 29) * 3 mm nodule in the right upper lobe (image 24) * 7 mm nodule along the right major fissure (image 59) * 5 mm nodule in the right upper lobe (image 39) * 7 mm nodule in the right upper lobe (image 40) Given the tree-in-bud distribution/peribronchovascular distribution of these nodules are most likely infectious or inflammatory in etiology and may be related to subclinical aspiration. No effusion or pneumothorax. Mediastinum and juancho: No mass or hematoma. No mediastinal or hilar lymphadenopathy . Paratracheal lymph nodes measuring up to 6 mm in short axis are most likely reactive. Esophagus is patulous with asmall volume of debris in the midportion of the esophagus. Normal thyroid. Heart: Heart is normal in size. No pericardial effusion. Mild coronary artery calcification. Aorta: Mild vascular calcification but no aneurysm. Aortic valve calcifications. Pulmonary arteries: Normal caliber. No evidence of pulmonary embolism on this study performed without angiographic technique. Chest wall soft tissues: No acute abnormality. Diaphragm: Intact. Liver: Diffuse low-attenuation throughout the liver parenchyma consistent with hepatic steatosis. No evidence of a suspicious lesion. Gallbladder: Gallbladder is mildly distended with gallstones seen. There is also intermediate attenuation sludge. No surrounding inflammation. No significant wall thickening. Bile ducts: No biliary ductal dilation. Spleen: Normal in size. Pancreas: Atrophic pancreatic parenchyma without ductal dilatation or suspicious lesion. Adrenal glands: No nodule. Kidneys and ureters: No hydronephrosis, stone, or suspicious lesion. Bladder: No wall thickening or surrounding stranding. Reproductive organs: Status post hysterectomy. No adnexal mass. Stomach, small bowel, and large bowel: Gastric band in place. Phi angle is 65 degrees. Increase from prior when it measured 47 degrees. No evidence of obstruction or inflammation. Appendix: No evidence of acute appendicitis. Peritoneum and retroperitoneum: No ascites or pneumoperitoneum. No omental or mesenteric lesions. Lymph nodes: No enlarged lymph nodes. Blood vessels: Moderate atherosclerotic vascular calcification. No aortic aneurysm. No evidence of venous thrombosis. Abdominal and pelvic wall soft tissues: Fat-containing periumbilical hernia. Gastric band tubing and port in the ventral abdominal wall. Bones: Mild multilevel degenerative changes in the lumbar spine. Anterior bridging osteophytes seenin the thoracic spine. Multilevel facet hypertrophy of the lumbar spine. No acute osseous abnormality. IMPRESSION: 1. Gallbladder is mildly distended with gallstones. No surrounding inflammation or wall thickening to suggest acute cholecystitis. Correlate with physical exam findings. 2. Multiple pulmonary nodules seen in the right upper lobe with adjacent tree-in-bud opacities seenin the inferior portion of the right upper lobe and in the superior portion of the right lower lobe. These findings are most likely infectious or inflammatory and may be related to silent aspiration,particularly given the patulous esophagus with a small amount of dependent debris in the midesophagus. Consider follow-up CT chest in 3 months to ensure resolution. 3. Mild flattening of the gastric band with a Phi angle of 65 degrees. Similar to findings from barium swallow dated 11/17/2019 where the Phi angle measures 62 degrees. I have personally reviewed the images and I agree with this report. WSN: [id number] Ordering Physician: Lazarus Navarro Dictated By: Montserrat Moise DO Dictated Date/Time: 12/21/22 2:43 pm Reviewed By: Clemente Currie MD Signed By: Clemente Currie MD Signed Date/Time: 12/21/22 2:48 pm Transcribed By: SADIQ Transcribed Date/Time: 12/21/22 1:[address] Chest W contrast IV * [facility]ers[facility] , CIS S: TRANSCRIBE Clemente Currie MD: VERIFY Montserrat Moise DO: SIGN Event Display: Result: Authored Date: [id number] CT Chest W/ Contrast, CT Abd/Pelvis W/ IV Contrast Only INDICATION: Reason: Acute Ilana TECHNIQUE: Helical CT scan of the chest, abdomen, and pelvis with IV contrast, formatted in 3 planes. 100 cc of Omnipaque 300 was administered intravenously. This study was performed without oral contrast. Weight-based protocol was performed using automatic exposure control. CTDIvol Body: 18.90 mGy, DLP Body: 1317 mGy*cm. COMPARISON: CT angiogram chest 03/30/2016. FINDINGS: Corporate Travel Counselor view findings, lines and tubes: None. Trachea and airways: Patent without evidence of tracheal or endobronchial lesion. Lungs and pleura: Tree-in-bud opacities seen in the lower segment of the right upper lobe and in the right lower lobe. Multiple pulmonary nodules seen in the right lung new from the prior exam. Findings described in reference to series 205. * The largest nodule is in the right upper lobe abutting the major fissure and measures 1 cm (image38) * 2 mm nodule in the right upper lobe (image 44) * 7 mm nodule in the right upper lobe (image 35) * 7 mm nodule in the right upper lobe (image 41) * 6 mm nodule in the right upper lobe (image 29) * 3 mm nodule in the right upper lobe (image 24) * 7 mm nodule along the right major fissure (image 59) * 5 mm nodule in the right upper lobe (image 39) * 7 mm nodule in the right upper lobe (image 40) Given the tree-in-bud distribution/peribronchovascular distribution of these nodules are most likely infectious or inflammatory in etiology and may be related to subclinical aspiration. No effusion or pneumothorax. Mediastinum and juancho: No mass or hematoma. No mediastinal or hilar lymphadenopathy . Paratracheal lymph nodes measuring up to 6 mm in short axis are most likely reactive. Esophagus is patulous with asmall volume of debris in the midportion of the esophagus. Normal thyroid. Heart: Heart is normal in size. No pericardial effusion. Mild coronary artery calcification. Aorta: Mild vascular calcification but no aneurysm. Aortic valve calcifications. Pulmonary arteries: Normal caliber. No evidence of pulmonary embolism on this study performed without angiographic technique. Chest wall soft tissues: No acute abnormality. Diaphragm: Intact. Liver: Diffuse low-attenuation throughout the liver parenchyma consistent with hepatic steatosis. No evidence of a suspicious lesion. Gallbladder: Gallbladder is mildly distended with gallstones seen. There is also intermediate attenuation sludge. No surrounding inflammation. No significant wall thickening. Bile ducts: No biliary ductal dilation. Spleen: Normal in size. Pancreas: Atrophic pancreatic parenchyma without ductal dilatation or suspicious lesion. Adrenal glands: No nodule. Kidneys and ureters: No hydronephrosis, stone, or suspicious lesion. Bladder: No wall thickening or surrounding stranding. Reproductive organs: Status post hysterectomy. No adnexal mass. Stomach, small bowel, and large bowel: Gastric band in place. Phi angle is 65 degrees. Increase from prior when it measured 47 degrees. No evidence of obstruction or inflammation. Appendix: No evidence of acute appendicitis. Peritoneum and retroperitoneum: No ascites or pneumoperitoneum. No omental or mesenteric lesions. Lymph nodes: No enlarged lymph nodes. Blood vessels: Moderate atherosclerotic vascular calcification. No aortic aneurysm. No evidence of venous thrombosis. Abdominal and pelvic wall soft tissues: Fat-containing periumbilical hernia. Gastric band tubing and port in the ventral abdominal wall. Bones: Mild multilevel degenerative changes in the lumbar spine. Anterior bridging osteophytes seenin the thoracic spine. Multilevel facet hypertrophy of the lumbar spine. No acute osseous abnormality. IMPRESSION: 1. Gallbladder is mildly distended with gallstones. No surrounding inflammation or wall thickening to suggest acute cholecystitis. Correlate with physical exam findings. 2. Multiple pulmonary nodules seen in the right upper lobe with adjacent tree-in-bud opacities seenin the inferior portion of the right upper lobe and in the superior portion of the right lower lobe. These findings are most likely infectious or inflammatory and may be related to silent aspiration,particularly given the patulous esophagus with a small amount of dependent debris in the midesophagus. Consider follow-up CT chest in 3 months to ensure resolution. 3. Mild flattening of the gastric band with a Phi angle of 65 degrees. Similar to findings from barium swallow dated 11/17/2019 where the Phi angle measures 62 degrees. I have personally reviewed the images and I agree with this report. WSN: [id number] Ordering Physician: Lazarus Navarro Dictated By: Montserrat Moise DO Dictated Date/Time: 12/21/22 2:43 pm Reviewed By: Clemente Currie MD Signed By: Clemente Currie MD Signed Date/Time: 12/21/22 2:48 pm Transcribed By: SADIQ Transcribed Date/Time: 12/21/22 1:50 pm Patient Care team information Care Team Personnel Name: Rosalina AVILES, Diana Worley Position: [facility] Physician (General Medicine) Member Role: PCP Address: Address: [address] [place] [address]- Name: Ruben Jensen RN Position: [facility] RN Member Role: Primary Care Nurse Name: Slick Martino RN Position: [facility] RN Member Role: Primary Care Nurse Name: Tita Sims RN Position: [facility] RN Member Role: Primary Care Nurse Name: Min URBAN Attending Position: [facility] ED Medicine MD Name: Timmy Ash RN Position: [facility] ED RN W/OE and Tasks Member Role: Patient Care Provider Name: Doyle Askew Position: [facility] ED RN W/OE and Tasks Member Role: Patient Care Provider Name: Grady Waldron Position: [facility] Associate Professional Member Role: ED Physician Special Warfare Combatant Crewman Address: Address: [address] [place] [address] [place] [address]- Name: Noris Carlin Position: [facility] ED TA [facility] Member Role: Gold Frame Assembler Care Team Related Persons Name: NBA COCHRANNAOMI Address: [place] [address] Name: CRYSTAL JOHNSON Address: home [address] [place] [address]
--- OUTSIDE RECORDS SUMMARY | 2024-04-25 10:16 | XMS_ITS | Continuity of Care Document ---
Author Organization [facility] Address [address] [place] [address]- Care Team Providers Care Pilot Teacher Name Role Phone Rosalina AVILES, Diana Worley Primary Care Physician Encounter [facility] Date(s): 11/26/23 - 12/26/[address] [address]- Allergies, Adverse Reactions, Alerts No Known Allergies Immunizations Given and Recorded Vaccine Date Status Refusal Reason influenza virus vaccine, inactivated 06/23/22 Anthony rded influenza virus vaccine, inactivated 07/15/21 Anthony rded influenza virus vaccine, inactivated 08/18/20 Anthony rded influenza virus vaccine, inactivated 08/05/20 Anthony rded influenza virus vaccine, inactivated 09/28/18 Give n influenza virus vaccine, inactivated 09/24/15 Anthony rded SARS-CoV-2 mRNA ([id number]) vax 06/23/22 Recorded SARS-CoV-2 (COVID-19) mRNA BNT-162b2 [...] 11/24/23 15:11:00 EST, Route to Pharmacy Electronically, [facility], Partial fill upon patient request [...] 11/24/23 15:13:00 EST, Route to Pharmacy Electronically, [facility], Partial... Start Date: 11/24/23 Status: Ordered furosemide 40 mg oral tablet 40 mg, By Mouth, 2 times a day, # 60 tablet, Refills 0, Tot. Refills 0, Maintenance, 11/24/23 15:11:00 EST, Route to Pharmacy Electronically, [facility], Partial fill upon patient request if the prescription is for a schedule II opioid d... Start Date: 11/24/23 Status: Ordered hydrALAZINE 50 mg oral tablet 1 tablet = 50 mg, By Mouth, 3 times a day, # 90 tablet, 0 Refills, Maintenance, 11/24/23 15:15:00 EST, Tablet, [facility], Partial fill upon patient request [...] Maintenance, 11/24/23 15:13:00 EST,Route to Pharmacy Electronically, [facility], Partial fill upon patient request if the prescription is for a schedule II opioid drug., 16... Start Date: 11/24/23 Status: Ordered pantoprazole 40 mg oral delayed release tablet 1 tablet = 40 mg, By Mouth, Daily, # 30 tablet, 0 Refills, Maintenance, 12/20/22 2:40:00 EST, EC Tablet Start Date: 12/20/22 Status: Ordered Potassium Chloride (Xhw-Jisk-Cev 10) 10 mEq oral tablet, extended release [...] class II Confirmed Active Retinopathy Confirmed Active Social History Social History Type Response Smoking Status Never smoker entered on: 09/14/15 Sex Patient Care team information Care Team Personnel Name: Anuradha Flores RN Position: S RN Member Role: Primary Care Nurse Name: Rosalina AVILES, Diana Worley Position: Reference Physician Member Role: PCP Address: Address: [address] [facility], [address] [place] [address]- [place] Name: Salena SCHROEDER, Slick Barlow Position: S RN Member Role: Primary Care Nurse Name: Matty Joel MD Position: S Renal MD Member Role: Lifetime Consulting Physician Address: Address: [address] [place] [address] [address] [facility], [place] [address]- [place] Name: Sudha Kee RN Position: S RN Member Role: Primary Care Nurse Name: Tita Sims RN Position: S RN Member Role: Primary Care Nurse Name: Krystyna Lin RN Position: S RN Member Role: Primary Care Nurse Care Team Related Persons Name: NBA COCHRANJOVANJULIA Address: [place] [address] Name: AMILCAR JOHNSON Address: home [address] [address]
--- OUTSIDE RECORDS SUMMARY | 2024-04-25 10:16 | XMS_ITS | Continuity of Care Document ---
Author Organization [facility] Address [address] [place] [address] ve [address] [place] [address]- Care Team Providers Care Animal Keeper Head Name Role Phone Rosalina AVILES, Diana Worley Primary Care Physician [phone] Encounter [facility] Date(s): 12/25/22 - 03/10/[address] [place], [place] [address] Attending Physician: Alvaro Flower MD Referring Physician: Diana Romano MD Allergies, Adverse [...] vaccine, inactivated 09/24/15 Anthony rded SARS-CoV-2 mRNA (peemjdn-fcvr-gjoyi) vax 06/23/22 Recorded SARS-CoV-2 (COVID-19) mRNA BNT-162b2 [...] Response Smoking Status Never smoker entered on: 10/27/15 Sex Patient Care team information Care Team Personnel Name: Anuradha Flores RN Position: S RN Member Role: Primary Care Nurse Name: Diana Romano MD Position: [facility] Physician (General Medicine) Member Role: PCP Address: Address: [address] [place] [address] Name: Ruben Jensen RN Position: S RN Member Role: Primary Care Nurse Name: Katty Garcia RN Position: [facility] RN [...] Persons Name: LEO COCHRAN Address: [place] [address] Name: AMILCAR JOHNSON Address: home [address] [place] [address]
--- OUTSIDE RECORDS SUMMARY | 2024-04-25 10:16 | XMS_ITS | Continuity of Care Document ---
Author Organization [facility] Address [address] [place] [address]- Care Team Providers Care Commanding Officer Traffic Division Name Role Phone Rosalina AVILES, Diana Worley Primary Care Physician [phone] Encounter [facility] Date(s): 01/17/20 - 01/17/[address] [address]- [facility] Encounter Diagnosis Knee pain, left(Final) - 01/17/20 Fall(Final) - 01/17/20 Discharge Disposition: A-D/C Home Attending Physician: Tracy Pastor DO Admitting Physician: Tracy Pastor DO Referring Physician: Not on Staff, Referring MD Allergies, Adverse Reactions, Alerts Substance Reaction [...] chest pain(Confirmed) Active Neuropathy(Confirmed) Active Retinopathy(Confirmed) Active Results Radiology Reports * Exam Date Time Procedure Performing Provider Status 01/17/20 4:11 PM Pelvis 1 or 2 Views Cassandra Quiroga [facility] (Verified) Notes: (Pelvis 1 or 2 Views) Reason For Exam: with Pain;Trauma RESULT: Pelvis 1 or 2 Views Pelvis 1 or 2 Views Refer to EMR; Reason: Trauma; with Pain; Clinical Question(s): Fracture; Hx of Present Illness: Slipped and fell in shower yesterday, hit head, c o dizziness, right shoulder, lip pain. COMPARISON: 04/06/2014 FINDINGS: There is no fracture or dislocation. Moderate joint space narrowing of the hips with mild osseous overgrowth. Mild degenerative changes of the lower lumbar spine. Multiple pelvic phleboliths. Unchanged dystrophic calcification in the left lower quadrant. IMPRESSION: No fracture or dislocation identified. WSN: [id number] Dictated By: Ricardo Humphries DO Dictated Date/Time: 01/17/20 4:30 pm Reviewed By: Ricardo Humphries DO Signed By: Ricardo Humphries DO Signed Date/Time: 01/17/20 4:30 pm Transcribed By: SADIQ Transcribed Date/Time: 01/17/20 4:27 pm Vital Signs Most recent to oldest [Reference Range]: 1 2 3 Oxygen Saturation [94-100 %] 98 % (01/17/20 6:49 PM) 99 % (01/17/20 5:06 PM) 100 % (01/17/20 1:21 PM) Pulse Rate [55-90 bpm] 68 bpm (01/17/20 6:49 PM) 65 bpm (01/17/20 5:06 PM) 75 bpm (01/17/20 1:21 PM) Blood Pressure [90-138/55-84 mm Hg] 164/68mm Hg *H* (01/17/20 6:49 PM) 168/84mm Hg *H* (01/17/20 5:06 PM) 150/61mm Hg *H* (01/17/20 1:21 PM) Respiratory Rate [16-30 br/min] 15 br/min *L* (01/17/20 6:49 PM) 18 br/min (01/17/20 5:06 PM) 16 br/min (01/17/20 1:21 PM) Temperature [96.8-100.4 DegF] 97.7 DegF (01/17/20 1:21 PM) 97.5 DegF (01/17/20 11:28 AM) Mode of Delivery (Oxygen) Room air (01/17/20 6:49 PM) Room air (01/17/20 5:06 PM) Room air (01/17/20 1:21 PM) Blood pressure sites Arm, left (01/17/20 6:49 PM) Arm, left (01/17/20 5:06 PM) Arm, left (01/17/20 1:21 PM) Temperature Route Oral (01/17/20 1:21 PM) Oral (01/17/20 11:28 AM) Dry Weight 110.5 kg (01/17/20 1:21 PM) 110.5 kg (01/17/20 11:28 AM) Social History Social History Type Response Smoking Status Never smoker entered on: 09/14/15 Sex
--- OUTSIDE RECORDS SUMMARY | 2024-04-25 10:16 | XMS_ITS | Continuity of Care Document ---
Author Organization [facility] ter Address [address] [place] [address]- Care Team Providers Care Frame Tender Name Role Phone Rosalina AVILES, Diana Brunilda Primary Care Physician Encounter [facility] Date(s): 01/07/20 - 03/11/[address] [address]- [facility] Attending Physician: Merlin Whipple MD Admitting Physician: Merlin Whipple MD Referring Physician: Merlin Whipple MD Allergies, Adverse Reactions, Alerts Substance Reaction [...]
== END 2024-04-23 09:22 | disposition home or self-care (01) ==
LOC: HO.HKAS 08:41
PROVIDERS: PCP Internal Medicine; Visit Provider Internal Medicine Hypertension Specialist
DX: E11.22 Type 2 diabetes mellitus with diabetic chronic kidney disease (principal); N18.4 Chronic kidney disease, stage 4 (severe)
CPT/HCPCS: 99214

== ENCOUNTER → 2024-04-23 08:41 | Outpatient (BNVA) | payer OTHER, SELFPAY | PROVIDERS: PCP Internal Medicine; Visit Provider Internal Medicine Hypertension Specialist | DX: E11.22 Type 2 diabetes mellitus with diabetic chronic kidney disease (principal); N18.9 Chronic kidney disease, unspecified | CPT/HCPCS: 99212 ==

== ENCOUNTER 2024-05-21 08:20 | Outpatient (AMB) | payer OTHER, SELFPAY ==
[2024-05-21 08:32] VITALS: BP 146/60; PULSE 67; O2SAT 98; BMI 34.7
--- NOTE | 2024-05-21 08:32 | HO.NEPHOV_ITS ---
Vital Signs 05/21/24 08:32 Height 5 ft 6 in Weight 215 lb BMI 34.7 BP 146/60 H Blood Pressure Location Rt brachial Position Sitting Pulse 67 Pulse Source Pulse Oximeter Pulse Oximetry (%) 98 Oxygen Delivery Method Room Air Intake Visit Reasons: 4wk follow up/ Conf Pizza Baker Required: No Accompanied by: Spouse Allergies No Known Allergies Allergy (Verified 05/21/24 08:34) HPI Comments Details: . 73-year-old pleasant woman with a history of diabetes mellitus for more than 35 years who was at chronic kidney disease. She was previously seen by a different vest front presser and was not happy with the care and therefore his desire to switch. She is history of congestive heart failure and was on Entresto Lasix and furosemide. Back in November of 2023 creatinine was 2.6 with EGFR of 19 mL/minute. During recent hospitalization medications were changed. Amlodipine and losartan discontinued. She is currently in nifedipine and hydralazine and carvedilol She continues to have back pain. She has no shortness of breath. No nausea vomiting. She has leg edema. No weight loss. All other systems were reviewed History of congestive heart failure with preserved ejection fraction. 05/21/24 Doing better today NO dyspnea PFSH Medical History (Updated 02/27/24 @ 10:16 by Martín De Luna MD) Chronic kidney disease Degenerative joint disease (DJD) of hip Cataract Bunion Fatty liver DJD (degenerative joint disease), lumbar DJD (degenerative joint disease), cervical Diabetes mellitus type 2 with neurological manifestations Vitamin D deficiency Urinary incontinence Allergic rhinitis GERD (gastroesophageal reflux disease) Depression Diabetic retinopathy Hypertension Hyperlipidemia Diabetic nephropathy Surgical History History of open heart surgery (~02/2023) History of adjustable gastric banding Social History Patient Tobacco Use Status: Never used Tobacco Physical Exam Vital Signs: Last Vital Signs Pulse 67 05/21/24 08:32 BP 146/60 H 05/21/24 08:32 Pulse Ox 98 05/21/24 08:32 Oxygen Delivery Method Room Air 05/21/24 08:32 BMI result Body Mass Index 34.7 Const General: comfortable; No acute distress Orientation/consciousness: patient oriented x3 Eyes General: appearance normal, both eyes and all related structures Visual Mazariegos: normal visual mazariegos by confrontation Neck Neck: Yes supple and Yes no JVD Resp Effort & Inspection: normal respiratory effort and respiratory effort not decreased Auscultation: rhonchi Cardio Palpation: no palpable S3 and no palpable S4 Heart sounds: no rubs GI Inspection: Yes normal to inspection Palpation (GI): Soft to palpation Percussion: Yes normal to percussion Auscultation: normal bowel sounds General: Yes no CVA tenderness Back/Spine/Pelvis Back: no CVA tenderness Skin General skin exam: no petechiae and no purpura Neuro General: patient oriented x3 and no focal motor deficits Extrem General: No clubbing and Yes edema Office Procedures Office Procedure Office Procedure Documentation Office Procedure Documentation: Retacrit 63039 units was administered subcutaneously left upper extremity. Lot : [id number] 10/2025 Office Meds epoetin disha-epbx 20,000 unit/mL injection solution Performing Provider: Martín De Luna MD Performing Location: [facility] [place] [facility] Documented (not given) by: Martín De Luna MD on 05/21/24 10:40 Dose Route Admin Location Dispensed Lot Number Expiration Date [employer] Instrument [employer] 20,000 unit subcut mL Results Reviewed Nephrology Results: Hgb 8.8 g/dl (12.0-16.0) L 04/08/24 WBC 6.6 X10*3/uL (4.8-10.8) 04/08/24 Plt Count 301 X10*3/uL (160-400) 04/08/24 Sodium 142 mmol/L (135-145) 04/08/24 Potassium 3.8 mmol/L (3.3-5.1) 04/08/24 Chloride 105 mmol/L (96-108) 04/08/24 Carbon Dioxide 25 mmol/L (22-29) 04/08/24 BUN 35 mg/dL (9-16) H 04/08/24 Creatinine 2.13 mg/dL (0.5-1.4) H 04/08/24 Calcium 9.6 mg/dL (8.4-10.2) 04/08/24 Phosphorus 3.5 mg/dL (2.7-4.5) 05/21/24 PTH Intact 155.1 pg/mL (8.7-77.1) H 04/08/24 Urine Creatinine 58.91 mg/dL 04/08/24 Assessment & Plan Assessment & Plan (1) Chronic kidney disease: Code(s): N18.9 - Chronic kidney disease, unspecified Category: Medical (2) Diabetes mellitus with chronic kidney disease: Code(s): E11.22 - Type 2 diabetes mellitus with diabetic chronic kidney disease Category: Medical Plan . 73-year-old woman with a history of longstanding diabetes mellitus and coronary disease with stage IV CKD. CKD is most likely due to underlying diabetic kidney disease. Nondiabetic causes seem unlikely based on the clinical picture. Creatinine is marginally better at 2.11. Goal at this point is to slow the progression of renal disease. Maintain blood pressure less than 130/80 Maintain A1c less than 7%. Continue with ARB for renal protection. She is on adequate dose of diuretics at this time. She should stay on low-sodium diet which I have discussed with her. She will benefit from SGLT2 inhibitors. Hypertension. Blood pressure was suboptimal. Keep hydralazine 75 mg 3 times a day. BP is better now Anemia: due to underlying erythropoietin deficiency. Iron stores are adequate. Administered Retacrit 85953 U . secondary hyperparathyroidism Mild elevation PTH. She will follow this and start her on vitamin D3 analog as needed. All questions were answered she will return to office in next 3-4 weeks Orders: Orders AMB Epoetin Injection Practice Supplied Today N18.9 - Chronic kidney disease, unspecified Medications: New epoetin disha-epbx 20,000 units subcut ONCE 1 mL 0RF N18.9 - Chronic kidney disease, unspecified Coding Level of Care Code Est Pt Level 4 (43612) Diagnoses Chronic kidney disease N18.9 Diabetes mellitus with chronic kidney disease E11.22
== END 2024-05-21 08:56 | disposition home or self-care (01) ==
PROVIDERS: PCP Internal Medicine; Visit Provider Internal Medicine Hypertension Specialist
DX: E11.22 Type 2 diabetes mellitus with diabetic chronic kidney disease (principal); N18.4 Chronic kidney disease, stage 4 (severe)
CPT/HCPCS: 99214

== ENCOUNTER → 2024-05-21 08:20 | Outpatient (BNVA) | payer OTHER, SELFPAY | PROVIDERS: PCP Internal Medicine; Visit Provider Internal Medicine Hypertension Specialist | DX: E11.22 Type 2 diabetes mellitus with diabetic chronic kidney disease (principal); N18.4 Chronic kidney disease, stage 4 (severe); D63.1 Anemia in chronic kidney disease | CPT/HCPCS: 96372; 99212; Q5106 ==

== ENCOUNTER 2024-06-18 10:22 | Outpatient (AMB) | payer OTHER, SELFPAY ==
--- NOTE | 2024-06-18 10:36 | HO.NEPHOV ---
Vital Signs 06/18/24 10:37 06/18/24 10:54 Height 5 ft 6 in Weight 219 lb BMI 35.3 BP 180/74 H 160/60 H Blood Pressure Location Rt brachial Lt brachial Position Sitting Sitting Pulse 80 Pulse Source Pulse Oximeter Pulse Oximetry (%) 96 Oxygen Delivery Method Room Air Intake Visit Reasons: 4 wks follow up Retacrit/ LVM Advertising Specialist Required: No Accompanied by: Spouse Allergies No Known Allergies Allergy (Verified 06/18/24 10:39) HPI Comments Details: . 73-year-old pleasant woman with a history of diabetes mellitus for more than 35 years who was at chronic kidney disease. She was previously seen by a different chargemaster specialist and was not happy with the care and therefore his desire to switch. She is history of congestive heart failure and was on Entresto Lasix and furosemide. Back in November of 2023 creatinine was 2.6 with EGFR of 19 mL/minute. During recent hospitalization medications were changed. Amlodipine and losartan discontinued. She is currently in nifedipine and hydralazine and carvedilol She continues to have back pain. She has no shortness of breath. No nausea vomiting. She has leg edema. No weight loss. All other systems were reviewed History of congestive heart failure with preserved ejection fraction. 05/21/24 Doing better today NO dyspnea 06/18/24 Admits to eating salty food [facility] Medical History (Updated 02/27/24 @ 10:16 by Martín De Luna MD) Chronic kidney disease Degenerative joint disease (DJD) of hip Cataract Bunion Fatty liver DJD (degenerative joint disease), lumbar DJD (degenerative joint disease), cervical Diabetes mellitus type 2 with neurological manifestations Vitamin D deficiency Urinary incontinence Allergic rhinitis GERD (gastroesophageal reflux disease) Depression Diabetic retinopathy Hypertension Hyperlipidemia Diabetic nephropathy Surgical History History of open heart surgery (~02/2023) History of adjustable gastric banding Social History Patient Tobacco Use Status: Never used Tobacco Physical Exam Vital Signs: Last Vital Signs Pulse 80 06/18/24 10:37 BP 180/74 H 06/18/24 10:37 Pulse Ox 96 06/18/24 10:37 Oxygen Delivery Method Room Air 06/18/24 10:37 BMI result Body Mass Index 35.3 Const General: comfortable; No acute distress Orientation/consciousness: patient oriented x3 Eyes General: appearance normal, both eyes and all related structures Visual Mazariegos: normal visual mazariegos by confrontation Neck Neck: Yes supple and Yes no JVD Resp Effort & Inspection: normal respiratory effort and respiratory effort not decreased Auscultation: rhonchi Cardio Palpation: no palpable S3 and no palpable S4 Heart sounds: no rubs GI Inspection: Yes normal to inspection Palpation (GI): Soft to palpation Percussion: Yes normal to percussion Auscultation: normal bowel sounds General: Yes no CVA tenderness Back/Spine/Pelvis Back: no CVA tenderness Skin General skin exam: no petechiae and no purpura Neuro General: patient oriented x3 and no focal motor deficits Extrem General: No clubbing and No edema Office Meds epoetin disha-epbx 20,000 unit/mL injection solution Performing Provider: Martín De Luna MD [place] [facility] [place] [facility] Administered by: Martín De Luna MD on 06/18/24 10:50 Dose Route Admin Location Dispensed Lot Number Expiration Date [facility] Candle Molder Machine 20,000 unit subcut 1 mL [id number] 10/19/25 0926-1463-56 [employer] Results Reviewed Results Reviewed: Hgb 8.9 Cr 2.3 eGFR 21 K 4.0 Nephrology Results: Hgb 8.8 g/dl (12.0-16.0) L 04/08/24 WBC 6.6 X10*3/uL (4.8-10.8) 04/08/24 Plt Count 301 X10*3/uL (160-400) 04/08/24 Sodium 142 mmol/L (135-145) 04/08/24 Potassium 3.8 mmol/L (3.3-5.1) 04/08/24 Chloride 105 mmol/L (96-108) 04/08/24 Carbon Dioxide 25 mmol/L (22-29) 04/08/24 BUN 35 mg/dL (9-16) H 04/08/24 Creatinine 2.13 mg/dL (0.5-1.4) H 04/08/24 Calcium 9.6 mg/dL (8.4-10.2) 04/08/24 Phosphorus 3.5 mg/dL (2.7-4.5) 04/08/24 PTH Intact 155.1 pg/mL (8.7-77.1) H 04/08/24 Urine Creatinine 58.91 mg/dL 04/08/24 Assessment & Plan Assessment & Plan (1) Chronic kidney disease: Code(s): N18.9 - Chronic kidney disease, unspecified Category: Medical (2) Diabetes mellitus with chronic kidney disease: Code(s): E11.22 - Type 2 diabetes mellitus with diabetic chronic kidney disease Category: Medical Plan . 73-year-old woman with a history of longstanding diabetes mellitus and coronary disease with stage IV CKD. CKD is most likely due to underlying diabetic kidney disease. Nondiabetic causes seem unlikely based on the clinical picture. Creatinine is marginally better at 2.11. Goal at this point is to slow the progression of renal disease. Maintain blood pressure less than 130/80 Maintain A1c less than 7%. Continue with ARB for renal protection. She is on adequate dose of diuretics at this time. She should stay on low-sodium diet which I have discussed with her. She will benefit from SGLT2 inhibitors. Hypertension. Blood pressure was suboptimal. Keep hydralazine 75 mg 3 times a day. BP is high from excessive salt intake today Watch for now If needed, would increase Hydralazine Anemia: due to underlying erythropoietin deficiency. Iron stores are adequate. Administered Retacrit 54806 U . secondary hyperparathyroidism Mild elevation PTH. She will follow this and start her on vitamin D3 analog as needed. All questions were answered she will return to office in next 3-4 weeks Orders: Orders Complete Blood Count Auto Diff 3 Weeks N18.9 - Chronic kidney disease, unspecified AMB Epoetin Injection Practice Supplied Today N40.1 - Benign prostatic hyperplasia with lower urinary tract symptoms Coding Level of Care Code Est Pt Level 3 (66519) Diagnoses Chronic kidney disease N18.9 Diabetes mellitus with chronic kidney disease E11.22
[2024-06-18 10:37] VITALS: BP 180/74; PULSE 80; O2SAT 96; BMI 35.3
[2024-06-18 10:54] VITALS: BP 160/60
== END 2024-06-18 10:59 | disposition home or self-care (01) ==
PROVIDERS: PCP Internal Medicine; Visit Provider Internal Medicine Hypertension Specialist
DX: E11.22 Type 2 diabetes mellitus with diabetic chronic kidney disease (principal); N18.4 Chronic kidney disease, stage 4 (severe); I50.32 Chronic diastolic (congestive) heart failure; D63.1 Anemia in chronic kidney disease
CPT/HCPCS: 99213

== ENCOUNTER → 2024-06-18 10:22 | Outpatient (BNVA) | payer OTHER, SELFPAY | PROVIDERS: PCP Internal Medicine; Visit Provider Internal Medicine Hypertension Specialist | DX: E11.22 Type 2 diabetes mellitus with diabetic chronic kidney disease (principal); N18.9 Chronic kidney disease, unspecified | CPT/HCPCS: 96372; 99212; Q5106 ==

== ENCOUNTER 2024-07-09 10:01 | Outpatient (AMB) | payer OTHER, SELFPAY ==
[2024-07-09 10:06] VITALS: BP 118/50; PULSE 64; O2SAT 97; BMI 35.8
--- NOTE | 2024-07-09 10:06 | HO.NEPHOV ---
Vital Signs 07/09/24 10:06 Height 5 ft 6 in Weight 222 lb BMI 35.8 BP 118/50 L Blood Pressure Location Rt brachial Position Sitting Pulse 64 Pulse Source Pulse Oximeter Pulse Oximetry (%) 97 Oxygen Delivery Method Room Air Intake Visit Reasons: 3-4 wks retacrit follow up/ LVM Lump Room Supervisor Required: No Accompanied by: Spouse Allergies No Known Allergies Allergy (Verified 07/09/24 10:09) Medication List - Last Reconciled 07/09/24 by Martín De Luna MD albuterol sulfate 90 mcg/actuation (ProAir HFA) 2 puffs inhalation Q6H PRN albuterol sulfate 90 mcg/actuation (ProAir RespiClick) 1 inh inhalation Q4-6H PRN aspirin 81 mg PO DAILY atorvastatin 80 mg PO DAILY carvedilol 12.5 mg PO BID cholecalciferol (vitamin D3) 50 mcg PO DAILY ferrous sulfate (FeroSul) 325 mg PO DAILY furosemide 40 mg PO BID hydralazine 75 mg (1.5 x 50 mg) PO TID insulin glargine (Lantus Solostar U-100 Insulin) 62 units subcut DAILY insulin lispro (Humalog KwikPen (U-100) Insulin) subcut metolazone 2.5 mg PO DAILY PRN nifedipine ER 60 mg PO DAILY pantoprazole 40 mg PO DAILY potassium chloride ER 10 mEq PO DAILY HPI Comments Details: . 73-year-old pleasant woman with a history of diabetes mellitus for more than 35 years who was at chronic kidney disease. She was previously seen by a different field ironworker and was not happy with the care and therefore his desire to switch. She is history of congestive heart failure and was on Entresto Lasix and furosemide. Back in November of 2023 creatinine was 2.6 with EGFR of 19 mL/minute. During recent hospitalization medications were changed. Amlodipine and losartan discontinued. She is currently in nifedipine and hydralazine and carvedilol She continues to have back pain. She has no shortness of breath. No nausea vomiting. She has leg edema. No weight loss. All other systems were reviewed History of congestive heart failure with preserved ejection fraction. 05/21/24;Doing better today NO dyspnea 06/18/24;Admits to eating salty food 07/09/24 Feels tired Took RSV and flu shots last week [facility] Medical History (Updated 07/09/24 @ 10:19 by Martín De Luna MD) Chronic kidney disease Degenerative joint disease (DJD) of hip Cataract Bunion Fatty liver DJD (degenerative joint disease), lumbar DJD (degenerative joint disease), cervical Diabetes mellitus type 2 with neurological manifestations Vitamin D deficiency Urinary incontinence Allergic rhinitis GERD (gastroesophageal reflux disease) Depression Diabetic retinopathy Hypertension Hyperlipidemia Diabetic nephropathy Surgical History History of open heart surgery (~02/2023) History of adjustable gastric banding Social History Patient Tobacco Use Status: Never used Tobacco Physical Exam Vital Signs: Last Vital Signs Pulse 64 07/09/24 10:06 BP 118/50 L 07/09/24 10:06 Pulse Ox 97 07/09/24 10:06 Oxygen Delivery Method Room Air 07/09/24 10:06 BMI result Body Mass Index 35.8 Const General: comfortable; No acute distress Orientation/consciousness: patient oriented x3 Eyes General: appearance normal, both eyes and all related structures Visual Mazariegos: normal visual mazariegos by confrontation Neck Neck: Yes supple and Yes no JVD Resp Effort & Inspection: normal respiratory effort and respiratory effort not decreased Auscultation: rhonchi Cardio Palpation: no palpable S3 and no palpable S4 Heart sounds: no rubs GI Inspection: Yes normal to inspection Palpation (GI): Soft to palpation Percussion: Yes normal to percussion Auscultation: normal bowel sounds General: Yes no CVA tenderness Back/Spine/Pelvis Back: no CVA tenderness Skin General skin exam: no petechiae and no purpura Neuro General: patient oriented x3 and no focal motor deficits Extrem General: No clubbing and No edema Office Meds epoetin disha-epbx 20,000 unit/mL injection solution Performing Provider: Martín De Luna MD [place] [facility] [place] [facility] Administered by: Martín De Luna MD on 07/09/24 10:24 Dose Route Admin Location Dispensed Lot Number Expiration Date [facility] Fitness Consultant 20,000 unit subcut rt arm 1 mL [id number] 10/19/25 0675-3924-12 [employer] Results Reviewed Nephrology Results: Hgb 8.8 g/dl (12.0-16.0) L 04/08/24 WBC 6.6 X10*3/uL (4.8-10.8) 04/08/24 Plt Count 301 X10*3/uL (160-400) 04/08/24 Sodium 142 mmol/L (135-145) 04/08/24 Potassium 3.8 mmol/L (3.3-5.1) 04/08/24 Chloride 105 mmol/L (96-108) 04/08/24 Carbon Dioxide 25 mmol/L (22-29) 04/08/24 BUN 35 mg/dL (9-16) H 04/08/24 Creatinine 2.13 mg/dL (0.5-1.4) H 04/08/24 Calcium 9.6 mg/dL (8.4-10.2) 04/08/24 Phosphorus 3.5 mg/dL (2.7-4.5) 04/08/24 PTH Intact 155.1 pg/mL (8.7-77.1) H 04/08/24 Urine Creatinine 58.91 mg/dL 04/08/24 Assessment & Plan Assessment & Plan (1) Chronic kidney disease: Code(s): N18.9 - Chronic kidney disease, unspecified Category: Medical (2) Diabetes mellitus with chronic kidney disease: Code(s): E11.22 - Type 2 diabetes mellitus with diabetic chronic kidney disease Category: Medical (3) Anemia: Code(s): D64.9 - Anemia, unspecified Category: Medical Plan . 73-year-old woman with a history of longstanding diabetes mellitus and coronary disease with stage IV CKD. CKD is most likely due to underlying diabetic kidney disease. Nondiabetic causes seem unlikely based on the clinical picture. Creatinine is marginally better at 2.11. Goal at this point is to slow the progression of renal disease. Maintain blood pressure less than 130/80 Maintain A1c less than 7%. Continue with ARB for renal protection. She is on adequate dose of diuretics at this time. She should stay on low-sodium diet which I have discussed with her. She will benefit from SGLT2 inhibitors. Hypertension. Blood pressure is better today Keep hydralazine 75 mg 3 times a day. Watch for now Anemia: due to underlying erythropoietin deficiency. Iron stores are adequate. Administered Retacrit 20938 U .rt arm- SQ secondary hyperparathyroidism Mild elevation PTH. She will follow this and start her on vitamin D3 analog as needed. All questions were answered she will return to office in next 3-4 weeks Orders: Orders Complete Blood Count Auto Diff 3 Weeks D64.9 - Anemia, unspecified, N18.9 - Chronic kidney disease, unspecified Comprehensive Met. Panel 3 Weeks D64.9 - Anemia, unspecified, N18.9 - Chronic kidney disease, unspecified IRON PROFILE 3 Weeks D64.9 - Anemia, unspecified, N18.9 - Chronic kidney disease, unspecified AMB Epoetin Injection Practice Supplied Today D64.9 - Anemia, unspecified, N18.9 - Chronic kidney disease, unspecified Medications: New epoetin disha-epbx 20,000 units subcut ONCE 1 mL 0RF anemia D64.9 - Anemia, unspecified, N18.9 - Chronic kidney disease, unspecified ferrous sulfate (FeroSul) 325 mg PO DAILY 90 tabs 1RF Coding Level of Care Code Est Pt Level 4 (17744) Complex EM visit Add On G2211 Diagnoses Chronic kidney disease N18.9 Diabetes mellitus with chronic kidney disease E11.22 Anemia D64.9
== END 2024-07-09 10:24 | disposition home or self-care (01) ==
PROVIDERS: PCP Internal Medicine; Visit Provider Internal Medicine Hypertension Specialist
DX: E11.22 Type 2 diabetes mellitus with diabetic chronic kidney disease (principal); N18.9 Chronic kidney disease, unspecified; D64.9 Anemia, unspecified
CPT/HCPCS: 99214; G2211

== ENCOUNTER → 2024-07-09 10:01 | Outpatient (BNVA) | payer OTHER, SELFPAY | PROVIDERS: PCP Internal Medicine; Visit Provider Internal Medicine Hypertension Specialist | DX: E11.22 Type 2 diabetes mellitus with diabetic chronic kidney disease (principal); N18.4 Chronic kidney disease, stage 4 (severe); D63.1 Anemia in chronic kidney disease | CPT/HCPCS: 96372; 99212; Q5106 ==

== ENCOUNTER 2024-08-06 08:17 | Outpatient (AMB) | payer OTHER, SELFPAY ==
[2024-08-06 08:25] VITALS: BP 168/62; PULSE 69; O2SAT 97; BMI 35.7
--- NOTE | 2024-08-06 08:25 | HO.NEPHOV_ITS ---
Vital Signs 08/06/24 08:25 Height 5 ft 6 in Weight 221 lb BMI 35.7 BP 168/62 H Blood Pressure Location Lt brachial Position Sitting Pulse 69 Pulse Source Pulse Oximeter Pulse Oximetry (%) 97 Oxygen Delivery Method Room Air Intake Visit Reasons: 4 wks follow up/ LVM Database Programmer Analyst Required: No Accompanied by: Spouse Allergies No Known Allergies Allergy (Verified 08/06/24 08:31) Medication List - Last Reconciled 08/06/24 by Martín De Luna MD albuterol sulfate 90 mcg/actuation (ProAir HFA) 2 puffs inhalation Q6H PRN albuterol sulfate 90 mcg/actuation (ProAir RespiClick) 1 inh inhalation Q4-6H PRN aspirin 81 mg PO DAILY atorvastatin 80 mg PO DAILY carvedilol 12.5 mg PO BID cholecalciferol (vitamin D3) 50 mcg PO DAILY ferrous sulfate (FeroSul) 325 mg PO DAILY furosemide 40 mg PO BID hydralazine 75 mg (1.5 x 50 mg) PO TID insulin glargine (Lantus Solostar U-100 Insulin) 62 units subcut DAILY insulin lispro (Humalog KwikPen (U-100) Insulin) subcut metolazone 2.5 mg PO DAILY PRN nifedipine ER 60 mg PO DAILY pantoprazole 40 mg PO DAILY potassium chloride ER 10 mEq PO DAILY HPI Comments Details: . 73-year-old pleasant woman with a history of diabetes mellitus for more than 35 years who was at chronic kidney disease. She was previously seen by a different automatic thread winder and was not happy with the care and therefore his desire to switch. She is history of congestive heart failure and was on Entresto Lasix and furosemide. Back in November of 2023 creatinine was 2.6 with EGFR of 19 mL/minute. During recent hospitalization medications were changed. Amlodipine and losartan discontinued. She is currently in nifedipine and hydralazine and carvedilol She continues to have back pain. She has no shortness of breath. No nausea vomiting. She has leg edema. No weight loss. All other systems were reviewed History of congestive heart failure with preserved ejection fraction. 05/21/24;Doing better today NO dyspnea 06/18/24;Admits to eating salty food 07/09/24 Feels tired Took RSV and flu shots last week [facility] Medical History (Updated 07/09/24 @ 10:19 by Martín De Luna MD) Chronic kidney disease Degenerative joint disease (DJD) of hip Cataract Bunion Fatty liver DJD (degenerative joint disease), lumbar DJD (degenerative joint disease), cervical Diabetes mellitus type 2 with neurological manifestations Vitamin D deficiency Urinary incontinence Allergic rhinitis GERD (gastroesophageal reflux disease) Depression Diabetic retinopathy Hypertension Hyperlipidemia Diabetic nephropathy Surgical History History of open heart surgery (~02/2023) History of adjustable gastric banding Social History Patient Tobacco Use Status: Never used Tobacco Physical Exam Vital Signs: Last Vital Signs Pulse 69 08/06/24 08:25 BP 168/62 H 08/06/24 08:25 Pulse Ox 97 08/06/24 08:25 Oxygen Delivery Method Room Air 08/06/24 08:25 BMI result Body Mass Index 35.7 Const General: comfortable; No acute distress Orientation/consciousness: patient oriented x3 Eyes General: appearance normal, both eyes and all related structures Visual Mazariegos: normal visual mazariegos by confrontation Neck Neck: Yes supple and Yes no JVD Resp Effort & Inspection: normal respiratory effort and respiratory effort not decreased Auscultation: rhonchi Cardio Palpation: no palpable S3 and no palpable S4 Heart sounds: no rubs GI Inspection: Yes normal to inspection Palpation (GI): Soft to palpation Percussion: Yes normal to percussion Auscultation: normal bowel sounds General: Yes no CVA tenderness Back/Spine/Pelvis Back: no CVA tenderness Skin General skin exam: no petechiae and no purpura Neuro General: patient oriented x3 and no focal motor deficits Extrem General: No clubbing and No edema Office Meds epoetin dsiha-epbx 20,000 unit/mL injection solution Performing Provider: Martín De Luna MD Performing Location: [facility] [place] [facility] Administered by: Martín De Luna MD on 08/06/24 08:44 Dose Route Admin Location Dispensed Lot Number Expiration Date [facility] Account Solutions Analyst 20,000 unit subcut right arm 1 mL [id number] 10/19/25 8774-1442-76 [employer] Results Reviewed Results Reviewed: 08/04/24 Cr 2.2 Hgb 8.3 Nephrology Results: Hgb 8.8 g/dl (12.0-16.0) L 04/08/24 WBC 6.6 X10*3/uL (4.8-10.8) 04/08/24 Plt Count 301 X10*3/uL (160-400) 04/08/24 Sodium 142 mmol/L (135-145) 04/08/24 Potassium 3.8 mmol/L (3.3-5.1) 04/08/24 Chloride 105 mmol/L (96-108) 04/08/24 Carbon Dioxide 25 mmol/L (22-29) 04/08/24 BUN 35 mg/dL (9-16) H 04/08/24 Creatinine 2.13 mg/dL (0.5-1.4) H 04/08/24 Calcium 9.6 mg/dL (8.4-10.2) 04/08/24 Phosphorus 3.5 mg/dL (2.7-4.5) 04/08/24 PTH Intact 155.1 pg/mL (8.7-77.1) H 04/08/24 Urine Creatinine 58.91 mg/dL 04/08/24 Assessment & Plan Assessment & Plan (1) Chronic kidney disease: Code(s): N18.9 - Chronic kidney disease, unspecified Category: Medical (2) Anemia: Code(s): D64.9 - Anemia, unspecified Category: Medical (3) Diabetes mellitus with chronic kidney disease: Code(s): E11.22 - Type 2 diabetes mellitus with diabetic chronic kidney disease Category: Medical Plan . 73-year-old woman with a history of longstanding diabetes mellitus and coronary disease with stage IV CKD. CKD is most likely due to underlying diabetic kidney disease. Nondiabetic causes seem unlikely based on the clinical picture. Creatinine is marginally better at 2.11. Goal at this point is to slow the progression of renal disease. Maintain blood pressure less than 130/80 Maintain A1c less than 7%. Continue with ARB for renal protection. She is on adequate dose of diuretics at this time. She should stay on low-sodium diet which I have discussed with her. She will benefit from SGLT2 inhibitors. Hypertension. Blood pressure is better today Keep hydralazine 75 mg 3 times a day. Watch for now Anemia: due to underlying erythropoietin deficiency. Iron stores are adequate. Administered Retacrit 62399 U .rt arm- SQ secondary hyperparathyroidism Mild elevation PTH. She will follow this and start her on vitamin D3 analog as needed. All questions were answered she will return to office in next 2 weeks Orders: Orders AMB Epoetin Injection Practice Supplied Today D64.9 - Anemia, unspecified, N18.9 - Chronic kidney disease, unspecified, N40.1 - Benign prostatic hyperplasia with lower urinary tract symptoms Medications: New epoetin disha-epbx 20,000 units subcut ONCE 1 mL 0RF anemia D64.9 - Anemia, unspecified, N18.9 - Chronic kidney disease, unspecified, N40.1 - Benign prostatic hyperplasia with lower urinary tract symptoms Coding Level of Care Code Est Pt Level 4 (07649) Diagnoses Chronic kidney disease N18.9 Anemia D64.9 Diabetes mellitus with chronic kidney disease E11.22
== END 2024-08-06 08:48 | disposition home or self-care (01) ==
PROVIDERS: PCP Internal Medicine; Visit Provider Internal Medicine Hypertension Specialist
DX: D64.9 Anemia, unspecified (principal); E11.22 Type 2 diabetes mellitus with diabetic chronic kidney disease; N18.9 Chronic kidney disease, unspecified
CPT/HCPCS: 99214

== ENCOUNTER → 2024-08-06 08:17 | Outpatient (BNVA) | payer OTHER, SELFPAY | PROVIDERS: PCP Internal Medicine; Visit Provider Internal Medicine Hypertension Specialist | DX: E11.40 Type 2 diabetes mellitus with diabetic neuropathy, unspecified (principal); E11.22 Type 2 diabetes mellitus with diabetic chronic kidney disease; N18.4 Chronic kidney disease, stage 4 (severe); D63.1 Anemia in chronic kidney disease | CPT/HCPCS: 96372; 99212; Q5106 ==

== ENCOUNTER 2024-08-20 08:49 | Outpatient (AMB) | payer OTHER, SELFPAY ==
[2024-08-20 08:58] VITALS: PULSE 59; O2SAT 98
--- NOTE | 2024-08-20 08:58 | HO.NEPHOV_ITS ---
Vital Signs 08/20/24 08:58 Height 5 ft 6 in Pulse 59 Pulse Source Pulse Oximeter Pulse Oximetry (%) 98 Oxygen Delivery Method Room Air Intake Visit Reasons: 2 wks retacrit/ Conf Dieing Out Machine Operator Required: No Accompanied by: Spouse Allergies No Known Allergies Allergy (Verified 08/20/24 09:00) HPI Comments Details: . 73-year-old pleasant woman with a history of diabetes mellitus for more than 35 years who was at chronic kidney disease. She was previously seen by a different bottle packer and was not happy with the care and therefore his desire to switch. She is history of congestive heart failure and was on Entresto Lasix and furosemide. Back in November of 2023 creatinine was 2.6 with EGFR of 19 mL/minute. During recent hospitalization medications were changed. Amlodipine and losartan discontinued. She is currently in nifedipine and hydralazine and carvedilol She continues to have back pain. She has no shortness of breath. No nausea vomiting. She has leg edema. No weight loss. All other systems were reviewed History of congestive heart failure with preserved ejection fraction. 05/21/24;Doing better today NO dyspnea 06/18/24;Admits to eating salty food 07/09/24 Feels tired Took RSV and flu shots last week [facility] Medical History (Updated 07/09/24 @ 10:19 by Martín De Luna MD) Chronic kidney disease Degenerative joint disease (DJD) of hip Cataract Bunion Fatty liver DJD (degenerative joint disease), lumbar DJD (degenerative joint disease), cervical Diabetes mellitus type 2 with neurological manifestations Vitamin D deficiency Urinary incontinence Allergic rhinitis GERD (gastroesophageal reflux disease) Depression Diabetic retinopathy Hypertension Hyperlipidemia Diabetic nephropathy Surgical History History of open heart surgery (~02/2023) History of adjustable gastric banding Social History Patient Tobacco Use Status: Never used Tobacco Physical Exam Vital Signs: Last Vital Signs Pulse 59 08/20/24 08:58 Pulse Ox 98 08/20/24 08:58 Oxygen Delivery Method Room Air 08/20/24 08:58 Office Meds epoetin disha-epbx 20,000 unit/mL injection solution Performing Provider: Martín De Luna MD [place] [facility] [place] [facility] Administered by: Martín De Luna MD on 08/20/24 09:14 Dose Route Admin Location Dispensed Lot Number Expiration Date [facility] Chief Projectionist 20,000 unit subcut left arm 1 mL [id number] 10/19/25 1554-1671-99 [employer] Results Reviewed Nephrology Results: Hgb 8.8 g/dl (12.0-16.0) L 04/08/24 WBC 6.6 X10*3/uL (4.8-10.8) 04/08/24 Plt Count 301 X10*3/uL (160-400) 04/08/24 Sodium 142 mmol/L (135-145) 04/08/24 Potassium 3.8 mmol/L (3.3-5.1) 04/08/24 Chloride 105 mmol/L (96-108) 04/08/24 Carbon Dioxide 25 mmol/L (22-29) 04/08/24 BUN 35 mg/dL (9-16) H 04/08/24 Creatinine 2.13 mg/dL (0.5-1.4) H 04/08/24 Calcium 9.6 mg/dL (8.4-10.2) 04/08/24 Phosphorus 3.5 mg/dL (2.7-4.5) 04/08/24 PTH Intact 155.1 pg/mL (8.7-77.1) H 04/08/24 Urine Creatinine 58.91 mg/dL 04/08/24 Assessment & Plan Assessment & Plan (1) Chronic kidney disease: Code(s): N18.9 - Chronic kidney disease, unspecified Category: Medical (2) Anemia: Code(s): D64.9 - Anemia, unspecified Category: Medical (3) Diabetes mellitus with chronic kidney disease: Code(s): E11.22 - Type 2 diabetes mellitus with diabetic chronic kidney disease Category: Medical Plan . 73-year-old woman with a history of longstanding diabetes mellitus and coronary disease with stage IV CKD. CKD is most likely due to underlying diabetic kidney disease. Nondiabetic causes seem unlikely based on the clinical picture. Creatinine is marginally better at 2.11. Goal at this point is to slow the progression of renal disease. Maintain blood pressure less than 130/80 Maintain A1c less than 7%. Continue with ARB for renal protection. She is on adequate dose of diuretics at this time. She should stay on low-sodium diet which I have discussed with her. She will benefit from SGLT2 inhibitors. Hypertension. Blood pressure is better today Keep hydralazine 75 mg 3 times a day. Watch for now Anemia: due to underlying erythropoietin deficiency. Iron stores are adequate. Administered Retacrit 98460 U .rt arm- SQ secondary hyperparathyroidism Mild elevation PTH. She will follow this and start her on vitamin D3 analog as needed. All questions were answered she will return to office in next 2 weeks Orders: Orders AMB Epoetin Injection Practice Supplied Today N40.1 - Benign prostatic hyperplasia with lower urinary tract symptoms Complete Blood Count Auto Diff 2 Weeks N18.9 - Chronic kidney disease, unspecified Basic Metabolic Panel 2 Weeks N18.9 - Chronic kidney disease, unspecified Medications: New epoetin disha-epbx 20,000 units subcut ONCE 1 mL 0RF anemia N40.1 - Benign prostatic hyperplasia with lower urinary tract symptoms Coding Level of Care Code Est Pt Level 3 (33846) Diagnoses Chronic kidney disease N18.9 Anemia D64.9 Diabetes mellitus with chronic kidney disease E11.22
== END 2024-08-20 09:12 | disposition home or self-care (01) ==
PROVIDERS: PCP Internal Medicine; Visit Provider Internal Medicine Hypertension Specialist
DX: E11.22 Type 2 diabetes mellitus with diabetic chronic kidney disease (principal); N18.9 Chronic kidney disease, unspecified; D64.9 Anemia, unspecified; N40.1 Benign prostatic hyperplasia with lower urinary tract symptoms
CPT/HCPCS: 99213

== ENCOUNTER → 2024-08-20 08:49 | Outpatient (BNVA) | payer OTHER, SELFPAY | PROVIDERS: PCP Internal Medicine; Visit Provider Internal Medicine Hypertension Specialist | DX: E11.22 Type 2 diabetes mellitus with diabetic chronic kidney disease (principal); N18.4 Chronic kidney disease, stage 4 (severe); D63.1 Anemia in chronic kidney disease | CPT/HCPCS: 96372; 99212; Q5106 ==

== ENCOUNTER 2024-09-10 08:32 | Outpatient (AMB) | payer OTHER, SELFPAY ==
--- NOTE | 2024-09-10 08:41 | HO.NEPHOV ---
Vital Signs 09/10/24 08:45 Height 5 ft 6 in BP 162/64 H Blood Pressure Location Lt brachial Position Sitting Pulse 63 Pulse Source Pulse Oximeter Pulse Oximetry (%) 97 Oxygen Delivery Method Room Air Intake Visit Reasons: 3 wks retacrit/ LVM Department Sales Manager Required: No Accompanied by: Spouse Allergies No Known Allergies Allergy (Verified 09/10/24 08:46) Medication List - Last Reconciled 09/10/24 by Anuradha Villatoro, DNP, MANAGER DEPARTMENT-BC albuterol sulfate 90 mcg/actuation (ProAir HFA) 2 puffs inhalation Q6H PRN albuterol sulfate 90 mcg/actuation (ProAir RespiClick) 1 inh inhalation Q4-6H PRN aspirin 81 mg PO DAILY atorvastatin 80 mg PO DAILY carvedilol 12.5 mg PO BID cholecalciferol (vitamin D3) 50 mcg PO DAILY ferrous sulfate (FeroSul) 325 mg PO DAILY furosemide 40 mg PO BID hydralazine 75 mg (1.5 x 50 mg) PO TID insulin glargine (Lantus Solostar U-100 Insulin) 62 units subcut DAILY insulin lispro (Humalog KwikPen (U-100) Insulin) subcut metolazone 2.5 mg PO DAILY PRN nifedipine ER 60 mg PO DAILY pantoprazole 40 mg PO DAILY potassium chloride ER 10 mEq PO DAILY HPI Comments Details: 73-year-old pleasant woman with a history of diabetes mellitus for more than 35 years who was at chronic kidney disease. She is history of congestive heart failure and was on Entresto Lasix and furosemide. Back in November of 2023 creatinine was 2.6 with EGFR of 19 mL/minute. She is currently in nifedipine 60mg daily, hydralazine 75mg TID, carvedilol 12.5mg BID and furosemide 40mg PO BID She continues to have back pain. She has chronic shortness of breath (reports since prior to heart surgery last year which she states did not really help her breathing much. States at rest is ok, with exertion continues to have some dyspnea chronically). No nausea, vomiting. She has leg edema. Wears compression stockings. No weight loss. All other systems were reviewed History of congestive heart failure with preserved ejection fraction. 09/10/24 reports shortness of breath for a while now reports a year ago had open heart surgery, reports before then had it but surgery didn't make it better and has continued blood pressure medications- reports has not taken yet this a.m. Reports SBP at home is usually in 130s. [facility] Medical History (Updated 09/10/24 @ 09:22 by Anuradha Villatoro DNP, FNP-BC) Chronic kidney disease Degenerative joint disease (DJD) of hip Cataract Bunion Fatty liver DJD (degenerative joint disease), lumbar DJD (degenerative joint disease), cervical Diabetes mellitus type 2 with neurological manifestations Vitamin D deficiency Urinary incontinence Allergic rhinitis GERD (gastroesophageal reflux disease) Depression Diabetic retinopathy Hypertension Hyperlipidemia Diabetic nephropathy Surgical History History of open heart surgery (~02/2023) History of adjustable gastric banding Social History Patient Tobacco Use Status: Never used Tobacco Review of Systems Const Denies anorexia, Denies fever(s) and Denies weakness Card Denies no additional complaints and Denies dyspnea Resp Reports no additional complaints and Denies dyspnea Denies hematuria Musc Denies tingling Skin/Breast Denies rash Neuro Denies focal weakness, Denies tingling, Denies tremor(s) and Denies weakness Physical Exam Const General: comfortable and no acute distress Neck Neck: Yes no JVD Resp Effort & Inspection: able to speak in complete sentences Auscultation: clear to auscultation bilaterally Cardio Jugular venous distension: no JVD Rate: regular rate Rhythm: regular rhythm Heart sounds: S1 normal heart sound present and S2 normal heart sound present GI Palpation (GI): Soft to palpation Rectal Exam - Female: No tenderness General: Yes no CVA tenderness Back/Spine/Pelvis Back: no CVA tenderness Skin Rashes: no rashes Extrem General: Yes normal to inspection, No edema and Yes pedal edema (chronic, pt reports better today than 2 weeks ago ) Office Meds epoetin disha-epbx 20,000 unit/mL injection solution Performing Provider: Anuradha Villatoro DNP, FNP-BC Performing Location: [facility] [place] [facility] Administered by: Anuradha Villatoro DNP, FNP-BC on 09/10/24 09:18 Dose Route Admin Location Dispensed Lot Number Expiration Date [facility] Transcriptionist 20,000 unit subcut 1 mL [id number] 03/19/26 2793-4297-37 [facility] Results Reviewed Nephrology Results: Hgb 8.8 g/dl (12.0-16.0) L 04/08/24 WBC 6.6 X10*3/uL (4.8-10.8) 04/08/24 Plt Count 301 X10*3/uL (160-400) 04/08/24 Sodium 142 mmol/L (135-145) 04/08/24 Potassium 3.8 mmol/L (3.3-5.1) 04/08/24 Chloride 105 mmol/L (96-108) 04/08/24 Carbon Dioxide 25 mmol/L (22-29) 04/08/24 BUN 35 mg/dL (9-16) H 04/08/24 Creatinine 2.13 mg/dL (0.5-1.4) H 04/08/24 Calcium 9.6 mg/dL (8.4-10.2) 04/08/24 Phosphorus 3.5 mg/dL (2.7-4.5) 04/08/24 PTH Intact 155.1 pg/mL (8.7-77.1) H 04/08/24 Urine Creatinine 58.91 mg/dL 04/08/24 Assessment & Plan Assessment & Plan (1) Chronic kidney disease: Code(s): N18.9 - Chronic kidney disease, unspecified Category: Medical Qualifiers: Chronic kidney disease stage: stage 4 (severe) Qualified Code(s): N18.4 - Chronic kidney disease, stage 4 (severe) (2) Anemia: Code(s): D64.9 - Anemia, unspecified Category: Medical Qualifiers: Anemia type: due to chronic kidney disease Chronic kidney disease stage: stage 4 (severe) Qualified Code(s): N18.4 - Chronic kidney disease, stage 4 (severe); D63.1 - Anemia in chronic kidney disease (3) Diabetes mellitus with chronic kidney disease: Code(s): E11.22 - Type 2 diabetes mellitus with diabetic chronic kidney disease Category: Medical Qualifiers: Diabetes mellitus type: type 2 Diabetes mellitus terminal clerk insulin use: with terminal clerk use Chronic kidney disease stage: stage 4 (severe) Qualified Code(s): E11.22 - Type 2 diabetes mellitus with diabetic chronic kidney disease; N18.4 - Chronic kidney disease, stage 4 (severe); Z79.4 - petroleum terminal plant operator (current) use of insulin Plan 73-year-old woman with a history of longstanding diabetes mellitus and coronary disease with stage IV CKD. CKD is most likely due to underlying diabetic kidney disease. Nondiabetic causes seem unlikely based on the clinical picture. Creatinine is marginally better at 2.15 (previously 2.29). Goal at this point is to slow the progression of renal disease. Maintain blood pressure less than 130/80 - she did not take her blood pressure medicine this morning Maintain A1c less than 7%. She is on adequate dose of diuretics at this time. She should stay on low-sodium diet which she is working on She will benefit from SGLT2 inhibitors. Hypertension. suboptimal today- she missed her morning dose of medication this a.m.- she will be sure to take next time Keep hydralazine 75 mg 3 times a day., in addition to carvedilol 12.5mg BID, furosemide 40mg PO BID, metolazone 2.5mg daily and nifedipine 60mg PO daily follow up in 2 weeks for re-check Anemia: due to underlying erythropoietin deficiency. Iron stores are adequate. Administered Retacrit 07522 U administered subcutaneously today into right arm secondary hyperparathyroidism Mild elevation PTH. She will follow this and start her on vitamin D3 analog as needed. All questions were answered she will return to office in 2-3 weeks Orders: Orders Complete Blood Count Auto Diff 2 Weeks D64.9 - Anemia, unspecified, E11.22 - Type 2 diabetes mellitus with diabetic chronic kidney disease, N18.9 - Chronic kidney disease, unspecified AMB Epoetin Injection Practice Supplied Today D64.9 - Anemia, unspecified, N18.9 - Chronic kidney disease, unspecified Basic Metabolic Panel 2 Weeks D64.9 - Anemia, unspecified, E11.22 - Type 2 diabetes mellitus with diabetic chronic kidney disease, N18.30 - Chronic kidney disease, stage 3 unspecified, N18.9 - Chronic kidney disease, unspecified Coding Level of Care Code Est Pt Level 4 (32613) Diagnoses Stage 4 chronic kidney disease N18.4 Chronic kidney disease stage: stage 4 (severe) Anemia due to stage 4 chronic kidney disease N18.4; D63.1 Anemia type: due to chronic kidney disease Chronic kidney disease stage: stage 4 (severe) Type 2 diabetes mellitus with stage 4 chronic kidney disease, with long-term current use of insulin E11.22; N18.4; Z79.4 Diabetes mellitus type: type 2 Diabetes mellitus terminal clerk insulin use: with longterm use Chronic kidney disease stage: stage 4 (severe)
[2024-09-10 08:45] VITALS: BP 162/64; PULSE 63; O2SAT 97
== END 2024-09-10 09:08 | disposition home or self-care (01) ==
PROVIDERS: PCP Internal Medicine; Visit Provider Internal Medicine Hypertension Specialist
DX: E11.22 Type 2 diabetes mellitus with diabetic chronic kidney disease (principal); N18.4 Chronic kidney disease, stage 4 (severe); Z79.4 Long term (current) use of insulin; D63.1 Anemia in chronic kidney disease
CPT/HCPCS: 99214

== ENCOUNTER → 2024-09-10 08:32 | Outpatient (BNVA) | payer OTHER, SELFPAY | PROVIDERS: PCP Internal Medicine; Visit Provider Internal Medicine Hypertension Specialist | DX: E11.22 Type 2 diabetes mellitus with diabetic chronic kidney disease (principal); I12.9 Hypertensive chronic kidney disease with stage 1 through stage 4 chronic kidney disease, or unspecified chronic kidney disease; N18.4 Chronic kidney disease, stage 4 (severe); D63.1 Anemia in chronic kidney disease; Z79.4 Long term (current) use of insulin; Z79.899 Other long term (current) drug therapy | CPT/HCPCS: 96372; 99212; Q5106 ==

== ENCOUNTER 2024-10-15 12:10 | Outpatient (AMB) | payer OTHER, SELFPAY ==
[2024-10-15 12:11] VITALS: BP 182/62; PULSE 72; O2SAT 97
--- NOTE | 2024-10-15 12:11 | HO.NEPHOV_ITS ---
Vital Signs 10/15/24 12:11 Height 5 ft 6 in BP 182/62 H Blood Pressure Location Lt brachial Position Sitting Pulse 72 Pulse Source Pulse Oximeter Pulse Oximetry (%) 97 Oxygen Delivery Method Room Air Intake Visit Reasons: 2wk follow up/ LVM Cashier Self Service Gasoline Required: No Accompanied by: Spouse Allergies No Known Allergies Allergy (Verified 10/15/24 12:13) Medication List - Last Reconciled 10/15/24 by Martín De Luna MD albuterol sulfate 90 mcg/actuation (ProAir HFA) 2 puffs inhalation Q6H PRN albuterol sulfate 90 mcg/actuation (ProAir RespiClick) 1 inh inhalation Q4-6H PRN aspirin 81 mg PO DAILY atorvastatin 80 mg PO DAILY carvedilol 12.5 mg PO BID cholecalciferol (vitamin D3) 50 mcg PO DAILY ferrous sulfate (FeroSul) 325 mg PO DAILY furosemide 40 mg PO BID hydralazine 75 mg (1.5 x 50 mg) PO TID insulin glargine (Lantus Solostar U-100 Insulin) 62 units subcut DAILY insulin lispro (Humalog KwikPen (U-100) Insulin) subcut metolazone 2.5 mg PO DAILY PRN nifedipine ER 60 mg PO DAILY pantoprazole 40 mg PO DAILY potassium chloride ER 10 mEq PO DAILY HPI Comments Details: 73-year-old pleasant woman with a history of diabetes mellitus for more than 35 years who was at chronic kidney disease. She is history of congestive heart failure and was on Entresto Lasix and furosemide. Back in November of 2023 creatinine was 2.6 with EGFR of 19 mL/minute. She is currently in nifedipine 60mg daily, hydralazine 75mg TID, carvedilol 12.5mg BID and furosemide 40mg PO BID She continues to have back pain. She has chronic shortness of breath (reports since prior to heart surgery last year which she states did not really help her breathing much. States at rest is ok, with exertion continues to have some dyspnea chronically). No nausea, vomiting. She has leg edema. Wears compression stockings. No weight loss. All other systems were reviewed History of congestive heart failure with preserved ejection fraction. 09/10/24 reports shortness of breath for a while now reports a year ago had open heart surgery, reports before then had it but surgery didn't make it better and has continued blood pressure medications- reports has not taken yet this a.m. Reports SBP at home is usually in 130s. 10/15/2024. Milla was hospitalized about a week ago. She had acute kidney injury superi mposed on CKD with fungemia. Serum creatinine peaked more than 4. Diuretics were held. Renal function gradually improved. She is currently not on diuretics creatinine is around 3. She has significant edema. No shortness of breath at present. Accompanied by her family member. She had recently undergone laparoscopic cholecystectomy for symptomatic cholelithiasis. During this hospitalization faustina was negative. He has been catheter was inserted 1121. She is currently on micafungin and Zosyn [facility] Medical History (Updated 10/15/24 @ 12:13 by SAMUEL Arias) Chronic kidney disease Degenerative joint disease (DJD) of hip Cataract Bunion Fatty liver DJD (degenerative joint disease), lumbar DJD (degenerative joint disease), cervical Diabetes mellitus type 2 with neurological manifestations Vitamin D deficiency Urinary incontinence Allergic rhinitis GERD (gastroesophageal reflux disease) Depression Diabetic retinopathy Hypertension Hyperlipidemia Diabetic nephropathy Surgical History (Updated 10/15/24 @ 12:13 by SAMUEL Arias) History of cholecystectomy (~09/2024) History of open heart surgery (~02/2023) History of adjustable gastric banding Social History Patient Tobacco Use Status: Never used Tobacco Physical Exam Vital Signs: Last Vital Signs Pulse 72 10/15/24 12:11 BP 182/62 H 10/15/24 12:11 Pulse Ox 97 10/15/24 12:11 Oxygen Delivery Method Room Air 10/15/24 12:11 Office Meds epoetin disha-epbx 20,000 unit/mL injection solution Performing Provider: Martín De Luna MD Performing Location: [facility] [place] [facility] Administered by: Martín De Luna MD on 10/15/24 13:29 Dose Route Admin Location Dispensed Lot Number Expiration Date NDC Mailroom Coordinator 20,000 unit subcut left arm sq 1 mL [id number] 04/18/26 6956-4103-74 [email or web address] [place] [employer] Results Reviewed Nephrology Results: No Data to Display Assessment & Plan Assessment & Plan (1) Chronic kidney disease: Code(s): N18.9 - Chronic kidney disease, unspecified Category: Medical Qualifiers: Chronic kidney disease stage: stage 4 (severe) Qualified Code(s): N18.4 - Chronic kidney disease, stage 4 (severe) (2) Anemia: Code(s): D64.9 - Anemia, unspecified Category: Medical Qualifiers: Anemia type: due to chronic kidney disease Chronic kidney disease stage: stage 4 (severe) Qualified Code(s): N18.4 - Chronic kidney disease, stage 4 (severe); D63.1 - Anemia in chronic kidney disease (3) Diabetes mellitus with chronic kidney disease: Code(s): E11.22 - Type 2 diabetes mellitus with diabetic chronic kidney disease Category: Medical Qualifiers: Chronic kidney disease stage: stage 4 (severe) Diabetes mellitus watermelon inspector insulin use: with watermelon inspector use Diabetes mellitus type: type 2 Qualified Code(s): E11.22 - Type 2 diabetes mellitus with diabetic chronic kidney disease; N18.4 - Chronic kidney disease, stage 4 (severe); Z79.4 - watermelon inspector (current) use of insulin Plan 73-year-old woman with a history of longstanding diabetes mellitus and coronary disease with stage IV CKD. CKD is most likely due to underlying diabetic kidney disease. Nondiabetic causes seem unlikely based on the clinical picture. Creatinine is marginally better at 2.15 (previously 2.29). Goal at this point is to slow the progression of renal disease. Maintain blood pressure less than 130/80 - she did not take her blood pressure medicine this morning Maintain A1c less than 7%. She is on adequate dose of diuretics at this time. She should stay on low-sodium diet which she is working on She will benefit from SGLT2 inhibitors. Hypertension. suboptimal today- she missed her morning dose of medication this a.m.- she will be sure to take next time Increase hydralazine 75 mg 3 times a day., resume diuretic follow up in 2 weeks for re-check Anemia: due to underlying erythropoietin deficiency. Iron stores are adequate. Administered Retacrit 55918 U administered subcutaneously today into right arm secondary hyperparathyroidism Mild elevation PTH. She will follow this and start her on vitamin D3 analog as needed. All questions were answered she will return to office in 2-3 weeks Orders: Orders AMB Epoetin Injection Practice Supplied Today N40.1 - Benign prostatic hyperplasia with lower urinary tract symptoms Complete Blood Count no Diff 2 Weeks E11.22 - Type 2 diabetes mellitus with diabetic chronic kidney disease, N18.4 - Chronic kidney disease, stage 4 (severe), Z79.4 - watermelon inspector (current) use of insulin Basic Metabolic Panel 2 Weeks E11.22 - Type 2 diabetes mellitus with diabetic chronic kidney disease, N18.4 - Chronic kidney disease, stage 4 (severe), Z79.4 - watermelon inspector (current) use of insulin Medications: New epoetin disha-epbx 20,000 units subcut ONCE 1 mL 0RF anemia N40.1 - Benign prostatic hyperplasia with lower urinary tract symptoms Coding Level of Care Code Est Pt Level 5 (06059) Diagnoses Stage 4 chronic kidney disease N18.4 Chronic kidney disease stage: stage 4 (severe) Anemia due to stage 4 chronic kidney disease N18.4; D63.1 Anemia type: due to chronic kidney disease Chronic kidney disease stage: stage 4 (severe) Type 2 diabetes mellitus with stage 4 chronic kidney disease, with long-term current use of insulin E11.; N18.4; Z79.4 Chronic kidney disease stage: stage 4 (severe) Diabetes mellitus watermelon inspector insulin use: with detention use Diabetes mellitus type: type 2
== END 2024-10-15 12:25 | disposition home or self-care (01) ==
PROVIDERS: PCP Internal Medicine; Visit Provider Internal Medicine Hypertension Specialist
DX: E11.22 Type 2 diabetes mellitus with diabetic chronic kidney disease (principal); N18.4 Chronic kidney disease, stage 4 (severe); D63.1 Anemia in chronic kidney disease; Z79.4 Long term (current) use of insulin; N40.1 Benign prostatic hyperplasia with lower urinary tract symptoms
CPT/HCPCS: 99214

== ENCOUNTER → 2024-10-15 12:10 | Outpatient (BNVA) | payer OTHER, SELFPAY | PROVIDERS: PCP Internal Medicine; Visit Provider Internal Medicine Hypertension Specialist | DX: E11.22 Type 2 diabetes mellitus with diabetic chronic kidney disease (principal); N18.4 Chronic kidney disease, stage 4 (severe); D63.1 Anemia in chronic kidney disease; Z79.4 Long term (current) use of insulin | CPT/HCPCS: 96372; 99212; Q5106 ==

== ENCOUNTER 2024-12-03 11:26 | Outpatient (AMB) | payer OTHER, SELFPAY ==
[2024-12-03 11:35] VITALS: BP 110/50; PULSE 58; O2SAT 99
--- NOTE | 2024-12-03 11:35 | HO.NEPHOV ---
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 Accompanied by: Spouse Allergies No Known Allergies Allergy (Verified 12/03/24 11:38) Medication List - Last Reconciled 12/03/24 by Martín De Luna MD albuterol sulfate 90 mcg/actuation (ProAir HFA) 2 puffs inhalation Q6H PRN albuterol sulfate 90 mcg/actuation (ProAir RespiClick) 1 inh inhalation Q4-6H PRN aspirin 81 mg PO DAILY atorvastatin 80 mg PO DAILY carvedilol 12.5 mg PO BID cholecalciferol (vitamin D3) 50 mcg PO DAILY ferrous sulfate (FeroSul) 325 mg PO DAILY furosemide 40 mg PO BID hydralazine 50 mg PO TID insulin glargine (Lantus Solostar U-100 Insulin) 62 units subcut DAILY insulin lispro (Humalog KwikPen (U-100) Insulin) subcut metolazone 2.5 mg PO DAILY PRN nifedipine ER 60 mg PO DAILY pantoprazole 40 mg PO DAILY potassium chloride ER 10 mEq PO DAILY HPI Comments Details: 73-year-old pleasant woman with a history of diabetes mellitus for more than 35 years who was at chronic kidney disease. She is history of congestive heart failure and was on Entresto Lasix and furosemide. Back in November of 2023 creatinine was 2.6 with EGFR of 19 mL/minute. She is currently in nifedipine 60mg daily, hydralazine 75mg TID, carvedilol 12.5mg BID and furosemide 40mg PO BID She continues to have back pain. She has chronic shortness of breath (reports since prior to heart surgery last year which she states did not really help her breathing much. States at rest is ok, with exertion continues to have some dyspnea chronically). No nausea, vomiting. She has leg edema. Wears compression stockings. No weight loss. All other systems were reviewed History of congestive heart failure with preserved ejection fraction. 09/10/24 reports shortness of breath for a while now reports a year ago had open heart surgery, reports before then had it but surgery didn't make it better and has continued blood pressure medications- reports has not taken yet this a.m. Reports SBP at home is usually in 130s. 10/15/2024. Milla was hospitalized about a week ago. She had acute kidney injury superimposed on CKD with fungemia. Serum creatinine peaked more than 4. Diuretics were held. Renal function gradually improved. She is currently not on diuretics creatinine is around 3. She has significant edema. No shortness of breath at present. Accompanied by her family member. She had recently undergone laparoscopic cholecystectomy for symptomatic cholelithiasis. During this hospitalization faustina was negative. He has been catheter was inserted 1121. She is currently on micafungin and Zosyn 12/03/24 BP was low She was hospitalzied @ [facility] [place] Nov 2023 : Cr 2.20 Nov 2024 Cr 2.2 with eGFR of 22 ml/mt [facility] Medical History (Updated 10/15/24 @ 12:13 by SAMUEL Arias) Chronic kidney disease Degenerative joint disease (DJD) of hip Cataract Bunion Fatty liver DJD (degenerative joint disease), lumbar DJD (degenerative joint disease), cervical Diabetes mellitus type 2 with neurological manifestations Vitamin D deficiency Urinary incontinence Allergic rhinitis GERD (gastroesophageal reflux disease) Depression Diabetic retinopathy Hypertension Hyperlipidemia Diabetic nephropathy Surgical History History of cholecystectomy (~09/2024) History of open heart surgery (~02/2023) History of adjustable gastric banding Social History Patient Tobacco Use Status: Never used Tobacco Physical Exam Vital Signs: Last Vital Signs Pulse 58 12/03/24 11:35 BP 110/50 L 12/03/24 11:35 Pulse Ox 99 12/03/24 11:35 Oxygen Delivery Method Room Air 12/03/24 11:35 Neck Neck: Yes supple Resp Auscultation: clear to auscultation bilaterally Cardio Palpation: no palpable S3 Heart sounds: no rubs GI Palpation (GI): Soft to palpation Auscultation: normal bowel sounds Neuro Motor exam (neuro): no asterixis Extrem General: Yes edema Office Meds epoetin disha-epbx 20,000 unit/mL injection solution Performing Provider: Martín De Luna MD Performing Location: [facility] [place] [facility] Administered by: Martín De Luna MD on 12/03/24 11:56 Dose Route Admin Location Dispensed Lot Number Expiration Date ND Armature Rewinder 20,000 unit subcut left arm 1 mL [id number] 04/18/26 2791-7106-95 [employer] Results Reviewed Results Reviewed: hgb 8.21 Nov 2023 : Cr 2.20 Nov 2024 Cr 2.2 Nephrology Results: No Data to Display Assessment & Plan Assessment & Plan (1) Chronic kidney disease: Code(s): N18.9 - Chronic kidney disease, unspecified Category: Medical Qualifiers: Chronic kidney disease stage: stage 4 (severe) Qualified Code(s): N18.4 - Chronic kidney disease, stage 4 (severe) (2) Anemia: Code(s): D64.9 - Anemia, unspecified Category: Medical Qualifiers: Anemia type: due to chronic kidney disease Chronic kidney disease stage: stage 4 (severe) Qualified Code(s): N18.4 - Chronic kidney disease, stage 4 (severe); D63.1 - Anemia in chronic kidney disease (3) Diabetes mellitus with chronic kidney disease: Code(s): E11.22 - Type 2 diabetes mellitus with diabetic chronic kidney disease Category: Medical Qualifiers: Diabetes mellitus type: type 2 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 CKD is most likely due to underlying diabetic kidney disease. Nondiabetic causes seem unlikely based on the clinical picture. Creatinine is marginally better at 2.15 (previously 2.29). Goal at this point is to slow the progression of renal disease. Maintain blood pressure less than 130/80 - she did not take her blood pressure medicine this morning Maintain A1c less than 7%. She is on adequate dose of diuretics at this time. She should stay on low-sodium diet which she is working on She will benefit from SGLT2 inhibitors. Hypertension. BP is better today Anemia: due to underlying erythropoietin deficiency. Iron stores are adequate. Administered Retacrit 93831 U administered subcutaneously today into left arm secondary hyperparathyroidism Mild elevation PTH. She will follow this and start her on vitamin D3 analog as needed. All questions were answered she will return to office in 2-3 weeks Orders: Orders AMB Epoetin Injection Practice Supplied Today N40.1 - Benign prostatic hyperplasia with lower urinary tract symptoms Medications: New epoetin disha-epbx 20,000 units subcut ONCE 1 mL 0RF anemia N40.1 - Benign prostatic hyperplasia with lower urinary tract symptoms Coding Level of Care Code Est Pt Level 4 (18710) Complex EM visit Add On G2211 Diagnoses Stage 4 chronic kidney disease N18.4 Chronic kidney disease stage: stage 4 (severe) Anemia due to stage 4 chronic kidney disease N18.4; D63.1 Anemia type: due to chronic kidney disease Chronic kidney disease stage: stage 4 (severe) Type 2 diabetes mellitus with stage 4 chronic kidney disease, with long-term current use of insulin E11.22; N18.4; Z79.4 Diabetes mellitus type: type 2 Diabetes mellitus terminal superintendent insulin use: with [facility] use Chronic kidney disease stage: stage 4 (severe)
--- OUTSIDE RECORDS SUMMARY | 2024-12-03 13:33 | XMS_ITS | Continuity of Care Document ---
Author Organization [facility] Address [address] [place] [address]- Care Team Providers Care Drain Tiler Name Role Phone Rosalina AVILES, Diana Worley Primary Care Physician Encounter [facility] Date(s): 10/07/24 - 11/06/24 [facility] [address] [place] [id number] Encounter Type: Triage Allergies, Adverse Reactions, Alerts No Known Allergies Immunizations Given and Recorded Vaccine Date Status Refusal Reason influenza virus vaccine, inactivated 06/23/22 Anthony rded influenza virus vaccine, inactivated 07/15/21 Anthony rded influenza virus vaccine, inactivated 08/18/20 Anthony rded influenza virus vaccine, inactivated 08/05/20 Anthony rded influenza virus vaccine, inactivated 09/28/18 Give n influenza virus vaccine, inactivated 09/24/15 Anthony rded SARS-CoV-2 mRNA ([id number]) vax 06/23/22 Recorded SARS-CoV-2 (COVID-19) mRNA BNT-162b2 vac 09/06/21 Recorded SARS-CoV-2 (COVID-19) mRNA BNT-162b2 vac 02/18/21 Recorded SARS-CoV-2 (COVID-19) mRNA BNT-162b2 vac 01/28/21 Recorded zoster vaccine, inactivated 11/28/19 Recorded Zoster Vaccine Live 11/05/12 Recorded Medications acetaminophen 325 mg oral tablet 975 mg, By Mouth, Every 6 hours, Refills 0, Maintenance, 03/08/23 3:15:00 PM EDT, Partial fill upon patient request if the prescription is for a schedule II opioid drug. Start Date: 03/08/23 Status: Ordered Repeat number: 1 Albuterol (Eqv-ProAir HFA) 90 mcg/inh inhalation aerosol INHALE 2 PUFFS INTO THE LUNGS EVERY 6 HOURS NEEDED FOR COUGH OR WHEEZING OR SHORTNESS OF BREATH Start Date: 12/20/22 Status: Ordered Repeat number: 1 atorvastatin 80 mg oral tablet 1 tablet = 80 mg, By Mouth, Daily at bedtime, 0 Refills, Maintenance, 03/08/23 3:15:00 PM EDT, Tablet, Partial fill upon patient request if the prescription is for a schedule II opioid drug. Start Date: 03/08/23 Status: Ordered Repeat number: 1 basic metabolic panel basic metabolic panel, See Instructions, # 1 each, Refills 0, Tot. Refills 0, Maintenance, BMP to be done once between 11/26/23-11/30/23. ICD 10: N17 Please send results to Dr. Diana Romano, 11/24/23 3:24:00 PM EST, Supply Start Date: 11/24/23 Status: Ordered Quantity: 1.0 Unit: each Repeat number: 1 Coreg 25 mg oral tablet 25 mg, By Mouth, 2 times a day, # 60 tablet, Refills 0, Tot. Refills 0, Maintenance, 10/27/24 3:02:00 PM EST, [id number], Partial fill upon patient request if the prescription is for a schedule II opioid drug., 168, cm, 10/27/24 11:12:00 EST, Height, 101, kg, 10/23/24 3:54:00 EST, Dry Weight Start Date: 10/27/24 Stop Date: 11/26/24 Status: Ordered Quantity: 60.0 Unit: tablet Repeat number: 1 Docusate/Senna Tablet 2 tablet, By Mouth, Daily, 0 Refills, Maintenance, 03/08/23 3:15:00 PM EDT, Tablet, Partial fill upon patient request if the prescription is for a schedule II opioid drug. Start Date: 03/08/23 Status: Ordered Repeat number: 1 ferrous sulfate 325 mg oral enteric coated tablet 325 mg, By Mouth, Every Sunday, Sunday and Sunday, may take with food to minimize abdominal discomfort, # 15 tablet, Refills 0, Tot. Refills 0, Maintenance, 1/6/24 3:13:00 PM EST, Route to Pharmacy Electronically, [facility], Partial fill upon patient request if the prescription isfor a schedule II opioid drug., 165, cm, 11/24/23 13:39:00 EST, Height, 103.5, kg, 11/16/23 14:52:00 EST, Dry Weight Start Date: 11/24/23 Status: Ordered Quantity: 15.0 Unit: tablet Repeat number: 1 hydrALAZINE 50 mg oral tablet 1 tablet = 50 mg, By Mouth, 3 times a day, # 90 tablet, 0 Refills, Maintenance, 11/24/23 3:15:00 PM EST, Tablet, [facility], Partial fill upon patient request if the prescription is for aschedule II opioid drug., 165, cm, 11/24/23 13:39:00 EST, Height, 103.5, kg, 11/16/23 14:52:00 EST,Dry Weight Start Date: 11/24/23 Status: Ordered Quantity: 90.0 Unit: tablet Repeat number: 1 insulin lispro 100 u/ml subcutaneous injection 2-10 units, Subcutaneous Injection, 3 times a day before meals, << Sliding Scale Comments >> 120 - 169 2 units Call if less than 100 170 - 219 4 units 220 - 269 6 units 270 - 319 8 units 320 - 369 10 units Call if greater than 400 << Sliding Scale Comments >>, 0 Refills, Maintenance, 03/08/23 3:14:00 PM EDT, Injection, Partial fill upon patient request if the prescription is for a schedule II opioid drug. Start Date: 03/08/23 Status: Ordered Repeat number: 1 Lantus Inj = 18 units, Subcutaneous Injection, Every 24 hours, 0 Refills, Maintenance, 03/08/23 3:14:00 PM EDT,Injection, Partial fill upon patient request if the prescription is for a schedule II opioid drug. Start Date: 03/08/23 Status: Ordered Repeat number: 1 Lasix 40 mg oral tablet 40 mg, 1, tablet, By Mouth, 2 times a day, # 30 tablet, Refills 0, Tot. Refills 0, Maintenance, 10/27/24 2:51:00 PM EST, Do Not Route, Partial fill upon patient request if the prescription is for a schedule II opioid drug. Start Date: 10/27/24 Status: Ordered Quantity: 30.0 Unit: tablet Repeat number: 1 lidocaine 5% topical film Topically, Daily, 0 Refills, Maintenance, 03/08/23 3:16:00 PM EDT, Patch, Partial fill upon patient request if the prescription is for a schedule II opioid drug. Start Date: 03/08/23 Status: Ordered Repeat number: 1 methenamine hippurate 1 gm oral tablet 1 tablet = 1 Gm, By Mouth, 2 times a day, 0 Refills, Maintenance, 01/12/16 1:14:06 PM EST Start Date: 01/12/16 Status: Ordered Repeat number: 1 metolazone 2.5 mg oral tablet TAKE 1 TABLET BY MOUTH DAILY NEEDED FOR SWELLING Start Date: 10/21/24 Status: Ordered Repeat number: 1 Multivitamin By Mouth, Daily, 0 Refills, Maintenance, 09/15/15 9:44:56 AM EDT Start Date: 09/15/15 Status: Ordered Repeat number: 1 NIFEdipine 60 mg oral tablet, extended release 60 mg, By Mouth, Daily, # 30 tablet, Refills 0, Tot. Refills 0, Maintenance, 11/24/23 3:13:00 PM EST,Route to Pharmacy Electronically, [facility], Partial fill upon patient request if the prescription is for a schedule II opioid drug., 165, cm, 11/24/23 13:39:00 EST, Height, 103.5, kg,11/16/23 14:52:00 EST, Dry Weight Start Date: 11/24/23 Status: Ordered Quantity: 30.0 Unit: tablet Repeat number: 1 pantoprazole 40 mg oral delayed release tablet 1 tablet = 40 mg, By Mouth, Daily, # 30 tablet, 0 Refills, Maintenance, 12/20/22 2:40:00 AM EST, EC Tablet Start Date: 12/20/22 Status: Ordered Quantity: 30.0 Unit: tablet Repeat number: 1 sodium bicarbonate 650 mg oral tablet 0 Refills, Maintenance, 10/21/24 12:14:00 AM EST, Partial fill upon patient request if the prescription is for a schedule II opioid drug. Start Date: 10/21/24 Status: Ordered Repeat number: 1 Vitamin D3 2000 intl units oral capsule TAKE 1 CAPSULE BY MOUTH DAILY Start Date: 10/21/24 Status: Ordered Repeat number: 1 Problem List Condition Confirmation Course Effective Dates Status Health Status Informant Atypical chest pain Confirmed Active Candidemia Confirmed Active Cholecystitis Confirmed Active CKD stage 4 Confirmed Active GERD (gastroesophageal reflux disease) Confirmed Active History of cholecystectomy Confirmed Active Hypercholesterolemia Confirmed Active HTN (hypertension) Confirmed Active Insulin dependent type 2 diabetes mellitus Confirmed Active Neuropathy Confirmed Active Retinopathy Confirmed Active Severe obesity (BMI 35.0-39.9) with comorbidity Confirmed Active Social History Social History Type Response Smoking Status Never smoker entered on: 09/14/15 Sex Sex Representation Female (finding) Patient Care team information Care Team Personnel Name: Anuradha Flores RN Position: [facility] RN Member Role: Primary Care Nurse Name: Diana Romano MD Position: Reference Physician Member Role: PCP Address: [address] [place] [address], [address] [place], [place] [address] Telecom: Name: Nadya Harrison RN Position: [facility] RN Member Role: Primary Care Nurse Name: Carlee Concepcion RN Position: S RN Member Role: Primary Care Nurse Name: Renate Bradley RN Position: S RN Member Role: Primary Care Nurse Name: Tita Scanlon RN Position: [facility] RN Member Role: Primary Care Nurse Name: Lizbeth Maier RN Position: S RN Member Role: Primary Care Nurse Name: Heavenly Martino RN Position: [facility] RN Member Role: Primary Care Nurse Name: Slick Martino RN Position: S RN Member Role: Primary Care Nurse Name: Elodia Garcia RN Position: [facility] RN Member Role: Primary Care Nurse Name: Kelly Barba RN Position: S RN Member Role: Primary Care Nurse Name: Renee Graham RN Position: S RN Member Role: Primary Care Nurse Name: Anuradha Cai RN Position: [facility] RN Member Role: Primary Care Nurse Name: Matty Joel MD Position: S Outreach Member Role: Lifetime Consulting Physician Address: [address] [facility] [facility], [place] [address]- Telecom: Name: Ash Soto MD Position: [facility] Renal MD Member Role: Lifetime Consulting Physician Address: [address] [facility] [facility] [address] Telecom: Name: Slick Armstrong RN Position: S RN Member Role: Primary Care Nurse Name: Araceli Pinto RN Position: S RN Member Role: Primary Care Nurse Name: Karen Resendez RN Position: S RN Member Role: Primary Care Nurse Name: Alber Hernández MD Position: [facility] Renal MD Member Role: Lifetime Consulting Physician Address: [address] [facility] [address] Telecom: Name: Kavitha Choudhary RN Position: S RN Member Role: Primary Care Nurse Name: Sudha Kee RN Position: S RN Member Role: Primary Care Nurse Name: Tita Sims RN Position: S RN Member Role: Primary Care Nurse Name: Krystyna Lin RN Position: S RN Member Role: Primary Care Nurse Care Team Related Persons Name: LEO COCHRAN Name: AMILCAR JOHNSON Insurance Providers Guarantor name: [facility] Information #: 1 Payer: NA Member Number: NA Policy Number: NA Group Number: [id number]
--- OUTSIDE RECORDS SUMMARY | 2024-12-03 13:33 | XMS_ITS | Data Portability ---
Author Organization [employer] [facility] [facility] Address [address] [place] [id number] Care Team Providers Care Manager Park Name Role Phone [facility] Primary Care Provider [facility] OTHER Assessment Encounter Date Assessment Date Assessment LastModified by Organization Details LastModified Time 10/02/2024 10/02/2024 As noted, we ochoa haynes called to see this patient regarding concerns of shob and weakness. Evaluation in the field was performed by my rail layer colleague, as noted above, I provided real-time direction and supervision for this visit. The evaluation revealed 73y F post-op day 2 from cholecystectomy with shortness of breath, malaise and decreased SpO2. Refer to ER for eval Impression: hypoxia, post op Plan: refer to ER Primary care, consider ER f/u atilhou Not available 10/02/2024 19:22:07 Plan of Treatment Reminders Order Date Submit Date Provider Last Modified By Organization Details Last Modified Time Details Appointments None record ed. Lab None record ed. Referral None record ed. Procedures None record ed. Surgeries None record ed. Imaging None record ed. Medication Orders None record ed. Patient TargetsNo targets recorded. Patient InstructionsNo instructions recorded. Reason for Referral None Reported. Medical Equipment None Reported. Allergies No known drug allergies Medications Name Sig Start Date Stop Date Status Note LastModified by Organization Details LastModified Time losartan 50 mg tablet TAKE 1 TABLET BY MOUTH DAILY active Not Available Not Available Not Available Refresh Tears 0.5 % eye drops INSTILL 1 DROP INTO BOTH EYES FOUR TIMES DAILY active Not Available Not Available No t Available furosemide 40 mg tablet TAKE 2 TABLETS BY MOUTH DAILY active Not Available Not Available Not Available metolazone 2.5 mg tablet TAKE 1 TABLET BY MOUTH DAILY NEEDED FOR SWELLING active Not Available Not Available No t Available atorvastatin 80 mg tablet TAKE 1 TABLET BY MOUTH DAILY active Not Available Not Available Not Available acetaminophe n 325 mg tablet TAKE 2 TABLETS BY MOUTH EVERY 6 HOURS NEEDED FOR MILD PAIN. (LIMIT 4000MG OF TYLENOL/ALE TAMINOPHEN PER DAY) active Not Available Not Available No t Available carvedilol 6.25 mg tablet TAKE 1 TABLET BY MOUTH TWICE DAILY WITH MEALS active Not Available Not Available No t Available carvedilol 12.5 mg tablet TAKE 1 TABLET BY MOUTH TWICE DAILY WITH MEALS active Not Available Not Available No t Available clindamycin HCl 300 mg capsule TAKE ONE CAPSULE BY MOUTH EVERY 8 HOURS active Not Available Not Available No t Available hydralazine 25 mg tablet TAKE 1 TABLET BY MOUTH TWICE DAILY active Not Available Not Available No t Available potassium chloride ER 10 mEq tablet,exten ded release TAKE 1 TABLET BY MOUTH DAILY active Not Available Not Available Not Available clopidogrel 75 mg tablet TAKE 1 TABLET BY MOUTH DAILY active Not Available Not Available Not Available amlodipine 5 mg tablet TAKE 1 TABLET BY MOUTH TWICE DAILY active Not Available Not Available No t Available methenamine hippurate 1 gram tablet TAKE 1 TABLET BY MOUTH TWICE DAILY active Not Available Not Available No t Available nifedipine ER 60 mg tablet,exten ded release 24 hr TAKE 1 TABLET BY MOUTH EVERY DAY active Not Available Not Available No t Available cephalexin 500 mg capsule TAKE 1 CAPSULE BY MOUTH THREE TIMES DAILY FOR 10 DAYS active Not Available Not Available Not Available pantoprazole 40 mg tablet,delay ed release TAKE 1 TABLET BY MOUTH DAILY active Not Available Not Available Not Available losartan 25 mg tablet TAKE 1 TABLET BY MOUTH DAILY active Not Available Not Available Not Available oxycodone 5 mg capsule TAKE 1 TABLET BY MOUTH EVERY 4 HOURS NEEDED FOR SEVERE PAIN. active Not Available Not Available No t Available docusate sodium 100 mg capsule TAKE 1 CAPSULE BY MOUTH TWICE DAILY active Not Available Not Available No t Available bisacodyl 5 mg tablet,delay ed release TAKE 2 TABLETS BY MOUTH RIGHT BEFORE BEGINNING BOWEL PREP. FOLLOW INSTRUCTION S GIVEN BY OFFICE FOR TIMING active Not Available Not Available No t Available hydralazine 50 mg tablet TAKE 1 TABLET BY MOUTH THREE TIMES DAILY active Not Available Not Available Not Available furosemide 20 mg tablet TAKE 2 TABLETS BY MOUTH TWICE DAILY active Not Available Not Available No t Available SSD 1 % topical cream APPLY TOPICALLY TO NAIL BEDTIME DAILY active Not Available Not Available No t Available ferrous sulfate 325 mg (65 mg iron) tablet,delay ed release TAKE 1 TABLET BY MOUTH EVERY SUNDAY, SUNDAY, AND SUNDAY. MAY TAKE WITH FOOD TO MINIMIZE ABDOMINAL DISCOMFORT active Not Available Not Available N ot Available nifedipine ER 60 mg tablet,exten ded release TAKE 1 TABLET BY MOUTH DAILY active Not Available Not Available Not Available FeroSul 325 mg (65 mg iron) tablet TAKE 1 TABLET BY MOUTH EVERY DAY active Not Available Not Available No t Available Lantus Solostar U-100 Insulin 100 unit/mL (3 mL) subcutaneous pen INJECT 18 UNITS SUBCUTANEOU SLY EVERY NIGHT AT BEDTIME active Not Available Not Available No t Available Humalog KwikPen (U-100) Insulin 100 unit/mL subcutaneous INJECT UP TO 10 UNITS UNDER THE SKIN 2-3 TIMES A DAY. active Not Available Not Available No t Available diclofenac 1 % topical gel APPLY 4 GRAMS TOPICALLY TO THE AFFECTED AREA TWICE DAILY active Not Available Not Available No t Available cholecalcife rol (vitamin D3) 50 mcg (2,000 unit) capsule TAKE 1 CAPSULE BY MOUTH DAILY active Not Available Not Available Not Available cholecalcife rol (vitamin D3) 50 mcg (2,000 unit) tablet TAKE 1 TABLET BY MOUTH DAILY active Not Available Not Available Not Available GaviLyte-G 236 gram-22.74 gram-6.74 gram-5.86 gram oral solution TAKE 4L BY MOUTH ONCE FOR 1 DOSE. STARTING AT 6PM THE NIGHT BEFORE YOUR PROCEDURE DRINK 1 8OZ GLASSES AT YOUR OWN PACE UNTIL RECTALS RUN CLEAR. active Not Available Not Available No t Available Trulicity 1.5 mg/0.5 mL subcutaneous pen injector ADMINISTER 1.5 MG UNDER THE SKIN EVERY 7 DAYS active Not Available Not Available No t Available Trulicity 0.75 mg/0.5 mL subcutaneous pen injector active Not Available Not Available Not Available Baqsimi 3 mg/actuation nasal spray USE DIRECTRED FOR LOW BLOOD SUGAR active Not Available Not Available Not Available Vitals Date Recorded Respiratory rate Heart rate Oxygen saturation Oxygen saturation in Arterial blood by Pulse oximetry Systolic blood pressure Diastolic blood pressure Provider Name and Address Organization Details Last Updated DateTime 4 18 /min 83 /min 93 % 93 % 132 mm[Hg] 60 mm[Hg] Not Available [facility] - production 4 19:18:13 Social History None recorded. Functional Status None recorded. Mental Status None recorded. Family History Nothing Reported. Medical History No medical history recorded. Gynecological HistoryNo gynecological history recorded. Obstetrics History GPAL:G 0 P 0 0 0 0 Past Encounters Encounter ID Performer Location Encounter Start Date Encounter Closed Date Diagnosis/Indication Diagnosis SNOMED-CT Code Diagnosis ICD10 Code Diagnosis Note [id number] Brina Hurd MD [facility] - [address] [id number] 10/02/2024 19:18:11 10/02/2024 23:20:15 Postoperative visit 108826869 Z48.89 Dyspnea 056140174 R06.00 Health Concerns Section Related Observation LastModified by Organization Detai ls LastModified Time None Recorded Concern Status LastModified by Organization Details LastModified Time None Recorded Advance Directives Directive None Recorded Payers Encounter Date Sequence Insurance Name Policy Number Policy Braun Covered Member ID Braun Member ID Guarantor Name 10/02/2024 1 [facility] - DOS ON OR AFTER 2023 - DUAL ELIGIBLE - HALFWAY OPTIONS AND ONE CARE (MEDICARE REPLACEMENT/ADV ANTAGE - HMO) Milla Guzman [id number] Milla Guzman Notes Date Note Type Note Provider Name and Address Organization Details Recorded Time 10/02/2024 text/html [facility] Nurse Triage Notes (Jana Leonard): Reason For Request: PT reporting she had surgery this past sunday>notes oxygen level is low and feels weak>was advised by her VNA to call an ambulance if no improvements Chief Complaints: Breathing problems PMH: Diabetes Mellitus Type 2, Cholecystectomy Comments: gallbladder removal on Sunday. Bureau sob since d/c from hospital yesterday. 02 sat high 80s RA during visiting nurse visit today. Feeling very weak, dizzy/lightheaded. Decreased output in colonoscopy. Afebrile. Reports discomfort to incision site. Reports new productive cough. Speaking full sentences without distress. Education provided on the response time and the member was advised to monitor reported s/s and seek emergency treatment if needed. ..................... ..................... ..................... ..................... ..................... ..................... ............... Lathe Set Up Person Note From Tyler Milligan: [facility] dispatched to the address listed above for the report of a female libertarian with post op SOB. Patient was found inside with , lying semi fowlers in bed, alert and oriented x4, patent airway, breathing non labored speaking in complete sentences, skin WPD in no immediate distress. +/= Chest rise. -SOB, -CP, -NVD, -Trauma, -Fever. GCS 15. Abdomen non distended but tender in area of incision site. Lung sounds revealed fine crackles in the bases. Patient reports that she recently had her gallbladder removed at [facility] on 09/30, patient reports that the swelling, redness, and pain to the incision site has not improved over the past 2 days. Patient reports that she has been experiencing increased SOB and weakness since the surgery. Patient reports history of CHF and denies any history of asthma or COPD. Patient denies any fever or chills. Patient reports that she has been med compliant, eating and drinking normally. Patient baseline vital signs obtained as noted. [facility] [place] consulted and advised that the patient should go to the hospital to R/O a pulmonary embolism. Patient agreed to go to the hospital and [place] called 911 for patient. Patient report given to transporting ambulance without incident. ..................... ..................... ..................... ..................... ..................... ..................... ............... [facility] Consulted: Brina Hurd ..................... ..................... ..................... ..................... ..................... ..................... ............... Disposition: Fulfilled Brina Hurd MD [address] [facility], [place], [address], [facility] [address] [facility] 10/02/2024 19:57:17 OBGyn Episode No OBEpisode recorded.
--- OUTSIDE RECORDS SUMMARY | 2024-12-03 13:33 | XMS_ITS | Continuity of Care Document ---
Author Organization [facility] Address [address] [place] [address] [address] [place] [address] Phone Care Team Providers Care Segment Assembler Name Role Phone Elbert AVILES, JAMEEL, MIRZA, González Unavailable U navailable Procedures Procedure Date Office/Oupt E&M New Pt 45 Mins- CT & [place] Duplex Scan-extrem Veins; Comp- [place] & [place] Advance Directives Directive Yes / No Effective Date File Name No Information Encounters Encounter Description Practice Location Reason(s) For Visit Diagnoses Date Provider Providers Copied on Encounter [facility], [address] [place] [address] Dr [address], [id number], [place] tel:[phone] [facility] No Information 4 Elbert AVILES, JAMEEL, MIRZA Claudio. [address] [address], [place], [place], [id number] , [place]. tel:[phone] Office/Oupt E&M New Pt 45 Mins- [place] & [place] [facility], [address] [place] [address] [address], [id number], [place] tel:[phone] [facility] Chronic venous hypertension (idiopathic) with other complications of bilateral lower extremityLymphe brenda, not elsewhere classifiedType 2 diabetes mellitus without complicationsRe stless legs syndromeEssenti al (primary) hypertensionCra mp and spasmLocalized edema 4 Elbert AVILES RVT, MIRZA Claudio. [address] [facility], [address], [place], [id number] , [place]. tel:[phone] Referring Provider: Diana Hamm, [address] [place] [address] [facility], [facility] [address], [place], [address]. tel:[phone] [facility], [address] [facility] [address], [place], [id number], tel:[phone] [facility] Chronic venous hypertension (idiopathic) with other complications of bilateral lower extremity 4 Elbert AVILES RVT, MIRZA Claudio. [address] [facility], [address], [place], [id number] , [place]. tel:[phone] Referring Provider: Diana Hamm, [address] [place] [address] [facility], [facility] [address], [place], [address]. tel:[phone] Family History Family Member Type Diagnosis Age At Onset No Information Payers Payer name Insurance type Covered green party ID Krista fregoso(s) [facility] CI [id number] Social History Type Description Quantity Date Captured [...]
--- OUTSIDE RECORDS SUMMARY | 2024-12-03 13:33 | XMS_ITS | Continuity of Care Document ---
Author Organization [facility] ter Address [address] [place] [address]- Care Team Providers Care Toggler Name Role Phone Rosalina AVILES, Diana D Primary Care [id number] Date(s): 10/21/24 - 11/29/[address] [address] Attending Physician: Alvaro Avelar MD Admitting Physician: Alvaro Avelar MD Referring Physician: Alvaro Avelar MD Encounter Type: Pre-Outpt Allergies, Adverse Reactions, Alerts No Known Allergies Immunizations Given and Recorded Vaccine Date Status Refusal Reason influenza virus vaccine, inactivated 06/23/22 Anthony rded influenza virus vaccine, inactivated 07/15/21 Anthony rded influenza virus vaccine, inactivated 08/18/20 Anthony rded influenza virus vaccine, inactivated 08/05/20 Anthony rded influenza virus vaccine, inactivated 09/28/18 Give n influenza virus vaccine, inactivated 09/24/15 Anthony rded SARS-CoV-2 mRNA ([id number]) vax 06/23/22 Recorded SARS-CoV-2 (COVID-19) mRNA BNT-162b2 vac 09/06/21 Recorded SARS-CoV-2 (COVID-19) mRNA BNT-162b2 vac 02/18/21 Recorded SARS-CoV-2 (COVID-19) mRNA BNT-162b2 vac 01/28/21 Recorded zoster vaccine, inactivated 11/28/19 Recorded Zoster Vaccine Live 11/05/12 Recorded Medications acetaminophen 325 mg oral tablet 975 mg, By Mouth, Every 6 hours, Refills 0, Maintenance, 4/20/23 3:15:00 PM EDT, Partial fill upon patient [...] 3:02:00 PM EST, Route to Pharmacy Electronically, [id number], Partial fill upon patient request if the [...] Tot. Refills 0, Maintenance, 11/24/23 3:13:00 PM EST, Route to Pharmacy Electronically, [facility], Partial fill upon patient request [...] Refills, Maintenance, 11/24/23 3:15:00 PM EST, Tablet, [facility], Partial fill upon patient request [...] 11/24/23 3:13:00 PM EST,Route to Pharmacy Electronically, [facility], Partial fill upon patient request [...] on: 09/14/15 Sex Sex Representation Female (finding) Note * Floyd Reeder: PERFORM Event Display: Cardiac Rehab Note Authored Date: [id number] Patient no showed to CR - Phone call to patient cell - left vm with patient about rebooking CR appointment. - PJS Patient Care team information Care Team Personnel Name: Anuradha Flores RN Position: [facility] RN Member Role: Primary Care Nurse Name: Diana Romano MD Position: Reference Physician Member Role: PCP Address: [address] [place] [address], [facility] [address] Telecom: Name: Nadya Harrison RN Position: S RN Member Role: Primary Care Nurse Name: Carlee Concepcion RN Position: [facility] RN Member Role: Primary Care Nurse Name: Renate Bradley RN Position: S RN Member Role: Primary Care Nurse Name: Tita Scanlon RN Position: S RN Member Role: Primary Care Nurse Name: Lizbeth Maier RN Position: S RN Member Role: Primary Care Nurse Name: Heavenly Martino RN Position: S RN Member Role: Primary Care Nurse Name: Slick Martino RN Position: S RN Member Role: Primary Care Nurse Name: Elodia Garcia RN Position: S RN Member Role: Primary Care Nurse Name: Kelly Barba RN Position: S RN Member Role: Primary Care Nurse Name: Renee Graham RN Position: S RN Member Role: Primary Care Nurse Name: Anuradha Cai RN Position: S RN Member Role: Primary Care Nurse Name: Matty Joel MD Position: S Outreach Member Role: Lifetime Consulting Physician Address: [address] [facility], [address] Telecom: Name: Ash Soto MD Position: [facility] Renal MD Member Role: Lifetime Consulting Physician Address: [address] [facility] [address] Telecom: Name: Slick Armstrong RN Position: S RN Member Role: Primary Care Nurse Name: Araceli Pinto RN Position: S RN Member Role: Primary Care Nurse Name: Karen Resendez RN Position: S RN Member Role: Primary Care Nurse Name: Alber Hernández MD Position: [facility] Renal MD Member Role: Lifetime Consulting Physician Address: [address] [facility] [address] [facility] [address] Telecom: Name: Kavitha Choudhary RN Position: [...] Name: AMILCAR JOHNSON Insurance Providers Guarantor name: ALEXY WATTS Health Plan Information #: 1 Payer: NA Member Number: [id number] Policy Number: NA Group Number: [facility] Health Plan Information #: 2 Payer: NA Member Number: [id number] Policy Number: NA Group Number: NA
--- OUTSIDE RECORDS SUMMARY | 2024-12-03 13:33 | XMS_ITS | Continuity of Care Document ---
Author Organization [facility]. If a dditional information is needed, contact Health Information Management at [phone] Address [address] [place] [address] Phone Care Team Providers Care Export Administrator Name Role Phone Unavailable Unavailable Unavailable Unavailable Unavailable Unavailable Unavailable Unavailable Unavailable Unavailable Unavailable Unavailable Unavailable Unavailable Unavailable Unavailable Unavailable Unavailable Problems Disorder of toe Onset:16-Mar-2024 Talha Ackerman APRN Chest pain Onset:11-Jan-2015 Allergies and Adverse Reactions No Known Drug Intolerances(A llergy) Onset: 11-Jan-2015 Reaction:UNKNOWN Social History Smoking Status Never smoked tobacco Recorded: 16-Mar-2024 Vital Signs 16-Mar-2024 13:32 []97.7f Comments:97.7 []70 Comments:70 []16 Comments:16 []99 Comments:99 []5 Comments:5 []6in Comments:6 []95.455kg Comments:95.455 []164mm[Hg] Comments:164 []74mm[Hg] Comments:74 16-Mar-2024 13:32 GVF86ss/m2 Comments:34.0 Encounters Emergency Encounter Reason:RIGHT FOOT TOE PAIN Encounter Diagnosis:Exposure to other specified factors, initial encounter,Blister (nonthermal), right great toe, initial encounter 16-Mar-2024 13:[id number] 13:50 Deepika Feng MD (Attending) [facility] Discharge Disposition:Discharged to home or self care (routine discharge) ? ? ? Talha Ackerman APRN-16-Mar-2024 [facility] ([facility])EMERGENCY PROVIDER REPORTREPORT#:[id number] REPORT STATUS: SignedDATE:03/16/24 TIME: 1333PATIENT: TALIA WATTS UNIT #: [id number]#: [id number] ROOM/BED:AGE: 73 SEX: F PCP PHYS: Undefined ProviderSERVICE AUTHOR: TINO HIGHTOWER* ALL edits or amendments must be made on the electronic/computer document *TINO HIGHTOWER 03/16/24 1333:HPI-General IllnessGeneralInitial Greet Date/Time 03/16/24 1310PresentationChief Complaint __ (Right great toe blister)Free Text HPI NotesFree Text HPI [id number] female presents emergency department today for reports of a blisterunderneath her right great toe. Patient reports she has diabetes has been usingmedihoney reports she is from [place] it has not seen her primary care doctorin a couple weeks. Denies any pain. Denies any other additional signs orsymptomsReview of SystemsROS StatementsAll systems rev neg except as marked.Free Text ROS NotesFree Text ROS NotesSee HPIPast Medical History - AdultStated Complaint RIGHT FOOT TOE PAINAllergiesCoded Allergies:No Known Drug Intolerances (UNKNOWN 01/11/15)Smoking status for patients 13 years old or older: Never SmokerPhysical ExamVital SignsVital SignsFirst Documented: Result Date Time Pulse Ox 99 03/16 1323 B/P 164/74 03/16 1323 B/P Mean 104 03/16 1323 O2 Delivery Room air 03/16 1323 Temp 36.5 03/16 1323 Pulse 70 03/16 1323 Resp 16 03/16 1323Last Documented: Result Date Time Pulse Ox 99 03/16 1323 B/P 164/74 03/16 1323 B/P Mean 104 03/16 1323 O2 Delivery Room air 03/16 1323 Temp 36.5 03/16 1323 Pulse 70 03/16 1323 Resp 16 03/16 1323Review of Vital Signs ReviewedBasic Physical ExamBasic PE GEN: Well appearing/NAD, HEAD: Atraumatic/NC, EYES: PERRL, conj clear,ENT: Membranes moist, NECK: Supple, RESP: No resp distress, CV: Reg raterhythm, EXT: No gross abnormality, NEURO: alert oriented, NEURO: grossmovement NL, PSYCH: NL thought contentPhysical ExamSkin Text/Dict NotesBlistering noted underneath right great toe, no streaking, no drainage, noerythema, no obvious signs of a deep tissue infectionRe-Evaluation MDMFree Text MDM NotesFree Text MDM NotesVital signs stable patient is not have any obvious infection however due to herbeing a diabetic will cover with doxy and clinda, patient will follow-up withPCP. Return precautions are discussed. Patient states understanding.Patient Discharge DepartureVital Signs/ConditionVital SignsFirst Documented: Result Date Time Pulse Ox 99 03/16 1323 B/P 164/74 03/16 1323 B/P Mean 104 03/16 1323 O2 Delivery Room air 03/16 1323 Temp 36.5 03/16 1323 Pulse 70 03/16 1323 Resp 16 03/16 1323Last Documented: Result Date Time Pulse Ox 99 03/16 1323 B/P 164/74 03/16 1323 B/P Mean 104 03/16 1323 O2 Delivery Room air 03/16 1323 Temp 36.5 03/16 1323 Pulse 70 03/16 1323 Resp 16 03/16 1323All vital signs available at the time of this entry have been reviewed.Clinical ImpressionClinical ImpressionPrimary Impression: Blister of toeDisposition DecisionDischarge )( Discharged to Home Yes )( Time 1337 )( Date 03/16/24Discharge/Care Plan(Auto) PrescriptionsCurrent Visit ScriptsDoxycycline Monohydrate (Monodox) 100 MG PO Q12H 10 Days #20 CAPCLINDAMYCIN (CLEOCIN) 300 MG PO Q8H 7 Days #21 CAPPatient Instructions Blisters, AdultAdditional InstructionsBased on the evaluation performed here today, you do not appear to requireadmission to the hospital at this time for treatment. However, if somethingchanges or worsens, you should be seen by your primary care physician (PCP) orrebony for re-evaluation to the Emergency Department.WHAT DO I DO NEXT?You should take any prescription medications as instructed by your physician andnursing staff at discharge. If you were referred to a specialist at discharge,please contact their office to arrange follow up care with them. It is alsoimportant that you have follow up care with a primary care doctor who knows youwell and can monitor your health over the long-term. If you do not have acurrent PCP, we will be happy to make you are a referral to establish care withone.If you were prescribed narcotic medications or muscle relaxants, please do notdrive or operate heavy machinery after taking these as they may make you sleepyor delay your reaction time during these tasks.YOUR FOLLOW UP PLAN:Call your PCP to make an appointment in 1-2 days for follow-up on this EmergencyDepartment visit.Be certain to mention that you were evaluated here today and that thisappointment was recommended. Often clinics will have overbook appointments rosalina certain patients get follow up on Emergency Department visits.WHEN SHOULD I BE WORRIED AND CALL OR RETURN?:You should call or return right away if you develop new symptoms or worseningsymptoms that are concerning to you. It is also reasonable to call your primarycare doctor or nurse hotline for any reason or concern. If you have worseningchest pain, shortness of breath or difficulty breathing, persistent fevergreater than 100.4 that does not resolve with over the counter medications,bleeding, or other concerning problems, you need to be checked again by medicalpersonnel. When in doubt, you should seek medical attention - we are alwayshappy to participate in your careDeparture FormsWRK/LICO 2 DAYS NO RESTRICTIONS Discharge NoteI have spoken with the patient and/or caregivers. I have explained the patient'scondition, diagnoses and treatment plan based on the information available to meat this time. I have answered the patient's and/or caregiver's questions andaddressed any concerns. The patient and/or caregivers have as good anunderstanding of the patient's diagnosis, condition and treatment plan as can beexpected at this point. The vital signs have been stable. The patient'scondition is stable and appropriate for discharge from the emergency department.The patient will pursue further outpatient evaluation with the primary carephysician or other designated or consulting physician as outlined in thedischarge instructions. The patient and/or caregivers are agreeable to this planof care and follow-up instructions have been explained in detail. The patientand/or caregivers have received these instructions in written format and haveexpressed an understanding of the discharge instructions. The patient and/orcaregivers are aware that any significant change in condition or worsening ofsymptoms should prompt an immediate return to this or the closest emergencydepartment or a call to 1.PETR ARTEAGA 03/17/24 0955:Patient Discharge DepartureDischarge/Care PlanReferralsProvider Referral: NO PRIMARY OR FAMILY PHYSICIANSupervising Physician Note MidLv Saw Pt AloneI have reviewed the PA/CASTING OPERATOR's note and plan of care. I was available forconsultation as needed during the patient's visit in the emergency department.I did not see the patient. I was not consulted, aware of, or involved in thecare of this patient entirely at the discretion of the Advanced provider. Seethe medical record for details. I am administratively signing the medicalrecord after the patient's visit. at 1401 at 0957RPT #: [id number] OF REPORT Plan of Treatment Based on the evaluation performed here today, you do not appear to require admission to the hospital at this time for treatment. However, if something changes or worsens, you should be seen by your primary care physician (PCP) or return for re-evaluation to the Emergency Department. WHAT DO I DO NEXT? You should take any prescription medications as instructed by your physician and nursing staff at discharge. If you were referred to a specialist at discharge, please contact their office to arrange follow up care with them. It is also important that you have follow up care with a primary care doctor who knows you well and can monitor your health over the long-term. If you do not have a current PCP, we will be happy to make you are a referral to establish care with one. If you were prescribed narcotic medications or muscle relaxants, please do not drive or operate heavy machinery after taking these as they may make you sleepy or delay your reaction time during these tasks. YOUR FOLLOW UP PLAN: Call your PCP to make an appointment in 1-2 days for follow-up on this Emergency Department visit. Be certain to mention that you were evaluated here today and that this appointment was recommended. Often clinics will have ?overbook? appointments to be certain patients get follow up on Emergency Department visits. WHEN SHOULD I BE WORRIED AND CALL OR RETURN?: You should call or return right away if you develop new symptoms or worsening symptoms that are concerning to you. It is also reasonable to call your primary care doctor or nurse hotline for any reason or concern. If you have worsening chest pain, shortness of breath or difficulty breathing, persistent fever greater than 100.4 that does not resolve with over the counter medications, bleeding, or other concerning problems, you need to be checked again by medical personnel. When in doubt, you should seek medical attention - we are always happy to participate in your care Future Tests Future scheduled test information is unavailable Pending Tests Pending diagnostic test information is unavailable Future Visits Future appointment information is unavailable Referrals to Other Providers Reason for Referral Referral Start Date Provider Provider Contact Information Provider Address NO PRIMARY OR FAMILY PHYSICIAN Future Procedures Future procedure information is unavailable Future Medications Future medication information is unavailable Patient Instructions Blisters, Adult Assessments Diagnosis Onset Date Resolution Status Blister of toe Active
--- OUTSIDE RECORDS SUMMARY | 2024-12-03 13:33 | XMS_ITS | Continuity of Care Document ---
Author Organization [facility] Address [address] [place] [address]- Care Team Providers Care Prisoner Classification Interviewer Name Role Phone Rosalina AVILES, Diana Worley [id number] Date[facility]s): 10/22/24 - 11/21/24 [facility] [address] [place] [address] Encounter Type: Triage Allergies, Adverse Reactions, Alerts No Known Allergies Immunizations Given and Recorded Vaccine Date Status Refusal Reason influenza virus vaccine, inactivated 06/23/22 Anthony rded influenza virus vaccine, inactivated 07/15/21 Anthony rded influenza virus vaccine, inactivated 08/18/20 Anthony rded influenza virus vaccine, inactivated 08/05/20 Anthony rded influenza virus vaccine, inactivated 09/28/18 Give n influenza virus vaccine, inactivated 09/24/15 Anthony rded SARS-CoV-2 mRNA (dcddrdv-shbs-[id number]) vax 06/23/22 Recorded SARS-CoV-2 (COVID-19) mRNA BNT-162b2 [...] 3:02:00 PM EST, [id number], Partial fill upon patient request if the [...] 3:13:00 PM EST, Route to Pharmacy Electronically, [facility], Partial fill upon patient request [...] Refills, Maintenance, 11/24/23 3:15:00 PM EST, Tablet, [facility], Partial fill upon patient request [...] 11/24/23 3:13:00 PM EST,Route to Pharmacy Electronically, [facility], Partial fill upon patient request [...] Team Personnel Name: Anuradha Flores RN Position: [facility] RN Member Role: Primary Care Nurse Name: Diana Romano MD Position: Reference Physician Member Role: PCP Address: [address] [place] [address], [address] [place], [place] [address] Telecom: Name: Nadya Harrison RN Position: [facility] RN Member Role: Primary Care Nurse Name: Carlee Concepcion RN Position: S RN Member Role: Primary Care Nurse Name: Renate Bradley RN Position: S RN Member Role: Primary Care Nurse Name: Tita Scanlon RN Position: [facility] RN Member Role: Primary Care Nurse Name: Lizbeth Maier RN Position: S RN Member Role: Primary Care Nurse Name: Heavenly Martino RN Position: [facility] RN Member Role: Primary Care Nurse Name: Slick Martino RN Position: S RN Member Role: Primary Care Nurse Name: Elodia Garcia RN Position: [facility] RN Member Role: Primary Care Nurse Name: Kelly Barba RN Position: S RN Member Role: Primary Care Nurse Name: Renee Graham RN Position: S RN Member Role: Primary Care Nurse Name: Anuradha Cai RN Position: [facility] RN Member Role: Primary Care Nurse Name: Matty Joel MD Position: S Outreach Member Role: Lifetime Consulting Physician Address: [address] [facility] [address] [facility] [place], [place] [address]- Telecom: Name: Ash Soto MD Position: [facility] Renal MD Member Role: Lifetime Consulting Physician Address: [address] [facility] [address] Telecom: Name: Slick Armstrong RN Position: S RN Member Role: Primary Care Nurse Name: Araceli Pinto RN Position: S RN Member Role: Primary Care Nurse Name: Karen Resendez RN Position: S RN Member Role: Primary Care Nurse Name: Alber Hernández MD Position: [facility] Renal MD Member Role: Lifetime Consulting Physician Address: [address] [facility] [address] Telecom: Name: Kavitha Choudhary RN Position: [...] Name: AMILCAR JOHNSON Insurance Providers Guarantor name: [facility] Information #: 1 Payer: NA Member Number: NA Policy Number: NA Group Number: NA
--- OUTSIDE RECORDS SUMMARY | 2024-12-03 13:33 | XMS_ITS | Continuity of Care Document ---
Author Organization [facility] Address [address] [place] [id number] Care Team Providers Care Coater Smoking Pipe Name Role Phone [facility] Primary Care Provider [facility] OTHER Assessment Encounter Date Assessment Date Assessment LastModified by Organization Details LastModified Time 10/02/2024 10/02/2024 As noted, we ochoa haynes called to see this patient regarding concerns of shob and weakness. Evaluation in the field was performed by my in home baby sitter colleague, as noted above, I provided real-time [...] SNOMED-CT Code Diagnosis ICD10 Code Diagnosis Note [id number] Brina Hurd MD Main - [address] [address] 10/02/2024 19:18:11 10/02/2024 23:20:15 Postoperative visit [id number] Z48.89 Dyspnea [id number] R06.00 Health Concerns Section Related Observation LastModified by Organization Detai ls LastModified Time None Recorded Concern Status LastModified by Organization Details LastModified Time None Recorded Payers Encounter Date Sequence Insurance Name Policy Number Policy Braun Covered Member ID Braun Member ID Guarantor Name 10/02/2024 1 [facility] - DOS ON OR AFTER 2023 - DUAL ELIGIBLE - [facility] OPTIONS AND ONE CARE (MEDICARE REPLACEMENT/ADV ANTAGE - HMO) Milla Guzman [id number] Milla Guzman Notes Date Note Type Note [...] 2, Cholecystectomy Comments: gallbladder removal on Sunday. [place] sob since d/c from hospital yesterday. 02 [...] ..................... ..................... ..................... ..................... ..................... ..................... ............... Chicken Stuffer Note From Tyler Milligan: [facility] dispatched to the address listed above for the report of a female democrat with post op SOB. Patient was found [...] she recently had her gallbladder removed at [facility] on 09/30, patient reports that the [...] Patient baseline vital signs obtained as noted. [facility] was consulted and advised that the patient should go to the hospital to R/O a pulmonary embolism. Patient agreed to go to the hospital and [place] called 911 for patient. Patient report given to transporting ambulance without incident. ..................... ..................... ..................... ..................... ..................... ..................... ............... [facility] Consulted: Brina Hurd ..................... ..................... ..................... ..................... ..................... ..................... ............... Disposition: Fulfilled Brina Hurd MD [address] [facility],[address], [place], [address], BRETT - MICHAEL ASHRAF 10/02/2024 19:57:17 OBGyn Episode No OBEpisode recorded.
--- OUTSIDE RECORDS SUMMARY | 2024-12-03 13:33 | XMS_ITS | Continuity of Care Document ---
Author Organization [facility] Address [address] [place] [address]- Care Team Providers Care Web Engineer Name Role Phone Rosalina AVILES, Diana Worley Primary Care Physician Encounter [facility] NBR [id number] Date(s): 10/07/24 - 11/20/24 [facility] [address] [place] [id number] Attending Physician: Not on Staff, Attending MD Encounter Type: Pre-OutPatient One Time Allergies, Adverse Reactions, Alerts No Known Allergies Immunizations Given and Recorded Vaccine Date Status Refusal Reason influenza virus vaccine, inactivated 06/23/22 Anthony rded influenza virus vaccine, inactivated 07/15/21 Anthony rded influenza virus vaccine, inactivated 08/18/20 Anthony rded influenza virus vaccine, inactivated 08/05/20 Anthony rded influenza virus vaccine, inactivated 09/28/18 Give n influenza virus vaccine, inactivated 09/24/15 Anthony rded SARS-CoV-2 mRNA ([id number]-[id number]) vax 06/23/22 Recorded SARS-CoV-2 (COVID-19) mRNA BNT-162b2 [...] 3:02:00 PM EST, Route to Pharmacy Electronically, [id number], Partial fill upon patient request if the [...] 3:13:00 PM EST, Route to Pharmacy Electronically, [facility], Partial fill upon patient request if [...] Refills, Maintenance, 11/24/23 3:15:00 PM EST, Tablet, [facility], Partial fill upon patient request if [...] 11/24/23 3:13:00 PM EST,Route to Pharmacy Electronically, [facility], Partial fill upon patient request if [...] Status: Ordered Repeat number: 1 Vitamin D3 1999 intl units oral capsule TAKE 1 CAPSULE [...] Position: Reference Physician Member Role: PCP Address: [address] [place] [address], [address] [place], [place] [address] Telecom: Name: Nadya Harrison RN Position: S [...] Member Role: Lifetime Consulting Physician Address: [address] [facility], [place] [address]- Telecom: Name: Ash Soto MD Position: [facility] Renal MD Member Role: Lifetime Consulting Physician Address: [address] [facility] [address] Telecom: Name: Slick Armstrong RN Position: S RN Member Role: Primary Care Nurse Name: Araceli Pinto RN Position: S RN Member Role: Primary Care Nurse Name: Karen Resendez RN Position: S RN Member Role: Primary Care Nurse Name: Alber Hernández MD Position: [facility] Renal MD Member Role: Lifetime Consulting Physician Address: [address] [facility] [address] Telecom: Name: Kavitha Choudhary RN Position: [...] name: ALEXY WATTS Health Plan Information #: 2 Payer: MEDICARE PART B OUTPT Member Number: [id number] Policy Number: NA Group Number: NA Health Plan Information #: 1 Payer: NA Member Number: [id number] Policy Number: NA Group Number: [id number]
== END 2024-12-03 12:00 | disposition home or self-care (01) ==
PROVIDERS: PCP Internal Medicine; Visit Provider Internal Medicine Hypertension Specialist
DX: E11.22 Type 2 diabetes mellitus with diabetic chronic kidney disease (principal); N18.4 Chronic kidney disease, stage 4 (severe); D63.1 Anemia in chronic kidney disease; Z79.4 Long term (current) use of insulin; N40.1 Benign prostatic hyperplasia with lower urinary tract symptoms
CPT/HCPCS: 99214; G2211

== ENCOUNTER → 2024-12-03 11:26 | Outpatient (BNVA) | payer OTHER, SELFPAY | PROVIDERS: PCP Internal Medicine; Visit Provider Internal Medicine Hypertension Specialist | DX: E11.22 Type 2 diabetes mellitus with diabetic chronic kidney disease (principal); I50.9 Heart failure, unspecified; N18.4 Chronic kidney disease, stage 4 (severe); D63.1 Anemia in chronic kidney disease; Z79.4 Long term (current) use of insulin | CPT/HCPCS: 96372; 99212; Q5106 ==

== ENCOUNTER 2024-12-24 09:47 | Outpatient (AMB) | payer OTHER, SELFPAY ==
--- NOTE | 2024-12-24 10:06 | HO.NEPHOV_ITS ---
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: No Accompanied by: Spouse Allergies No Known Allergies Allergy (Verified 12/24/24 10:08) Medication List - Last Reconciled 12/24/24 by Martín De Luna MD albuterol sulfate 90 mcg/actuation (ProAir HFA) 2 puffs inhalation Q6H PRN albuterol sulfate 90 mcg/actuation (ProAir RespiClick) 1 inh inhalation Q4-6H PRN aspirin 81 mg PO DAILY atorvastatin 80 mg PO DAILY carvedilol 12.5 mg PO BID cholecalciferol (vitamin D3) 50 mcg PO DAILY ferrous sulfate (FeroSul) 325 mg PO DAILY furosemide 80 mg PO DAILY hydralazine 75 mg (1.5 x 50 mg) PO TID insulin glargine (Lantus Solostar U-100 Insulin) 62 units subcut DAILY insulin lispro (Humalog KwikPen (U-100) Insulin) subcut metolazone 2.5 mg PO DAILY PRN nifedipine ER mg PO DAILY pantoprazole 40 mg PO DAILY potassium chloride ER 10 mEq PO DAILY HPI Comments Details: 73-year-old pleasant woman with a history of diabetes mellitus for more than 35 years who was at chronic kidney disease. She is history of congestive heart failure and was on Entresto Lasix and furosemide. Back in November of 2023 creatinine was 2.6 with EGFR of 19 mL/minute. She is currently in nifedipine 60mg daily, hydralazine 75mg TID, carvedilol 12.5mg BID and furosemide 40mg PO BID She continues to have back pain. She has chronic shortness of breath (reports since prior to heart surgery last year which she states did not really help her breathing much. States at rest is ok, with exertion continues to have some dyspnea chronically). No nausea, vomiting. She has leg edema. Wears compression stockings. No weight loss. All other systems were reviewed History of congestive heart failure with preserved ejection fraction. 09/10/24 reports shortness of breath for a while now reports a year ago had open heart surgery, reports before then had it but surgery didn't make it better and has continued blood pressure medications- reports has not taken yet this a.m. Reports SBP at home is usually in 130s. 10/15/2024. Milla was hospitalized about a week ago. She had acute kidney injury superi mposed on CKD with fungemia. Serum creatinine peaked more than 4. Diuretics were held. Renal function gradually improved. She is currently not on diuretics creatinine is around 3. She has significant edema. No shortness of breath at present. Accompanied by her family member. She had recently undergone laparoscopic cholecystectomy for symptomatic cholelithiasis. During this hospitalization faustina was negative. He has been catheter was inserted 1121. She is currently on micafungin and Zosyn 12/03/24 BP was low She was hospitalzied @ [facility] Nov 2023 : Cr 2.20 Nov 2024 Cr 2.2 with eGFR of 22 ml/mt [facility] Medical History (Updated 10/15/24 @ 12:13 by SAMUEL Arias) Chronic kidney disease Degenerative joint disease (DJD) of hip Cataract Bunion Fatty liver DJD (degenerative joint disease), lumbar DJD (degenerative joint disease), cervical Diabetes mellitus type 2 with neurological manifestations Vitamin D deficiency Urinary incontinence Allergic rhinitis GERD (gastroesophageal reflux disease) Depression Diabetic retinopathy Hypertension Hyperlipidemia Diabetic nephropathy Surgical History History of cholecystectomy (~09/2024) History of open heart surgery (~02/2023) History of adjustable gastric banding Social History Patient Tobacco Use Status: Never used Tobacco Physical Exam Vital Signs: Last Vital Signs Pulse 68 12/24/24 10:07 BP 156/58 H 12/24/24 10:07 Pulse Ox 99 12/24/24 10:07 Oxygen Delivery Method Room Air 12/24/24 10:07 Office Meds epoetin disha-epbx 20,000 unit/mL injection solution Performing Provider: Martín De Luna MD [facility] Administered by: Martín De Luna MD on 12/24/24 10:21 Dose Route Admin Location Dispensed Lot Number Expiration Date [facility] [employer] Machine [employer] 20,000 unit subcut right arm 1 mL [id number] 04/18/26 1514-4864-93 [employer] Results Reviewed Results Reviewed: hgb 8.21 Nov 2023 : Cr 2.2 and 2.21 Nov 2024 Cr 2.2 Nephrology Results: No Data to Display Assessment & Plan Assessment & Plan (1) Chronic kidney disease: Code(s): N18.9 - Chronic kidney disease, unspecified Category: Medical Qualifiers: Chronic kidney disease stage: stage 4 (severe) Qualified Code(s): N18.4 - Chronic kidney disease, stage 4 (severe) (2) Anemia: Code(s): D64.9 - Anemia, unspecified Category: Medical Qualifiers: Anemia type: due to chronic kidney disease Chronic kidney disease stage: stage 4 (severe) Qualified Code(s): N18.4 - Chronic kidney disease, stage 4 (severe); D63.1 - Anemia in chronic kidney disease (3) Diabetes mellitus with chronic kidney disease: Code(s): E11.22 - Type 2 diabetes mellitus with diabetic chronic kidney disease Category: Medical Qualifiers: Diabetes mellitus type: type 2 Diabetes mellitus correction insulin use: with correction use Chronic kidney disease stage: stage 4 (severe) Qualified Code(s): E11.22 - Type 2 diabetes mellitus with diabetic chronic kidney disease; N18.4 - Chronic kidney disease, stage 4 (severe); Z79.4 - terminal superintendent (current) use of insulin Plan 73-year-old woman with a history of longstanding diabetes mellitus and coronary disease with stage IV CKD. CKD is most likely due to underlying diabetic kidney disease. Nondiabetic causes seem unlikely based on the clinical picture. Creatinine is marginally better at 2.15 (previously 2.29). Goal at this point is to slow the progression of renal disease. Maintain blood pressure less than 130/80 - she did not take her blood pressure medicine this morning Maintain A1c less than 7%. She is on adequate dose of diuretics at this time. She should stay on low-sodium diet which she is working on She will benefit from SGLT2 inhibitors. Hypertension. 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 Iron stores are adequate. Administered Retacrit 23724 U administered subcutaneously today into left arm secondary hyperparathyroidism Mild elevation PTH. She will follow this and start her on vitamin D3 analog as needed. All questions were answered she will return to office in 2-3 weeks Orders: Orders AMB Epoetin Injection Practice Supplied Today N40.1 - Benign prostatic hyperplasia with lower urinary tract symptoms Complete Blood Count no Diff 2 Weeks D63.1 - Anemia in chronic kidney disease, E11.22 - Type 2 diabetes mellitus with diabetic chronic kidney disease, N18.4 - Chronic kidney disease, stage 4 (severe), Z79.4 - terminal superintendent (current) use of insulin Medications: New epoetin disha-epbx 20,000 units subcut ONCE 1 mL 0RF anemia N40.1 - Benign prostatic hyperplasia with lower urinary tract symptoms Coding Level of Care Code Est Pt Level 4 (46580) Diagnoses Stage 4 chronic kidney disease N18.4 Chronic kidney disease stage: stage 4 (severe) Anemia due to stage 4 chronic kidney disease N18.4; D63.1 Anemia type: due to chronic kidney disease Chronic kidney disease stage: stage 4 (severe) Type 2 diabetes mellitus with stage 4 chronic kidney disease, with long-term current use of insulin E11.22; N18.4; Z79.4 Diabetes mellitus type: type 2 Diabetes mellitus correction insulin use: with terminal superintendent use Chronic kidney disease stage: stage 4 (severe)
[2024-12-24 10:07] VITALS: BP 156/58; PULSE 68; O2SAT 99
--- OUTSIDE RECORDS SUMMARY | 2024-12-24 10:33 | XMS_ITS | Encounter Summary ---
Author Organization [facility] Address [address] [place] [address] Care Team Providers Care Hockey Scout Name Role Phone Diana Romano MD Primary Care Provider [phone] Reason for Visit * Reason Comments Follow-up Encounter Details Date Type Department Care Team (Latest Contact Info) Description 12/16/2024 9:00 AM EST Office Visit Internal Medicine - [place] [address] [phone] Diana Romano MD [address] [phone] Routine medical exam (Primary Dx); 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); Primary hypertension; Stage 3b chronic kidney disease (CMS/HCC); Coronary artery disease involving newtok coronary artery of newtok heart without angina pectoris Social History Tobacco Use Types Packs/Day Years Used Date Smoking Tobacco: Never Smokeless Tobacco: Never Tobacco Cessation:Counseling Given: Not Answered Alcohol Use Standard Drinks/Week Comments No 0 (1 standard drink = 0.6 oz pur e alcohol) Sex and Gender Information Value Date Recorded Sex Assigned at Not on file Gender Identity Not on file Sexual Orientation Not on file Job Start Date Occupation Industry Not on file Not on file Not on file documented as of this encounter Last Filed Vital Signs Vital Sign Reading Time Taken Comments Blood Pressure 128/80 12/16/2024 9:13 AM EST Pulse 58 12/16/2024 9:12 AM EST Temperature 36.2 ??C (97.1 ??F) 12/16/2024 9:12 AM ES T Respiratory Rate - - Oxygen Saturation 98% 12/16/2024 9:12 AM EST Inhaled Oxygen Concentration - - Weight 93 kg (205 lb) 12/16/2024 9:12 AM EST Height - - Body Mass Index 33.09 12/12/2024 8:13 AM EST documented in this encounter Ordered Prescriptions Prescription Sig Dispensed Refills Start Date End Da te carvediloL (COREG) 12.5 mg tablet Take 1 tablet (12.5 mg total) by mouth 2 (two) times a day with meals. 180 tablet 3 12/16/2024 documented in this encounter Progress Notes * Diana Romano MD - 12/16/2024 9:00 AM EST CHIEF COMPLAINT: physical IDENTIFIER: Milla Guzman is a 73 y.o. old female who presents for evaluation of general medical health. HPI:coronary disease status post CABG in 2022, hypertension, CKD, heart failure with preserved EF, hyperlipidemia, recent laparoscopic cholecystectomy for symptomatic cholelithiasis Doing well,no new complaints ROS: GENERAL: No malaise, significant weight loss or fever HEENT: No changes in hearing or vision, nose bleeds or other nasal problems NECK: No lumps, goiter, pain or significant neck swelling RESPIRATORY: No cough, wheezing or shortness of breath CARDIOVASCULAR: No chest pain, leg swelling or palpitations GI: No abdominal discomfort, blood in stools or black stools : No dysuria, frequency or incontinence SOLUTIONS DELIVERY CONSULTANT: No abnormal vaginal bleeding or abnormal vaginal discharge. MUSCULOSKELETAL: No joint pain or swelling, back pain, or muscle pain. SKIN: No lesions, rash or itching PSYCH: No sleep disturbance, mood disorder or recent psychosocial stressors. HEMATOLOGY/LYMPHOLOGY No prolonged bleeding, easy bruisability or swollen nodes ENDOCRINE: No cold or heat intolerance, polyuria, polydipsia or goiter. NEURO: No persistent headache, syncope, seizures, weakness or numbness PAST MEDICAL HISTORY: Patient Active Problem List Diagnosis Date Noted (HFpEF) heart failure with preserved ejection fraction (CMS/HCC) 12/12/2024 Abdominal pain 12/09/2024 Hypotension 12/09/2024 Atypical chest pain 12/19/2023 Heart failure (CMS/HCC) 12/19/2023 Pulmonary edema 12/19/2023 Edema 09/25/2023 Coronary artery disease involving newtok coronary artery of newtok heart without angina pectoris 03/26/2023 Abnormal positron emission tomography (PET) scan 02/05/2023 Atypical angina ([facility]) 12/27/2022 Cholecystitis 12/27/2022 Nausea 12/27/2022 Shortness of breath 12/27/2022 Vomiting 12/27/2022 Chronic kidney disease 07/07/2022 Allergic rhinitis 02/13/2017 Diabetes mellitus type 2 with neurological manifestations ([facility]) 02/13/2017 DJD (degenerative joint disease), cervical 02/13/2017 DJD (degenerative joint disease), lumbar 02/13/2017 Fatty liver 02/13/2017 GERD (gastroesophageal reflux disease) 02/13/2017 Type 2 diabetes mellitus with cataract ([facility]) 02/13/2017 Urinary incontinence 02/13/2017 Venous insufficiency 02/13/2017 Vitamin D deficiency 02/13/2017 Depression 02/08/2017 Diabetic neuropathy ([facility]) 02/08/2017 Diabetic retinopathy ([facility]) 02/08/2017 Hyperlipidemia 02/08/2017 Hypertension 02/08/2017 Bunion 02/25/2014 Cataract 02/07/2014 Degenerative joint disease (DJD) of hip 12/12/2013 Past Surgical History: Procedure Laterality Date APPENDECTOMY PROCEDURE: VT APPENDECTOMY BUNIONECTOMY Bilateral PROCEDURE: BUNION SURGERY, SIMPLE REMOVAL CATARACT EXTRACTION PROCEDURE: HISTORICAL CATARACT REMOVAL CORONARY ARTERY BYPASS GRAFT LAPAROSCOPIC GASTRIC BANDING PROCEDURE: LAP ADJUSTABLE GASTRIC BAND OTHER SURGICAL HISTORY PROCEDURE: HISTORICAL TOTAL HYSTERECTOMY W/O BSO; COMMENT: for cervical cancer OTHER SURGICAL HISTORY PROCEDURE: ---- OTHER ----; COMMENT: venous ligation ROTATOR CUFF REPAIR Right -2014 PROCEDURE: HISTORICAL ROTATOR CUFF REPAIR Most Recent Immunizations Administered Date(s) Administered COVID-19 (Pfizer/Comirnaty) 12yo and older 08/06/2023 Influenza trivalent, 0.5mL (Fluad) 65yo and older 08/18/2020 Influenza trivalent, 0.5mL, preservative free (Fluarix; FluLaval; Fluzone) ages 6mo and older (Afluria) 3 years and older 09/24/2015 Pfizer (ages 12 & older) SARS-CoV-2 COVID-19, mRNA, LNP-S, shreyas-sucrose, preservative free 06/23/2022 LookUP SARS-CoV-2 COVID-19, mRNA, LNP-S, preservative free 09/06/2021 Pneumococcal conjugate 13 valent (Prevnar 13, PCV13) 2mo and older 01/02/2017 Pneumococcal polysaccharide 23 valent (Pneumovax 23) 2yo and older 02/05/2018 Tdap Tetanus diptheria acellular pertussis (Boostrix; Adacel) 7yo and older 06/21/2023 Zoster Live 09/19/2013 Zoster recombinant (Shingrix) 19yo and older 11/28/2019 HEALTH MAINTENANCE: Health Maintenance Topic Date Due Zoster Vaccines (3 of 3) 01/23/2020 Falls Risk Assessment Never done Depression Screening Never done Social Influencers of Health Screening Never done Diabetes: Blood Sugar Control Test (HGBA1C) 10/29/2022 Medicare Annual Wellness Visit 01/30/2023 Diabetes: Annual Urine Albumin-Creatinine Ratio (uACR) 06/21/2024 COVID-19 Vaccine () 07/20/2024 Diabetes: Annual Foot Exam 10/09/2024 Diabetes: Annual GFR (Glomerular Filtration Rate) 03/05/2025 Hypertension/CHF/CAD Annual BMP Blood Test 03/05/2025 Diabetes: Annual Retina Eye Exam 05/12/2025 Breast Cancer Screening 11/13/2026 Cholesterol Screening (Lipid Panel) 09/08/2029 Osteoporosis Screening (Bone Density Screening) 12/05/2032 DTaP,Tdap,and Td Vaccines (2 - Td or Tdap) 06/21/2033 Colorectal Cancer Screening: Colonoscopy 04/16/2034 Influenza Vaccine Completed Pneumococcal Vaccine: 65+ Years Completed Hepatitis C Screening Completed RSV Immunization Patients 60+ Years Old Completed HIB Vaccines Aged Out Hepatitis B Vaccines Aged Out IPV Vaccines Aged Out Hepatitis A Vaccines Aged Out MMR Vaccines Aged Out Varicella Vaccines Aged Out Meningococcal ACWY Vaccine Aged Out HPV Vaccines Aged Out RSV Immunization Patients Under 20 months Aged Out SOCIAL HISTORY: Social History Tobacco Use Smoking status: Never Smokeless tobacco: Never Substance Use Topics Alcohol use: No FAMILY HISTORY: Family History Problem Relation Name Age of Onset Arthritis Mother CAD, pulmonary embolus Coronary artery disease Father Family Status Relation Name Status Mother (Not Specified) Father (Not Specified) No partnership data on file MEDICATIONS DISCONTINUED/REORDERED: Medications Discontinued During This Encounter Medication Reason carvediloL (COREG) 25 mg tablet carvediloL (COREG) 12.5 mg tablet Reorder ACTIVE MEDICATIONS: Outpatient Medications Marked as Taking for the 12/16/24 encounter (Office Visit) with Diana Romano MD Medication Sig Dispense Refill acetaminophen (TYLENOL) 500 mg tablet Take 500 mg by mouth every 6 hours as needed. albuterol HFA (PROAIR HFA ; PROVENTIL HFA ; VENTOLIN HFA) 90 mcg/actuation inhaler Inhale 2 Puffs into the lungs every 6 hours as needed for Cough, Wheezing or Shortness of Breath. aspirin 81 mg EC tablet Take 1 tablet (81 mg total) by mouth 1 (one) time each day. atorvastatin (LIPITOR) 80 mg tablet Take 1 tablet (80 mg total) by mouth 1 (one) time each day. 30 tablet 2 blood pressure monitor kit 1 Each by Does not apply route as needed (use as needed). carvediloL (COREG) 12.5 mg tablet Take 1 tablet (12.5 mg total) by mouth 2 (two) times a day with meals. 180 tablet 3 cholecalciferol (VITAMIN D-3) 50 mcg (2,000 unit) capsule Take 1 capsule (2,000 Units total) by mouth 1 (one) time each day. docusate sodium (COLACE) 100 mg capsule Take 1 Capsule by mouth 2 times daily for 360 days. dulaglutide (Trulicity) 1.5 mg/0.5 mL pen injector injection Inject 1 Dose into the skin once a week. fluticasone propionate (FLONASE) 50 mcg/actuation nasal spray 2 Sprays by Nasal route daily. Pleasespray 2 sprays in each nostrils daily for 3-4 weeks, then down to 1 spray in each nostril daily. furosemide (LASIX) 40 mg tablet Take 2 tablets (80 mg total) by mouth 1 (one) time each day. hydrALAZINE (APRESOLINE) 50 mg tablet Take 1 tablet (50 mg total) by mouth 3 (three) times a day. insulin glargine (Lantus Solostar U-100 Insulin) 100 unit/mL (3 mL) injection pen Inject 40 Units into the skin at bedtime. insulin lispro (HumaLOG KwikPen Insulin) 100 unit/mL injection pen Inject into the skin. Sliding scale methenamine hippurate (HIPREX) 1 gram tablet Take 1 tablet (1 g total) by mouth 2 (two) times a day. metOLazone (ZAROXOLYN) 2.5 mg tablet Take 1 tablet by mouth daily as needed for swelling 15 tablet 1 multivitamin (MULTIPLE VITAMINS ORAL) Take by mouth daily. NIFEdipine XL (PROCARDIA XL) 30 mg 24 hr tablet Take 1 tablet (30 mg total) by mouth 1 (one) time each day before breakfast. Do not crush, chew, or split. 90 each 2 pantoprazole (PROTONIX) 40 mg EC tablet TAKE 1 TABLET BY MOUTH DAILY 90 tablet 1 pen needle, diabetic (BD Ultra-Fine Short Pen Needle) 31 gauge x 5/16 needle USE DIRECTED TO ADMINISTER INSULIN AND VICTOZA UP TO SIX TIMES DAILY potassium chloride (Pokonza) 10 mEq packet Take 1 tablet by mouth 2 (two) times a day. [DISCONTINUED] carvediloL (COREG) 12.5 mg tablet Take 1 tablet (12.5 mg total) by mouth 2 (two) times a day with meals. ALLERGIES: No Known Allergies PHYSICAL EXAM: Visit Vitals BP 128/80 (BP Location: Right arm, Patient Position: Sitting, BP Cuff Size: Large adult) Pulse 58 Temp 36.2 ??C (97.1 ??F) (Temporal) Wt 93 kg (205 lb) SpO2 98% BMI 33.09 kg/m?? OB Status Postmenopausal Smoking Status Never BSA 2.02 m?? Body mass index is 33.09 kg/m??. APPEARANCE: Alert and in no acute distress EYES: PERRLA, conjunctiva and sclera normal. Normal fundal exam. EARS: External ears normal. Canals clear. TMs normal. NOSE/SINUS: Nares normal. Septum midline. Mucosa normal. No drainage or sinus tenderness. MOUTH/THROAT: no erythema or exudates NECK: Neck supple, no adenopathy, thyroid symmetric and of normal size HEART: RRR with normal S1 and S2, no murmurs, no gallops, no JVD appreciated CHEST: non-tender LUNG: clear to auscultation LYMPH NODES: grossly normal ABDOMEN: Bowel sounds normoactive, no bruits, soft, non-tender, without organomegaly or palpable masses BACK: No pain to palpation with good flexion and extension EXTREMITIES: No edema, no discoloration NEURO: alert oriented 3 SKIN: Skin color, texture, turgor normal. No rashes or lesions LABS: Abstract on 09/04/2024 Component Date Value Ref Range Status Hepatitis C Screening 02/27/2023 abstracted Final Medicare Annual Wellness Visit 01/30/2022 abstracted Final Annual BMP Blood Test 03/05/2024 abstracted Final Colonoscopy 04/16/2024 no interpretation, abstracted Final Diabetes: Annual Retina Eye Exam 05/12/2024 abstracted Final Diabetes: Annual Foot Exam 10/09/2023 abstracted Final Urine Albumin Creatinine Ratio 06/21/2023 abstracted Final LDL/HDL Ratio 06/01/2021 3 0 - 4 Final Triglycerides 06/01/2021 125 0 - 150 mg/dL Final Cholesterol 06/01/2021 142 0 - 200 mg/dL Final HDL 06/01/2021 57 40 mg/dL Final LDL Cholesterol 06/01/2021 60 0 - 100 mg/dL Final Hemoglobin A1C 06/01/2021 9.1 (A) 6.5 % Final Medication and lab orders: Orders Placed This Encounter Procedures Basic metabolic panel Microalbumin creatinine urine ratio Other orders: None IMPRESSION: 1. Routine medical exam 2. 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) 3. Primary hypertension 4. Stage 3b chronic kidney disease (CMS/HCC) 5. Coronary artery disease involving newtok coronary artery of newtok heart without angina pectoris PLAN: Diabetes--following endocrine Dr. Desai, continue insulin,A1C 6.8 Anemia-hemoglobin 8.5, iron deficiency, continue iron supplement, patient is being scheduled for GIwork-up Chronic kidney disease--has been stable, following nephrology History of CABG--following cardiology Hypertension--continue amlodipine,carvedilol,losartan.Start hydralazine 25 mg BID. Hyperlipidemia--continue atorvastatin 80 mg Hypokalemia--Will order BMP today GERD--continue pantoprazole 40 mg daily Bilateral pedal edema--continue furosemide Follow-up in 4 months or sooner as needed Diana Romano MD on 12/16/2024 at 11:33 AM EST documented in this encounter Plan of Treatment Upcoming Encounters Date Type Department Care Team (Late st Contact Info) Description 12/25/2024 8:00 AM EST Ancillary Procedure [facility] [address] [place] [phone] 01/08/2025 10:30 AM EST Office Visit [facility] [address] [place] [address] Michael Torrez MD [address] [place] [address] [address] [place] [address] 04/10/2025 11:30 AM EDT Office Visit Internal Medicine - [place] [address] [place] [phone] Diana Romano MD 175 [facility] [address] [place] [address] Scheduled Orders Name Type Priority Associated Diagnoses Orde r Schedule Microalbumin creatinine urine ratio Lab Routine 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) Primary hypertension 1 Occurrences starting 12/16/2024 until 12/16/2025 documented as of this encounter Results * (ABNORMAL) Basic metabolic panel (12/16/2024 9:48 AM EST) Sodium 137 133 - 145 mmol/L LAB CHEMISTRY METHOD 12/16/2024 2:[address] [facility] Potassium 4.1 3.5 - 5.5 mmol/L LAB CHEMISTRY METHOD 12/16/2024 2:[address] [facility] Chloride 104 96 - 110 mmol/L LAB CHEMISTRY METHOD 12/16/2024 2:[address] [facility] CO2 29 21 - 32 mmol/L LAB CHEMISTRY METHOD 12/16/2024 2:[address] [facility] Anion Gap 4 3 - 11 LAB CHEMISTRY METHOD 12/16/2024 2:[address] [facility] Glucose 223(H) 70 - 100 mg/dL LAB CHEMISTRY METHOD 12/16/2024 2:56 PM EST [facility] BUN 36(H) 5 - 25 mg/dL LAB CHEMISTRY METHOD 12/16/2024 2:[address] [facility] Creatinine 2.33(H) 0.50 - 1.10 mg/dL LAB CHEMISTRY METHOD 12/16/2024 2:[address] [facility] eGFR 22(L) >=60 mL/min/1. 73m2 LAB CHEMISTRY METHOD 12/16/2024 2:[address] [facility] Comment:Calculation based on the??Chronic Kidney Disease Epidemiology Collaboration (CKD-EPI) equation refit??without adjustment for race. BUN/Creatinine Ratio 15.5 LAB CHEMISTRY METHOD 12/16/2024 2:[address] [facility] Calcium 9.2 8.5 - 10.5 mg/dL LAB CHEMISTRY METHOD 12/16/2024 2:[address] [facility] Blood Venous blood specimen / Unknown Venipuncture / Unknown 12/16/2024 9:48 AM EST 12/16/2024 9:48 AM EST Diana Romano MD LAB BLOOD ORDERABLES [facility] [address] [place] [address], documented in this encounter Visit Diagnoses Diagnosis Routine medical exam- Primary Routine general medical examination at a health care facility Diabetes mellitus type 2 with neurological manifestations ([facility]) Primary hypertension Unspecified essential hypertension Stage 3b chronic kidney disease ([facility]) Coronary artery disease involving newtok coronary artery of newtok heart without angina pectoris documented in this encounter Discontinued Medications Medication Sig Discontinue Reason Start Date End Da te carvediloL (COREG) 25 mg tablet Take 12.5 mg by mouth 2 (two) times a day with meals. 12/16/2024 carvediloL (COREG) 12.5 mg tablet Take 1 tablet (12.5 mg total) by mouth 2 (two) times a day with meals. Reorder 12/16/2024 documented as of this encounter Historical Medications * This list may reflect changes made after this encounter. Medication Sig Dispensed Refills Start Date End Date carvediloL (COREG) 12.5 mg tablet Take 1 tablet (12.5 mg total) by mouth 2 (two) times a day with meals. 12/16/2024 added in this encounter Care Teams Hockey Scout Relationship Specialty Start Date End Date Diana Romano MD [address] [phone] PCP - General Internal Medicine 02/25/13 documented as of this encounter
--- OUTSIDE RECORDS SUMMARY | 2024-12-24 10:33 | XMS_ITS | Encounter Summary ---
Author Organization [facility] Address [address] [place] [address] Care Team Providers Care Waistband Setter Name Role Phone Diana Romano MD Primary Care Provider [phone] Reason for Visit * Reason Onset Date Comments Med Dose Change 11/24/2024 Encounter Details Date Type Department Care Team (Late st Contact Info) Description 11/24/2024 Telephone [facility] [place] [address] [place] [phone] Michael Torrez MD [address] [place] [address] [address] [place], [place] [phone] Med Dose Change Social History Tobacco Use Types Packs/Day Years Used Date Smoking Tobacco: Never Smokeless Tobacco: Never Alcohol Use Standard Drinks/Week Comments No 0 (1 standard drink = 0.6 oz pur e alcohol) Sex and Gender Information Value Date Recorded Sex Assigned at Not on file Gender Identity Not on file Sexual Orientation Not on file Job Start Date Occupation Industry Not on file Not on file Not on file documented as of this encounter Progress Notes * Isha Miller RN - 11/24/2024 5:02 PM EST Pt informed of the below message and voiced understanding. Med module updated * Pancho Montes De Oca NP - 11/24/2024 4:41 PM EST Yes, continue with carvedilol 12.5mg twice daily * Isha Miller RN - 11/24/2024 3:50 PM EST I spoke to Milla for 13 minutes. She was hospitalized at [facility] from 10/20-10/27 for Novoa dislodgementand shortness of breath. Pt was advised to restart Lasix 40 mg BID, advised and Coreg was increasedto 25 mg BID. Yesterday, pt felt weak and SOB. She went to the ER and her BP was 95/45. The ER provider advised her to contact Cardiology regarding the Carvedilol dosage. This AM, she took Carvedilol 12.5 mg tablet and her BP at 1 PM was 145/ 60 something. She still feels weak, reports fatigue and SOB on exertion, BLE edema after walking around, and has not urinated since taking her Lasix at noon. She denies s/s of UTI. She weighs 203 lbs today and weighed 216 lbs after 10/27 discharge. Pt hasnot trialed Metolazone since September and stated it did not work at that time. Encouraged pt to cont inue elevating BLEs and wearing compression stockings during the day, maintain a low salt diet, andmonitor daily weight. Pending a follow up with you on 12/10/24. Can she continue decreased dose of Carvedilol 12.5 mg BID? * Omid Amador - 11/24/2024 2:48 PM EST Patient called to discuss about her medication being changed when she went to the hospital on 10/12/24 for low blood pressure. Her carvedilol went from 12.5 mg twice a day to 25 mg twice a day which she thinks may have been the reason for low blood pressure. She would like to speak to somebody about the change in medication and what to do moving forward. documented in this encounter Plan of Treatment Upcoming Encounters Date Type Department Care Team (Late st Contact Info) Description 12/25/2024 8:00 AM EST Ancillary Procedure [facility] [address] [place] [phone] 01/08/2025 10:30 AM EST Office Visit [facility] [address] [place] [address] [place] [address] Michael Torrez MD [address] [place] [address] [address] [place] [address] 04/10/2025 11:30 AM EDT Office Visit Internal Medicine - [place] [address] [place] [phone] Diana Romano MD [address] [place] [phone] documented as of this encounter Visit Diagnoses Not on filedocumented in this encounter Care Teams Waistband Setter Relationship Specialty Start Date End Date Diana Romano MD [address] [place] [phone] PCP - General Internal Medicine 02/25/13 documented as of this encounter
--- OUTSIDE RECORDS SUMMARY | 2024-12-24 10:33 | XMS_ITS | Encounter Summary ---
Author Organization [facility] Address [address] [place] [address] Care Team Providers Care Riding Silks Custodian Name Role Phone Diana Romano MD Primary Care Provider [phone] Reason for Referral * Cardiac Stress Testing (Routine) - Authorized Specialty Diagnoses / Procedures Referred By Contac t Referred To Contact Cardiology Diagnoses Coronary artery disease involving lumbee coronary artery of lumbee heart without angina pectoris Atypical chest pain Procedures Nuclear stress test with myocardial perfusion TN MYOCARDIAL PERFUSION IMAGING TOMOGRAPHIC MULTI STUDIES AT REST OR STRESS TN MYOCARDIAL PERFUSION IMAGING TOMOGRAPHIC SINGLE STUDY AT REST OR STRESS TN CARDIOVASCULAR STRESS TEST GLOBAL TN CV TMST/BIKE MAX/SUBMAX CONTINUOUS ECG MON/PHARM STRESS SUPVSR ONLY TN CV STRESS TEST/BIKE CONT ECG MON/PHARM STRESS INTERP & REPORT ONLY TN TEST STRESS CARDIOVASCULAR TRACING ONLY Christiane Sanders NP [address] [place] [address] [place] [address] [facility] Referral ID Status Reason Start Date Expiration Date V isits Requested Visits Authorized [id number] Authorized 12/12/2024 12/12/2025 1 1 Reason for Visit * Reason Comments Follow-up Encounter Details Date Type Department Care Team (Latest Contact Info) Description 12/12/2024 8:10 AM EST Office Visit [facility] [address] [place] [address] [place] [phone] Christiane Sanders NP [address] [place] [address] [place] [address] Coronary artery disease involving lumbee coronary artery of lumbee heart without angina pectoris (Primary Dx); Atypical chest pain; Chronic heart failure with preserved ejection fraction (CMS/HCC); Hypertension, unspecified type; Hyperlipidemia, unspecified hyperlipidemia type Social History Tobacco Use Types Packs/Day Years [...] Sign Reading Time Taken Comments Blood Pressure 108/50 12/12/2024 8:13 AM EST Pulse 60 12/12/2024 8:13 AM EST Temperature - - Respiratory Rate - - Oxygen Saturation 98% 12/12/2024 8:13 AM EST Inhaled Oxygen Concentration - - Weight 98.9 kg (218 lb) 12/12/2024 8:13 AM EST Height 167.6 cm (5' 6 ) 12/12/2024 8:13 AM EST Body Mass Index 35.19 12/12/2024 8:13 AM EST documented in this encounter Ordered Prescriptions Prescription Sig Dispensed Refills Start Date End Da te NIFEdipine XL (PROCARDIA XL) 30 mg 24 hr tabletIndications:Coronary artery disease involving lumbee coronary artery of lumbee heart without angina pectoris Take 1 tablet (30 mg total) by mouth 1 (one) time each day before breakfast. Do not crush, chew, or split. 90 each 2 12/12/2024 documented in this encounter Progress Notes * Christiane Sanders, YOLY - 12/12/2024 8:10 AM ESTAssociated Problem(s): Coronary artery disease involving lumbee coronary artery of lumbee heart without angina pectoris Patient with history of coronary artery disease s/p CABG in 2022. Today she is reporting atypical chest pain, seems to be associated with where her Novoa was placed, yet at times she reports that it radiates to her left chest and wraps around under her left arm. Will further assess with a pharmacological nuclear stress test as she is unable to walk on a treadmill. She continues on aspirin, atorvastatin, carvedilol and nifedipine. Patient advised to seek emergency medical attention by calling 911 if they were to develop severe dyspnea, chest pain that did not resolve with rest or nitroglycerin, or if they were to faint. Orders: Nuclear stress test with myocardial perfusion; Future NIFEdipine XL (PROCARDIA XL) 30 mg 24 hr tablet; Take 1 tablet (30 mg total) by mouth 1 (one) time each day before breakfast. Do not crush, chew, or split. * Christiane Sanders NP - 12/12/2024 8:10 AM ESTAssociated Problem(s): Atypical chest pain See CAD plan. Orders: Nuclear stress test with myocardial perfusion; Future * Christiane Sanders NP - 12/12/2024 8:10 AM ESTAssociated Problem(s): Hypertension With history of hypertension, reporting symptomatic lower blood pressures in the morning. Today we decreased her nifedipine to 30 mg daily. She will log her blood pressure midmorning as well as in the evening and come back for further assessment based on these readings. May need to alter her hydralazine dosing as well. Advised to make sure she is drinking enough water in the morning. Will continue to monitor. Sanders NP - 12/12/2024 8:10 AM ESTAssociated Problem(s): Hyperlipidemia Continues on atorvastatin as prescribed. LDL cholesterol completed in August 2024 showing a level of 50 which is demonstrating excellent control. Sanders NP - 12/12/2024 8:10 AM ESTAssociated Problem(s): (HFpEF) heart failure with preserved ejection fraction (CMS/HCC) Patient with history of HFpEF. She has lymphedema as well. Today she is wearing her compression stockings, has mild lower extremity edema, nonpitting. She reports that her weights have been stable with no increase. No JVD. Continue on Lasix 40 mg twice daily and metolazone as needed. She had recentechocardiogram in September 2024 while hospitalized at [facility] which was reviewed. * Christiane Sanders NP - 12/12/2024 8:10 AM EST Images from the original note were not included. [facility] PRIMARY CERAMICS TEACHER: Michael Torrez MD PCP: Diana Romano MD HPI: Talia Guzman is a 73 y.o. old female with past medical history of coronary artery disease with severeleft main disease status post two-vessel coronary artery bypass graft with GRIMM to LAD and SVG to RPL A in February 2023, chronic diastolic heart failure, insulin-dependent diabetes, atypical chest pain, systemic hypertension, chronic edema, obesity, and strong family history of coronary artery disease. On 06/17/2024 patient underwent an echocardiogram. This revealed normal left ventricular size and wall thickness. Left ventricular systolic function appears normal on limited views. No wall motion abnormalities were seen. The left ventricular ejection fraction is 55 to 60%. No hemodynamically significant valvular dysfunction no significant change compared to previous study in 2021. On 05/2024 patient underwent a lower extremity venous duplex for venous insufficiency. On the right side there was no evidence of DVT. The saphenofemoral junction, common femoral, femoral and popliteal veins are competent. There is no superficial venous thrombosis. No venous reflux noted in the small saphenous vein. Findings consistent with successful greater saphenous vein ablation. No venous reflux noted in the lower calf greater saphenous vein. On the left there was no evidence of DVT. No saphenofemoral junction, common femoral, femoral, and popliteal veins are competent. No superficial venous thrombosis. No venous reflux noted in the smallsaphenous vein. No venous reflux noted in the greater saphenous vein. Patient has had multiple hospitalizations since she was last seen. September 2024 she underwent a cholecystectomy and had complications with postoperative Candidemia requiring Novoa placement for treatment. She also developed acute kidney injury during this day as well as right sided pleural effusion. She had an echocardiogram completed 10/03/2024 showing LVEF 55 to 60% significant changes from previous. The patient presented to the [facility] emergency department on 11/23/2024 for generalized weakness, nausea, pain in a bandlike distribution around her lower ribs and a blood pressure reading of 95/45 athome. EKG nonischemic. High- sensitivity troponin levels of 36, 33, 33. She was discharged home and her carvedilol dose was decreased. Patient presents today for hospital follow-up. She does report pain in her right chest occasionallynear where her Novoa site was, get at times this pain radiates down to her left chest and under her left armpit. She reports this pain occurs at rest, and has occurred when she is laying in bed. She reports that in the morning after taking her medications she does feel some dizziness and lightheadedness. She has noticed occasionally low blood pressure readings in the morning with systolic around 90s. She denies dyspnea, palpitations, increased peripheral edema, orthopnea or PND. She wears compression stockings on her lower extremities and reports that her weight has been at baseline. ACTIVE MEDICATIONS: Outpatient Medications Marked as Taking for the 12/12/24 encounter (Office Visit) with Christiane Sanders NP Medication Sig Dispense Refill acetaminophen (TYLENOL) 500 [...] as needed (use as needed). carvediloL (COREG) 25 mg tablet Take 12.5 mg by mouth 2 (two) times a day with meals. cholecalciferol (VITAMIN D-3) 50 mcg (2,000 unit) [...] (MULTIPLE VITAMINS ORAL) Take by mouth daily. pantoprazole (PROTONIX) 40 mg EC tablet TAKE 1 TABLET BY MOUTH DAILY 90 tablet 1 pen needle, diabetic (BD Ultra-Fine Short Pen Needle) 31 gauge x 5/16 needle USE DIRECTED TO ADMINISTER INSULIN AND VICTOZA UP TO SIX TIMES DAILY potassium chloride (Pokonza) 10 mEq packet Take 1 tablet by mouth 2 (two) times a day. [DISCONTINUED] NIFEdipine CC (ADALAT CC) 60 mg 24 hr tablet Take 1 tablet (60 mg total) by mouth 1 (one) time each day. 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) Diabetic neuropathy (CMS/HCC) Diabetic retinopathy (CMS/HCC) DJD (degenerative joint disease), cervical DJD (degenerative joint disease), lumbar Edema Fatty liver GERD (gastroesophageal reflux disease) Heart failure (CMS/HCC) Hyperlipidemia Hypertension Nausea Pulmonary edema Shortness of breath Type 2 diabetes mellitus with cataract (CMS/HCC) Urinary incontinence Venous insufficiency Vitamin D deficiency Vomiting Abdominal pain Hypotension (HFpEF) heart failure with preserved ejection fraction (CMS/HCC) ALLERGIES: No Known Allergies SOCIAL HISTORY: Social History Tobacco Use Smoking status: Never Smokeless tobacco: Never Substance Use Topics Alcohol use: No PHYSICAL EXAM: Vitals: 12/12/24 0813 BP: 108/50 BP Location: Left arm Patient Position: Sitting BP Cuff Size: Adult Pulse: 60 SpO2: 98% Weight: 98.9 kg (218 lb) Height: 1.676 m (66 ) Physical Exam Constitutional: General: She is not in acute distress. Appearance: She is well-developed. She is obese. She is not diaphoretic. HENT: Head: Normocephalic. Eyes: Pupils: Pupils are equal, round, and reactive to light. Neck: Vascular: No carotid bruit, hepatojugular reflux or JVD. Cardiovascular: Rate and Rhythm: Normal rate and regular rhythm. Pulses: Normal pulses and intact distal pulses. Heart sounds: Normal heart sounds, S1 normal and S2 normal. No murmur heard. Pulmonary: Effort: Pulmonary effort is normal. Breath sounds: Normal breath sounds. No wheezing, rhonchi or rales. Chest: Chest wall: No tenderness. Abdominal: General: Bowel sounds are normal. There is no distension. Palpations: Abdomen is soft. Tenderness: There is no abdominal tenderness. Musculoskeletal: General: No deformity. Right lower leg: Edema present. Left lower leg: Edema present. Comments: Mild lower ext edema; non pitting. Skin: General: Skin is warm and dry. Neurological: Mental Status: She is alert and oriented to person, place, and time. Psychiatric: Attention and Perception: Attention normal. Mood and Affect: Mood normal. Speech: Speech normal. EKG: None completed today. ASSESSMENT/PLAN: Assessment & Plan Coronary artery disease involving lumbee coronary artery of lumbee heart without angina pectoris Patient with history of coronary artery disease s/p CABG in 2022. Today she is reporting atypical chest pain, seems to be associated with where her Novoa was placed, yet at times she reports that it radiates to her left chest and wraps around under her left arm. Will further assess with a pharmacological nuclear stress test as she is unable to walk on a treadmill. She continues on aspirin, atorvastatin, carvedilol and nifedipine. Patient advised to seek emergency medical attention by calling 911 if they were to develop severe dyspnea, chest pain that did not resolve with rest or nitroglycerin, or if they were to faint. Orders: Nuclear stress test with myocardial perfusion; Future NIFEdipine XL (PROCARDIA XL) 30 mg 24 hr tablet; Take 1 tablet (30 mg total) by mouth 1 (one) time each day before breakfast. Do not crush, chew, or split. Atypical chest pain See CAD plan. Orders: Nuclear stress test with myocardial perfusion; Future Chronic heart failure with preserved ejection fraction (CMS/HCC) Patient with history of HFpEF. She has lymphedema as well. Today she is wearing her compression stockings, has mild lower extremity edema, nonpitting. She reports that her weights have been stable with no increase. No JVD. Continue on Lasix 40 mg twice daily and metolazone as needed. She had recentechocardiogram in September 2024 while hospitalized at [facility] which was reviewed. Hypertension, unspecified type With history of hypertension, reporting symptomatic lower blood pressures in the morning. Today we decreased her nifedipine to 30 mg daily. She will log her blood pressure midmorning as well as in the evening and come back for further assessment based on these readings. May need to alter her hydralazine dosing as well. Advised to make sure she is drinking enough water in the morning. Will continue to monitor. Hyperlipidemia, unspecified hyperlipidemia type Continues on atorvastatin as prescribed. LDL cholesterol completed in August 2024 showing a level of 50 which is demonstrating excellent control. Thank you for allowing us to participate in the care of this patient. The patient will follow up in1-2 mo, sooner PRN. As per AHA guidelines and previously established plan of care by Dr. Michael Torrez MD, we discussed the following today: Chest discomfort, CAD, HTN, HLD, LE edema, HFpEF. [facility] documented in this encounter Plan of Treatment Upcoming Encounters Date Type Department Care Team (Late st Contact Info) Description 12/25/2024 8:00 AM EST Ancillary Procedure [facility] - [address] [place] [address] 01/08/2025 10:30 AM EST Office Visit [facility] [address] [place] [address] Michael Torrez MD [address] [place] [address] [address] [place] [address] 04/10/2025 11:30 AM EDT Office Visit Internal Medicine - [place] [address] [place] [phone] Diana Romano MD [address] [place] [address] Scheduled Orders Name Type Priority Associated Diagnoses Order Schedule Nuclear stress test with myocardial perfusion Cardiac Nuclear Medicine Routine Coronary artery disease involving lumbee coronary artery of lumbee heart without angina pectoris Atypical chest pain 1 Occurrences starting 12/12/2024 until 12/12/2025 documented as of this encounter Visit Diagnoses Diagnosis Coronary artery disease involving lumbee coronary artery of lumbee heart without angina pectoris- Primary Atypical chest pain Other chest pain Chronic heart failure with preserved ejection fraction (CMS/HCC) Hypertension, unspecified type Hyperlipidemia, unspecified hyperlipidemia type documented in this encounter Discontinued Medications Medication Sig Discontinue Reason Start Date End Da te NIFEdipine CC (ADALAT CC) 60 mg 24 hr tablet Take 1 tablet (60 mg total) by mouth 1 (one) time each day. 12/14/2023 12/12/2024 oxiconazole (OXISTAT) 1 % lotion Apply 1 Applicator topically 2 times daily for 7 days. Therapy completed 04/11/2024 12/12/2024 documented as of this encounter Care Teams Riding Silks Custodian Relationship Specialty Start Date End Date Diana Romano MD [address] [place] [phone] PCP - General Internal Medicine 02/25/13 documented as of this encounter
--- OUTSIDE RECORDS SUMMARY | 2024-12-24 10:33 | XMS_ITS | Encounter Summary ---
Author Organization [facility] Address [address] [place] [address] Care Team Providers Care Nipple Maker Name Role Phone Diana Romano MD Primary Care Provider [phone] Encounter Details Date Type Department Care Team ([facility] st Contact Info) Description 11/13/2024 Telephone Internal Medicine - [place] [address] [facility] [address] [place] [address] Bernice Elizondo MA Social History Tobacco Use Types Packs/Day Years [...] as of this encounter Progress Notes * Bernice Elizondo MA - 11/13/2024 10:45 AM EST Called pt no answer unable to leave vm. * Bernice Elizondo MA - 11/13/2024 10:45 AM EST ----- Message from Carolyn Romano MD sent at 11/13/2024 9:30 AM EST ----- Please contact patient in regards to recent mammogram results. Mammogram was unremarkable with no signs of masses. Recommend repeat testing in 1 year. Thank you. documented in this encounter Plan of Treatment Upcoming Encounters Date Type Department Care Team (Late st Contact Info) Description 12/25/2024 8:00 AM EST Ancillary Procedure [facility] - [address] [place] [address] 01/08/2025 10:30 AM EST Office Visit [facility] [address] [place] [address] Michael Torrez MD [address] [place] [address] [address] [place] [address] 04/10/2025 11:30 AM EDT Office Visit Internal Medicine - [place] [address] [place] [phone] Diana Romano MD [address] [place] [phone] documented as of this encounter Visit Diagnoses Not on filedocumented in this encounter Care Teams Nipple Maker Relationship Specialty Start Date End Date Diana Romano MD [address] [place] [phone] PCP - General Internal Medicine 02/25/13 documented as of this encounter
--- OUTSIDE RECORDS SUMMARY | 2024-12-24 10:33 | XMS_ITS | Continuity of Care Document ---
Author Organization [facility] Address [address] [place] [address]- Care Team Providers Care Presetter Operator Name Role Phone Rosalina AVILES, Diana Worley Primary Care Physician Encounter [facility] Date(s): 11/05/24 - 12/05/24 [facility] [address] [place] [id number] Attending Physician: Admtr, Ar8 Admitting Physician: Admtr, Ar8 Referring Physician: Admtr, Ar8 Encounter Type: Triage Allergies, Adverse Reactions, Alerts No Known Allergies Immunizations Given and Recorded Vaccine Date Status Refusal Reason influenza virus vaccine, inactivated 06/23/22 Anthony rded influenza virus vaccine, inactivated 07/15/21 Anthony rded influenza virus vaccine, inactivated 08/18/20 Anthony rded influenza virus vaccine, inactivated 08/05/20 Anthony rded influenza virus vaccine, inactivated 09/28/18 Give n influenza virus vaccine, inactivated 09/24/15 Anthony rded SARS-CoV-2 mRNA ([id number]) vax 06/23/22 Recorded SARS-CoV-2 (COVID-19) mRNA [id number] [...] 3:02:00 PM EST, Route to Pharmacy Electronically, [id number], Partial fill upon patient request if the [...] 3:13:00 PM EST, Route to Pharmacy Electronically, [facility], Partial fill upon patient request if [...] Refills, Maintenance, 11/24/23 3:15:00 PM EST, Tablet, [facility], Partial fill upon patient request if [...] 269 6 units 270 - 319 8 - 369 10 units Call if greater [...] 11/24/23 3:13:00 PM EST,Route to Pharmacy Electronically, [facility], Partial fill upon patient request if [...] Position: Reference Physician Member Role: PCP Address: [address] [place] [address], [facility] [address] [place], [place] [address] Telecom: Name: Nadya Harrison RN [...] Outreach Member Role: Lifetime Consulting Physician Address: [address] [place] [address] [address] [facility] Telecom: Name: Ash Soto MD Position: [facility] Renal MD Member Role: Lifetime Consulting Physician Address: [facility] [place] [address] [facility] [address] Telecom: Name: Slick Armstrong RN Position: S RN Member Role: Primary Care Nurse Name: Araceli Pinto RN Position: S RN Member Role: Primary Care Nurse Name: Karen Resendez RN Position: S RN Member Role: Primary Care Nurse Name: Alber Hernández MD Position: [facility] Renal MD Member Role: Lifetime Consulting Physician Address: [address] [place] [address] [facility] [address] Telecom: Name: Kavitha Choudhary RN Position: [...] AMILCAR JOHNSON Insurance Providers Guarantor name: [employer] [facility] Information #: 1 Payer: NA Member Number: NA Policy Number: NA Group Number: NA
--- OUTSIDE RECORDS SUMMARY | 2024-12-24 10:33 | XMS_ITS | Encounter Summary ---
Author Organization [facility] Address [address] [place] [address] Care Team Providers Care Mri Manager Name Role Phone Diana Romano MD Primary Care Provider [phone] Reason for Visit * Reason Onset Date Comments VNA call 11/26/2024 Encounter Details Date Type Department Care Team (Late st Contact Info) Description 11/26/2024 Telephone Internal Medicine - [place] [address] [phone] Diana Romano MD [address] [phone] [facility] call Social History Tobacco Use Types Packs/Day Years [...] as of this encounter Progress Notes * Diana Romano MD - 11/28/2024 6:10 AM EST noted * Shasha Chaudhry RN - 11/26/2024 11:00 AM EST FYI from A, please see below. Pt has been in contact with her furniture dipper, spoke w/ them about this issue already on 11/24, has upcoming appt w/ cardiology 12/10. Next appt w/ PCP is 12/16 Dr. Rosalina Horton from [facility] called and wanted to let the doctor know as an FYI: patient hasbeen feeling weak with headaches and low blood pressure the past 4 days. He stated she has a cardiology appt coming up so she will be getting medication adjustments, but he wanted to let the doctor know. * Susan Vasquez - 11/26/2024 10:53 AM EST Clifford from [facility] called and wanted to let the doctor know as an FYI: patient has been feeling weak with headaches and low blood pressure the past 4 days. He stated she has a cardiology appt coming up so she will be getting medication adjustments, but he wanted to let the doctor know. documented in this encounter Plan of Treatment Upcoming Encounters Date Type Department Care Team (Late st Contact Info) Description 12/25/2024 8:00 AM EST Ancillary Procedure [facility] [address] [facility] [place] [address] [place] [id number] 01/08/2025 10:30 AM EST Office Visit [facility] Cardiology [facility] [address] [place] [address] Michael Torrez MD [address] [place] [address] [address] [place] [address] 04/10/2025 11:30 AM EDT Office Visit Internal Medicine - [place] 175 [facility] [address] [place] [phone] Diana Romano MD 175 [facility] [address] [place] [phone] documented as of this encounter Visit Diagnoses Not on filedocumented in this encounter Care Teams Mri Manager Relationship Specialty Start Date End Date Diana Romano MD [address] [place] [phone] PCP - General Internal Medicine 02/25/13 documented as of this encounter
--- OUTSIDE RECORDS SUMMARY | 2024-12-24 10:34 | XMS_ITS | Continuity of Care Document ---
Author Organization [facility] Address [address] [place] [address] [address] [place] [phone] Phone Care Team Providers Care Centerpuncher Name Role Phone Elbert AVILES, JAMEEL, MIRZA, González Unavailable U navailable Procedures Procedure Date Office/Oupt E&M New Pt 45 Mins- CT & [place] Duplex Scan-extrem Veins; Comp- [place] & [place] Advance Directives Directive Yes / No Effective Date File Name No Information Encounters Encounter Description Practice Location Reason(s) For Visit Diagnoses Date Provider Providers Copied on Encounter [facility], [address] [place] [address] Dr [address] [address], [id number], [place] tel:[phone] [facility] No Information 4 Elbert AVILES, JAMEEL, MIRZA Claudio. [address] [address], [place], [place], [id number] , [place]. tel:[phone] Office/Oupt E&M New Pt 45 Mins- CT & [place] [facility], [address] [place] [address] Dr [address] [address], [id number], [place] tel:[phone] [facility] Chronic venous hypertension (idiopathic) with other complications of bilateral lower extremityLymphe brenda, not elsewhere classifiedType 2 diabetes mellitus without complicationsRe stless legs syndromeEssenti al (primary) hypertensionCra mp and spasmLocalized edema 4 Elbert AVILES RVT, MIRZA Claudio. [address] [facility], [address], [place], [id number] , [place]. tel:[phone] Referring Provider: Diana Hamm, [address] [facility], [facility] [address], [place], [address]. tel:[phone] [facility], [address] [facility] [address], [place], [id number], tel:[phone] [facility] [place] [facility] [place] Chronic venous hypertension (idiopathic) with other complications of bilateral lower extremity 4 Elbert AVILES RVT, MIRZA Claudio. [address] [facility], [address], [place], [id number] , [place]. tel:[phone] Referring Provider: Diana Hamm, [address] [facility], [facility] [address], [place], [address]. tel:[phone] Family History Family Member Type Diagnosis Age At Onset No Information Payers Payer name Insurance type Covered libertarian ID Krista fregoso(s) [facility] CI [id number] Social History Type Description Quantity Date Captured [...]
--- OUTSIDE RECORDS SUMMARY | 2024-12-24 10:35 | XMS_ITS | Clinical Summary ---
Author Organization [address] [facility] Address [address] [place] [address] Phone Care Team Providers Care Color Artist Name Role Phone Dionisio Romano MD Primary Care Provider [phone] Allergies No known active allergies Medications Medication Sig Dispensed Refills Start Date End Date Status methenamine hippurate (HIPREX) 1 gram tablet Take 1 tablet (1 g total) by mouth 2 (two) times a day. 08/25/2024 Active docusate sodium (COLACE) 100 mg capsule Take 1 Capsule by mouth 2 times daily for 360 days. 08/11/2024 08/06/20 25 Active furosemide (LASIX) 40 mg tablet Take 2 tablets (80 mg total) by mouth 1 (one) time each day. 07/08/2024 Active potassium chloride (Pokonza) 10 mEq packet Take 1 tablet by mouth 2 (two) times a day. Active aspirin 81 mg EC tablet Take 1 tablet (81 mg total) by mouth 1 (one) time each day. Active dulaglutide (Trulicity) 1.5 mg/0.5 mL pen injector injection Inject 1 Dose into the skin once a week. 12/14/2023 Active insulin glargine (Lantus Solostar U-100 Insulin) 100 unit/mL (3 mL) injection pen Inject 40 Units into the skin at bedtime. 03/21/2023 Active multivitamin (MULTIPLE VITAMINS ORAL) Take by mouth daily. 09/15/2015 Active pen needle, diabetic (BD Ultra-Fine Short Pen Needle) 31 gauge x 5/16 needle USE DIRECTED TO ADMINISTER INSULIN AND VICTOZA UP TO SIX TIMES DAILY 05/14/2022 Active albuterol HFA (PROAIR HFA ; PROVENTIL HFA ; VENTOLIN HFA) 90 mcg/actuation inhaler Inhale 2 Puffs into the lungs every 6 hours as needed for Cough, Wheezing or Shortness of Breath. 11/10/2021 Active fluticasone propionate (FLONASE) 50 mcg/actuation nasal spray 2 Sprays by Nasal route daily. Please spray 2 sprays in each nostrils daily for 3-4 weeks, then down to 1 spray in each nostril daily. 11/10/2021 Active blood pressure monitor kit 1 Each by Does not apply route as needed (use as needed). 07/07/2021 Active acetaminophen (TYLENOL) 500 mg tablet Take 500 mg by mouth every 6 hours as needed. Active insulin lispro (HumaLOG KwikPen Insulin) 100 unit/mL injection pen Inject into the skin. Sliding scale Active pantoprazole (PROTONIX) 40 mg EC tablet TAKE 1 TABLET BY MOUTH DAILY 90 tablet 1 09/24/2024 Active metOLazone (ZAROXOLYN) 2.5 mg tablet Take 1 tablet by mouth daily as needed for swelling 15 tablet 1 10/08/2024 Active atorvastatin (LIPITOR) 80 mg tablet Take 1 tablet (80 mg total) by mouth 1 (one) time each day. 30 tablet 2 10/08/2024 10/03/20 25 Active hydrALAZINE (APRESOLINE) 50 mg tablet Take 1 tablet (50 mg total) by mouth 3 (three) times a day. Active NIFEdipine XL (PROCARDIA XL) 30 mg 24 hr tabletIndicatio ns:Coronary artery disease involving [place] coronary artery of [place] heart without angina pectoris Take 1 tablet (30 mg total) by mouth 1 (one) time each day before breakfast. Do not crush, chew, or split. 90 each 2 12/12/2024 Active carvediloL (COREG) 12.5 mg tablet Take 1 tablet (12.5 mg total) by mouth 2 (two) times a day with meals. 180 tablet 3 12/16/2024 Active cholecalciferol (VITAMIN D-3) 50 mcg (2,000 unit) capsule TAKE 1 CAPSULE BY MOUTH DAILY 90 capsule 1 12/22/2024 Active NIFEdipine CC (ADALAT CC) 60 mg 24 hr tablet Take 1 tablet (60 mg total) by mouth 1 (one) time each day. 12/14/2023 12/12/19 25 Discontinued oxiconazole (OXISTAT) 1 % lotion Apply 1 Applicator topically 2 times daily for 7 days. 04/11/2024 12/12/19 25 Discontinued(The rapy completed) cholecalciferol (VITAMIN D-3) 50 mcg (2,000 unit) capsule Take 1 capsule (2,000 Units total) by mouth 1 (one) time each day. 12/14/2023 12/22/19 25 Discontinued carvediloL (COREG) 25 mg tablet Take 12.5 mg by mouth 2 (two) times a day with meals. 12/16/19 25 Discontinued(Exp ired) carvediloL (COREG) 12.5 mg tablet Take 1 tablet (12.5 mg total) by mouth 2 (two) times a day with meals. 12/16/19 25 Discontinued(Reo rder) Active Problems Problem Noted Date Diagnosed Date (HFpEF) heart failure with preserved ejection fr action 12/12/2024 Assessment & Plan (12/12/2024 10:28 AM EST): Patient with history of HFpEF. She has lymphedema as well. Today she is wearing her compression stockings, has mild lower extremity edema, nonpitting. She reports that her weights have been stable with no increase. No JVD. Continue on Lasix 40 mg twice daily and metolazone as needed. She had recent echocardiogram in September 2024 while hospitalized at [facility] which was reviewed. Abdominal pain 12/09/2024 Hypotension 12/09/2024 Atypical chest pain 12/19/2023 Assessment & Plan (12/12/2024 10:28 AM EST): See CAD plan. Orders: Nuclear stress test with myocardial perfusion; Future Heart failure 12/19/2023 Pulmonary edema 12/19/2023 Edema 09/25/2023 Coronary artery disease invo lving [place] coronary artery of [place] heart without angina pectoris 03/26/2023 Overview (09/04/2024): Last Assessment & Plan: Patient should continue on current medication regimen, carvedilol, atorvastatin, baby aspirin. She should adhere to a cardiac healthy diet which will include limiting sodium and fat intake. She should exercise as tolerable. We will update her lipid panel. Patient did report some fatigue while likely related to her anemia, she felt that cardiac rehab was helpful the last time she completed it, will place another order for cardiac rehab. Assessment & Plan (12/12/2024 10:28 AM EST): Patient with history of coronary artery disease [...] breakfast. Do not crush, chew, or split. Abnormal positron emission tomography (PET) scan 02/05/2023 Atypical angina 12/27/2022 Overview (09/04/2024): Last Assessment & Plan: Symptoms during recent hospitalization are suspicious to be related to gallbladder disease. Nonetheless given her risk factors I think it is reasonable to evaluate for evidence of cardiac ischemia. Plans are in motion for the patient to have a stress PET study. I would manage mild ischemia with medical therapy alone whereas if there is evidence of high risk findings, then we would consider cardiac catheterization I am anticipating that the study will either be normal or near normal. I did encourage the patient to follow through with the evaluation by general surgery as a suspect her symptoms are more related to her gallbladder. Cholecystitis 12/27/2022 Nausea 12/27/2022 Shortness of breath 12/27/2022 Vomiting 12/27/2022 Chronic kidney disease 07/07/2022 Allergic rhinitis 02/13/2017 Diabetes mellitus type 2 with neurological manif estations 02/13/2017 DJD (degenerative joint disease), cervical 02/13 DJD (degenerative joint disease), lumbar 017 Fatty liver 02/13/2017 GERD (gastroesophageal reflux disease) 7 Type 2 diabetes mellitus with cataract 7 Urinary incontinence 02/13/2017 Venous insufficiency 02/13/2017 Overview (09/04/2024): Last Assessment & Plan: Patient will continue on her current medication regiment - unable to tolerate higher levels of diuretics due to CKD. She is using compression stockings and elevating her legs without resolution of her edema. Her edema is also interfering with her ambulation. I will refer her to a lymphedema clinic to get a mechanical lymphatic compression sleeves for bilateral lower extremities. Patient is also been educated that she needs to limit her sodium. Vitamin D deficiency 02/13/2017 Depression 02/08/2017 Diabetic neuropathy 02/08/2017 Diabetic retinopathy 02/08/2017 Hyperlipidemia 02/08/2017 Overview (09/04/2024): Last Assessment & Plan: LDL 60. Although ultimately she would be treated with a moderate potency statin, there have been some difficulties with changes to her medical therapy and since her LDL is at goal I opted to keep her on her current statin. Assessment & Plan (12/12/2024 10:28 AM EST): Continues on atorvastatin as prescribed. LDL cholesterol completed in August 2024 showing a level of 50 which is demonstrating excellent control. Hypertension 02/08/2017 Overview (09/04/2024): Patient did not tolerate amlodipine for unclear reasons Last Assessment & Plan: Patient's blood pressure is slightly elevated at the appointment today. We have asked her to continue taking blood pressure measurements at home and to report to the office in 2 weeks what her values are. We discussed that normalizing her blood pressure is one of the primary preventative strategies of her diastolic heart failure. Assessment & Plan (12/12/2024 10:28 AM EST): With history of hypertension, reporting symptomatic lower [...] in the morning. Will continue to monitor. Bunion 02/25/2014 Cataract 02/07/2014 Degenerative joint disease (DJD) of hip 12/12/19 14 Encounters Date Type Department Care Team Description 12/16/2024 9:00 AM EST Office Visit Internal Medicine [address] [phone] Dionisio Romano MD Routine medical exam (Primary Dx); 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); Primary hypertension; Stage 3b chronic kidney disease (CMS/HCC); Coronary artery disease involving [place] coronary artery of [place] heart without angina pectoris 12/12/2024 8:10 AM EST Office Visit [facility] Cardiology [facility] [address] [facility] [address] [place] [address] Christiane Sanders NP Coronary artery disease involving [place] coronary artery of [place] heart without angina pectoris (Primary Dx); Atypical chest pain; Chronic heart failure with preserved ejection fraction (CMS/HCC); Hypertension, unspecified type; Hyperlipidemia, unspecified hyperlipidemia type 11/26/2024 Telephone Internal Medicine - [address] [phone] Dionisio Romano MD [facility] call 11/24/2024 Telephone [facility] [address] [place] [address] Michael Torrez MD Med Dose Change 11/13/2024 7:47 AM EST - 11/13/2024 11:59 PM EST Hospital Encounter [facility] [address] [place] [phone] Category 3 mammography result with short follow-up interval suggested for probably benign finding Discharge Disposition: Home or Self Care 11/13/2024 Telephone Internal Medicine - [place] [address] [phone] Bernice Elizondo [place] 10/31/2024 10:00 AM EST Office Visit Internal Medicine [facility] [address] [place] [address] Dionisio Romano MD Fungemia (Primary Dx); 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); S/P cholecystectomy 10/15/2024 Telephone Internal Medicine [facility] [address] [facility] [address] [place] [address] Dionisio Romano MD Hypertension 10/13/2024 Telephone [facility] Cardiology [facility] [address] [place] [address] [address] [place] [address] Michael Torrez MD traige call 10/13/2024 Telephone Internal Medicine [facility] [address] [facility] [address] [facility] [address] [place] [address] Dionisio Romano MD Hospital Follow-up 10/02/2024 Telephone Internal Medicine [facility] [address] [facility] [address] [place] [address] Dionisio Romano MD 09/26/2024 Telephone [facility] Cardiology [address] [place] [address] Jesica Fernandez MA Cardiac Rehab (Prior Authorization/Cardiac Rehab appointment scheduled) 09/25/2024 Telephone Internal [facility] [address] [facility] [address] [place] [address] Dionisio Romano MD TRIAGE from Last 3 Months Immunizations Name Administration Dates Next Due Influenza trivalent, 0.5mL (Fluad) 65yo and olde r 08/18/2020,08/05/2020 Influenza trivalent, 0.5mL, preservative free (Fluarix; FluLaval; Fluzone) ages 6mo and older (Afluria) 3 years and older 09/24/2015 Pfizer SARS-CoV-2 COVID-19, mRNA, LNP-S, preservative free 09/06/2021,02/18/2021 Pneumococcal conjugate 13 va lent (Prevnar 13, PCV13) 2mo and older 01/02/2017 Pneumococcal polysaccharide 23 valent (Pneumovax 23) 2yo and older 02/05/2018 Tdap Tetanus diptheria acell ular pertussis (Boostrix; Adacel) 7yo and older 06/21/2023 Zoster Live 09/19/2013,11/05/2012 Zoster recombinant (Shingrix) 19yo and older 08/2020 Surgical History Surgery Date Site/Laterality Comments OTHER SURGICAL HISTORY PROCEDURE: HISTORICAL TOTAL HYSTERECTOMY W/O BSO; COMMENT: for cervical cancer BUNIONECTOMY Bilateral PROCEDURE: BUNION SURGERY, SIMPLE REMOVAL ROTATOR CUFF REPAIR -2013 Right PROCEDURE: HISTORICAL ROTATOR CUFF REPAIR APPENDECTOMY PROCEDURE: DC APPENDECTOMY CATARACT EXTRACTION PROCEDURE: HISTORICAL CATARACT REMOVAL OTHER SURGICAL HISTORY PROCEDURE: ---- OTHER ----; COMMENT: venous ligation LAPAROSCOPIC GASTRIC BANDING PROCEDURE: LAP ADJUSTABLE GASTRIC BAND CORONARY ARTERY BYPASS GRAFT Medical History Medical History Date Comments Diabetic neuropathy ([facility]) 02/08/2017 DX :Diabetic neuropathy ([facility]) Hyperlipidemia 02/08/2017 DX:Hyperlipidemi a Hypertension 02/08/2017 DX:Hypertension Diabetic retinopathy ([facility]) 02/08/2017 D X:Diabetic retinopathy ([facility]) Depression 02/08/2017 DX:Depression History of adjustable gastric banding 02/13/2017 DX:History of adjustable gastric banding Diabetes mellitus type 2 wit h neurological manifestations ([facility]) 02/13/2017 DX:Diabetes ehsan itus type 2 with neurological manifestations (HCC) Type 2 diabetes mellitus wit h eye manifestations ([facility]) 02/13/2017 DX:Type 2 diabetes mellitus with eye manifestations (HCC) Type 2 diabetes mellitus wit h cataract ([facility]) 02/13/2017 DX:Type 2 diabetes mellitus with cataract ([facility]) Allergic rhinitis 02/13/2017 DX:Allergic rh initis GERD (gastroesophageal reflu x disease) 02/13/2017 DX:GERD (gastroesophageal re flux disease) SCARLET (obstructive sleep apnea) 02/13/2017 DX :SCARLET (obstructive sleep apnea) Urinary incontinence 02/13/2017 DX:Urinary incontinence Vitamin D deficiency 02/13/2017 DX:Vitamin D deficiency Venous insufficiency 02/13/2017 DX:Venous i nsufficiency DJD (degenerative joint dise ase), cervical 02/13/2017 DX:DJD (degenerative joint d isease), cervical DJD (degenerative joint dise ase), lumbar 02/13/2017 DX:DJD (degenerative joint d isease), lumbar Fatty liver 02/13/2017 DX:Fatty liver Bunion 02/25/2014 DX:Bunion Cataract 02/07/2014 DX:Cataract Degenerative joint disease ( DJD) of hip 12/12/2013 DX:Degenerative joint diseas e (DJD) of hip Asthma DX:Asthma Insulin dependent type 2 destini betes mellitus (CMS/HCC) DX:Insulin dependent type 2 diabetes mellitus (HCC) RUQ pain DX:RUQ pain Anemia Diabetes (CMS/HCC) Family History Medical History Relation Name Comments Coronary artery disease Father Arthritis Mother CAD, pulmonary embolus Relation Name Status Comments Father Mother Social History Tobacco Use Types Packs/Day Years [...] file Not on file Not on file Obstetrics History Para Term AB IAB SAB Ectopic Multiple Livin g Live Births 3 Last Filed Vital Signs Vital Sign Reading Time Taken Comments Blood Pressure 128/80 12/16/2024 9:13 AM EST Pulse 58 12/16/2024 9:12 AM EST Temperature 36.2 ??C (97.1 ??F) 12/16/2024 9:12 AM ES T Respiratory Rate - - Oxygen Saturation 98% 12/16/2024 9:12 AM EST Inhaled Oxygen Concentration - - Weight 93 kg (205 lb) 12/16/2024 9:12 AM EST Height 167.6 cm (5' 6 ) 12/12/2024 8:13 AM EST Body Mass Index 33.09 12/12/2024 8:13 AM EST Plan of Treatment Upcoming Encounters Date Type Department Care Team (Late st Contact Info) Description 12/25/2024 8:00 AM EST Ancillary Procedure [facility] [address] [place] [address] 01/08/2025 10:30 AM EST Office Visit [facility] [address] [place] [phone] Michael Torrez MD [address] [place] [address] [address] [place] [address] 04/10/2025 11:30 AM EDT Office Visit Internal Medicine - [place] [address] [facility] [address] [place] [phone] Dionisio Romano MD [address] [facility] [address] [place] [address] Health Maintenance Due Date Last Done Comments Zoster Vaccines (3 of 3) 01/23/2020 020, 09/19/2013, 11/05/2012 Depression Screening 10/28/2022 Falls Risk Assessment 10/28/2022 Social Influencers of Health Screening 10/28/2022 Diabetes: Blood Sugar Control Test (HGBA1C) 10/29/2022 06/01/2021 Medicare Annual Wellness Visit 01/30/2023 01/30/2022 Diabetes: Annual Urine Albumin-Creatinine Ratio (uACR) 06/21/2024 06/21/2023 COVID-19 Vaccine ( season) 2024 08/06/2023, 06/23/2022, 09/06/2021, Additional history exists Diabetes: Annual Foot Exam 10/09/2024 10/09/2023 Diabetes: Annual Retina Eye Exam 05/12/2025 05/12/2024 Diabetes: Annual GFR (Glomerular Filtration Rate) 12/16/2025 12/16/2024, 03/05/2024 Hypertension/CHF/CAD Annual BMP Blood Test 12/16/2025 12/16/2024, 03/05/2024 Breast Cancer Screening 11/13/2026 11/13/20 24, 05/07/2024, 11/05/2023, Additional history exists Cholesterol Screening (Lipid Panel) 09/08/2029 09/08/2024, 06/01/2021 Osteoporosis Screening (Bone Density Screening) 12/05/2032 12/05/2022, 01/28/2020 DTaP,Tdap,and Td Vaccines (2 - Td or Tdap) 06/21/2033 06/21/2023 Colorectal Cancer Screening: Colonoscopy 04/16/2034 04/16/2024 Pneumococcal Vaccine: 65+ Years Completed 02/05/2018, 01/02/2017 Hepatitis C Screening Completed 02/27/2023 Influenza Vaccine Completed 06/30/2024, , 06/23/2022, Additional history exists RSV Immunization Patients 60+ Years Old Completed 06/30/2024 HIB Vaccines Aged Out No longer eligi ble based on patient's age to complete this topic HPV Vaccines Aged Out No longer eligi ble based on patient's age to complete this topic Hepatitis A Vaccines Aged Out No long er eligible based on patient's age to complete this topic Hepatitis B Vaccines Aged Out No long er eligible based on patient's age to complete this topic IPV Vaccines Aged Out No longer eligi ble based on patient's age to complete this topic MMR Vaccines Aged Out No longer eligi ble based on patient's age to complete this topic Meningococcal ACWY Vaccine Aged Out N o longer eligible based on patient's age to complete this topic RSV Immunization Patients Under 20 months Aged Out No longer eligible based on patient's age to complete this topic Varicella Vaccines Aged Out No longer eligible based on patient's age to complete this topic Procedures Procedure Name Priority Date/Time Associated Diagnosis Comments BASIC METABOLIC PANEL Routine 12/16/2024 9:48 AM EST 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) Primary hypertension MG MAMMO DIGITAL DIAGNOSTIC W ISAAC BILAT Routine 11/13/2024 8:23 AM EST Category 3 mammography result with short follow-up interval suggested for probably benign finding EXTERNAL ECHO Routine 10/03/2024 8:48 AM EST EXTERNAL ECHO Routine 10/02/2024 8:50 AM EST HM DIABETES EYE EXAM Routine 05/12/2024 COLONOSCOPY Routine 04/16/2024 DIABETES FOOT EXAM Routine 10/09/2023 URINE ALBUMIN CREATININE RATIO Routine 06/21/2023 HEPATITIS C SCREENING Routine 02/27/2023 [facility] DEXA AXIAL SKELETON Routine 12/05/2022 5:38 PM EST Encounter for screening for osteoporosis HEMOGLOBIN A1C Routine 06/01/2021 LIPID PANEL Routine 06/01/2021 from Last 3 Months or Most Recently Relevant to Health Maintenance Results * (ABNORMAL) Basic metabolic panel (12/16/2024 9:48 AM EST) [facility] Sodium 137 133 - 145 mmol/L LAB CHEMISTRY METHOD 12/16/2024 2:56 PM [facility] Potassium 4.1 3.5 - 5.5 mmol/L LAB CHEMISTRY METHOD 12/16/2024 2:56 PM [facility] Chloride 104 96 - 110 mmol/L LAB CHEMISTRY METHOD 12/16/2024 2:56 PM [facility] CO2 29 21 - 32 mmol/L LAB CHEMISTRY METHOD 12/16/2024 2:56 PM [facility] Anion Gap 4 3 - 11 LAB CHEMISTRY METHOD 12/16/2024 2:56 PM [facility] Glucose 223(H) 70 - 100 mg/dL LAB CHEMISTRY METHOD 12/16/2024 2:56 PM [facility] BUN 36(H) 5 - 25 mg/dL LAB CHEMISTRY METHOD 12/16/2024 2:56 PM [facility] Creatinine 2.33(H) 0.50 - 1.10 mg/dL LAB CHEMISTRY METHOD 12/16/2024 2:56 PM [facility] eGFR 22(L) >=60 mL/min/1. 73m2 LAB CHEMISTRY METHOD 12/16/2024 2:56 PM [facility] Comment:Calculation based on the??Chronic Kidney Disease Epidemiology Collaboration (CKD-EPI) equation refit??without adjustment for race. BUN/Creatinine Ratio 15.5 LAB CHEMISTRY METHOD 12/16/2024 2:56 PM [facility] Calcium 9.2 8.5 - 10.5 mg/dL LAB CHEMISTRY METHOD 12/16/2024 2:56 PM EST [facility] Blood Venous blood specimen / Unknown Venipuncture / Unknown 12/16/2024 9:48 AM EST 12/16/2024 9:48 AM EST Dionisio Romano MD LAB BLOOD ORDERABLES [facility] [address] [place] [address], [place] [phone] * MG Mammo Digital Diagnostic w Isaac bilat (11/13/2024 8:23 AM EST) Anatomical Region Laterality Modality Breast Bilateral Mammography 11/13/2024 8:11 AM EST Impressions 11/13/2024 8:21 AM EST Benign. BI-RADS CATEGORY: 2 - BENIGN RECOMMENDATION: Screening bilateral mammogram is recommended in 1 year. Mammo Location: [facility], [address] [place] [id number] -------- FINAL REPORT -------- Dictated By: Daniel Gregory Dictated Date: 11/13/2024 08:11 ET Assigned Physician: Daniel Gregory Reviewed and Electronically Signed By: Daniel Gregory Signed Date: 11/13/2024 08:21 ET Workstation ID: [id number] Transcribed By: Self Edit Transcribed Date: 11/13/2024 08:11 ET Narrative 11/13/2024 8:21 AM EST CLINICAL: The patient is a 73 years Female presenting for follow-up of an asymmetry at the posterior 1 to 2:00 position of the right breast and for annual mammography of the left breast. COMPARISON: Most recently 05/07/2024 and most remotely 09/17/2020. ?? TECHNIQUE: Full-field digital mammography of the breasts bilaterally consisting of tomosynthesis in MLO and CC projection is performed in the 31[employer]he 2000-D unit. ??Computer aided detection utilizing the iCAD system was utilized. FINDINGS: The breasts are again seen to be composed of a combination of fatty and fibroglandular elements. ??The previously seen asymmetry in the upper inner quadrant of the right breast have completely resolved. ??Scattered bilateral punctate calcifications are without suspicious interval change. TISSUE DENSITY: There are scattered areas of fibroglandular density. (BI-RADS category B) Procedure Note Daniel Gregory MD - 11/13/2024 CLINICAL: The patient is a 73 years Female presenting for follow-up of anasymmetry at the posterior 1 to 2:00 position of the right breast and forannual mammography of the left breast. COMPARISON: Most recently 05/07/2024 and most remotely 09/17/2020. TECHNIQUE: Full-field digital mammography of the breasts bilaterallyconsisting of tomosynthesis in MLO and CC projection is performed in theOxigene Senographe 2000-D unit. Computer aided detection utilizing the Boca Researchystem was utilized. FINDINGS: The breasts are again seen to be composed of a combination offatty and fibroglandular elements. The previously seen asymmetry in theupper inner quadrant of the right breast have completely resolved.Scattered bilateral punctate calcifications are without suspiciousinterval change. TISSUE DENSITY: There are scattered areas of fibroglandular density.(BI-RADS category B) IMPRESSION: Benign. BI-RADS CATEGORY: 2 - BENIGN RECOMMENDATION: Screening bilateral mammogram is recommended in 1 year. Mammo Location: [facility], [facility], [address] [place] [id number] -------- FINAL REPORT -------- Dictated By: Daniel Gregory Dictated Date: 11/13/2024 08:11 ET Assigned Physician: Daniel Gregory Reviewed and Electronically Signed By: Daniel Gregory Signed Date: 11/13/2024 08:21 ET Workstation ID: [id number] Transcribed By: Self Edit Transcribed Date: 11/13/2024 08:11 ET Dionisio Romano MD IMG BI PROCEDURES * External Echo (10/03/2024 8:48 AM EST) Anatomical Region Laterality Modality Ultrasound Historical Provider CV ECHO PROCEDURE S * External Echo (10/02/2024 8:50 AM EST) Anatomical Region Laterality Modality Ultrasound Historical Provider CV ECHO PROCEDURE S * Diabetes Eye Exam (05/12/2024) [facility] Diabetes: Annual Retina Eye Exam abstracted Historical Provider [facility] * Colonoscopy (04/16/2024) [facility] Colonoscopy no interpretation , abstracted Anatomical Region Laterality Modality Other Historical Provider [facility] * Diabetes Foot Exam (10/09/2023) [facility] Diabetes: Annual Foot Exam abstracted [facility] Provider [facility] * Urine Albumin Creatinine Ratio (06/21/2023) [facility] Urine Albumin Creatinine Ratio abstracted [facility] Provider [facility] * Hepatitis C Screening (02/27/2023) [facility] Hepatitis C Screening abstracted Historical Provider [facility] * [facility] DEXA AXIAL SKELETON (12/05/2022 5:38 PM EST) Anatomical Region Laterality Modality Mammography 12/05/2022 11:1 5 AM EST Narrative 12/05/2022 5:38 PM EST [facility] Diagnostic Imaging Department [address] [place] [address] [id number] Patient: ??TALIA WATTS ?/Age/Sex: 1950 - 71 - F Unit#: ??[id number] ? Location/Status: ??SPDIMAM/REG CLI ? Mnemonic/Ordering Site: ??MAMDEXAAX/SPMAM Ordering Physician: ??DIONISIO ROMANO MD [facility] Dexa Axial Skeleton - 12/05/22 - History: Low estrogen state due to menopause. On omeprazole. Comparison: 08/10/14 Findings: Bone densitometry is performed utilizing dual energy x-ray absorptiometry (DXA) in the [employer] unit. The lumbar spine and proximal femora are evaluated in the AP projection. The FRAX questionaire was completed. The results indicate normal bone mineral density, with a left femoral neck T- score -0.7. The Z score is -0.7, indicating bone mineral density within normal limits relative to age. There has been a small, statistically significant decrease in bone mineral density in the spine since the previous study. ??The detailed DEXA report will be mailed to the referring physician's office. DualFemur FRAX: 10-year Probability of Fracture: Major Osteoporotic 2.5 percent Hip 0.1 percent. IMPRESSION: Normal bone mineral density. [id number] Dictating Physician: ??LATRICE SIMS MD Electronically Signed by: ??LATRICE SIMS MD Dic Date/Time: ??12/05/221736 Sign date/Time: ??12/05/221737 Procedure Note Latrice Sims MD - 12/21/2023 [facility] Diagnostic Imaging Department [address] [place] [id number] Patient: TALIA WATTS./Age/Sex: 1950 - 71 - F Unit#: [id number] Location/Status: SPDIMAM/REG CLI Mnemonic[facility] Ordering Physician: DIONISIO ROMANO MD [facility] Dexa Axial Skeleton - 12/05/22 - History: Low estrogen state due to menopause. On omeprazole. Comparison: 08/10/14 Findings: Bone densitometry is performed utilizing dual energy x-ray absorptiometry(DXA) in the [employer] unit. The lumbar spine and proximal femora areevaluated in the AP projection. The FRAX questionaire was completed. The results indicate normal bone mineral density, with a left femoral neckT- score -0.7. The Z score is -0.7, indicating bone mineral density withinnormal limits relative to age. There has been a small, statisticallysignificant decrease in bone mineral density in the spine since the previous study.The detailed DEXA report will be mailed to the referring physician's office. DualFemur FRAX: 10-year Probability of Fracture: Major Osteoporotic 2.5percent Hip 0.1 percent. IMPRESSION: Normal bone mineral density. [id number] Dictating Physician: LATRICE SIMS MD Electronically Signed by: LATRICE SIMS MD Dic Date/Time: 12/05/221736 Sign date/Time: 12/05/221737 Dionisio Romano MD IMG BI PROCEDURES * (ABNORMAL) Hemoglobin A1c (06/01/2021) Pathologist [facility] Hemoglobin A1C 9.1(A) 6.5 % Blood Venous blood specimen / Unknown Historical Provider LAB BLOOD ORDERAB LES * Lipid panel (06/01/2021) Pathologist [facility] LDL/HDL Ratio 3 0 - 4 Triglycerides 125 0 - 150 mg/dL Cholesterol 142 0 - 200 mg/dL HDL 57 40 mg/dL LDL Cholesterol 60 0 - 100 mg/dL Blood Venous blood specimen / Unknown Historical Provider LAB BLOOD ORDERAB LES from Last 3 Months or Most Recently Relevant to Health Maintenance Care Teams Color Artist Relationship Specialty Start Date End Date Dionisio Romano MD [address] [phone] PCP - General Internal Medicine 02/25/13
--- OUTSIDE RECORDS SUMMARY | 2024-12-24 10:35 | XMS_ITS | Data Portability ---
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 Evaluation in the field was performed by my stick feeder colleague, as noted above, I provided real-time [...] SNOMED-CT Code Diagnosis ICD10 Code Diagnosis Note [id number] Brina Hurd MD [facility] - [address] [phone] 10/02/2024 19:18:11 10/02/2024 23:20:15 Postoperative visit [id number] Z48.89 Dyspnea [id number] R06.00 Health Concerns Section Related Observation LastModified by Organization Detai ls LastModified Time None Recorded Concern Status LastModified by Organization Details LastModified Time None Recorded Advance Directives Directive None Recorded Payers Encounter Date Sequence Insurance Name Policy Number Policy Rbaun Covered Member ID Braun Member ID Guarantor Name 10/02/2024 1 [facility] - DOS ON OR AFTER 2023 - DUAL ELIGIBLE - LONG TERM OPTIONS AND ONE CARE (MEDICARE REPLACEMENT/ADV ANTAGE - HMO) Milla Guzman [id number] Milla Guzman Notes Date Note Type Note [...] 2, Cholecystectomy Comments: gallbladder removal on Sunday. Arona sob since d/c from hospital yesterday. 02 [...] ..................... ..................... ..................... ..................... ..................... ..................... ............... 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 Patient was found [...] she recently had her gallbladder removed at [facility] on 09/30, patient reports that the swelling, [...] Patient baseline vital signs obtained as noted. [facility] was consulted and advised that the patient should go to the hospital to R/O a pulmonary embolism. Patient agreed to go to the hospital and [facility] called 911 for patient. Patient report given to transporting ambulance without incident. ..................... ..................... ..................... ..................... ..................... ..................... ............... [facility] Consulted: Brina Hurd ..................... ..................... ..................... ..................... ..................... ..................... ............... Disposition: Fulfilled Brina Hurd MD [address] [facility],[address], [place], [address], [facility] [employer] [facility] 10/02/2024 19:57:17 OBGyn Episode No OBEpisode recorded.
--- OUTSIDE RECORDS SUMMARY | 2024-12-24 10:35 | XMS_ITS | Continuity of Care Document ---
Author Organization [facility] ter Address [address] [place] [address]- Care Team Providers Care Workers Compensation Coordinator Name Role Phone Rosalina AVILES, Diana Worley Primary Care Physician [phone] Encounter [facility] [id number] Date(s): 11/23/24 - 11/23/[address] [address]- Encounter Diagnosis Abdominal pain(Final) - 11/23/24 Discharge Disposition: A-D/C Home Attending Physician: Jung Isbell DO Admitting Physician: Jung Isbell DO Referring Physician: Not on Staff, Referring MD Encounter Type: Disch ES Allergies, Adverse Reactions, Alerts No Known Allergies Immunizations Given and Recorded Vaccine Date Status Refusal Reason influenza virus vaccine, inactivated 06/23/22 Anthony rded influenza virus vaccine, inactivated 07/15/21 Anthony rded influenza virus vaccine, inactivated 08/18/20 Anthony rded influenza virus vaccine, inactivated 08/05/20 Anthony rded influenza virus vaccine, inactivated 09/28/18 Give n influenza virus vaccine, inactivated 09/24/15 Anthony rded SARS-CoV-2 mRNA (jinffur-wthh-rqujk) vax 06/23/22 Recorded SARS-CoV-2 (COVID-19) mRNA BNT-162b2 [...] 3:02:00 PM EST, Route to Pharmacy Electronically, [id number], Partial fill upon patient request if the [...] 3:13:00 PM EST, Route to Pharmacy Electronically, [facility], Partial fill upon patient request [...] Refills, Maintenance, 11/24/23 3:15:00 PM EST, Tablet, [facility], Partial fill upon patient request [...] 11/24/23 3:13:00 PM EST,Route to Pharmacy Electronically, [facility], Partial fill upon patient request [...] obesity (BMI 35.0-39.9) with comorbidity Confirmed Active Results Radiology Reports * Exam Date Time Procedure Performing Provider Status 11/23/24 7:[address] Abd/Pelvis W/ IV Contrast Only Susana Metzger; Auth (Verified) Notes: (CT Abd/Pelvis W/ IV Contrast Only) Reason For Exam: RUQ abdominal pain;Other: RESULT: CT Abd/Pelvis W/ IV Contrast Only CT Abd/Pelvis W/ IV Contrast Only Hx of Present Illness: Pt c o weakness and dizziness that started this morning upon wakening. States she took her blood pressure and found it to be 95 45. Endorsing some nausea. Having chest discomfort and upper abdominal pain.; Reason: Other:; RUQ abdominal pain; Clinical Question(s): Abscess; Order Comment: TECHNIQUE: Spiral CT through the abdomen and pelvis with IV contrast formatted in 3 planes. 100 cc of Isovue 300 was administered intravenously. This study was performed without oral contrast. Weight-based protocol using automatic tube modulation was used to optimize exposure parameters. CTDIvol Body: 20.30 mGy, DLP Body: 1050 mGy*cm. COMPARISON: Multiple recent CT 10/25/2024. 10/22/2024 and 10/04/2024. FINDINGS: Change Management Director View Findings, Lines and Tubes: Gastric band. Median sternotomy wires. Visualized Chest: Trace right pleural effusion is significantly improved. Diaphragm: Normal. Liver: Normal. Gallbladder: Cholecystectomy. Decreasing gas fluid collection in the gallbladder fossa currently measuring 2.3 x 1.9 cm decreased from 4.6 x 2.5 cm. Bile ducts: No biliary ductal dilation. Spleen: Normal. Pancreas: Moderate atrophy. No mass or ductal dilation. Adrenal glands: Normal. Kidneys and ureters: Mild renal atrophy. No hydronephrosis, stones, or noncontrast evidence of suspicious masses. Bladder: Normal. Reproductive organs: Hysterectomy. Stomach, small bowel, and large bowel: There is no evidence for bowel obstruction. There is mild retention of stool. No diverticulitis or colitis. Appendix: Not seen, but no evidence of appendicitis. Peritoneum and retroperitoneum: No ascites or pneumoperitoneum. No omental or mesenteric lesions. Lymph nodes: No enlarged lymph nodes. Blood vessels: Mild vascular calcifications but no aneurysm. Abdominal and pelvic wall: Small fat-containing umbilical hernia. Mild to moderate anasarca slightly worse. Bones: No acute abnormality. Spine degenerative changes. IMPRESSION: Previously reported gas/fluid collection in the gallbladder fossa has decreased in size by 50% and is small just under an inch wide. Trace right pleural effusion decreased by more than 50%. Mild constipation is noted. WSN: [id number] Ordering Physician: Eveline Mora Dictated By: Micheal Santiago MD Dictated Date/Time: 11/23/24 7:41 pm Reviewed By: Micheal Santiago MD Signed By: Micheal Santiago MD Signed Date/Time: 11/23/24 7:41 pm Transcribed By: SADIQ Transcribed Date/Time: 11/23/24 7:37 pm * Exam Date Time Procedure Performing Provider Status 11/23/24 4:35 PM Chest 2 Views Frontal and Lat Anders Adams; Marlin (Verified) Notes: (Chest 2 Views Frontal and Lat) Reason For Exam: Chest Pain;Other: RESULT: Chest 2 Views Frontal and Lat Examination: Chest performed on 11/23/2024. History: Weakness and dizziness. Chest discomfort. Findings: Frontal and lateral views of the chest are compared to a prior study dated 10/20/2024. Sternotomy wires are intact. The cardiac silhouette is at the upper limits of normal for size. Pulmonary vascular congestion is seen. The osseous structures are unremarkable. A gastric band is poorly visualized. IMPRESSION: Pulmonary vascular congestion. WSN: [id number] Ordering Physician: Christiano Holbrook Dictated By: Hailee Guidry MD Dictated Date/Time: 11/23/24 4:45 pm Reviewed By: Hailee Guidry MD Signed By: Hailee Guidry MD Signed Date/Time: 11/23/24 4:45 pm Transcribed By: SADIQ Transcribed Date/Time: 11/23/24 4:44 pm Vital Signs Most recent to oldest [Reference Range]: 1 2 3 Height 168 cm (11/23/24 8:29 PM) 168 cm (11/23/24 2:59 PM) 168 cm (11/23/24 2:22 PM) Weight 99 kg (11/23/24 8:29 PM) 99 kg (11/23/24 2:59 PM) 99 kg (11/23/24 2:22 PM) Oxygen Saturation [94-100 %] 96 % (11/23/24 8:29 PM) 100 % (11/23/24 5:21 PM) 100 % (11/23/24 3:20 PM) Pulse Rate [55-90 bpm] 61 bpm (11/23/24 8:29 PM) 55 bpm (11/23/24 5:21 PM) 53 bpm *L* (11/23/24 3:20 PM) Body Mass Index [18.5-24.99 kg/m2] 35.08 kg/m2 *>HHI* (11/23/24 8:29 PM) 35.08 kg/m2 *>HHI* (11/23/24 2:22 PM) Blood Pressure [90-138/55-84 mm Hg] 154/56mm Hg *H* (11/23/24 8:29 PM) 125/56mm Hg (11/23/24 5:21 PM) 124/54mm Hg (11/23/24 3:20 PM) Respiratory Rate [16-30 br/min] 16 br/min (11/23/24 8:29 PM) 14 br/min *L* (11/23/24 5:21 PM) 18 br/min (11/23/24 3:20 PM) Temperature [96.8-100.4 DegF] 98.3 DegF (11/23/24 8:29 PM) 97.6 DegF (11/23/24 5:21 PM) 97.6 DegF (11/23/24 3:20 PM) Mode of Delivery (Oxygen) Room air (11/23/24 8:29 PM) Room air (11/23/24 5:21 PM) Room air (11/23/24 3:20 PM) Blood pressure sites Arm, right (11/23/24 8:29 PM) Arm, left (11/23/24 5:21 PM) Arm, left (11/23/24 3:20 PM) Temperature Route Oral (11/23/24 8:29 PM) Oral (11/23/24 5:21 PM) Oral (11/23/24 3:20 PM) Dry Weight 99 kg (11/23/24 8:29 PM) 99 kg (11/23/24 2:59 PM) 99 kg (11/23/24 2:22 PM) Weight Obtained Via Patient/family state d (11/23/24 2:22 PM) Dry Weight Obtained Via Patient/family s tated (11/23/24 2:22 PM) Social History Social History Type Response Smoking Status Never smoker entered on: 09/14/15 Sex Sex Representation Female (finding) Patient Care team information Care Team Personnel Name: Anuradha Flores RN Position: S RN Member Role: Primary Care Nurse Name: Diana Romano MD Position: Reference Physician Member Role: PCP Address: [address] [place] [address], [facility] [address] Telecom: Name: Nadya Harrison RN Position: [...] Role: Lifetime Consulting Physician Address: [address] [facility], [address] Telecom: Name: Ash Soto MD Position: [facility] Renal MD Member Role: Lifetime Consulting Physician Address: [address] [facility] [address] Telecom: Name: Slick Armstrong RN Position: S RN Member Role: Primary Care Nurse Name: Araceli Pinto RN Position: S RN Member Role: Primary Care Nurse Name: Karen Resendez RN Position: S RN Member Role: Primary Care Nurse Name: Alber Hernández MD Position: [facility] Renal MD Member Role: Lifetime Consulting Physician Address: [address] [facility] [address] Telecom: Name: Kavitha Choudhary RN Position: S RN Member Role: Primary Care Nurse Name: Sudha Kee RN Position: S RN Member Role: Primary Care Nurse Name: Tita Sims RN Position: S RN Member Role: Primary Care Nurse Name: Krystyna Lin RN Position: S RN Member Role: Primary Care Nurse Care Team Related Persons Name: NBA COCHRANJOVANJULIA Name: AMILCAR JOHNSON Insurance Providers Guarantor name: ALEXY WATTS Health Plan Information #: 1 Payer: NA Member Number: [id number] Policy Number: NA Group Number: [facility] [place] Information #: 2 Payer: NA Member Number: [id number] Policy Number: NA Group Number: NA
--- OUTSIDE RECORDS SUMMARY | 2024-12-24 10:35 | XMS_ITS | Continuity of Care Document ---
Author Organization [facility]. If a dditional information is needed, contact Health Information Management at [phone] Address [address] [place] [address] Phone Care Team Providers Care Professor Of Art History Name Role Phone Unavailable Unavailable Unavailable Unavailable Unavailable Unavailable Unavailable Unavailable Unavailable Unavailable Unavailable Unavailable Unavailable Unavailable Unavailable Unavailable Unavailable Unavailable Problems Disorder of toe Onset:16-Mar-2024 Talha Ackerman APRN Chest pain Onset:11-Jan-2015 Allergies and Adverse Reactions No Known Drug Intolerances(A llergy) Onset: 11-Jan-2015 Reaction:UNKNOWN Social History Smoking Status Never smoked tobacco Recorded: 16-Mar-2024 Vital Signs 16-Mar-2024 13:32 TEMP KAPDFUNIAQ88.7f Comments:97 .7 Pulse70 Comments:70 Respiratory Rate16 Comments:16 O2 SAT99% Comments:99 BP Rkchhpww447st[Hg] Comments:16 4 BP Wrhpmcukz45xl[Hg] Comments:74 Height5.5[ft_us] Comments:5 Zhemot00.455kg Comments:95.455 16-Mar-2024 13:32 AJD13jd/m2 Comments:34.0 Encounters Emergency Encounter Reason:RIGHT FOOT TOE PAIN Encounter Diagnosis:Exposure to other specified factors, initial encounter,Blister (nonthermal), right great toe, initial encounter 16-Mar-2024 13:[id number] 13:50 Deepika Feng MD (Attending) [facility] Discharge Disposition:Discharged to home or self care (routine discharge) ? ? ? Talha Ackerman APRN-16-Mar-2024 [facility] ([facility])EMERGENCY PROVIDER REPORTREPORT#:[id number] REPORT STATUS: SignedDATE:03/16/24 TIME: 1333PATIENT: TALIA WATTS UNIT #: [id number]#: [id number] ROOM/BED:AGE: 73 SEX: F PCP PHYS: Undefined ProviderSERVICE AUTHOR: TINO HIGHTOWER* ALL edits or amendments must be made on the electronic/computer document *TINO HIGHTOWER 03/16/24 1333:HPI-General IllnessGeneralInitial Greet Date/Time 03/16/24 1310PresentationChief Complaint __ (Right great toe blister)Free Text HPI NotesFree Text HPI Aqwgo20-wysl-yzi female presents emergency department today for reports of a blisterunderneath her right great toe. Patient reports she has diabetes has been usingmedihoney reports she is from [place] it has not seen her primary care [...] seen by your primary care physician (PCP) orrurn for re-evaluation to the Emergency Department.WHAT DO [...] the closest emergencydepartment or a call to [facility].PETR ARTEAGA 03/17/24 0955:Patient Discharge DepartureDischarge/Care PlanReferralsProvider Referral: NO PRIMARY OR FAMILY PHYSICIANSupervising Physician Note MidLv Saw Pt AloneI have reviewed the PA/LICENSED FUNERAL DIRECTOR's note and plan of care. I was [...] patient's visit. at 1401 at 0957RPT #: [id number] OF REPORT Plan of Treatment Based on [...]
== END 2024-12-24 10:24 | disposition home or self-care (01) ==
PROVIDERS: PCP Internal Medicine; Visit Provider Internal Medicine Hypertension Specialist
DX: E11.22 Type 2 diabetes mellitus with diabetic chronic kidney disease (principal); N18.4 Chronic kidney disease, stage 4 (severe); D63.1 Anemia in chronic kidney disease; Z79.4 Long term (current) use of insulin; N40.1 Benign prostatic hyperplasia with lower urinary tract symptoms
CPT/HCPCS: 99214

== ENCOUNTER → 2024-12-24 09:47 | Outpatient (BNVA) | payer OTHER, SELFPAY | PROVIDERS: PCP Internal Medicine; Visit Provider Internal Medicine Hypertension Specialist | DX: E11.22 Type 2 diabetes mellitus with diabetic chronic kidney disease (principal); I13.0 Hypertensive heart and chronic kidney disease with heart failure and stage 1 through stage 4 chronic kidney disease, or unspecified chronic kidney disease; I50.9 Heart failure, unspecified; N18.4 Chronic kidney disease, stage 4 (severe); D63.1 Anemia in chronic kidney disease; N25.81 Secondary hyperparathyroidism of renal origin; Z79.4 Long term (current) use of insulin | CPT/HCPCS: 96372; 99212; Q5106 ==

== ENCOUNTER 2025-01-14 09:32 | Outpatient (AMB) | payer OTHER, SELFPAY ==
--- NOTE | 2025-01-14 09:46 | HO.NEPHOV_ITS ---
Vital Signs 01/14/25 09:47 Height 5 ft 6 in BP 160/62 H Blood Pressure Location Lt brachial Position Sitting Pulse 100 Pulse Source Pulse Oximeter Pulse Oximetry (%) 63 L Oxygen Delivery Method Room Air Intake Visit Reasons: 3wk Procrit follow-up/ Conf Lusterer Required: No Accompanied by: Spouse Allergies No Known Allergies Allergy (Verified 01/14/25 09:47) Medication List - Last Reconciled 01/14/25 by Martín De Luna MD albuterol sulfate 90 mcg/actuation (ProAir HFA) 2 puffs inhalation Q6H PRN albuterol sulfate 90 mcg/actuation (ProAir RespiClick) 1 inh inhalation Q4-6H PRN aspirin 81 mg PO DAILY atorvastatin 80 mg PO DAILY carvedilol 12.5 mg PO BID cholecalciferol (vitamin D3) 50 mcg PO DAILY ferrous sulfate (FeroSul) 325 mg PO DAILY furosemide 80 mg PO DAILY hydralazine 75 mg (1.5 x 50 mg) PO TID insulin glargine (Lantus Solostar U-100 Insulin) 62 units subcut DAILY insulin lispro (Humalog KwikPen (U-100) Insulin) subcut metolazone 2.5 mg PO DAILY PRN nifedipine ER mg PO DAILY pantoprazole 40 mg PO DAILY potassium chloride ER 10 mEq PO DAILY HPI Comments Details: 73-year-old pleasant woman with a history of diabetes mellitus for more than 35 years who was at chronic kidney disease. She is history of congestive heart failure and was on Entresto Lasix and furosemide. Back in November of 2023 creatinine was 2.6 with EGFR of 19 mL/minute. She is currently in nifedipine 60mg daily, hydralazine 75mg TID, carvedilol 12.5mg BID and furosemide 40mg PO BID She continues to have back pain. She has chronic shortness of breath (reports since prior to heart surgery last year which she states did not really help her breathing much. States at rest is ok, with exertion continues to have some dyspnea chronically). No nausea, vomiting. She has leg edema. Wears compression stockings. No weight loss. All other systems were reviewed History of congestive heart failure with preserved ejection fraction. 09/10/24 reports shortness of breath for a while now reports a year ago had open heart surgery, reports before then had it but surgery didn't make it better and has continued blood pressure medications- reports has not taken yet this a.m. Reports SBP at home is usually in 130s. 10/15/2024. Milla was hospitalized about a week ago. She had acute kidney injury superimposed on CKD with fungemia. Serum creatinine peaked more than 4. Diuretics were held. Renal function gradually improved. She is currently not on diuretics creatinine is around 3. She has significant edema. No shortness of breath at present. Accompanied by her family member. She had recently undergone laparoscopic cholecystectomy for symptomatic cholelithiasis. During this hospitalization faustina was negative. He has been catheter was inserted 1121. She is currently on micafungin and Zosyn 12/03/24 BP was low ; She was hospitalzied @ [facility] Nov 2023 : Cr 2.20 Nov 2024 Cr 2.2 with eGFR of 22 ml/mt 01/14/25: Recently in ER fro a viral infection; Resolved [facility] Medical History (Updated 10/15/24 @ 12:13 by SAMUEL Arias) Chronic kidney disease Degenerative joint disease (DJD) of hip Cataract Bunion Fatty liver DJD (degenerative joint disease), lumbar DJD (degenerative joint disease), cervical Diabetes mellitus type 2 with neurological manifestations Vitamin D deficiency Urinary incontinence Allergic rhinitis GERD (gastroesophageal reflux disease) Depression Diabetic retinopathy Hypertension Hyperlipidemia Diabetic nephropathy Surgical History History of cholecystectomy (~09/2024) History of open heart surgery (~02/2023) History of adjustable gastric banding Social History Patient Tobacco Use Status: Never used Tobacco Physical Exam Vital Signs: Last Vital Signs Pulse 100 01/14/25 09:47 BP 160/62 H 01/14/25 09:47 Pulse Ox 63 L 01/14/25 09:47 Oxygen Delivery Method Room Air 01/14/25 09:47 Neck Neck: Yes supple Resp Auscultation: clear to auscultation bilaterally Cardio Palpation: no palpable S3 Heart sounds: no rubs GI Palpation (GI): Soft to palpation Auscultation: normal bowel sounds Neuro Motor exam (neuro): no asterixis Extrem General: Yes edema Results Reviewed Nephrology Results: No Data to Display Assessment & Plan Assessment & Plan (1) Chronic kidney disease: Code(s): N18.9 - Chronic kidney disease, unspecified Category: Medical Qualifiers: Chronic kidney disease stage: stage 4 (severe) Qualified Code(s): N18.4 - Chronic kidney disease, stage 4 (severe) (2) Anemia: Code(s): D64.9 - Anemia, unspecified Category: Medical Qualifiers: Anemia type: due to chronic kidney disease Chronic kidney disease stage: stage 4 (severe) Qualified Code(s): N18.4 - Chronic kidney disease, stage 4 (severe); D63.1 - Anemia in chronic kidney disease (3) Diabetes mellitus with chronic kidney disease: Code(s): E11.22 - Type 2 diabetes mellitus with diabetic chronic kidney disease Category: Medical Qualifiers: Diabetes mellitus type: type 2 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 CKD is most likely due to underlying diabetic kidney disease. Nondiabetic causes seem unlikely based on the clinical picture. Creatinine is marginally better at 2.15 (previously 2.29). Goal at this point is to slow the progression of renal disease. Maintain blood pressure less than 130/80 - she did not take her blood pressure medicine this morning Maintain A1c less than 7%. She is on adequate dose of diuretics at this time. She should stay on low-sodium diet which she is working on She will benefit from SGLT2 inhibitors. Hypertension. 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 Iron stores are adequate. Administered Retacrit 59599 U administered subcutaneously today into left arm Lot [id number] Exp [facility] [id number] secondary hyperparathyroidism Mild elevation PTH. She will follow this and start her on vitamin D3 analog as needed. All questions were answered she will return to office in 2-3 weeks Orders: Orders Phosphorus 10 Days D63.1 - Anemia in chronic kidney disease, E11.22 - Type 2 diabetes mellitus with diabetic chronic kidney disease, N18.4 - Chronic kidney disease, stage 4 (severe), Z79.4 - long-term (current) use of insulin Parathyroid Hormone Intact 10 Days D63.1 - Anemia in chronic kidney disease, E11.22 - Type 2 diabetes mellitus with diabetic chronic kidney disease, N18.4 - Chronic kidney disease, stage 4 (severe), Z79.4 - long-term (current) use of insulin AMB Epoetin Injection Practice Supplied Today D63.1 - Anemia in chronic kidney disease, N18.4 - Chronic kidney disease, stage 4 (severe), N40.1 - Benign prostatic hyperplasia with lower urinary tract symptoms Basic Metabolic Panel 10 Days D63.1 - Anemia in chronic kidney disease, E11.22 - Type 2 diabetes mellitus with diabetic chronic kidney disease, N18.4 - Chronic kidney disease, stage 4 (severe), Z79.4 - long-term (current) use of insulin Complete Blood Count no Diff 10 Days D63.1 - Anemia in chronic kidney disease, E11.22 - Type 2 diabetes mellitus with diabetic chronic kidney disease, N18.4 - Chronic kidney disease, stage 4 (severe), Z79.4 - cat skinner (current) use of insulin IRON PROFILE 10 Days D63.1 - Anemia in chronic kidney disease, E11.22 - Type 2 diabetes mellitus with diabetic chronic kidney disease, N18.4 - Chronic kidney disease, stage 4 (severe), Z79.4 - cat skinner (current) use of insulin Ferritin 10 Days D63.1 - Anemia in chronic kidney disease, E11.22 - Type 2 diabetes mellitus with diabetic chronic kidney disease, N18.4 - Chronic kidney disease, stage 4 (severe), Z79.4 - cat skinner (current) use of insulin AMB Epoetin Injection Practice Supplied Today D63.1 - Anemia in chronic kidney disease, N18.4 - Chronic kidney disease, stage 4 (severe) Medications: New epoetin disha-epbx 20,000 units subcut ONCE 1 mL 0RF anemia D63.1 - Anemia in chronic kidney disease, N18.4 - Chronic kidney disease, stage 4 (severe), N40.1 - Benign prostatic hyperplasia with lower urinary tract symptoms epoetin disha-epbx 20,000 units subcut ONCE 1 mL 0RF anemia D63.1 - Anemia in chronic kidney disease, N18.4 - Chronic kidney disease, stage 4 (severe) Coding Level of Care Code Est Pt Level 4 (58651) Diagnoses Stage 4 chronic kidney disease N18.4 Chronic kidney disease stage: stage 4 (severe) Anemia due to stage 4 chronic kidney disease N18.4; D63.1 Anemia type: due to chronic kidney disease Chronic kidney disease stage: stage 4 (severe) Type 2 diabetes mellitus with stage 4 chronic kidney disease, with long-term current use of insulin E11.22; N18.4; Z79.4 Diabetes mellitus type: type 2 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
[2025-01-14 09:47] VITALS: BP 160/62; PULSE 100; O2SAT 63
--- OUTSIDE RECORDS SUMMARY | 2025-01-14 10:54 | XMS_ITS | Encounter Summary ---
Author Organization [facility] Address [address] [place] [address] Care Team Providers Care Agricultural Appraiser Name Role Phone Diana Romano MD Primary Care Provider Reason for Visit * Reason Comments Follow-up Encounter Details Date Type Department Care Team (Latest Contact Info) Description 12/16/2024 9:00 AM EST Office Visit Internal Medicine - [place] [address] [phone] Diana Romano MD [address] [phone] Routine medical exam (Primary Dx); 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); Primary hypertension; Stage 3b chronic kidney disease (CMS/HCC); Coronary artery disease involving buckland coronary artery of buckland heart without angina pectoris Social History Tobacco Use Types Packs/Day Years Used Date Smoking Tobacco: Never Smokeless Tobacco: Never Tobacco Cessation:Counseling Given: Not Answered Alcohol Use Standard Drinks/Week Comments No 0 (1 standard drink = 0.6 oz pur e alcohol) Comments No Sex and Gender Information Value Date Recorded Sex Assigned at Not on file Legal Sex Female 6:07 AM EST Gender Identity Not on file Sexual Orientation Not on file documented as of this [...] in this encounter Ordered Prescriptions Prescription Sig Dispense Quantity Refills Last Filled Start Date End Date carvediloL (COREG) 12.5 [...] stools : No dysuria, frequency or incontinence SIDE SPLITTER: No abnormal vaginal bleeding or abnormal vaginal [...] 12/19/2023 Edema 09/25/2023 Coronary artery disease involving buckland coronary artery of buckland heart without angina pectoris 03/26/2023 Abnormal positron emission tomography (PET) scan 02/05/2023 Atypical angina ([facility]) 12/27/2022 Cholecystitis 12/27/2022 Nausea 12/27/2022 Shortness of breath 12/27/2022 Vomiting 12/27/2022 Chronic kidney disease 07/07/2022 Allergic rhinitis 02/13/2017 Diabetes mellitus type 2 with neurological manifestations ([facility]) 02/13/2017 DJD (degenerative joint disease), cervical 02/13/2017 DJD (degenerative joint disease), lumbar 02/13/2017 Fatty liver 02/13/2017 GERD (gastroesophageal reflux disease) 02/13/2017 Type 2 diabetes mellitus with cataract ([facility]) 02/13/2017 Urinary incontinence 02/13/2017 Venous insufficiency 02/13/2017 Vitamin D deficiency 02/13/2017 Depression 02/08/2017 Diabetic neuropathy ([facility]) 02/08/2017 Diabetic retinopathy ([facility]) 02/08/2017 Hyperlipidemia 02/08/2017 Hypertension 02/08/2017 Bunion 02/25/2014 Cataract 02/07/2014 Degenerative joint disease (DJD) of hip 12/12/2013 Past Surgical History: Procedure Laterality Date APPENDECTOMY PROCEDURE: SD APPENDECTOMY BUNIONECTOMY Bilateral PROCEDURE: BUNION SURGERY, SIMPLE [...] COVID-19, mRNA, LNP-S, shreyas-sucrose, preservative free 06/23/2022 [employer] SARS-CoV-2 COVID-19, mRNA, LNP-S, preservative free 09/06/2021 [...] Diabetes mellitus type 2 with neurological manifestations ([facility]/HCC) 3. Primary hypertension 4. Stage 3b chronic kidney disease (CMS/HCC) 5. Coronary artery disease involving buckland coronary artery of buckland heart without angina pectoris PLAN: Diabetes--following endocrine [...] Care Team (Late st Contact Info) Description 04/10/2025 11:30 AM EDT Office Visit Internal Medicine - [place] [address] [facility] [address] [place] [address] Diana Romano MD 175 [facility] [address] [place] [address] Scheduled Orders Name Type Priority [...] 15.5 LAB CHEMISTRY METHOD 12/16/2024 2:[address] [facility] Calcium 9.2 8.5 - 10.5 mg/dL LAB CHEMISTRY METHOD 12/16/2024 2:[address] [facility] Blood Venous blood specimen / Unknown Venipuncture / Unknown 12/16/2024 9:48 AM EST 12/16/2024 9:48 AM EST us Diana Romano MD LAB BLOOD ORDERABLES Final Res ult [facility] [address] [place] [address], documented in this encounter Visit Diagnoses Diagnosis Routine medical exam- Primary Routine general medical examination at a health care facility Diabetes mellitus type 2 with neurological manifestations ([facility]) Primary hypertension Unspecified essential hypertension Stage 3b chronic kidney disease ([facility]) Coronary artery disease involving buckland coronary artery of buckland heart without angina pectoris documented in this [...] may reflect changes made after this encounter. carvediloL (COREG) 12.5 mg tablet Take 1 tablet (12.5 mg total) by mouth 2 (two) times a day with meals. 12/16/2024 added in this encounter Care Teams Agricultural Appraiser Relationship Specialty Start Date End Date Diana Romano MD [address] [phone] PCP - General Internal Medicine 4/9/13 documented as of this encounter
--- OUTSIDE RECORDS SUMMARY | 2025-01-14 10:54 | XMS_ITS | Encounter Summary ---
Author Organization [facility] Address [address] [place] [address] Care Team Providers Care Assembler Wire Group Name Role Phone Diana Romano MD Primary Care Provider [phone] Reason for Visit * Cardiac Stress Testing (Routine) - Closed Specialty Diagnoses / Procedures Referred By Contac t Referred To Contact Cardiology Diagnoses Coronary artery disease involving gulkana coronary artery of gulkana heart without angina pectoris Atypical chest pain Procedures Nuclear stress test with myocardial perfusion OR MYOCARDIAL PERFUSION IMAGING TOMOGRAPHIC MULTI STUDIES AT REST OR STRESS OR MYOCARDIAL PERFUSION IMAGING TOMOGRAPHIC SINGLE STUDY AT REST OR STRESS OR CARDIOVASCULAR STRESS TEST GLOBAL OR CV TMST/BIKE MAX/SUBMAX CONTINUOUS ECG MON/PHARM STRESS SUPVSR ONLY OR CV STRESS TEST/BIKE CONT ECG MON/PHARM STRESS INTERP & REPORT ONLY OR TEST STRESS CARDIOVASCULAR TRACING ONLY Christiane Sanders NP [address] [place] [address] [place] [address] Phone: tel: fax: [facility] Referral ID Status Reason Start Date Expiration Date Visits Re quested Visits Authorized [id number] Closed 12/12/2024 12/12/2025 1 1 Encounter Details Date Type Department Care Team (Latest Contact Info) Description 12/25/2024 8:00 AM EST Ancillary Procedure [facility] [address] [place] [address] Coronary artery disease involving gulkana coronary artery of gulkana heart without angina pectoris; Atypical chest pain Social History Tobacco Use Types Packs/Day Years [...] Sign Reading Time Taken Comments Blood Pressure 160/69 12/25/2024 8:24 AM EST Pulse - - Temperature - - Respiratory Rate - - Oxygen Saturation - - Inhaled Oxygen Concentration - - Weight 98 kg (216 lb) 12/25/2024 8:12 AM EST Height 167.6 cm (5' 6 ) 12/25/2024 8:12 AM EST Body Mass Index 34.86 12/25/2024 8:12 AM EST documented in this encounter Progress Notes * Sarika Miller MA - 12/25/2024 8:00 AM EST Called patient per Christiane Sanders [facility] and informed her that her stress test came back normal. Patient was thankful for the good news documented in this encounter Plan of Treatment Upcoming Encounters Date Type Department Care Team (Late st Contact Info) Description 04/10/2025 11:30 AM EDT Office Visit Internal Medicine - [place] [address] [place] [phone] Diana Romano MD [address] [place] [phone] documented as of this encounter Procedures Procedure Name Priority Date/Time Associated Diagnosis Comments NM LEXISCAN STRESS TEST W/ MYOCARDIAL PERFUSION Routine 12/25/2024 10:26 AM EST Coronary artery disease involving gulkana coronary artery of gulkana heart without angina pectoris Atypical chest pain documented in this encounter Results * NM LEXISCAN STRESS TEST W/ MYOCARDIAL PERFUSION (12/25/2024 10:26 AM EST) Exercise/injec tion duration (min) 0 CV PACS STRESS Exercise/injec tion duration (sec) 54 CV PACS STRESS Peak SBP 162 mmHg CV PACS STRESS Peak DBP 54 mmHg CV PACS STRESS Peak HR 80 bpm CV PACS STRESS Baseline HR 67 bpm CV PACS STRESS Baseline SBP 160 mmHg CV PACS STRESS Baseline DBP 69 mmHg CV PACS STRESS Estimated workload 1.0 METS CV PACS STRESS Percent HR 54 % CV PACS STRESS Rate Pressure Product 12,960.0 mmHg*bpm CV PACS STRESS BSA 2.14 m2 CV PACS STRESS Target HR 126 bpm CV PACS STRESS TID 1.18 CV PACS STRESS Nuc Stress EF 78 % CV PAC S STRESS Nuc Rest EF 68 % CV PACS STRESS O2 sat rest 99 % CV PACS STRESS Anatomical Region Laterality Modality Nuclear Medicine 12/25/2024 9:03 AM EST 12/25/2024 9:51 AM EST Impressions 12/25/2024 11:12 AM EST Normal Regadenoson stress test with nuclear imaging. ?? No chest pain or EKG changes consistent with ischemia. Nuclear imaging revealed no significant perfusion defects after attenuation correction was applied. There is a normal TID ratio. Gated SPECT imaging was performed and revealed an LVEF of 68 %. Narrative 12/25/2024 11:12 AM EST Nuclear imaging of the left ventricle shows a normal cavity size. Myocardial perfusion imaging of the left ventricle reveals no significant perfusion defects after CT attenuation correction was applied to the study Gated SPECT imaging was performed which demonstrated normal left ventricular systolic function. The calculated LVEF is 68 %. TID ratio is normal. Stress Findings A pharmacological stress test was performed using regadenoson, 0.4 mg IV over 10-15 seconds, followed by radiopharmacological injection 10 seconds post infusion. Total stress time was 0 min and 54 sec. The patient reached the end of the protocol. Reversal medication aminophylline 50 mg given. Blood pressure demonstrated a blunted response. Heart rate demonstrated a normal response. The patient reported shortness of breath during the stress test that resolved after the reversal medication aminophylline was given. ECG 73-year-old female with multiple cardiac risk factors, history of CABG x 2 and YANI x 2 to the OM1 and OM 2, experiencing increased dyspnea on exertion, into rule out ischemia. Baseline EKG: Normal sinus rhythm with left fascicular block. Patient is on beta-zoila as well as calcium channel zoila during testing. There were no arrhythmias during stress. There were no arrhythmias during recovery. In the setting of pharmacological nuclear stress test. Nuclear Study Quality Study technique: MPI, SPECT, multi, rest and stress, 1 day. Overall image quality is good. CT attenuation correction was utilized. No radiopharmaceutical dose was extravasated. The time from injection to rest imaging is 30 mins. The time from injection to stress imaging is 35 mins. Stress Function Comments Stress ejection fraction is 78%. Rest Function Comments Resting ejection fraction was 68%. us Christiane Sanders NP CV STRESS PROCEDURES Final Res ult documented in this encounter Visit Diagnoses Diagnosis Coronary artery disease involving gulkana coronary artery of gulkana heart without angina pectoris Atypical chest pain Other chest pain documented in this encounter Administered Medications Inactive Administered Medications - up to 3 most recent administrations Medication Order MAR Action Action Date Dose Rate Site aminophylline injection 75 mg 75 mg, intravenous, Once in imaging, Starting on Patt 12/25/24 at 0945, For 1 dose Given 12/25/2024 9:35 AM EST 75 mg regadenoson (LEXISCAN) injection 0.4 mg 0.4 mg, intravenous, Once in imaging, Starting on Patt 12/25/24 at 0930, For 1 dose Given 12/25/2024 9:24 AM EST 0.4 mg TC-99M tetrofosmin P radio-isotope injection 10.2 millicurie 10.2 millicurie, intravenous, Once in imaging, Starting on [facility] 12/25/24 at 0810, For 1 dose Given 12/25/2024 8:10 AM EST 10.2 millicuries TC-99M tetrofosmin P radio-isotope injection 29.3 millicurie 29.3 millicurie, intravenous, Once in imaging, Starting on [facility] 12/25/24 at 0930, For 1 dose Given 12/25/2024 9:25 AM EST 29.3 millicuries documented in this encounter Care Teams Assembler Wire Group Relationship Specialty Start Date End Date Diana Romano MD [address] [place] [phone] PCP - General Internal Medicine 02/25/13 documented as of this encounter
--- OUTSIDE RECORDS SUMMARY | 2025-01-14 10:54 | XMS_ITS | Continuity of Care Document ---
Author Organization [facility] Address [address] [place] [address]- Care Team Providers Care Seam Rubbing Machine Operator Name Role Phone Rosalina AVILES, Diana Worley Primary Care Physician [phone] Encounter 10/02/24 - 12/30/24 [facility] Visiting Nurse [facility] [address] [place] [id number] Discharge Disposition: PER CLIENT REQUEST Encounter Type: Disch [facility] Allergies, Adverse Reactions, Alerts No Known Allergies Immunizations Given and Recorded Vaccine Date Status Refusal Reason influenza virus vaccine, inactivated 06/23/22 Anthony rded influenza virus vaccine, inactivated 07/15/21 Anthony rded influenza virus vaccine, inactivated 08/18/20 Anthony rded influenza virus vaccine, inactivated 08/05/20 Anthony rded influenza virus vaccine, inactivated 09/28/18 Give n influenza virus vaccine, inactivated 09/24/15 Anthony rded SARS-CoV-2 mRNA ([id number]) vax 06/23/22 Recorded SARS-CoV-2 (COVID-19) mRNA BNT-162b2 [...] 3:02:00 PM EST, [id number], Partial fill upon patient request if the [...] 3:13:00 PM EST, Route to Pharmacy Electronically, [facility], Partial fill upon [...] Refills, Maintenance, 11/24/23 3:15:00 PM EST, Tablet, [facility], Partial fill upon [...] 11/24/23 3:13:00 PM EST,Route to Pharmacy Electronically, [facility], Partial fill upon patient request if [...] Confirmed Active Neuropathy Confirmed Active Obese class I Confirmed Active Retinopathy Confirmed Active Social History Social History Type Response Smoking Status Never smoker entered on: 09/14/15 Sex Sex Representation Female (finding) Patient Care team information Care Team Personnel Name: Anuradha Flores RN Position: [facility] RN Member Role: Primary Care Nurse Name: Diana Romano MD Position: Reference Physician Member Role: PCP Address: [address] [place] [address], [address] [place] [address]- Telecom: Name: Nadya Harrison RN Position: [facility] RN Member Role: Primary Care Nurse Name: Carlee Concepcion RN Position: [facility] RN Member Role: Primary Care Nurse Name: Renate Bradley RN Position: [facility] RN Member Role: Primary Care Nurse Name: Tita Scanlon RN Position: [facility] RN Member Role: Primary Care Nurse Name: Lizbeth Maier RN Position: [facility] RN Member Role: Primary Care Nurse Name: Heavenly Martino RN Position: [facility] RN Member Role: Primary Care Nurse Name: Slick Martino RN Position: [facility] ED RN W/OE and Tasks Member Role: Primary Care Nurse Name: Elodia Garcia RN Position: [facility] RN Member Role: Primary Care Nurse Name: Kelly Barba RN Position: [facility] RN Member Role: Primary Care Nurse Name: Renee Graham RN Position: [facility] RN Member Role: Primary Care Nurse Name: Anuradha Cai RN Position: [facility] RN Member Role: Primary Care Nurse Name: Matty Joel MD Position: S Outreach Member Role: Lifetime Consulting Physician Address: [address] [facility] [address] [facility] [place] [address]- Telecom: Name: Ash Soto MD Position: [facility] Renal MD Member Role: Lifetime Consulting Physician Address: [address] [facility] [facility] [address] Telecom: Name: Slick Armstrong RN Position: S RN Member Role: Primary Care Nurse Name: Araceli Pinto RN Position: S RN Member Role: Primary Care Nurse Name: Karen Resendez RN Position: S RN Member Role: Primary Care Nurse Name: Alber Hernández MD Position: [facility] Renal MD Member Role: Lifetime Consulting Physician Address: [address] [facility] [facility] [address] Telecom: Name: Kavitha Choudhary RN Position: [...] Name: AMILCAR JOHNSON Insurance Providers Guarantor [facility] Information #: 1 Payer: NA Member Number: NA Policy Number: NA Group Number: [id number]
--- OUTSIDE RECORDS SUMMARY | 2025-01-14 10:54 | XMS_ITS | Encounter Summary ---
Author Organization [facility] Address [address] [place] [address] Care Team Providers Care Shell Molding Roller Blast Operator Name Role Phone Diana Romano MD Primary Care Provider [phone] Reason for Visit * Reason Comments Video Telehealth Encounter Details Date Type Department Care Team ([facility] st Contact Info) Description 01/08/2025 10:30 AM EST Telemedicine [facility] [address] [place] [address] Michael Torrez MD [address] [place] [address] [address] [place] [address] Atypical chest pain (Primary Dx); Coronary artery disease involving eastern [place] coronary artery of eastern [place] heart without angina pectoris Social History Tobacco [...] as of this encounter Progress Notes * Michael Torrez MD - 01/12/2025 11:17 AM ESTAssociated Problem(s): Coronary artery disease involving eastern [place] coronary artery of eastern [place] heart without angina pectoris Status post CABG with reassuring recent stress test. Continue cardiac regimen including low-dose ofaspirin indefinitely, atorvastatin with goal LDL of less than 70, carvedilol, hydralazine for bloodpressure control and low-dose Lasix. We reviewed the importance of cardiac rehab which would be very reasonable for her as this provide her significant benefit previously. We will continue to follow her on a regular basis in our office. * Michael Torrez MD - 01/12/2025 11:16 AM ESTAssociated Problem(s): Atypical chest pain Stress test reassuring without perfusion abnormalities chest discomfort perhaps musculoskeletal also probably was related to Novoa catheter. I reassured her. * Michael Torrez MD - 01/08/2025 10:30 AM EST Images from the original note were not included. [facility] PCP: Diana Romano MD HPI: Milla Guzman is a 74 y.o. old female with past medical history of coronary artery disease with severeleft main disease status post two-vessel coronary artery bypass graft with GRIMM to LAD and SVG to RPL A in February 2023, chronic diastolic heart failure, insulin-dependent diabetes, atypical chest pain, systemic hypertension, chronic edema, obesity, and strong family history of coronary artery disease She presents for a video visit today. She is difficulty ambulating related to lymphedema and requested a video visit.She is located at her home in [facility] and I am located in my office in [facility] Multiple hospitalization was reviewed including September 2024 where she underwent a cholecystectomyand had postoperative fungal infection requiring long-term treatment via Novoa catheter. For lower extremity edema she has been evaluated in the past by vascular. She is elevating her legs and using compression stockings. We previously a plan to refer her to a lymphedema clinic. She was seen in the office around 1 month ago reporting pain on the right side of the chest near where the Novoa site was. The pain occurred at rest. She also would have dizziness and lightheadedness after taking her medications in the morning. She is compression stockings for her lower extremities. Arrangements were made for a pharmacologic nuclear stress test. The study was performed on 12/25/2024 and demonstrated no evidence of perfusion abnormalities, normal ejection fraction.She has not had significant recurrence of the atypical chest discomfort. She does plan to attend cardiac rehab although she has had illnesses that have set her back. She reports feeling tired but this is not a new concern Prior cardiac testing reviewed Echocardiogram from 2023 documented normal ejection fraction, no significant valvular disease Echocardiogram from September 2024 with similar findings Stress test 2024 no perfusion abnormalities ACTIVE MEDICATIONS: Outpatient Medications Marked as Taking for the 01/08/25 encounter (Telemedicine) with Michael Torrez MD Medication Sig Dispense Refill acetaminophen (TYLENOL) [...] CAPSULE BY MOUTH DAILY 90 capsule 1 docusate sodium (COLACE) 100 mg capsule Take 1 Capsule by mouth 2 times daily for 360 days. fluticasone propionate (FLONASE) 50 mcg/actuation nasal spray [...] by mouth 2 (two) times a day. PAST MEDICAL HISTORY: Patient Active Problem List Diagnosis Abnormal positron emission tomography (PET) scan Allergic rhinitis Atypical angina (CMS/HCC) Atypical chest pain Bunion Cataract Cholecystitis Chronic kidney disease Coronary artery disease involving eastern [place] coronary artery of eastern [place] heart without angina pectoris Degenerative joint disease [...] ejection fraction (CMS/HCC) ALLERGIES: No Known Allergies FAMILY HISTORY: Family History Problem Relation Name Age of Onset Arthritis Mother CAD, pulmonary embolus Coronary artery disease Father SOCIAL HISTORY: Social History Tobacco Use Smoking status: Never Smokeless tobacco: Never Substance Use Topics Alcohol use: No PHYSICAL EXAM: There were no vitals filed for this visit. Physical Exam Constitutional: Appearance: Normal appearance. HENT: Head: Normocephalic and atraumatic. Neurological: General: No focal deficit present. Mental Status: She is alert and oriented to person, place, and time. Psychiatric: Mood and Affect: Mood normal. Behavior: Behavior normal. ASSESSMENT/PLAN: Atypical chest pain Stress test reassuring without perfusion abnormalities chest discomfort perhaps musculoskeletal also probably was related to Novoa catheter. I reassured her. Coronary artery disease involving eastern [place] coronary artery of eastern [place] heart without angina pectoris Status post CABG with reassuring recent stress test. Continue cardiac regimen including low-dose ofaspirin indefinitely, atorvastatin with goal LDL of less than 70, carvedilol, hydralazine for bloodpressure control and low-dose Lasix. We reviewed the importance of cardiac rehab which would be very reasonable for her as this provide her significant benefit previously. We will continue to follow her on a regular basis in our office. No orders of the defined types were placed in this encounter. documented in this encounter Plan of Treatment Upcoming Encounters Date Type Department Care Team (Late st Contact Info) Description 04/10/2025 11:30 AM EDT Office Visit [facility] [address] [place] [phone] Diana Romano MD [address] [place] [phone] documented as of this encounter Visit Diagnoses Diagnosis Atypical chest pain- Primary Other chest pain Coronary artery disease involving eastern [place] coronary artery of eastern [place] heart without angina pectoris documented in this encounter Additional Health Concerns Assessment Noted Time PHQ-9 Depression Total Score: 0 01/08/20 25 10:50 AM EST documented as of this encounter Care Teams Shell Molding Roller Blast Operator Relationship Specialty Start Date End Date Diana Romano MD [address] [place] [phone] PCP - General Internal Medicine 02/25/13 documented as of this encounter
--- OUTSIDE RECORDS SUMMARY | 2025-01-14 10:54 | XMS_ITS ---
Author Name Sera Houser NP Address [address] [place] [address] Phone [phone] [facility] Care Team Providers Care Stallion Keeper Name Role Phone Sera Houser Unavailable [phone] [facility] [place] [place] Unavailable Unavailable Unavailable [phone] Unavailable Unavailable Unavailable Unavailable Unavailable [phone] Unavailable Unavailable [phone] Unavailable Unavailable [phone] Unavailable Unavailable [phone] Unavailable Unavailable [phone] Unavailable Unavailable [phone] Unavailable Unavailable [phone] Unavailable Unavailable [phone] Unavailable Unavailable [phone] [employer] Unavailable [phone] Unavailable Unavailable Unavailable medline Unavailable [phone] Diana Romano Unavailable [phone] CHELSIE MEYER Unavailable [phone] Reason for Referral Not Available Allergies, adverse reactions, alerts No known allergies History of medication use Medication Class Instructions Start Date End Date Aspirin EC 81 mg Tab delayed rel take 1 tablet by mouth daily 2022-09-11 No Data Available Naproxen 125 mg/5ML Suspension 10 ml ora lly 2 times per day with food or milk 2022-09-11 No Data Available Methenamine Hippurate 1 GM Tab 1 tablet orally one tiffani ly 2022-09-11 No Data Available Spironolactone 25 mg Tab 1 tab po q am 2022-09-11 No Data Available Lantus SoloStar 100 UNIT/ML Solution Pen-injector ADMINISTER 62 UNITS UNDER THE SKIN EVERY DAY 2021-09-29 No Data Available Methenamine Hippurate 1 GM Tab TAKE 1 TA BLET BY MOUTH TWICE DAILY 2021-10-24 No Data Available Losartan Potassium 100 mg Tab TAKE 1 TAB LET BY MOUTH DAILY 2021-06-01 No Data Available Naproxen 125 mg/5ML Suspension TAKE 10 - 20ML BY MOUTH TWICE DAILY NEEDED FOR PAIN 2022-02-01 No Data Available P-4 K-10 PAIN FORMULATION SA LT STABLE APPLY 1-3 GRAMS TO THE AFFECTED AREA 3-4 TIMES DAILY (FEET) 2022-02-01 No Data Available hydroCHLOROthiazide 25 mg Tab TAKE 2 TAB LETS BY MOUTH DAILY 2021-10-10 No Data Available VITAMIN D 1000IU H/PTNCY CAPSULES TAKE 1 CAPSULE BY MOUTH DAILY 2022-04-19 No Data Available Advair HFA 115-21 MCG/ACT Aerosol INHALE 2 PUFFS BY MOUTH TWICE DAILY. RINSE MOUTH AFTER EACH ADMINISTRATION TO AVOID FUNGAL INFECTION DUE TO INHALED STERIOD. 2022-02-28 No Data Available Simvastatin 40 mg Tab TAKE 1 TABLET BY M OUTH AT BEDTIME 2022-04-24 No Data Available Albuterol Sulfate HFA 108 (9 0 Base) MCG/ACT Aerosol Solution INHALE 2 PUFFS INTO THE LUNGS EVERY 6 HOURS NEEDED FOR COUGH OR WHEEZING OR SHORTNESS OF BREATH 2021-11-10 No Data Available Diclofenac Sodium 1 % Gel APPLY 4 GRAMS TOPICALLY TO THE AFFECTED AREA TWICE DAILY 2022-05-04 No Data Available Lidocaine 5 % Patch PLACE 1 PATCH ONTO T HE SKIN EVERY 24 HOURS. APPLY FOR NO MORE THAN 12 HOURS IN A 24 HOUR PERIOD 2022-05-04 No Data Available B-D PEN NDL SHRT 39DP3CM(03/19 6) SHAW USE DIRECTED TO ADMINISTER INSULIN AND VICTOZA UP TO SIX TIMES DAILY 2022-04-25 No Data Available Carvedilol 6.25 mg Tab TAKE 1 TABLET BY MOUTH TWICE DAILY WITH MEALS 2022-02-13 No Data Available Victoza 18 mg/3ML Solution Pen-injector ADMINISTER 1.8 MG UNDER THE SKIN EVERY DAY 2021-08-02 No Data Available Insulin Lispro (1 Unit Dial) 100 UNIT/ML Solution Pen-injector INJECT 10 - 30 UNITS UNDER THE SKIN THREE TIMES DAILY BEFORE A MEAL 2022-08-09 No Data Available Tylenol 8hr 650 mg Tab ER2 1 tab as needed 2023-01-02 No Data Available Simvastatin 40 mg Tab 1 tablet orally da irais in the evening 2022-04-24 No Data Available Problem List Problem Status Onset Date Resolved Date COPD (chronic obstructive pulmonary disease) Active 2022-09-11 N/A CHF (congestive heart failure) Active 2022-09-11 N/A HTN (hypertension) Active 2022-09-11 N/A Hyperlipemia Active 2022-09-11 N/A Major depressive disorder Active 2022-09-11 N/ A Arthritis Active 2022-09-11 N/A CKD (chronic kidney disease) stage 3, GFR 30-59 ml/min Active 2022-09-11 N/A Secondary hyperaldosteronism Active 2022-09-12 N/A Chronic pain Active 2022-09-22 N/A Type 2 diabetes mellitus with chronic kidney disease A ctive 2022-09-11 N/A Cholecystitis Active 2023-01-02 N/A Encounters Encounters Type Facility Date of Service Diagnosis/Co mplaint Medication List Documented (1159F) [facility] Medication List Documented (1159F) [facility] Medication List Documented (1159F) [facility] Medication List Documented (1159F) [facility] Medication List Documented (1159F) [facility] Medication List Documented (1159F) [facility] Medication List Documented (1159F) [facility] Medication List Documented (1159F) [facility]2022 Type 2 diabetes mellitus wit h diabetic chronic kidney diseaseChronic kidney disease, stage 3 unspecifiedChronic obstructive pulmonary disease, unspecifiedHyp hrt & chr kdny dis w hrt fail and stg 1-4/unsp chr kdnyHeart failure, unspecifiedHyperlipidemia, unspecifiedMajor depressive disorder, single episode, unspecifiedUnspecified osteoarthritis, unspecified site No Data Available [facility]2022 Unspecified osteoarthritis, unspecified siteOther chronic painHeart failure, unspecifiedChronic obstructive pulmonary disease, unspecified No Data Available [facility] 10[place]18/2022 Unspecified osteoarthritis, unspecified siteOther chronic pain No Data Available [facility], ([place] 01/02/2023 Cholecystitis, unspecified No Data Available [facility]/02/2023 Vital Signs Date of Collection Vitals 2022-09-11 07:40:43 Height - 165.1 cmWei ght - 109.32 kgBody Mass Index (BMI) - 40.1 kg/m2BP Diastolic - 84.0 mm[Hg]BP Systolic - 170.0 mm[Hg]Heart Rate - 88.0 /min Social History Social History Social History Observation Description Effec tive Time Current Smoking Status Never smoker 2024-12-21 7 Sex Female History of Procedures Procedures Service Procedure code Service date Servicing provider Phone# Medication List Documented (1159F) 1159F 2022-09-11 No Data Available No Data Matilde ilable Medication Review by prescribing provider or pharmacist documented (1160F) 1160F 2022-09-11 No Data Available No Data Matilde ilable Functional Status Assessed (1170F) 1170F 2022-09-11 No Data Available No Data Avail able Advance Care Directive Advance care planning discussion documented in the medical record (1158F) 1158F 2022-09-11 No Data Available No Data Availa ble BMI obtained (3008F) 3008F 2022-09-11 No Data Availab le No Data Available DBP 80-89 (3079F) 3079F 2022-09-11 No Data Available No Data Available SBP >= 140 3077F 2022-09-11 No Data Available No Data Available New patient,40-59min; chronic exacerbation, 2 stable chronic or 1 acute illness add add modifier 95 for video (do not use for phone, instead use 90939-89) 97036 2022-09-11 No Data Available No Data Availa ble No Data Available 13637 2022-09-22 No Data Available No Data Available No Data Available 49560 2022-10-18 No Data Available No Data Available No Data Available 12111 2023-01-02 No Data Available No Data Available Medications prescribed in hospital were reviewed and reconciled against what they were taking prior to admission during today's visit. (1111F) 1111F 2023-01-02 No Data Available No Data Availa ble Functional Status Functional Category Effective Dates very limited, uses walker. ALEMAN 2022-08-20 4 uses depends 2022-09-11 requires assistance with all adls 2021-11 0-24 Mental Status Status Date alert and oriented x 3 2022-09-11 Assessments Date of Service Assessments 2022-09-11 07:40:43 Type 2 diabetes ehsan itus with chronic kidney diseaseCOPD (chronic obstructive pulmonary disease)CHF (congestive heart failure)HTN (hypertension)HyperlipemiaMajor depressive disorderArthritisCKD (chronic kidney disease) stage 3, GFR 30-59 ml/min 2022-09-22 09:09:17 Arthritis [M19.90]Ch ronic pain [G89.29]CHF (congestive heart failure) [I50.9] COPD (chronic obstructive pulmonary disease) [J44.9] 2022-10-18 12:43:59 Arthritis [M19.90]Ch ronic pain [G89.29] 2023-01-02 09:19:59 Assessment:Patient E ducation to avoid future hospitalization: Call [facility] if symptoms of illness develop. Cholecystitis [K81.9] Plan of Care Date of Service Plans 2022-09-11 07:40:43 Medication Review by prescribing provider or pharmacist documented (1160F)Medication List Documented (1159F)Functional Status Assessed (1170F)Advance Care Directive Advance care planning discussion documented in the medical record (1158F)BMI obtained (3008F)SBP >= 140DBP 80-89 (3079F)Televideo new patient,40-59min; chronic exacerbation, 2 stable chronic or 1 acute illness add modifier 95Continue to see PCP. Follow-up with Tasia as needed for any acute or disease education needs that may arise.a1c 8.6fs today 143, 88 this ludmila lantus , humalog ss, and victozaadvair and albuterolhctz, spironolactone, losartan,carvedilolsob, aleman harder for patient to perform adlscardiologist Dr Meyercarvedilol, losartan, hctzamlodipine recently dceddr morine cards following bp runs highsimvastatinno meds currentlyphq 17naproxenlimited notes in outside care, pt reports recent labs to check kidneys but hasnt heard back re results 2022-09-22 09:09:17 Arthritis [M19.90]> naproxenChronic pain [G89.29]> On TylenolCHF (congestive heart failure) [I50.9]> hctz, spironolactone, losartan,carvedilolsob, aleman harder for patient to perform adlscardiologist Dr Meyer COPD (chronic obstructive pulmonary disease) [J44.9]> advair and albuterolPhone (patient, parent, or guardian); 11-20 minutes of medical discussion (no modifier 95)Continue to see PCP. Follow-up with Tasia as needed for any acute or disease education needs that may arise 11/06. 2022-10-18 12:43:59 Arthritis [M19.90]> naproxenChronic pain [G89.29]> On TylenolImpaired mobilityReferral for a POV- scooter to assist with ADLSTelevideo 20-29min; 1 stable chronic or 2 minor; add modifier 95Continue to see PCP. Follow-up with Tasia as needed for any acute or disease education needs that may arise 11/06. 2023-01-02 09:19:59 Cholecystitis [K81.9 ]> Pt will f/u with [facility] to schedule OP f/u for discussion of Cholecystectomy.Discharge medications reconciled with current medication listPhone (patient, parent, or guardian); 11-20 minutes of medical discussion (no modifier 95)PCP visit is planned for: F/u with PCP on 01/09/23 Goals Date Goal 2022-09-11 Remember to 2022-09-11 Call me if 2022-09-11 Keep it up Health Concerns Date Concern 2023-01-02 Visit completed by deirdre lopez.- Hospital discharge paperwork requested/reviewed. - Reason for Hospitalization and summary of hospital course: 12/20/22- 12/22/22[facility] for chest and abdominal pain. She was having pain in the RUQ, fever, chills and nausea. She was treated with Abx for Acute cholecystitis. US revealed gallstones and elevated troponinsHome Health or DME needs:0Meds: 0Review of the medications patient was prescribed at the hospital and compared it against what they were taking prior to admission during todays visit.Rx Meds:Advair HFA 115-21 MCG/ACT Aerosol sig: INHALE 2 PUFFS BY MOUTH TWICE DAILY. RINSE MOUTH AFTER EACH ADMINISTRATION TO AVOID FUNGAL INFECTION DUE TO INHALED STERIOD.Albuterol Sulfate HFA 108 (90 Base) MCG/ACT Aerosol Solution sig: INHALE 2 PUFFS INTO THE LUNGS EVERY 6 HOURS NEEDED FOR COUGH OR WHEEZING OR SHORTNESS OF BREATHAtorvastatin Calcium 40 mg Tab sig: TAKE 1 TABLET BY MOUTH ONCE QHSB-D PEN NDL SHRT [id number](04/03) SHAW sig: USE DIRECTED TO ADMINISTER INSULIN AND VICTOZA UP TO SIX TIMES DAILYCarvedilol 6.25 mg Tab sig: TAKE 1 TABLET BY MOUTH TWICE DAILY WITH MEALShydroCHLOROthiazide 25 mg Tab sig: TAKE 2 TABLETS BY MOUTH DAILYInsulin Lispro (1 Unit Dial) 100 UNIT/ML Solution Pen-injector sig: INJECT 10 - 30 UNITS UNDER THE SKIN THREE TIMES DAILY BEFORE A MEALLantus SoloStar 100 UNIT/ML Solution Pen-injector sig: ADMINISTER 62 UNITS UNDER THE SKIN EVERY DAYLosartan Potassium 100 mg Tab sig: TAKE 1 TABLET BY MOUTH DAILYMethenamine Hippurate 1 GM Tab si tablet orally one dailyNaproxen 125 mg/5ML Suspension si ml orally 2 times per day with food or milkNexIUM 40 mg Cap delayed rel si capsule orally dailyP-4 K-10 PAIN FORMULATION SALT STABLE sig: APPLY 1-3 GRAMS TO THE AFFECTED AREA 3-4 TIMES DAILY (FEET)Spironolactone 25 mg Tab si tab po q amVictoza 18 mg/3ML Solution Pen-injector sig: ADMINISTER 1.8 MG UNDER THE SKIN EVERY DAYVITAMIN D 1000IU H/PTNCY CAPSULES sig: TAKE 1 CAPSULE BY MOUTH DAILY
--- OUTSIDE RECORDS SUMMARY | 2025-01-14 10:54 | XMS_ITS | Encounter Summary ---
Author Organization [facility] Address [address] [place] [address] Care Team Providers Care Land Survey Technician Name Role Phone Diana Romano MD Primary Care Provider [phone] Reason for Visit * Reason Onset Date Comments [facility] call 11/26/2024 Encounter Details Date Type Department Care Team (Late st Contact Info) Description 11/26/2024 Telephone Internal Medicine [facility] [address] [phone] Diana Romano MD [address] [phone] [facility] call Social History Tobacco [...] - 11/26/2024 11:00 AM EST FYI from [facility], please see below. Pt has been in contact with her draw string knotter, spoke w/ them about this issue already on 11/24, has upcoming appt w/ cardiology 12/10. Next appt w/ PCP is 12/16 Dr. Rosalina Horton from [facility] called and wanted to let the doctor know as an FYI: patient hasbeen feeling weak with headaches and low blood pressure the past 4 days. He stated she has a cardiology appt coming up so she will be getting medication adjustments, but he wanted to let the doctor know. * Susan Vasquez - 11/26/2024 10:53 AM EST Clifford from [facility] called and wanted to let the doctor [...] AM EDT Office Visit Internal Medicine - [place] [address] [phone] Diana Romano MD [address] [phone] documented as of this encounter Visit Diagnoses Not on filedocumented in this encounter Care Teams Land Survey Technician Relationship Specialty Start Date End Date Diana Romano MD [address] [phone] PCP - General Internal Medicine 02/25/13 documented as of this encounter
--- OUTSIDE RECORDS SUMMARY | 2025-01-14 10:54 | XMS_ITS | Encounter Summary ---
Author Organization [facility] Address [address] [place] [address] Care Team Providers Care Objective C Developer Name Role Phone Diana Romano MD Primary Care Provider [phone] Reason for Visit * Reason Onset Date Comments Appointment 01/06/2025 Encounter Details Date Type Department Care Team (Late st Contact Info) Description 01/06/2025 Telephone [facility] Cardiology [facility] [address] [place] [phone] Michael Torrez MD [address] [place] [address] [address] [place] [address] Appointment Social History Tobacco Use Types Packs/Day Years [...] as of this encounter Progress Notes * Beth Rojas - 01/06/2025 3:15 PM EST The patient called she would like to know if her appointment on 01/08/25 can be done vis mychart video visit. Please advise. documented in this encounter Plan of Treatment Upcoming Encounters Date Type Department Care Team (Late Contact Info) Description 04/10/2025 11:30 AM EDT Office Visit Internal Medicine - [place] 175 [facility] [address] [place] [phone] Diana Romano MD [address] [phone] documented as of this encounter Visit Diagnoses Not on filedocumented in this encounter Care Teams Objective C Developer Relationship Specialty Start Date End Date Diana Romano MD [address] [phone] PCP - General Internal Medicine 02/25/13 documented as of this encounter
--- OUTSIDE RECORDS SUMMARY | 2025-01-14 10:54 | XMS_ITS | Clinical Summary ---
Author Organization 175 [facility] Address [address] [place] [address] Phone Care Team Providers Care Urgent Care Physician Assistant Name Role Phone Dionisio Romano MD Primary Care Provider [phone] Allergies No known active allergies Medications methenamine hippurate (HIPREX) 1 gram tablet Take 1 tablet (1 g total) by mouth 2 (two) times a day. 08/25/20 24 Active docusate sodium (COLACE) 100 mg capsule Take 1 Capsule by mouth 2 times daily for 360 days. 08/11/20 24 025 Active furosemide (LASIX) 40 mg tablet Take 2 tablets (80 mg total) by mouth 1 (one) time each day. 07/08/20 24 Active potassium chloride (Pokonza) 10 mEq packet Take 1 tablet by mouth 2 (two) times a day. Active aspirin 81 mg EC tablet Take 1 tablet (81 mg total) by mouth 1 (one) time each day. Active dulaglutide (Trulicity) 1.5 mg/0.5 mL pen injector injection Inject 1 Dose into the skin once a week. 12/14/19 24 Active insulin glargine (Lantus Solostar U-100 Insulin) 100 unit/mL (3 mL) injection pen Inject 40 Units into the skin at bedtime. 03/21/20 23 Active multivitamin (MULTIPLE VITAMINS ORAL) Take by mouth daily. 09/15/20 15 Active pen needle, diabetic (BD Ultra-Fine Short Pen Needle) 31 gauge x 5/16 needle USE DIRECTED TO ADMINISTER INSULIN AND VICTOZA UP TO SIX TIMES DAILY 05/14/20 22 Active albuterol HFA (PROAIR HFA ; PROVENTIL HFA ; VENTOLIN HFA) 90 mcg/actuation inhaler Inhale 2 Puffs into the lungs every 6 hours as needed for Cough, Wheezing or Shortness of Breath. 11/10/20 21 Active fluticasone propionate (FLONASE) 50 mcg/actuation nasal spray 2 Sprays by Nasal route daily. Please spray 2 sprays in each nostrils daily for 3-4 weeks, then down to 1 spray in each nostril daily. 11/10/20 21 Active blood pressure monitor kit 1 Each by Does not apply route as needed (use as needed). 07/07/20 21 Active acetaminophen (TYLENOL) 500 mg tablet Take 500 mg by mouth every 6 hours as needed. Active insulin lispro (HumaLOG KwikPen Insulin) 100 unit/mL injection pen Inject into the skin. Sliding scale Active pantoprazole (PROTONIX) 40 mg EC tablet TAKE 1 TABLET BY MOUTH DAILY 90 tablet 1 09/24/20 24 Active metOLazone (ZAROXOLYN) 2.5 mg tablet Take 1 tablet by mouth daily as needed for swelling 15 tablet 1 10/08/20 24 Active atorvastatin (LIPITOR) 80 mg tablet Take 1 tablet (80 mg total) by mouth 1 (one) time each day. 30 tablet 2 10/08/20 24 025 Active hydrALAZINE (APRESOLINE) 50 mg tablet Take 1 tablet (50 mg total) by mouth 3 (three) times a day. Active NIFEdipine XL (PROCARDIA XL) 30 mg 24 hr tabletIndicati ons:Coronary artery disease involving lovelock coronary artery of lovelock heart without angina pectoris Take 1 tablet (30 mg total) by mouth 1 (one) time each day before breakfast. Do not crush, chew, or split. 90 each 2 12/12/19 25 Active carvediloL (COREG) 12.5 mg tablet Take 1 tablet (12.5 mg total) by mouth 2 (two) times a day with meals. 180 tablet 3 12/16/19 25 Active cholecalcifero l (VITAMIN D-3) 50 mcg (2,000 unit) capsule TAKE 1 CAPSULE BY MOUTH DAILY 90 capsule 1 12/22/19 25 Active cholecalcifero l (VITAMIN D-3) 50 mcg (2,000 unit) capsule Take 1 capsule (2,000 Units total) by mouth 1 (one) time each day. 12/14/19 24 025 Discontinued carvediloL (COREG) 25 mg tablet Take 12.5 mg by mouth 2 (two) times a day with meals. 025 Discontinued(Ex pired) carvediloL (COREG) 12.5 mg tablet Take 1 tablet (12.5 mg total) by mouth 2 (two) times a day with meals. 025 Discontinued(Re order) Hospital, Clinic, or Other Facility Administered Medication Ordered Dose Route Frequency Start Date End Date Status TC-99M tetrofosmin P radio-isotope injection 10.2 millicurie 10.2 millicurie IV Once in imaging 12/25/2024 12/25/2024 Ende d TC-99M tetrofosmin P radio-isotope injection 29.3 millicurie 29.3 millicurie IV Once in imaging 12/25/2024 12/25/2024 Ende d regadenoson (LEXISCAN) injection 0.4 mg 0.4 mg IV Once in imaging 12/25/2024 12/25/2024 End ed aminophylline injection 75 mg 75 mg IV Once in imaging 12/25/2024 12/25/2024 Ende d Active Problems Problem Noted Date Diagnosed Date [...] echocardiogram in September 2024 while hospitalized at [facility] which was reviewed. Abdominal pain 12/09/2024 Hypotension 12/09/2024 Atypical chest pain 12/19/2023 Assessment & Plan (01/12/2025 11:16 AM EST): Stress test reassuring without perfusion abnormalities chest discomfort perhaps musculoskeletal also probably was related to Novoa catheter. I reassured her. Assessment & Plan (12/12/2024 10:28 AM EST): See CAD plan. Orders: Nuclear stress test with myocardial perfusion; Future Heart failure 12/19/2023 Pulmonary edema 12/19/2023 Edema 09/25/2023 Coronary artery disease invo lving lovelock coronary artery of lovelock heart without angina pectoris 03/26/2023 Overview (09/04/2024): [...] order for cardiac rehab. Assessment & Plan (01/12/2025 11:17 AM EST): Status post CABG with reassuring recent stress test. Continue cardiac regimen including low-dose of aspirin indefinitely, atorvastatin with goal LDL of less than 70, carvedilol, hydralazine for blood pressure control and low-dose Lasix. We reviewed the importance of cardiac rehab which would be very reasonable for her as this provide her significant benefit previously. We will continue to follow her on a regular basis in our office. Assessment & Plan (12/12/2024 10:28 AM EST): [...] Encounters Date Type Department Care Team Description 01/08/2025 10:30 AM EST Telemedicine [facility] Cardiology [facility] [address] [place] [phone] Michael Torrez MD Atypical chest pain (Primary Dx); Coronary artery disease involving lovelock coronary artery of lovelock heart without angina pectoris 01/06/2025 Telephone [facility] Cardiology [facility] [address] [place] [phone] Michael Torrez MD Appointment 12/25/2024 8:00 AM EST [facility] [address] [place] [phone] Coronary artery disease involving lovelock coronary artery of lovelock heart without angina pectoris; Atypical chest pain 12/16/2024 9:00 AM EST Office Visit Internal Medicine [facility] [address] [facility] [address] [place] [phone] Dionisio Romano MD Routine medical exam (Primary Dx); 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); Primary hypertension; Stage 3b chronic kidney disease (CMS/HCC); Coronary artery disease involving lovelock coronary artery of lovelock heart without angina pectoris 12/12/2024 8:10 AM EST Office Visit [address] [place] [phone] Christiane Sanders NP Coronary artery disease involving lovelock coronary artery of lovelock heart without angina pectoris (Primary Dx); Atypical chest pain; Chronic heart failure with preserved ejection fraction ([facility]/HCC); Hypertension, unspecified type; Hyperlipidemia, unspecified hyperlipidemia type 11/26/2024 Telephone Internal Medicine - [place] [address] [phone] Dionisio Romano MD [facility] call 11/24/[address] [place] [phone] Michael Torrez MD Med Dose Change 11/13/2024 7:47 AM EST - 11/13/2024 11:59 PM EST Hospital Encounter [facility] [address] [place] [phone] Category 3 mammography result with short follow-up interval suggested for probably benign finding Discharge Disposition: Home or Self Care 11/13/2024 Telephone Internal Medicine [facility] [address] [address] Bernice Elizondo [place] 10/31/2024 10:00 AM EST Office Visit Internal Medicine [facility] 175 [facility] [address] [place] [address] Dionisio Romano MD Fungemia (Primary Dx); Diabetes mellitus type 2 with neurological manifestations ([facility]); S/P cholecystectomy 10/15/2024 Telephone Internal Medicine - [address] [place] [address] Dionisio Romano MD Hypertension from Last 3 Months Immunizations Name Administration [...] PROCEDURE: HISTORICAL ROTATOR CUFF REPAIR APPENDECTOMY PROCEDURE: OR APPENDECTOMY CATARACT EXTRACTION PROCEDURE: HISTORICAL CATARACT REMOVAL OTHER SURGICAL HISTORY PROCEDURE: ---- OTHER ----; COMMENT: venous ligation LAPAROSCOPIC GASTRIC BANDING PROCEDURE: LAP ADJUSTABLE GASTRIC BAND CORONARY ARTERY BYPASS GRAFT Medical History Medical History Date Comments Diabetic neuropathy (CMS/[facility]) 02/08/2017 DX :Diabetic neuropathy ([facility]) Hyperlipidemia 02/08/2017 DX:Hyperlipidemi a Hypertension 02/08/2017 DX:Hypertension Diabetic retinopathy ([facility]) 02/08/2017 D X:Diabetic retinopathy ([facility]) Depression 02/08/2017 DX:Depression History of adjustable gastric banding 02/13/2017 DX:History of adjustable gastric banding Diabetes mellitus type 2 wit h neurological manifestations (CMS/[facility]) 02/13/2017 DX:Diabetes ehsan itus type 2 with neurological manifestations (HCC) Type 2 diabetes mellitus wit h eye manifestations ([facility]/HCC) 02/13/2017 DX:Type 2 diabetes mellitus with eye manifestations (HCC) Type 2 diabetes mellitus wit h cataract ([facility]) 02/13/2017 DX:Type 2 diabetes mellitus with cataract (HCC) Allergic rhinitis 02/13/2017 DX:Allergic rh initis GERD [...] Insulin dependent type 2 destini betes mellitus ([facility]) DX:Insulin dependent type 2 diabetes mellitus ([facility]) RUQ pain DX:RUQ pain Anemia Diabetes ([facility]) Family History Medical History Relation Name Comments [...] on file Sexual Orientation Not on file Obstetrics History Para Term AB IAB SAB Ectopic Multiple Livin g Live Births 3 Last Filed Vital Signs Vital Sign Reading Time Taken Comments Blood Pressure 160/69 12/25/2024 8:24 AM EST Pulse 58 12/16/2024 9:12 AM EST Temperature 36.2 ??C (97.1 ??F) 12/16/2024 9:12 AM ES T Respiratory Rate - - Oxygen Saturation 98% 12/16/2024 9:12 AM EST Inhaled Oxygen Concentration - - Weight 98 kg (216 lb) 12/25/2024 8:12 AM EST Height 167.6 cm (5' 6 ) 12/25/2024 8:12 AM EST Body Mass Index 34.86 12/25/2024 8:12 AM EST Plan of Treatment Upcoming Encounters Date Type Department Care Team (Late st Contact Info) Description 04/10/2025 11:30 AM EDT Office Visit Internal Medicine - [place] [address] [place] [address] Dionisio Romano MD [address] [place] [address] Health Maintenance Due Date Last Done Comments Zoster Vaccines (3 of 3) 01/23/2020 020, 09/19/2013, 11/05/2012 Falls Risk Assessment 10/28/2022 Social Influencers of [...] Annual BMP Blood Test 12/16/2025 12/16/2024, 03/05/2024 Depression Screening 01/08/2026 01/08/2025 Breast Cancer Screening 11/13/2026 11/13/20 24, 05/07/2024, 11/05/2023, Additional history exists Cholesterol Screening (Lipid Panel) 09/08/2029 09/08/2024, 06/01/2021 Osteoporosis Screening (Bone Density Screening) 12/05/2032 12/05/2022, 01/28/2020 DTaP,Tdap,and Td Vaccines (2 - Td or Tdap) 06/21/2033 06/21/2023 Colorectal Cancer Screening: Colonoscopy 04/16/2034 04/16/2024 Pneumococcal Vaccine: 50+ Years Completed 02/05/2018, 01/02/2017 Hepatitis C Screening [...] patient's age to complete this topic Meningococcal B Vacine Aged Out No lo nger eligible based on patient's age to complete [...] 10:26 AM EST Coronary artery disease involving lovelock coronary artery of lovelock heart without angina pectoris Atypical chest pain BASIC METABOLIC PANEL Routine 12/16/2024 9:48 AM EST 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) Primary hypertension MG MAMMO DIGITAL DIAGNOSTIC W ISAAC BILAT Routine 11/13/2024 8:23 AM EST Category 3 mammography result with short follow-up interval suggested for probably benign finding DIABETES EYE EXAM Routine 05/12/2024 COLONOSCOPY Routine 04/16/2024 DIABETES FOOT EXAM Routine 10/09/2023 URINE ALBUMIN CREATININE RATIO Routine 06/21/2023 HEPATITIS C SCREENING Routine 02/27/2023 [facility] DEXA AXIAL SKELETON Routine 12/05/2022 5:38 PM EST Encounter for screening for osteoporosis HEMOGLOBIN A1C Routine 06/01/2021 LIPID PANEL Routine 06/01/2021 from Last 3 Months or Most Recently Relevant to Health Maintenance Results * NM LEXISCAN STRESS TEST W/ [...] NP CV STRESS PROCEDURES Final Res ult * (ABNORMAL) Basic metabolic panel (12/16/2024 9:48 AM EST) Sodium 137 133 - 145 mmol/L LAB CHEMISTRY METHOD 12/16/2024 2:56 PM [facility] Potassium 4.1 3.5 - 5.5 mmol/L LAB CHEMISTRY METHOD 12/16/2024 2:56 PM [facility] Chloride 104 96 - 110 mmol/L LAB CHEMISTRY METHOD 12/16/2024 2:56 PM [facility] CO2 29 21 - 32 mmol/L LAB CHEMISTRY METHOD 12/16/2024 2:56 PM [facility] Anion Gap 4 3 - 11 LAB CHEMISTRY METHOD 12/16/2024 2:56 PM [facility] Glucose 223(H) 70 - 100 mg/dL LAB CHEMISTRY METHOD 12/16/2024 2:56 PM [facility] BUN 36(H) 5 - 25 mg/dL LAB CHEMISTRY METHOD 12/16/2024 2:56 PM [facility] Creatinine 2.33(H) 0.50 - 1.10 mg/dL LAB CHEMISTRY METHOD 12/16/2024 2:56 PM [facility] eGFR 22(L) >=60 mL/min/1. 73m2 LAB CHEMISTRY METHOD 12/16/2024 2:56 PM [facility] Comment:Calculation based on the??Chronic Kidney Disease Epidemiology Collaboration (CKD-EPI) equation refit??without adjustment for race. BUN/Creatinine Ratio 15.5 LAB CHEMISTRY METHOD 12/16/2024 2:56 PM [facility] Calcium 9.2 8.5 - 10.5 mg/dL LAB CHEMISTRY METHOD 12/16/2024 2:56 PM [facility] Blood Venous blood specimen / Unknown Venipuncture / Unknown 12/16/2024 9:48 AM EST 12/16/2024 9:48 AM EST us Dionisio Romano MD LAB BLOOD ORDERABLES Final Res ult [facility] [address] [place] [address], * MG Mammo Digital Diagnostic w Isaac bilat (11/13/2024 8:23 AM EST) Anatomical Region Laterality Modality Breast Bilateral Mammography 11/13/2024 8:11 AM EST Impressions 11/13/2024 8:21 AM EST Benign. BI-RADS CATEGORY: 2 - BENIGN RECOMMENDATION: Screening bilateral mammogram is recommended in 1 year. Mammo Location: [facility], [address] [place] [id number] -------- FINAL REPORT -------- Dictated By: Daniel Gregory Dictated Date: 11/13/2024 08:11 ET Assigned Physician: Daniel Gregory Reviewed and Electronically Signed By: Daniel Gregory Signed Date: 11/13/2024 08:21 ET Workstation ID: [id number] Transcribed By: Self Edit Transcribed Date: 11/13/2024 [...] and CC projection is performed in the [employer] 2000-D unit. ??Computer aided detection utilizing the [...] MLO and CC projection is performed in thenubelo Sen[employer]he 2000-D unit. Computer aided detection utilizing the Mob [employer] was utilized. FINDINGS: The breasts are again [...] is recommended in 1 year. Mammo Location: [facility], [address] [place] [id number] -------- FINAL REPORT -------- Dictated By: Daniel Gregory Dictated Date: 11/13/2024 08:11 ET Assigned Physician: Daniel Gregory Reviewed and Electronically Signed By: Daniel Gregory Signed Date: 11/13/2024 08:21 ET Workstation ID: [id number] Transcribed By: Self Edit Transcribed Date: 11/13/2024 08:11 ET Result [facility] Dionisio Romano MD IMG BI PROCEDURES Final Result * Diabetes Eye Exam (05/12/2024) [facility] Diabetes: Annual Retina Eye Exam abstracted Result [facility] Provider HEALTH MAINTENANCE Final Result * Colonoscopy (04/16/2024) [facility] Colonoscopy no interpretation , abstracted Anatomical Region Laterality Modality Other [facility] Provider HEALTH MAINTENANCE Final Result * Diabetes Foot Exam (10/09/2023) [facility] Diabetes: Annual Foot Exam abstracted [facility] Provider HEALTH MAINTENANCE Final Result * Urine Albumin Creatinine Ratio (06/21/2023) [facility] Urine Albumin Creatinine Ratio abstracted [facility] Provider HEALTH MAINTENANCE Final Result * Hepatitis C Screening (02/27/2023) Hepatitis C Screening abstracted Historical Provider HEALTH MAINTENANCE Final Result * [facility] DEXA AXIAL SKELETON (12/05/2022 5:38 PM EST) Anatomical Region Laterality Modality Mammography 12/05/2022 11:1 5 AM EST Narrative 12/05/2022 5:38 PM EST [facility] Diagnostic Imaging Department [address] [place] [address] Patient: ??TALIA WATTS ?/Age/Sex: 1950 - 71 - F Unit#: ??[id number] ? Location/Status: ??SPDIMAM/REG CLI ? Mnemonic/Ordering Site: ??MAMDEXAAX/SPMAM Ordering Physician: ??DIONISIO ROMANO MD [facility] Dexa Axial Skeleton - 12/05/22 - History: Low estrogen state due to menopause. On omeprazole. Comparison: 08/10/14 Findings: Bone densitometry is performed utilizing dual energy x-ray absorptiometry (DXA) in the [employer] unit. The lumbar spine and proximal femora [...] 0.1 percent. IMPRESSION: Normal bone mineral density. [id number] Dictating Physician: ??LATRICE SIMS MD Electronically Signed by: ??LATRICE SIMS MD Dic Date/Time: ??12/05/221736 Sign date/Time: ??12/05/221737 Procedure Note Latrice Sims MD - 12/21/2023 [facility] Diagnostic Imaging Department [address] [place] [address] Patient: TALIA WATTS /Age/Sex: 1950 - 71 - F Unit#: [id number] Location/Status: [facility] Mnemonic/Ordering Site: [facility] Ordering Physician: DIONISIO ROMANO MD [facility] Dexa Axial Skeleton - 12/05/22 - History: Low estrogen state due to menopause. On omeprazole. Comparison: 08/10/14 Findings: Bone densitometry is performed utilizing dual energy x-ray absorptiometry(DXA) in the [employer] unit. The lumbar spine and proximal femora [...] 0.1 percent. IMPRESSION: Normal bone mineral density. [id number] Dictating Physician: LATRICE SIMS MD Electronically Signed by: LATRICE SIMS MD Dic Date/Time: 12/05/221736 Sign date/Time: 12/05/221737 Dionisio Romano MD IMG BI PROCEDURES Final Result * (ABNORMAL) Hemoglobin A1c (06/01/2021) Pathologist [facility] Hemoglobin A1C 9.1(A) <=6.5 % Blood Venous blood specimen / Unknown Historical Provider LAB BLOOD ORDERABLES Adilia l Result * Lipid panel (06/01/2021) Pathologist [facility] LDL/HDL Ratio 3 0 - 4 Triglycerides 125 0 - 150 mg/dL Cholesterol 142 0 - 200 mg/dL HDL 57 >=40 mg/dL LDL Cholesterol 60 0 - 100 mg/dL Blood Venous blood specimen / Unknown Historical Provider LAB BLOOD ORDERABLES Adilia l Result from Last 3 Months or Most Recently Relevant to Health Maintenance Insurance [facility] MEDIC[facility] Member Subscriber Plan / Payer (Ef fective 2023-Present) Name:Talia Watts Relation to Subscriber:Self Name:Talia Watts Payer ID:[id number] Group ID:[id number] Type:Not on file Address: [address] [place] [address] Care Teams Urgent Care Physician Assistant Relationship Specialty Start Date End Date Dionisio Romano MD [address] [facility] [address] [place] [address] PCP - General Internal Medicine 02/25/13
--- OUTSIDE RECORDS SUMMARY | 2025-01-14 10:54 | XMS_ITS | Data Portability ---
Author Organization [employer] [facility] [employer] Address [address] [place] [phone] Care Team Providers Care Senior Software Systems Engineer Name Role Phone [facility] Primary Care Provider [facility] OTHER Assessment Encounter Date Assessment Date Assessment LastModified by Organization Details LastModified Time 10/02/2024 10/02/2024 As noted, we ochoa haynes called to see this patient regarding concerns of shob and weakness. Evaluation in the field was performed by my title i paraprofessional colleague, as noted above, I provided real-time [...] SNOMED-CT Code Diagnosis ICD10 Code Diagnosis Note [id number] Brina Hurd MD [facility] - [address] [phone] 10/02/2024 19:18:11 10/02/2024 23:20:15 Postoperative visit [id number] Z48.89 Dyspnea [id number] R06.00 Health Concerns Section Related Observation LastModified by Organization Detai ls LastModified Time None Recorded Concern Status LastModified by Organization Details LastModified Time None Recorded Advance Directives Directive None Recorded Payers Encounter Date Sequence Insurance Name Policy Number Policy Braun Covered Member ID Braun Member ID Guarantor Name 10/02/2024 1 [facility] - DOS ON OR AFTER 2023 - DUAL ELIGIBLE - USP OPTIONS AND ONE CARE (MEDICARE REPLACEMENT/ADV ANTAGE - HMO) Milla Guzman [id number] Milla Guzman Notes Date Note Type Note [...] 2, Cholecystectomy Comments: gallbladder removal on Sunday. Baxter sob since d/c from hospital yesterday. 02 [...] ..................... ..................... ..................... ..................... ..................... ..................... ............... Trench Pipe Layer Note From Tyler Milligan: [id number] dispatched to [...] she recently had her gallbladder removed at [facility] on 09/30, patient reports that the [...] vital signs obtained as noted. [facility] [place] and advised that the patient should go to the hospital to R/O a pulmonary embolism. Patient agreed to go to the hospital and AL called 911 for patient. Patient report given to transporting ambulance without incident. ..................... ..................... ..................... ..................... ..................... ..................... ............... [facility] Consulted: Brina Hurd ..................... ..................... ..................... ..................... ..................... ..................... ............... Disposition: Fulfilled Brina Hurd MD [address] [facility],[address], [place], [address], [facility] 10/02/2024 19:57:17 OBGyn Episode No OBEpisode recorded.
--- OUTSIDE RECORDS SUMMARY | 2025-01-14 10:55 | XMS_ITS | Continuity of Care Document ---
Author Organization [facility]. If a dditional information is needed, contact Health Information Management at [phone] Address [address] [place] [address] Phone Care Team Providers Care Shingle Catcher Name Role Phone Unavailable Unavailable Unavailable Unavailable Unavailable Unavailable Unavailable Unavailable Unavailable Unavailable Unavailable Unavailable Unavailable Unavailable Unavailable Unavailable Unavailable Unavailable Problems Disorder of toe Onset:16-Mar-2024 Talha Ackerman APRN Chest pain Onset:11-Jan-2015 Allergies and Adverse Reactions No Known Drug Intolerances(A llergy) Onset: 11-Jan-2015 Reaction:UNKNOWN Social History Smoking Status Never smoked tobacco Recorded: 16-Mar-2024 Vital Signs 16-Mar-2024 13:32 Shceodjzfue61.7f Comments:97.7 Pulse70 Comments:70 Respiratory Rate16 Comments:16 O2 SAT99% Comments:99 BP Ecchcbvw577nj[Hg] Comments:16 4 BP Wobubjzzf20hs[Hg] Comments:74 Height5.5[ft_us] Comments:5 Zecoog07.455kg Comments:95.455 16-Mar-2024 13:32 FKB81et/m2 Comments:34.0 Encounters Emergency Encounter Reason:RIGHT FOOT TOE PAIN Encounter Diagnosis:Exposure to other specified factors, initial encounter,Blister (nonthermal), right great toe, initial encounter 16-Mar-2024 13:[id number] 13:50 Deepika Feng MD (Attending) [facility] Discharge Disposition:Discharged to home or self care (routine discharge) ? ? ? Talha Ackerman APRN-16-Mar-2024 [facility] ([facility])EMERGENCY PROVIDER REPORTREPORT#:[id number] REPORT STATUS: SignedDATE:03/16/24 TIME: 1333PATIENT: TALIA WATTS UNIT #: [id number]#: [id number] ROOM/BED:AGE: 73 SEX: F PCP PHYS: Undefined ProviderSERVICE AUTHOR: TINO HIGHTOWER* ALL edits or amendments must be made on the electronic/computer document *TINO HIGHTOWER 03/16/24 1333:HPI-General IllnessGeneralInitial Greet Date/Time 03/16/24 1310PresentationChief Complaint __ (Right great toe blister)Free Text HPI NotesFree Text HPI [id number]-[id number]-udi female presents emergency department today for reports of a blisterunderneath her right great toe. Patient reports she has diabetes has been usingmedihoney reports she is from [place] it has not seen her primary care [...] the closest emergencydepartment or a call to 911.PETR ARTEAGA 03/17/24 0955:Patient Discharge DepartureDischarge/Care PlanReferralsProvider Referral: NO PRIMARY OR FAMILY PHYSICIANSupervising Physician Note MidLv Saw Pt AloneI have reviewed the PA/PET CREMATORY WORKER's note and plan of care. I was [...] patient's visit. at 1401 at 0957RPT #: [id number] OF REPORT Plan of Treatment Based on [...]
--- OUTSIDE RECORDS SUMMARY | 2025-01-14 10:55 | XMS_ITS | Continuity of Care Document ---
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 Name Role Phone Rosalina AVILES, Diana Brunilda Primary Care Physician Encounter [facility] [id number] Date(s): 12/31/24 - 01/01/[address] [address]- Encounter Diagnosis Acute exacerbation of CHF (congestive heart failure)(Final) - 12/31/24 Discharge Disposition: A-D/C Home Attending Physician: Terry Cross MD Admitting Physician: Jay Lemons MD Referring Physician: Not on Staff, Referring MD Encounter Type: Disch IP Allergies, Adverse Reactions, Alerts No Known Allergies Immunizations Given and Recorded Vaccine Date Status Refusal Reason influenza virus vaccine, inactivated 06/23/22 Anthony rded influenza virus vaccine, inactivated 07/15/21 Anthony rded influenza virus vaccine, inactivated 08/18/20 Anthony rded influenza virus vaccine, inactivated 08/05/20 Anthony rded influenza virus vaccine, inactivated 09/28/18 Give n influenza virus vaccine, inactivated 09/24/15 Anthony rded SARS-CoV-2 mRNA ([id number]) vax 06/23/22 Recorded SARS-CoV-2 (COVID-19) mRNA BNT-[id number] [...] Date: 03/08/23 Status: Ordered Repeat number: 1 Coreg 25 mg oral tablet 12.5 mg, 0.5, tablet, By Mouth, 2 times a day, # 30 tablet, Refills 0, Tot. Refills 0, Maintenance,10/27/24 3:02:00 PM EST, Route to Pharmacy Electronically, [id number], Partial fillupon patient request if the prescription is for a schedule II opioid drug., 168, cm, 10/27/24 11:12:00 EST, Height, 101, kg, 10/23/24 3:54:00 EST, Dry Weight Start Date: 10/27/24 Stop Date: 11/26/24 Status: Ordered Quantity: 30.0 Unit: tablet Repeat number: 1 Docusate/Senna Tablet [...] 3:13:00 PM EST, Route to Pharmacy Electronically, [facility], Partial fill upon patient request [...] Refills, Maintenance, 11/24/23 3:15:00 PM EST, Tablet, [facility], Partial fill upon patient [...] number: 1 Lasix 40 mg oral tablet 80 mg, 2, tablet, By Mouth, Daily, # 30 tablet, Refills 0, Tot. Refills 0, Maintenance, 10/27/24 2:51:00 PM EST, Do Not Route, Partial fill upon patient request if the prescription is for a schedule II opioid drug. Start Date: 10/27/24 Status: Ordered Quantity: 30.0 Unit: tablet Repeat number: 1 methenamine hippurate 1 gm oral tablet 1 tablet = 1 Gm, By Mouth, 2 times a day, 0 Refills, Maintenance, 01/12/16 1:14:06 PM EST Start Date: 01/12/16 Status: Ordered Repeat number: 1 NIFEdipine 60 mg oral tablet, extended release 60 mg, By Mouth, Daily, # 30 tablet, Refills 0, Tot. Refills 0, Maintenance, 11/24/23 3:13:00 PM EST,Route to Pharmacy Electronically, [facility], Partial fill upon patient [...] Date: 10/21/24 Status: Ordered Repeat number: 1 Zithromax Z-Ace 250 mg oral tablet 1 pack/packet, By Mouth, Once, # 6 tablet, 0 Refills, Soft Stop, 01/01/25 9:55:00 AM EST, Tablet, [facility] #[id number], Partial fill upon patient request if the prescription is for a schedule II opioid drug., 168, cm, 12/30/24 22:27:00 EST, Height, 98.5, kg, 12/30/24 22:27:00 EST, Dry Weight Start Date: 01/01/25 Status: Ordered Quantity: 6.0 Unit: tablet Repeat number: 1 Problem List Condition Confirmation [...] class I Confirmed Active Retinopathy Confirmed Active Results Radiology Reports * Exam Date Time Procedure Performing Provider Status 01/01/25 7:45 AM US Doppler Ext Lower Venous Bilat Brie Earl; Auth (Verified) Notes: (US Doppler Ext Lower Venous Bilat) Reason For Exam: Pain/Tenderness Extremities RESULT: US Doppler Ext Lower Venous Bilat US Doppler Ext Lower Venous Bilat Reason: Pain Tenderness Extremities; Clinical Question(s): Thrombosis COMPARISON: 12/21/2022. IMAGING TECHNIQUE: Ultrasound of the veins from [...] patent without evidence of thrombosis. OTHER FINDINGS: There is diffuse calf edema. IMPRESSION: No evidence of deep venous thrombosis. WSN: [id number] Ordering Physician: Peter Whiteside Dictated By: Clemente Torres MD Dictated Date/Time: 01/01/25 9:24 am Reviewed By: Clemente Torres MD Signed By: Clemente Torres MD Signed Date/Time: 01/01/25 9:24 am Transcribed By: SADIQ Transcribed Date/Time: 01/01/25 8:32 am * Exam Date Time Procedure Performing Provider Status 12/31/24 1:35 AM Chest 2 Views Frontal and Lat Stoney Brunner; Auth (Verified) Notes: (Chest 2 Views Frontal and Lat) Reason For Exam: Chest Pain;Other: RESULT: Chest 2 Views Frontal and Lat Chest 2 Views Frontal and Lat Hx of Present Illness: SOB; Reason: Other:; Chest Pain; Clinical Question(s): Other: COMPARISON: 11/23/2024 FINDINGS: LINES AND TUBES: None. LUNGS AND PLEURA: Clear lungs. Normal pulmonary vascularity. No pneumothorax. Small right pleural effusion seen on the lateral view. HEART, MEDIASTINUM AND LARISSA: Moderate prominence of the cardiac silhouette. Normal mediastinal and hilar contour. BONES AND SOFT TISSUES: No acute abnormality. Status post median sternotomy. Partially visualized gastric lap band, suboptimally assessed. IMPRESSION: Small right pleural effusion. Cardiomegaly. I have personally reviewed the images and I agree with this report. WSN: [id number] Ordering Physician: Christiano Holbrook Dictated By: Jennie Jay DO Dictated Date/Time: 12/31/24 10:30 a Reviewed By: Dulce Macdonald MD Signed By: Dulce Macdonald MD Signed Date/Time: 12/31/24 10:35 am Transcribed By: SADIQ Transcribed Date/Time: 12/31/24 8:20 am Vital Signs Most recent to oldest [Reference Range]: 1 2 3 Height 168 cm (01/01/25 10:48 AM) 168 cm (12/30/24 10:27 PM) Weight 98 kg (01/01/25 10:48 AM) 98.5 kg (12/30/24 10:27 PM) Oxygen Saturation [94-100 %] 100 % (01/01/25 1:02 PM) 99 % (01/01/25 10:48 AM) 100 % (01/01/25 6:10 AM) Pulse Rate [55-90 bpm] 61 bpm (01/01/25 1:02 PM) 60 bpm (01/01/25 10:48 AM) 64 bpm (01/01/25 6:10 AM) Body Mass Index [18.5-24.99 kg/m2] 34.72 kg/m2 *>HHI* (01/01/25 10:48 AM) 34.9 kg/m2 *>HHI* (12/30/24 10:27 PM) Blood Pressure [90-138/55-84 mm Hg] 168/83mm Hg *H* (01/01/25 1:02 PM) 149/56mm Hg *H* (01/01/25 10:48 AM) 138/52mm Hg (01/01/25 6:10 AM) Respiratory Rate [16-30 br/min] 17 br/min (01/01/25 1:02 PM) 22 br/min (01/01/25 10:48 AM) 15 br/min *L* (01/01/25 6:10 AM) Temperature [96.8-100.4 DegF] 98.5 DegF (01/01/25 4:23 AM) 98.3 DegF (12/31/24 8:25 PM) 98.7 DegF (12/31/24 6:17 AM) Mode of Delivery (Oxygen) Room air (01/01/25 1:02 PM) Room air (01/01/25 10:48 AM) Room air (01/01/25 6:10 AM) Blood pressure sites Arm, right (01/01/25 1:02 PM) Arm, right (01/01/25 10:48 AM) Arm, right (12/31/24 6:17 AM) Temperature Route Oral (01/01/25 4:23 AM) Oral (12/31/24 8:25 PM) Oral (12/31/24 6:17 AM) Dry Weight 98 kg (01/01/25 10:48 AM) 98.5 kg (12/30/24 10:27 PM) Weight Obtained Via Patient/family stated (01/01/25 10:48 AM) Standing scale (12/30/24 10:27 PM) Dry Weight Obtained Via Patient/family stated (01/01/25 10:48 AM) Standing scale (12/30/24 10:27 PM) Social History Social History Type Response Smoking Status Never smoker entered on: 09/14/15 Sex Sex Representation Female (finding) Admission evaluation note * Peter Whiteside MD: PERFORM, MODIFY Event Display: Admission Note Authored Date: [id number] Patient: ??ALEXY WATTS ? Age:??74 Years?Sex:??Female?:??1950?? History of Present Illness Patient presents with acute dyspnea and congestion. Symptoms began approximately 5 days ago with feeling sick and congested, generalized edema, particularly in the lower extremities. Patient reports decreased oral intake. ?? Patient reports headache which she associates with hypotension and reports home diastolic blood pressure of 43 mmHg. ?? Patient also infrequent voiding despite regular diuretic use. ?? In addition, patient reports chronic cough and intermittent leg pain since the previous summer, with negative ultrasound for deep vein thrombosis but noted 2 spots of unclear significance. ?? Patient denies pleuritic chest pain but reports pain in the ribcage with coughing. ?? In the emergency department: - Temperature: 97.5??F - Blood pressure: 126/42 mmHg - Heart rate: 62 bpm - Oxygen saturation: 98% on room air Patient was found to have hyponatremia (127 mEq/L), hypokalemia (3.2 mEq/L), and elevated creatinine (3.2 mg/dL from baseline of 2.3 mg/dL). Troponin was stable at 47 and 45 ng/L. Chest x-ray revealed small right-sided pleural effusion.? She was given lasix 20mg IV x1 and reports brisk urine output. ? ROS: As above, rest of full review negative. Objective Temperature?97.9 ?(03:50) Systolic Blood Pressure?149 ?(06:17) Diastolic Blood Pressure?61 ?(06:17) Pulse?65 ?(06:17) SpO2?100 ?(06:17) Respiratory Rate?15 ?(06:17) ?? Physical Exam GEN: Comfortable in bed HEENT: Moist membranes HEART: Warm extremities LUNGS: Breathing comfortably room air ABD: Soft, nontender : No heath EXT: Warm, 1+ edema bilaterally NEURO: Alert, oriented x3 PSYCH: Calm and cooperative Assessment/Plan Assessment:??This is a 73-year-old female with history of CAD status post CABG, recent cholecystectomy complicated by intraabdominal infection,??heart failure with preserved ejection fraction, CKD, diabetes, presenting wtih shortness of breath. ?? Acute exacerbation of CHF (congestive heart failure) (I50.9):?? 5 days of progressive dyspnea with??pleural effusion on CXR and inabillity to lie flat suggest CHF exacerbation. No pleuritic pain, has rib cage pain with coughing, leg pain is chronic - I don't suspect DVT despite D-dimer 1.3. Appears she has been adherent to lasix 40mg bid.??JERZY (below) is??likely??cardiorenal. Trops are??flat??-> no signs of ACS contributing. - lasix??40mg IV BID (takes 80mg PO once daily) - trend lytes - I/O - cont carvedilol - cont??hydralazine - cont nifedipine? JERZY: CKD (chronic kidney disease) (N18.9):?? Like cardiorenal. - diurersis as above ?? CAD (coronary artery disease) (I25.10):?? - cont??asa - cont statin - cont carvedilol ?? Diabetes: - cont Lantus 18 units HS - sliding scale ?? GERD: - cont ppi ? DIEt - regular CODE - presumed full DVT - heparin Histories Past Medical History/Problem List Active Problems(14) Atypical chest pain Candidemia Cholecystitis CKD stage 4 Fall GERD (gastroesophageal reflux disease) History of cholecystectomy HTN (hypertension) Hypercholesterolemia Insulin dependent type 2 diabetes mellitus Knee pain, left Neuropathy Obese class I Retinopathy ? Medications Home Medications Acetaminophen (acetaminophen 325 mg oral tablet)??975 Milligram By Mouth Every 6 hours Albuterol (Albuterol (Eqv-ProAir HFA) 90 mcg/inh inhalation aerosol)??INHALE 2 PUFFS INTO THE LUNGSEVERY 6 HOURS NEEDED FOR COUGH OR WHEEZING OR SHORTNESS OF BREATH Atorvastatin (atorvastatin 80 mg oral tablet)??1 tab(s) 80 Milligram By Mouth Daily at bedtime Carvedilol (Coreg 25 mg oral tablet)??25 Milligram By Mouth 2 times a day for 30 Days Cholecalciferol (Vitamin D3 2000 intl units oral capsule)??TAKE 1 CAPSULE BY MOUTH DAILY Docusate-Senna (Docusate/Senna Tablet)??2 tab(s) By Mouth Daily Durable Medical Equipment (basic metabolic panel)??See Instructions BMP to be done once between 11/26/23-11/30/23. ICD 10: [id number] send results to Dr. Diana Romano Ferrous Sulfate (ferrous sulfate 325 mg oral enteric coated tablet)??325 Milligram By Mouth Every Sunday, Sunday and Sunday may take with food to minimize abdominal discomfort Furosemide (Lasix 40 mg oral tablet)??40 Milligram 1 tablet By Mouth 2 times a day hydrALAZINE (hydrALAZINE 50 mg oral tablet)??1 tab(s) 50 Milligram By Mouth 3 times a day Insulin Glargine (Lantus Inj)??18 unit(s) Subcutaneous Injection Every 24 hours Insulin Lispro (insulin lispro 100 u/ml subcutaneous injection)??2-10 units Subcutaneous Injection 3 times a day before meals << Sliding Scale Comments >>120 - 169 ?? 2 units Call if lessthan [id number] - [phone] ?? 4 units 220 - 269 ?? 6 units 270 - 319 ?? 8 units 320 - 369 ?? 10 units Call if greater than 400<< Sliding Scale Comments >> Lidocaine Topical (lidocaine 5% topical film)??Topically Daily Methenamine (methenamine hippurate 1 gm oral tablet)??1 tab(s) 1 gram By Mouth 2 times a day Metolazone (metolazone 2.5 mg oral tablet)??TAKE 1 TABLET BY MOUTH DAILY NEEDED FOR SWELLING Multivitamin??By Mouth Daily NIFEdipine (NIFEdipine 60 mg oral tablet, extended release)??60 Milligram By Mouth Daily Pantoprazole (pantoprazole 40 mg oral delayed release tablet)??1 tab(s) 40 Milligram By Mouth Daily ? Inpatient Medications Medications (15) Active SCHEDULED: (2) Insulin Lispro 100 units/mL Inj (Insulin LISPRO Sliding Scale) ??2-10 units, Subcutaneous Injection, 3 times a day before meals NaCl 0.9% Flush 3ml (NaCL 0.9% Flush) ??3 mL, IV Push, Every 8 hours CONTINUOUS: (0) PRN: (13) Acetaminophen 325 mg Tablet (Acetaminophen Tablet) ??650 mg, By Mouth, Every 4 hours Dextromethorphan-Guaifenesin 20 mg-200 mg/10 mL Liqu UD (Robitussin DM Liquid) ??10 mL, By Mouth, Every 4 hours Dextrose Inj Syringe (Dextrose 50% Inj Syringe (25Gm)) ??12.5 Gm, IV Push Slowly, Every 20 minutes Dextrose Inj Syringe (Dextrose 50% Inj Syringe (25Gm)) ??25 Gm, IV Push Slowly, Every 15 minutes Docusate Sodium 100 mg Capsule (Docusate Sodium Capsule) ??100 mg 1 capsule, By Mouth, 2 times a day Glucagon 1 mg Inj (Glucagon Inj) ??1 mg, Intramuscular, Once Glucose 40% Gel (15 Gm) (Glucose Gel) ??15 Gm, By Mouth, Every 20 minutes Glucose 40% Gel (15 Gm) (Glucose Gel) ??30 Gm, By Mouth, Every 20 minutes Melatonin 3 mg Tablet (Melatonin Tablet) ??3 mg, By Mouth, Daily at bedtime NaCl 0.9% Flush 3ml (NaCL 0.9% Flush) ??3 mL, IV Push, Every 8 hours Polyethylene Glycol 17 Gm Powder (MiraLax Powder) ??17 Gm 1 pack/packet, By Mouth, Daily Senna Tablet ??8.6 mg 1 tablet, By Mouth, 2 times a day Simethicone 80 mg Chewable Tablet (Simethicone Tablet) ??80 mg, Chew, 3 times a day ? EKG study * Event Display: EKG Authored Date: * Event Display: ECG 12-Lead Authored Date: Please click on pdf link to open report * Event Display: ECG 12-Lead Authored Date: Ventricular Rate: 63 BPM Atrial Rate: 63 BPM P-R Interval: 148 ms QRS Duration: 92 ms Q-T Interval: 450 ms QTC Calculation(Bazett): 460 ms P [place]wood: 25 degrees R [place]wood: -48 degrees T [place]wood: 59 degrees Normal sinus rhythm Left anterior fascicular block Cannot rule out Anterior infarct , age undetermined Abnormal ECG When compared with ECG of 23-Nov-2024 14:16, Nonspecific T wave abnormality no longer evident in Inferior leads Confirmed by JAQUI TORRES MD ([id number]) on 2024 9:11:54 AM [place]: JAQUI TORRES MD Note * [place] AVILES, Terry: PERFORM Event Display: Discharge/Transfer Note Hospital Authored Date: [id number] Patient: ??ALEXY WATTS ? Age:??74 Years?Sex:??Female?:??1950?? Patient Information Discharge Location: [facility] Primary Care Physician: Diana Romano MD Admit Date/Time: 2024 07:02 Discharge Disposition Discharge Disposition: Home with Home Health Discharge Diagnosis Acute exacerbation of CHF (congestive heart failure) (I50.9) CAD (coronary artery disease) (I25.10) CKD (chronic kidney disease) (N18.9) URTI (acute upper respiratory infection) (J06.9) _ Discharge Medications Acetaminophen (acetaminophen 325 mg oral tablet)??975 Milligram By Mouth Every 6 hours Albuterol (Albuterol (Eqv-ProAir HFA) 90 mcg/inh inhalation aerosol)??INHALE 2 PUFFS INTO THE LUNGSEVERY 6 HOURS NEEDED FOR COUGH OR WHEEZING OR SHORTNESS OF BREATH Atorvastatin (atorvastatin 80 mg oral tablet)??1 tab(s) 80 Milligram By Mouth Daily at bedtime Azithromycin (Zithromax Z-Ace 250 mg oral tablet)??1 pack/packet By Mouth Once Carvedilol (Coreg 25 mg oral tablet)??12.5 Milligram 0.5 tablet By Mouth 2 times a day for 30 Days Cholecalciferol (Vitamin D3 2000 intl units oral capsule)??TAKE 1 CAPSULE BY MOUTH DAILY Docusate-Senna (Docusate/Senna Tablet)??2 tab(s) By Mouth Daily Ferrous Sulfate (ferrous sulfate 325 mg oral enteric coated tablet)??325 Milligram By Mouth Every Sunday, Sunday and Sunday may take with food to minimize abdominal discomfort Furosemide (Lasix 40 mg oral tablet)??80 Milligram 2 tablet By Mouth Daily hydrALAZINE (hydrALAZINE 50 mg oral tablet)??1 tab(s) 50 Milligram By Mouth 3 times a day Insulin Glargine (Lantus Inj)??18 unit(s) Subcutaneous Injection Every 24 hours Insulin Lispro (insulin lispro 100 u/ml subcutaneous injection)??2-10 units Subcutaneous Injection 3 times a day before meals << Sliding Scale Comments >>120 - 169 ?? 2 units Call if lessthan [id number] - [phone] ?? 4 units 220 - 269 ?? 6 units 270 - 319 ?? 8 units 320 - 369 ?? 10 units Call if greater than 400<< Sliding Scale Comments >> Methenamine (methenamine hippurate 1 gm oral tablet)??1 tab(s) 1 gram By Mouth 2 times a day NIFEdipine (NIFEdipine 60 mg oral tablet, extended release)??60 Milligram By Mouth Daily Pantoprazole (pantoprazole 40 mg oral delayed release tablet)??1 tab(s) 40 Milligram By Mouth Daily ? Medications Started Z-Ace Medications Discontinued None Doses Changed None PCP Follow-Up/Heads-Up F/u on CHF, URTI Repeat creatinine and electrolytes in 1-2 weeks Hospital Course Patient is a 73-year-old female with history of CAD status post CABG, recent cholecystectomy complicated by intraabdominal infection,??heart failure with preserved ejection fraction, CKD, diabetes, presenting with cough, congestion and shortness of breath. ?? Acute exacerbation of CHF (congestive heart failure) (I50.9) CAD (coronary artery disease) (I25.10) CKD (chronic kidney disease) (N18.9) URTI (acute upper respiratory infection) (J06.9) Symptoms began approximately 5 days ago with feeling sick and congested, generalized edema, particularly in the lower extremities. She has a grandchild who was in day care and had similar symptoms Patient reports headache which she associates with hypotension and reports home diastolic blood pressure of 43 mmHg. CXR shows: small right pleural effusion. Cardiomegaly. CXR and inability to lie flat suggest CHF exacerbation JERZY (below) is??likely??cardiorenal. Trops are??flat??-> no signs of ACS contributing. ?? PLAN Discharge on Z-pack given cough and congestion and possible URTI with risk of bacterial infection She is euvolemic at discharge and can resume home Lasix 80 mg daily cont carvedilol cont??hydralazine cont nifedipine?? She is not requiring any oxygen at discharge Discharge home with services, f/u with PCP ?? Hyponatremia (127 mEq/L) Hypokalemia (3.2 mEq/L) Electrolytes improved prior to discharge F/u with PCP ?? JERZY: CKD (chronic kidney disease) (N18.9):?? stag 4 Like cardiorenal. Improving F/u with PCP ?? CAD (coronary artery disease) (I25.10):?? - cont??asa - cont statin - cont carvedilol ?? Diabetes: continue home regimen ?? GERD: - cont home PPI ppi ? Patient was found to have and elevated creatinine (3.2 mg/dL from baseline of 2.3 mg/dL). Troponin was stable at 47 and 45 ng/L. Chest x-ray revealed small right-sided pleural effusion.? She was given lasix 20mg IV x1 and reports brisk urine output.?? Objective Assessment and Plan ? Vital Signs?? Temperature: 98.5 DegF (01/01/25 04:23:00) Temperature Route: Oral (01/01/25 04:23:00) Pulse Rate: 60 bpm (01/01/25 10:48:00) Respiratory Rate: 22 br/min (01/01/25 10:48:00) Systolic Blood Pressure:??149 mm Hg??High (01/01/25 10:48:00) Diastolic Blood Pressure: 56 mm Hg (01/01/25 10:48:00) Blood pressure sites: Arm, right (01/01/25 10:48:00) Mean Arterial Pressure: 87 mm Hg (01/01/25 10:48:00) Pulse Pressure: 93 mm Hg (01/01/25 10:48:00) Oxygen Saturation: 99 % (01/01/25 10:48:00) Mode of Delivery (Oxygen): Room air (01/01/25 10:48:00) Early Warning Score: 3 (01/01/25 10:50:53) ? . Physical Exam General: elderly obese female, lying in bed Neck: Supple, no JVD HEENT: oral membranes moist Heart: regular rhythm, S1 and S2 heard Lungs: diminished breath sounds bilaterally but??no crackles or wheezing noticed Abdomen: soft, non-tender, +ve bowel sounds in all quadrants Extremities: legs are warm, + 1 pitting edema??in legs??b/l. Neuro: speaking in full sentences, CN 2-12 grossly intact; good strength in upper and lower limbs. Psych: calm and??cooperative Follow-Up Appointments Added Follow Up ?Time Frame ?Comments Rosalina AVILES, Diana D?1 week: call to discuss follow up visit?Please see your primary care physician for management of your chronic medical conditions and for refill of your medications. Patient Instructions You were admitted due to upper respiratory tract viral infection??and mild??heart failure with fluid on your lungs. You do not need oxygen. You can be discharged home today. Complete??antibiotics course.??Continue??to take your lasix??as??you??were doing??at??home. Follow up with your primary care physician. If your symptoms worsen or you develop chest pain, shortness of breath, severe cough, fevers, chills, abdominal pain, nausea/vomiting, or any severe symptoms you can come back to the emergency department. Post Discharge Care Diet: ??Cardiac diet ?? Discharge ?Give Lasix inj prior to discharge, 01/01/25 11:36:00 EST ?Order Comment:?? Discharge Prescriptions ?ePrescribed, 01/01/25 11:36:00 EST ?Order Comment:?? Home Health Face to Face *Denotes mandatory taylor ?? *I certify that this patient is under my care and that I or an allowed non- physician working with me had a face to face encounter with the patient on this date:??01/01/2025 11:37 ?? *The encounter with the patient was in whole, or in part, for the following medical condition, which is the primary diagnosis(es) for home health care:??Acute exacerbation of CHF (congestive heart failure) (I50.9) CAD (coronary artery disease) (I25.10) CKD (chronic kidney disease) (N18.9) URTI (acute upper respiratory infection) (J06.9) ?? *Select the indications for the discipline/s that [...] Therapy (select all that apply): [_] None [x] Functional mobility training [x] Home exercise program to strengthen [_] Increase [...] [_] Pain [_] Decreased strength and endurance [x] Unsteady gait [x] Severe SOB and fatigue [_] Impaired transfers [_] Inability to negotiate stairs [_] Limited weight bearing [_] Mental status change? *Physician Signature:??Terry Cross MD. ?? *By signing this, I certify that I have personally evaluated the patient and agree with the findings and recommendations as documented above. ? althFTF Results Discharge Labs BLOOD COUNT & DIFF WBC 4.5 k/mm3 ()?? 01/01/2025 08:48 RBC 3.10 m/mm3 (Low)?? 01/01/2025 08:48 Hgb 8.5 Gm/dL (Low)?? 01/01/2025 08:48 Hct 25.3 % (Low)?? 01/01/2025 08:48 MCV 81.6 femtoliters ()?? 01/01/2025 08:48 MCH 27.4 pg ()?? 01/01/2025 08:48 MCHC 33.6 Gm/dL ()?? 01/01/2025 08:48 Platelet Count 261 k/mm3 ()?? 01/01/2025 08:48 RDW-SD 50.1 femtoliters (High)?? 01/01/2025 08:48 MPV 11.2 femtoliters ()?? 01/01/2025 08:48 Nucleated RBC (Automated) 0.0 #/100 WBC'S ()?? 01/01/2025 08:48 Abs. NRBC 0.0 k/mm3 ()?? 01/01/2025 08:48 Abs. Neut 1.8 k/mm3 ()?? 12/30/2024 22:06 Abs. Lymph 1.5 k/mm3 ()?? 12/30/2024 22:[address] [place] 0.5 k/mm3 ()?? 12/30/2024 22:06 Abs. Eo 0.1 k/mm3 ()?? 12/30/2024 22:06 Abs. Baso 0.0 k/mm3 ()?? 12/30/2024 22:06 Neut % 46.2 % ()?? 12/30/2024 22:06 Lymph % 37.7 % ()?? 12/30/2024 22:06 [place] % 12.3 % (High)?? 12/30/2024 22:06 Eos % 3.0 % ()?? 12/30/2024 22:06 Baso % 0.5 % ()?? 12/30/2024 22:06 Imm Gran 0.3 % ()?? 12/30/2024 22:06 Abs. Imm Gran 0.0 k/mm3 ()?? 12/30/2024 22:06 ?? CARDIAC High Sensitivity Troponin (HSTnT) 45 ng/L (High)?? 2024 04:55 ? CHEM GENERAL Sodium 135 mmol/L ()?? 01/01/2025 08:51 Potassium 3.5 mmol/L (Low)?? 01/01/2025 08:51 Chloride 98 mmol/L ()?? 01/01/2025 08:51 Bicarbonate Level 21 mmol/L (Low)?? 01/01/2025 08:51 Anion Gap 16 mmol/L ()?? 01/01/2025 08:51 Glucose Level 126 mg/dL (High)?? 2024 04:55 Glucose, POC 206 mg/dL (High)?? 01/01/2025 06:29 BUN 56 mg/dL (High)?? 01/01/2025 08:51 Creatinine-Blood 2.77 mg/dL (High)?? 01/01/2025 08:51 Estimated GFR Creatinine 18 ML/MIN/1.73 M2 ()?? 01/01/2025 08:51 Calcium 8.3 mg/dL (Low)?? 2024 04:55 Magnesium 1.8 mg/dL ()?? 2024 04:55 ?? COAG D-Dimer 1.30 mg/L FEU (High)?? 2024 05:23 ? HEME OTHER Hold Blue Top SPECIMEN DISCARDED AFTER 4 HOURS. ()?? 12/30/2024 22:06 ? URINE OTHER Est Creatinine Clearance 17.03 mL/min ()?? 01/01/2025 09:53 ? VIROLOGY COVID-19 PCR Specimen Source NASAL ()?? 12/30/2024 22:25 COVID-19 PCR Result NEGATIVE ()?? 12/30/2024 22:25 ? 38??minutes spent on discharge Patient Care team information Care Team Personnel Name: Anuradha Flores RN Position: [facility] RN Member Role: Primary Care Nurse Name: Diana Romano MD Position: Reference Physician Member Role: PCP Address: [address] [place] [address], [address] [place], [place], [address]: Name: Nadya Harrison RN Position: [facility] RN Member Role: Primary Care Nurse Name: Carlee Concepcion RN Position: [facility] RN Member Role: Primary Care Nurse Name: Renate Bradley RN Position: [facility] RN Member Role: Primary Care Nurse Name: Tita Scanlon RN Position: S RN Member Role: Primary Care Nurse Name: Lizbeth Maier RN Position: [facility] RN Member Role: Primary Care Nurse Name: Heavenly Martino RN Position: [facility] RN Member Role: Primary Care Nurse Name: Salena RNSlick Position: [facility] ED RN W/OE and Tasks Member Role: Primary Care Nurse Name: Elodia Garcia RN Position: [facility] RN Member Role: Primary Care Nurse Name: Kelly Barba RN Position: [facility] RN Member Role: Primary Care Nurse Name: Renee Graham RN Position: [facility] RN Member Role: Primary Care Nurse Name: Anuradha Cai RN Position: [facility] RN Member Role: Primary Care Nurse Name: Matty Joel MD Position: [facility] Outreach Member Role: Lifetime Consulting Physician Address: [address] [facility] [address] Telecom: Name: Ash Soto MD Position: [facility] Renal MD Member Role: Lifetime Consulting Physician Address: [address] [facility] [address] Telecom: Name: Slick Armstrong RN Position: [facility] RN Member Role: Primary Care Nurse Name: Araceli Pinto RN Position: [facility] RN Member Role: Primary Care Nurse Name: Karen Resendez RN Position: [facility] RN Member Role: Primary Care Nurse Name: Alber Hernández MD Position: [facility] Renal MD Member Role: Lifetime Consulting Physician Address: [address] [facility] the [address] Telecom: Name: Kavitha Choudhary RN Position: [facility] RN Member Role: Primary Care Nurse Name: Sudha Kee RN Position: [facility] RN Member Role: Primary Care Nurse Name: Tita Sims RN Position: S RN Member Role: Primary Care Nurse Name: Krystyna Lin RN Position: [facility] RN Member Role: Primary Care Nurse Care Team Related Persons Name: LEO COCHRAN Name: AMILCAR JOHNSON Insurance Providers Guarantor name: [facility] Information #: 1 Payer: NA Member Number: [id number] Policy Number: NA Group Number: [facility] Information #: 2 Payer: NA Member Number: [id number] Policy Number: NA Group Number: NA
== END 2025-01-14 10:05 | disposition home or self-care (01) ==
PROVIDERS: PCP Internal Medicine; Visit Provider Internal Medicine Hypertension Specialist
DX: E11.22 Type 2 diabetes mellitus with diabetic chronic kidney disease (principal); N18.4 Chronic kidney disease, stage 4 (severe); D63.1 Anemia in chronic kidney disease; Z79.4 Long term (current) use of insulin
CPT/HCPCS: 99214

== ENCOUNTER → 2025-01-14 09:32 | Outpatient (BNVA) | payer OTHER, SELFPAY | PROVIDERS: PCP Internal Medicine; Visit Provider Internal Medicine Hypertension Specialist | DX: E11.22 Type 2 diabetes mellitus with diabetic chronic kidney disease (principal); N18.4 Chronic kidney disease, stage 4 (severe); D63.1 Anemia in chronic kidney disease | CPT/HCPCS: 99212 ==

== ENCOUNTER 2025-02-04 09:46 | Outpatient (AMB) | payer OTHER, SELFPAY ==
[2025-02-04 09:53] VITALS: BP 146/60; PULSE 60; O2SAT 98; BMI 35.3
--- NOTE | 2025-02-04 09:53 | HO.NEPHOV ---
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 Accompanied by: Spouse Allergies No Known Allergies Allergy (Verified 02/04/25 09:59) Medication List - Last Reconciled 02/04/25 by Martín De Luna MD albuterol sulfate 90 mcg/actuation (ProAir HFA) 2 puffs inhalation Q6H PRN albuterol sulfate 90 mcg/actuation (ProAir RespiClick) 1 inh inhalation Q4-6H PRN aspirin 81 mg PO DAILY atorvastatin 80 mg PO DAILY carvedilol 12.5 mg PO BID cholecalciferol (vitamin D3) 50 mcg PO DAILY ferrous sulfate (FeroSul) 325 mg PO DAILY furosemide 80 mg PO DAILY hydralazine 75 mg (1.5 x 50 mg) PO TID insulin glargine (Lantus Solostar U-100 Insulin) 62 units subcut DAILY insulin lispro (Humalog KwikPen (U-100) Insulin) subcut metolazone 2.5 mg PO DAILY PRN nifedipine ER mg PO DAILY pantoprazole 40 mg PO DAILY potassium chloride ER 10 mEq PO DAILY HPI Comments Details: 73-year-old [place] woman with a history of diabetes mellitus for more than 35 years who was at chronic kidney disease. She is history of congestive heart failure and was on Entresto Lasix and furosemide. Back in November of 2023 creatinine was 2.6 with EGFR of 19 mL/minute. She is currently in nifedipine 60mg daily, hydralazine 75mg TID, carvedilol 12.5mg BID and furosemide 40mg PO BID She continues to have back pain. She has chronic shortness of breath (reports since prior to heart surgery last year which she states did not really help her breathing much. States at rest is ok, with exertion continues to have some dyspnea chronically). No nausea, vomiting. She has leg edema. Wears compression stockings. No weight loss. All other systems were reviewed History of congestive heart failure with preserved ejection fraction. 09/10/24 reports shortness of breath for a while now reports a year ago had open heart surgery, reports before then had it but surgery didn't make it better and has continued blood pressure medications- reports has not taken yet this a.m. Reports SBP at home is usually in 130s. 10/15/2024. Milla was hospitalized about a week ago. She had acute kidney injury superimposed on CKD with fungemia. Serum creatinine peaked more than 4. Diuretics were held. Renal function gradually improved. She is currently not on diuretics creatinine is around 3. She has significant edema. No shortness of breath at present. Accompanied by her family member. She had recently undergone laparoscopic cholecystectomy for symptomatic cholelithiasis. During this hospitalization faustina was negative. He has been catheter was inserted 1121. She is currently on Micafungin and Zosyn 12/03/24; BP was low ; She was hospitalized @ [facility]; Nov 2023 : Cr 2.2 ;Nov 2024 Cr 2.2 with eGFR of 22 ml/mt 01/14/25: Recently in ER for a viral infection; Resolved 02/04/25 Leg edema increased Received IV Lasix [facility] Medical History (Updated 10/15/24 @ 12:13 by SAMUEL Arias) Chronic kidney disease Degenerative joint disease (DJD) of hip Cataract Bunion Fatty liver DJD (degenerative joint disease), lumbar DJD (degenerative joint disease), cervical Diabetes mellitus type 2 with neurological manifestations Vitamin D deficiency Urinary incontinence Allergic rhinitis GERD (gastroesophageal reflux disease) Depression Diabetic retinopathy Hypertension Hyperlipidemia Diabetic nephropathy Surgical History History of cholecystectomy (~09/2024) History of open heart surgery (~02/2023) History of adjustable gastric banding Social History Patient Tobacco Use Status: Never used Tobacco Physical Exam Vital Signs: BMI result Body Mass Index 35.3 Neck Neck: Yes supple Resp Auscultation: clear to auscultation bilaterally Cardio Palpation: no palpable S3 Heart sounds: no rubs GI Palpation (GI): Soft to palpation Auscultation: normal bowel sounds Neuro Motor exam (neuro): no asterixis Extrem General: Yes edema Office Meds epoetin disha-epbx 20,000 unit/mL injection solution Performing Provider: Martín De Luna MD [facility] Administered by: Martín De Luna MD on 02/04/25 10:13 Dose Route Admin Location Dispensed Lot Number Expiration Date [facility] [employer] 20,000 unit subcut right arm 1 mL [id number] 06/18/26 4680-5121-14 [employer] Results Reviewed Nephrology Results: No Data to Display Assessment & Plan Assessment & Plan (1) Chronic kidney disease: Code(s): N18.9 - Chronic kidney disease, unspecified Category: Medical Qualifiers: Chronic kidney disease stage: stage 4 (severe) Qualified Code(s): N18.4 - Chronic kidney disease, stage 4 (severe) (2) Anemia: Code(s): D64.9 - Anemia, unspecified Category: Medical Qualifiers: Anemia type: due to chronic kidney disease Chronic kidney disease stage: stage 4 (severe) Qualified Code(s): N18.4 - Chronic kidney disease, stage 4 (severe); D63.1 - Anemia in chronic kidney disease (3) Diabetes mellitus with chronic kidney disease: Code(s): E11.22 - Type 2 diabetes mellitus with diabetic chronic kidney disease Category: Medical Qualifiers: Diabetes mellitus type: type 2 Diabetes mellitus assistant terminal manager insulin use: with assistant terminal manager use Chronic kidney disease stage: stage 4 (severe) Qualified Code(s): E11.22 - Type 2 diabetes mellitus with diabetic chronic kidney disease; N18.4 - Chronic kidney disease, stage 4 (severe); 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 CKD is most likely due to underlying diabetic kidney disease. Nondiabetic causes seem unlikely based on the clinical picture. Creatinine is marginally better at 2.15 (previously 2.29). Goal at this point is to slow the progression of renal disease. Maintain blood pressure less than 130/80 - she did not take her blood pressure medicine this morning Maintain A1c less than 7%. She is on adequate dose of diuretics at this time. She should stay on low-sodium diet which she is working on She will benefit from SGLT2 inhibitors. Hypertension. 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 Iron stores are adequate. Administered Retacrit 10423 U administered subcutaneously today into right arm Lot [id number] Exp [facility] 1554-9007-05 secondary hyperparathyroidism Mild elevation PTH. She will follow this and start her on vitamin D3 analog as needed. All questions were answered she will return to office in 2-3 weeks Discussed Dialysis options Will refer for home dialysis evaluation Orders: Orders Complete Blood Count no Diff 4 Weeks D63.1 - Anemia in chronic kidney disease, N18.4 - Chronic kidney disease, stage 4 (severe) Basic Metabolic Panel 4 Weeks D63.1 - Anemia in chronic kidney disease, N18.4 - Chronic kidney disease, stage 4 (severe) AMB Epoetin Injection Practice Supplied Today N40.1 - Benign prostatic hyperplasia with lower urinary tract symptoms Medications: New epoetin disha-epbx 20,000 units subcut ONCE 1 mL 0RF anemia N40.1 - Benign prostatic hyperplasia with lower urinary tract symptoms Coding Level of Care Code Est Pt Level 5 (27256) Diagnoses Stage 4 chronic kidney disease N18.4 Chronic kidney disease stage: stage 4 (severe) Anemia due to stage 4 chronic kidney disease N18.4; D63.1 Anemia type: due to chronic kidney disease Chronic kidney disease stage: stage 4 (severe) Type 2 diabetes mellitus with stage 4 chronic kidney disease, with long-term current use of insulin E11.22; N18.4; Z79.4 Diabetes mellitus type: type 2 Diabetes mellitus assistant terminal manager insulin use: with assistant terminal manager use Chronic kidney disease stage: stage 4 (severe)
== END 2025-02-04 10:18 | disposition home or self-care (01) ==
LOC: HO.HKAS 09:47
PROVIDERS: PCP Internal Medicine; Visit Provider Internal Medicine Hypertension Specialist
DX: E11.22 Type 2 diabetes mellitus with diabetic chronic kidney disease (principal); N18.4 Chronic kidney disease, stage 4 (severe); D63.1 Anemia in chronic kidney disease; Z79.4 Long term (current) use of insulin; N40.1 Benign prostatic hyperplasia with lower urinary tract symptoms
CPT/HCPCS: 99215

== ENCOUNTER → 2025-02-04 09:46 | Outpatient (BNVA) | payer OTHER, SELFPAY | PROVIDERS: PCP Internal Medicine; Visit Provider Internal Medicine Hypertension Specialist | DX: E11.22 Type 2 diabetes mellitus with diabetic chronic kidney disease (principal); N18.4 Chronic kidney disease, stage 4 (severe); D63.1 Anemia in chronic kidney disease; Z79.4 Long term (current) use of insulin | CPT/HCPCS: 96372; 99212; Q5106 ==

== ENCOUNTER 2025-02-24 10:34 | Outpatient (REF) | payer OTHER, SELFPAY ==
--- OUTSIDE RECORDS SUMMARY | 2025-02-24 12:38 | XMS_ITS | Clinical Summary ---
Author Organization 175 [facility] Address [address] [place] [address] Phone Care Team Providers Care Utilization Review Coordinator Name Role Phone Dionisio Romano MD Primary Care Provider [phone] Allergies No known active allergies Medications methenamine hippurate (HIPREX) 1 gram tablet Take 1 tablet (1 g total) by mouth 2 (two) times a day. 4 Active docusate sodium (COLACE) 100 mg capsule Take 1 Capsule by mouth 2 times daily for 360 days. 4 08/06/20 25 Active furosemide (LASIX) 40 mg tablet Take 2 tablets (80 mg total) by mouth 1 (one) time each day. 4 Active potassium chloride (Pokonza) 10 mEq packet Take 1 tablet by mouth 2 (two) times a day. Active aspirin 81 mg EC tablet Take 1 tablet (81 mg total) by mouth 1 (one) time each day. Active dulaglutide (Trulicity) 1.5 mg/0.5 mL pen injector injection Inject 1 Dose into the skin once a week. 4 Active insulin glargine (Lantus Solostar U-100 Insulin) 100 unit/mL (3 mL) injection pen Inject 40 Units into the skin at bedtime. 3 Active multivitamin (MULTIPLE VITAMINS ORAL) Take by mouth daily. 5 Active pen needle, diabetic (BD Ultra-Fine Short Pen Needle) 31 gauge x 5/16 needle USE DIRECTED TO ADMINISTER INSULIN AND VICTOZA UP TO SIX TIMES DAILY 2 Active albuterol HFA (PROAIR HFA ; PROVENTIL HFA ; VENTOLIN HFA) 90 mcg/actuation inhaler Inhale 2 Puffs into the lungs every 6 hours as needed for Cough, Wheezing or Shortness of Breath. 1 Active fluticasone propionate (FLONASE) 50 mcg/actuation nasal spray 2 Sprays by Nasal route daily. Please spray 2 sprays in each nostrils daily for 3-4 weeks, then down to 1 spray in each nostril daily. 1 Active blood pressure monitor kit 1 Each by Does not apply route as needed (use as needed). 1 Active acetaminophen (TYLENOL) 500 mg tablet Take 500 mg by mouth every 6 hours as needed. Active insulin lispro (HumaLOG KwikPen Insulin) 100 unit/mL injection pen Inject into the skin. Sliding scale Active pantoprazole (PROTONIX) 40 mg EC tablet TAKE 1 TABLET BY MOUTH DAILY 90 tablet 1 4 Active metOLazone (ZAROXOLYN) 2.5 mg tablet Take 1 tablet by mouth daily as needed for swelling 15 tablet 1 4 Active atorvastatin (LIPITOR) 80 mg tablet Take 1 tablet (80 mg total) by mouth 1 (one) time each day. 30 tablet 2 4 10/03/20 25 Active hydrALAZINE (APRESOLINE) 50 mg tablet Take 1 tablet (50 mg total) by mouth 3 (three) times a day. Active NIFEdipine XL (PROCARDIA XL) 30 mg 24 hr tabletIndicatio ns:Coronary artery disease involving [place] coronary artery of [place] heart without angina pectoris Take 1 tablet (30 mg total) by mouth 1 (one) time each day before breakfast. Do not crush, chew, or split. 90 each 2 5 Active carvediloL (COREG) 12.5 mg tablet Take 1 tablet (12.5 mg total) by mouth 2 (two) times a day with meals. 180 tablet 3 5 Active cholecalciferol (VITAMIN D-3) 50 mcg (2,000 unit) capsule TAKE 1 CAPSULE BY MOUTH DAILY 90 capsule 1 5 Active Active Problems Problem Noted Date Diagnosed Date [...] echocardiogram in September 2024 while hospitalized at [facility] which was reviewed. Abdominal pain 12/09/2024 [...] Edema 09/25/2023 Coronary artery disease invo lving [place] coronary artery of [place] heart without angina pectoris 03/26/2023 Overview (09/04/2024): [...] Team Description 01/08/2025 10:30 AM EST Telemedicine [facility]iology [facility] [address] [place] [address] Michael Torrez MD Atypical chest pain (Primary Dx); Coronary artery disease involving [place] coronary artery of [place] heart without angina pectoris 01/06/2025 Telephone [facility] [address] [place] [address] Michael Torrez MD Appointment 12/25/2024 8:00 AM EST Ancillary Procedure [facility]iology [facility] [address] [place] [address] Coronary artery disease involving [place] coronary artery of [place] heart without angina pectoris; Atypical chest pain 12/16/2024 9:00 AM EST Office Visit Internal [facility] [place] [address] [place] [address] Dionisio Romano MD Routine medical exam (Primary Dx); 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); Primary hypertension; Stage 3b chronic kidney disease (CMS/HCC); Coronary artery disease involving [place] coronary artery of [place] heart without angina pectoris 12/12/2024 8:10 AM EST Office Visit [facility] [address] [place] [address] Christiane Sanders NP Coronary artery disease involving [place] coronary artery of [place] heart without angina pectoris (Primary Dx); Atypical chest pain; Chronic heart failure with preserved ejection fraction (CMS/HCC); Hypertension, unspecified type; Hyperlipidemia, unspecified hyperlipidemia type 11/26/2024 Telephone Internal [facility] [place] [address] [place] [address] Dionisio Romano MD [facility] call from Last 3 Months Immunizations Name Administration [...] PROCEDURE: HISTORICAL ROTATOR CUFF REPAIR APPENDECTOMY PROCEDURE: GA APPENDECTOMY CATARACT EXTRACTION PROCEDURE: HISTORICAL CATARACT REMOVAL OTHER SURGICAL HISTORY PROCEDURE: ---- OTHER ----; COMMENT: venous ligation LAPAROSCOPIC GASTRIC BANDING PROCEDURE: LAP ADJUSTABLE GASTRIC BAND CORONARY ARTERY BYPASS GRAFT Medical History Medical History Date Comments Diabetic neuropathy ([facility]) 02/08/2017 DX :Diabetic neuropathy ([facility]) Hyperlipidemia 02/08/2017 DX:Hyperlipidemi a Hypertension 02/08/2017 DX:Hypertension Diabetic retinopathy ([facility]) 02/08/2017 D X:Diabetic retinopathy ([facility]) Depression 02/08/2017 DX:Depression History of adjustable gastric banding 02/13/2017 DX:History of adjustable gastric banding Diabetes mellitus type 2 wit h neurological manifestations ([facility]) 02/13/2017 DX:Diabetes ehsan itus type 2 with neurological manifestations ([facility]) Type 2 diabetes mellitus wit h eye manifestations ([facility]) 02/13/2017 DX:Type 2 diabetes mellitus with eye manifestations (HCC) Type 2 diabetes mellitus wit h cataract 02/13/2017 DX:Type 2 diabetes mellitus with cataract [...] AM EDT Office Visit Internal Medicine - [place] [address] [facility] [address] [place] [address] Dionisio Romano MD [address] [facility] [address] [place] [address] Health Maintenance Due Date Last Done Comments Zoster Vaccines (3 of 3) 01/23/2020 020, 09/19/2013, 11/05/2012 Falls Risk Assessment 10/28/2022 Medicare Annual Wellness Visit 10/28/2022 Social Influencers of Health Screening 10/28/2022 Diabetes: Annual Urine Albumin-Creatinine Ratio (uACR) 06/21/2024 06/21/2023 COVID-19 Vaccine ( season) 2024 08/06/2023, 06/23/2022, 09/06/2021, Additional history exists Diabetes: Annual Foot Exam 10/09/2024 10/09/2023 Diabetes: Annual Retina Eye Exam 05/12/2025 05/12/2024 Diabetes: Blood Sugar Control Test (HGBA1C) 08/02/2025 01/30/2025, 06/01/2021 Diabetes: Annual GFR (Glomerular Filtration Rate) 12/16/2025 12/16/2024, 03/05/2024 Hypertension/CHF/CAD Annual BMP Blood Test 12/16/2025 12/16/2024, 03/05/2024 Depression Screening 01/08/2026 01/08/2025 Breast Cancer Screening 11/13/2026 11/13/20, 05/07/2024, 11/05/2023, Additional history exists Cholesterol Screening (Lipid Panel) 09/08/2029 09/08/2024, 06/01/2021 Osteoporosis Screening (Bone Density Screening) 12/05/2032 12/05/2022, 01/28/2020 DTaP,Tdap,and Td Vaccines (2 - Td or Tdap) 06/21/2033 06/21/2023 Colorectal Cancer Screening: Colonoscopy 04/16/2034 04/16/2024 Pneumococcal Vaccine: 50+ Years Completed 02/05/2018, 01/02/2017 Hepatitis C Screening Completed 02/27/2023 Influenza Vaccine Completed 06/30/2024, , 06/23/2022, Additional history exists RSV Immunization Adult Patients Completed 06/30/2024 HIB Vaccines Aged Out No [...] age to complete this topic Meningococcal B Vaccine Aged Out No l onger eligible based on patient's age to complete this topic RSV Immunization Patients Under 20 months Aged Out No longer eligible based on patient's age to complete this topic Varicella Vaccines Aged Out No longer eligible based on patient's age to complete this topic Procedures Procedure Name Priority Date/Time Associated Diagnosis Comments COMPLETE BLOOD COUNT Routine 01/26/2025 12:00 PM EDT Chronic kidney disease, stage IV (severe) (CMS/HCC) NM LEXISCAN STRESS TEST W/ MYOCARDIAL PERFUSION Routine 12/25/2024 10:26 AM EST Coronary artery disease involving [place] coronary artery of [place] heart without angina pectoris Atypical chest pain [...] Routine 06/21/2023 HEPATITIS C SCREENING Routine 02/27/2023 [facility] DEXA AXIAL SKELETON Routine 12/05/2022 5:38 PM EST Encounter for screening for osteoporosis HEMOGLOBIN A1C Routine 06/01/2021 LIPID PANEL Routine 06/01/2021 from Last 3 Months or Most Recently Relevant to Health Maintenance Results * (ABNORMAL) Complete blood count (01/26/2025 12:00 PM EDT) [facility] Signature WBC 6.0 4.8 - 10.8 K/mcL LAB [facility] RBC 3.20(L) 3.80 - 4.80 M/mcL LAB HEMETOLOGY METHOD [facility] Hemoglobin 9.0(L) 11.5 - 16.0 g/dL LAB HEMETOLOGY METHOD [facility]25 [facility] Hematocrit 28.7(L) 35.0 - 47.0 % LAB HEMETOLOGY METHOD 01/26/2025 2:29 PM EDT [facility] MCV 89.4 79.0 - 98.0 FL LAB HEMETOLOGY METHOD [facility]25 [facility] MCH 28.0 27.0 - 32.0 pcg LAB HEMETOLOGY METHOD 01/26[facility]2025 [facility] MCHC 31.4(L) 32.0 - 37.0 g/dL LAB HEMETOLOGY METHOD 01/26/2025 2:29 PM EDT [facility] RDW 17.5(H) 11.0 - 15.0 % LAB HEMETOLOGY METHOD 01/26/2025 2:29 PM EDT [facility] Platelets 245 130 - 400 K/mcL LAB HEMETOLOGY METHOD 01/26/2025 2:29 PM EDT [facility] MPV 11.8(H) 7.0 - 11.0 FL LAB HEMETOLOGY METHOD 01/26/2025 2:29 PM EDT [facility] NRBC 0.0 <1.0 % LAB HEMETOLOGY METHOD 01/26/2025 2:29 PM EDT [facility] NRBC Absolute 0.00 <0.10 K/mcL LAB HEMETOLOGY METHOD 01/26/2025 2:29 PM T [facility] Blood Venous blood specimen / Unknown Venipuncture / Unknown 01/26/2025 12:00 PM EDT 01/26/2025 12:00 PM EDT Martín De Luna MD LAB BLOOD ORDERABL ES Final Result [facility] [address] [place] [address], * NM LEXISCAN STRESS TEST W/ MYOCARDIAL [...] mmol/L LAB CHEMISTRY METHOD 12/16/2024 2:56 PM [facility] Potassium 4.1 3.5 - 5.5 mmol/L LAB CHEMISTRY METHOD 12/16/2024 2:56 PM [facility] Chloride 104 96 - 110 mmol/L LAB CHEMISTRY METHOD 12/16/2024 2:56 PM [facility] CO2 29 21 - 32 mmol/L LAB CHEMISTRY METHOD 12/16/2024 2:56 PM [facility] Anion Gap 4 3 - 11 LAB CHEMISTRY METHOD 12/16/2024 2:56 PM [facility] Glucose 223(H) 70 - 100 mg/dL LAB CHEMISTRY METHOD 12/16/2024 2:56 PM [facility] BUN 36(H) 5 - 25 mg/dL LAB CHEMISTRY METHOD 12/16/2024 2:56 PM [facility] Creatinine 2.33(H) 0.50 - 1.10 mg/dL LAB CHEMISTRY METHOD 12/16/2024 2:56 PM [facility] eGFR 22(L) >=60 mL/min/1. 73m2 LAB CHEMISTRY METHOD 12/16/2024 2:56 PM [facility] Comment:Calculation based on the??Chronic Kidney Disease Epidemiology Collaboration (CKD-EPI) equation refit??without adjustment for race. BUN/Creatinine Ratio 15.5 LAB CHEMISTRY METHOD 12/16/2024 2:56 PM [facility] Calcium 9.2 8.5 - 10.5 mg/dL LAB CHEMISTRY METHOD 12/16/2024 2:56 PM EST [facility] Blood Venous blood specimen / Unknown Venipuncture / Unknown 12/16/2024 9:48 AM EST 12/16/2024 9:48 AM EST us Dionisio Romano MD LAB BLOOD ORDERABLES Final Res ult [facility] [address] [place] [address], * MG Mammo Digital Diagnostic w Isaac bilat (11/13/2024 8:23 AM EST) Anatomical Region Laterality Modality Breast Bilateral Mammography 11/13/2024 8:11 AM EST Impressions 11/13/2024 8:21 AM EST Benign. BI-RADS CATEGORY: 2 - BENIGN RECOMMENDATION: Screening bilateral mammogram is recommended in 1 year. Mammo Location: [facility], [address] [place] [id number] -------- FINAL REPORT -------- Dictated By: Daniel Gregoyr Dictated Date: 11/13/2024 08:11 ET Assigned Physician: Daniel Gregory Reviewed and Electronically Signed By: Daniel Gregory Signed Date: 11/13/2024 08:21 ET Workstation ID: [id number] Transcribed By: Self Edit Transcribed Date: 11/13/2024 [...] and CC projection is performed in the [employer] 2000-D unit. ??Computer aided detection utilizing the [...] MLO and CC projection is performed in theShenzhen [employer]he 2000-D unit. Computer aided detection utilizing the Luminescentystem was utilized. FINDINGS: The breasts are again [...] is recommended in 1 year. Mammo Location: [facility], [address] [place] [id number] -------- FINAL REPORT -------- Dictated By: Daniel Gregory Dictated Date: 11/13/2024 08:11 ET Assigned Physician: Daniel Gregory Reviewed and Electronically Signed By: Daniel Gregory Signed Date: 11/13/2024 08:21 ET Workstation ID: [id number] Transcribed By: Self Edit Transcribed Date: 11/13/2024 08:11 ET Dionisio Romano MD IMG BI PROCEDURES Final Result * Diabetes Eye Exam (05/12/2024) Diabetes: Annual Retina Eye Exam abstracted Historical Provider HEALTH MAINTENANCE Final Result * Colonoscopy (04/16/2024) Colonoscopy no interpretation , abstracted Anatomical Region Laterality Modality Other Historical Provider HEALTH MAINTENANCE Final Result * Diabetes Foot Exam (10/09/2023) [facility] Diabetes: Annual Foot Exam abstracted Historical Provider HEALTH MAINTENANCE Final Result * Urine Albumin Creatinine Ratio (06/21/2023) [facility] Urine Albumin Creatinine Ratio abstracted Historical Provider HEALTH MAINTENANCE Final Result * Hepatitis C Screening (02/27/2023) [facility] Hepatitis C Screening abstracted Historical Provider HEALTH MAINTENANCE Final Result * [facility] DEXA AXIAL SKELETON (12/05/2022 5:38 PM EST) Anatomical Region Laterality Modality Mammography 12/05/2022 11:1 5 AM EST Narrative 12/05/2022 5:38 PM EST [facility] Diagnostic Imaging Department [address] [place] [address] Patient: ??TALIA WATST ?/Age/Sex: 1950 - 71 - F Unit#: ??[id number] ? Location/Status: ??SPDIMAM/REG CLI ? Mnemonic/Ordering Site: ??MAMDEXAAX/SPMAM Ordering Physician: ??DIONISIO ROMANO MD [facility] Dexa Axial Skeleton - 12/05/22 - History: Low estrogen state due to menopause. On omeprazole. Comparison: 08/10/14 Findings: Bone densitometry is performed utilizing dual energy x-ray absorptiometry (DXA) in the [employer] unit. The lumbar spine and proximal femora [...] 0.1 percent. IMPRESSION: Normal bone mineral density. [id number] Dictating Physician: ??LATRICE SIMS MD Electronically Signed by: ??LATRICE SIMS MD Dic Date/Time: ??12/05/221736 Sign date/Time: ??12/05/22 173 Procedure Note Latrice Sims MD - 12/21/2023 [facility] Diagnostic Imaging Department [address] [place] [address] Patient: MACTALIA CorderoO.B./Age/Sex: 1950 - 71 - F Unit#: [id number] Location/Status: SPDIMA/REG CLI [facility] Ordering Physician: DIONISIO ROMANO MD [facility] Dexa Axial Skeleton - 12/05/22 - History: Low estrogen state due to menopause. On omeprazole. Comparison: 08/10/14 Findings: Bone densitometry is performed utilizing dual energy x-ray absorptiometry(DXA) in the [employer] unit. The lumbar spine and proximal femora [...] 0.1 percent. IMPRESSION: Normal bone mineral density. [id number] Dictating Physician: LATRICE SIMS MD Electronically Signed by: LATRICE SIMS MD Dic Date/Time: 12/05/22 173 Sign date/Time: 12/05/22 173 Result [facility] Dionisio Romano MD IMG BI PROCEDURES Final Result * (ABNORMAL) Hemoglobin A1c (06/01/2021) [facility] Hemoglobin A1C 9.1(A) <=6.5 % Blood Venous blood specimen / Unknown Result [facility] Historical Provider LAB BLOOD ORDERABLES Adilia l Result * Lipid panel (06/01/2021) Pathologist [facility] LDL/HDL Ratio 3 0 - 4 Triglycerides 125 0 - 150 mg/dL Cholesterol 142 0 - 200 mg/dL HDL 57 >=40 mg/dL LDL Cholesterol 60 0 - 100 mg/dL Blood Venous blood specimen / Unknown Result [facility] Historical Provider LAB BLOOD ORDERABLES Adilia l Result from Last 3 Months or Most Recently Relevant to Health Maintenance Insurance [employer] MEDICARE Member Subscriber Plan / Payer (Ef fective 2023-Present) Name:Talia Watts Relation to Subscriber:Self Name:Talia Watts Payer ID:[id number] Group ID:[id number] Type:Not on file Address: [place] [address] [place] [address] Care Teams Utilization Review Coordinator Relationship Specialty Start Date End Date Dionisio Romano MD [address] [place] [phone] PCP - General Internal Medicine 02/25/13
--- OUTSIDE RECORDS SUMMARY | 2025-02-24 12:38 | XMS_ITS | Data Portability ---
Author Organization [employer] [facility] [place] [facility] Address [address] [place] [id number] Care Team Providers Care Yard General Car Supervisor Name Role Phone [facility] Primary Care Provider HIM CCA OTHER Assessment Encounter Date Assessment Date Assessment LastModified by Organization Details LastModified Time 10/02/2024 10/02/2024 As noted, we ochoa e called to see this patient regarding concerns of shob and weakness. Evaluation in the field was performed by my assistant maintenance manager colleague, as noted above, I provided real-time direction and supervision for this visit. The evaluation revealed 73y F post-op day 2 from cholecystectomy with shortness of breath, malaise and decreased SpO2. Refer to ER for eval Impression: hypoxia, post op Plan: refer to ER Primary care, consider ER f/u atilhou Not available 10/02/2024 19:22:07 02/02/2025 02/02/2025 service called for LE edema found 74 yof with hx T2DM CAD s/p CABG CHF HTN CKD bsl Cr 3 anemia c/o worsening pitting edema legs, hands, +orthopnea x 1wk usually PO lasix 40 recent viral URI admitted to hospital 1 month prior for acute CHF requiring IV lasix 201->220lbs VSS reported +3 LE edema Na 137 K 4 BUN/Cr 47/3.2 #Acute on Chronic CHF 40mg IV furosemide x1 conitnue PO furosemide as prescribed pt to f/up with service 24h for lytes check and vol status check vkudesia Not available 02/02/2025 18:30:50 Plan of Treatment Reminders Order Date Submit Date Provider Last Modified By Organization Details Last Modified Time Details Appointments None recorded. Lab BMP, serum or plasma 2024 025 [facility], [address] [place] [address], [id number] 21:34:24 Referral None recorded. Procedures None recorded. Surgeries None recorded. Imaging None recorded. Medication Orders furosemide 10 mg/mL injection solution 2024 025 chencho [id number], [address], [place], [place], [phone], 18:30:31 Patient TargetsNo targets recorded. Patient InstructionsNo instructions recorded. Reason for Referral None Reported. Results Created Date Observation Date Name Description Value Unit Range Abnormal Flag Note LastModifiedBy Organization Detail LastModifiedTime Result Notes None recorded. Medical Equipment None Reported. Allergies No known [...] Available Not Available No t Available furosemide 10 mg/mL injection solution Inject 4 mL twice a day by intramuscul ar route. 2024 active Not Available Not Available Not Avai lable atorvastatin 80 mg tablet TAKE 1 TABLET [...] % 132 mm[Hg] 60 mm[Hg] Not Available [employer] - production 4 19:18:13 Date Recorded Respiratory rate Heart rate Body height Body weight Body temperature Oxygen saturation Oxygen saturation in Arterial blood by Pulse oximetry Systolic blood pressure Diastolic blood pressure Provider Name and Address Organization Details Last Updated DateTime 5 17 /min 76 /min 167.64 cm 67107.2 4 g 98.3 [degF] 94 % 94 % 160 mm[Hg] 60 mm[Hg] Not Available [employer] - production 5 17:47:35 Social History None recorded. Functional Status None recorded. Mental Status None recorded. Family History Nothing Reported. Medical History No medical history recorded. Gynecological HistoryNo gynecological history recorded. Obstetrics History GPAL:G 0 P 0 0 0 0 Past Encounters Encounter ID Performer Location Encounter Start Date Encounter Closed Date Diagnosis/Indication Diagnosis SNOMED-CT Code Diagnosis ICD10 Code Diagnosis Note [id number] Brina Hurd MD Main - [facility] [address] [place] [address] 10/02/2024 19:18:11 10/02/2024 23:20:15 Postoperative visit 141312331 Z48.89 Dyspnea 571221661 R06.00 [id number] Jasmyn Wooten MD Main - [address] [address] 02/02/2025 17:47:28 02/03/2025 19:30:55 Acute exacerbation of chronic congestive heart failure 663337522 I50.9 Health Concerns Section Related Observation LastModified by Organization Detai ls LastModified Time None Recorded Concern Status LastModified by Organization Details LastModified Time None Recorded Advance Directives Directive None Recorded Payers Encounter Date Sequence Insurance Name Policy Number Policy Braun Covered Member ID Braun Member ID Guarantor Name 10/02/2024 1 [facility] - DOS ON OR AFTER 2023 - DUAL ELIGIBLE - PRISON OPTIONS AND ONE CARE (MEDICARE REPLACEMENT/ADV ANTAGE - HMO) Milla Guzman [id number] Milla Guzman 02/02/2025 1 [facility] - DOS ON OR AFTER 2023 - DUAL ELIGIBLE - PRISON OPTIONS AND ONE CARE (MEDICARE REPLACEMENT/ADV ANTAGE - HMO) Milla Guzman [id number] Milla Guzman Notes Date Note Type Note [...] 2, Cholecystectomy Comments: gallbladder removal on Sunday. Lee sob since d/c from hospital yesterday. 02 [...] ..................... ..................... ..................... ..................... ..................... ..................... ............... Network Support Specialist Note From Tyler Milligan: SC12 dispatched to [...] she recently had her gallbladder removed at [facility] on 09/30, patient reports that the [...] Patient baseline vital signs obtained as noted. [facility] was consulted and advised that the patient should go to the hospital to R/O a pulmonary embolism. Patient agreed to go to the hospital and [place] called 911 for patient. Patient report given to transporting ambulance without incident. ..................... ..................... ..................... ..................... ..................... ..................... ............... [facility] Consulted: Brina Hurd ..................... ..................... ..................... ..................... ..................... ..................... ............... Disposition: Fulfilled Brina Hurd MD [address] [facility],[address], [place], [address], [employer] 10/02/2024 19:57:17 02/02/2025 text/html HPI: Pt c/o increase lower extremities edema, SOB, increase cough, elevated BP and feeling fatigue ..................... ..................... ..................... ..................... ..................... ..................... ............... [facility] Nurse Triage Notes (Nakita Donnelly): Reason For Request: SOB, extremity swelling Chief Complaints: Extremity Swelling, High Blood Pressure PMH: Diabetes Mellitus Type 2, Cholecystectomy, Coronary Artery Bypass Grafting (CABG), Congestive Heart Failure, Hypertension, Incontinence, Chronic Kidney Disease, Anemia PMH Reviewed at 02/02/2025 - 16:32 Allergies Reviewed at 02/02/2025 - 16:32 Comments: called back member at 1626, b/p 152/62, requesting IV Lasix/increased swelling in extremities. SOB are rest/exertion, feeling fluid building up. Left sided abdominal pain/back pain-possibly constipation. Left sided flank pain- no urinary symptoms. Shaun RN Network Support Specialist Organization Information for Clemente Koch [employer] Name: [employer] ? Address: [address] [place] [address] [place] [address], Biology Intern: Thomas BERMUDEZ No.: [id number] Network Support Specialist POC Test Results from Clemente Koch - [facility] iSTAT Chem8+ (18:05:40) Na: 137 mEq/L K: 4.0 mEq/L Cl: 106 mEq/L iCa: 1.09 mmol/L TCO2: 23 mmol/L Glu: 213 mg/dL BUN: 47 mg/dL Crea: 3.2 mg/dL Hct: 30 % Hb: 10.2 g/dL A mmol/L Attachments uploaded as part of this test result can be found under Documents section. ..................... ..................... ..................... ..................... ..................... ..................... ............... Network Support Specialist Note From Clemente Koch: [facility] makes pt contact a 74 yo F CC of edema. [facility] obtains vital signs. PT explains she has been dealing with recurring fluid retention issues. PT was hospitalized in September or October, pt cant recall, where they gave her additional lasix and drained 500mL from her posterior flank. PT was then hospitalized again in December where they gave her additional lasix due to fluid overload. PT takes a daily 40mg of PO Lasix. PT also has CKD and sees her kidney doctor regularly for kidney function tests. PT has bilateral edema in the lower and upper extremities. PT explains her hands and face are also swollen. PTs visiting RN today explained the need for pt to receive IV lasix. PT explains she cant lay down other she has an increase in SOB. Lungs are clear in upper taylor but lower taylor have clear but diminished sounds. PT confirms no allergies. [facility] contacts [facility] and explains above mentioned. [facility] orders labs to be done to se kidney function and electrolyte levels. Labs are obtained via 20G IV in the right ac first attempt. Istat is performed and uploaded to [facility]. After discussing labs with [facility], [facility] orders 40mg OF furosemide IV, which is given slowly over 3 - 5 minutes and IV removed at the end of visit. PT is advised to monitor signs and symptoms and if they get worse also including chest pain, n/v/, or severe sob that she should seek a higher level of care. Otherwise in one or two days call us back for reassessment. PT is advised to still go to her kidney appointment on Sunday and inform her doctor of the need for additional lasix. PT understands. MIH clear. [facility] Lab Orders: BMP, serum or plasma: Performed ..................... ..................... ..................... ..................... ..................... ..................... ............... [facility] Consulted: Jasmyn Wooten ..................... ..................... ..................... ..................... ..................... ..................... ............... Disposition: Kumar Wooten MD [address] [facility],[address], [place], [address], [employer] 02/03/2025 00:02:11 OBGyn Episode No OBEpisode recorded.
--- OUTSIDE RECORDS SUMMARY | 2025-02-24 12:38 | XMS_ITS ---
Author Name Sera Houser NP Address [address] [place] [address] Phone [phone] [facility] Care Team Providers Care Disaster Or Damage Control Specialist Name Role Phone Sera Houser Unavailable [phone] [facility] Unavailable Unavailable Unavailable [phone] Unavailable Unavailable Unavailable Unavailable Unavailable [phone] Unavailable Unavailable [phone] Unavailable Unavailable [phone] Unavailable Unavailable [phone] Unavailable Unavailable [phone] Unavailable Unavailable [phone] Unavailable Unavailable [phone] Unavailable Unavailable [phone] Unavailable Unavailable [phone] [employer] Unavailable [phone] [employer] Unavailable [phone] [place], Diana Unavailable [phone] CHELSIE MEYER Unavailable [phone] Reason for Referral Not Available Allergies, adverse [...] No Data Available B-D PEN NDL SHRT 10GM5ZO(03/19 6) SHAW USE DIRECTED TO ADMINISTER INSULIN [...] Service Diagnosis/Co mplaint Medication List Documented (1159F) [facility] Medication List Documented (1159F) [facility] Medication List Documented (1159F) [facility] Medication List Documented (1159F) [facility] [place] Medication List Documented (1159F) [facility] [place] Medication List Documented (1159F) [facility] [place] Medication List Documented (1159F) [facility] [place] Medication List Documented (1159F) [facility] [place]2022 Type 2 diabetes mellitus wit h diabetic chronic kidney diseaseChronic kidney disease, stage 3 unspecifiedChronic obstructive pulmonary disease, unspecifiedHyp hrt & chr kdny dis w hrt fail and stg 1-4/unsp chr kdnyHeart failure, unspecifiedHyperlipidemia, unspecifiedMajor depressive disorder, single episode, unspecifiedUnspecified osteoarthritis, unspecified site No Data Available [facility] [place]2022 Unspecified osteoarthritis, unspecified siteOther chronic painHeart failure, unspecifiedChronic obstructive pulmonary disease, unspecified No Data Available [facility] [place] 10[place]18[place]2022 Unspecified osteoarthritis, unspecified siteOther chronic pain No Data Available [facility] [place] 01/02/2023 Cholecystitis, unspecified No Data Available [facility] [place] 01/02/2023 Vital Signs Date of Collection Vitals 2022-09-11 07:40:43 Height - 165.1 cmWei ght - 109.32 kgBody Mass Index (BMI) - 40.1 kg/m2BP Diastolic - 84.0 mm[Hg]BP Systolic - 170.0 mm[Hg]Heart Rate - 88.0 /min Social History Social History Social History Observation Description Effec tive Time Current Smoking Status Never smoker 9 Sex Female History of Procedures Procedures Service [...] (do not use for phone, instead use 51169-88) 46569 2022-09-11 No Data Available No Data Availa ble No Data Available 46200 2022-09-22 No Data Available No Data Available No Data Available 63548 2022-10-18 No Data Available No Data Available No Data Available 76950 2023-01-02 No Data Available No Data Available [...] E ducation to avoid future hospitalization: Call [facility] if symptoms of illness develop. Cholecystitis [...] Cholecystitis [K81.9 ]> Pt will f/u with [facility] to schedule OP f/u for discussion of [...] hospital course: 12/20/22- 12/22/22Pt was seen at [facility] for chest and abdominal pain. She [...] BY MOUTH ONCE QHSB-D PEN NDL SHRT 58YD6LO(04/03) SHAW sig: USE DIRECTED TO ADMINISTER INSULIN [...]
--- OUTSIDE RECORDS SUMMARY | 2025-02-24 12:38 | XMS_ITS | Continuity of Care Document ---
Author Organization [facility]. If a dditional information is needed, contact Health Information Management at [phone] Address [address] [place] [address] Phone Care Team Providers Care Biofuels Manager Name Role Phone Unavailable Unavailable Unavailable Unavailable Unavailable Unavailable Unavailable Unavailable Unavailable Unavailable Unavailable Unavailable Unavailable Unavailable Unavailable Unavailable Unavailable Unavailable Problems Disorder of toe Onset:16-Mar-2024 Talha Ackerman APRN Chest pain Onset:11-Jan-2015 Allergies and Adverse Reactions No Known Drug Intolerances(A llergy) Onset: 11-Jan-2015 Reaction:UNKNOWN Social History Smoking Status Never smoked tobacco Recorded: 16-Mar-2024 Vital Signs 16-Mar-2024 13:32 Xdiaaibyjob09.7f Comments:97.7 Pulse70 Comments:70 Respiratory Rate16 Comments:16 O2 SAT99% Comments:99 BP Vxqpczgd062oe[Hg] Comments:16 4 BP Ujwgkjtge34ny[Hg] Comments:74 Height5.5[ft_us] Comments:5 Lmvtvy81.455kg Comments:95.455 16-Mar-2024 13:32 ZUH45li/m2 Comments:34.0 Encounters Emergency Encounter Reason:RIGHT FOOT TOE PAIN Encounter Diagnosis:Exposure to other specified factors, initial encounter,Blister (nonthermal), right great toe, initial encounter 16-Mar-2024 13:[id number]-0845 13:50 Deepika Feng MD (Attending) [facility] Discharge Disposition:Discharged to home or self care (routine discharge) ? ? ? Talha Ackerman APRN-16-Mar-2024 [facility] ([facility])EMERGENCY PROVIDER REPORTREPORT#:[id number] REPORT STATUS: SignedDATE:03/16/24 TIME: 1333PATIENT: TALIA WATTS UNIT #: [id number]#: [id number] ROOM/BED:AGE: 73 SEX: F PCP PHYS: Undefined ProviderSERVICE AUTHOR: TINO HIGHTOWER* ALL edits or amendments must be made on the electronic/computer document *TINO HIGHTOWER 03/16/24 1333:HPI-General IllnessGeneralInitial Greet Date/Time 03/16/24 1310PresentationChief Complaint __ (Right great toe blister)Free Text HPI NotesFree Text HPI [id number]-[id number] female presents emergency department today for reports of a blisterunderneath her right great toe. Patient reports she has diabetes has been usingmedihoney reports she is from [place] it has not seen her primary care [...] MidLv Saw Pt AloneI have reviewed the PA/TOBACCO ACREAGE MEASURER's note and plan of care. I was [...] patient's visit. at 1401 at 0957RPT #: [id number] OF REPORT Plan of Treatment Based on [...]
[2025-02-24 18:59] LABS: Hematocrit 31.3 % (37.0-47.0); Hemoglobin 10.2 g/dl (12.0-16.0); Mean Corpuscular HGB Conc 32.6 g/dl (31.0-35.0); Mean Corpuscular Hemoglobin 27.7 pg (27.0-33.0); Mean Corpuscular Volume 85.1 fL (80.0-98.0); Mean Platelet Volume 11.3 fL (9.4-12.3); Platelet Count 247 X10*3/uL (160-400); Red Blood Count 3.68 X10*6/uL (4.20-5.50); Red Cell Distribution Width 16.1 % (11.0-16.0); White Blood Count 6.4 X10*3/uL (4.8-10.8)
[2025-02-24 19:13] LABS: Anion Gap 16 (12-20); Blood Urea Nitrogen 49 mg/dL (9-16); Calcium 9.1 mg/dL (8.4-10.2); Carbon Dioxide 23 mmol/L (22-29); Chloride 100 mmol/L (96-108); Estimated Glomerular Filt Rate 15; Glucose Random 265 mg/dL (60-115); Iron 50 mcg/dL (30-160); Percent Iron Saturation 20 % (15-50); Phosphorus 4.6 mg/dL (2.7-4.5); Potassium 3.7 mmol/L (3.3-5.1); Sodium 135 mmol/L (135-145); Total Iron Binding Capacity 255 mcg/dL (228-428); Unsaturated Iron Binding 205 ug/dL
[2025-02-24 19:29] LABS: Ferritin 120 ng/mL (10-250)
[2025-02-24 19:35] LABS: Parathyroid Hormone Intact 297.3 pg/mL (8.7-77.1)
== END 2025-02-24 10:35 | disposition home or self-care (01) ==
LOC: HO.HKASLDS 10:34
PROVIDERS: Visit Provider Internal Medicine Hypertension Specialist
DX: E11.22 Type 2 diabetes mellitus with diabetic chronic kidney disease (principal); Z79.4 Long term (current) use of insulin; D63.1 Anemia in chronic kidney disease; N18.4 Chronic kidney disease, stage 4 (severe)
CPT/HCPCS: 36415; 80048; 82728; 83540; 83970; 84100; 85027

== ENCOUNTER 2025-02-26 10:57 | Outpatient (AMB) | payer OTHER, SELFPAY ==
--- NOTE | 2025-02-26 10:59 | HO.NEPHOV ---
Vital Signs 02/26/25 11:00 Height 5 ft 6 in Weight 201 lb BMI 32.4 BP 152/64 H Blood Pressure Location Lt brachial Position Sitting Pulse 68 Pulse Source Pulse Oximeter Pulse Oximetry (%) 100 Oxygen Delivery Method Room Air Intake Visit Reasons: Abn labs/ per MD Accompanied by: Other Relationship Allergies No Known Allergies Allergy (Verified 02/26/25 11:02) Do you need a note to return to daycare/school/sports/work: No HPI Comments Details: 73-year-old pleasant woman with a history of diabetes mellitus for more than 35 years who was at chronic kidney disease. She was seen today as an urgent visit given rise in serum creatinine. She is a long filler cigar roller machine diabetic. She has history of congestive heart failure and had been on Entresto which has been discontinued. She denies CP, SOB, PND or orthopnea, nausea, vomiting or worsening edema. She has H/O open heart surgery. She denies any uremic symptoms. Her serum creatinine has gone over 3.05 PFSH Medical History (Updated 02/26/25 @ 16:04 by Carlos Cornejo MD) Chronic kidney disease Degenerative joint disease (DJD) of hip Cataract Bunion Fatty liver DJD (degenerative joint disease), lumbar DJD (degenerative joint disease), cervical Diabetes mellitus type 2 with neurological manifestations Vitamin D deficiency Urinary incontinence Allergic rhinitis GERD (gastroesophageal reflux disease) Depression Diabetic retinopathy Hypertension Hyperlipidemia Diabetic nephropathy Surgical History History of cholecystectomy (~09/2024) History of open heart surgery (~02/2023) History of adjustable gastric banding Social History Patient Tobacco Use Status: Never used Tobacco Review of Systems Const All systems reviewed & are unremarkable except as noted in HPI and below Physical Exam Vital Signs: Last Vital Signs Pulse 68 02/26/25 11:00 BP 152/64 H 02/26/25 11:00 Pulse Ox 100 02/26/25 11:00 Oxygen Delivery Method Room Air 02/26/25 11:00 BMI result Body Mass Index 32.4 Const General: comfortable and no acute distress Orientation/consciousness: patient oriented x3 HEENT Head: Yes normocephalic Mouth: Normal oral and palatal mucosa present Eyes EOM: EOMs intact bilaterally Neck Neck: Yes supple Resp Auscultation: clear to auscultation bilaterally Cardio Jugular venous distension: no JVD Rate: regular rate GI Palpation (GI): Soft to palpation Auscultation: normal bowel sounds General: Yes no CVA tenderness Back/Spine/Pelvis Back: no CVA tenderness Skin General skin exam: no rashes or lesions noted Neuro General: patient oriented x3 and moves all extremities Results Reviewed Nephrology Results: Hgb 10.2 g/dl (12.0-16.0) L 02/24/25 WBC 6.4 X10*3/uL (4.8-10.8) 02/24/25 Plt Count 247 X10*3/uL (160-400) 02/24/25 Sodium 135 mmol/L (135-145) 02/24/25 Potassium 3.7 mmol/L (3.3-5.1) 02/24/25 Chloride 100 mmol/L (96-108) 02/24/25 Carbon Dioxide 23 mmol/L (22-29) 02/24/25 BUN 49 mg/dL (9-16) H 02/24/25 Creatinine 3.05 mg/dL (0.5-1.4) H 02/24/25 Calcium 9.1 mg/dL (8.4-10.2) 02/24/25 Phosphorus 4.6 mg/dL (2.7-4.5) H 02/24/25 PTH Intact 297.3 pg/mL (8.7-77.1) H 02/24/25 Assessment & Plan Assessment & Plan (1) Diabetes mellitus with chronic kidney disease: Code(s): E11.22 - Type 2 diabetes mellitus with diabetic chronic kidney disease Category: Medical Qualifiers: Chronic kidney disease stage: stage 4 (severe) Diabetes mellitus half-way insulin use: with long filler cigar roller machine use Diabetes mellitus type: type 2 Qualified Code(s): E11.22 - Type 2 diabetes mellitus with diabetic chronic kidney disease; N18.4 - Chronic kidney disease, stage 4 (severe); Z79.4 - director long term care (current) use of insulin (2) JERZY (acute kidney injury): Code(s): N17.9 - Acute kidney failure, unspecified Category: Medical (3) CKD stage 4 due to type 2 diabetes mellitus: Code(s): E11.22 - Type 2 diabetes mellitus with diabetic chronic kidney disease; N18.4 - Chronic kidney disease, stage 4 (severe) Category: Medical (4) Hypertension: Code(s): I10 - Essential (primary) hypertension Category: Medical Qualifiers: Hypertension type: primary hypertension Qualified Code(s): I10 - Essential (primary) hypertension (5) Anemia in chronic kidney disease: Code(s): N18.9 - Chronic kidney disease, unspecified; D63.1 - Anemia in chronic kidney disease Category: Medical Qualifiers: Chronic kidney disease stage: stage 4 (GFR 15-29) Qualified Code(s): N18.4 - Chronic kidney disease, stage 4 (severe); D63.1 - Anemia in chronic kidney disease Plan 73-year-old woman with a history of longstanding diabetes mellitus and coronary disease with stage IV CKD from underlying diabetic kidney disease. JERZY may be due to change in hemodynamic status. Differential is progression of her renal disease. I reduced her lasix to 80 mg daily alternating with 40 mg every other day.Her BP is at goal at home now. She has been getting Retacrit through our office. She is aware about renal replacement needs if her renal functions continue to decline. Discussed Dialysis options. Need to refer for home dialysis evaluation/ education. F/U Dr De Luna next week Orders: Orders Creatinine 1 Week E11.22 - Type 2 diabetes mellitus with diabetic chronic kidney disease, N18.4 - Chronic kidney disease, stage 4 (severe), Z79.4 - director long term care (current) use of insulin Blood Urea Nitrogen 1 Week E11.22 - Type 2 diabetes mellitus with diabetic chronic kidney disease, N18.4 - Chronic kidney disease, stage 4 (severe), Z79.4 - director long term care (current) use of insulin Electrolytes 1 Week E11.22 - Type 2 diabetes mellitus with diabetic chronic kidney disease, N18.4 - Chronic kidney disease, stage 4 (severe), Z79.4 - director long term care (current) use of insulin Coding Level of Care Code Est Pt Level 4 (31231) Diagnoses Type 2 diabetes mellitus with stage 4 chronic kidney disease, with long-term current use of insulin E11.22; N18.4; Z79.4 Chronic kidney disease stage: stage 4 (severe) Diabetes mellitus half-way insulin use: with long filler cigar roller machine use Diabetes mellitus type: type 2 JERZY (acute kidney injury) N17.9 CKD stage 4 due to type 2 diabetes mellitus E11.22; N18.4 Primary hypertension I10 Hypertension type: primary hypertension Anemia in stage 4 chronic kidney disease N18.4; D63.1 Chronic kidney disease stage: stage 4 (GFR 15-29)
[2025-02-26 11:00] VITALS: BP 152/64; PULSE 68; O2SAT 100; BMI 32.4
--- OUTSIDE RECORDS SUMMARY | 2025-02-26 13:09 | XMS_ITS | Data Portability ---
Author Organization [employer] [facility], [place] [facility] Address [address] [place] [id number] Care Team Providers Care Revenue Liaison Name Role Phone [facility] Primary Care Provider [phone] HIM CCA OTHER Assessment Encounter Date Assessment Date Assessment LastModified by Organization Details LastModified Time 10/02/2024 10/02/2024 As noted, we ochoa e called to see this patient regarding concerns of shob and weakness. Evaluation in the field was performed by my customer support assistant colleague, as noted above, I provided real-time [...] BMP, serum or plasma 2024 025 BALJIT [facility], [address] [place] [address], [id number] 21:34:24 Referral None recorded. Procedures None recorded. Surgeries None recorded. Imaging None recorded. Medication Orders furosemide 10 mg/mL injection solution 2024 025 chencho [id number], [address] [facility], [place], [place], [phone], 18:30:31 Patient TargetsNo targets recorded. Patient InstructionsNo [...] % 132 mm[Hg] 60 mm[Hg] Not Available [facility] - production 4 19:18:13 Date Recorded Respiratory rate Heart rate Body height Body weight Body temperature Oxygen saturation Oxygen saturation in Arterial blood by Pulse oximetry Systolic blood pressure Diastolic blood pressure Provider Name and Address Organization Details Last Updated DateTime 5 17 /min 76 /min 167.64 cm 36174.2 4 g 98.3 [degF] 94 % 94 % 160 mm[Hg] 60 mm[Hg] Not Available [employer] - production 5 17:47:35 Social History None recorded. Functional Status None recorded. Mental Status None recorded. Family History Nothing Reported. Medical History No medical history recorded. Gynecological HistoryNo gynecological history recorded. Obstetrics History GPAL:G 0 P 0 0 0 0 Past Encounters Encounter ID Performer Location Encounter Start Date Encounter Closed Date Diagnosis/Indication Diagnosis SNOMED-CT Code Diagnosis ICD10 Code Diagnosis Note [id number] Brina Hurd MD [facility] - [facility] [address] [place] [address] 10/02/2024 19:18:11 10/02/2024 23:20:15 Postoperative visit 133829789 Z48.89 Dyspnea 631482732 R06.00 [id number] Jasmyn Wooten MD Main - [address] [address] 02/02/2025 17:47:28 02/03/2025 19:30:55 Acute exacerbation of chronic congestive heart failure 298372824 I50.9 Health Concerns Section Related Observation LastModified by Organization Detai ls LastModified Time None Recorded Concern Status LastModified by Organization Details LastModified Time None Recorded Advance Directives Directive None Recorded Payers Encounter Date Sequence Insurance Name Policy Number Policy Braun Covered Member ID Braun Member ID Guarantor Name 10/02/2024 1 [facility] - DOS ON OR AFTER 2023 - DUAL ELIGIBLE - ASSISTED OPTIONS AND ONE CARE (MEDICARE REPLACEMENT/ADV ANTAGE - HMO) Milla Guzman [id number] Milla Guzman 02/02/2025 1 [facility] - DOS ON OR AFTER 2023 - DUAL ELIGIBLE - ASSISTED OPTIONS AND ONE CARE (MEDICARE REPLACEMENT/ADV ANTAGE - HMO) Milla Guzman [id number] Milla Guzman Notes Date Note Type Note [...] 2, Cholecystectomy Comments: gallbladder removal on Sunday. [place] sob since d/c from hospital yesterday. 02 [...] ..................... ..................... ..................... ..................... ..................... ..................... ............... Property Staff Accountant Note From Tyler Milligan: SC12 dispatched to [...] she recently had her gallbladder removed at [facility] on 09/30, patient reports that the [...] Patient baseline vital signs obtained as noted. [facility] was consulted and advised that the patient should go to the hospital to R/O a pulmonary embolism. Patient agreed to go to the hospital and [facility] called 911 for patient. Patient report given to transporting ambulance without incident. ..................... ..................... ..................... ..................... ..................... ..................... ............... [facility] Consulted: Brina Hurd ..................... ..................... ..................... ..................... ..................... ..................... ............... Disposition: Fulfilled Brina Hurd MD [address] [facility],[address], [place], [address], [employer] 10/02/2024 19:57:17 02/02/2025 text/html HPI: Pt c/o [...] flank pain- no urinary symptoms. Shaun RN Property Staff Accountant Organization Information for Clemente Koch [employer] Legal Name: [employer].? ? Address: [address] [place] [address] [place] [address], [employer]: Thomas BERMUDEZ No.: [id number] Property Staff Accountant POC Test Results from Clemente Koch - [...] ..................... ..................... ..................... ..................... ..................... ..................... ............... Property Staff Accountant Note From Clemente Koch: [facility] makes pt contact a 74 yo F CC of edema. [facility] obtains vital signs. PT explains she has [...] but diminished sounds. PT confirms no allergies. [facility] contacts [facility] and explains above mentioned. [facility] orders labs to be done to se kidney function and electrolyte levels. Labs are obtained via 20G IV in the right ac first attempt. Istat is performed and uploaded to [facility]. After discussing labs with [facility], [facility] orders 40mg OF furosemide IV, which is [...] for additional lasix. PT understands. MIH clear. [facility] Lab Orders: BMP, serum or plasma: Performed ..................... ..................... ..................... ..................... ..................... ..................... ............... [facility] Consulted: Jasmyn Wooten ..................... ..................... ..................... ..................... ..................... ..................... ............... Disposition: Kumar Wooten MD [address] [facility],[address], [place], [address], [employer] 02/03/2025 00:02:11 OBGyn Episode No OBEpisode recorded.
--- OUTSIDE RECORDS SUMMARY | 2025-02-26 13:09 | XMS_ITS ---
Author Name Sera Houser NP Address [address] [place] [address] Phone [phone] [facility] Care Team Providers Care Site Head Name Role Phone Sera Houser Unavailable [phone] [facility] Unavailable Unavailable Unavailable [phone] Unavailable Unavailable Unavailable Unavailable Unavailable [phone] Unavailable Unavailable [phone] Unavailable Unavailable [phone] Unavailable Unavailable [phone] Unavailable Unavailable [phone] Unavailable Unavailable [phone] Unavailable Unavailable [phone] Unavailable Unavailable [phone] Unavailable Unavailable [phone] [employer] Unavailable [phone] [employer] Unavailable [phone] [place], Diana Unavailable [phone] CHELSIE MEYER Unavailable [phone] Reason for Referral Not Available Allergies, adverse [...] No Data Available B-D PEN NDL SHRT [id number](03/19 6) SHAW USE DIRECTED TO ADMINISTER INSULIN [...] Service Diagnosis/Co mplaint Medication List Documented (1159F) [facility]20[place] Medication List Documented (1159F) [facility] Medication List Documented (1159F) [facility] Medication List Documented (1159F) [facility] Medication List Documented (1159F) [facility] Medication List Documented (1159F) [facility] Medication List Documented (1159F) [facility]20[place] Medication List Documented (1159F) [facility]2022 Type 2 diabetes mellitus wit h diabetic chronic kidney diseaseChronic kidney disease, stage 3 unspecifiedChronic obstructive pulmonary disease, unspecifiedHyp hrt & chr kdny dis w hrt fail and stg 1-4/unsp chr kdnyHeart failure, unspecifiedHyperlipidemia, unspecifiedMajor depressive disorder, single episode, unspecifiedUnspecified osteoarthritis, unspecified site No Data Available [facility]2022 Unspecified osteoarthritis, unspecified siteOther chronic painHeart failure, unspecifiedChronic obstructive pulmonary disease, unspecified No Data Available [facility] 10[place]18[place]2022 Unspecified osteoarthritis, unspecified siteOther chronic pain No Data Available [facility] 01/02/2023 Cholecystitis, unspecified No Data Available [facility] 01/02/2023 Vital Signs Date of Collection Vitals 2022-09-11 07:40:43 Height - 165.1 cmWei ght - 109.32 kgBody Mass Index (BMI) - 40.1 kg/m2BP Diastolic - 84.0 mm[Hg]BP Systolic - 170.0 mm[Hg]Heart Rate - 88.0 /min Social History Social History Social History Observation Description Effec tive Time Current Smoking Status Never smoker 2025-02-17 0 Sex Female History of Procedures Procedures Service [...] (do not use for phone, instead use 90870-96) 65937 2022-09-11 No Data Available No Data Availa ble No Data Available 09927 2022-09-22 No Data Available No Data Available No Data Available 41443 2022-10-18 No Data Available No Data Available No Data Available 17108 2023-01-02 No Data Available No Data Available [...] E ducation to avoid future hospitalization: Call [facility] if symptoms of illness develop. Cholecystitis [K81.9] [...] Cholecystitis [K81.9 ]> Pt will f/u with [facility] to schedule OP f/u for discussion [...] hospital course: 12/20/22- 12/22/22Pt was seen at [facility] for chest and abdominal pain. She [...] BY MOUTH ONCE QHSB-D PEN NDL SHRT [id number](04/03) SHAW sig: USE DIRECTED TO ADMINISTER INSULIN [...]
--- OUTSIDE RECORDS SUMMARY | 2025-02-26 13:10 | XMS_ITS | Clinical Summary ---
Author Organization [address] [facility] Address [address] [place] [address] Phone Care Team Providers Care Engine Head Repairer Name Role Phone Dionisio Romano MD Primary Care Provider [phone] Allergies No known active allergies Medications methenamine [...] 24 hr tabletIndicatio ns:Coronary artery disease involving conf[place] coronary artery of [place] heart without angina pectoris Take 1 tablet [...] Date Diagnosed Date (HFpEF) heart failure with p reserved ejection fraction ([facility] V24, [facility] V28) 12/12/2024 Assessment & Plan (12/12/2024 10:28 AM [...] echocardiogram in September 2024 while hospitalized at [facility] which was reviewed. Abdominal pain 12/09/2024 Hypotension 12/09/2024 Atypical chest pain 12/19/2023 Assessment & Plan (01/12/2025 11:16 AM EST): Stress test reassuring without perfusion abnormalities chest discomfort perhaps musculoskeletal also probably was related to Novoa catheter. I reassured her. Assessment & Plan (12/12/2024 10:28 AM EST): See CAD plan. Orders: Nuclear stress test with myocardial perfusion; Future Heart failure ([facility] V24, [facility] V28) 024 Pulmonary edema 12/19/2023 Edema 09/25/2023 Coronary artery disease invo lving confederated sal[place] coronary artery of [place] heart without angina pectoris 03/26/2023 Overview (09/04/2024): [...] emission tomography (PET) scan 02/05/2023 Atypical angina (CMS/HCC V24) 12/27/2022 Overview (09/04/2024): Last Assessment & Plan: [...] Allergic rhinitis 02/13/2017 Diabetes mellitus type 2 wit h neurological manifestations (CMS/HCC V24, CMS/HCC V28) 02/13/2017 DJD (degenerative joint disease), cervical 02/13 DJD (degenerative joint disease), lumbar 017 Fatty liver 02/13/2017 GERD (gastroesophageal reflux disease) 7 Type 2 diabetes mellitus wit h cataract ([facility] V24, [facility] V28) 02/13/2017 Urinary incontinence 02/13/2017 Venous insufficiency 02/13/2017 Overview [...] D deficiency 02/13/2017 Depression 02/08/2017 Diabetic neuropathy ([facility] V24, [facility] V28) 0 02/08/2017 Diabetic retinopathy ([facility] V24, [facility] V28) 02/08/2017 Hyperlipidemia 02/08/2017 Overview (09/04/2024): Last Assessment [...] Team Description 01/08/2025 10:30 AM EST Telemedicine [facility] Cardiology [facility] [address] [place] [address] [address] [place] [address] Michael Torrez MD Atypical chest pain (Primary Dx); Coronary artery disease involving [place] coronary artery of [place] heart without angina pectoris 01/06/2025 Telephone [facility] [address] [place] [address] Dr [address] [place] [address] Michael Torrez MD Appointment 12/25/2024 8:00 AM EST Ancillary Procedure [facility] [address] [place] [phone] Coronary artery disease involving [place] coronary artery of [place] heart without angina pectoris; Atypical chest pain 12/16/2024 9:00 AM EST Office Visit [facility] [place] [address] [place] [phone] Dionisio Romano MD Routine medical exam (Primary Dx); 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 V24, CMS/HCC V28); Primary hypertension; Stage 3b chronic kidney disease (CMS/HCC V24, CMS/HCC V28); Coronary artery disease involving [place] coronary artery of [place] heart without angina pectoris 12/12/2024 8:10 AM EST Office Visit [facility] Cardiology [facility] [address] [place] [address] Dr [address] [place] [address] Christiane Sanders NP Coronary artery disease involving conf[place] coronary artery of conf[place] heart without angina pectoris (Primary Dx); Atypical chest pain; Chronic heart failure with preserved ejection fraction ([facility] V24, [facility] V28); Hypertension, unspecified type; Hyperlipidemia, unspecified hyperlipidemia type from Last 3 Months Immunizations Name Administration [...] PROCEDURE: HISTORICAL ROTATOR CUFF REPAIR APPENDECTOMY PROCEDURE: IN APPENDECTOMY CATARACT EXTRACTION PROCEDURE: HISTORICAL CATARACT REMOVAL OTHER SURGICAL HISTORY PROCEDURE: ---- OTHER ----; COMMENT: venous ligation LAPAROSCOPIC GASTRIC BANDING PROCEDURE: LAP ADJUSTABLE GASTRIC BAND CORONARY ARTERY BYPASS GRAFT Medical History Medical History Date Comments Diabetic neuropathy ([facility] V24, [facility] V28) 02/08/2017 DX:Diabetic neuropathy ([facility]) Hyperlipidemia 02/08/2017 DX:Hyperlipidemi a Hypertension 02/08/2017 DX:Hypertension Diabetic retinopathy ([facility] V24, [facility] V28) 02/08/2017 DX:Diabetic retinopathy ([facility] ) Depression 02/08/2017 DX:Depression History of adjustable gastric banding 02/13/2017 DX:History of adjustable gastric banding Diabetes mellitus type 2 wit h neurological manifestations ([facility] V24, [facility] V28) 02/13/2017 DX:Diabetes mellitus type 2 with neurological manifestations (HCC) Type 2 diabetes mellitus wit h eye manifestations ([facility] V24, [facility] V28) 02/13/2017 DX:Type 2 diabetes mellitus with eye manifestations (HCC) Type 2 diabetes mellitus wit h cataract ([facility] V24, [facility] V28) 02/13/2017 DX:Type 2 diabetes mellitus with cataract [...] Insulin dependent type 2 destini betes mellitus ([facility] V24, [facility] V28) DX:Insulin depende nt type 2 diabetes mellitus (HCC) RUQ pain DX:RUQ pain Anemia Diabetes ([facility] V24, [facility] V28) Family History Medical History Relation Name Comments [...] EDT Office Visit [facility] - [place] [address] [facility] [address] [place] [address] Dionisio Romano MD [address] [facility] [address] [place] [address] Health Maintenance Due Date Last [...] EDT Chronic kidney disease, stage IV (severe) (CMS/HCC V24, CMS/HCC V28) NM LEXISCAN STRESS TEST W/ MYOCARDIAL PERFUSION Routine 12/25/2024 10:26 AM EST Coronary artery disease involving conf[place] coronary artery of conf[place] heart without angina pectoris Atypical chest pain BASIC METABOLIC PANEL Routine 12/16/2024 9:48 AM EST 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 V24, CMS/HCC V28) Primary hypertension MG MAMMO DIGITAL DIAGNOSTIC W ISAAC BILAT Routine 11/13/2024 8:23 AM EST Category 3 mammography result with short follow-up interval suggested for probably benign finding DIABETES EYE EXAM Routine 05/12/2024 COLONOSCOPY Routine 04/16/2024 DIABETES FOOT EXAM Routine 10/09/2023 URINE ALBUMIN CREATININE RATIO Routine 06/21/2023 HEPATITIS C SCREENING Routine 02/27/2023 [facility] DEXA AXIAL SKELETON Routine 12/05/2022 5:38 PM EST Encounter for screening for osteoporosis HEMOGLOBIN A1C Routine 06/01/2021 LIPID PANEL Routine 06/01/2021 from Last 3 Months or Most Recently Relevant to Health Maintenance Results * (ABNORMAL) Complete blood count (01/26/2025 12:00 PM EDT) [facility] Signature WBC 6.0 4.8 - 10.8 K/mcL LAB HEMETOLOGY METHOD 01/26/2025 2:29 PM EDT [facility] RBC 3.20(L) 3.80 - 4.80 M/mcL LAB HEMETOLOGY METHOD 01/26/2025 2:29 PM EDT [facility] Hemoglobin 9.0(L) 11.5 - 16.0 g/dL LAB HEMETOLOGY METHOD 01/26/2025 2:29 PM EDT [facility] Hematocrit 28.7(L) 35.0 - 47.0 % LAB HEMETOLOGY METHOD 01/26/2025 2:29 PM EDT [facility] MCV 89.4 79.0 - 98.0 FL LAB HEMETOLOGY METHOD 01/26/2025 2:29 PM EDT [facility] MCH 28.0 27.0 - 32.0 pcg LAB HEMETOLOGY METHOD 01/26/2025 2:29 PM EDT [facility] MCHC 31.4(L) 32.0 - 37.0 g/dL LAB HEMETOLOGY METHOD 01/26/2025 2:29 PM EDT [facility] RDW 17.5(H) 11.0 - 15.0 % LAB HEMETOLOGY METHOD 01/26/2025 2:29 PM EDT [facility] Platelets 245 130 - 400 K/mcL LAB HEMETOLOGY METHOD 01/26/2025 2:29 PM EDT [facility] MPV 11.8(H) 7.0 - 11.0 FL LAB HEMETOLOGY METHOD 01/26/2025 2:29 PM EDT [facility] NRBC 0.0 <1.0 % LAB HEMETOLOGY METHOD 01/26/2025 2:29 PM EDT [facility] NRBC Absolute 0.00 <0.10 K/mcL LAB HEMETOLOGY METHOD 01/26/2025 2:29 PM EDT [facility] Blood Venous blood specimen / Unknown Venipuncture / Unknown 01/26/2025 12:00 PM EDT 01/26/2025 12:00 PM EDT Martín De Luna MD LAB BLOOD ORDERABL ES Final Result [facility] [address] [place] [address], * NM LEXISCAN STRESS TEST W/ MYOCARDIAL [...] mmol/L LAB CHEMISTRY METHOD 12/16/2024 2:56 PM [facility] Potassium 4.1 3.5 - 5.5 mmol/L LAB CHEMISTRY METHOD 12/16/2024 2:56 PM [facility] Chloride 104 96 - 110 mmol/L LAB CHEMISTRY METHOD 12/16/2024 2:56 PM [facility] CO2 29 21 - 32 mmol/L LAB CHEMISTRY METHOD 12/16/2024 2:56 PM [facility] Anion Gap 4 3 - 11 LAB CHEMISTRY METHOD 12/16/2024 2:56 PM [facility] Glucose 223(H) 70 - 100 mg/dL LAB CHEMISTRY METHOD 12/16/2024 2:56 PM [facility] BUN 36(H) 5 - 25 mg/dL LAB CHEMISTRY METHOD 12/16/2024 2:56 PM [facility] Creatinine 2.33(H) 0.50 - 1.10 mg/dL LAB CHEMISTRY METHOD 12/16/2024 2:56 PM EST [facility] eGFR 22(L) >=60 mL/min/1. 73m2 LAB CHEMISTRY METHOD 12/16/2024 2:56 PM EST [facility] Comment:Calculation based on the??Chronic Kidney Disease Epidemiology Collaboration (CKD-EPI) equation refit??without adjustment for race. BUN/Creatinine Ratio 15.5 LAB CHEMISTRY METHOD 12/16/2024 2:56 PM EST [facility] Calcium 9.2 8.5 - 10.5 mg/dL LAB CHEMISTRY METHOD 12/16/2024 2:56 PM EST [facility] Blood Venous blood specimen / Unknown Venipuncture / Unknown 12/16/2024 9:48 AM EST 12/16/2024 9:48 AM EST us Dionisio Romano MD LAB BLOOD ORDERABLES Final Res ult [facility] [address] [place] [address], [place] [phone] * MG Mammo Digital Diagnostic w Isaac bilat (11/13/2024 8:23 AM EST) Anatomical Region Laterality Modality Breast Bilateral Mammography 11/13/2024 8:11 AM EST Impressions 11/13/2024 8:21 AM EST Benign. BI-RADS CATEGORY: 2 - BENIGN RECOMMENDATION: Screening bilateral mammogram is recommended in 1 year. Mammo Location: [facility], [address] [place] [id number] -------- FINAL REPORT -------- Dictated By: Daniel Gregory Dictated Date: 11/13/2024 08:11 ET Assigned Physician: Daniel Gregory Reviewed and Electronically Signed By: Daniel Gregory Signed Date: 11/13/2024 08:21 ET Workstation ID: [id number] Transcribed By: Self Edit Transcribed Date: 11/13/2024 [...] and CC projection is performed in the [employer]he 2000-D unit. ??Computer aided detection utilizing the [...] MLO and CC projection is performed in theBrightLockerographe 2000-D unit. Computer aided detection utilizing the iCADsystem was utilized. FINDINGS: The breasts are again [...] is recommended in 1 year. Mammo Location: [facility], [address] [place] [id number] -------- FINAL REPORT -------- Dictated By: Daniel Gregory Dictated Date: 11/13/2024 08:11 ET Assigned Physician: Daniel Gregory Reviewed and Electronically Signed By: Daniel Gregory Signed Date: 11/13/2024 08:21 ET Workstation ID: [id number] Transcribed By: Self Edit Transcribed Date: 11/13/2024 08:11 ET Dionisio Romano MD IMG BI PROCEDURES Final Result * Diabetes Eye Exam (05/12/2024) [facility] Diabetes: Annual Retina Eye Exam abstracted Historical Provider HEALTH MAINTENANCE Final Result * Colonoscopy (04/16/2024) [facility] Colonoscopy no interpretation , abstracted Anatomical Region Laterality Modality Other Historical Provider HEALTH MAINTENANCE Final Result * Diabetes Foot Exam (10/09/2023) [facility] Diabetes: Annual Foot Exam abstracted Historical Provider HEALTH MAINTENANCE Final Result * Urine Albumin Creatinine Ratio (06/21/2023) [facility] Urine Albumin Creatinine Ratio abstracted Historical Provider HEALTH MAINTENANCE Final Result * Hepatitis C Screening (02/27/2023) [facility] Hepatitis C Screening abstracted Historical Provider HEALTH MAINTENANCE Final Result * [facility] DEXA AXIAL SKELETON (12/05/2022 5:38 PM EST) Anatomical Region Laterality Modality Mammography 12/05/2022 11:1 5 AM EST Narrative 12/05/2022 5:[address] [facility] Diagnostic Imaging Department [address] [place] [address] Patient: ??TALIA WATTS ?/Age/Sex: 1950 - 71 - F Unit#: ??[id number] ? Location/Status: ??SPDIMAM/REG CLI ? Mnemonic/Ordering Site: ??MAMDEXAAX/SPMAM Ordering Physician: ??DIONISIO ROMANO MD Lucrecia Dexa Axial Skeleton - 12/05/22 - History: Low estrogen state due to menopause. On omeprazole. Comparison: 08/10/14 Findings: Bone densitometry is performed utilizing dual energy x-ray absorptiometry (DXA) in the [place] [employer] unit. The lumbar spine and proximal femora [...] 0.1 percent. IMPRESSION: Normal bone mineral density. [id number] Dictating Physician: ??LATRICE SIMS MD Electronically Signed by: ??LATRICE SIMS MD Dic Date/Time: ??12/05/22 1737 Sign date/Time: ??12/05/22 1738 Procedure Note Latrice Sims MD - 12/21/2023 [facility] Diagnostic Imaging Department [address] [place] [address] Patient: TALIA WATTS /Age/Sex: 1950 - 71 - F Unit#: [id number] Location/Status: SPDIMAM/REG CLI Mnemonic/Ordering Site: MAMDEXAAX/SPMAM Ordering Physician: DIONISIO ROMANO MD [facility] Dexa Axial Skeleton - 12/05/22 - History: Low estrogen state due to menopause. On omeprazole. Comparison: 08/10/14 Findings: Bone densitometry is performed utilizing dual energy x-ray absorptiometry(DXA) in the [employer] unit. The lumbar spine and proximal femora [...] 0.1 percent. IMPRESSION: Normal bone mineral density. [id number] Dictating Physician: LATRICE SIMS MD Electronically Signed by: LATRICE SIMS MD Dic Date/Time: 12/05/221736 Sign date/Time: 12/05/221737 Dionisio Romano MD IMG BI PROCEDURES Final Result * (ABNORMAL) Hemoglobin A1c (06/01/2021) Hemoglobin A1C 9.1(A) <=6.5 % Blood Venous blood specimen / Unknown Historical Provider LAB BLOOD ORDERABLES Adilia l Result * Lipid panel (06/01/2021) LDL/HDL Ratio 3 0 - 4 Triglycerides [...] ID:[id number] Group ID:[id number] Type:Not on file Address: [place] [address] [address] [address] Care Teams Engine Head Repairer Relationship Specialty Start Date End Date Dionisio Romano MD [address] [place] [phone] PCP - General Internal Medicine 02/25/13
== END 2025-02-26 11:50 | disposition home or self-care (01) ==
LOC: HO.HKAS 10:57
PROVIDERS: PCP Internal Medicine; Visit Provider Internal Medicine Nephrology
DX: E11.22 Type 2 diabetes mellitus with diabetic chronic kidney disease (principal); N18.4 Chronic kidney disease, stage 4 (severe); Z79.4 Long term (current) use of insulin; N17.9 Acute kidney failure, unspecified; I12.9 Hypertensive chronic kidney disease with stage 1 through stage 4 chronic kidney disease, or unspecified chronic kidney disease; D63.1 Anemia in chronic kidney disease
CPT/HCPCS: 99214

== ENCOUNTER → 2025-02-26 10:57 | Outpatient (BNVA) | payer OTHER, SELFPAY | PROVIDERS: PCP Internal Medicine; Visit Provider Internal Medicine Nephrology | DX: E11.22 Type 2 diabetes mellitus with diabetic chronic kidney disease (principal); I12.9 Hypertensive chronic kidney disease with stage 1 through stage 4 chronic kidney disease, or unspecified chronic kidney disease; N18.4 Chronic kidney disease, stage 4 (severe); N17.9 Acute kidney failure, unspecified; D63.1 Anemia in chronic kidney disease; Z79.4 Long term (current) use of insulin | CPT/HCPCS: 99212 ==

== ENCOUNTER 2025-03-03 11:22 | Outpatient (REF) | payer OTHER, SELFPAY ==
--- OUTSIDE RECORDS SUMMARY | 2025-03-03 14:03 | XMS_ITS | Continuity of Care Document ---
Author Organization [facility] Address [address] [place] [address] [address] [place] [address] Phone Care Team Providers Care Rodbuster Name Role Phone Elbert AVILES, JAMEEL, MIRZA, González Unavailable U navailable Procedures Procedure Date Office/Oupt E&M New Pt 45 Mins- CT & [place] Duplex Scan-extrem Veins; Comp- [place] & [place] Advance Directives Directive Yes / No Effective Date File Name No Information Encounters Encounter Description Practice Location Reason(s) For Visit Diagnoses Date Provider Providers Copied on Encounter [facility], [address] [place] [address] Dr [address], [id number], [place] tel:[phone] [facility] No Information 4 Elbert AVILES, JAMEEL, MIRZA Claudio. [address] [address], [place], [place], [id number] , [place]. tel:[phone] Office/Oupt E&M New Pt 45 Mins- CT & [place] [facility], [address] [place] [address] Dr [address], [id number], [place] tel:[phone] [facility] Chronic venous hypertension (idiopathic) with other complications of bilateral lower extremityLymphe brenda, not elsewhere classifiedType 2 diabetes mellitus without complicationsRe stless legs syndromeEssenti al (primary) hypertensionCra mp and spasmLocalized edema 4 Elbert AVILES RVT, MIRZA Claudio. [address] [facility], [address], [place], [id number] , [place]. tel:[phone] Referring Provider: Diana Hamm, [address] [facility], [facility] [address], [place], [address]. tel:[phone] [facility], [address] [facility] [address], [place], [id number], tel:[phone] [facility] Chronic venous hypertension (idiopathic) with other complications of bilateral lower extremity 4 Elbert AVILES RVT, MIRZA Claudio. [address] [facility], [address], [place], [id number] , [place]. tel:[phone] Referring Provider: Diana Hamm, [address] [facility], [facility] [address], [place], [address]. tel:[phone] Family History Family Member Type Diagnosis Age At Onset No Information Payers Payer name Insurance type Covered democrat ID Krista fregoso(s) [facility] CI [id number] Social History Type Description Quantity Date Captured [...]
--- OUTSIDE RECORDS SUMMARY | 2025-03-03 14:03 | XMS_ITS | Data Portability ---
Author Organization [facility], [facility] - [facility] Address [address] [place] [id number] Care Team Providers Care General Assembler Installer Name Role Phone [facility] Primary Care Provider [phone] HIM CCA OTHER Assessment Encounter Date Assessment Date Assessment LastModified by Organization Details LastModified Time 10/02/2024 10/02/2024 As noted, we ochoa e called to see this patient regarding concerns of shob and weakness. Evaluation in the field was performed by my cloud services architect colleague, as noted above, I provided real-time [...] BMP, serum or plasma 2024 025 BALJIT [facility], [address] [place] [address], [id number] 21:34:24 Referral None recorded. Procedures None recorded. Surgeries None recorded. Imaging None recorded. Medication Orders furosemide 10 mg/mL injection solution 2024 025 chencho [id number], [address] [facility], [place], [place], [phone], 18:30:31 Patient TargetsNo targets recorded. Patient InstructionsNo [...] % 132 mm[Hg] 60 mm[Hg] Not Available [employer] - production 4 19:18:13 Date Recorded Respiratory rate Heart rate Body height Body weight Body temperature Oxygen saturation Oxygen saturation in Arterial blood by Pulse oximetry Systolic blood pressure Diastolic blood pressure Provider Name and Address Organization Details Last Updated DateTime 5 17 /min 76 /min 167.64 cm 77252.2 4 g 98.3 [degF] 94 % 94 % 160 mm[Hg] 60 mm[Hg] Not Available [employer] - production 5 17:47:35 Social History None recorded. Functional Status None recorded. Mental Status None recorded. Family History Nothing Reported. Medical History No medical history recorded. Gynecological HistoryNo gynecological history recorded. Obstetrics History GPAL:G 0 P 0 0 0 0 Past Encounters Encounter ID Performer Location Encounter Start Date Encounter Closed Date Diagnosis/Indication Diagnosis SNOMED-CT Code Diagnosis ICD10 Code Diagnosis Note [id number] Brina Hurd MD [facility] - [facility] [address] [place] [address] 10/02/2024 19:18:11 10/02/2024 23:20:15 Postoperative visit 453658768 Z48.89 Dyspnea 690092906 R06.00 [id number] Jasmyn Wooten MD Main - [address] [phone] 02/02/2025 17:47:28 02/03/2025 19:30:55 Acute exacerbation of chronic congestive heart failure 384668173 I50.9 Health Concerns Section Related Observation LastModified by Organization Detai ls LastModified Time None Recorded Concern Status LastModified by Organization Details LastModified Time None Recorded Advance Directives Directive None Recorded Payers Encounter Date Sequence Insurance Name Policy Number Policy Braun Covered Member ID Braun Member ID Guarantor Name 10/02/2024 1 [facility] - DOS ON OR AFTER 2023 - DUAL ELIGIBLE - LONG-TERM OPTIONS AND ONE CARE (MEDICARE REPLACEMENT/ADV ANTAGE - HMO) Milla Guzman [id number] Milla Guzman 02/02/2025 1 [facility] - DOS ON OR AFTER 2023 - DUAL ELIGIBLE - LONG-TERM OPTIONS AND ONE CARE (MEDICARE REPLACEMENT/ADV ANTAGE - HMO) Milla Guzman [id number] Milla Guzman Notes Date Note Type Note [...] 2, Cholecystectomy Comments: gallbladder removal on Sunday. [place] sob since d/c from hospital yesterday. 02 [...] ..................... ..................... ..................... ..................... ..................... ..................... ............... Underground Truck Operator Note From Tyler Milligan: [facility] dispatched [...] she recently had her gallbladder removed at [facility] on 09/30, patient reports that the swelling, [...] Patient baseline vital signs obtained as noted. [facility] was consulted and advised that the patient should go to the hospital to R/O a pulmonary embolism. Patient agreed to go to the hospital and [place] called 911 for patient. Patient report given to transporting ambulance without incident. ..................... ..................... ..................... ..................... ..................... ..................... ............... [facility] Consulted: Brina Hurd ..................... ..................... ..................... ..................... ..................... ..................... ............... Disposition: Fulfilled Brina Hurd MD [address] [facility],[address], [place], [address], [employer] 10/02/2024 19:57:17 02/02/2025 text/html HPI: Pt c/o [...] flank pain- no urinary symptoms. Shaun RN Underground Truck Operator Organization Information for Clemente Koch [place] Legal Name: [employer].? ? Address: [address] [place] [address] [place] [address], Gut Carrier: Thomas BERMUDEZ No.: [id number] Underground Truck Operator POC Test Results from Clemente Koch - [employer] iSTAT Chem8+ (18:05:40) Na: 137 mEq/L K: 4.0 mEq/L Cl: 106 mEq/L iCa: 1.09 mmol/L TCO2: 23 mmol/L Glu: 213 mg/dL BUN: 47 mg/dL Crea: 3.2 mg/dL Hct: 30 % Hb: 10.2 g/dL A mmol/L Attachments uploaded as part of this test result can be found under Documents section. ..................... ..................... ..................... ..................... ..................... ..................... ............... Underground Truck Operator Note From Clemente Koch: [facility] makes pt contact a 74 yo F CC of edema. [facility] obtains vital signs. PT explains she [...] but diminished sounds. PT confirms no allergies. [facility] contacts [facility] and explains above mentioned. [facility] orders labs to be done to se kidney function and electrolyte levels. Labs are obtained via 20G IV in the right ac first attempt. Istat is performed and uploaded to [facility]. After discussing labs with [facility], [facility] orders 40mg OF furosemide IV, which is [...] for additional lasix. PT understands. [facility] clear. [facility] Lab Orders: BMP, serum or plasma: Performed ..................... ..................... ..................... ..................... ..................... ..................... ............... [facility] Consulted: Jasmyn Wooten ..................... ..................... ..................... ..................... ..................... ..................... ............... Disposition: Kumar Wooten MD [address] [facility],[address], [place], [address], [facility] 02/03/2025 00:02:11 OBGyn Episode No OBEpisode recorded.
--- OUTSIDE RECORDS SUMMARY | 2025-03-03 14:03 | XMS_ITS ---
Author Name Sera Houser NP Address [address] [place] [address] Phone [phone] [facility] Care Team Providers Care Cloth Desizing Range Operator Chief Name Role Phone Sera Houser Unavailable [phone] [facility] Unavailable Unavailable Unavailable [phone] Unavailable Unavailable Unavailable Unavailable Unavailable [phone] Unavailable Unavailable [phone] Unavailable Unavailable [phone] Unavailable Unavailable [phone] Unavailable Unavailable [phone] Unavailable Unavailable [phone] Unavailable Unavailable [phone] Unavailable Unavailable [phone] Unavailable Unavailable [phone] [employer] Unavailable [phone] [employer] Unavailable [phone] [place], Diana Unavailable [phone] CHELSIE MEYER Unavailable [phone] Reason for Referral Not Available Allergies, adverse [...] No Data Available B-D PEN NDL SHRT [id number](03/19 6) SHAW USE DIRECTED TO ADMINISTER INSULIN [...] Service Diagnosis/Co mplaint Medication List Documented (1159F) [facility]20[place] Medication List Documented (1159F[place] [facility] Medication List Documented (1159F) [facility] Medication List Documented (1159F) [facility] Medication List Documented (1159F) [facility] Medication List Documented (1159F) [facility] Medication List Documented (1159F) [facility] [place] Medication List Documented (1159F) [facility] [place]2022 Type 2 diabetes mellitus wit h diabetic chronic kidney diseaseChronic kidney disease, stage 3 unspecifiedChronic obstructive pulmonary disease, unspecifiedHyp hrt & chr kdny dis w hrt fail and stg 1-4/unsp chr kdnyHeart failure, unspecifiedHyperlipidemia, unspecifiedMajor depressive disorder, single episode, unspecifiedUnspecified osteoarthritis, unspecified site No Data Available [facility] [place]2022 Unspecified osteoarthritis, unspecified siteOther chronic painHeart failure, unspecifiedChronic obstructive pulmonary disease, unspecified No Data Available [facility] [place]18[place]2022 Unspecified osteoarthritis, unspecified siteOther chronic pain No Data Available [facility] [place] 01/02/2023 Cholecystitis, unspecified No Data Available [facility] [place] 01/02/2023 Vital Signs Date of Collection Vitals 2022-09-11 07:40:43 Height - 165.1 cmWei ght - 109.32 kgBody Mass Index (BMI) - 40.1 kg/m2BP Diastolic - 84.0 mm[Hg]BP Systolic - 170.0 mm[Hg]Heart Rate - 88.0 /min Social History Social History Social History Observation Description Effec tive Time Current Smoking Status Never smoker 2025-02-17 6 Sex Female History of Procedures Procedures Service [...] (do not use for phone, instead use 85392-00) 30556 2022-09-11 No Data Available No Data Availa ble No Data Available [id number] 2022-09-22 No Data Available No Data Available No Data Available [id number] 2022-10-18 No Data Available No Data Available No Data Available 85742 2023-01-02 No Data Available No Data Available [...] E ducation to avoid future hospitalization: Call [facility] if symptoms of illness develop. Cholecystitis [...] Cholecystitis [K81.9 ]> Pt will f/u with [facility] to schedule OP f/u for [...] hospital course: 12/20/22- 12/22/22Pt was seen at [facility] for chest and abdominal pain. She [...] BY MOUTH ONCE QHSB-D PEN NDL SHRT [id number](04/03) SHAW sig: USE DIRECTED TO ADMINISTER INSULIN [...]
--- OUTSIDE RECORDS SUMMARY | 2025-03-03 14:03 | XMS_ITS | Clinical Summary ---
Author Organization 175 [facility] Address [address] [place] [address] Phone Care Team Providers Care Desktop Operator Name Role Phone Dionisio Romano MD Primary Care Provider [phone] Allergies No known active allergies Medications docusate sodium (COLACE) 100 mg capsule Take [...] Cough, Wheezing or Shortness of Breath. 11/10/20 Active fluticasone propionate (FLONASE) 50 mcg/actuation nasal spray 2 Sprays by Nasal route daily. Please spray 2 sprays in each nostrils daily for 3-4 weeks, then down to 1 spray in each nostril daily. 11/10/20 Active blood pressure monitor kit 1 Each [...] 24 hr tabletIndicati ons:Coronary artery disease involving [place] coronary artery of [place] heart without angina pectoris Take 1 tablet [...] DAILY 90 capsule 1 12/22/19 25 Active methenamine hippurate (HIPREX) 1 gram tablet TAKE 1 TABLET BY MOUTH TWICE DAILY 60 tablet 1 02/27/20 25 Active methenamine hippurate (HIPREX) 1 gram tablet Take 1 tablet (1 g total) by mouth 2 (two) times a day. 08/25/20 24 025 Discontinued Active Problems Problem Noted Date Diagnosed Date (HFpEF) heart failure with p reserved ejection fraction ([facility] V24, CMS/[facility] V28) 12/12/2024 Assessment & Plan (12/12/2024 10:28 [...] echocardiogram in September 2024 while hospitalized at [facility] which was reviewed. Abdominal pain 12/09/2024 Hypotension 12/09/2024 Atypical chest pain 12/19/2023 Assessment & Plan (01/12/2025 11:16 AM EST): Stress test reassuring without perfusion abnormalities chest discomfort perhaps musculoskeletal also probably was related to Novoa catheter. I reassured her. Assessment & Plan (12/12/2024 10:28 AM EST): See CAD plan. Orders: Nuclear stress test with myocardial perfusion; Future Heart failure ([facility] V24, [facility] V28) 024 Pulmonary edema 12/19/2023 Edema 09/25/2023 Coronary artery disease invo lving [place] coronary artery of [place] heart without angina pectoris 03/26/2023 Overview (09/04/2024): [...] mellitus type 2 wit h neurological manifestations ([facility] V24, [facility] V28) 02/13/2017 DJD (degenerative joint disease), cervical 02/13 DJD (degenerative joint disease), lumbar 017 Fatty liver 02/13/2017 GERD (gastroesophageal reflux disease) 7 Type 2 diabetes mellitus wit h cataract ([facility] V24, [facility] V28) 02/13/2017 Urinary incontinence 02/13/2017 Venous insufficiency [...] D deficiency 02/13/2017 Depression 02/08/2017 Diabetic neuropathy ([facility] V24, [facility] V28) 0 02/08/2017 Diabetic retinopathy ([facility] V24, [facility] V28) 02/08/2017 Hyperlipidemia 02/08/2017 Overview (09/04/2024): Last [...] AM EST Telemedicine [facility] Cardiology [facility] [address] [place] [address] [address] [place] [address] Michael Torrez MD Atypical chest pain (Primary Dx); Coronary artery disease involving [place] coronary artery of [place] heart without angina pectoris 01/06/2025 Telephone [facility] [address] [place] [address] [place] [address] Michael Torrez MD Appointment 12/25/2024 8:00 AM EST Ancillary Procedure [facility] Cardiology [facility] [address] [place] [address] Coronary artery disease involving [place] coronary artery of [place] heart without angina pectoris; Atypical chest pain 12/16/2024 9:00 AM EST Office Visit Internal Medicine - [place] [address] [place] [phone] Dionisio Romano MD Routine medical exam (Primary Dx); 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 V24, CMS/HCC V28); Primary hypertension; Stage 3b chronic kidney disease (CMS/HCC V24, CMS/HCC V28); Coronary artery disease involving [place] coronary artery of [place] heart without angina pectoris 12/12/2024 8:10 AM EST Office Visit [facility] [address] [place] [address] Christiane Sanders, YOLY Coronary artery disease involving [place] coronary artery of [place] heart without angina pectoris (Primary Dx); Atypical chest pain; Chronic heart failure with preserved ejection fraction ([facility] V24, [facility] V28); Hypertension, unspecified type; Hyperlipidemia, unspecified hyperlipidemia [...] PROCEDURE: HISTORICAL ROTATOR CUFF REPAIR APPENDECTOMY PROCEDURE: MD APPENDECTOMY CATARACT EXTRACTION PROCEDURE: HISTORICAL CATARACT REMOVAL OTHER SURGICAL HISTORY PROCEDURE: ---- OTHER ----; COMMENT: venous ligation LAPAROSCOPIC GASTRIC BANDING PROCEDURE: LAP ADJUSTABLE GASTRIC BAND CORONARY ARTERY BYPASS GRAFT Medical History Medical History Date Comments Diabetic neuropathy ([facility] V24, [facility] V28) 02/08/2017 DX:Diabetic neuropathy (HCC) Hyperlipidemia 02/08/2017 DX:Hyperlipidemi a Hypertension 02/08/2017 DX:Hypertension Diabetic retinopathy (CMS/ C V24, [facility] V28) 02/08/2017 DX:Diabetic retinopathy (HCC ) Depression 02/08/2017 DX:Depression History of adjustable gastric banding 02/13/2017 DX:History of adjustable gastric banding Diabetes mellitus type 2 wit h neurological manifestations ([facility]24, [facility] V28) 02/13/2017 DX:Diabetes mellitus type 2 with neurological manifestations (HCC) Type 2 diabetes mellitus wit h eye manifestations ([facility] V24, [facility] V28) 02/13/2017 DX:Type 2 diabetes mellitus with eye manifestations (HCC) Type 2 diabetes mellitus wit h cataract ([facility] V24, [facility] V28) 02/13/2017 DX:Type 2 diabetes mellitus with [...] Insulin dependent type 2 destini betes mellitus ([facility] V24, [facility] V28) DX:Insulin depende nt type 2 diabetes mellitus (HCC) RUQ pain DX:RUQ pain Anemia Diabetes ([facility] V24, [facility] V28) Family History Medical History Relation Name [...] AM EDT Office Visit Internal Medicine - [place] [address] [facility] [address] [place] [address] Dionisio Romano MD [address] [facility] [address] [place] [phone] Health Maintenance Due Date Last Done Comments [...] 10:26 AM EST Coronary artery disease involving [place] coronary artery of [place] heart without angina pectoris Atypical chest pain [...] Routine 06/21/2023 HEPATITIS C SCREENING Routine 02/27/2023 [facility] DEXA AXIAL SKELETON Routine 12/05/2022 5:38 PM EST Encounter for screening for osteoporosis HEMOGLOBIN A1C Routine 06/01/2021 LIPID PANEL Routine 06/01/2021 from Last 3 Months or Most Recently Relevant to Health Maintenance Results * (ABNORMAL) Complete blood count (01/26/2025 12:00 PM EDT) [facility] WBC 6.0 4.8 - 10.8 K/mcL LAB HEMETOLOGY METHOD 01/26/2025 2:29 PM EDT [facility] RBC 3.20(L) 3.80 - 4.80 M/mcL LAB HEMETOLOGY METHOD 01/26/2025 2:29 PM EDT [facility] Hemoglobin 9.0(L) 11.5 - 16.0 g/dL LAB HEMETOLOGY METHOD 01/26/2025 2:29 PM EDT [facility] Hematocrit 28.7(L) 35.0 - 47.0 % LAB HEMETOLOGY METHOD 01/26/2025 2:29 PM EDT [facility] MCV 89.4 79.0 - 98.0 FL LAB HEMETOLOGY METHOD 01/26/2025 2:29 PM EDT [facility] MCH 28.0 27.0 - 32.0 pcg LAB HEMETOLOGY METHOD 01/26/2025 2:29 PM EDT [facility] MCHC 31.4(L) 32.0 - 37.0 g/dL LAB HEMETOLOGY METHOD 01/26/2025 2:29 PM EDT [facility] RDW 17.5(H) 11.0 - 15.0 % LAB HEMETOLOGY METHOD 01/26/2025 2:29 PM EDT [facility] Platelets 245 130 - 400 K/mcL LAB HEMETOLOGY METHOD 01/26/2025 2:29 PM EDT [facility] MPV 11.8(H) 7.0 - 11.0 FL LAB HEMETOLOGY METHOD 01/26/2025 2:29 PM EDT [facility] NRBC 0.0 <1.0 % LAB HEMETOLOGY METHOD 01/26/2025 2:29 PM EDT [facility] NRBC Absolute 0.00 <0.10 K/mcL LAB HEMETOLOGY METHOD 01/26/2025 2:29 PM EDT [facility] Blood Venous blood specimen / Unknown Venipuncture / Unknown 01/26/2025 12:00 PM EDT 01/26/2025 12:00 PM EDT us Martín De Luna MD LAB BLOOD ORDERABL ES Final Result [facility] [address] [place] [address], * NM LEXISCAN STRESS TEST W/ MYOCARDIAL [...] mmol/L LAB CHEMISTRY METHOD 12/16/2024 2:56 PM [facility] Potassium 4.1 3.5 - 5.5 mmol/L LAB CHEMISTRY METHOD 12/16/2024 2:56 PM [facility] Chloride 104 96 - 110 mmol/L LAB CHEMISTRY METHOD 12/16/2024 2:56 PM [facility] CO2 29 21 - 32 mmol/L LAB CHEMISTRY METHOD 12/16/2024 2:56 PM [facility] Anion Gap 4 3 - 11 LAB CHEMISTRY METHOD 12/16/2024 2:56 PM [facility] Glucose 223(H) 70 - 100 mg/dL LAB CHEMISTRY METHOD 12/16/2024 2:56 PM [facility] BUN 36(H) 5 - 25 mg/dL LAB CHEMISTRY METHOD 12/16/2024 2:56 PM EST [facility] Creatinine 2.33(H) 0.50 - 1.10 mg/dL LAB CHEMISTRY METHOD 12/16/2024 2:56 PM EST [facility] eGFR 22(L) >=60 mL/min/1. 73m2 LAB CHEMISTRY METHOD 12/16/2024 2:56 PM EST [facility] Comment:Calculation based on the??Chronic Kidney Disease Epidemiology Collaboration (CKD-EPI) equation refit??without adjustment for race. BUN/Creatinine Ratio 15.5 LAB CHEMISTRY METHOD 12/16/2024 2:56 PM EST [facility] Calcium 9.2 8.5 - 10.5 mg/dL LAB CHEMISTRY METHOD 12/16/2024 2:56 PM [facility] Blood Venous blood specimen / Unknown Venipuncture / Unknown 12/16/2024 9:48 AM EST 12/16/2024 9:48 AM EST us Dionisio Romano MD LAB BLOOD ORDERABLES Final Res ult [facility] [address] [place] [address], * MG Mammo Digital Diagnostic w Isaac bilat (11/13/2024 8:23 AM EST) Anatomical Region Laterality Modality Breast Bilateral Mammography 11/13/2024 8:11 AM EST Impressions 11/13/2024 8:21 AM EST Benign. BI-RADS CATEGORY: 2 - BENIGN RECOMMENDATION: Screening bilateral mammogram is recommended in 1 year. Mammo Location: [facility], [address] [place] [id number] -------- FINAL REPORT -------- Dictated By: Daniel Gregory Dictated Date: 11/13/2024 08:11 ET Assigned Physician: Daniel Gregory Reviewed and Electronically Signed By: Daniel Gregory Signed Date: 11/13/2024 08:21 ET Workstation ID: [id number] Transcribed By: Self Edit Transcribed Date: 11/13/2024 [...] and CC projection is performed in the [employer] 2000-D unit. ??Computer aided detection utilizing the [...] MLO and CC projection is performed in the[employer] 2000-D unit. Computer aided detection utilizing the [...] is recommended in 1 year. Mammo Location: [facility], [address] [place] [id number] -------- FINAL REPORT -------- Dictated By: Daniel Gregory Dictated Date: 11/13/2024 08:11 ET Assigned Physician: Daniel Gregory Reviewed and Electronically Signed By: Daniel Gregory Signed Date: 11/13/2024 08:21 ET Workstation ID: [id number] Transcribed By: Self Edit Transcribed Date: 11/13/2024 08:11 ET Dionisio Romano MD IMG BI PROCEDURES Final Result * Diabetes Eye Exam (05/12/2024) [facility] Diabetes: Annual Retina Eye Exam abstracted Historical Provider HEALTH MAINTENANCE Final Result * Colonoscopy (04/16/2024) [facility] Colonoscopy no interpretation , abstracted Anatomical Region Laterality Modality Other Historical Provider HEALTH MAINTENANCE Final Result * Diabetes Foot Exam (10/09/2023) [facility] Diabetes: Annual Foot Exam abstracted Historical Provider HEALTH MAINTENANCE Final Result * Urine Albumin Creatinine Ratio (06/21/2023) [facility] Urine Albumin Creatinine Ratio abstracted Historical Provider HEALTH MAINTENANCE Final Result * Hepatitis C Screening (02/27/2023) [facility] Hepatitis C Screening abstracted Historical Provider HEALTH MAINTENANCE Final Result * [facility] DEXA AXIAL SKELETON (12/05/2022 5:38 PM EST) Anatomical Region Laterality Modality Mammography 12/05/2022 11:1 5 AM EST Narrative 12/05/2022 5:38 PM EST [facility] Diagnostic Imaging Department [address] [place] [address] Patient: ??TALIA WATTS ?/Age/Sex: 1950 - 71 - F Unit#: ??[id number] ? Location/Status: ??SPDIMAM/REG CLI ? Mnemonic/Ordering Site: ??MAMDEXAAX/SPMAM Ordering Physician: ??DIONISIO ROMANO MD [facility] Dexa Axial Skeleton - 12/05/22 - History: Low estrogen state due to menopause. On omeprazole. Comparison: 08/10/14 Findings: Bone densitometry is performed utilizing dual energy x-ray absorptiometry (DXA) in the [employer] unit. The lumbar spine and proximal femora [...] 0.1 percent. IMPRESSION: Normal bone mineral density. [id number] Dictating Physician: ??LATRICE SIMS MD Electronically Signed by: ??LATRICE SIMS MD Dic Date/Time: ??12/05/221736 Sign date/Time: ??12/05/221737 Procedure Note Latrice Sims MD - 12/21/2023 [facility] Diagnostic Imaging Department [address] [place] [address] Patient: TALIA WATTS /Age/Sex: 1950 - 71 - F Unit#: [id number] Location/Status: SPDIMAM/REG CLI Mnemonic/Ordering Site: MAMDEXAAX/SPMAM Ordering Physician: DIONISIO ROMANO MD [facility] Dexa Axial Skeleton - 12/05/22 - History: Low estrogen state due to menopause. On omeprazole. Comparison: 08/10/14 Findings: Bone densitometry is performed utilizing dual energy x-ray absorptiometry(DXA) in the [employer] unit. The lumbar spine and proximal femora [...] 0.1 percent. IMPRESSION: Normal bone mineral density. [id number] Dictating Physician: LATRICE SIMS MD Electronically Signed by: LATRICE SIMS MD Dic Date/Time: 12/05/221736 Sign date/Time: 12/05/221737 Dioniiso Romano MD IMG BI PROCEDURES Final Result [...] Most Recently Relevant to Health Maintenance Insurance [facility] MEDICARE Member Subscriber Plan / Payer (Ef fective 2023-Present) Name:Talia Watts Relation to Subscriber:Self Name:Talia Watts Payer ID:[id number] Group ID:[id number] Type:Not on file Address: [place] [address] [place] [address] Care Teams Desktop Operator Relationship Specialty Start Date End Date Dionisio Romano MD [address] [place] [phone] PCP - General Internal Medicine 02/25/13
--- OUTSIDE RECORDS SUMMARY | 2025-03-03 14:03 | XMS_ITS | Continuity of Care Document ---
Author Organization Formerly [facility]. If a dditional information is needed, contact Health Information Management at [phone] Address [address] [place] [address] Phone Care Team Providers Care Bundler Name Role Phone Unavailable Unavailable Unavailable Unavailable Unavailable Unavailable Unavailable Unavailable Unavailable Unavailable Unavailable Unavailable Unavailable Unavailable Unavailable Unavailable Unavailable Unavailable Problems Disorder of toe Onset:16-Mar-2024 Talha Ackerman APRN Chest pain Onset:11-Jan-2015 Allergies and Adverse Reactions No Known Drug Intolerances(A llergy) Onset: 11-Jan-2015 Reaction:UNKNOWN Social History Smoking Status Never smoked tobacco Recorded: 16-Mar-2024 Vital Signs 16-Mar-2024 13:32 [id number] Comments:97.7 Pulse70 Comments:70 Respiratory Rate16 Comments:16 O2 SAT99% Comments:99 BP [id number][Hg] Comments:16 4 BP [id number][Hg] Comments:74 Height5.5[ft_us] Comments:5 Cmxkct22.455kg Comments:95.455 16-Mar-2024 13:32 FZU86xf/m2 Comments:34.0 Encounters Emergency Encounter Reason:RIGHT FOOT TOE PAIN Encounter Diagnosis:Exposure to other specified factors, initial encounter,Blister (nonthermal), right great toe, initial encounter 16-Mar-2024 13:[id number] 13:50 Deepika Feng MD (Attending) [facility] Discharge Disposition:Discharged to home or self care (routine discharge) ? ? ? Talha Ackerman APRN-16-Mar-2024 [facility] ([facility])EMERGENCY PROVIDER REPORTREPORT#:[id number] REPORT STATUS: SignedDATE:03/16/24 TIME: 1333PATIENT: TALIA WATTS UNIT #: [id number]#: [id number] ROOM/BED:AGE: 73 SEX: F PCP PHYS: Undefined ProviderSERVICE AUTHOR: TINO HIGHTOWER* ALL edits or amendments must be made on the electronic/computer document *TINO HIGHTOWER 03/16/24 1333:HPI-General IllnessGeneralInitial Greet Date/Time 03/16/24 1310PresentationChief Complaint __ (Right great toe blister)Free Text HPI NotesFree Text HPI [id number] female presents emergency department today for reports of a blisterunderneath her right great toe. Patient reports she has diabetes has been usingmedihoney reports she is from [place] it has not seen her primary care [...] MidLv Saw Pt AloneI have reviewed the PA/PRESS TENDER STAR SIGNAL's note and plan of care. I was [...] patient's visit. at 1401 at 0957RPT #: [id number] OF REPORT Plan of Treatment Based on [...]
[2025-03-03 18:42] LABS: Anion Gap 14 (12-20); Blood Urea Nitrogen 61 mg/dL (9-16); Carbon Dioxide 21 mmol/L (22-29); Chloride 106 mmol/L (96-108); Estimated Glomerular Filt Rate 14; Potassium 4.1 mmol/L (3.3-5.1); Sodium 137 mmol/L (135-145)
== END 2025-03-03 11:23 | disposition home or self-care (01) ==
LOC: HO.HKASLDS 11:22
PROVIDERS: Visit Provider Internal Medicine Nephrology
DX: E11.22 Type 2 diabetes mellitus with diabetic chronic kidney disease (principal); N18.4 Chronic kidney disease, stage 4 (severe); Z79.4 Long term (current) use of insulin
CPT/HCPCS: 36415; 80051; 82565; 84520

== ENCOUNTER 2025-03-04 09:58 | Outpatient (AMB) | payer OTHER, SELFPAY ==
[2025-03-04 10:06] VITALS: BP 130/78; PULSE 65; O2SAT 100; BMI 32.9
--- NOTE | 2025-03-04 10:06 | HO.NEPHOV_ITS ---
Vital Signs 03/04/25 10:06 Height 5 ft 6 in Weight 204 lb BMI 32.9 BP 130/78 Blood Pressure Location Lt brachial Position Sitting Pulse 65 Pulse Source Pulse Oximeter Pulse Oximetry (%) 100 Oxygen Delivery Method Room Air Intake Visit Reasons: 4wk Procrit follow-up/ LVM Allergies No Known Allergies Allergy (Verified 03/04/25 10:07) Medication List - Last Reconciled 03/04/25 by Martín De Luna MD albuterol sulfate 90 mcg/actuation (ProAir HFA) 2 puffs inhalation Q6H PRN albuterol sulfate 90 mcg/actuation (ProAir RespiClick) 1 inh inhalation Q4-6H PRN aspirin 81 mg PO DAILY atorvastatin 80 mg PO DAILY carvedilol 12.5 mg PO BID cholecalciferol (vitamin D3) 50 mcg PO DAILY ferrous sulfate (FeroSul) 325 mg PO DAILY furosemide 80 mg PO DAILY hydralazine 75 mg (1.5 x 50 mg) PO TID insulin glargine (Lantus Solostar U-100 Insulin) 62 units subcut DAILY insulin lispro (Humalog KwikPen (U-100) Insulin) subcut metolazone 2.5 mg PO DAILY PRN nifedipine ER mg PO DAILY pantoprazole 40 mg PO DAILY potassium chloride ER 10 mEq PO DAILY HPI Comments Details: 73-year-old pleasant woman with a history of diabetes mellitus for more than 35 years who was at chronic kidney disease. She is history of congestive heart failure and was on Entresto Lasix and furosemide. Back in November of 2023 creatinine was 2.6 with EGFR of 19 mL/minute. She is currently in nifedipine 60mg daily, hydralazine 75mg TID, carvedilol 12.5mg BID and furosemide 40mg PO BID She continues to have back pain. She has chronic shortness of breath (reports since prior to heart surgery last year which she states did not really help her breathing much. States at rest is ok, with exertion continues to have some dyspnea chronically). No nausea, vomiting. She has leg edema. Wears compression stockings. No weight loss. All other systems were reviewed History of congestive heart failure with preserved ejection fraction. 09/10/24 reports shortness of breath for a while now reports a year ago had open heart surgery, reports before then had it but surgery didn't make it better and has continued blood pressure medications- reports has not taken yet this a.m. Reports SBP at home is usually in 130s. 10/15/2024. Milla was hospitalized about a week ago. She had acute kidney injury superimposed on CKD with fungemia. Serum creatinine peaked more than 4. Diuretics were held. Renal function gradually improved. She is currently not on diuretics creatinine is around 3. She has significant edema. No shortness of breath at present. Accompanied by her family member. She had recently undergone laparoscopic cholecystectomy for symptomatic cholelithiasis. During this hospitalization faustina was negative. He has been catheter was inserted 1121. She is currently on Micafungin and Zosyn 12/03/24; BP was low ; She was hospitalized @ [facility] [place]; Nov 2023 : Cr 2.2 ;Nov 2024 Cr 2.2 with eGFR of 22 ml/mt 01/14/25: Recently in ER for a viral infection; Resolved 02/04/25 Leg edema increased Received IV Lasix 03/04/25 HEre for follow up Seen last week by for worsening renal function Diuretics were decreased She feels better Edema has improved Cr is still up [facility] Medical History Chronic kidney disease Degenerative joint disease (DJD) of hip Cataract Bunion Fatty liver DJD (degenerative joint disease), lumbar DJD (degenerative joint disease), cervical Diabetes mellitus type 2 with neurological manifestations Vitamin D deficiency Urinary incontinence Allergic rhinitis GERD (gastroesophageal reflux disease) Depression Diabetic retinopathy Hypertension Hyperlipidemia Diabetic nephropathy Surgical History History of cholecystectomy (~09/2024) History of open heart surgery (~02/2023) History of adjustable gastric banding Social History Patient Tobacco Use Status: Never used Tobacco Physical Exam Vital Signs: Last Vital Signs Pulse 65 03/04/25 10:06 BP 130/78 03/04/25 10:06 Pulse Ox 100 03/04/25 10:06 Oxygen Delivery Method Room Air 03/04/25 10:06 BMI result Body Mass Index 32.9 Results Reviewed Nephrology Results: Hgb 10.2 g/dl (12.0-16.0) L 02/24/25 WBC 6.4 X10*3/uL (4.8-10.8) 02/24/25 Plt Count 247 X10*3/uL (160-400) 02/24/25 Sodium 137 mmol/L (135-145) 03/03/25 Potassium 4.1 mmol/L (3.3-5.1) 03/03/25 Chloride 106 mmol/L (96-108) 03/03/25 Carbon Dioxide 21 mmol/L (22-29) L 03/03/25 BUN 61 mg/dL (9-16) H 03/03/25 Creatinine 3.18 mg/dL (0.5-1.4) H 03/03/25 Calcium 9.1 mg/dL (8.4-10.2) 02/24/25 Phosphorus 4.6 mg/dL (2.7-4.5) H 02/24/25 PTH Intact 297.3 pg/mL (8.7-77.1) H 02/24/25 Assessment & Plan Assessment & Plan (1) Diabetes mellitus with chronic kidney disease: Code(s): E11.22 - Type 2 diabetes mellitus with diabetic chronic kidney disease Category: Medical Qualifiers: Chronic kidney disease stage: stage 4 (severe) Diabetes mellitus fci insulin use: with roller inspector use Diabetes mellitus type: type 2 Qualified Code(s): E11.22 - Type 2 diabetes mellitus with diabetic chronic kidney disease; N18.4 - Chronic kidney disease, stage 4 (severe); Z79.4 - jail (current) use of insulin (2) JERZY (acute kidney injury): Code(s): N17.9 - Acute kidney failure, unspecified Category: Medical (3) Hypertension: Code(s): I10 - Essential (primary) hypertension Category: Medical Qualifiers: Hypertension type: primary hypertension Qualified Code(s): I10 - Essential (primary) hypertension (4) Anemia in chronic kidney disease: Code(s): N18.9 - Chronic kidney disease, unspecified; D63.1 - Anemia in chronic kidney disease Category: Medical Qualifiers: Chronic kidney disease stage: stage 4 (GFR 15-29) Qualified Code(s): N18.4 - Chronic kidney disease, stage 4 (severe); D63.1 - Anemia in chronic kidney disease (5) Chronic kidney disease: Code(s): N18.9 - Chronic kidney disease, unspecified Category: Medical Qualifiers: Chronic kidney disease stage: stage 4 (severe) Qualified Code(s): N18.4 - Chronic kidney disease, stage 4 (severe) Plan 74-year-old woman with a history of longstanding diabetes mellitus and coronary disease with stage IV CKD. CKD is most likely due to underlying diabetic kidney disease. Nondiabetic causes seem unlikely based on the clinical picture. Cr is worse From hypoperfusion vs natural progression. Keep on lower dose of diuretics for now and reassess Maintain A1c less than 7%. She is on adequate dose of diuretics at this time. She should stay on low-sodium diet which she is working on. She will benefit from SGLT2 inhibitors. Hypertension. 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 Iron stores are adequate. Administered Retacrit 51929 U administered subcutaneously today into right arm Lot [id number] [facility] 3710-1309-10 secondary hyperparathyroidism Mild elevation PTH. She will follow this and start her on vitamin D3 analog as needed. Discussed Dialysis options Referred for home dialysis evaluation Orders: Orders AMB Epoetin Injection Practice Supplied Today N40.1 - Benign prostatic hyperplasia with lower urinary tract symptoms Complete Blood Count no Diff 3 Weeks D63.1 - Anemia in chronic kidney disease, E11.22 - Type 2 diabetes mellitus with diabetic chronic kidney disease, N18.4 - Chronic kidney disease, stage 4 (severe) Basic Metabolic Panel 3 Weeks D63.1 - Anemia in chronic kidney disease, E11.22 - Type 2 diabetes mellitus with diabetic chronic kidney disease, N18.4 - Chronic kidney disease, stage 4 (severe) Medications: New epoetin disha-epbx 20,000 units subcut ONCE 1 mL 0RF anemia N40.1 - Benign prostatic hyperplasia with lower urinary tract symptoms Coding Level of Care Code Est Pt Level 4 (18424) Diagnoses Type 2 diabetes mellitus with stage 4 chronic kidney disease, with long-term current use of insulin E11.22; N18.4; Z79.4 Chronic kidney disease stage: stage 4 (severe) Diabetes mellitus roller inspector insulin use: with fci use Diabetes mellitus type: type 2 JERZY (acute kidney injury) N17.9 Primary hypertension I10 Hypertension type: primary hypertension Anemia in stage 4 chronic kidney disease N18.4; D63.1 Chronic kidney disease stage: stage 4 (GFR 15-29) Stage 4 chronic kidney disease N18.4 Chronic kidney disease stage: stage 4 (severe)
--- OUTSIDE RECORDS SUMMARY | 2025-03-04 11:24 | XMS_ITS | Continuity of Care Document ---
Author Organization [facility] Address [address] [place] [address] [address] [place] [address] Phone Care Team Providers Care Precision Aircraft Structure Assembler Name Role Phone Elbert AVILES, JAMEEL, MIRZA, González Unavailable U navailable Procedures Procedure Date Office/Oupt E&M New Pt 45 Mins- CT & [place] Duplex Scan-extrem Veins; Comp- CT & [place] Advance Directives Directive Yes / No Effective Date File Name No Information Encounters Encounter Description Practice Location Reason(s) For Visit Diagnoses Date Provider Providers Copied on Encounter [facility], [address] [place] [address] Dr [address], [id number], [place] tel:[phone] [facility] No Information 4 Elbert AVILES, JAMEEL, MIRZA Claudio. [address] [address], [place], [place], [id number] , [place]. tel:[phone] Office/Oupt E&M New Pt 45 Mins- CT & [place] [facility], [address] [place] [address] Dr [address], [id number], [place] tel:[phone] [facility] Chronic venous hypertension (idiopathic) with other complications of bilateral lower extremityLymphe brenda, not elsewhere classifiedType 2 diabetes mellitus without complicationsRe stless legs syndromeEssenti al (primary) hypertensionCra mp and spasmLocalized edema 4 Elbert AVILES RVT, MIRZA Claudio. [address] [facility], [address], [place], [id number] , [place]. tel:[phone] Referring Provider: Diana Hamm, [address] [place] [address] [facility], [facility] [address], [place], [address]. tel:[phone] [facility], [address] [facility] [address], [place], [id number], tel:[phone] [facility] [place] [facility] [place] Chronic venous hypertension (idiopathic) with other complications of bilateral lower extremity 4 Elbert AVILES RVT, MIRZA Claudio. [address] [facility], [address], [place], [id number] , [place]. tel:[phone] Referring Provider: Diana Hamm, [address] [place] [address] [facility], [facility] [address], [place], [address]. tel:[phone] Family History Family Member Type Diagnosis Age At Onset No Information Payers Payer name Insurance type Covered libertarian ID Krista fregoso(s) [facility] CI [id number] Social History Type Description Quantity Date Captured [...]
--- OUTSIDE RECORDS SUMMARY | 2025-03-04 11:24 | XMS_ITS ---
Author Name Sera Houser NP Address [address] [place] [address] Phone [phone] [facility] Care Team Providers Care Lens Inserter Name Role Phone Sera Houser Unavailable [phone] [facility] Unavailable Unavailable Unavailable [phone] Unavailable Unavailable Unavailable Unavailable Unavailable [phone] Unavailable Unavailable [phone] Unavailable Unavailable [phone] Unavailable Unavailable [phone] Unavailable Unavailable [phone] Unavailable Unavailable [phone] Unavailable Unavailable [phone] Unavailable Unavailable [phone] Unavailable Unavailable [phone] [employer] Unavailable [phone] medline Unavailable [phone] [place], Diana Unavailable [phone] CHELSIE MEYER Unavailable [phone] Reason for Referral Not Available Allergies, adverse [...] No Data Available B-D PEN NDL SHRT [id number](03/19 6) SHAW USE DIRECTED TO ADMINISTER INSULIN [...] Service Diagnosis/Co mplaint Medication List Documented (1159F) [facility] [place] Medication List Documented (1159F) [facility] [place] Medication List Documented (1159F) [facility] [place] Medication List Documented (1159F) [facility] [place] Medication List Documented (1159F) [facility] [place] Medication List Documented (1159F) [facility] [place] Medication List Documented (1159F) [facility] [place] Medication List Documented (1159F) [facility] [place]2022 Type 2 diabetes mellitus wit h diabetic chronic kidney diseaseChronic kidney disease, stage 3 unspecifiedChronic obstructive pulmonary disease, unspecifiedHyp hrt & chr kdny dis w hrt fail and stg 1-4/unsp chr kdnyHeart failure, unspecifiedHyperlipidemia, unspecifiedMajor depressive disorder, single episode, unspecifiedUnspecified osteoarthritis, unspecified site No Data Available [facility] [place] 09[place]2022 Unspecified osteoarthritis, unspecified siteOther chronic painHeart failure, unspecifiedChronic obstructive pulmonary disease, unspecified No Data Available [facility] [place] 10/18/2022 Unspecified osteoarthritis, unspecified siteOther chronic pain No Data Available [facility] [place] 01/02/2023 Cholecystitis, unspecified No Data Available [facility] [place] 01/02/2023 Vital Signs Date of Collection Vitals 2022-09-11 07:40:43 Height - 165.1 cmWei ght - 109.32 kgBody Mass Index (BMI) - 40.1 kg/m2BP Diastolic - 84.0 mm[Hg]BP Systolic - 170.0 mm[Hg]Heart Rate - 88.0 /min Social History Social History Social History Observation Description Effec tive Time Current Smoking Status Never smoker 2025-02-17 7 Sex Female History of Procedures Procedures [...] (do not use for phone, instead use [id number]) 01101 2022-09-11 No Data Available No Data Availa ble No Data Available [id number] 2022-09-22 No Data Available No Data Available No Data Available [id number] 2022-10-18 No Data Available No Data Available No Data Available [id number] 2023-01-02 No Data Available No Data Available [...] E ducation to avoid future hospitalization: Call [facility] if symptoms of illness develop. Cholecystitis [K81.9] [...] Cholecystitis [K81.9 ]> Pt will f/u with [facility] to schedule OP f/u for discussion of [...] hospital course: 12/20/22- 12/22/22Pt was seen at [facility] for chest and abdominal pain. She [...] BY MOUTH ONCE QHSB-D PEN NDL SHRT [id number](04/03) SHAW sig: USE DIRECTED TO ADMINISTER INSULIN [...]
--- OUTSIDE RECORDS SUMMARY | 2025-03-04 11:25 | XMS_ITS | Clinical Summary ---
Author Organization 175 [facility] Address [address] [place] [address] Phone Care Team Providers Care Director Software Development Name Role Phone Dionisio Romano MD Primary Care Provider [phone] Allergies No known active allergies Medications docusate [...] 24 hr tabletIndicati ons:Coronary artery disease involving tetlin coronary artery of tetlin heart without angina pectoris Take 1 tablet [...] DAILY 60 tablet 1 02/27/20 25 Active NIFEdipine CC (ADALAT CC) 60 mg 24 hr tablet TAKE 1 TABLET BY MOUTH DAILY 90 tablet 1 03/04/20 25 Active methenamine hippurate (HIPREX) 1 gram tablet Take 1 tablet (1 g total) by mouth 2 (two) times a day. 08/25/20 24 025 Discontinued Active Problems Problem Noted Date Diagnosed Date (HFpEF) heart failure with p reserved ejection fraction (CMS/[facility] V24, CMS/[facility] V28) 12/12/2024 Assessment & Plan [...] echocardiogram in September 2024 while hospitalized at [facility] which was reviewed. Abdominal pain 12/09/2024 Hypotension 12/09/2024 Atypical chest pain 12/19/2023 Assessment & Plan (01/12/2025 11:16 AM EST): Stress test reassuring without perfusion abnormalities chest discomfort perhaps musculoskeletal also probably was related to Novoa catheter. I reassured her. Assessment & Plan (12/12/2024 10:28 AM EST): See CAD plan. Orders: Nuclear stress test with myocardial perfusion; Future Heart failure ([facility] V24, CMS/[facility] V28) 024 Pulmonary edema 12/19/2023 Edema 09/25/2023 Coronary artery disease invo lving tetlin coronary artery of tetlin heart without angina pectoris 03/26/2023 Overview (09/04/2024): [...] mellitus type 2 wit h neurological manifestations ([facility] V24, [facility] V28) 02/13/2017 DJD (degenerative joint disease), cervical 02/13 DJD (degenerative joint disease), lumbar 017 Fatty liver 02/13/2017 GERD (gastroesophageal reflux disease) 7 Type 2 diabetes mellitus wit h cataract ([facility] V24, [facility] V28) 02/13/2017 Urinary incontinence 02/13/2017 Venous insufficiency [...] D deficiency 02/13/2017 Depression 02/08/2017 Diabetic neuropathy ([facility] V24, [facility] V28) 0 02/08/2017 Diabetic retinopathy ([facility] V24, [facility] V28) 02/08/2017 Hyperlipidemia 02/08/2017 Overview (09/04/2024): Last [...] Team Description 01/08/2025 10:30 AM EST Telemedicine [address] [place] [address] Michael Torrez MD Atypical chest pain (Primary Dx); Coronary artery disease involving tetlin coronary artery of tetlin heart without angina pectoris 01/06/[address] [place] [address] Michael Torrez MD Appointment 12/25/2024 8:00 AM EST Ancillary Procedure [facility] [address] [place] [address] Coronary artery disease involving tetlin coronary artery of tetlin heart without angina pectoris; Atypical chest pain 12/16/2024 9:00 AM EST Office Visit Internal Medicine - [place] [address] [place] [phone] Dionisio Romano MD Routine medical exam (Primary Dx); 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 V24, CMS/HCC V28); Primary hypertension; Stage 3b chronic kidney disease (CMS/HCC V24, CMS/HCC V28); Coronary artery disease involving tetlin coronary artery of tetlin heart without angina pectoris 12/12/2024 8:10 AM EST Office Visit [facility] [address] [place] [address] Christiane Sanders NP Coronary artery disease involving tetlin coronary artery of tetlin heart without angina pectoris (Primary Dx); Atypical chest pain; Chronic heart failure with preserved ejection fraction (CMS/HCC V24, [facility] V28); Hypertension, unspecified type; Hyperlipidemia, [...] PROCEDURE: HISTORICAL ROTATOR CUFF REPAIR APPENDECTOMY PROCEDURE: [place] APPENDECTOMY CATARACT EXTRACTION PROCEDURE: HISTORICAL CATARACT REMOVAL OTHER SURGICAL HISTORY PROCEDURE: ---- OTHER ----; COMMENT: venous ligation LAPAROSCOPIC GASTRIC BANDING PROCEDURE: LAP ADJUSTABLE GASTRIC BAND CORONARY ARTERY BYPASS GRAFT Medical History Medical History Date Comments Diabetic neuropathy (CMS/HCC V24, CMS/[facility] V28) 02/08/2017 DX:Diabetic neuropathy (HCC) Hyperlipidemia 02/08/2017 DX:Hyperlipidemi a Hypertension 02/08/2017 DX:Hypertension Diabetic retinopathy (CMS/ C V24, CMS/[facility] V28) 02/08/2017 DX:Diabetic retinopathy (HCC ) Depression 02/08/2017 DX:Depression History of adjustable gastric banding 02/13/2017 DX:History of adjustable gastric banding Diabetes mellitus type 2 wit h neurological manifestations ([facility] V24, [facility] V28) 02/13/2017 DX:Diabetes mellitus type 2 with neurological manifestations (HCC) Type 2 diabetes mellitus wit h eye manifestations ([facility] V24, [facility] V28) 02/13/2017 DX:Type 2 diabetes mellitus with eye manifestations (HCC) Type 2 diabetes mellitus wit h cataract ([facility] V24, [facility] V28) 02/13/2017 DX:Type 2 diabetes mellitus with cataract ([facility]) Allergic rhinitis 02/13/2017 DX:Allergic rh initis GERD [...] Insulin dependent type 2 destini betes mellitus ([facility] V24, [facility] V28) DX:Insulin depende nt type 2 diabetes mellitus (HCC) RUQ pain DX:RUQ pain Anemia Diabetes ([facility] V24, [facility] V28) Family History Medical History Relation Name [...] AM EDT Office Visit Internal Medicine - [place] [address] [place] [phone] Dionisio Romano MD [address] [place] [phone] Health Maintenance Due Date Last Done Comments [...] EDT Chronic kidney disease, stage IV (severe) ([facility] V24, [facility] V28) NM LEXISCAN STRESS TEST W/ MYOCARDIAL PERFUSION Routine 12/25/2024 10:26 AM EST Coronary artery disease involving tetlin coronary artery of tetlin heart without angina pectoris Atypical chest pain BASIC METABOLIC PANEL Routine 12/16/2024 9:48 AM EST Diabetes mellitus type 2 with neurological manifestations ([facility]/HCC V24, [facility] V28) Primary hypertension MG MAMMO DIGITAL DIAGNOSTIC W ISAAC BILAT Routine 11/13/2024 8:23 AM EST Category 3 mammography result with short follow-up interval suggested for probably benign finding DIABETES EYE EXAM Routine 05/12/2024 COLONOSCOPY Routine 04/16/2024 DIABETES FOOT EXAM Routine 10/09/2023 URINE ALBUMIN CREATININE RATIO Routine 06/21/2023 HEPATITIS C SCREENING Routine 02/27/2023 [facility] DEXA AXIAL SKELETON Routine 12/05/2022 5:38 PM EST Encounter for screening for osteoporosis HEMOGLOBIN A1C Routine 06/01/2021 LIPID PANEL Routine 06/01/2021 from Last 3 Months or Most Recently Relevant to Health Maintenance Results * (ABNORMAL) Complete blood count (01/26/2025 12:00 PM EDT) WBC 6.0 4.8 - 10.8 K/mcL LAB HEMETOLOGY METHOD 01/26/2025 2:29 PM EDT [facility] RBC 3.20(L) 3.80 - 4.80 M/mcL LAB HEMETOLOGY METHOD 01/26/2025 2:29 PM EDT [facility] Hemoglobin 9.0(L) 11.5 - 16.0 g/dL LAB HEMETOLOGY METHOD 01/26/2025 2:29 PM EDT [facility] Hematocrit 28.7(L) 35.0 - 47.0 % LAB [facility] MCV 89.4 79.0 - 98.0 FL LAB HEMETOLOGY METHOD 01/26/2025 2:29 PM EDT [facility] MCH 28.0 27.0 - 32.0 pcg LAB HEMETOLOGY METHOD [facility] MCHC 31.4(L) 32.0 - 37.0 g/dL LAB HEMETOLOGY METHOD 01/26/2025 2:29 PM [facility] RDW 17.5(H) 11.0 - 15.0 % LAB HEMETOLOGY METHOD 01/26/2025 2:29 PM EDT [facility] Platelets 245 130 - 400 K/mcL LAB HEMETOLOGY METHOD 01/26/2025 2:29 PM EDT [facility] MPV 11.8(H) 7.0 - 11.0 FL LAB HEMETOLOGY METHOD 01/26/2025 2:29 PM [facility] NRBC 0.0 <1.0 % LAB HEMETOLOGY METHOD 01/26/2025 2:29 PM EDT [facility] NRBC Absolute 0.00 <0.10 K/mcL LAB HEMETOLOGY METHOD 01/26/2025 2:29 PM [facility] Blood Venous blood specimen / Unknown Venipuncture / Unknown 01/26/2025 12:00 PM EDT 01/26/2025 12:00 PM EDT Martín De Luna MD LAB BLOOD ORDERABL ES Final Result [facility] [address] [place] [address], * NM LEXISCAN STRESS TEST W/ MYOCARDIAL [...] 12/16/2024 2:[address] [facility] BUN 36(H) 5 - 25 mg/dL LAB CHEMISTRY METHOD 12/16/2024 2:56 PM EST [facility] Creatinine 2.33(H) 0.50 - 1.10 mg/dL LAB CHEMISTRY METHOD 12/16/2024 2:56 PM EST [facility] eGFR 22(L) >=60 mL/min/1. 73m2 LAB CHEMISTRY METHOD 12/16/2024 2:56 PM EST [facility] Comment:Calculation based on the??Chronic Kidney Disease Epidemiology Collaboration (CKD-EPI) equation refit??without adjustment for race. BUN/Creatinine Ratio 15.5 LAB CHEMISTRY METHOD 12/16/2024 2:56 PM EST [facility] Calcium 9.2 8.5 - 10.5 mg/dL LAB CHEMISTRY METHOD 12/16/2024 2:56 PM EST [facility] Blood Venous blood specimen / Unknown Venipuncture / Unknown 12/16/2024 9:48 AM EST 12/16/2024 9:48 AM EST us Dionisio Romano MD LAB BLOOD ORDERABLES Final Res ult [facility] [address] [place] [address], * MG Mammo Digital Diagnostic w Isaac bilat (11/13/2024 8:23 AM EST) Anatomical Region Laterality Modality Breast Bilateral Mammography 11/13/2024 8:11 AM EST Impressions 11/13/2024 8:21 AM EST Benign. BI-RADS CATEGORY: 2 - BENIGN RECOMMENDATION: Screening bilateral mammogram is recommended in 1 year. Mammo Location: [facility], [address] [place] [address] -------- FINAL REPORT -------- Dictated By: Daniel Gregory Dictated Date: 11/13/2024 08:11 ET Assigned Physician: Daniel Gregory Reviewed and Electronically Signed By: Daniel Gregory Signed Date: 11/13/2024 08:21 ET Workstation ID: [id number] Transcribed By: Self Edit Transcribed Date: 11/13/2024 [...] and CC projection is performed in the [employer] 2000-D unit. ??Computer aided detection utilizing the [...] MLO and CC projection is performed in theSphere Fluidicsographe 2000-D unit. Computer aided detection utilizing the [...] recommended in 1 year. Mammo Location: [facility], [address] [place] [address] -------- FINAL REPORT -------- Dictated By: Daniel Gregory Dictated Date: 11/13/2024 08:11 ET Assigned Physician: Daniel Gregory Reviewed and Electronically Signed By: Daniel Gregory Signed Date: 11/13/2024 08:21 ET Workstation ID: [id number] Transcribed By: Self Edit Transcribed Date: 11/13/2024 08:11 ET Dionisio Romano MD IMG BI PROCEDURES Final Result * Diabetes Eye Exam (05/12/2024) [facility] Diabetes: Annual Retina Eye Exam abstracted Historical Provider HEALTH MAINTENANCE Final Result * Colonoscopy (04/16/2024) [facility] Colonoscopy no interpretation , abstracted Anatomical Region Laterality Modality Other Result [facility] Historical Provider HEALTH MAINTENANCE Final Result * Diabetes Foot Exam (10/09/2023) [facility] Diabetes: Annual Foot Exam abstracted Result [facility] Historical Provider HEALTH MAINTENANCE Final Result * Urine Albumin Creatinine Ratio (06/21/2023) [facility] Urine Albumin Creatinine Ratio abstracted Historical Provider HEALTH MAINTENANCE Final Result * Hepatitis C Screening (02/27/2023) [facility] Hepatitis C Screening abstracted Historical Provider HEALTH MAINTENANCE Final Result * [facility] DEXA AXIAL SKELETON (12/05/2022 5:38 PM EST) Anatomical Region Laterality Modality Mammography 12/05/2022 11:1 5 AM EST Narrative 12/05/2022 5:38 PM EST [facility] Diagnostic Imaging Department [address] [place] [address] Patient: ??TALIA WATTS ?/Age/Sex: 1950 - 71 - F Unit#: ??[id number] ? Location/Status: ??SPDIMAM/REG CLI ? Mnemonic/Ordering Site: ??MAMDEXAAX/SPMAM Ordering Physician: ??DIONISIO ROMANO MD Lucrecia Dexa Axial Skeleton - 12/05/22 - History: Low estrogen state due to menopause. On omeprazole. Comparison: 08/10/14 Findings: Bone densitometry is performed utilizing dual energy x-ray absorptiometry (DXA) in the [employer] unit. The lumbar spine and proximal femora [...] 0.1 percent. IMPRESSION: Normal bone mineral density. [id number] Dictating Physician: ??LATRICE SIMS MD Electronically Signed by: ??LATRICE SIMS MD Dic Date/Time: ??12/05/221736 Sign date/Time: ??12/05/221737 Procedure Note Latrice Sims MD - 12/21/2023 [facility] Diagnostic Imaging Department [address] [place] [address] Patient: MACTALIA /Age/Sex: 1950 - 71 - F Unit#: [id number] Location/Status: SPDIMAM/REG CLI Mnemonic/Ordering Site: MAMDEXAAX/SPMAM Ordering Physician: DIONISIO ROMANO MD Lucrecia Dexa Axial Skeleton - 12/05/22 - History: Low estrogen state due to menopause. On omeprazole. Comparison: 08/10/14 Findings: Bone densitometry is performed utilizing dual energy x-ray absorptiometry(DXA) in the [employer] unit. The lumbar spine and proximal femora [...] 0.1 percent. IMPRESSION: Normal bone mineral density. [id number] Dictating Physician: LATRICE SIMS MD Electronically Signed by: LATRICE SIMS MD Dic Date/Time: 12/05/221736 Sign date/Time: 12/05/221737 us Dionisio Romano MD IMG BI PROCEDURES Final [...] ID:[id number] Group ID:[id number] Type:Not on file Address: [place] [address] [place] [address] Care Teams Director Software Development Relationship Specialty Start Date End Date Dionisio Romano MD [address] [phone] PCP - General Internal Medicine 02/25/13
== END 2025-03-04 10:35 | disposition home or self-care (01) ==
LOC: HO.HKAS 09:59
PROVIDERS: PCP Internal Medicine; Visit Provider Internal Medicine Hypertension Specialist
DX: E11.22 Type 2 diabetes mellitus with diabetic chronic kidney disease (principal); N18.4 Chronic kidney disease, stage 4 (severe); Z79.4 Long term (current) use of insulin; N17.9 Acute kidney failure, unspecified; I12.9 Hypertensive chronic kidney disease with stage 1 through stage 4 chronic kidney disease, or unspecified chronic kidney disease; D63.1 Anemia in chronic kidney disease
CPT/HCPCS: 99214

== ENCOUNTER → 2025-03-04 09:58 | Outpatient (BNVA) | payer OTHER, SELFPAY | PROVIDERS: PCP Internal Medicine; Visit Provider Internal Medicine Hypertension Specialist | DX: E11.22 Type 2 diabetes mellitus with diabetic chronic kidney disease (principal); I12.9 Hypertensive chronic kidney disease with stage 1 through stage 4 chronic kidney disease, or unspecified chronic kidney disease; N18.4 Chronic kidney disease, stage 4 (severe); N17.9 Acute kidney failure, unspecified; D63.1 Anemia in chronic kidney disease; Z79.4 Long term (current) use of insulin | CPT/HCPCS: 99212 ==

== ENCOUNTER 2025-03-31 13:07 | Outpatient (REF) | payer OTHER, SELFPAY ==
--- OUTSIDE RECORDS SUMMARY | 2025-03-31 14:09 | XMS_ITS | Data Portability ---
Author Organization [facility] Address [address] [place] [address] Care Team Providers Care Family Court Justice Name Role Phone [facility] Primary Care Provider HIM CCA OTHER Assessment Encounter Date Assessment Date Assessment LastModified by Organization Details LastModified Time 10/02/2024 10/02/2024 As noted, we ochoa e called to see this patient regarding concerns of shob and weakness. Evaluation in the field was performed by my fuel system maintenance supervisor colleague, as noted above, I provided real-time [...] BMP, serum or plasma 2024 025 BALJIT [facility], [address] [place] [address], [phone] 21:34:24 Referral None recorded. Procedures None recorded. Surgeries None recorded. Imaging None recorded. Medication Orders furosemide 10 mg/mL injection solution 2024 025 chencho [id number], [address] [facility], [place], [place], [id number], 18:30:31 Patient TargetsNo targets recorded. Patient InstructionsNo [...] % 132 mm[Hg] 60 mm[Hg] Not Available [employer] - production 4 19:18:13 Date Recorded Respiratory rate Heart rate Body height Body weight Body temperature Oxygen saturation Oxygen saturation in Arterial blood by Pulse oximetry Systolic blood pressure Diastolic blood pressure Provider Name and Address Organization Details Last Updated DateTime 5 17 /min 76 /min 167.64 cm 59610.2 4 g 98.3 [degF] 94 % 94 % 160 mm[Hg] 60 mm[Hg] Not Available [employer] - production 5 17:47:35 Social History None recorded. Functional Status None recorded. Mental Status None recorded. Family History Nothing Reported. Medical History No medical history recorded. Gynecological HistoryNo gynecological history recorded. Obstetrics History GPAL:G 0 P 0 0 0 0 Past Encounters Encounter ID Performer Location Encounter Start Date Encounter Closed Date Diagnosis/Indication Diagnosis SNOMED-CT Code Diagnosis ICD10 Code Diagnosis Note [id number] Brina Hurd MD Main - [facility] [address] [place] [address] 10/02/2024 19:18:11 10/02/2024 23:20:15 Postoperative visit 375073498 Z48.89 Dyspnea 563889652 R06.00 [id number] Jasmyn Wooten MD Main - [facility] [address] [place] [address] 02/02/2025 17:47:28 02/03/2025 19:30:55 Acute exacerbation of chronic congestive heart failure 387949150 I50.9 Health Concerns Section Related Observation LastModified by Organization Detai ls LastModified Time None Recorded Concern Status LastModified by Organization Details LastModified Time None Recorded Advance Directives Directive None Recorded Payers Insurance Date Sequence Insurance Name Policy Number Policy Braun Covered Member ID Braun Member ID Guarantor Name 02/02/2025 1 [facility] - DOS ON OR AFTER 2023 - DUAL ELIGIBLE - SNF OPTIONS AND ONE CARE (MEDICARE REPLACEMENT/ADV ANTAGE - HMO) Milla Guzman [id number] Milla Guzman Notes Date Note Type Note [...] 2, Cholecystectomy Comments: gallbladder removal on Sunday. [place] sob since d/c from hospital yesterday. 02 [...] ..................... ..................... ..................... ..................... ..................... ..................... ............... Immigration Investigator Note From Tyler Milligan: [facility] dispatched to the address listed above for the report of a female republican with post op SOB. Patient was found [...] she recently had her gallbladder removed at [facility] on 09/30, patient reports that the [...] Patient baseline vital signs obtained as noted. [facility] was consulted and advised that the patient should go to the hospital to R/O a pulmonary embolism. Patient agreed to go to the hospital and [place] called 911 for patient. Patient report given to transporting ambulance without incident. ..................... ..................... ..................... ..................... ..................... ..................... ............... [facility] Consulted: Brina Hurd ..................... ..................... ..................... ..................... ..................... ..................... ............... Disposition: Fulfilled Brina Hurd MD [address] [facility],[address], [place], [address], XtremIO 10/02/2024 19:57:17 02/02/2025 text/html HPI: Pt c/o [...] sided flank pain- no urinary symptoms. Shaun SCHROEDER Immigration Investigator Organization Information for [employer]e [employer] Business Legal Name: [employer]? Address: [address] [place] [address], Support Group Manager: Thomas Mccloud MD CLIA No.: [id number] Immigration Investigator POC Test Results from Clemente Koch iSTAT Chem8+ (18:05:40) Na: 137 mEq/L K: 4.0 mEq/L Cl: 106 mEq/L iCa: 1.09 mmol/L TCO2: 23 mmol/L Glu: 213 mg/dL BUN: 47 mg/dL Crea: 3.2 mg/dL Hct: 30 % Hb: 10.2 g/dL A mmol/L Attachments uploaded as part of this test result can be found under Documents section. ..................... ..................... ..................... ..................... ..................... ..................... ............... Immigration Investigator Note From Clemente Koch: [facility] makes pt contact a 74 yo F CC of edema. [facility] obtains vital signs. PT explains she [...] but diminished sounds. PT confirms no allergies. [facility] contacts [facility] and explains above mentioned. [facility] orders labs to be done to se kidney function and electrolyte levels. Labs are obtained via 20G IV in the right ac first attempt. Istat is performed and uploaded to [facility]. After discussing labs with [facility], [facility] orders 40mg OF furosemide IV, which is [...] the need for additional lasix. PT understands. MI clear. [facility] Lab Orders: BMP, serum or plasma: Performed ..................... ..................... ..................... ..................... ..................... ..................... ............... [facility] Consulted: Jasmyn Wooten ..................... ..................... ..................... ..................... ..................... ..................... ............... Disposition: Kumar Wooten MD [address] [facility],[address], [place], [address], [employer]rem[employer] 02/03/2025 00:02:11 OBGyn Episode No OBEpisode recorded.
--- OUTSIDE RECORDS SUMMARY | 2025-03-31 14:09 | XMS_ITS | Continuity of Care Document ---
Author Organization [facility] Address [address] [place] [address] [address] [place] [address] Phone Care Team Providers Care Dope Mixer Name Role Phone Elbert AVILES, JAMEEL, MIRZA, González Unavailable U navailable Procedures Procedure Date Office/Oupt E&M New Pt 45 Mins- CT & [place] Duplex Scan-extrem Veins; Comp- [place] & [place] Advance Directives Directive Yes / No Effective Date File Name No Information Encounters Encounter Description Practice Location Reason(s) For Visit Diagnoses Date Provider Providers Copied on Encounter [facility], [address] [place] [address] Dr [address], [id number], [place] tel:[phone] [facility] No Information 4 Elbert AVILES, JAMEEL, MIRZA Claudio. [address] [address], [place], [place], [id number] , [place]. tel:[phone] Office/Oupt E&M New Pt 45 Mins- CT & [place] [facility], [address] [place] [address] Dr [address], [id number], [place] tel:[phone] [facility] Chronic venous hypertension (idiopathic) with other complications of bilateral lower extremityLymphe brenda, not elsewhere classifiedType 2 diabetes mellitus without complicationsRe stless legs syndromeEssenti al (primary) hypertensionCra mp and spasmLocalized edema 4 Elbert AVILES RVT, MIRZA Claudio. [address] [facility], [address], [place], [id number] , [place]. tel:[phone] Referring Provider: Diana Hamm, [address] [facility], [place], [address]. tel:[phone] [facility], [address] [facility] [address], [place], [id number], tel:[phone] [facility] Chronic venous hypertension (idiopathic) with other complications of bilateral lower extremity 4 Elbert AVILES RVT, MIRZA Claudio. [address] [facility], [address], [place], [id number] , [place]. tel:[phone] Referring Provider: Diana Hamm, [address] [facility], [place], [address]. tel:[phone] Family History Family Member Type Diagnosis Age At Onset No Information Payers Payer name Insurance type Covered republican ID Krista fregoso(s) [facility] CI [id number] Social History Type Description Quantity Date Captured [...]
--- OUTSIDE RECORDS SUMMARY | 2025-03-31 14:09 | XMS_ITS | Encounter Summary ---
Author Organization [facility] Address [address] [place] [address] Care Team Providers Care Bottom Stainer Name Role Phone Diana Romano MD Primary Care Provider [phone] Encounter Details Date Type Department Care Team (Late st Contact Info) Description 03/12/2025 Telephone Internal Medicine [facility] [address] [phone] Diana Romano MD [address] [phone] Social History Tobacco Use Types Packs/Day Years [...] on file documented as of this encounter Plan of Treatment Upcoming Encounters Date Type Department Care Team (Late Contact Info) Description 04/10/2025 11:30 AM EDT Office Visit Internal Medicine [facility] [address] [phone] Diana Romano MD [address] [phone] 10/01/2025 10:40 AM EST Office Visit [facility] [address] [place] [address] Pancho Montes De Oca NP [address] [place] [address] Dr [address] [place] [address] documented as of this encounter Visit Diagnoses Not on filedocumented in this encounter Additional Health Concerns Assessment Noted Time PHQ-9 Depression Total Score: 0 01/08/20 25 10:50 AM EST documented as of this encounter Care Teams Bottom Stainer Relationship Specialty Start Date End Date Diana Romnao MD 175 [facility] [address] [place] [address] PCP - General Internal Medicine 02/25/13 documented as of this encounter
--- OUTSIDE RECORDS SUMMARY | 2025-03-31 14:09 | XMS_ITS ---
Author Name Sera Houser NP Address [address] [place] [address] Phone [phone] [facility] Care Team Providers Care Director Of Health Education Name Role Phone Sera Houser Unavailable [phone] [facility] Unavailable Unavailable Unavailable [phone] Unavailable Unavailable Unavailable Unavailable Unavailable [phone] Unavailable Unavailable [phone] Unavailable Unavailable [phone] Unavailable Unavailable [phone] Unavailable Unavailable [phone] Unavailable Unavailable [phone] Unavailable Unavailable [phone] Unavailable Unavailable [phone] Unavailable Unavailable [phone] [employer] Unavailable [phone] medline Unavailable [phone] [place]ag[place], Diana Unavailable [phone] CHELSIE MEYER Unavailable [phone] Reason for Referral Not Available Allergies, adverse [...] No Data Available B-D PEN NDL SHRT [id number](03/19 6) SHAW USE DIRECTED TO ADMINISTER INSULIN [...] Service Diagnosis/Co mplaint Medication List Documented (1159F) [facility] Medication List Documented (1159F) [facility] Medication List Documented (1159F) [facility] Medication List Documented (1159F) [facility] Medication List Documented (1159F) [facility] Medication List Documented (1159F) [facility] Medication List Documented (1159F) [facility] Medication List Documented (1159F) [facility]2022 Type 2 diabetes mellitus wit h diabetic chronic kidney diseaseChronic kidney disease, stage 3 unspecifiedChronic obstructive pulmonary disease, unspecifiedHyp hrt & chr kdny dis w hrt fail and stg 1-4/unsp chr kdnyHeart failure, unspecifiedHyperlipidemia, unspecifiedMajor depressive disorder, single episode, unspecifiedUnspecified osteoarthritis, unspecified site No Data Available [facility]2022 Unspecified osteoarthritis, unspecified siteOther chronic painHeart failure, unspecifiedChronic obstructive pulmonary disease, unspecified No Data Available [facility] 10[place]18/2022 Unspecified osteoarthritis, unspecified siteOther chronic pain No Data Available [facility] 01/02/2023 Cholecystitis, unspecified No Data Available [facility] 01/02/2023 Vital Signs Date of Collection Vitals 2022-09-11 07:40:43 Height - 165.1 cmWei ght - 109.32 kgBody Mass Index (BMI) - 40.1 kg/m2BP Diastolic - 84.0 mm[Hg]BP Systolic - 170.0 mm[Hg]Heart Rate - 88.0 /min Social History Social History Social History Observation Description Effec tive Time Current Smoking Status Never smoker 2025-03-19 3 Sex Female History of Procedures Procedures Service [...] (do not use for phone, instead use 37764-08) 40258 2022-09-11 No Data Available No Data Availa ble No Data Available [id number] 2022-09-22 No Data Available No Data Available No Data Available [id number] 2022-10-18 No Data Available No Data Available No Data Available [id number] 2023-01-02 No Data Available No Data Available [...] E ducation to avoid future hospitalization: Call [facility] if symptoms of illness develop. Cholecystitis [...] Cholecystitis [K81.9 ]> Pt will f/u with [facility] to schedule OP f/u for discussion of [...] hospital course: 12/20/22- 12/22/22Pt was seen at [facility] for chest and abdominal pain. She [...] BY MOUTH ONCE QHSB-D PEN NDL SHRT [id number](04/03) SHAW sig: USE DIRECTED TO ADMINISTER INSULIN [...]
[2025-03-31 18:08] LABS: Hematocrit 27.5 % (37.0-47.0); Mean Corpuscular HGB Conc 32.7 g/dl (31.0-35.0); Mean Corpuscular Hemoglobin 28.6 pg (27.0-33.0); Mean Corpuscular Volume 87.3 fL (80.0-98.0); Platelet Count 221 X10*3/uL (160-400); Red Blood Count 3.15 X10*6/uL (4.20-5.50); White Blood Count 5.9 X10*3/uL (4.8-10.8)
[2025-03-31 18:44] LABS: Anion Gap 16 (12-20); Blood Urea Nitrogen 55 mg/dL (9-16); Calcium 8.7 mg/dL (8.4-10.2); Carbon Dioxide 18 mmol/L (22-29); Chloride 109 mmol/L (96-108); Estimated Glomerular Filt Rate 19; Glucose Random 401 mg/dL (60-115); Sodium 139 mmol/L (135-145)
== END 2025-03-31 13:08 | disposition home or self-care (01) ==
LOC: HO.HKASLDS 13:07
PROVIDERS: Visit Provider Internal Medicine Hypertension Specialist
DX: E11.22 Type 2 diabetes mellitus with diabetic chronic kidney disease (principal); N18.4 Chronic kidney disease, stage 4 (severe); D63.1 Anemia in chronic kidney disease
CPT/HCPCS: 36415; 80048; 85027

== ENCOUNTER 2025-04-01 09:43 | Outpatient (AMB) | payer OTHER, SELFPAY ==
[2025-04-01 09:45] VITALS: BP 148/60; PULSE 65; O2SAT 99
--- NOTE | 2025-04-01 09:45 | HO.NEPHOV ---
Vital Signs 04/01/25 09:45 Height 5 ft 6 in BP 148/60 H Blood Pressure Location Lt brachial Position Sitting Pulse 65 Pulse Source Pulse Oximeter Pulse Oximetry (%) 99 Oxygen Delivery Method Room Air Intake Visit Reasons: f/u appt Conf Certified Nuclear Medicine Technologist Required: No Accompanied by: Self / Same As Patient Allergies No Known Allergies Allergy (Verified 04/01/25 09:46) Medication List - Last Reconciled 04/01/25 by Martín De Luna MD albuterol sulfate 90 mcg/actuation (ProAir HFA) 2 puffs inhalation Q6H PRN albuterol sulfate 90 mcg/actuation (ProAir RespiClick) 1 inh inhalation Q4-6H PRN aspirin 81 mg PO DAILY atorvastatin 80 mg PO DAILY carvedilol 12.5 mg PO BID cholecalciferol (vitamin D3) 50 mcg PO DAILY ferrous sulfate (FeroSul) 325 mg PO DAILY furosemide 80 mg PO DAILY hydralazine 75 mg (1.5 x 50 mg) PO TID insulin glargine (Lantus Solostar U-100 Insulin) 62 units subcut DAILY insulin lispro (Humalog KwikPen (U-100) Insulin) subcut metolazone 2.5 mg PO DAILY PRN nifedipine ER mg PO DAILY pantoprazole 40 mg PO DAILY potassium chloride ER 10 mEq PO DAILY HPI Comments Details: 73-year-old pleasant woman with a history of diabetes mellitus for more than 35 years who was at chronic kidney disease. She is history of congestive heart failure and was on Entresto Lasix and furosemide. Back in November of 2023 creatinine was 2.6 with EGFR of 19 mL/minute. She is currently in nifedipine 60mg daily, hydralazine 75mg TID, carvedilol 12.5mg BID and furosemide 40mg PO BID She continues to have back pain. She has chronic shortness of breath (reports since prior to heart surgery last year which she states did not really help her breathing much. States at rest is ok, with exertion continues to have some dyspnea chronically). No nausea, vomiting. She has leg edema. Wears compression stockings. No weight loss. All other systems were reviewed History of congestive heart failure with preserved ejection fraction. 09/10/24 reports shortness of breath for a while now reports a year ago had open heart surgery, reports before then had it but surgery didn't make it better and has continued blood pressure medications- reports has not taken yet this a.m. Reports SBP at home is usually in 130s. 10/15/2024. Milla was hospitalized about a week ago. She had acute kidney injury superimposed on CKD with fungemia. Serum creatinine peaked more than 4. Diuretics were held. Renal function gradually improved. She is currently not on diuretics creatinine is around 3. She has significant edema. No shortness of breath at present. Accompanied by her family member. She had recently undergone laparoscopic cholecystectomy for symptomatic cholelithiasis. During this hospitalization faustina was negative. He has been catheter was inserted 1121. She is currently on Micafungin and Zosyn 12/03/24; BP was low ; She was hospitalized @ [facility]; Nov 2023 : Cr 2.2 ;Nov 2024 Cr 2.2 with eGFR of 22 ml/mt 01/14/25: Recently in ER for a viral infection; Resolved 02/04/25 Leg edema increased;Received IV Lasix 03/04/25 ;Here for follow up;Seen last week by for worsening renal function ;Diuretics were decreased ;She feels better Edema has improved ;Cr is still up 04/01/25 74-year-old female presenting for the ongoing management of chronic kidney disease. She reports an improvement in her kidney function, from 14% to 19%, over recent evaluations. There is ongoing management of her hypertension and diabetes, with noted dietary influences on her blood glucose control. During a recent vacation, she experienced fluctuations in her blood glucose levels due to less consistent insulin use. The patient reports continued management of edema in her lower extremities, utilizing diuretics and support stockings. Recent anemia was addressed with a corrective injection following a hemoglobin report at 9.0, with close monitoring planned. She describes an increased activity level during a vacation, which she believes positively impacted her overall condition. Her breathing remains stable, and she maintains a stable weight. [facility] Medical History Chronic kidney disease Degenerative joint disease (DJD) of hip Cataract Bunion Fatty liver DJD (degenerative joint disease), lumbar DJD (degenerative joint disease), cervical Diabetes mellitus type 2 with neurological manifestations Vitamin D deficiency Urinary incontinence Allergic rhinitis GERD (gastroesophageal reflux disease) Depression Diabetic retinopathy Hypertension Hyperlipidemia Diabetic nephropathy Surgical History History of cholecystectomy (~09/2024) History of open heart surgery (~02/2023) History of adjustable gastric banding Social History Patient Tobacco Use Status: Never used Tobacco Physical Exam Neck Neck: Yes supple Resp Auscultation: clear to auscultation bilaterally Cardio Palpation: no palpable S3 Heart sounds: no rubs GI Palpation (GI): Soft to palpation Auscultation: normal bowel sounds Neuro Motor exam (neuro): no asterixis Extrem General: Yes edema Results Reviewed Nephrology Results: Hgb 9.0 g/dl (12.0-16.0) L 03/31/25 WBC 5.9 X10*3/uL (4.8-10.8) 03/31/25 Plt Count 221 X10*3/uL (160-400) 03/31/25 Sodium 139 mmol/L (135-145) 03/31/25 Potassium 4.0 mmol/L (3.3-5.1) 03/31/25 Chloride 109 mmol/L (96-108) H 03/31/25 Carbon Dioxide 18 mmol/L (22-29) L 03/31/25 BUN 55 mg/dL (9-16) H 03/31/25 Creatinine 2.51 mg/dL (0.5-1.4) H 03/31/25 Calcium 8.7 mg/dL (8.4-10.2) 03/31/25 Phosphorus 4.6 mg/dL (2.7-4.5) H 02/24/25 PTH Intact 297.3 pg/mL (8.7-77.1) H 02/24/25 Assessment & Plan Assessment & Plan (1) Diabetes mellitus with chronic kidney disease: Code(s): E11.22 - Type 2 diabetes mellitus with diabetic chronic kidney disease Category: Medical Qualifiers: Chronic kidney disease stage: stage 4 (severe) Diabetes mellitus adjunct faculty for medical terminology insulin use: with adjunct faculty for medical terminology use Diabetes mellitus type: type 2 Qualified Code(s): E11.22 - Type 2 diabetes mellitus with diabetic chronic kidney disease; N18.4 - Chronic kidney disease, stage 4 (severe); Z79.4 - intermediate card tender (current) use of insulin (2) JERZY (acute kidney injury): Code(s): N17.9 - Acute kidney failure, unspecified Category: Medical (3) Hypertension: Code(s): I10 - Essential (primary) hypertension Category: Medical Qualifiers: Hypertension type: primary hypertension Qualified Code(s): I10 - Essential (primary) hypertension (4) Anemia in chronic kidney disease: Code(s): N18.9 - Chronic kidney disease, unspecified; D63.1 - Anemia in chronic kidney disease Category: Medical Qualifiers: Chronic kidney disease stage: stage 4 (GFR 15-29) Qualified Code(s): N18.4 - Chronic kidney disease, stage 4 (severe); D63.1 - Anemia in chronic kidney disease (5) Chronic kidney disease: Code(s): N18.9 - Chronic kidney disease, unspecified Category: Medical Qualifiers: Chronic kidney disease stage: stage 4 (severe) Qualified Code(s): N18.4 - Chronic kidney disease, stage 4 (severe) Plan 74-year-old woman with a history of longstanding diabetes mellitus and coronary disease with stage IV CKD. CKD is most likely due to underlying diabetic kidney disease. Nondiabetic causes seem unlikely based on the clinical picture. Cr is better Down to 2.51 as of 03/31/25 ( drop in GFR was most likely from hypoperfusion) Keep on lower dose of diuretics for now and reassess Maintain A1c less than 7%. She is on adequate dose of diuretics at this time. She should stay on low-sodium diet which she is working on. She will benefit from SGLT2 inhibitors. Hypertension. 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 Iron stores are adequate. Administered Retacrit 75073 U administered subcutaneously today into right arm LOT [id number] Exp [id number] secondary hyperparathyroidism Mild elevation PTH. She will follow this and start her on vitamin D3 analog as needed. Discussed Dialysis options Has been referred for home dialysis evaluation Orders: Orders [facility] E[facility] Supplied Today D63.1 - Anemia in chronic kidney disease, E11.22 - Type 2 diabetes mellitus with diabetic chronic kidney disease, N18.4 - Chronic kidney disease, stage 4 (severe), N40.1 - Benign prostatic hyperplasia with lower urinary tract symptoms [facility] Supplied Today N40.1 - Benign prostatic hyperplasia with lower urinary tract symptoms Basic Metabolic Panel 1 Month D63.1 - Anemia in chronic kidney disease, E11.22 - Type 2 diabetes mellitus with diabetic chronic kidney disease, N18.4 - Chronic kidney disease, stage 4 (severe) Complete Blood Count no Diff 1 Month D63.1 - Anemia in chronic kidney disease, E11.22 - Type 2 diabetes mellitus with diabetic chronic kidney disease, N18.4 - Chronic kidney disease, stage 4 (severe) Medications: New epoetin disha-epbx 20,000 units subcut ONCE 1 mL 0RF anemia D63.1 - Anemia in chronic kidney disease, E11.22 - Type 2 diabetes mellitus with diabetic chronic kidney disease, N18.4 - Chronic kidney disease, stage 4 (severe), N40.1 - Benign prostatic hyperplasia with lower urinary tract symptoms epoetin disha-epbx 20,000 units subcut ONCE 1 mL 0RF anemia N40.1 - Benign prostatic hyperplasia with lower urinary tract symptoms Coding Level of Care Code Est Pt Level 4 (98667) Diagnoses Type 2 diabetes mellitus with stage 4 chronic kidney disease, with long-term current use of insulin E11.22; N18.4; Z79.4 Chronic kidney disease stage: stage 4 (severe) Diabetes mellitus adjunct faculty for medical terminology insulin use: with long-term use Diabetes mellitus type: type 2 JERZY (acute kidney injury) N17.9 Primary hypertension I10 Hypertension type: primary hypertension Anemia in stage 4 chronic kidney disease N18.4; D63.1 Chronic kidney disease stage: stage 4 (GFR 15-29) Stage 4 chronic kidney disease N18.4 Chronic kidney disease stage: stage 4 (severe)
--- OUTSIDE RECORDS SUMMARY | 2025-04-01 10:19 | XMS_ITS ---
Author Name Sera Houser NP Address [address] [place] [address] Phone [phone] [facility] Care Team Providers Care Light Armored Reconnaissance Officer Name Role Phone Sera Houser Unavailable [phone] [facility] Unavailable [phone] Unavailable Unavailable [phone] Unavailable Unavailable Unavailable Unavailable Unavailable [phone] Unavailable Unavailable [phone] Unavailable Unavailable [phone] Unavailable Unavailable [phone] Unavailable Unavailable [phone] Unavailable Unavailable [phone] Unavailable Unavailable [phone] Unavailable Unavailable [phone] Unavailable Unavailable [phone] [employer] Unavailable [phone] medline Unavailable [phone] [place]ag[place], Diana Unavailable [phone] CHELSIE EMYER Unavailable [phone] Reason for Referral Not Available Allergies, adverse [...] No Data Available B-D PEN NDL SHRT [id number](03/19 6) SHAW USE DIRECTED TO ADMINISTER INSULIN [...] Service Diagnosis/Co mplaint Medication List Documented (1159F) [facility] Medication List Documented (1159F) [facility] Medication List Documented (1159F) [facility] Medication List Documented (1159F) [facility] Medication List Documented (1159F) [facility] Medication List Documented (1159F) [facility] Medication List Documented (1159F) [facility] Medication List Documented (1159F) [facility] Type 2 diabetes mellitus wit h diabetic chronic kidney diseaseChronic kidney disease, stage 3 unspecifiedChronic obstructive pulmonary disease, unspecifiedHyp hrt & chr kdny dis w hrt fail and stg 1-4/unsp chr kdnyHeart failure, unspecifiedHyperlipidemia, unspecifiedMajor depressive disorder, single episode, unspecifiedUnspecified osteoarthritis, unspecified site No Data Available [facility]/22/2022 Unspecified osteoarthritis, unspecified siteOther chronic painHeart failure, unspecifiedChronic obstructive pulmonary disease, unspecified No Data Available [facility] 10/18/2022 Unspecified osteoarthritis, unspecified siteOther chronic pain No Data Available [facility] 01/02/2023 Cholecystitis, unspecified No Data Available [facility] 01/02/2023 Vital Signs Date of Collection Vitals 2022-09-11 07:40:43 Height - 165.1 cmWei ght - 109.32 kgBody Mass Index (BMI) - 40.1 kg/m2BP Diastolic - 84.0 mm[Hg]BP Systolic - 170.0 mm[Hg]Heart Rate - 88.0 /min Social History Social History Social History Observation Description Effec tive Time Current Smoking Status Never smoker 2025-03-19 4 Sex Female History of Procedures Procedures Service [...] (do not use for phone, instead use 62451-42) 92137 2022-09-11 No Data Available No Data Availa ble No Data Available [id number] 2022-09-22 No Data Available No Data Available No Data Available [id number] 2022-10-18 No Data Available No Data Available No Data Available [id number] 2023-01-02 No Data Available No Data Available [...] E ducation to avoid future hospitalization: Call [facility] if symptoms of illness develop. Cholecystitis [...] Cholecystitis [K81.9 ]> Pt will f/u with [facility] to schedule OP f/u for discussion of [...] hospital course: 12/20/22- 12/22/22Pt was seen at [facility] for chest and abdominal pain. She [...] BY MOUTH ONCE QHSB-D PEN NDL SHRT [id number](04/03) SHAW sig: USE DIRECTED TO ADMINISTER INSULIN [...]
--- OUTSIDE RECORDS SUMMARY | 2025-04-01 10:19 | XMS_ITS | Continuity of Care Document ---
Author Organization [facility] Address [address] [place] [address] Dr [address] [place] [address] Phone Care Team Providers Care Drivers License Examiner Name Role Phone Elbert AVILES, JAMEEL, MIRZA, González Unavailable U navailable Procedures Procedure Date Office/Oupt E&M New Pt 45 Mins- CT & [place] Duplex Scan-extrem Veins; Comp- [place] & [place] Advance Directives Directive Yes / No Effective Date File Name No Information Encounters Encounter Description Practice Location Reason(s) For Visit Diagnoses Date Provider Providers Copied on Encounter [facility], [address] [place] [address] Dr [address] [address], [id number], [place] tel:[phone] [facility] No Information 4 Elbert AVILES, JAMEEL, MIRZA Claudio. [address] [address], [place], [place], [id number] , [place]. tel:[phone] Office/Oupt E&M New Pt 45 Mins- CT & [place] [facility], [address] [place] [address] Dr [address], [id number], [place] tel:[phone] [facility] Chronic venous hypertension (idiopathic) with other complications of bilateral lower extremityLymphe brenda, not elsewhere classifiedType 2 diabetes mellitus without complicationsRe stless legs syndromeEssenti al (primary) hypertensionCra mp and spasmLocalized edema 4 Elbert AVILES RVT, MIRZA Claudio. [address] [facility], [address], [place], [id number] , [place]. tel:[phone] Referring Provider: Diana Hamm, [address] [facility], [facility] [address], [place], [address]. tel:[phone] [facility], [address] [facility] [address], [place], [id number], tel:[phone] [facility] Chronic venous hypertension (idiopathic) with other complications of bilateral lower extremity 4 Elbert AVILES RVT, MIRZA Claudio. [address] [facility], [address], [place], [id number] , [place]. tel:[phone] Referring Provider: Diana Hamm, [address] [facility], [facility] [address], [place], [address]. tel:[phone] Family History Family Member Type Diagnosis Age At Onset No Information Payers Payer name Insurance type Covered republican ID Krista fregoso(s) [facility] CI [id number] Social History Type Description Quantity Date Captured [...]
--- OUTSIDE RECORDS SUMMARY | 2025-04-01 10:19 | XMS_ITS | Clinical Summary ---
Author Organization 175 [facility] Address [address] [place] [address] Phone Care Team Providers Care Caramel Candy Maker Name Role Phone Dionisio Romano MD Primary Care Provider [phone] Allergies No known active allergies Medications docusate sodium (COLACE) 100 mg capsule Take 1 Capsule by mouth 2 times daily for 360 days. 08/11/20 24 025 Active aspirin 81 mg EC tablet Take [...] Inject into the skin. Sliding scale Active metOLazone (ZAROXOLYN) 2.5 mg tablet Take [...] 24 hr tabletIndicati ons:Coronary artery disease involving [place] coronary artery of [place] heart without angina pectoris Take 1 tablet [...] DAILY 90 tablet 1 03/04/20 25 Active pantoprazole (PROTONIX) 40 mg EC tablet TAKE 1 TABLET BY MOUTH DAILY 90 tablet 1 03/06/20 25 Active furosemide (LASIX) 40 mg tablet Take 2 tablets (80 mg total) by mouth 1 (one) time each day. 90 tablet 3 03/06/20 25 Active potassium chloride (Pokonza) 10 mEq packet Take 1 tablet by mouth 2 (two) times a day. 180 packet 1 03/26/20 25 Active furosemide (LASIX) 40 mg tablet Take 2 tablets (80 mg total) by mouth 1 (one) time each day. 07/08/20 24 025 Discontinued(Re order) potassium chloride (Pokonza) 10 mEq packet Take 1 tablet by mouth 2 (two) times a day. 025 Discontinued(Re order) pantoprazole (PROTONIX) 40 mg EC tablet TAKE 1 TABLET BY MOUTH DAILY 90 tablet 1 09/24/20 025 Discontinued Active Problems Problem Noted Date Diagnosed Date (HFpEF) heart failure with p reserved ejection fraction ([facility] V24, CMS/[facility] V28) 12/12/2024 Assessment & Plan (12/12/2024 10:28 [...] echocardiogram in September 2024 while hospitalized at [facility] which was reviewed. Abdominal pain 12/09/2024 Hypotension 12/09/2024 Atypical chest pain 12/19/2023 Assessment & Plan (01/12/2025 11:16 AM EST): Stress test reassuring without perfusion abnormalities chest discomfort perhaps musculoskeletal also probably was related to Novoa catheter. I reassured her. Assessment & Plan (12/12/2024 10:28 AM EST): See CAD plan. Orders: Nuclear stress test with myocardial perfusion; Future Heart failure (CMS/[facility] V24, CMS/[facility] V28) 024 Pulmonary edema 12/19/2023 Edema 09/25/2023 Coronary artery disease invo lving mo[place] coronary artery of [place] heart without angina pectoris 03/26/2023 Overview (09/04/2024): [...] mellitus type 2 wit h neurological manifestations ([facility] V24, [facility] V28) 02/13/2017 DJD (degenerative joint disease), cervical 02/13 DJD (degenerative joint disease), lumbar 017 Fatty liver 02/13/2017 GERD (gastroesophageal reflux disease) 7 Type 2 diabetes mellitus wit h cataract ([facility] V24, [facility] V28) 02/13/2017 Urinary incontinence 02/13/2017 Venous insufficiency [...] D deficiency 02/13/2017 Depression 02/08/2017 Diabetic neuropathy ([facility] V24, [facility] V28) 0 02/08/2017 Diabetic retinopathy ([facility] V24, [facility] V28) 02/08/2017 Hyperlipidemia 02/08/2017 Overview (09/04/2024): Last [...] Encounters Date Type Department Care Team Description 03/12/2025 Telephone Internal Medicine - [address] [place] [phone] Dionisio Romano MD 01/08/2025 10:30 AM EST Telemedicine [facility] Cardiology [place] [address] [place] [phone] Michael Torrez MD Atypical chest pain (Primary Dx); Coronary artery disease involving [place] coronary artery of [place] heart without angina pectoris 01/06/2025 Telephone [facility] Cardiology [place] [address] [place] [address] Michael Torrez MD Appointment from Last 3 Months Immunizations Name Administration [...] PROCEDURE: HISTORICAL ROTATOR CUFF REPAIR APPENDECTOMY PROCEDURE: CA APPENDECTOMY CATARACT EXTRACTION PROCEDURE: HISTORICAL CATARACT REMOVAL OTHER SURGICAL HISTORY PROCEDURE: ---- OTHER ----; COMMENT: venous ligation LAPAROSCOPIC GASTRIC BANDING PROCEDURE: LAP ADJUSTABLE GASTRIC BAND CORONARY ARTERY BYPASS GRAFT Medical History Medical History Date Comments Diabetic neuropathy ([facility] V24, [facility] V28) 02/08/2017 DX:Diabetic neuropathy ([facility]) Hyperlipidemia 02/08/2017 DX:Hyperlipidemi a Hypertension 02/08/2017 DX:Hypertension Diabetic retinopathy ([facility] V24, [facility] V28) 02/08/2017 DX:Diabetic retinopathy ([facility] ) Depression 02/08/2017 DX:Depression History of adjustable gastric banding 02/13/2017 DX:History of adjustable gastric banding Diabetes mellitus type 2 wit h neurological manifestations ([facility] V24, [facility] V28) 02/13/2017 DX:Diabetes mellitus type 2 with neurological manifestations (HCC) Type 2 diabetes mellitus wit h eye manifestations ([facility] V24, [facility] V28) 02/13/2017 DX:Type 2 diabetes mellitus with eye manifestations (HCC) Type 2 diabetes mellitus wit h cataract ([facility] V24, [facility] V28) 02/13/2017 DX:Type 2 diabetes mellitus with cataract ([facility]) Allergic rhinitis 02/13/2017 DX:Allergic rh initis GERD [...] Insulin dependent type 2 destini betes mellitus ([facility] V24, [facility] V28) DX:Insulin depende nt type 2 diabetes mellitus (HCC) RUQ pain DX:RUQ pain Anemia Diabetes ([facility] V24, [facility] V28) Family History Medical History Relation Name [...] AM EDT Office Visit Internal Medicine - [place] [address] [place] [address] Dionisio Romano MD [address] [place] [address] 10/01/2025 10:40 AM EST Office Visit [facility] [address] [place] [address] Pancho Montes De Oca NP [address] [place] [address] [address] [place] [address] Health Maintenance Due Date Last Done Comments [...] stage IV (severe) (CMS/HCC V24, CMS/HCC V28) BASIC METABOLIC PANEL Routine 12/16/2024 9:48 AM [...] Routine 06/21/2023 HEPATITIS C SCREENING Routine 02/27/2023 [facility] DEXA AXIAL SKELETON Routine 12/05/2022 5:38 PM EST Encounter for screening for osteoporosis HEMOGLOBIN A1C Routine 06/01/2021 LIPID PANEL Routine 06/01/2021 from Last 3 Months or Most Recently Relevant to Health Maintenance Results * (ABNORMAL) Complete blood count (01/26/2025 12:00 PM EDT) WBC 6.0 4.8 - 10.8 K/mcL LAB HEMETOLOGY METHOD 01/26/2025 2:29 PM EDT [facility] RBC 3.20(L) 3.80 - 4.80 M/mcL LAB HEMETOLOGY METHOD 01/26/2025 2:29 PM EDT [facility] Hemoglobin 9.0(L) 11.5 - 16.0 g/dL LAB HEMETOLOGY METHOD 01/26/2025 2:29 PM EDT [facility] Hematocrit 28.7(L) 35.0 - 47.0 % LAB HEMETOLOGY METHOD 01/26/2025 2:29 PM EDT [facility] MCV 89.4 79.0 - 98.0 FL LAB HEMETOLOGY METHOD 01/26/2025 2:29 PM EDT [facility] MCH 28.0 27.0 - 32.0 pcg LAB HEMETOLOGY METHOD 01/26/2025 2:29 PM EDT [facility] MCHC 31.4(L) 32.0 - 37.0 g/dL LAB HEMETOLOGY METHOD 01/26/2025 2:29 PM EDT [facility] RDW 17.5(H) 11.0 - 15.0 % LAB HEMETOLOGY METHOD 01/26/2025 2:29 PM EDT [facility] Platelets 245 130 - 400 K/mcL LAB HEMETOLOGY METHOD 01/26/2025 2:29 PM EDT [facility] MPV 11.8(H) 7.0 - 11.0 FL LAB HEMETOLOGY METHOD 01/26/2025 2:29 PM EDT [facility] NRBC 0.0 <1.0 % LAB HEMETOLOGY METHOD 01/26/2025 2:29 PM EDT [facility] NRBC Absolute 0.00 <0.10 K/mcL LAB HEMETOLOGY METHOD 01/26/2025 2:29 PM EDT [facility] Blood Venous blood specimen / Unknown Venipuncture / Unknown 01/26/2025 12:00 PM EDT 01/26/2025 12:00 PM EDT Martín De Luna MD LAB BLOOD ORDERABL ES Final Result [facility] [address] [place] [address], * (ABNORMAL) Basic metabolic panel (12/16/2024 9:48 AM EST) Sodium 137 133 - 145 mmol/L LAB CHEMISTRY METHOD 12/16/2024 2:56 PM EST [facility] Potassium 4.1 3.5 - 5.5 mmol/L LAB CHEMISTRY METHOD 12/16/2024 2:56 PM [facility] Chloride 104 96 - 110 mmol/L LAB CHEMISTRY METHOD 12/16/2024 2:56 PM [facility] CO2 29 21 - 32 mmol/L LAB CHEMISTRY METHOD 12/16/2024 2:56 PM [facility] Anion Gap 4 3 - 11 LAB CHEMISTRY METHOD 12/16/2024 2:56 PM [facility] Glucose 223(H) 70 - 100 mg/dL LAB CHEMISTRY METHOD 12/16/2024 2:56 PM [facility] BUN 36(H) 5 - 25 mg/dL LAB CHEMISTRY METHOD 12/16/2024 2:56 PM [facility] Creatinine 2.33(H) 0.50 - 1.10 mg/dL LAB CHEMISTRY METHOD 12/16/2024 2:56 PM [facility] eGFR 22(L) >=60 mL/min/1. 73m2 LAB CHEMISTRY METHOD 12/16/2024 2:56 PM [facility] Comment:Calculation based on the??Chronic Kidney Disease Epidemiology Collaboration (CKD-EPI) equation refit??without adjustment for race. BUN/Creatinine Ratio 15.5 LAB CHEMISTRY METHOD 12/16/2024 2:56 PM [facility] Calcium 9.2 8.5 - 10.5 mg/dL LAB CHEMISTRY METHOD 12/16/2024 2:56 PM [facility] Blood Venous blood specimen / Unknown Venipuncture / Unknown 12/16/2024 9:48 AM EST 12/16/2024 9:48 AM EST us Dionisio Romano MD LAB BLOOD ORDERABLES Final Res ult [facility] [address] [place] [address], [place] [phone] * MG Mammo Digital Diagnostic w Isaac bilat (11/13/2024 8:23 AM EST) Anatomical Region Laterality Modality Breast Bilateral Mammography 11/13/2024 8:11 AM EST Impressions 11/13/2024 8:21 AM EST Benign. BI-RADS CATEGORY: 2 - BENIGN RECOMMENDATION: Screening bilateral mammogram is recommended in 1 year. Mammo Location: [facility], [address] [place] [id number] -------- FINAL REPORT -------- Dictated By: Daniel Gregory Dictated Date: 11/13/2024 08:11 ET Assigned Physician: Daniel Gregory Reviewed and Electronically Signed By: Daniel Gregory Signed Date: 11/13/2024 08:21 ET Workstation ID: [id number] Transcribed By: Self Edit Transcribed Date: 11/13/2024 [...] and CC projection is performed in the Affinioe 2000-D unit. ??Computer aided detection utilizing the [...] and CC projection is performed in the Senographe 2000-D unit. Computer aided detection utilizing the YvolverDsystem was utilized. FINDINGS: The breasts are again [...] is recommended in 1 year. Mammo Location: [facility], [address] [place] [id number] -------- FINAL REPORT -------- Dictated By: Daniel Gregory Dictated Date: 11/13/2024 08:11 ET Assigned Physician: Daniel Gregory Reviewed and Electronically Signed By: Daniel Gregory Signed Date: 11/13/2024 08:21 ET Workstation ID: [id number] Transcribed By: Self Edit Transcribed Date: 11/13/2024 08:11 ET Dionisio Romano MD IM BI PROCEDURES Final Result * Diabetes Eye Exam (05/12/2024) [facility] Diabetes: Annual Retina Eye Exam abstracted Result [facility] Provider HEALTH MAINTENANCE Final Result * Colonoscopy (04/16/2024) [facility] Colonoscopy no interpretation , abstracted Anatomical Region Laterality Modality Other Result [facility] Provider HEALTH MAINTENANCE Final Result * Diabetes Foot Exam (10/09/2023) [facility] Diabetes: Annual Foot Exam abstracted Result [facility] HEALTH MAINTENANCE Final Result * Urine Albumin Creatinine Ratio (06/21/2023) [facility] Urine Albumin Creatinine Ratio abstracted Result [facility] HEALTH MAINTENANCE Final Result * Hepatitis C Screening (02/27/2023) [facility] Hepatitis C Screening abstracted us Historical Provider HEALTH MAINTENANCE Final Result * [facility] DEXA AXIAL SKELETON (12/05/2022 5:38 PM EST) Anatomical Region Laterality Modality Mammography 12/05/2022 11:1 5 AM EST Narrative 12/05/2022 5:38 PM EST [facility] Diagnostic Imaging Department [address] [place] [id number] Patient: ??TALIA WATTS ?/Age/Sex: 1950 - 71 - F Unit#: ??[id number] ? Location/Status: ??SPDIMAM/REG CLI ? Mnemonic/Ordering Site: ??MAMDEXAAX/SPMAM Ordering Physician: ??DIONISIO ROMANO MD [facility] Dexa Axial Skeleton - 12/05/22 - History: Low estrogen state due to menopause. On omeprazole. Comparison: 08/10/14 Findings: Bone densitometry is performed utilizing dual energy x-ray absorptiometry (DXA) in the Datahero unit. The lumbar spine and proximal femora [...] 0.1 percent. IMPRESSION: Normal bone mineral density. [id number] Dictating Physician: ??LATRICE SIMS MD Electronically Signed by: ??LATRICE SIMS MD Dic Date/Time: ??12/05/221736 Sign date/Time: ??12/05/221737 Procedure Note Latrice Sims MD - 12/21/2023 [facility] Diagnostic Imaging Department [address] [place] [address] Patient: TALIA WATTS /Age/Sex: 1950 - 71 - F Unit#: [id number] Location/Status: [facility] Mnemonic/[facility]ing [facility] Ordering Physician: DIONISIO ROMANO MD [facility] Dexa Axial Skeleton - 12/05/22 - History: Low estrogen state due to menopause. On omeprazole. Comparison: 08/10/14 Findings: Bone densitometry is performed utilizing dual energy x-ray absorptiometry(DXA) in the Datahero unit. The lumbar spine and proximal femora [...] 0.1 percent. IMPRESSION: Normal bone mineral density. [id number] Dictating Physician: LATRICE SIMS MD Electronically Signed by: LATRICE SIMS MD Dic Date/Time: 12/05/221736 Sign date/Time: 12/05/221737 Dionisio Romano MD IMG BI PROCEDURES Final Result * (ABNORMAL) Hemoglobin A1c (06/01/2021) Pathologist [facility] Hemoglobin A1C 9.1(A) <=6.5 % Blood Venous blood specimen / Unknown Historical Provider LAB BLOOD ORDERABLES Adilia l Result * Lipid panel (06/01/2021) Pathologist [facility] LDL/HDL Ratio 3 0 - 4 Triglycerides 125 0 - 150 mg/dL Cholesterol 142 0 - 200 mg/dL HDL 57 >=40 mg/dL LDL Cholesterol 60 0 - 100 mg/dL Blood Venous blood specimen / Unknown Result [facility] Historical Provider LAB BLOOD ORDERABLES Adilia l Result from Last 3 Months or Most Recently Relevant to Health Maintenance Insurance [facility] [employer] MEDICARE Member Subscriber Plan / Payer (Ef fective 2023-Present) Name:Talia Watts Relation to Subscriber:Self Name:Talia Watts Payer ID:[id number] Group ID:[id number] Type:Not on file Address: [place] [address] [address] [address] Care Teams Caramel Candy Maker Relationship Specialty Start Date End Date Dionisio Romano MD [address] [address] PCP - General Internal Medicine 02/25/13
--- OUTSIDE RECORDS SUMMARY | 2025-04-01 10:19 | XMS_ITS | Continuity of Care Document ---
Author Organization [facility]. If a dditional information is needed, contact Health Information Management at [phone] [place] [address] Phone Care Team Providers Care Supply Specialist Name Role Phone Unavailable Unavailable Unavailable Unavailable Unavailable Unavailable Unavailable Unavailable Unavailable Unavailable Unavailable Unavailable Problems Disorder of toe Onset:16-Mar-2024 Talha Ackerman APRN Chest pain Onset:11-Jan-2015 Allergies and Adverse Reactions No Known Drug Intolerances(A llergy) Onset: 11-Jan-2015 Reaction:UNKNOWN Social History Smoking Status Never smoked tobacco Recorded: 16-Mar-2024
--- OUTSIDE RECORDS SUMMARY | 2025-04-01 10:19 | XMS_ITS | Encounter Summary ---
Author Organization [facility] Address [address] [place] [address] Care Team Providers Care Grey Goods Examiner Name Role Phone Diana Romano MD Primary Care Provider [phone] Encounter Details Date Type Department Care Team (Late st Contact Info) Description 03/12/2025 Telephone Internal Medicine [facility] [address] [phone] Diana Romano MD [address] [phone] Social History Tobacco Use Types Packs/Day Years [...] 11:30 AM EDT Office Visit Internal Medicine [facility] [address] [address] Diana Romano MD [address] [address] 10/01/2025 10:40 AM EST Office Visit [facility] [address] [place] [address] Pancho Montes De Oca NP [address] [place] [address] [address] [place] [address] documented as of this encounter Visit Diagnoses Not on filedocumented in this encounter Additional Health Concerns Assessment Noted Time PHQ-9 Depression Total Score: 0 01/08/20 25 10:50 AM EST documented as of this encounter Care Teams Grey Goods Examiner Relationship Specialty Start Date End Date Diana Romano MD 175 [facility] [address] [place] [address] PCP - General Internal Medicine 02/25/13 documented as of this encounter
== END 2025-04-01 10:00 | disposition home or self-care (01) ==
PROVIDERS: PCP Internal Medicine; Visit Provider Internal Medicine Hypertension Specialist
DX: E11.22 Type 2 diabetes mellitus with diabetic chronic kidney disease (principal); N18.4 Chronic kidney disease, stage 4 (severe); Z79.4 Long term (current) use of insulin; N17.9 Acute kidney failure, unspecified; I12.9 Hypertensive chronic kidney disease with stage 1 through stage 4 chronic kidney disease, or unspecified chronic kidney disease; D63.1 Anemia in chronic kidney disease
CPT/HCPCS: 99214

== ENCOUNTER → 2025-04-01 09:43 | Outpatient (BNVA) | payer OTHER, SELFPAY | PROVIDERS: PCP Internal Medicine; Visit Provider Internal Medicine Hypertension Specialist | DX: E11.22 Type 2 diabetes mellitus with diabetic chronic kidney disease (principal); I12.9 Hypertensive chronic kidney disease with stage 1 through stage 4 chronic kidney disease, or unspecified chronic kidney disease; N18.4 Chronic kidney disease, stage 4 (severe); N17.9 Acute kidney failure, unspecified; D63.1 Anemia in chronic kidney disease; Z79.4 Long term (current) use of insulin | CPT/HCPCS: 96372; 99212; Q5106 ==

== ENCOUNTER 2025-04-29 09:16 | Outpatient (AMB) | payer OTHER, SELFPAY ==
[2025-04-29 09:21] VITALS: BP 156/62; PULSE 67; O2SAT 98
--- NOTE | 2025-04-29 09:21 | HO.NEPHOV_ITS ---
Vital Signs 04/29/25 09:21 Height 5 ft 6 in BP 156/62 H Blood Pressure Location Lt brachial Position Sitting Pulse 67 Pulse Source Pulse Oximeter Pulse Oximetry (%) 98 Oxygen Delivery Method Room Air Intake Visit Reasons: 1mon Retacrit follwo-up w/labs LVM Calibration Checker Required: No Accompanied by: Spouse Allergies No Known Allergies Allergy (Verified 04/29/25 09:22) Medication List - Last Reconciled 04/29/25 by Martín De Luna MD albuterol sulfate 90 mcg/actuation (ProAir HFA) 2 puffs inhalation Q6H PRN albuterol sulfate 90 mcg/actuation (ProAir RespiClick) 1 inh inhalation Q4-6H PRN aspirin 81 mg PO DAILY atorvastatin 80 mg PO DAILY carvedilol 12.5 mg PO BID cholecalciferol (vitamin D3) 50 mcg PO DAILY ferrous sulfate (FeroSul) 325 mg PO DAILY furosemide 80 mg PO DAILY hydralazine 75 mg (1.5 x 50 mg) PO TID insulin glargine (Lantus Solostar U-100 Insulin) 62 units subcut DAILY insulin lispro (Humalog KwikPen (U-100) Insulin) subcut metolazone 2.5 mg PO DAILY PRN nifedipine ER mg PO DAILY pantoprazole 40 mg PO DAILY potassium chloride ER 10 mEq PO DAILY HPI Comments Details: 73-year-old pleasant woman with a history of diabetes mellitus for more than 35 years who was at chronic kidney disease. She is history of congestive heart failure and was on Entresto Lasix and furosemide. Back in November of 2023 creatinine was 2.6 with EGFR of 19 mL/minute. She is currently in nifedipine 60mg daily, hydralazine 75mg TID, carvedilol 12.5mg BID and furosemide 40mg PO BID She continues to have back pain. She has chronic shortness of breath (reports since prior to heart surgery last year which she states did not really help her breathing much. States at rest is ok, with exertion continues to have some dyspnea chronically). No nausea, vomiting. She has leg edema. Wears compression stockings. No weight loss. All other systems were reviewed History of congestive heart failure with preserved ejection fraction. 09/10/24 reports shortness of breath for a while now reports a year ago had open heart surgery, reports before then had it but surgery didn't make it better and has continued blood pressure medications- reports has not taken yet this a.m. Reports SBP at home is usually in 130s. 10/15/2024. Milla was hospitalized about a week ago. She had acute kidney injury superimposed on CKD with fungemia. Serum creatinine peaked more than 4. Diuretics were held. Renal function gradually improved. She is currently not on diuretics creatinine is around 3. She has significant edema. No shortness of breath at present. Accompanied by her family member. She had recently undergone laparoscopic cholecystectomy for symptomatic cholelithiasis. During this hospitalization fasutina was negative. He has been catheter was inserted 1121. She is currently on Micafungin and Zosyn 12/03/24; BP was low ; [place] [facility] [place] : Cr 2.2 ;Nov 2024 Cr 2.2 with eGFR of 22 ml/mt 01/14/25: Recently in ER for a viral infection; Resolved 02/04/25 Leg edema increased;Received IV Lasix 03/04/25 ;Here for follow up;Seen last week by for worsening renal function ;Diuretics were decreased ;She feels better Edema has improved ;Cr is still up 04/01/25 74-year-old female presenting for the ongoing management of chronic kidney di sease. She reports an improvement in her kidney function, from 14% to 19%, over recent evaluations. There is ongoing management of her hypertension and diabetes, with noted dietary influences on her blood glucose control. During a recent vacation, she experienced fluctuations in her blood glucose levels due to less consistent insulin use. The patient reports continued management of edema in her lower extremities, utilizing diuretics and support stockings. Recent anemia was addressed with a corrective injection following a hemoglobin report at 9.0, with close monitoring planned. She describes an increased activity level during a vacation, which she believes positively impacted her overall condition. Her breathing remains stable, and she maintains a stable weight. 04/29/25: No new issues. Here for REtacrit. [facility] Medical History Chronic kidney disease Degenerative joint disease (DJD) of hip Cataract Bunion Fatty liver DJD (degenerative joint disease), lumbar DJD (degenerative joint disease), cervical Diabetes mellitus type 2 with neurological manifestations Vitamin D deficiency Urinary incontinence Allergic rhinitis GERD (gastroesophageal reflux disease) Depression Diabetic retinopathy Hypertension Hyperlipidemia Diabetic nephropathy Surgical History History of cholecystectomy (~09/2024) History of open heart surgery (~02/2023) History of adjustable gastric banding Social History Patient Tobacco Use Status: Never used Tobacco Physical Exam Vital Signs: Last Vital Signs Pulse 67 04/29/25 09:21 BP 156/62 H 04/29/25 09:21 Pulse Ox 98 04/29/25 09:21 Oxygen Delivery Method Room Air 04/29/25 09:21 Neck Neck: Yes supple Resp Auscultation: clear to auscultation bilaterally Cardio Palpation: no palpable S3 Heart sounds: no rubs GI Palpation (GI): Soft to palpation Auscultation: normal bowel sounds Neuro Motor exam (neuro): no asterixis Extrem General: Yes edema Results Reviewed Results Reviewed: 04/23/25 Cr 2.4 Hgb 8.3 Nephrology Results: Hgb 9.0 g/dl (12.0-16.0) L 03/31/25 WBC 5.9 X10*3/uL (4.8-10.8) 03/31/25 Plt Count 221 X10*3/uL (160-400) 03/31/25 Sodium 139 mmol/L (135-145) 03/31/25 Potassium 4.0 mmol/L (3.3-5.1) 03/31/25 Chloride 109 mmol/L (96-108) H 03/31/25 Carbon Dioxide 18 mmol/L (22-29) L 03/31/25 BUN 55 mg/dL (9-16) H 03/31/25 Creatinine 2.51 mg/dL (0.5-1.4) H 03/31/25 Calcium 8.7 mg/dL (8.4-10.2) 03/31/25 Phosphorus 4.6 mg/dL (2.7-4.5) H 02/24/25 PTH Intact 297.3 pg/mL (8.7-77.1) H 02/24/25 Assessment & Plan Assessment & Plan (1) Diabetes mellitus with chronic kidney disease: Code(s): E11.22 - Type 2 diabetes mellitus with diabetic chronic kidney disease Category: Medical Qualifiers: Chronic kidney disease stage: stage 4 (severe) Diabetes mellitus nutrition manager insulin use: with nutrition manager use Diabetes mellitus type: type 2 Qualified Code(s): E11.22 - Type 2 diabetes mellitus with diabetic chronic kidney disease; N18.4 - Chronic kidney disease, stage 4 (severe); Z79.4 - terminal operations supervisor (current) use of insulin (2) JERZY (acute kidney injury): Code(s): N17.9 - Acute kidney failure, unspecified Category: Medical (3) Hypertension: Code(s): I10 - Essential (primary) hypertension Category: Medical Qualifiers: Hypertension type: primary hypertension Qualified Code(s): I10 - Essential (primary) hypertension (4) Anemia in chronic kidney disease: Code(s): N18.9 - Chronic kidney disease, unspecified; D63.1 - Anemia in chronic kidney disease Category: Medical Qualifiers: Chronic kidney disease stage: stage 4 (GFR 15-29) Qualified Code(s): N18.4 - Chronic kidney disease, stage 4 (severe); D63.1 - Anemia in chronic kidney disease (5) Chronic kidney disease: Code(s): N18.9 - Chronic kidney disease, unspecified Category: Medical Qualifiers: Chronic kidney disease stage: stage 4 (severe) Qualified Code(s): N18.4 - Chronic kidney disease, stage 4 (severe) (6) CKD stage 4 due to type 2 diabetes mellitus: Code(s): E11.22 - Type 2 diabetes mellitus with diabetic chronic kidney disease; N18.4 - Chronic kidney disease, stage 4 (severe) Category: Medical Plan 74-year-old woman with a history of longstanding diabetes mellitus and coronary disease with stage IV CKD. CKD is most likely due to underlying diabetic kidney disease. Nondiabetic causes seem unlikely based on the clinical picture. Cr is better Down to 2.51 as of 03/31/25 ( drop in GFR was most likely from hypoperfusion) Keep on lower dose of diuretics for now and reassess Maintain A1c less than 7%. She is on adequate dose of diuretics at this time. She should stay on low-sodium diet which she is working on. She will benefit from SGLT2 inhibitors. Hypertension. 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 Iron stores are adequate. Administered Retacrit 89995 U administered subcutaneously today into right arm LOT [id number] Exp [id number] secondary hyperparathyroidism Mild elevation PTH. She will follow this and start her on vitamin D3 analog as needed. Discussed Dialysis options Has been referred for home dialysis evaluation Orders: Orders AMB Epoetin Injection Practice Supplied Today D63.1 - Anemia in chronic kidney disease, E11.22 - Type 2 diabetes mellitus with diabetic chronic kidney disease, N18.4 - Chronic kidney disease, stage 4 (severe) AMB Epoetin Injection Practice Supplied Today D63.1 - Anemia in chronic kidney disease, E11.22 - Type 2 diabetes mellitus with diabetic chronic kidney disease, N18.4 - Chronic kidney disease, stage 4 (severe) Medications: New epoetin disha-epbx 10,000 units (0.5 mL) subcut ONCE 2 mL 0RF anemia D63.1 - Anemia in chronic kidney disease, E11.22 - Type 2 diabetes mellitus with diabetic chronic kidney disease, N18.4 - Chronic kidney disease, stage 4 (severe) epoetin disha 10,000 units subcut ONCE 2 mL 0RF D63.1 - Anemia in chronic kidney disease, E11.22 - Type 2 diabetes mellitus with diabetic chronic kidney disease, N18.4 - Chronic kidney disease, stage 4 (severe) Coding Level of Care Code Est Pt Level 4 (97220) Diagnoses Type 2 diabetes mellitus with stage 4 chronic kidney disease, with long-term current use of insulin E11.; N18.4; Z79.4 Chronic kidney disease stage: stage 4 (severe) Diabetes mellitus nutrition manager insulin use: with nutrition manager use Diabetes mellitus type: type 2 JERZY (acute kidney injury) N17.9 Primary hypertension I10 Hypertension type: primary hypertension Anemia in stage 4 chronic kidney disease N18.4; D63.1 Chronic kidney disease stage: stage 4 (GFR 15-29) Stage 4 chronic kidney disease N18.4 Chronic kidney disease stage: stage 4 (severe) CKD stage 4 due to type 2 diabetes mellitus E11.22; N18.4
--- OUTSIDE RECORDS SUMMARY | 2025-04-29 09:58 | XMS_ITS ---
Author Name Sera Houser NP Address [address] [place] [address] Phone [phone] [facility] Care Team Providers Care Concert Or Lecture Hall Manager Name Role Phone Sera Houser Unavailable [phone] [facility] Unavailable Unavailable Unavailable [phone] Unavailable Unavailable Unavailable Unavailable Unavailable [phone] Unavailable Unavailable [phone] Unavailable Unavailable [phone] Unavailable Unavailable [phone] Unavailable Unavailable [phone] Unavailable Unavailable [phone] Unavailable Unavailable [phone] Unavailable Unavailable [phone] Unavailable Unavailable [phone] [employer] Unavailable [phone] [facility] Unavailable [phone] [place], Diana Unavailable [phone] CHELSIE MEYER Unavailable [phone] Reason for Referral Not Available Allergies, adverse [...] No Data Available B-D PEN NDL SHRT [id number](03/19 6) SHAW USE DIRECTED TO ADMINISTER INSULIN [...] List Problem Status Onset Date Resolved Date Synopsis COPD (chronic obstructive pulmonary disease) Active 2022-09-11 N/A advair and al buterol CHF (congestive heart failure) Active 2022-09-11 N/A hctz, spironolac tone, losartan,carvedillove harvey for patient to perform adlscardiologist Dr Meyer HTN (hypertension) Active 2022-09-11 N/A carved ilol, losartan, hctzamlodipine recently dceddr maryam cards following bp runs high Hyperlipemia Active 2022-09-11 N/A simvastatin Major depressive disorder Active 2022-09-11 N/A no meds currentlyphq 17 Arthritis Active 2022-09-11 N/A naproxen CKD (chronic kidney disease) stage 3, GFR 30-59 ml/min Active 2022-09-11 N/A limite d notes in outside care, pt reports recent labs to check kidneys but hasnt heard back re results Secondary hyperaldosteronism Active 2022-09-12 N/A heart failure and continues to take spironolactone 25mg daily and HCTZ 50mg daily. documentation under CHF (I50.9) notes member with love yang harder for member to perform adls Chronic pain Active 2022-09-22 N/A On Tylenol Type 2 diabetes mellitus with chronic kidney disease Active 2022-09-11 N/A a1c 8.6fs today 143, 88 this ludmila lantus , humalog ss, and victoza 01/02/23- Last a1c Oct 2022- 7.6 Cholecystitis Active 2023-01-02 N/A Pt will f/u with [facility] to schedule OP f/u for discussion of Cholecystectomy. Encounters Encounters Type Facility Date of Service Diagnosis/Co mplaint Medication List Documented (1159F) [facility] ([place]/2022 Medication List Documented (1159F) [facility]2022 Medication List Documented (1159F) [facility]2022 Medication List Documented (1159F) [facility]2022 Medication List Documented (1159F) [facility]2022 Medication List Documented (1159F) [facility] [place]/2022 Medication List Documented (1159F) [facility], ([place]) 09/11/2022 Medication List Documented (1159F) [facility]2022 Type 2 diabetes mellitus wit h diabetic chronic kidney diseaseChronic kidney disease, stage 3 unspecifiedChronic obstructive pulmonary disease, unspecifiedHyp hrt & chr kdny dis w hrt fail and stg 1-4/unsp chr kdnyHeart failure, unspecifiedHyperlipidemia, unspecifiedMajor depressive disorder, single episode, unspecifiedUnspecified osteoarthritis, unspecified site No Data Available [facility] [place]/2022 Unspecified osteoarthritis, unspecified siteOther chronic painHeart failure, unspecifiedChronic obstructive pulmonary disease, unspecified No Data Available [facility] [place] 10/18/2022 Unspecified osteoarthritis, unspecified siteOther chronic pain No Data Available [facility] [place] 01/02/2023 Cholecystitis, unspecified No Data Available [facility] [place] 01/02/2023 Vital Signs Date of Collection Vitals 2022-09-11 07:40:43 Height - 165.1 cmWei ght - 109.32 kgBody Mass Index (BMI) - 40.1 kg/m2BP Diastolic - 84.0 mm[Hg]BP Systolic - 170.0 mm[Hg]Heart Rate - 88.0 /min Social History Social History Social History Observation Description Effec tive Time Current Smoking Status Never smoker 2025-04-19 1 Sex Female History of Procedures Procedures Service [...] (do not use for phone, instead use [id number]) [id number] 2022-09-11 No Data Available No Data Availa ble No Data Available [id number] 2022-09-22 No Data Available No Data Available No Data Available [id number] 2022-10-18 No Data Available No Data Available No Data Available [id number] 2023-01-02 No Data Available No Data Available [...] E ducation to avoid future hospitalization: Call [facility] if symptoms of illness develop. Cholecystitis [K81.9] [...] or disease education needs that may arise 2022-10-18 12:43:59 Arthritis [M19.90]> naproxenChronic pain [G89.29]> On TylenolImpaired mobilityReferral for a POV- scooter to assist with ADLSTelevideo 20-29min; 1 stable chronic or 2 minor; add modifier 95Continue to see PCP. Follow-up with [facility] as needed for any acute or disease education needs that may arise 2023-01-02 09:19:59 Cholecystitis [K81.9 ]> Pt will f/u with [facility] to schedule OP f/u for discussion [...] hospital course: 12/20/22- 12/22/22Pt was seen at [facility] for chest and abdominal pain. She [...] BY MOUTH ONCE QHSB-D PEN NDL SHRT [id number](04/03) SHAW sig: USE DIRECTED TO ADMINISTER INSULIN [...]
== END 2025-04-29 09:40 | disposition home or self-care (01) ==
PROVIDERS: PCP Internal Medicine; Visit Provider Internal Medicine Hypertension Specialist
DX: E11.22 Type 2 diabetes mellitus with diabetic chronic kidney disease (principal); N18.4 Chronic kidney disease, stage 4 (severe); Z79.4 Long term (current) use of insulin; N17.9 Acute kidney failure, unspecified; I12.9 Hypertensive chronic kidney disease with stage 1 through stage 4 chronic kidney disease, or unspecified chronic kidney disease; D63.1 Anemia in chronic kidney disease
CPT/HCPCS: 99214

== ENCOUNTER → 2025-04-29 09:16 | Outpatient (BNVA) | payer OTHER, SELFPAY | PROVIDERS: PCP Internal Medicine; Visit Provider Internal Medicine Hypertension Specialist | DX: E11.22 Type 2 diabetes mellitus with diabetic chronic kidney disease (principal); I12.9 Hypertensive chronic kidney disease with stage 1 through stage 4 chronic kidney disease, or unspecified chronic kidney disease; D63.1 Anemia in chronic kidney disease; N18.4 Chronic kidney disease, stage 4 (severe); N25.81 Secondary hyperparathyroidism of renal origin; Z79.4 Long term (current) use of insulin | CPT/HCPCS: 96372; 99212; Q5106 ==

== ENCOUNTER 2025-05-20 08:50 | Outpatient (AMB) | payer OTHER, SELFPAY ==
--- OUTSIDE RECORDS SUMMARY | 2024-05-14 05:40 | XMS_ITS | Continuity of Care Document ---
Author Organization [facility] Address [address] [place] [address] [address] [place] [address] Phone Care Team Providers Care Barrel Handler Name Role Phone Elbert AVILES, JAMEEL, MIRZA, González Unavailable U navailable Procedures Procedure Date Office/Oupt E&M New Pt 45 Mins- CT & [place] Duplex Scan-extrem Veins; Comp- CT & [place] Advance Directives Directive Yes / No Effective Date File Name No Information Encounters Encounter Description Practice Location Reason(s) For Visit Diagnoses Date Provider Providers Copied on [facility]counter [facility], [address] [place] [address] Dr [address] [address], [id number], [place] tel:[phone] [facility] No Information 4 Elbert AVILES, JAMEEL, MIRZA Claudio. [address] [address], [place], [place], [id number] , [place]. tel:[phone] Office/Oupt E&M New Pt 45 Mins- CT & [place] [facility], [address] [place] [address] Dr [address] [address], [id number], [place] tel:[phone] [facility] Chronic venous hypertension (idiopathic) with other complications of bilateral lower extremityLymphe bredna, not elsewhere classifiedType 2 diabetes mellitus without complicationsRe stless legs syndromeEssenti al (primary) hypertensionCra mp and spasmLocalized edema 4 Elbert AVILES RVT, MIRZA Claudio. [address] [facility], [address], [place], [id number] , [place]. tel:[phone] Referring Provider: Diana Hamm, [address] [place] [address] [facility], [facility] [address], [place], [address]. tel:[phone] [facility], [address] [facility] [address], [place], [id number], tel:[phone] [facility] [place] Chronic venous hypertension (idiopathic) with other complications of bilateral lower extremity 4 Elbert AVILES RVT, MIRZA Claudio. [address] [facility], [address], [place], [id number] , [place]. tel:[phone] Referring Provider: Diana Hamm, [address] [place] [address] [facility], [facility] [address], [place], [address]. tel:[phone] Family History Family Member Type Diagnosis Age At Onset No Information Payers Payer name Insurance type Covered green party ID Krista fregoso(s) [facility] CI [id number] Social History Type Description Quantity Date Captured Comments Sex Female Smoking Status No Information Chief Complaint And Reason For Visit No Information Reason For Referral Reason For Referral No Information Plan Of Treatment Date Type Action Status Goal Diet education completed Referral Ordered: Weight management: Referral to physician timeframe: 3 Months (related to Body mass index (BMI) 34.0-34.9, adult) ordered History Of Present Illness Encounter Date Complaint History Of Prese nt Illness No Information Functional Status Date Functional Assessmen t No Information Instructions Date Instruction Additional Infor mation Diet education Related to Body mass index (BMI) 34.0-34.9, adult Giving Encouragement to exercise Related to Body mass index (BMI) 34.0-34.9, adult Lifestyle education Related to B brandy mass index (BMI) 34.0-34.9, adult Compression stocking usage as conservative measure Related to Chronic venous hypertension (idiopathic) with other complications of bilateral lower extremity Patient education booklet given Related to Chronic venous hypertension (idiopathic) with other complications of bilateral lower extremity Assessments Type Assessment Date No Information Patient Care Teams Name Effective Dates (start - stop) Status Members No Information
--- NOTE | 2025-05-20 08:50 | HO.NEPHOV ---
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 Package Yarns Required: No Accompanied by: Spouse Allergies No Known Allergies Allergy (Verified 05/20/25 08:54) Medication List - Last Reconciled 05/20/25 by Martín De Luna MD albuterol sulfate 90 mcg/actuation (ProAir HFA) 2 puffs inhalation Q6H PRN albuterol sulfate 90 mcg/actuation (ProAir RespiClick) 1 inh inhalation Q4-6H PRN aspirin 81 mg PO DAILY atorvastatin 80 mg PO DAILY carvedilol 12.5 mg PO BID cholecalciferol (vitamin D3) 50 mcg PO DAILY ferrous sulfate (FeroSul) 325 mg PO DAILY furosemide 80 mg PO DAILY hydralazine 75 mg (1.5 x 50 mg) PO TID insulin glargine (Lantus Solostar U-100 Insulin) 62 units subcut DAILY insulin lispro (Humalog KwikPen (U-100) Insulin) subcut metolazone 2.5 mg PO DAILY PRN nifedipine ER mg PO DAILY pantoprazole 40 mg PO DAILY potassium chloride ER 10 mEq PO DAILY HPI Comments Details: 73-year-old pleasant woman with a history of diabetes mellitus for more than 35 years who was at chronic kidney disease. She is history of congestive heart failure and was on Entresto Lasix and furosemide. Back in November of 2023 creatinine was 2.6 with EGFR of 19 mL/minute. She is currently in nifedipine 60mg daily, hydralazine 75mg TID, carvedilol 12.5mg BID and furosemide 40mg PO BID She continues to have back pain. She has chronic shortness of breath (reports since prior to heart surgery last year which she states did not really help her breathing much. States at rest is ok, with exertion continues to have some dyspnea chronically). No nausea, vomiting. She has leg edema. Wears compression stockings. No weight loss. All other systems were reviewed History of congestive heart failure with preserved ejection fraction. 09/10/24 reports shortness of breath for a while now reports a year ago had open heart surgery, reports before then had it but surgery didn't make it better and has continued blood pressure medications- reports has not taken yet this a.m. Reports SBP at home is usually in 130s. 10/15/2024. Milla was hospitalized about a week ago. She had acute kidney injury superimposed on CKD with fungemia. Serum creatinine peaked more than 4. Diuretics were held. Renal function gradually improved. She is currently not on diuretics creatinine is around 3. She has significant edema. No shortness of breath at present. Accompanied by her family member. She had recently undergone laparoscopic cholecystectomy for symptomatic cholelithiasis. During this hospitalization faustina was negative. He has been catheter was inserted 1121. She is currently on Micafungin and Zosyn 12/03/24; BP was low ; She was hospitalized @ [facility] [place]; Nov 2023 : Cr 2.2 ;Nov 2024 Cr 2.2 with eGFR of 22 ml/mt 01/14/25: Recently in ER for a viral infection; Resolved 02/04/25 Leg edema increased;Received IV Lasix 03/04/25 ;Here for follow up;Seen last week by for worsening renal function ;Diuretics were decreased ;She feels better Edema has improved ;Cr is still up 04/01/25 74-year-old female presenting for the ongoing management of chronic kidney disease. She reports an improvement in her kidney function, from 14% to 19%, over recent evaluations. There is ongoing management of her hypertension and diabetes, with noted dietary influences on her blood glucose control. During a recent vacation, she experienced fluctuations in her blood glucose levels due to less consistent insulin use. The patient reports continued management of edema in her lower extremities, utilizing diuretics and support stockings. Recent anemia was addressed with a corrective injection following a hemoglobin report at 9.0, with close monitoring planned. She describes an increased activity level during a vacation, which she believes positively impacted her overall condition. Her breathing remains stable, and she maintains a stable weight. 04/29/25: No new issues. Here for Retacrit. 05/20/25 Still with fatigue No dyspnea [facility] Medical History Chronic kidney disease Degenerative joint disease (DJD) of hip Cataract Bunion Fatty liver DJD (degenerative joint disease), lumbar DJD (degenerative joint disease), cervical Diabetes mellitus type 2 with neurological manifestations Vitamin D deficiency Urinary incontinence Allergic rhinitis GERD (gastroesophageal reflux disease) Depression Diabetic retinopathy Hypertension Hyperlipidemia Diabetic nephropathy Surgical History History of cholecystectomy (~09/2024) History of open heart surgery (~02/2023) History of adjustable gastric banding Social History Patient Tobacco Use Status: Never used Tobacco Physical Exam Vital Signs: Last Vital Signs Pulse 70 05/20/25 08:51 BP 124/52 L 05/20/25 08:51 Pulse Ox 98 05/20/25 08:51 Oxygen Delivery Method Room Air 05/20/25 08:51 Neck Neck: Yes supple Resp Auscultation: clear to auscultation bilaterally Cardio Palpation: no palpable S3 Heart sounds: no rubs GI Palpation (GI): Soft to palpation Auscultation: normal bowel sounds Neuro Motor exam (neuro): no asterixis Extrem General: Yes edema Office Meds epoetin disha-epbx 20,000 unit/mL injection solution Performing Provider: Martín De Luna MD Performing Location: [facility] [place] [facility] Administered by: Martín De Luna MD on 05/20/25 09:02 Dose Route Admin Location Dispensed Lot Number Expiration Date [facility] Route Driver [employer] 20,000 unit subcut right arm 1 mL [id number] 01/16/27 9100-0408-86 [employer] Total Dispensed Waste 1 mL 0 % Results Reviewed Nephrology Results: Hgb, (12.0-16.0) 9.0 g/dl L 03/31/25 WBC, (4.8-10.8) 5.9 X10*3/uL 03/31/25 Plt Count, (160-400) 221 X10*3/uL 03/31/25 Sodium, (135-145) 139 mmol/L 03/31/25 Potassium, (3.3-5.1) 4.0 mmol/L 03/31/25 Chloride, (96-108) 109 mmol/L H 03/31/25 Carbon Dioxide, (22-29) 18 mmol/L L 03/31/25 BUN, (9-16) 55 mg/dL H 03/31/25 Creatinine, (0.5-1.4) 2.51 mg/dL H 03/31/25 Calcium, (8.4-10.2) 8.7 mg/dL 03/31/25 Phosphorus, (2.7-4.5) 4.6 mg/dL H 02/24/25 PTH Intact, (8.7-77.1) 297.3 pg/mL H 02/24/25 Assessment & Plan Assessment & Plan (1) Diabetes mellitus with chronic kidney disease: Code(s): E11.22 - Type 2 diabetes mellitus with diabetic chronic kidney disease Category: Medical Qualifiers: Chronic kidney disease stage: stage 4 (severe) Diabetes mellitus extermination inspector insulin use: with extermination inspector use Diabetes mellitus type: type 2 Qualified Code(s): E11.22 - Type 2 diabetes mellitus with diabetic chronic kidney disease; N18.4 - Chronic kidney disease, stage 4 (severe); Z79.4 - USP (current) use of insulin (2) JERZY (acute kidney injury): Code(s): N17.9 - Acute kidney failure, unspecified Category: Medical (3) Hypertension: Code(s): I10 - Essential (primary) hypertension Category: Medical Qualifiers: Hypertension type: primary hypertension Qualified Code(s): I10 - Essential (primary) hypertension (4) Anemia in chronic kidney disease: Code(s): N18.9 - Chronic kidney disease, unspecified; D63.1 - Anemia in chronic kidney disease Category: Medical Qualifiers: Chronic kidney disease stage: stage 4 (GFR 15-29) Qualified Code(s): N18.4 - Chronic kidney disease, stage 4 (severe); D63.1 - Anemia in chronic kidney disease (5) Chronic kidney disease: Code(s): N18.9 - Chronic kidney disease, unspecified Category: Medical Qualifiers: Chronic kidney disease stage: stage 4 (severe) Qualified Code(s): N18.4 - Chronic kidney disease, stage 4 (severe) (6) CKD stage 4 due to type 2 diabetes mellitus: Code(s): E11.22 - Type 2 diabetes mellitus with diabetic chronic kidney disease; N18.4 - Chronic kidney disease, stage 4 (severe) Category: Medical Plan 74-year-old woman with a history of longstanding diabetes mellitus and coronary disease with stage IV CKD. CKD is most likely due to underlying diabetic kidney disease. Nondiabetic causes seem unlikely based on the clinical picture. Cr is better Down to 2.51 as of 03/31/25 ( drop in GFR was most likely from hypoperfusion) Keep on lower dose of diuretics for now and reassess Maintain A1c less than 7%. She is on adequate dose of diuretics at this time. She should stay on low-sodium diet which she is working on. She will benefit from SGLT2 inhibitors. Hypertension. 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 Iron stores are adequate. Administered Retacrit 44036 U administered subcutaneously today into right arm secondary hyperparathyroidism Mild elevation PTH. She will follow this and start her on vitamin D3 analog as needed. Discussed Dialysis options Has been referred for home dialysis evaluation She wants to think about it! Orders: Orders Basic Metabolic Panel 4 Weeks E11.22 - Type 2 diabetes mellitus with diabetic chronic kidney disease, N18.4 - Chronic kidney disease, stage 4 (severe), Z79.4 - extermination inspector (current) use of insulin Complete Blood Count no Diff 4 Weeks E11.22 - Type 2 diabetes mellitus with diabetic chronic kidney disease, N18.4 - Chronic kidney disease, stage 4 (severe), Z79.4 - USP (current) use of insulin IRON PROFILE Today N18.4 - Chronic kidney disease, stage 4 (severe) Complete Blood Count no Diff Today N18.4 - Chronic kidney disease, stage 4 (severe) AMB Epoetin Injection Practice Supplied Today N40.1 - Benign prostatic hyperplasia with lower urinary tract symptoms Ferritin Today N18.4 - Chronic kidney disease, stage 4 (severe) Coding Level of Care Code Est Pt Level 4 (77314) Diagnoses Type 2 diabetes mellitus with stage 4 chronic kidney disease, with long-term current use of insulin E11.22; N18.4; Z79.4 Chronic kidney disease stage: stage 4 (severe) Diabetes mellitus extermination inspector insulin use: with residential use Diabetes mellitus type: type 2 JERZY (acute kidney injury) N17.9 Primary hypertension I10 Hypertension type: primary hypertension Anemia in stage 4 chronic kidney disease N18.4; D63.1 Chronic kidney disease stage: stage 4 (GFR 15-29) Stage 4 chronic kidney disease N18.4 Chronic kidney disease stage: stage 4 (severe) CKD stage 4 due to type 2 diabetes mellitus E11.22; N18.4
[2025-05-20 08:51] VITALS: BP 124/52; PULSE 70; O2SAT 98
--- OUTSIDE RECORDS SUMMARY | 2025-05-20 08:55 | XMS_ITS | Continuity of Care Document ---
Author Organization [facility]. If a dditional information is needed, contact Health Information Management at [phone] Address [address] [place] [address] Phone Care Team Providers Care Geospatial Extractor Analysis Name Role Phone Unavailable Unavailable Unavailable Unavailable Unavailable Unavailable Unavailable Unavailable Unavailable Unavailable Unavailable Unavailable Problems Disorder of toe Onset:16-Mar-2024 Talah Ackerman APRN Chest pain Onset:11-Jan-2015 Allergies and Adverse Reactions No Known Drug Intolerances(A llergy) Onset: 11-Jan-2015 Reaction:UNKNOWN Social History Smoking Status Never smoked tobacco Recorded: 16-Mar-2024
--- OUTSIDE RECORDS SUMMARY | 2025-05-20 08:56 | XMS_ITS ---
Author Name Sera Houser NP Address [address] [place] [address] Phone [phone] [facility] Care Team Providers Care Clinical Assistant Name Role Phone Sera Houser Unavailable [phone] [facility] Unavailable Unavailable Unavailable [phone] Unavailable Unavailable Unavailable Unavailable Unavailable [phone] Unavailable Unavailable [phone] Unavailable Unavailable [phone] Unavailable Unavailable [phone] Unavailable Unavailable [phone] Unavailable Unavailable [phone] Unavailable Unavailable [phone] Unavailable Unavailable [phone] Unavailable Unavailable [phone] [employer] Unavailable [phone] medline Unavailable [phone] [place], Diana Unavailable [phone] CHELSIE MEYER Unavailable [phone] Reason for Referral Not Available Allergies, adverse [...] No Data Available B-D PEN NDL SHRT [id number](03/19 6) SHAW USE DIRECTED TO ADMINISTER INSULIN [...] Active 2023-01-02 N/A Pt will f/u with [facility] to schedule OP f/u for discussion of [...] Medication List Documented (1159F) [facility]20[place] Medication List Documented (1159F) [facility] [place]2022 Type 2 diabetes mellitus wit h diabetic chronic kidney diseaseChronic kidney disease, stage 3 unspecifiedChronic obstructive pulmonary disease, unspecifiedHyp hrt & chr kdny dis w hrt fail and stg 1-4/unsp chr kdnyHeart failure, unspecifiedHyperlipidemia, unspecifiedMajor depressive disorder, single episode, unspecifiedUnspecified osteoarthritis, unspecified site No Data Available [facility] [place] 09/22/2022 Unspecified osteoarthritis, unspecified siteOther chronic painHeart failure, unspecifiedChronic obstructive pulmonary disease, unspecified No Data Available [facility] [place] 10/18/2022 Unspecified osteoarthritis, unspecified siteOther chronic pain No Data Available [facility] [place] 01/02/2023 Cholecystitis, unspecified No Data Available [facility] [place] 01/02/2023 Vital Signs Date of Collection Vitals 2022-09-11 07:40:43 Height - 165.1 cmWei ght - 109.32 kgBody Mass Index (BMI) - 40.1 kg/m2BP Diastolic - 84.0 mm[Hg]BP Systolic - 170.0 mm[Hg]Heart Rate - 88.0 /min Social History Social History Social History Observation Description Effec tive Time Current Smoking Status Never smoker 2 Sex Female History of Procedures Procedures Service [...] (do not use for phone, instead use [id number]) 12341 2022-09-11 No Data Available No Data Availa ble No Data Available [id number] 2022-09-22 No Data Available No Data Available No Data Available [id number] 2022-10-18 No Data Available No Data Available No Data Available [id number] 2023-01-02 No Data Available No Data Available [...] Cholecystitis [K81.9 ]> Pt will f/u with [facility] to schedule OP f/u for discussion of [...] hospital course: 12/20/22- 12/22/22Pt was seen at [facility] for chest and abdominal pain. She [...] BY MOUTH ONCE QHSB-D PEN NDL SHRT [id number](04/03) SHAW sig: USE DIRECTED TO ADMINISTER INSULIN [...]
--- OUTSIDE RECORDS SUMMARY | 2025-05-20 08:57 | XMS_ITS | Data Portability ---
Author Organization [employer] [facility] Address [address] [place] [id number] Care Team Providers Care Floor Waxer Name Role Phone [facility] Primary Care Provider [phone] HIM [facility] OTHER Assessment Encounter Date Assessment Date Assessment LastModified by Organization Details LastModified Time 10/02/2024 10/02/2024 As noted, we ochoa e called to see this patient regarding concerns of shob and weakness. Evaluation in the field was performed by my chiller hand colleague, as noted above, I provided real-time [...] BMP, serum or plasma 2024 025 BALJIT Vann Yohan, [address] [place] [address], [id number] 21:34:24 Referral None recorded. Procedures None recorded. Surgeries None recorded. Imaging None recorded. Medication Orders furosemide 10 mg/mL injection solution 2024 025 [email or web address] Not available 18:30:31 Patient TargetsNo targets recorded. Patient InstructionsNo [...] Vitals Date Recorded Respiratory rate Heart rate Body height Body weight Body temperature Oxygen saturation Oxygen saturation in Arterial blood by Pulse oximetry Systolic blood pressure Diastolic blood pressure Provider Name and Address Organization Details Last Updated DateTime 5 17 /min 76 /min 167.64 cm 04294.2 4 g 98.3 [degF] 94 % 94 % 160 mm[Hg] 60 mm[Hg] Not Available [employer] 5 17:47:35 Date Recorded Respiratory rate Heart rate Oxygen saturation Oxygen saturation in Arterial blood by Pulse oximetry Systolic blood pressure Diastolic blood pressure Provider Name and Address Organization Details Last Updated DateTime 4 18 /min 83 /min 93 % 93 % 132 mm[Hg] 60 mm[Hg] Not Available [employer] 4 19:18:13 Social History None recorded. Functional Status None recorded. Mental Status None recorded. Family History Nothing Reported. Medical History No medical history recorded. Gynecological HistoryNo gynecological history recorded. Obstetrics History GPAL:G 0 P 0 0 0 0 Past Encounters Encounter ID Performer Location Encounter Start Date Encounter Closed Date Diagnosis/Indication Diagnosis SNOMED-CT Code Diagnosis ICD10 Code Diagnosis Note [id number] Brina Hurd MD [facility] [address] [place] [phone] 10/02/2024 19:18:11 10/02/2024 23:20:15 Postoperative visit 022030878 Z48.89 Dyspnea 048901491 R06.00 [id number] Jasmyn Wooten MD [facility] [address] [place] [id number] 02/02/2025 17:47:28 02/03/2025 19:30:55 Acute exacerbation of chronic congestive heart failure 625858274 I50.9 Health Concerns Section Related Observation LastModified by Organization Detai ls LastModified Time None Recorded Concern Status LastModified by Organization Details LastModified Time None Recorded Advance Directives Directive None Recorded Payers Insurance Date Sequence Insurance Name Policy Number Policy Braun Covered Member ID Braun Member ID Guarantor Name 02/02/2025 1 [facility] - DOS ON OR AFTER 2023 - DUAL ELIGIBLE - RETIREMENT OPTIONS AND ONE CARE (MEDICARE REPLACEMENT/ADV ANTAGE - HMO) Milla Guzman [id number] Milla Guzman Notes Date Note Type Note [...] 2, Cholecystectomy Comments: gallbladder removal on Sunday. [place] sob since d/c from hospital yesterday. 02 [...] ..................... ..................... ..................... ..................... ..................... ..................... ............... Depalletizer Operator Note From Tyler Milligan: [facility] dispatched [...] recently had her gallbladder removed at [facility] on 09/30, patient reports that the [...] Patient baseline vital signs obtained as noted. [facility] was consulted and advised that the patient should go to the hospital to R/O a pulmonary embolism. Patient agreed to go to the hospital and [facility] called 911 for patient. Patient report given to transporting ambulance without incident. ..................... ..................... ..................... ..................... ..................... ..................... ............... [facility] Consulted: Brina Hurd ..................... ..................... ..................... ..................... ..................... ..................... ............... Disposition: Fulfilled Brina Hurd MD [address] [facility],[address], [place], [phone], [employer] 10/02/2024 19:57:17 02/02/2025 text/html HPI: Pt c/o [...] flank pain- no urinary symptoms. Shaun RN Depalletizer Operator Organization Information for [employer] Business Legal Name: [employer]. Address: [address] [place] [id number], Parcel Contractor: Thomas Mccloud MD CLIA No.: [id number] Depalletizer Operator POC Test Results from [facility] iSTAT Chem8+ (18:05:40) Na: 137 mEq/L K: 4.0 mEq/L Cl: 106 mEq/L iCa: 1.09 mmol/L TCO2: 23 mmol/L Glu: 213 mg/dL BUN: 47 mg/dL Crea: 3.2 mg/dL Hct: 30 % Hb: 10.2 g/dL A mmol/L Attachments uploaded as part of this test result can be found under Documents section. ..................... ..................... ..................... ..................... ..................... ..................... ............... Depalletizer Operator Note From Clemente Koch: [facility] makes pt contact a 74 yo F CC of edema. [facility] obtains vital signs. PT explains she [...] but diminished sounds. PT confirms no allergies. [facility] contacts [facility] and explains above mentioned. [facility] orders labs to be done to se kidney function and electrolyte levels. Labs are obtained via 20G IV in the right ac first attempt. Istat is performed and uploaded to [facility]. After discussing labs with [facility], [facility] orders 40mg OF furosemide IV, which is [...] for additional lasix. PT understands. [facility] clear. [facility] Lab Orders: BMP, serum or plasma: Performed ..................... ..................... ..................... ..................... ..................... ..................... ............... [facility] Consulted: Jasmyn Wooten ..................... ..................... ..................... ..................... ..................... ..................... ............... Disposition: Fulfilled Jasmyn Wooten MD [address] [facility],[address], [place], [address], [employer] 02/03/2025 00:02:11 OBGyn Episode No OBEpisode recorded.
--- OUTSIDE RECORDS SUMMARY | 2025-05-20 08:57 | XMS_ITS | Clinical Summary ---
Author Organization [address] [facility] Address [address] [place] [address] Phone Care Team Providers Care Energy Specialist Name Role Phone Dionisio Romano MD Primary Care Provider [phone] Allergies No known active allergies Medications docusate [...] swelling 15 tablet 1 10/08/20 24 Active hydrALAZINE (APRESOLINE) 50 mg tablet Take 1 tablet (50 mg total) by mouth 3 (three) times a day. Active NIFEdipine XL (PROCARDIA XL) 30 mg 24 hr tabletIndicati ons:Coronary artery disease involving grand ronde tribes coronary artery of grand ronde tribes heart without angina pectoris Take 1 tablet [...] DAILY 90 capsule 1 12/22/19 25 Active NIFEdipine CC (ADALAT CC) 60 [...] day. 90 tablet 3 03/06/20 25 Active magnesium oxide 400 mg magnesium capsule Take 1 capsule by mouth at bedtime. 90 capsule 3 04/10/20 25 Active amoxicillin-cl avulanate (AUGMENTIN) 875-125 mg per tablet Take 1 tablet by mouth 2 (two) times a day. 10 tablet 04/10/20 25 Active potassium chloride (KLOR-CON M20) 20 mEq CR tablet Take 1 tablet (20 mEq total) by mouth 1 (one) time each day. Tablet may be swallowed whole (do not crush/chew/graham ck on) OR broken in half and each half swallowed separately OR dissolved (whole tablet) in ~4 ounces of water (allow ~2 minutes to dissolve, stir well and administer immediately). 90 each 3 04/26/20 25 Active atorvastatin (LIPITOR) 80 mg tablet TAKE 1 TABLET(80 MG) BY MOUTH 1 TIME EACH DAY 30 tablet 2 05/01/20 25 Active methenamine hippurate (HIPREX) 1 gram tablet TAKE 1 TABLET BY MOUTH TWICE DAILY 60 tablet 1 05/05/20 25 Active atorvastatin (LIPITOR) 80 mg tablet Take 1 tablet (80 mg total) by mouth 1 (one) time each day. 30 tablet 2 10/08/20 24 025 Discontinued methenamine hippurate (HIPREX) 1 gram tablet TAKE 1 TABLET BY MOUTH TWICE DAILY 60 tablet 1 02/27/20 25 025 Discontinued potassium chloride (Pokonza) 10 mEq packet Take 1 tablet by mouth 2 (two) times a day. 180 packet 1 04/10/20 25 025 Discontinued(Do se adjustment) Active Problems Problem Noted Date Diagnosed Date (HFpEF) heart failure with p reserved ejection fraction (CMS/HCC V24, CMS/HCC V28) 12/12/2024 Assessment & Plan (12/12/2024 10:28 [...] echocardiogram in September 2024 while hospitalized at [facility] which was reviewed. Abdominal pain 12/09/2024 Hypotension 12/09/2024 Atypical chest pain 12/19/2023 Assessment & Plan (01/12/2025 11:16 AM EST): Stress test reassuring without perfusion abnormalities chest discomfort perhaps musculoskeletal also probably was related to Novoa catheter. I reassured her. Assessment & Plan (12/12/2024 10:28 AM EST): See CAD plan. 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 ([facility] V24, [facility] V28) 02/13/2017 DJD (degenerative joint disease), cervical 02/13 DJD (degenerative joint disease), lumbar 017 Fatty liver 02/13/2017 GERD (gastroesophageal reflux disease) 7 Type 2 diabetes mellitus wit h cataract ([facility] V24, [facility] V28) 02/13/2017 Urinary incontinence 02/13/2017 [...] D deficiency 02/13/2017 Depression 02/08/2017 Diabetic neuropathy ([facility] V24, [facility] V28) 0 02/08/2017 Diabetic retinopathy ([facility] V24, [facility] V28) 02/08/2017 Hyperlipidemia 02/08/2017 Overview [...] Encounters Date Type Department Care Team Description 04/16/2025 Telephone Internal Medicine - [address] [phone] Adriana Delatorre MA prior auth 04/10/2025 11:30 AM EDT Office Visit Internal Medicine [address] [place] [phone] Dionisio Romano MD Stage 3b chronic kidney disease ([facility] V24, [facility] V28) (Primary Dx); Primary hypertension; Coronary artery disease involving grand ronde tribes coronary artery of grand ronde tribes heart without angina pectoris; Diabetes mellitus type 2 with neurological manifestations ([facility] V24, [facility] V28) 03/12/2025 Telephone Internal Medicine - [address] [place] [address] Dionisio Romano MD from Last 3 Months Immunizations Name Administration Dates Next Due Influenza trivalent, 0.5mL (Fluad) 65yo and olde r 08/18/2020,08/05/2020 Influenza trivalent, 0.5mL, preservative free (Fluarix; FluLaval; Fluzone) ages 6mo and older (Afluria) 3 years and older 09/24/2015 Mavatar SARS-CoV-2 COVID-19, mRNA, LNP-S, preservative free 09/06/2021,02/18/2021 [...] History Medical History Date Comments Diabetic neuropathy ([facility] V24, [facility] V28) 02/08/2017 DX:Diabetic neuropathy ([facility]) Hyperlipidemia 02/08/2017 DX:Hyperlipidemi a Hypertension 02/08/2017 DX:Hypertension Diabetic retinopathy ([facility] V24, [facility] V28) 02/08/2017 DX:Diabetic retinopathy (HCC ) Depression 02/08/2017 DX:Depression History of adjustable gastric banding 02/13/2017 DX:History of adjustable gastric banding Diabetes mellitus type 2 wit h neurological manifestations ([facility] V24, [facility] V28) 02/13/2017 DX:Diabetes mellitus type 2 with neurological manifestations (HCC) Type 2 diabetes mellitus wit h eye manifestations ([facility] V24, [facility] V28) 02/13/2017 DX:Type 2 diabetes mellitus with eye manifestations (HCC) Type 2 diabetes mellitus wit h cataract ([facility] V24, [facility] V28) 02/13/2017 DX:Type 2 diabetes mellitus with cataract ([facility]) Allergic rhinitis 02/13/2017 DX:Allergic rh [...] Insulin dependent type 2 destini betes mellitus ([facility] V24, [facility] V28) DX:Insulin depende nt type 2 diabetes mellitus (HCC) RUQ pain DX:RUQ pain Anemia Diabetes ([facility] V24, [facility] V28) Family History Medical History Relation Name [...] Sign Reading Time Taken Comments Blood Pressure 121/55 04/10/2025 11:17 AM EDT Pulse 64 04/10/2025 11:17 AM EDT Temperature 36.1 C (96.9 F) 04/10/2025 11:17 AM EDT Respiratory Rate - - Oxygen Saturation 99% 04/10/2025 11:17 AM EDT Inhaled Oxygen Concentration - - Weight 98.2 kg (216 lb 6.4 oz) 04/10/2025 11:17 AM EDT Height 167.6 cm (5' 6 ) 12/25/2024 8:12 AM EST Body Mass Index 34.93 12/25/2024 8:12 AM EST Plan of Treatment Upcoming Encounters Date Type Department Care Team (Late st Contact Info) Description 08/18/2025 9:45 AM EDT Office Visit Internal Medicine - [place] [address] [facility] [address] [place] [phone] Dionisio Romano MD [address] [facility] [address] [place] [phone] 10/01/2025 10:40 AM EST Office Visit [facility] [address] [place] [address] [place] [address] Pancho Montes De Oca NP [address] [place] [address] [address] [place] [address] Health Maintenance Due Date Last Done Comments Zoster Vaccines (2 of 2) 01/23/2020 020, 09/19/2013, 11/05/2012 Falls Risk Assessment 10/28/2022 Medicare Annual Wellness Visit 10/28/2022 Social Influencers of Health Screening 10/28/2022 Diabetes: Annual Urine Albumin-Creatinine Ratio (uACR) 06/21/2024 06/21/2023 Diabetes: Annual Foot Exam 10/09/2024 10/09/2023 Diabetes: Annual Retina Eye Exam 05/12/2025 05/12/2024 Diabetes: Blood Sugar Control Test (HGBA1C) 08/02/2025 01/30/2025, 06/01/2021 COVID-19 Vaccine (7 - Pfizer risk season) 2025 03/12/2025, 08/06/2023, 06/23/2022, Additional history exists Diabetes: Annual GFR (Glomerular Filtration Rate) 12/16/2025 12/16/2024, 03/05/2024 Hypertension/CHF/CAD Annual BMP Blood Test 12/16/2025 12/16/2024, 03/05/2024 Depression Screening 01/08/2026 01/08/2025 Breast Cancer Screening 11/13/2026 11/13/20, 05/07/2024, 11/05/2023, Additional history exists Cholesterol Screening (Lipid Panel) 09/08/2029 09/08/2024, 06/01/2021 Osteoporosis Screening (Bone Density Screening) 12/05/2032 12/05/2022, 01/28/2020 Colorectal Cancer Screening: Colonoscopy 04/16/2034 04/16/2024 DTaP,Tdap,and Td Vaccines (3 - Td or Tdap) 03/12/2035 03/12/2025, 06/21/2023 Pneumococcal Vaccine: 50+ Years Completed 02/05/2018, 01/02/2017 [...] Procedure Name Priority Date/Time Associated Diagnosis Comments EXTERNAL CLINICAL LAB 04/23/2025 EXTERNAL CLINICAL LAB 04/23/2025 BASIC METABOLIC PANEL Routine 12/16/2024 9:48 AM [...] Routine 06/21/2023 HEPATITIS C SCREENING Routine 02/27/2023 [facility] DEXA AXIAL SKELETON Routine 12/05/2022 5:38 PM EST Encounter for screening for osteoporosis HEMOGLOBIN A1C Routine 06/01/2021 LIPID PANEL Routine 06/01/2021 from Last 3 Months or Most Recently Relevant to Health Maintenance Results * External clinical lab (04/23/2025) Only the most recent of2 resultswithin the time period is included. us Provider [facility] LAB BLOOD ORDERABLES Fin al Result * (ABNORMAL) Basic metabolic panel (12/16/2024 9:48 AM EST) Sodium 137 133 - 145 mmol/L LAB CHEMISTRY METHOD 12/16/2024 2:56 PM [facility] Potassium 4.1 3.5 - 5.5 mmol/L LAB CHEMISTRY METHOD 12/16/2024 2:56 PM [facility] Chloride 104 96 - 110 mmol/L LAB CHEMISTRY METHOD 12/16/2024 2:56 PM [facility] CO2 29 21 - 32 mmol/L LAB CHEMISTRY METHOD 12/16/2024 2:56 PM [facility] Anion Gap 4 3 - 11 LAB CHEMISTRY METHOD 12/16/2024 2:56 PM [facility] Glucose 223(H) 70 - 100 mg/dL LAB CHEMISTRY METHOD 12/16/2024 2:56 PM [facility] BUN 36(H) 5 - 25 mg/dL LAB CHEMISTRY METHOD 12/16/2024 2:56 PM [facility] Creatinine 2.33(H) 0.50 - 1.10 mg/dL LAB CHEMISTRY METHOD 12/16/2024 2:56 PM [facility] eGFR 22(L) >=60 mL/min/1. 73m2 LAB CHEMISTRY METHOD 12/16/2024 2:56 PM [facility] Comment:Calculation based on the Chronic Kidney Disease Epidemiology Collaboration (CKD-EPI) equation refit without adjustment for race. BUN/Creatinine Ratio 15.5 LAB CHEMISTRY METHOD 12/16/2024 2:56 PM [facility] Calcium 9.2 8.5 - 10.5 mg/dL LAB CHEMISTRY METHOD 12/16/2024 2:56 PM [facility] Blood Venous blood specimen / Unknown Venipuncture / Unknown 12/16/2024 9:48 AM EST 12/16/2024 9:48 AM EST us Dionisio Romano MD LAB BLOOD ORDERABLES Final Res ult [facility] [address] [place] [address], * MG Mammo Digital Diagnostic w Isaac bilat (11/13/2024 8:23 AM EST) Anatomical Region Laterality Modality Breast Bilateral Mammography 11/13/2024 8:11 AM EST Impressions 11/13/2024 8:21 AM EST Benign. BI-RADS CATEGORY: 2 - BENIGN RECOMMENDATION: Screening bilateral mammogram is recommended in 1 year. Mammo Location: [facility], [address] [place] [id number] -------- FINAL REPORT -------- Dictated By: Daniel Gregory Dictated Date: 11/13/2024 08:11 ET Assigned Physician: Daniel Gregory Reviewed and Electronically Signed By: Daniel Gregory Signed Date: 11/13/2024 08:21 ET Workstation ID: [id number] Transcribed By: Self Edit Transcribed Date: 11/13/2024 [...] and CC projection is performed in the Grovace 2000-D unit. Computer aided detection utilizing the iCAD system was utilized. FINDINGS: The breasts are again seen to be composed of a combination of fatty and fibroglandular elements. The previously seen asymmetry in the upper inner quadrant of the right breast have completely resolved. Scattered bilateral punctate calcifications are without suspicious interval [...] 2000-D unit. Computer aided detection utilizing the GreenWattDsystem was utilized. FINDINGS: The breasts are again [...] is recommended in 1 year. Mammo Location: [facility], [address] [place] [id number] -------- FINAL REPORT -------- Dictated By: Daniel Gregory Dictated Date: 11/13/2024 08:11 ET Assigned Physician: Daniel Gregory Reviewed and Electronically Signed By: Daniel Gregory Signed Date: 11/13/2024 08:21 ET Workstation ID: [id number] Transcribed By: Self Edit Transcribed Date: 11/13/2024 08:11 ET Result [facility] Dionisio Romano MD IM BI PROCEDURES Final Result * Diabetes Eye Exam (05/12/2024) [facility] Diabetes: Annual Retina Eye Exam abstracted Result [facility] Provider HEALTH MAINTENANCE Final Result * Colonoscopy (04/16/2024) [facility] Colonoscopy no interpretation , abstracted Anatomical Region Laterality Modality Other Result [facility] Provider HEALTH MAINTENANCE Final Result * Diabetes Foot Exam (10/09/2023) [facility] Diabetes: Annual Foot Exam abstracted Result [facility] Provider HEALTH MAINTENANCE Final Result * Urine Albumin Creatinine Ratio (06/21/2023) [facility] Urine Albumin Creatinine Ratio abstracted us Historical Provider HEALTH MAINTENANCE Final Result * Hepatitis C Screening (02/27/2023) Hepatitis C Screening abstracted us Historical Provider HEALTH MAINTENANCE Final Result * [facility] DEXA AXIAL SKELETON (12/05/2022 5:38 PM EST) Anatomical Region Laterality Modality Mammography 12/05/2022 11:1 5 AM EST Narrative 12/05/2022 5:38 PM EST [facility] Diagnostic Imaging Department [address] [place] [address] Patient: TALIA WATTSO.B./Age/Sex: 1950 - 71 - F Unit#: [id number] Location/Status: SPDIMAM/REG CLI Mnemonic/Ordering Site: MAMDEXAAX/SPMAM Ordering Physician: DIONISIO ROMANO MD [facility] Dexa Axial Skeleton - 12/05/22 - History: Low estrogen state due to menopause. On omeprazole. Comparison: 08/10/14 Findings: Bone densitometry is performed utilizing dual energy x-ray absorptiometry (DXA) in the [employer]omi[employer] unit. The lumbar spine and proximal femora [...] in the spine since the previous study. The detailed DEXA report will be mailed to the referring physician's office. DualFemur FRAX: 10-year Probability of Fracture: Major Osteoporotic 2.5 percent Hip 0.1 percent. IMPRESSION: Normal bone mineral density. [id number] Dictating Physician: LATRICE SIMS MD Electronically Signed by: LATRICE SIMS MD Dic Date/Time: 12/05/221736 Sign date/Time: 12/05/221737 Procedure Note Latrice Sims MD - 12/21/2023 [facility] Diagnostic Imaging Department [address] [place] [address] Patient: TAILA WATTS /Age/Sex: 1950 - 71 - F Unit#: [id number] Location/Status: SPDIMAM/REG CLI Mnemonic/Ordering Site: [facility] Ordering Physician: DIONISIO ROMANO MD [facility] Dexa Axial Skeleton - 12/05/22 - History: Low estrogen state due to menopause. On omeprazole. Comparison: 08/10/14 Findings: Bone densitometry is performed utilizing dual energy x-ray absorptiometry(DXA) in the [employer] unit. The lumbar spine and proximal femora [...] 0.1 percent. IMPRESSION: Normal bone mineral density. [id number] Dictating Physician: LATRICE SIMS MD Electronically Signed by: LATRICE SIMS MD Dic Date/Time: 12/05/221736 Sign date/Time: 12/05/221737 Dionisio Romano MD IMG BI PROCEDURES Final Result * (ABNORMAL) Hemoglobin A1c (06/01/2021) Pathologist [facility] Hemoglobin A1C 9.1(A) <=6.5 % Blood Venous blood specimen / Unknown Result [facility] Historical Provider LAB BLOOD ORDERABLES Adilia l Result * Lipid panel (06/01/2021) LDL/HDL Ratio 3 0 - 4 Triglycerides 125 0 - 150 mg/dL Cholesterol 142 0 - 200 mg/dL HDL 57 >=40 mg/dL LDL Cholesterol 60 0 - 100 mg/dL Blood Venous blood specimen / Unknown Result [facility] Historical Provider LAB BLOOD ORDERABLES Adilia l Result from Last 3 Months or Most Recently Relevant to Health Maintenance Insurance [facility] MEDICARE Member Subscriber Plan / Payer (Ef fective 2023-Present) Name:Talia Watts Relation to Subscriber:Self Name:Talia Watts Payer ID:[id number] Group ID:[id number] Type:Not on file Address: [place] [address] [address] [id number] Care Teams Energy Specialist Relationship Specialty Start Date End Date Dionisio Romano MD [address] [place] [phone] PCP - General Internal Medicine 02/25/13
== END 2025-05-20 09:12 | disposition home or self-care (01) ==
PROVIDERS: PCP Internal Medicine; Visit Provider Internal Medicine Hypertension Specialist
DX: E11.22 Type 2 diabetes mellitus with diabetic chronic kidney disease (principal); N18.4 Chronic kidney disease, stage 4 (severe); Z79.4 Long term (current) use of insulin; N17.9 Acute kidney failure, unspecified; I12.9 Hypertensive chronic kidney disease with stage 1 through stage 4 chronic kidney disease, or unspecified chronic kidney disease; D63.1 Anemia in chronic kidney disease; N40.1 Benign prostatic hyperplasia with lower urinary tract symptoms
CPT/HCPCS: 99214

== ENCOUNTER → 2025-05-20 08:50 | Outpatient (BNVA) | payer OTHER, SELFPAY | PROVIDERS: PCP Internal Medicine; Visit Provider Internal Medicine Hypertension Specialist | DX: E11.22 Type 2 diabetes mellitus with diabetic chronic kidney disease (principal); N18.4 Chronic kidney disease, stage 4 (severe); N17.9 Acute kidney failure, unspecified; I10 Essential (primary) hypertension; D63.1 Anemia in chronic kidney disease | CPT/HCPCS: 96372; 99212; Q5106 ==

== ENCOUNTER 2025-06-16 09:30 | Outpatient (REF) | payer OTHER, SELFPAY ==
--- OUTSIDE RECORDS SUMMARY | 2025-06-16 10:03 | XMS_ITS ---
Author Name Sera Houser NP Address [address] [place] [address] Phone [phone] [facility] Care Team Providers Care Personnel Security Assistant Name Role Phone Sera Houser Unavailable [phone] [facility] Unavailable [phone] Unavailable Unavailable [phone] Unavailable Unavailable Unavailable Unavailable Unavailable [phone] Unavailable Unavailable [phone] Unavailable Unavailable [phone] Unavailable Unavailable [phone] Unavailable Unavailable [phone] Unavailable Unavailable [phone] Unavailable Unavailable [phone] Unavailable Unavailable [phone] Unavailable Unavailable [phone] [employer] Unavailable [phone] [employer] Unavailable [phone] [place], Diana Unavailable [phone] CHELSIE MEYER Unavailable [phone] Reason for Referral Not Available Allergies, adverse [...] No Data Available B-D PEN NDL SHRT [id number](03/19 6) [facility] USE DIRECTED TO ADMINISTER INSULIN [...] Active 2023-01-02 N/A Pt will f/u with [facility] to schedule OP f/u for discussion of Cholecystectomy. Encounters Encounters Type Facility Date of Service Diagnosis/Co mplaint Medication List Documented (1159F) [facility]/20[place] Medication List Documented (1159F) [facility] Medication List Documented (1159F) [facility] Medication List Documented (1159F) [facility] Medication List Documented (1159F) [facility] Medication List Documented (1159F) [facility] Medication List Documented (1159F) [facility]/20[place] Medication List Documented (1159F) [facility]2022 Type 2 diabetes mellitus wit h diabetic chronic kidney diseaseChronic kidney disease, stage 3 unspecifiedChronic obstructive pulmonary disease, unspecifiedHyp hrt & chr kdny dis w hrt fail and stg 1-4/unsp chr kdnyHeart failure, unspecifiedHyperlipidemia, unspecifiedMajor depressive disorder, single episode, unspecifiedUnspecified osteoarthritis, unspecified site No Data Available [facility] [place] 09/[place]/2022 Unspecified osteoarthritis, unspecified siteOther chronic painHeart failure, unspecifiedChronic obstructive pulmonary disease, unspecified No Data Available [facility] 10/18/2022 Unspecified osteoarthritis, unspecified siteOther chronic pain No Data Available [facility] 01/02/2023 Cholecystitis, unspecified No Data Available [facility] 01/02/2023 Vital Signs Date of Collection Vitals 2022-09-11 07:40:43 Height - 165.1 cmWei ght - 109.32 kgBody Mass Index (BMI) - 40.1 kg/m2BP Diastolic - 84.0 mm[Hg]BP Systolic - 170.0 mm[Hg]Heart Rate - 88.0 /min Social History Social History Social History Observation Description Effec tive Time Current Smoking Status Never smoker 2025-05-20 10 Sex Female History of Procedures Procedures Service [...] (do not use for phone, instead use [id number]) [id number] 2022-09-11 No Data Available No Data Availa ble No Data Available [id number] 2022-09-22 No Data Available No Data Available No Data Available [id number] 2022-10-18 No Data Available No Data Available No Data Available [id number] 2023-01-02 No Data Available No Data Available [...] Cholecystitis [K81.9 ]> Pt will f/u with [facility] to schedule OP f/u for discussion [...] hospital course: 12/20/22- 12/22/22Pt was seen at [facility] for chest and abdominal pain. She [...] BY MOUTH ONCE QHSB-D PEN NDL SHRT [id number](04/03) [facility] sig: USE DIRECTED TO ADMINISTER INSULIN [...]
--- OUTSIDE RECORDS SUMMARY | 2025-06-16 10:04 | XMS_ITS | Data Portability ---
Author Organization [email or web address] [facility], [facility] Address [address] [place] [phone] Care Team Providers Care Specialist Wound Care Name Role Phone [facility] Primary Care Provider HIM CCA OTHER Assessment Encounter Date Assessment Date Assessment LastModified by Organization Details LastModified Time 10/02/2024 10/02/2024 As noted, we ochoa e called to see this patient regarding concerns of shob and weakness. Evaluation in the field was performed by my senior power plant operator colleague, as noted above, I provided real-time [...] or plasma 2024 025 BALJIT Vann Yohan, [address] [place] [address], [phone] 21:34:24 Referral None recorded. Procedures None recorded. [...] in Arterial blood by Pulse oximetry Systolic And Diastolic Provider Name and Address Organization Details Last Updated DateTime 5 17 /min 76 /min 167.64 cm 16163.2 4 g 98.3 [degF] 94 % 94 % 160/60 mm[Hg] Not Available [employer] - [employer] 5 17:47:35 Date Recorded Respiratory rate Heart rate Oxygen saturation Oxygen saturation in Arterial blood by Pulse oximetry Systolic And Diastolic Provider Name and Address Organization Details Last Updated DateTime 4 18 /min 83 /min 93 % 93 % 132/60 mm[Hg] Not Available [employer] [employer] 19:18:13 Social History None recorded. Functional Status None recorded. Mental Status None recorded. Family History Nothing Reported. Medical History No medical history recorded. Gynecological HistoryNo gynecological history recorded. Obstetrics History GPAL:G 0 P 0 0 0 0 Past Encounters Encounter ID Performer Location Encounter Start Date Encounter Closed Date Diagnosis/Indication Diagnosis SNOMED-CT Code Diagnosis ICD10 Code Diagnosis Note [id number] Brina Hurd MD [facility] [address] [place] [phone] 10/02/2024 19:18:11 10/02/2024 23:20:15 Postoperative visit 420509588 Z48.89 Dyspnea 221644921 R06.00 [id number] Jasmyn Wooten MD [facility] - [facility] [address] [place] [phone] 02/02/2025 17:47:28 02/03/2025 19:30:55 Acute exacerbation of chronic congestive heart failure 610842532 I50.9 Health Concerns Section Related Observation LastModified by Organization Detai ls LastModified Time None Recorded Concern Status LastModified by Organization Details LastModified Time None Recorded Advance Directives Directive None Recorded Payers Insurance Date Sequence Insurance Name Policy Number Policy Braun Covered Member ID Braun Member ID Guarantor Name 02/02/2025 1 [facility] - DOS ON OR AFTER 2023 - DUAL ELIGIBLE - RETIREMENT OPTIONS AND ONE CARE (MEDICARE REPLACEMENT/ADV ANTAGE - HMO) Milla Guzman [id number] Milla Guzman OBGyn Episode No OBEpisode recorded.
--- OUTSIDE RECORDS SUMMARY | 2025-06-16 10:04 | XMS_ITS | Clinical Summary ---
Author Organization [address] [facility] Address [address] [place] [address] Phone Care Team Providers Care Framing Inspector Name Role Phone Dionisio Romano MD Primary Care Provider [phone] Allergies No known active allergies Medications docusate sodium (COLACE) 100 mg capsule Take 1 Capsule by mouth 2 times daily for 360 days. 4 08/06/20 25 Active aspirin 81 mg EC tablet Take [...] for swelling 15 tablet 1 4 Active hydrALAZINE (APRESOLINE) 50 mg tablet Take 1 tablet (50 mg total) by mouth 3 (three) times a day. Active NIFEdipine XL (PROCARDIA XL) 30 mg 24 hr tabletIndicati ons:Coronary artery disease involving kobuk coronary artery of kobuk heart without angina pectoris Take 1 tablet (30 mg total) by mouth 1 (one) time each day before breakfast. Do not crush, chew, or split. 90 each 2 5 Active carvediloL (COREG) 12.5 mg tablet Take 1 tablet (12.5 mg total) by mouth 2 (two) times a day with meals. 180 tablet 3 5 Active NIFEdipine CC (ADALAT CC) 60 mg 24 hr tablet TAKE 1 TABLET BY MOUTH DAILY 90 tablet 1 5 Active pantoprazole (PROTONIX) 40 mg EC tablet TAKE 1 TABLET BY MOUTH DAILY 90 tablet 1 5 Active furosemide (LASIX) 40 mg tablet Take 2 tablets (80 mg total) by mouth 1 (one) time each day. 90 tablet 3 5 Active magnesium oxide 400 mg magnesium capsule Take 1 capsule by mouth at bedtime. 90 capsule 3 5 Active amoxicillin-cl avulanate (AUGMENTIN) 875-125 mg per tablet Take 1 tablet by mouth 2 (two) times a day. 10 tablet 5 Active potassium chloride (KLOR-CON M20) 20 mEq CR tablet Take 1 tablet (20 mEq total) by mouth 1 (one) time each day. Tablet may be swallowed whole (do not crush/chew/suc k on) OR broken in half and each half swallowed separately OR dissolved (whole tablet) in ~4 ounces of water (allow ~2 minutes to dissolve, stir well and administer immediately). 90 each 3 5 Active atorvastatin (LIPITOR) 80 mg tablet TAKE 1 TABLET(80 MG) BY MOUTH 1 TIME EACH DAY 30 tablet 2 5 Active methenamine hippurate (HIPREX) 1 gram tablet TAKE 1 TABLET BY MOUTH TWICE DAILY 60 tablet 1 5 Active cholecalcifero l (VITAMIN D-3) 50 mcg (2,000 unit) capsule Take 1 capsule (2,000 Units total) by mouth 1 (one) time each day. 90 capsule 1 5 Active cholecalcifero l (VITAMIN D-3) 50 mcg (2,000 unit) capsule TAKE 1 CAPSULE BY MOUTH DAILY 90 capsule 1 5 06/02/20 25 Discontinu ed(Reorder ) Active Problems Problem Noted Date Diagnosed Date [...] echocardiogram in September 2024 while hospitalized at [facility] which was reviewed. 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 ([facility] V24, [facility] V28) 02/13/2017 DJD (degenerative joint disease), cervical 02/13 DJD (degenerative joint disease), lumbar 017 Fatty liver 02/13/2017 GERD (gastroesophageal reflux disease) 7 Type 2 diabetes mellitus wit h cataract ([facility] V24, [facility] V28) 02/13/2017 Urinary incontinence 02/13/2017 Venous insufficiency [...] D deficiency 02/13/2017 Depression 02/08/2017 Diabetic neuropathy ([facility] V24, [facility] V28) 0 02/08/2017 Diabetic retinopathy ([facility] V24, [facility] V28) 02/08/2017 Hyperlipidemia 02/08/2017 Overview (09/04/2024): Last [...] Encounters Date Type Department Care Team Description 05/29/2025 Telephone [facility] [address] [place] [phone] Michael Torrez MD Referral (Cardiac Rehab) 04/16/2025 Telephone Internal Medicine [facility] [address] [place] [address] Adriana Delatorre MA prior auth 04/10/2025 11:30 AM EDT Office Visit Internal [facility] [address] [place] [address] Dionisio Romano MD Stage 3b chronic kidney disease (CMS/HCC V24, [facility] V28) (Primary Dx); Primary hypertension; Coronary artery disease involving kobuk coronary artery of kobuk heart without angina pectoris; Diabetes mellitus type 2 with neurological manifestations ([facility] V24, [facility] V28) from Last 3 Months Immunizations Name Administration [...] PROCEDURE: HISTORICAL ROTATOR CUFF REPAIR APPENDECTOMY PROCEDURE: NE APPENDECTOMY CATARACT EXTRACTION PROCEDURE: HISTORICAL CATARACT REMOVAL OTHER SURGICAL HISTORY PROCEDURE: ---- OTHER ----; COMMENT: venous ligation LAPAROSCOPIC GASTRIC BANDING PROCEDURE: LAP ADJUSTABLE GASTRIC BAND CORONARY ARTERY BYPASS GRAFT Medical History Medical History Date Comments Diabetic neuropathy ([facility] V24, [facility] V28) 02/08/2017 DX:Diabetic neuropathy ([facility]) Hyperlipidemia 02/08/2017 DX:Hyperlipidemi a Hypertension 02/08/2017 DX:Hypertension Diabetic retinopathy ([facility]/ C V24, [facility] V28) 02/08/2017 DX:Diabetic retinopathy ([facility] ) Depression 02/08/2017 DX:Depression History of adjustable gastric banding 02/13/2017 DX:History of adjustable gastric banding Diabetes mellitus type 2 wit h neurological manifestations ([facility] V24, [facility] V28) 02/13/2017 DX:Diabetes mellitus type 2 with neurological manifestations ([facility]) Type 2 diabetes mellitus wit h eye manifestations ([facility] V24, [facility] V28) 02/13/2017 DX:Type 2 diabetes mellitus with eye manifestations ([facility]) Type 2 diabetes mellitus wit h cataract ([facility] V24, [facility] V28) 02/13/2017 DX:Type 2 diabetes mellitus with cataract ([facility]) Allergic rhinitis 02/13/2017 DX:Allergic rh initis GERD [...] Insulin dependent type 2 destini betes mellitus ([facility] V24, [facility] V28) DX:Insulin depende nt type 2 diabetes mellitus ([facility]) RUQ pain DX:RUQ pain Anemia Diabetes ([facility] V24, [facility] V28) Family History Medical History Relation [...] AM EDT Office Visit Internal Medicine - [place] [address] [place] [phone] Dionisio Romano MD [address] [facility] [address] [place] [phone] 10/01/2025 10:40 AM EST Office Visit [facility] - [facility] [address] [place] [phone] Pancho Montes De Oca NP [address] [place] [address] [address] [place] [address] Health Maintenance Due Date Last Done Comments Zoster Vaccines (2 of 2) 01/23/2020 020, 09/19/2013, 11/05/2012 Falls Risk Assessment 10/28/2022 Medicare Annual Wellness Visit 10/28/2022 Social Influencers of Health Screening 10/28/2022 Diabetes: Annual Urine Albumin-Creatinine Ratio (uACR) 06/21/2024 06/21/2023 Diabetes: Annual Foot Exam 10/09/2024 10/09/2023 Diabetes: Annual Retina Eye Exam 05/12/2025 05/12/2024 Influenza Vaccine (#1) 2025 4, 08/06/2023, 06/23/2022, Additional history exists Diabetes: Blood Sugar Control Test (HGBA1C) 08/02/2025 01/30/2025, 06/01/2021 COVID-19 Vaccine (7 - Pfizer risk season) 2025 03/12/2025, 08/06/2023, 06/23/2022, Additional history exists Diabetes: Annual GFR (Glomerular Filtration Rate) 12/16/2025 12/16/2024, 03/05/2024 Hypertension/CHF/CAD Annual BMP Blood Test 12/16/2025 12/16/2024, 03/05/2024 Breast Cancer Screening 11/13/2026 11/13/20, 05/07/2024, 11/05/2023, Additional history exists Cholesterol Screening (Lipid Panel) 09/08/2029 09/08/2024, 06/01/2021 Osteoporosis Screening (Bone Density Screening) 12/05/2032 12/05/2022, 01/28/2020 Colorectal Cancer Screening: Colonoscopy 04/16/2034 04/16/2024 DTaP,Tdap,and Td Vaccines (3 - Td or Tdap) 03/12/2035 03/12/2025, 06/21/2023 Pneumococcal Vaccine: 50+ Years Completed 02/05/2018, 01/02/2017 Hepatitis C Screening Completed 02/27/2023 RSV Immunization Adult Patients Completed 06/30/2024 Depression Screening Completed 01/08/2025 HIB Vaccines Aged Out No longer eligi [...] 06/21/2023 HEPATITIS C SCREENING Routine 02/27/2023 [facility] DEXA AXIAL SKELETON Routine 12/05/2022 [...] LAB CHEMISTRY METHOD 12/16/2024 2:56 PM EST [facility] Potassium 4.1 3.5 - 5.5 mmol/L LAB CHEMISTRY METHOD 12/16/2024 2:56 PM EST [facility] Chloride 104 96 - 110 mmol/L LAB CHEMISTRY METHOD 12/16/2024 2:56 PM EST [facility] CO2 29 21 - 32 mmol/L LAB CHEMISTRY METHOD 12/16/2024 2:56 PM [facility] Anion Gap 4 3 - 11 LAB CHEMISTRY METHOD 12/16/2024 2:56 PM [facility] Glucose 223(H) 70 - 100 mg/dL LAB CHEMISTRY METHOD 12/16/2024 2:56 PM [facility] BUN 36(H) 5 - 25 mg/dL LAB CHEMISTRY METHOD 12/16/2024 2:56 PM [facility] Creatinine 2.33(H) 0.50 - 1.10 mg/dL LAB CHEMISTRY METHOD 12/16/2024 2:56 PM [facility] eGFR 22(L) >=60 mL/min/1. 73m2 LAB CHEMISTRY METHOD 12/16/2024 2:56 PM EST [facility] Comment:Calculation based on the Chronic Kidney Disease Epidemiology Collaboration (CKD-EPI) equation refit without adjustment for race. BUN/Creatinine Ratio 15.5 LAB CHEMISTRY METHOD 12/16/2024 2:56 PM [facility] Calcium 9.2 8.5 - 10.5 mg/dL LAB CHEMISTRY METHOD 12/16/2024 2:56 PM [facility] Blood Venous blood specimen / Unknown Venipuncture / Unknown 12/16/2024 9:48 AM EST 12/16/2024 9:48 AM EST us Dionisio Romano MD LAB BLOOD ORDERABLES Final Res ult [facility] [address] [place] [address], [place] [phone] * MG Mammo Digital Diagnostic w Isaac bilat (11/13/2024 8:23 AM EST) Anatomical Region Laterality Modality Breast Bilateral Mammography 11/13/2024 8:11 AM EST Impressions 11/13/2024 8:21 AM EST Benign. BI-RADS CATEGORY: 2 - BENIGN RECOMMENDATION: Screening bilateral mammogram is recommended in 1 year. Mammo Location: [facility], [address] [place] [id number] -------- FINAL REPORT -------- Dictated By: Daniel Gregory Dictated Date: 11/13/2024 08:11 ET Assigned Physician: Daniel Gregory Reviewed and Electronically Signed By: Daniel Gregory Signed Date: 11/13/2024 08:21 ET Workstation ID: [id number] Transcribed By: Self Edit Transcribed Date: 11/13/2024 [...] and CC projection is performed in the Netcipia 2000-D unit. Computer aided detection utilizing the [...] MLO and CC projection is performed in theGE Senographe 2000-D unit. Computer aided detection utilizing [...] is recommended in 1 year. Mammo Location: [facility], [address] [place] [id number] -------- FINAL REPORT -------- Dictated By: Daniel Gregory Dictated Date: 11/13/2024 08:11 ET Assigned Physician: Daniel Gregory Reviewed and Electronically Signed By: Daniel Gregory Signed Date: 11/13/2024 08:21 ET Workstation ID: [id number] Transcribed By: Self Edit Transcribed Date: 11/13/2024 08:11 ET Result [facility] Dionisio Romano MD IMG BI PROCEDURES Final Result * Diabetes Eye Exam (05/12/2024) [facility] Diabetes: Annual Retina Eye Exam abstracted Result [facility] HEALTH MAINTENANCE Final Result * Colonoscopy (04/16/2024) [facility] Colonoscopy no interpretation , abstracted Anatomical Region Laterality Modality Other Result [facility] Provider HEALTH MAINTENANCE Final Result * Diabetes Foot Exam (10/09/2023) [facility] Diabetes: Annual Foot Exam abstracted Result [facility] HEALTH MAINTENANCE Final Result * Urine Albumin Creatinine Ratio (06/21/2023) [facility] Urine Albumin Creatinine Ratio abstracted Result [facility] HEALTH MAINTENANCE Final Result * Hepatitis C Screening (02/27/2023) [facility] Hepatitis C Screening abstracted us Historical Provider HEALTH MAINTENANCE Final Result * [facility] DEXA AXIAL SKELETON (12/05/2022 5:38 PM EST) Anatomical Region Laterality Modality Mammography 12/05/2022 11:1 5 AM EST Narrative 12/05/2022 5:38 PM EST [facility] Diagnostic Imaging Department [address] [place] [id number] Patient: TALIA WATTS /Age/Sex: 1950 - 71 - F Unit#: [id number] Location/Status: SPDIMAM/REG CLI Mnemonic[facility] Ordering Physician: DIONISIO ROMANO MD [facility] Dexa Axial Skeleton - 12/05/22 - History: Low estrogen state due to menopause. On omeprazole. Comparison: 08/10/14 Findings: Bone densitometry is performed utilizing dual energy x-ray absorptiometry (DXA) in the Vivaty unit. The lumbar spine and proximal femora [...] 0.1 percent. IMPRESSION: Normal bone mineral density. [id number] Dictating Physician: LATRICE SIMS MD Electronically Signed by: LATRICE SIMS MD Dic Date/Time: 12/05/221736 Sign date/Time: 12/05/221737 Procedure Note Latrice Sims MD - 12/21/2023 [facility] Diagnostic Imaging Department [address] [place] [address] Patient: MACTALIA CorderoO.B./Age/Sex: 1950 - 71 - F Unit#: [id number] [facility] Mn[facility]onic[facility] Ordering Physician: DIONISIO ROMANO MD [facility] Dexa Axial Skeleton - 12/05/22 - History: Low estrogen state due to menopause. On omeprazole. Comparison: 08/10/14 Findings: Bone densitometry is performed utilizing dual energy x-ray absorptiometry(DXA) in the Vivaty unit. The lumbar spine and proximal femora [...] 0.1 percent. IMPRESSION: Normal bone mineral density. [id number] Dictating Physician: LATRICE SIMS MD Electronically Signed by: LATRICE SIMS MD Dic Date/Time: 12/05/221736 Sign date/Time: 12/05/221737 Dionisoi Romano MD IMG BI PROCEDURES Final Result [...] ID:[id number] Group ID:[employer]O Type:Not on file Address: [facility] [address] [address] Care Teams Framing Inspector Relationship Specialty Start Date End Date Dionisio Romano MD [address] [phone] PCP - General Internal Medicine 02/25/13
--- OUTSIDE RECORDS SUMMARY | 2025-06-16 10:04 | XMS_ITS | Clinical Summary ---
Author Organization [facility] Address [address] [place], [place] [address] Phone Care Team Providers Care Leasing Manager Name Role Phone Diana Romano MD Primary Care Provider [phone] Boubacar Cabrera MD Unavailable [phone] Martín De Luna MD Unavailable [phone] Allergies No known active allergies Medications atorvastatin (LIPITOR) 80 MG tablet Take 80 mg by mouth daily. Active aspirin 81 MG EC tablet Take 81 mg by mouth daily. Active fluticasone propionate (FLONASE) 50 mcg/actuation nasal spray 1 spray by Nasal route daily as needed (seasonal allergies). Active methenamine (HIPREX) 1 gram tablet Take 1 g by mouth 2 (two) times a day with meals. Active therapeutic multivitamin tablet Take 1 tablet by mouth daily. Active cholecalciferol (VITAMIN D3) 2,000 unit capsule Take 2,000 Units by mouth daily. Active furosemide (LASIX) 20 MG tablet Take 20 mg by mouth daily. Active potassium chloride (KLOR-CON) 10 MEQ ER tablet Take 1 tablet by mouth every morning. 12/09/19 24 Active pantoprazole (PROTONIX) 40 MG tablet Take 40 mg by mouth daily. Active NIFEdipine (PROCARDIA XL) 60 MG 24 hr tablet Take 1 tablet by mouth every morning. 11/24/19 24 Active metOLazone (ZAROXOLYN) 2.5 MG tablet Take 1 tablet by mouth as needed. 12/18/19 24 Active FEROSUL 325 mg (65 mg iron) tablet Take 1 tablet by mouth as directed. M, W, and F 12/27/19 24 Active hydrALAZINE (APRESOLINE) 50 MG tablet Take 50 mg by mouth 3 (three) times a day. 11/24/19 24 Active furosemide (LASIX) 40 MG tablet Take 80 mg by mouth daily. Active carvedilol (COREG) 25 MG tablet Take 25 mg by mouth 2 (two) times a day. Active HUMALOG KWIKPEN INSULIN 100 unit/mL kwikpenIndicatio ns:Type 2 diabetes mellitus with peripheral neuropathy Up to 10 units, subcutaneously, 2-3x daily, 15 min AC 30 mL 3 01/31/20 25 Active LANTUS SOLOSTAR U-100 INSULIN 100 unit/mL (3 mL) InPn injection penIndications:T ype 2 diabetes mellitus with peripheral neuropathy Inject 18 Units under the skin daily. Up to 18 units, subcutaneously, once daily 30 mL 3 01/31/20 25 Active insulin pen needles, disposable, 29 gauge x 1/2 NdleIndications: Type 2 diabetes mellitus with peripheral neuropathy 1 each by Miscellaneous route 4 (four) times a day before meals and nightly. 400 each 01/31/20 25 Active dulaglutide (TRULICITY) 1.5 mg/0.5 mL subcutaneous injectionIndicat ions:Type 2 diabetes mellitus with peripheral neuropathy Inject 0.5 mL (1.5 mg total) under the skin every 7 days. 6 mL 01/31/20 25 Active glucagon (BAQSIMI) 3 mg/actuation [place] USE DIRECTRED FOR LOW BLOOD SUGAR Active Active Problems Problem Noted Date Diagnosed Date Essential hypertension 10/24/2023 Assessment & Plan (04/23/2025 5:18 PM EDT): Well controlled today. Assessment & Plan (11/06/2024 11:27 AM EST): BP high today. Has VNA coming in & will recheck tomorrow. Assessment & Plan (05/09/2024 3:16 PM EDT): BP well controlled today. Assessment & Plan (10/24/2023 2:35 PM EST): BP high today. Working closely with cardiology & renal. Neuropathy 04/11/2023 04/11/2023 Type 2 diabetes mellitus wit h retinopathy, with long-term current use of insulin Overview (04/11/2023): [facility] & Dr. Nielson Assessment & Plan (04/23/2025 5:20 PM EDT): Scheduled with ophtho. Assessment & Plan (11/06/2024 11:29 AM EST): Scheduled with ophtho. Assessment & Plan (05/09/2024 3:17 PM EDT): Up to date with ophtho. Assessment & Plan (10/24/2023 2:34 PM EST): Up to date with ophtho. Assessment & Plan (04/11/2023 8:45 PM EDT): Control reasonable based on report of katie readings. Some hypoglycemia, mainly when taking higher dose of lantus @ night. To stick with 20 units for now. We can titrate further if has ongoing lows or goes too high with this dose. Some lows later in the day. 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 Continue to work on eating healthy & keeping active, as able. To call or send in BG with problems with glycemic control. Up to date with ophtho. USP current use of insulin Assessment & Plan (02/16/2025 1:45 PM EDT): Will maintain her humalog and lantus dosing Assessment & Plan (04/11/2023 8:48 PM EDT): Using Katei 2, some issues w/ supplies. Will forward note to [facility]. They should fax us with any paperwork needed. Type 2 diabetes mellitus with peripheral neuropa thy Overview (04/11/2023): Dr Stokes Assessment & Plan (04/23/2025 5:20 PM EDT): Control suboptimal. Has just resumed trulicity after we had advised she hold it when wasn't feeling well/was ill/had poor appetite. Continue to work on eating healthy & keeping active, as able. To call or send in BG with problems with glycemic control. To schedule w/ podiatry. Assessment & Plan (02/16/2025 1:47 PM EDT): Control is unknown as the patient forgot her freestyle katie 2 sensor reader. No frequent or severe hypoglycemia. Historically control has been good. Will maintain her regimen for now. She will reach out if she started to go low frequently. Continue to work on eating healthy and being active. To call or message with any issues managing her glucose levels. Up to date with [facility]. Sees podiatry. Labs ordered Assessment & Plan (11/06/2024 11:30 AM EST): Control had been doing well previously, she states it has been settling down after recent illness, did not bring katie reader in for download. No frequent or severe hypoglycemia. Advised to hold trulicity until feeling back to normal/appetite better. If sugars start to run high overnight & when not eating during the day, perhaps resume lantus @ 10 units. Continue to work on eating healthy & keeping active, as able. To call or send in BG with problems with glycemic control. Follows w/ podiatry. Assessment & Plan (08/01/2024 10:40 AM EDT): Control is reasonable/good based upon the patient's freestyle katie 2 sensor download. No frequent or severe hypoglycemia. She has been having some lows over night, will have her lower her lantus to taking no more than 30 units for now. She will reach out if she has any issues with more lows. Continue to work on eating healthy and being active. To call or message with any issues managing her glucose levels. [facility] Sees podiatry. Labs ordered Assessment & Plan (05/09/2024 3:19 PM EDT): Control appears quite good based on CGM download. No frequent or severe hypoglycemia. Tending to drift down overnight, advised to lower lantus from 20 to 18 units & to be cautious w/ humalog when eating smaller meals & when treating high readings to help avoid lows. Will call for labs. Continue to work on eating healthy & keeping active. To call or send in BG with problems with glycemic control. Follows w/ podiatry. Assessment & Plan (01/16/2024 11:11 AM EST): Control is reasonable based upon the patient's freestyle katie 2 sensor download. No frequent or severe hypoglycemia. She is having a hard time getting her trulicity from the pharmacy. Discussed there is a nation wide shortage causing this issue. Will send a prescription for 2- 0.75 mg pens a week to see if we can get the pharmacy to cover this while the 1.5 mg weekly injection is on backorder. Continue to work on eating healthy and being active. To call or message with any issues managing her glucose levels. Up to date with [facility]. Sees podiatry. Will get recent labs from [facility] Assessment & Plan (10/24/2023 2:34 PM EST): Control appears quite good based on CGM download. Is taking prandial insulin less often. Varies lantus dose significantly, advised to stick with 20 units & we can adjust over time as needed. No frequent or severe hypoglycemia. Will do labs. To call if hasn't heard from us within 1-2 weeks. Continue to work on eating healthy & keeping active. To call or send in BG with problems with glycemic control. Follows w/ podiatry. Assessment & Plan (07/19/2023 3:58 PM EDT): Control is good based upon the patient's freestyle katie 2 sensor download. No frequent or severe hypoglycemia. She would like to change her victoza to once weekly trulicity. Reviewed the difference between victoza and trulicity. Showed her how to use the trulicity pen. She is comfortable with using the new pen. She will finish her victoza and then the next day start the trulicity. She will call if she has any issues getting it. Continue to work on eating healthy and being active. To call or message with any issues managing her glucose levels. Up to date with ophtho. Assessment & Plan (04/11/2023 8:45 PM EDT): Following w/ podiatry, Dr. Stokes. Long-term current use of inj ectable noninsulin antidiabetic medication Assessment & Plan (02/16/2025 1:45 PM EDT): Will maintain her trulicity dosing Coronary artery disease Overview (04/11/2023): S/p CABG x 3, 02/2023 Type 2 diabetes mellitus wit h stage 4 chronic kidney disease, with long-term current use of insulin Assessment & Plan (04/23/2025 5:20 PM EDT): Following w/ renal. BP ok today. Will forward note/labs. Assessment & Plan (11/06/2024 11:30 AM EST): Following w/ Dr. Magana. Assessment & Plan (05/09/2024 3:16 PM EDT): Following [facility]/ Dr. Magana. Assessment & Plan (10/24/2023 2:35 PM EST): Following [facility]/ Dr. Magana. Assessment & Plan (04/11/2023 8:46 PM EDT): Following [facility]/ Dr. Magana. BP under good control. Encounters Date Type Department Care Team Description 04/23/2025 11:06 AM EDT - 04/23/2025 11:59 PM EDT Hospital Encounter [facility] [address] [place] [address] Winter Zaman MD Discharge Disposition: Home or Self Care 04/23/2025 10:20 AM EDT Office Visit [facility] [address] [place] [address] Winter Zaman MD Type 2 diabetes mellitus with peripheral neuropathy (Primary Dx); Type 2 diabetes mellitus with stage 4 chronic kidney disease, with long-term current use of insulin; Type 2 diabetes mellitus with retinopathy, with long-term current use of insulin, macular edema presence unspecified, unspecified laterality, unspecified retinopathy severity; Long-term current use of injectable noninsulin antidiabetic medication; USP current use of insulin; Essential hypertension from Last 3 Months Social History Tobacco Use Types Packs/Day Years Used Date Smoking Tobacco: Never Smokeless Tobacco: Never Tobacco Cessation:Counseling Given: Not Answered Alcohol Use Standard Drinks/Week Comments Never 0 (1 standard drink = 0.6 oz pur e alcohol) Education Answer Date Recorded Are you interested in more education? Not on diego e 03/17/2023 Are you concerned about learning? Not on file 03/17/2023 No 03/17/2023 No 03/17/2023 Digital Access Answer Date Recorded No 04/11/2023 No 04/11/2023 Reliable internet access at home? Not on file 04/11/2023 Device with a working camera? Not on file Comments Unknown Sex and Gender Information Value Date Recorded Sex Assigned at Not on file Legal Sex Female 11:33 AM EDT Gender Identity Not on file Sexual Orientation Not on file Last Filed Vital Signs Vital Sign Reading Time Taken Comments Blood Pressure 135/60 04/23/2025 10:22 AM EDT Pulse 77 04/23/2025 10:22 AM EDT Temperature 36.6 C (97.8 F) 01/16/2024 10:27 AM EST Respiratory Rate - - Oxygen Saturation 99% 04/23/2025 10:22 AM EDT Inhaled Oxygen Concentration - - Weight 100.7 kg (222 lb) 04/23/2025 10:22 AM EDT Height 165.1 cm (5' 5 ) 11/06/2024 9:30 AM EST Body Mass Index 36.94 11/06/2024 9:30 AM EST Plan of Treatment Upcoming Encounters Date Type Department Care Team (Late st Contact Info) Description 08/04/2025 9:00 AM EDT Office Visit [facility] [address] [place] [address] [place] [address] Julienne Vivas PA-C [address] [place] [address] 10/23/2025 9:40 AM EST Office Visit [facility] [address] [place] [address] Julienne Vivas PA-C [address] [place] [address] 01/22/2026 10:00 AM EST Office Visit [facility] [address] [place] [address] Winter Zaman MD [address] [place] [phone] Health Maintenance Due Date Last Done Comments Adult Td,Tdap Booster 1950 DEPRESSION SCREENING 1963 HEPATITIS C SCREENING 1969 PNEUMOCOCCAL VACCINES (50+ years) (1 of 2 - PCV) 1970 COLOGUARD 1996 COLONOSCOPY 1996 COLORECTAL CANCER SCREENING 1996 FIT TEST 1996 FOBT 1996 SIGMOIDOSCOPY 1996 VIRTUAL COLONOSCOPY 1996 RSV VACCINE (1 - Risk 60-74 years 1-dose series) 2011 OSTEOPOROSIS SCREENING INITIAL (ONE-TIME) 2016 ZOSTER VACCINES (3 of 3) 01/23/2020 020, 09/19/2013, 11/05/2012 DIABETIC EYE EXAM 04/11/2023 COVID-19 VACCINE ( season) 2024 HEMOGLOBIN A1C 07/24/2025 04/23/2025, 01/17, 10/24/2023, Additional history exists BLOOD PRESSURE 10/23/2025 04/23/2025 POTASSIUM LEVEL 04/23/2026 04/23/2025, 07/20, 04/09/2024, Additional history exists MAMMOGRAM 11/13/2026 11/13/2024, 11/13/2024 SMOKING STATUS SCREENING (Once After 26 Yrs) Completed 01/30/2025 HEPATITIS A VACCINES Aged Out No long er eligible based on patient's age to complete this topic HIB VACCINES Aged Out No longer eligi ble based on patient's age to complete this topic MENINGOCOCCAL VACCINES (ACWY) Aged Out No longer eligible based on patient's age to complete this topic MENINGOCOCCAL VACCINES (B) Aged Out N o longer eligible based on patient's age to complete this topic Medical Devices Not on file Procedures Procedure Name Priority Date/Time Associated Diagnosis Comments HEMOGLOBIN A1C Routine 04/23/2025 11:17 AM EDT Type 2 diabetes mellitus with peripheral neuropathy ASPARTATE AMINOTRANSFERASE (AST) Routine 04/23/2025 11:17 AM EDT Type 2 diabetes mellitus with peripheral neuropathy ALANINE AMINOTRANSFERASE (ALT) Routine 04/23/2025 11:17 AM EDT Type 2 diabetes mellitus with peripheral neuropathy BASIC METABOLIC PANEL Routine 04/23/2025 11:17 AM EDT Type 2 diabetes mellitus with peripheral neuropathy from Last 3 Months Results * (ABNORMAL) Alanine aminotransferase (ALT) (04/23/2025 11:17 AM EDT) ALT 69(H) 0 - 40 U/L [facility] Blood 04/23/2025 11:1 7 AM EDT 04/23/2025 11:22 AM EDT Winter Zaman MD LAB BLOOD ORDERABLES F inal Result [address] [address] * (ABNORMAL) Aspartate aminotransferase (AST) (04/23/2025 11:17 AM EDT) AST 69(H) 0 - 37 U/L [facility] Blood 04/23/2025 11:1 7 AM EDT 04/23/2025 11:22 AM EDT Winter Zaman MD LAB BLOOD ORDERABLES F inal Result [address] [address] * (ABNORMAL) Hemoglobin A1c (04/23/2025 11:17 AM EDT) HEMOGLOBIN A1C 8.3(H) 4.3 - 5.8 % [facility] Blood 04/23/2025 11:1 7 AM EDT 04/23/2025 11:21 AM EDT Winter Zaman MD LAB BLOOD ORDERABLES F inal Result Performing Organization Address [facility] Co de Phone Number [address] [address] * (ABNORMAL) Basic metabolic panel (04/23/2025 11:17 AM EDT) SODIUM 137 133 - 146 mmol/L [facility] CHLORIDE 102 96 - 108 mmol/L [facility] POTASSIUM 4.3 3.3 - 5.1 mmol/L [facility] CO2 25 21 - 35 mmol/L [facility] BUN 46(H) 6 - 19 mg/dL [facility] CREATININE 2.40(H) 0.5 - 1.5 mg/dL [facility] GLUCOSE 238(H) 70 - 99 mg/dL [facility] CALCIUM 9.1 8.4 - 10.3 mg/dL [facility] EGFR 21(L) >59 mL/min/1.7 3m2 [facility] Comment:Estimated glomerular filtration rate calculated using the CKD-EPI refit equation. ANION GAP 14 10 - 20 mmol/L [facility] Blood 04/23/2025 11:1 7 AM EDT 04/23/2025 11:22 AM EDT Witner Zaman MD LAB BLOOD ORDERABLES F inal Result Performing Organization Address City/[facility]/ZIP Co de Phone Number [address] [address] from Last [address] [place] [address] [address] [place] [place] [address] MEDICARE REPLACEMENT Care Teams Leasing Manager Relationship Specialty Start Date End Date Diana Romano MD [address] [place] [phone] PCP - General Internal Medicine 02/22/23 Boubacar Cabrera MD [address] [place] [phone] Cardiology 10/24/23 Martín De Luna MD [address] [place] [address] Nephrology 04/23/25 Additional Source Comments The information contained in this document represents components of the legal health record. It is not the complete legal health record.[facility]
[2025-06-16 13:35] LABS: Hematocrit 28.8 % (37.0-47.0); Hemoglobin 9.3 g/dl (12.0-16.0); Mean Corpuscular HGB Conc 32.3 g/dl (31.0-35.0); Mean Corpuscular Hemoglobin 28.3 pg (27.0-33.0); Mean Corpuscular Volume 87.5 fL (80.0-98.0); NRBC Abs Auto 0.000 X10*3/uL (0.0-0.012); NRBC Pct Auto 0.0 /100WBC (0.0-0.2); Platelet Count 224 X10*3/uL (160-400); Red Blood Count 3.29 X10*6/uL (4.20-5.50); White Blood Count 6.3 X10*3/uL (4.8-10.8)
[2025-06-16 13:58] LABS: Anion Gap 12 (12-20); Blood Urea Nitrogen 47 mg/dL (9-16); Calcium 8.6 mg/dL (8.4-10.2); Carbon Dioxide 22 mmol/L (22-29); Chloride 109 mmol/L (96-108); Estimated Glomerular Filt Rate 17; Iron 54 mcg/dL (30-160); Percent Iron Saturation 22 % (15-50); Potassium 4.4 mmol/L (3.3-5.1); Sodium 139 mmol/L (135-145); Total Iron Binding Capacity 241 mcg/dL (228-428); Unsaturated Iron Binding 187 ug/dL
[2025-06-16 14:02] LABS: Ferritin 130 ng/mL (10-250)
== END 2025-06-16 09:31 | disposition home or self-care (01) ==
LOC: HO.HKASLDS 09:30
PROVIDERS: Visit Provider Internal Medicine Hypertension Specialist
DX: E11.22 Type 2 diabetes mellitus with diabetic chronic kidney disease (principal); N18.4 Chronic kidney disease, stage 4 (severe); Z79.4 Long term (current) use of insulin
CPT/HCPCS: 36415; 80048; 82728; 83540; 85027

== ENCOUNTER 2025-06-17 09:23 | Outpatient (AMB) | payer OTHER, SELFPAY ==
[2025-06-17 09:28] VITALS: BP 118/50; PULSE 69; O2SAT 97
--- NOTE | 2025-06-17 09:28 | HO.NEPHOV_ITS ---
Vital Signs 06/17/25 09:28 Height 5 ft 6 in BP 118/50 L Blood Pressure Location Lt brachial Position Sitting Pulse 69 Pulse Source Pulse Oximeter Pulse Oximetry (%) 97 Oxygen Delivery Method Room Air Intake Visit Reasons: 3-4wk follow-up w/labs- Conf Advanced Clinical Specialist Required: No Accompanied by: Spouse Allergies No Known Allergies Allergy (Verified 06/17/25 09:31) Medication List - Last Reconciled 06/17/25 by Martín De Luna MD albuterol sulfate 90 mcg/actuation (ProAir HFA) 2 puffs inhalation Q6H PRN albuterol sulfate 90 mcg/actuation (ProAir RespiClick) 1 inh inhalation Q4-6H PRN aspirin 81 mg PO DAILY atorvastatin 80 mg PO DAILY carvedilol 12.5 mg PO BID cholecalciferol (vitamin D3) 50 mcg PO DAILY ferrous sulfate (FeroSul) 325 mg PO DAILY furosemide 80 mg PO DAILY hydralazine 75 mg (1.5 x 50 mg) PO TID insulin glargine (Lantus Solostar U-100 Insulin) 62 units subcut DAILY insulin lispro (Humalog KwikPen (U-100) Insulin) subcut metolazone 2.5 mg PO DAILY PRN nifedipine ER mg PO DAILY pantoprazole 40 mg PO DAILY potassium chloride ER 10 mEq PO DAILY HPI Comments Details: 73-year-old pleasant woman with a history of diabetes mellitus for more than 35 years who was at chronic kidney disease. She is history of congestive heart failure and was on Entresto Lasix and furosemide. Back in November of 2023 creatinine was 2.6 with EGFR of 19 mL/minute. She is currently in nifedipine 60mg daily, hydralazine 75mg TID, carvedilol 12.5mg BID and furosemide 40mg PO BID She continues to have back pain. She has chronic shortness of breath (reports since prior to heart surgery last year which she states did not really help her breathing much. States at rest is ok, with exertion continues to have some dyspnea chronically). No nausea, vomiting. She has leg edema. Wears compression stockings. No weight loss. All other systems were reviewed History of congestive heart failure with preserved ejection fraction. 09/10/24 reports shortness of breath for a while now reports a year ago had open heart surgery, reports before then had it but surgery didn't make it better and has continued blood pressure medications- reports has not taken yet this a.m. Reports SBP at home is usually in 130s. 10/15/2024. Milla was hospitalized about a week ago. She had acute kidney injury superimposed on CKD with fungemia. Serum creatinine peaked more than 4. Diuretics were held. Renal function gradually improved. She is currently not on diuretics creatinine is around 3. She has significant edema. No shortness of breath at present. Accompanied by her family member. She had recently undergone laparoscopic cholecystectomy for symptomatic cholelithiasis. During this hospitalization faustina was negative. He has been catheter was inserted 1121. She is currently on Micafungin and Zosyn 12/03/24; BP was low ; [place] [facility] [place] : Cr 2.2 ;Nov 2024 Cr 2.2 with eGFR of 22 ml/mt 01/14/25: Recently in ER for a viral infection; Resolved 02/04/25 Leg edema increased;Received IV Lasix 03/04/25 ;Here for follow up;Seen last week by for worsening renal function ;Diuretics were decreased ;She feels better Edema has improved ;Cr is still up 04/01/25 74-year-old female presenting for the ongoing management of chronic kidney disease. She reports an improvement in her kidney function, from 14% to 19%, over recent evaluations. There is ongoing management of her hypertension and diabetes, with noted dietary influences on her blood glucose control. During a recent vacation, she experienced fluctuations in her blood glucose levels due to less consistent insulin use. The patient reports continued management of edema in her lower extremities, utilizing diuretics and support stockings. Recent anemia was addressed with a corrective injection following a hemoglobin report at 9.0, with close monitoring planned. She describes an increased activity level during a vacation, which she believes positively impacted her overall condition. Her breathing remains stable, and she maintains a stable weight. 04/29/25: No new issues. Here for Retacrit. 05/20/25;Still with fatigue;No dyspnea; 06/17/25 : [facility] for [facility] Medical History Chronic kidney disease Degenerative joint disease (DJD) of hip Cataract Bunion Fatty liver DJD (degenerative joint disease), lumbar DJD (degenerative joint disease), cervical Diabetes mellitus type 2 with neurological manifestations Vitamin D deficiency Urinary incontinence Allergic rhinitis GERD (gastroesophageal reflux disease) Depression Diabetic retinopathy Hypertension Hyperlipidemia Diabetic nephropathy Surgical History History of cholecystectomy (~09/2024) History of open heart surgery (~02/2023) History of adjustable gastric banding Social History Patient Tobacco Use Status: Never used Tobacco Physical Exam Vital Signs: Last Vital Signs Pulse 69 06/17/25 09:28 Pulse Ox 97 06/17/25 09:28 Oxygen Delivery Method Room Air 06/17/25 09:28 Neck Neck: Yes supple Resp Auscultation: clear to auscultation bilaterally Cardio Palpation: no palpable S3 Heart sounds: no rubs GI Palpation (GI): Soft to palpation Auscultation: normal bowel sounds Neuro Motor exam (neuro): no asterixis Extrem General: Yes edema Office Meds epoetin disha-epbx 20,000 unit/mL injection solution Performing Provider: Martín De Luna MD Performing Location: [facility] [place] [facility] Administered by: Martín De Luna MD on 06/17/25 09:38 Dose Route Admin Location Dispensed Lot Number Expiration Date FORMERLY NAMED [facility] B[employer] 20,000 unit subcut right arm 1 mL [id number] 01/16/27 8103-3402-03 [facility] [employer] Total Dispensed Waste 1 mL 0 % Results Reviewed Nephrology Results: Hgb, (12.0-16.0) 9.3 g/dl L 06/16/25 WBC, (4.8-10.8) 6.3 X10*3/uL 06/16/25 Plt Count, (160-400) 224 X10*3/uL 06/16/25 Sodium, (135-145) 139 mmol/L 06/16/25 Potassium, (3.3-5.1) 4.4 mmol/L 06/16/25 Chloride, (96-108) 109 mmol/L H 06/16/25 Carbon Dioxide, (22-29) 22 mmol/L 06/16/25 BUN, (9-16) 47 mg/dL H 06/16/25 Creatinine, (0.5-1.4) 2.74 mg/dL H 06/16/25 Calcium, (8.4-10.2) 8.6 mg/dL 06/16/25 Assessment & Plan Assessment & Plan (1) Diabetes mellitus with chronic kidney disease: Code(s): E11.22 - Type 2 diabetes mellitus with diabetic chronic kidney disease Category: Medical Qualifiers: Diabetes mellitus type: type 2 Diabetes mellitus medical terminologist insulin use: with residential use Chronic kidney disease stage: stage 4 (severe) Qualified Code(s): E11.22 - Type 2 diabetes mellitus with diabetic chronic kidney disease; N18.4 - Chronic kidney disease, stage 4 (severe); Z79.4 - computer terminal operator (current) use of insulin (2) JERZY (acute kidney injury): Code(s): N17.9 - Acute kidney failure, unspecified Category: Medical (3) Hypertension: Code(s): I10 - Essential (primary) hypertension Category: Medical Qualifiers: Hypertension type: primary hypertension Qualified Code(s): I10 - Essential (primary) hypertension (4) Anemia in chronic kidney disease: Code(s): N18.9 - Chronic kidney disease, unspecified; D63.1 - Anemia in chronic kidney disease Category: Medical Qualifiers: Chronic kidney disease stage: stage 4 (GFR 15-29) Qualified Code(s): N18.4 - Chronic kidney disease, stage 4 (severe); D63.1 - Anemia in chronic kidney disease (5) Chronic kidney disease: Code(s): N18.9 - Chronic kidney disease, unspecified Category: Medical Qualifiers: Chronic kidney disease stage: stage 4 (severe) Qualified Code(s): N18.4 - Chronic kidney disease, stage 4 (severe) (6) CKD stage 4 due to type 2 diabetes mellitus: Code(s): E11.22 - Type 2 diabetes mellitus with diabetic chronic kidney disease; N18.4 - Chronic kidney disease, stage 4 (severe) Category: Medical Plan 74-year-old woman with a history of longstanding diabetes mellitus and coronary disease with stage IV CKD. CKD is most likely due to underlying diabetic kidney disease. Nondiabetic causes seem unlikely based on the clinical picture. Cr is better Down to 2.51 as of 03/31/25 ( drop in GFR was most likely from hypoperfusion) Keep on lower dose of diuretics for now and reassess Maintain A1c less than 7%. She is on adequate dose of diuretics at this time. She should stay on low-sodium diet which she is working on. She will benefit from SGLT2 inhibitors. Hypertension. 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 Iron stores are adequate. Administered Retacrit 49592 U administered subcutaneously today into right arm secondary hyperparathyroidism Mild elevation PTH. She will follow this and start her on vitamin D3 analog as needed. Discussed Dialysis options Has been referred for home dialysis evaluation She wants to think about it! Orders: Orders AMB Epoetin Injection Practice Supplied Today N40.1 - Benign prostatic hyperplasia with lower urinary tract symptoms Coding Level of Care Code Est Pt Level 4 (98575) Diagnoses Type 2 diabetes mellitus with stage 4 chronic kidney disease, with long-term current use of insulin E11.22; N18.4; Z79.4 Diabetes mellitus type: type 2 Diabetes mellitus residential insulin use: with residential use Chronic kidney disease stage: stage 4 (severe) JERZY (acute kidney injury) N17.9 Primary hypertension I10 Hypertension type: primary hypertension Anemia in stage 4 chronic kidney disease N18.4; D63.1 Chronic kidney disease stage: stage 4 (GFR 15-29) Stage 4 chronic kidney disease N18.4 Chronic kidney disease stage: stage 4 (severe) CKD stage 4 due to type 2 diabetes mellitus E11.22; N18.4
--- OUTSIDE RECORDS SUMMARY | 2025-06-17 09:52 | XMS_ITS ---
Author Name Sera Houser NP Address [address] [place] [address] Phone [phone] [facility] Care Team Providers Care Chief Pharmacist Name Role Phone Sera Houser Unavailable [phone] [facility] Unavailable Unavailable Unavailable [phone] Unavailable Unavailable Unavailable Unavailable Unavailable [phone] Unavailable Unavailable [phone] Unavailable Unavailable [phone] Unavailable Unavailable [phone] Unavailable Unavailable [phone] Unavailable Unavailable [phone] Unavailable Unavailable [phone] Unavailable Unavailable [phone] Unavailable Unavailable [phone] [employer] Unavailable [phone] medline Unavailable [phone] [place], Diana Unavailable [phone] CHELSIE MEYER Unavailable [phone] Reason for Referral Not Available Allergies, adverse [...] No Data Available B-D PEN NDL SHRT [id number](03/19 6) SHAW USE DIRECTED TO ADMINISTER INSULIN [...] Active 2023-01-02 N/A Pt will f/u with [facility] to schedule OP f/u for discussion of Cholecystectomy. Encounters Encounters Type Facility Date of Service Diagnosis/Co mplaint Medication List Documented (1159F) [facility]20[place] Medication List Documented (1159F[place] [facility] Medication List Documented (1159F[place] [facility] Medication List Documented (1159F[place] [facility] Medication List Documented (1159F[place] [facility] Medication List Documented (1159F[place] [facility] Medication List Documented (1159F) [facility] 09/[place]/2022 Medication List Documented (1159F) [facility]2022 Type 2 diabetes mellitus wit h diabetic chronic kidney diseaseChronic kidney disease, stage 3 unspecifiedChronic obstructive pulmonary disease, unspecifiedHyp hrt & chr kdny dis w hrt fail and stg 1-4/unsp chr kdnyHeart failure, unspecifiedHyperlipidemia, unspecifiedMajor depressive disorder, single episode, unspecifiedUnspecified osteoarthritis, unspecified site No Data Available [facility] 09/[place]/2022 Unspecified osteoarthritis, unspecified siteOther chronic painHeart failure, unspecifiedChronic obstructive pulmonary disease, unspecified No Data Available [facility] 10/18/2022 Unspecified osteoarthritis, unspecified siteOther chronic pain No Data Available [facility] 01/02/2023 Cholecystitis, unspecified No Data Available [facility] 01/02/2023 Vital Signs Date of Collection Vitals 2022-09-11 07:40:43 Height - 165.1 cmWei ght - 109.32 kgBody Mass Index (BMI) - 40.1 kg/m2BP Diastolic - 84.0 mm[Hg]BP Systolic - 170.0 mm[Hg]Heart Rate - 88.0 /min Social History Social History Social History Observation Description Effec tive Time Current Smoking Status Never smoker 2025-05-21 0 Sex Female History of Procedures Procedures [...] (do not use for phone, instead use [id number]) [id number] 2022-09-11 No Data Available No Data Availa ble No Data Available [id number] 2022-09-22 No Data Available No Data Available No Data Available [id number] 2022-10-18 No Data Available No Data Available No Data Available [id number] 2023-01-02 No Data Available No Data Available [...] Cholecystitis [K81.9 ]> Pt will f/u with [facility] to schedule OP f/u for discussion of [...] hospital course: 12/20/22- 12/22/22Pt was seen at [facility] for chest and abdominal pain. [...] BY MOUTH ONCE QHSB-D PEN NDL SHRT [id number](04/03) SHAW sig: USE DIRECTED TO ADMINISTER INSULIN [...]
--- OUTSIDE RECORDS SUMMARY | 2025-06-17 09:52 | XMS_ITS | Continuity of Care Document ---
Author Organization [facility]. If a dditional information is needed, contact Health Information Management at [phone] Address [address] [place] [address] Phone Care Team Providers Care Plant Puller Name Role Phone Unavailable Unavailable Unavailable Unavailable Unavailable Unavailable Unavailable Unavailable Unavailable Unavailable Unavailable Unavailable Problems Disorder of toe Onset:16-Mar-2024 Talha Ackerman APRN Chest pain Onset:11-Jan-2015 Allergies and Adverse Reactions No Known Drug Intolerances(A llergy) Onset: 11-Jan-2015 Reaction:UNKNOWN Social History Smoking Status Never smoked tobacco Recorded: 16-Mar-2024
--- OUTSIDE RECORDS SUMMARY | 2025-06-17 09:53 | XMS_ITS | Clinical Summary ---
Author Organization 175 [facility] Address [address] [place] [address] Phone Care Team Providers Care Departmental Secretary Name Role Phone Dionisio Romano MD Primary Care Provider [phone] Allergies No known active allergies Medications docusate [...] 24 hr tabletIndicati ons:Coronary artery disease involving igiugig coronary artery of igiugig heart without angina pectoris Take 1 tablet [...] echocardiogram in September 2024 while hospitalized at [facility] which was reviewed. Abdominal pain 12/09/2024 [...] Edema 09/25/2023 Coronary artery disease invo lving igiugig coronary artery of igiugig heart without angina pectoris 03/26/2023 Overview (09/04/2024): [...] mellitus type 2 wit h neurological manifestations ([facility] V24, [facility] V28) 02/13/2017 DJD (degenerative joint disease), cervical 02/13 DJD (degenerative joint disease), lumbar 017 Fatty liver 02/13/2017 GERD (gastroesophageal reflux disease) 7 Type 2 diabetes mellitus wit h cataract ([facility] V24, [facility] V28) 02/13/2017 Urinary incontinence [...] D deficiency 02/13/2017 Depression 02/08/2017 Diabetic neuropathy ([facility] V24, [facility] V28) 0 02/08/2017 Diabetic retinopathy ([facility] V24, [facility] V28) 02/08/2017 Hyperlipidemia 02/08/2017 [...] Type Department Care Team Description 05/29/2025 Telephone [facility] [address] [facility] [address] [place] [phone] Michael Torrez MD Referral (Cardiac Rehab) 04/16/2025 Telephone Internal Medicine [facility] [address] [facility] [address] [place] [address] Adriana Delatorre MA prior auth 04/10/2025 11:30 AM EDT Office Visit Internal Medicine [facility] [address] [place] [address] Dionisio Romano MD Stage 3b chronic kidney disease (CMS/HCC V24, [facility] V28) (Primary Dx); Primary hypertension; Coronary artery disease involving igiugig coronary artery of igiugig heart without angina pectoris; Diabetes mellitus type 2 with neurological manifestations ([facility] V24, [facility] V28) from Last 3 Months Immunizations Name [...] PROCEDURE: HISTORICAL ROTATOR CUFF REPAIR APPENDECTOMY PROCEDURE: LA APPENDECTOMY CATARACT EXTRACTION PROCEDURE: HISTORICAL CATARACT REMOVAL OTHER SURGICAL HISTORY PROCEDURE: ---- OTHER ----; COMMENT: venous ligation LAPAROSCOPIC GASTRIC BANDING PROCEDURE: LAP ADJUSTABLE GASTRIC BAND CORONARY ARTERY BYPASS GRAFT Medical History Medical History Date Comments Diabetic neuropathy ([facility] V24, [facility] V28) 02/08/2017 DX:Diabetic neuropathy ([facility]) Hyperlipidemia 02/08/2017 DX:Hyperlipidemi a Hypertension 02/08/2017 DX:Hypertension Diabetic retinopathy ([facility] V24, [facility] V28) 02/08/2017 DX:Diabetic retinopathy ([facility] ) Depression 02/08/2017 DX:Depression History of adjustable gastric banding 02/13/2017 DX:History of adjustable gastric banding Diabetes mellitus type 2 wit h neurological manifestations ([facility], [facility]28) 02/13/2017 DX:Diabetes mellitus type 2 with neurological manifestations ([facility]) Type 2 diabetes mellitus wit h eye manifestations ([facility]24, [facility] V28) 02/13/2017 DX:Type 2 diabetes mellitus with eye manifestations ([facility]) Type 2 diabetes mellitus wit h cataract ([facility]24, [facility] V28) 02/13/2017 DX:Type 2 diabetes mellitus with cataract ([facility]) Allergic rhinitis 02/13/2017 DX:Allergic [...] Insulin dependent type 2 destini betes mellitus ([facility] V24, [facility] V28) DX:Insulin depende nt type 2 diabetes mellitus ([facility]) RUQ pain DX:RUQ pain Anemia Diabetes ([facility] V24, [facility] V28) Family History Medical History Relation Name [...] AM EDT Office Visit Internal Medicine - [place] [address] [facility] [address] [place] [phone] Dionisio Romano MD [address] [facility] [address] [place] [phone] 10/01/2025 10:40 AM EST Office Visit [facility] - [facility] [address] [place] [phone] Pancho Montes De Oca NP [address] [place] [address] [address] [place] [address] Health Maintenance Due Date Last Done Comments [...] Routine 06/21/2023 HEPATITIS C SCREENING Routine 02/27/2023 [facility] DEXA AXIAL SKELETON Routine 12/05/2022 [...] LAB CHEMISTRY METHOD 12/16/2024 2:56 PM EST [facility] Potassium 4.1 3.5 - 5.5 mmol/L LAB CHEMISTRY METHOD 12/16/2024 2:56 PM EST [facility] Chloride 104 96 - 110 mmol/L LAB CHEMISTRY METHOD 12/16/2024 2:56 PM EST [facility] CO2 29 21 - 32 mmol/L LAB CHEMISTRY METHOD 12/16/2024 2:56 PM [facility] Anion Gap 4 3 - 11 LAB CHEMISTRY METHOD 12/16/2024 2:56 PM [facility] Glucose 223(H) 70 - 100 mg/dL LAB CHEMISTRY METHOD 12/16/2024 2:56 PM [facility] BUN 36(H) 5 - 25 mg/dL LAB CHEMISTRY METHOD 12/16/2024 2:56 PM [facility] Creatinine 2.33(H) 0.50 - 1.10 mg/dL LAB CHEMISTRY METHOD 12/16/2024 2:56 PM [facility] eGFR 22(L) >=60 mL/min/1. 73m2 LAB CHEMISTRY METHOD 12/16/2024 2:56 PM EST [facility] Comment:Calculation based on the Chronic Kidney Disease Epidemiology Collaboration (CKD-EPI) equation refit without adjustment for race. BUN/Creatinine Ratio 15.5 LAB CHEMISTRY METHOD 12/16/2024 2:56 PM [facility] Calcium 9.2 8.5 - 10.5 mg/dL LAB CHEMISTRY METHOD 12/16/2024 2:56 PM [facility] Blood Venous blood specimen / Unknown Venipuncture / Unknown 12/16/2024 9:48 AM EST 12/16/2024 9:48 AM EST us Dionisio Romano MD LAB BLOOD ORDERABLES Final Res ult [facility] [address] [place] [address], [place] [phone] * MG Mammo Digital Diagnostic w Isaac bilat (11/13/2024 8:23 AM EST) Anatomical Region Laterality Modality Breast Bilateral Mammography 11/13/2024 8:11 AM EST Impressions 11/13/2024 8:21 AM EST Benign. BI-RADS CATEGORY: 2 - BENIGN RECOMMENDATION: Screening bilateral mammogram is recommended in 1 year. Mammo Location: [facility], [address] [place] [address] -------- FINAL REPORT -------- Dictated By: Daniel Gregory Dictated Date: 11/13/2024 08:11 ET Assigned Physician: Daniel Gregory Reviewed and Electronically Signed By: Daniel Gregory Signed Date: 11/13/2024 08:21 ET Workstation ID: [id number] Transcribed By: Self Edit Transcribed Date: 11/13/2024 [...] and CC projection is performed in the [employer] 2000-D unit. Computer aided detection utilizing the [...] is recommended in 1 year. Mammo Location: [facility], [address] [place] [address] -------- FINAL REPORT -------- Dictated By: Daniel Gregory Dictated Date: 11/13/2024 08:11 ET Assigned Physician: Daniel Gregory Reviewed and Electronically Signed By: Daniel Gregory Signed Date: 11/13/2024 08:21 ET Workstation ID: [id number] Transcribed By: Self Edit Transcribed Date: 11/13/2024 08:11 ET Result [facility] Dionisio Romano MD IMG BI PROCEDURES Final Result * Diabetes Eye Exam (05/12/2024) [facility] Diabetes: Annual Retina Eye Exam abstracted Result [facility] HEALTH MAINTENANCE Final Result * Colonoscopy (04/16/2024) [facility] Colonoscopy no interpretation , abstracted Anatomical Region Laterality Modality Other Result [facility] Provider HEALTH MAINTENANCE Final Result * Diabetes Foot Exam (10/09/2023) [facility] Diabetes: Annual Foot Exam abstracted Result [facility] HEALTH MAINTENANCE Final Result * Urine Albumin Creatinine Ratio (06/21/2023) [facility] Urine Albumin Creatinine Ratio abstracted Result [facility] HEALTH MAINTENANCE Final Result * Hepatitis C Screening (02/27/2023) [facility] Hepatitis C Screening abstracted us Historical Provider HEALTH MAINTENANCE Final Result * [facility] DEXA AXIAL SKELETON (12/05/2022 5:38 PM EST) Anatomical Region Laterality Modality Mammography 12/05/2022 11:1 5 AM EST Narrative 12/05/2022 5:[address] [facility] Diagnostic Imaging Department [address] [place] [address] Patient: TALIA WATTS /Age/Sex: 1950 - 71 - F Unit#: [id number] Location/Status: SPDIMAM/REG CLI Mnem[facility] Ordering Physician: DIONISIO ROMANO MD [facility] Dexa Axial Skeleton - 12/05/22 - History: Low estrogen state due to menopause. On omeprazole. Comparison: 08/10/14 Findings: Bone densitometry is performed utilizing dual energy x-ray absorptiometry (DXA) in the HelloTel unit. The lumbar spine and proximal femora [...] 0.1 percent. IMPRESSION: Normal bone mineral density. [id number] Dictating Physician: LATRICE SIMS MD Electronically Signed by: LATRICE SIMS MD Dic Date/Time: 12/05/221736 Sign date/Time: 12/05/221737 Procedure Note Latrice Sims MD - 12/21/2023 [facility] Diagnostic Imaging Department [address] [place] [address] Patient: MACTALIA CorderoO.B./Age/Sex: 1950 - 71 - F Unit#: [id number] [facility] Mnemonic[facility]ing [facility] Ordering Physician: DIONISIO ROMANO MD [facility] Dexa Axial Skeleton - 12/05/22 - History: Low estrogen state due to menopause. On omeprazole. Comparison: 08/10/14 Findings: Bone densitometry is performed utilizing dual energy x-ray absorptiometry(DXA) in the HelloTel unit. The lumbar spine and proximal femora [...] 0.1 percent. IMPRESSION: Normal bone mineral density. [id number] Dictating Physician: LATRICE SIMS MD Electronically Signed [...] ID:[id number] Group ID:[id number] Type:Not on file Address: [facility] [address] [address] Care Teams Departmental Secretary Relationship Specialty Start Date End Date Dionisio Romano MD [address] [phone] PCP - General Internal Medicine 02/25/13
--- OUTSIDE RECORDS SUMMARY | 2025-06-17 09:53 | XMS_ITS | Clinical Summary ---
Author Organization [facility] Address [address] [place], [place] [phone] Phone Care Team Providers Care Fiberglass Insulation Installer Name Role Phone Diana Romano MD Primary Care Provider [phone] Boubacar Cabrera MD Unavailable [phone] Martín De Luna MD Unavailable [phone] Allergies No known active allergies Medications atorvastatin [...] 01/31/20 25 Active glucagon (BAQSIMI) 3 mg/actuation [place] USE DIRECTRED FOR LOW BLOOD SUGAR Active [...] long-term current use of insulin Overview (04/11/2023): [facility] & Dr. 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 Continue to work on eating healthy & keeping active, as able. To call or send in BG with problems with glycemic control. Up to date with ophtho. nursing home current use of insulin Assessment & Plan (02/16/2025 1:45 PM EDT): Will maintain her humalog and lantus dosing Assessment & Plan (04/11/2023 8:48 PM EDT): Using Katie 2, some issues w/ supplies. Will forward note to [facility]. They should fax us with any paperwork [...] her glucose levels. [facility]. Labs ordered Assessment & Plan [...] her glucose levels. Up to date with [facility]. Sees podiatry. Will get recent labs from [facility] Assessment & Plan (10/24/2023 2:34 PM EST): [...] PM EDT Hospital Encounter [facility] [address] [place] [address] Winter Zaman MD Discharge Disposition: Home or Self Care 04/23/2025 10:20 AM EDT Office Visit [facility] [address] [place] [address] Winter Zaman MD Type 2 diabetes mellitus with peripheral neuropathy (Primary Dx); Type 2 diabetes mellitus with stage 4 chronic kidney disease, with long-term current use of insulin; Type 2 diabetes mellitus with retinopathy, with long-term current use of insulin, macular edema presence unspecified, unspecified laterality, unspecified retinopathy severity; Long-term current use of injectable noninsulin antidiabetic medication; nursing home current use of insulin; Essential hypertension from [...] 9:00 AM EDT Office Visit [facility] [address] [place] [address] [place] [address] Julienne Vivas PA-C [address] [place] [address] [email or web address] 10/23/2025 9:40 AM EST Office Visit [facility] [address] [place] [address] Julienne Vivas PA-C [address] [place] [address] [email or web address] 01/22/2026 10:00 AM EST Office Visit [facility] [address] [place] [address] Winter Zaman MD [address] [place] [address] Health Maintenance Due Date Last Done Comments [...] EDT) ALT 69(H) 0 - 40 U/L [facility] Blood 04/23/2025 11:1 7 AM EDT 04/23/2025 11:22 AM EDT Winter Zaman MD LAB BLOOD ORDERABLES F inal Result [address] [address] * (ABNORMAL) Aspartate aminotransferase (AST) (04/23/2025 11:17 AM EDT) AST 69(H) 0 - 37 U/L [facility] Blood 04/23/2025 11:1 7 AM EDT 04/23/2025 11:22 AM EDT Winter Zaman MD LAB BLOOD ORDERABLES F inal Result [address] [address] * (ABNORMAL) Hemoglobin A1c (04/23/2025 11:17 AM EDT) HEMOGLOBIN A1C 8.3(H) 4.3 - 5.8 % [facility] Blood 04/23/2025 11:1 7 AM EDT 04/23/2025 11:21 AM EDT Winter Zaman MD LAB BLOOD ORDERABLES F inal Result Performing Organization Address [facility] Co de Phone Number [address] [address] * (ABNORMAL) Basic metabolic panel (04/23/2025 11:17 AM EDT) SODIUM 137 133 - 146 mmol/L [facility] CHLORIDE 102 96 - 108 mmol/L [facility] POTASSIUM 4.3 3.3 - 5.1 mmol/L [facility] CO2 25 21 - 35 mmol/L [facility] BUN 46(H) 6 - 19 mg/dL [facility] CREATININE 2.40(H) 0.5 - 1.5 mg/dL [facility] GLUCOSE 238(H) 70 - 99 mg/dL [facility] CALCIUM 9.1 8.4 - 10.3 mg/dL [facility] EGFR 21(L) >59 mL/min/1.7 3m2 [facility] Comment:Estimated glomerular filtration rate calculated using the CKD-EPI refit equation. ANION GAP 14 10 - 20 mmol/L [facility] Blood 04/23/2025 11:1 7 AM EDT 04/23/2025 11:22 AM EDT Winter Zaman MD LAB BLOOD ORDERABLES F inal Result Performing Organization Address City/[facility]/ZIP Co de Phone Number [address] [address] from Last [address] [place] [address] [place] [address] [address] [place] [address] MEDICARE REPLACEMENT Care Teams Fiberglass Insulation Installer Relationship Specialty Start Date End Date Diana Romano MD [address] [place] [phone] PCP - General Internal Medicine 02/22/23 Boubacar Cabrera MD [address] [place] [address] Cardiology 10/24/23 Martín De Luna MD [address] [place] [address] Nephrology 04/23/25 Additional Source Comments The information contained in this document represents components of the legal health record. It is not the complete legal health record.[facility]
== END 2025-06-17 09:47 | disposition home or self-care (01) ==
LOC: HO.HKAS 09:23
PROVIDERS: PCP Internal Medicine; Visit Provider Internal Medicine Hypertension Specialist
DX: E11.22 Type 2 diabetes mellitus with diabetic chronic kidney disease (principal); N18.4 Chronic kidney disease, stage 4 (severe); Z79.4 Long term (current) use of insulin; N17.9 Acute kidney failure, unspecified; I12.9 Hypertensive chronic kidney disease with stage 1 through stage 4 chronic kidney disease, or unspecified chronic kidney disease; D63.1 Anemia in chronic kidney disease; N40.1 Benign prostatic hyperplasia with lower urinary tract symptoms
CPT/HCPCS: 99214

== ENCOUNTER → 2025-06-17 09:23 | Outpatient (BNVA) | payer OTHER, SELFPAY | PROVIDERS: PCP Internal Medicine; Visit Provider Internal Medicine Hypertension Specialist | DX: E11.22 Type 2 diabetes mellitus with diabetic chronic kidney disease (principal); N18.4 Chronic kidney disease, stage 4 (severe); N17.9 Acute kidney failure, unspecified; I10 Essential (primary) hypertension; D63.1 Anemia in chronic kidney disease; N39.0 Urinary tract infection, site not specified | CPT/HCPCS: 96372; 99212; Q5106 ==

== ENCOUNTER 2025-07-27 09:37 | Outpatient (REF) | payer OTHER, SELFPAY ==
--- OUTSIDE RECORDS SUMMARY | 2025-07-27 10:58 | XMS_ITS ---
Author Name Sera Houser NP Address [address] [place] [address] Phone [phone] [facility] Care Team Providers Care Machine Operator Farmworker Name Role Phone Sera Houser Unavailable [phone] [facility] Unavailable Unavailable Unavailable [phone] Unavailable Unavailable Unavailable Unavailable Unavailable [phone] Unavailable Unavailable [phone] Unavailable Unavailable [phone] Unavailable Unavailable [phone] Unavailable Unavailable [phone] Unavailable Unavailable [phone] Unavailable Unavailable [phone] Unavailable Unavailable [phone] Unavailable Unavailable [phone] [employer] Unavailable [phone] medline Unavailable [phone] [place], Diana Unavailable [phone] CHELSIE MEYER Unavailable [phone] Reason for Referral Not Available Allergies, adverse [...] No Data Available B-D PEN NDL SHRT [id number](03/19 6) SHAW USE DIRECTED TO ADMINISTER INSULIN [...] Active 2023-01-02 N/A Pt will f/u with [facility] to schedule OP f/u for discussion of Cholecystectomy. Encounters Encounters Type Facility Date of Service Diagnosis/Co mplaint Medication List Documented (1159F) [facility] Medication List Documented (1159F[place] [facility] Medication List Documented (1159F[place] [facility] Medication List Documented (1159F[place] [facility] [place] Medication List Documented (1159F[place] [facility] [place] Medication List Documented (1159F[place] [facility] [place] Medication List Documented (1159F) [facility] [place] 09/[place]/2022 Medication List Documented (1159F) [facility] [place] 09/[place]/2022 Type 2 diabetes mellitus wit h diabetic chronic kidney diseaseChronic kidney disease, stage 3 unspecifiedChronic obstructive pulmonary disease, unspecifiedHyp hrt & chr kdny dis w hrt fail and stg 1-4/unsp chr kdnyHeart failure, unspecifiedHyperlipidemia, unspecifiedMajor depressive disorder, single episode, unspecifiedUnspecified osteoarthritis, unspecified site No Data Available [facility] [place] 09/22/2022 Unspecified osteoarthritis, unspecified siteOther chronic painHeart failure, unspecifiedChronic obstructive pulmonary disease, unspecified No Data Available [facility] [place] 10/18/2022 Unspecified osteoarthritis, unspecified siteOther chronic pain No Data Available [facility] [place] 01/02/2023 Cholecystitis, unspecified No Data Available [facility] [place] 01/02/2023 Vital Signs Date of Collection Vitals [...] (do not use for phone, instead use [id number]) [id number] 2022-09-11 No Data Available No Data Availa ble No Data Available [id number] 2022-09-22 No Data Available No Data Available No Data Available [id number] 2022-10-18 No Data Available No Data Available No Data Available [id number] 2023-01-02 No Data Available No Data Available [...] Cholecystitis [K81.9 ]> Pt will f/u with [facility] to schedule OP f/u for discussion [...] hospital course: 12/20/22- 12/22/22Pt was seen at [facility] for chest and abdominal pain. She [...] BY MOUTH ONCE QHSB-D PEN NDL SHRT [id number](04/03) SHAW sig: USE DIRECTED TO ADMINISTER INSULIN [...]
--- OUTSIDE RECORDS SUMMARY | 2025-07-27 10:59 | XMS_ITS | Clinical Summary ---
Author Organization [facility] Address [address] [place], [place] [address] Phone Care Team Providers Care Hydraulic Lift Driver Name Role Phone Diana Romano MD Primary Care Provider [phone] Boubacar Cabrera MD Unavailable [phone] Martín De Luna MD Unavailable [phone] Allergies No known active allergies Medications atorvastatin [...] 01/31/20 25 Active glucagon (BAQSIMI) 3 mg/actuation Mulat USE DIRECTRED FOR LOW BLOOD SUGAR Active [...] long-term current use of insulin Overview (04/11/2023): [facility] & Dr. 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 Continue to work on eating healthy & keeping active, as able. To call or send in BG with problems with glycemic control. Up to date with ophtho. 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 Will forward note to Mel. They should fax us with any paperwork [...] her glucose levels. [facility]. Labs ordered Assessment & [...] her glucose levels. Up to date with [facility]. Sees podiatry. Will get recent labs from [facility] Assessment & Plan (10/24/2023 2:34 PM EST): [...] & Plan (10/24/2023 2:35 PM EST): Following w/ Dr. Magana. Assessment & Plan (04/11/2023 8:46 PM EDT): Following w/ Dr. Magana. BP under good control. Social History Tobacco Use Types Packs/Day Years [...] 9:00 AM EDT Office Visit [facility] [address] [place] [address] Julienne Vivas PA-C [address] [place] [address] 10/23/2025 9:40 AM EST Office Visit [facility] [address] [place] [address] Julienne Vivas PA-C [address] [place] [address] 01/22/2026 10:00 AM EST Office Visit [facility] [address] [place] [address] Winter Zaman MD [address] [place] [address] Health Maintenance Due Date Last Done Comments [...] 020, 09/19/2013, 11/05/2012 DIABETIC EYE EXAM 04/11/2023 INFLUENZA VACCINE (#1) 2025 , 07/15/2021, 08/18/2020, Additional history exists COVID-19 VACCINE ( season) 2025 HEMOGLOBIN A1C 07/24/2025 04/23/2025, 01/17, 10/24/2023, Additional [...] with peripheral neuropathy from Last 3 Months or Most Recently Relevant to Health Maintenance Results * (ABNORMAL) Hemoglobin A1c (04/23/2025 11:17 AM EDT) HEMOGLOBIN A1C 8.3(H) 4.3 - 5.8 % [facility] Blood 04/23/2025 11:1 7 AM EDT 04/23/2025 11:21 AM EDT Winter Zaman MD LAB BLOOD ORDERABLES F inal Result Performing Organization Address [facility] Co de Phone Number [address] [address] * (ABNORMAL) Basic metabolic panel (04/23/2025 11:17 AM EDT) SODIUM 137 133 - 146 mmol/L [facility] CHLORIDE 102 96 - 108 mmol/L [facility] POTASSIUM 4.3 3.3 - 5.1 mmol/L [facility] CO2 25 21 - 35 mmol/L [facility] BUN 46(H) 6 - 19 mg/dL [facility] CREATININE 2.40(H) 0.5 - 1.5 mg/dL [facility] GLUCOSE 238(H) 70 - 99 mg/dL [facility] CALCIUM 9.1 8.4 - 10.3 mg/dL [facility] EGFR 21(L) >59 mL/min/1.7 3m2 [facility] Comment:Estimated glomerular filtration rate calculated using the CKD-EPI refit equation. ANION GAP 14 10 - 20 mmol/L [facility] Blood 04/23/2025 11:1 7 AM EDT 04/23/2025 11:22 AM EDT Winter Zaman MD LAB BLOOD ORDERABLES F inal Result Performing Organization Address City/[facility]/ZIP Co de Phone Number [address] [address] from Last 3 Months or Most Recently Relevant to Health Maintenance [place] [address] [address] [address] [place] [address] MEDICARE REPLACEMENT [place] [id number] [place] [id number] Care Teams Hydraulic Lift Driver Relationship Specialty Start Date End Date Diana Romano MD 175 [facility] [address] [place] [id number] PCP - General Internal Medicine 02/22/23 Boubacar Cabrera MD [address] [facility] [address] [place] [address] Cardiology 10/24/23 Martín De Luna MD [address] [place] [address] Nephrology 04/23/25 Additional Source Comments The information contained in this document represents components of the legal health record. It is not the complete legal health record.[facility]
--- OUTSIDE RECORDS SUMMARY | 2025-07-27 10:59 | XMS_ITS | Clinical Summary ---
Author Organization 175 [facility] Address [address] [place] [address] Phone Care Team Providers Care Machine Loader Name Role Phone Dionisio Romano MD Primary Care Provider [phone] Allergies No known active allergies Medications docusate [...] route as needed (use as needed). 07/07/20 Active acetaminophen (TYLENOL) 500 mg tablet Take [...] 24 hr tabletIndicati ons:Coronary artery disease involving rampart coronary artery of rampart heart without angina pectoris Take 1 tablet (30 mg total) by mouth 1 (one) time each day before breakfast. Do not crush, chew, or split. 90 each 2 12/12/19 25 Active carvediloL (COREG) 12.5 mg tablet Take 1 tablet (12.5 mg total) by mouth 2 (two) times a day with meals. 180 tablet 3 12/16/19 25 Active NIFEdipine CC (ADALAT CC) 60 [...] immediately). 90 each 3 04/26/20 25 Active cholecalcifero l (VITAMIN D-3) 50 mcg (2,000 unit) capsule Take 1 capsule (2,000 Units total) by mouth 1 (one) time each day. 90 capsule 1 06/02/20 25 Active atorvastatin (LIPITOR) 80 mg tablet TAKE 1 TABLET(80 MG) BY MOUTH 1 TIME EACH DAY 90 tablet 1 07/01/20 25 Active methenamine hippurate (HIPREX) 1 gram tablet Take 1 tablet (1 g total) by mouth 2 (two) times a day. 60 tablet 1 07/03/20 25 Active atorvastatin (LIPITOR) 80 mg tablet TAKE 1 TABLET(80 MG) BY MOUTH 1 TIME EACH DAY 30 tablet 2 05/01/20 25 025 Discontinued methenamine hippurate (HIPREX) 1 gram tablet TAKE 1 TABLET BY MOUTH TWICE DAILY 60 tablet 1 05/05/20 25 025 Discontinued(Re order) Active Problems Problem Noted Date Diagnosed Date [...] echocardiogram in September 2024 while hospitalized at [facility] which was reviewed. Abdominal pain 12/09/2024 [...] Edema 09/25/2023 Coronary artery disease invo lving rampart coronary artery of rampart heart without angina pectoris 03/26/2023 Overview (09/04/2024): [...] emission tomography (PET) scan 02/05/2023 Atypical angina ([facility] V24) 12/27/2022 Overview (09/04/2024): Last Assessment & [...] mellitus type 2 wit h neurological manifestations ([facility] V24, [facility] V28) 02/13/2017 DJD (degenerative joint disease), cervical 02/13 DJD (degenerative joint disease), lumbar 017 Fatty liver 02/13/2017 GERD (gastroesophageal reflux disease) 7 Type 2 diabetes mellitus wit h cataract ([facility] V24, [facility] V28) 02/13/2017 Urinary incontinence 02/13/2017 Venous insufficiency [...] D deficiency 02/13/2017 Depression 02/08/2017 Diabetic neuropathy ([facility] V24, [facility] V28) 0 02/08/2017 Diabetic retinopathy ([facility] V24, [facility] V28) 02/08/2017 Hyperlipidemia 02/08/2017 Overview (09/04/2024): Last [...] Type Department Care Team Description 05/29/2025 Telephone [facility] [address] [place] [address] Michael Torrez MD from Last 3 Months Immunizations Name [...] PROCEDURE: HISTORICAL ROTATOR CUFF REPAIR APPENDECTOMY PROCEDURE: PA APPENDECTOMY CATARACT EXTRACTION PROCEDURE: HISTORICAL CATARACT REMOVAL OTHER SURGICAL HISTORY PROCEDURE: ---- OTHER ----; COMMENT: venous ligation LAPAROSCOPIC GASTRIC BANDING PROCEDURE: LAP ADJUSTABLE GASTRIC BAND CORONARY ARTERY BYPASS GRAFT Medical History Medical History Date Comments Diabetic neuropathy ([facility] V24, [facility] V28) 02/08/2017 DX:Diabetic neuropathy ([facility]) Hyperlipidemia 02/08/2017 DX:Hyperlipidemi a Hypertension 02/08/2017 DX:Hypertension Diabetic retinopathy ([facility] V24, [facility] V28) 02/08/2017 DX:Diabetic retinopathy ([facility] ) Depression 02/08/2017 DX:Depression History of adjustable gastric banding 02/13/2017 DX:History of adjustable gastric banding Diabetes mellitus type 2 wit h neurological manifestations ([facility] V24, [facility] V28) 02/13/2017 DX:Diabetes mellitus type 2 with neurological manifestations (HCC) Type 2 diabetes mellitus wit h eye manifestations ([facility] V24, [facility] V28) 02/13/2017 DX:Type 2 diabetes mellitus with eye manifestations (HCC) Type 2 diabetes mellitus wit h cataract ([facility] V24, [facility] V28) 02/13/2017 DX:Type 2 diabetes mellitus with [...] Insulin dependent type 2 destini betes mellitus ([facility] V24, [facility] V28) DX:Insulin depende nt type 2 diabetes mellitus (HCC) RUQ pain DX:RUQ pain Anemia Diabetes ([facility] V24, [facility] V28) Family History Medical History Relation Name [...] AM EDT Office Visit Internal Medicine - [place] [address] [facility] [address] [address] [place] [address] Dionisio Romano MD 175 [facility] [address] [place] [address] 10/01/2025 10:40 AM EST Office Visit [facility] - [facility] [address] [place] [address] Pancho Montes De Oca NP [address] [place] [address] [address] [place] [address] Health Maintenance Due Date Last Done Comments Zoster Vaccines (2 of 2) 01/23/2020 020, 09/19/2013, 11/05/2012 Falls Risk Assessment 10/28/2022 Medicare Annual Wellness Visit 10/28/2022 Social Influencers of Health Screening 10/28/2022 Diabetes: Annual Urine Albumin-Creatinine Ratio (uACR) 06/21/2024 06/21/2023 Diabetes: Annual Foot Exam 10/09/2024 10/09/2023 Diabetes: Annual Retina Eye Exam 05/12/2025 05/12/2024 Influenza Vaccine (#1) 2025 , 08/06/2023, 06/23/2022, Additional history exists Diabetes: Blood [...] Routine 06/21/2023 HEPATITIS C SCREENING Routine 02/27/2023 [facility] AXIAL [facility]LE[facility] Routine 12/05/2022 5:38 PM EST Encounter for screening for osteoporosis HEMOGLOBIN A1C Routine 06/01/2021 LIPID PANEL Routine 06/01/2021 from Last 3 Months or Most Recently Relevant to Health Maintenance Results * (ABNORMAL) Basic metabolic panel (12/16/2024 9:48 AM EST) Pathologist [facility] Sodium 137 133 - 145 mmol/L LAB CHEMISTRY METHOD 12/16/2024 2:56 PM [facility] Potassium 4.1 3.5 - 5.5 mmol/L LAB CHEMISTRY METHOD 12/16/2024 2:56 PM [facility] Chloride 104 96 - 110 mmol/L LAB CHEMISTRY METHOD 12/16/2024 2:56 PM [facility] CO2 29 21 - 32 mmol/L LAB CHEMISTRY METHOD 12/16/2024 2:56 PM [facility] Anion Gap 4 3 - 11 LAB CHEMISTRY METHOD 12/16/2024 2:56 PM [facility] Glucose 223(H) 70 - 100 mg/dL LAB CHEMISTRY METHOD 12/16/2024 2:56 PM [facility] BUN 36(H) 5 - 25 mg/dL LAB CHEMISTRY METHOD 12/16/2024 2:56 PM [facility] Creatinine 2.33(H) 0.50 - 1.10 mg/dL LAB CHEMISTRY METHOD 12/16/2024 2:56 PM EST [facility] eGFR 22(L) >=60 mL/min/1. 73m2 LAB CHEMISTRY METHOD 12/16/2024 2:56 PM EST [facility] Comment:Calculation based on the Chronic Kidney Disease Epidemiology Collaboration (CKD-EPI) equation refit without adjustment for race. BUN/Creatinine Ratio 15.5 LAB CHEMISTRY METHOD 12/16/2024 2:56 PM EST [facility] Calcium 9.2 8.5 - 10.5 mg/dL LAB CHEMISTRY METHOD 12/16/2024 2:56 PM EST [facility] Blood Venous blood specimen / Unknown Venipuncture / Unknown 12/16/2024 9:48 AM EST 12/16/2024 9:48 AM EST us Dionisio Romano MD LAB BLOOD ORDERABLES Final Res ult [facility] [address] [place] [address], [place] [phone] * [facility] Mammo Digital Diagnostic w Isaac bilat (11/13/2024 8:23 AM EST) Anatomical Region Laterality Modality Breast Bilateral Mammography 11/13/2024 8:11 AM EST Impressions 11/13/2024 8:21 AM EST Benign. BI-RADS CATEGORY: 2 - BENIGN RECOMMENDATION: Screening bilateral mammogram is recommended in 1 year. Mammo Location: [facility], [address] [place] [address] -------- FINAL REPORT -------- Dictated By: Daniel Gregory Dictated Date: 11/13/2024 08:11 ET Assigned Physician: Daniel Gregory Reviewed and Electronically Signed By: Daniel Gregory Signed Date: 11/13/2024 08:21 ET Workstation ID: [id number] Transcribed By: Self Edit Transcribed Date: 11/13/2024 [...] and CC projection is performed in the Apperianographe 2000-D unit. Computer aided detection utilizing the [...] MLO and CC projection is performed in theApperianographe 2000-D unit. Computer aided detection utilizing the [...] is recommended in 1 year. Mammo Location: [facility], [address] [place] [id number] -------- FINAL REPORT -------- Dictated By: Daniel Gregory Dictated Date: 11/13/2024 08:11 ET Assigned Physician: Daniel Gregory Reviewed and Electronically Signed By: Daniel Gregory Signed Date: 11/13/2024 08:21 ET Workstation ID: [id number] Transcribed By: Self Edit Transcribed Date: 11/13/2024 08:11 ET Dionisio Romano MD IMG BI PROCEDURES Final Result * Diabetes Eye Exam (05/12/2024) [facility] Diabetes: Annual Retina Eye Exam abstracted Historical Provider HEALTH MAINTENANCE Final Result * Colonoscopy (04/16/2024) [facility] Colonoscopy no interpretation , abstracted Anatomical Region Laterality Modality Other Historical Provider HEALTH MAINTENANCE Final Result * Diabetes Foot Exam (10/09/2023) [facility] Diabetes: Annual Foot Exam abstracted Result [facility] Historical Provider HEALTH MAINTENANCE Final Result * Urine Albumin Creatinine Ratio (06/21/2023) [facility] Urine Albumin Creatinine Ratio abstracted Historical Provider HEALTH MAINTENANCE Final Result * Hepatitis C Screening (02/27/2023) [facility] Hepatitis C Screening abstracted Historical Provider HEALTH MAINTENANCE Final Result * [facility] (12/05/2022 5:38 PM EST) Anatomical Region Laterality Modality Mammography 12/05/2022 11:1 5 AM EST Narrative 12/05/2022 5:38 PM EST [facility] Diagnostic Imaging Department [address] [place] [id number] Patient: TALIA WATTS D.O.B./Age/Sex: 1950 - 71 - F Unit#: [id number] Location/Status: SPDIMAM/REG CLI Mnemonic/Ordering Site: MAMDEXAAX/SPMAM Ordering Physician: DIONISIO ROMANO MD [facility] Dexa Axial Skeleton - 12/05/22 - History: Low estrogen state due to menopause. On omeprazole. Comparison: 08/10/14 Findings: Bone densitometry is performed utilizing dual energy x-ray absorptiometry (DXA) in the InGaugeIt unit. The lumbar spine and proximal femora [...] 0.1 percent. IMPRESSION: Normal bone mineral density. [id number] Dictating Physician: LATRICE SIMS MD Electronically Signed by: LATRICE SIMS MD Dic Date/Time: 12/05/221736 Sign date/Time: 12/05/221737 Procedure Note Latrice Sims MD - 12/21/2023 [facility] Diagnostic Imaging Department [address] [place], [place] [id number] Patient: TALIA WATTS./Age/Sex: 1950 - 71 - F Unit#: [id number] Location/Status: SPDIMAM/REG CLI Mnemonic/[facility]ing [facility] Ordering Physician: DIONISIO ROMANO MD [facility] Dexa Axial Skeleton - 12/05/22 - History: Low estrogen state due to menopause. On omeprazole. Comparison: 08/10/14 Findings: Bone densitometry is performed utilizing dual energy x-ray absorptiometry(DXA) in the InGaugeIt unit. The lumbar spine and proximal femora [...] 0.1 percent. IMPRESSION: Normal bone mineral density. [id number] Dictating Physician: LATRICE SIMS MD Electronically Signed by: LATRICE SIMS MD Dic Date/Time: 12/05/221736 Sign date/Time: 12/05/221737 Dionisio Romano MD IMG BI PROCEDURES Final Result * (ABNORMAL) Hemoglobin A1c (06/01/2021) [facility] Hemoglobin A1C 9.1(A) <=6.5 % Blood Venous blood specimen / Unknown Historical Provider LAB BLOOD ORDERABLES Adilia l Result * Lipid panel (06/01/2021) LDL/HDL Ratio 3 0 - 4 Triglycerides 125 0 - 150 mg/dL Cholesterol 142 0 - 200 mg/dL HDL 57 >=40 mg/dL LDL Cholesterol 60 0 - 100 mg/dL Blood Venous blood specimen / Unknown us Historical Provider LAB BLOOD ORDERABLES Adilia l Result from Last 3 Months or Most Recently Relevant to Health Maintenance Insurance [facility] MEDICARE Member Subscriber Plan / Payer (Ef fective 2023-Present) Name:Talia Watts Relation to Subscriber:Self Name:Talia Watts Payer ID:[id number] Group ID:[id number] Type:Not on file Address: [place] [address] [place] [phone] Care Teams Machine Loader Relationship Specialty Start Date End Date Dionisio Romano MD [address] [place] [phone] PCP - General Internal Medicine 02/25/13
[2025-07-27 14:35] LABS: Anion Gap 16 (12-20); Blood Urea Nitrogen 65 mg/dL (9-16); Calcium 9.4 mg/dL (8.4-10.2); Carbon Dioxide 22 mmol/L (22-29); Chloride 107 mmol/L (96-108); Estimated Glomerular Filt Rate 16; Potassium 5.1 mmol/L (3.3-5.1); Sodium 140 mmol/L (135-145)
== END 2025-07-27 09:38 | disposition home or self-care (01) ==
LOC: HO.HKASLDS 09:37
PROVIDERS: Visit Provider Internal Medicine Hypertension Specialist
DX: E11.22 Type 2 diabetes mellitus with diabetic chronic kidney disease (principal); N18.4 Chronic kidney disease, stage 4 (severe); D63.1 Anemia in chronic kidney disease
CPT/HCPCS: 36415; 80048

== ENCOUNTER 2025-07-29 09:19 | Outpatient (REF) | payer OTHER, SELFPAY ==
[2025-07-29 13:58] LABS: Hematocrit 27.9 % (37.0-47.0); Hemoglobin 9.2 g/dl (12.0-16.0); Mean Corpuscular HGB Conc 33.0 g/dl (31.0-35.0); Mean Corpuscular Hemoglobin 28.6 pg (27.0-33.0); Mean Corpuscular Volume 86.6 fL (80.0-98.0); NRBC Abs Auto 0.000 X10*3/uL (0.0-0.012); NRBC Pct Auto 0.0 /100WBC (0.0-0.2); Platelet Count 256 X10*3/uL (160-400); Red Blood Count 3.22 X10*6/uL (4.20-5.50); White Blood Count 7.0 X10*3/uL (4.8-10.8)
== END 2025-07-29 09:20 | disposition home or self-care (01) ==
LOC: HO.HKASLDS 09:19
PROVIDERS: PCP Internal Medicine; Visit Provider Internal Medicine Hypertension Specialist
DX: E11.22 Type 2 diabetes mellitus with diabetic chronic kidney disease (principal); N18.4 Chronic kidney disease, stage 4 (severe); N17.9 Acute kidney failure, unspecified; I12.9 Hypertensive chronic kidney disease with stage 1 through stage 4 chronic kidney disease, or unspecified chronic kidney disease; D63.1 Anemia in chronic kidney disease; Z79.4 Long term (current) use of insulin
CPT/HCPCS: 36415; 85027; 96372; 99212; Q5106

== ENCOUNTER 2025-07-29 09:19 | Outpatient (AMB) | payer OTHER, SELFPAY ==
[2025-07-29 09:29] VITALS: BP 140/60; PULSE 70; O2SAT 99; BMI 34.2
--- NOTE | 2025-07-29 09:29 | HO.NEPHOV ---
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 Accompanied by: Spouse Allergies No Known Allergies Allergy (Verified 07/29/25 09:31) Medication List - Last Reconciled 07/29/25 by Martín De Luna MD albuterol sulfate 90 mcg/actuation (ProAir HFA) 2 puffs inhalation Q6H PRN albuterol sulfate 90 mcg/actuation (ProAir RespiClick) 1 inh inhalation Q4-6H PRN aspirin 81 mg PO DAILY atorvastatin 80 mg PO DAILY carvedilol 12.5 mg PO BID cholecalciferol (vitamin D3) 50 mcg PO DAILY ferrous sulfate (FeroSul) 325 mg PO DAILY furosemide 80 mg PO DAILY hydralazine 75 mg (1.5 x 50 mg) PO TID insulin glargine (Lantus Solostar U-100 Insulin) 62 units subcut DAILY insulin lispro (Humalog KwikPen (U-100) Insulin) subcut metolazone 2.5 mg PO DAILY PRN nifedipine ER mg PO DAILY pantoprazole 40 mg PO DAILY potassium chloride ER 10 mEq PO DAILY HPI Comments Details: 74-year-old pleasant woman with a history of diabetes mellitus for more than 35 years who was at chronic kidney disease. She is history of congestive heart failure and was on Entresto Lasix and furosemide. Back in November of 2023 creatinine was 2.6 with EGFR of 19 mL/minute. She is currently in nifedipine 60mg daily, hydralazine 75mg TID, carvedilol 12.5mg BID and furosemide 40mg PO BID She continues to have back pain. She has chronic shortness of breath (reports since prior to heart surgery last year which she states did not really help her breathing much. States at rest is ok, with exertion continues to have some dyspnea chronically). No nausea, vomiting. She has leg edema. Wears compression stockings. No weight loss. All other systems were reviewed History of congestive heart failure with preserved ejection fraction. 09/10/24 reports shortness of breath for a while now reports a year ago had open heart surgery, reports before then had it but surgery didn't make it better and has continued blood pressure medications- reports has not taken yet this a.m. Reports SBP at home is usually in 130s. 10/15/2024. Milla was hospitalized about a week ago. She had acute kidney injury superimposed on CKD with fungemia. Serum creatinine peaked more than 4. Diuretics were held. Renal function gradually improved. She is currently not on diuretics creatinine is around 3. She has significant edema. No shortness of breath at present. Accompanied by her family member. She had recently undergone laparoscopic cholecystectomy for symptomatic cholelithiasis. During this hospitalization faustina was negative. He has been catheter was inserted 1121. She is currently on Micafungin and Zosyn 12/03/24; BP was low ; She was hospitalized @ [facility] [place]; Nov 2023 : Cr 2.2 ;Nov 2024 Cr 2.2 with eGFR of 22 ml/mt 01/14/25: Recently in ER for a viral infection; Resolved 02/04/25 Leg edema increased;Received IV Lasix 03/04/25 ;Here for follow up;Seen last week by for worsening renal function ;Diuretics were decreased ;She feels better Edema has improved ;Cr is still up 04/01/25 74-year-old female presenting for the ongoing management of chronic kidney disease. She reports an improvement in her kidney function, from 14% to 19%, over recent evaluations. There is ongoing management of her hypertension and diabetes, with noted dietary influences on her blood glucose control. During a recent vacation, she experienced fluctuations in her blood glucose levels due to less consistent insulin use. The patient reports continued management of edema in her lower extremities, utilizing diuretics and support stockings. Recent anemia was addressed with a corrective injection following a hemoglobin report at 9.0, with close monitoring planned. She describes an increased activity level during a vacation, which she believes positively impacted her overall condition. Her breathing remains stable, and she maintains a stable weight. 04/29/25: No new issues. Here for Retacrit. 05/20/25;Still with fatigue;No dyspnea; 06/17/25 : Here for KIARA 07/29/25 ;Overall doing well. No dyspnea. Weight is stable. [facility] Medical History Chronic kidney disease Degenerative joint disease (DJD) of hip Cataract Bunion Fatty liver DJD (degenerative joint disease), lumbar DJD (degenerative joint disease), cervical Diabetes mellitus type 2 with neurological manifestations Vitamin D deficiency Urinary incontinence Allergic rhinitis GERD (gastroesophageal reflux disease) Depression Diabetic retinopathy Hypertension Hyperlipidemia Diabetic nephropathy Surgical History History of cholecystectomy (~09/2024) History of open heart surgery (~02/2023) History of adjustable gastric banding Social History Patient Tobacco Use Status: Never used Tobacco Physical Exam Vital Signs: Last Vital Signs Pulse 70 07/29/25 09:29 BP 140/60 H 07/29/25 09:29 Pulse Ox 99 07/29/25 09:29 Oxygen Delivery Method Room Air 07/29/25 09:29 BMI result Body Mass Index 34.2 Neck Neck: Yes supple Resp Auscultation: clear to auscultation bilaterally Cardio Palpation: no palpable S3 Heart sounds: no rubs GI Palpation (GI): Soft to palpation Auscultation: normal bowel sounds Neuro Motor exam (neuro): no asterixis Extrem General: Yes edema Office Meds epoetin disha-epbx 20,000 unit/mL injection solution Performing Provider: Martín De Luna MD Performing Location: [facility] [place] [facility] Administered by: Martín De Luna MD on 07/29/25 09:42 Dose Route Admin Location Dispensed Lot Number Expiration Date [facility] Chain Machine [employer] 20,000 unit subcut left arm 1 mL [id number] 01/16/27 9454-3343-76 [employer] Total Dispensed Waste 1 mL 0 % Results Reviewed Nephrology Results: Hgb, (12.0-16.0) 9.2 g/dl L 07/29/25 WBC, (4.8-10.8) 7.0 X10*3/uL 07/29/25 Plt Count, (160-400) 256 X10*3/uL 07/29/25 Sodium, (135-145) 140 mmol/L 07/27/25 Potassium, (3.3-5.1) 5.1 mmol/L 07/27/25 Chloride, (96-108) 107 mmol/L 07/27/25 Carbon Dioxide, (22-29) 22 mmol/L 07/27/25 BUN, (9-16) 65 mg/dL H 07/27/25 Creatinine, (0.5-1.4) 2.86 mg/dL H 07/27/25 Calcium, (8.4-10.2) 9.4 mg/dL Δ 07/27/25 Assessment & Plan Assessment & Plan (1) Diabetes mellitus with chronic kidney disease: Code(s): E11.22 - Type 2 diabetes mellitus with diabetic chronic kidney disease Category: Medical Qualifiers: Chronic kidney disease stage: stage 4 (severe) 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 insulin use: with intermediate use Diabetes mellitus type: type 2 Qualified Code(s): E11.22 - Type 2 diabetes mellitus with diabetic chronic kidney disease; N18.4 - Chronic kidney disease, stage 4 (severe); Z79.4 - middle or intermediate school principal (current) use of insulin (2) JERZY (acute kidney injury): Code(s): N17.9 - Acute kidney failure, unspecified Category: Medical (3) Hypertension: Code(s): I10 - Essential (primary) hypertension Category: Medical Qualifiers: Hypertension type: primary hypertension Qualified Code(s): I10 - Essential (primary) hypertension (4) Anemia in chronic kidney disease: Code(s): N18.9 - Chronic kidney disease, unspecified; D63.1 - Anemia in chronic kidney disease Category: Medical Qualifiers: Chronic kidney disease stage: stage 4 (GFR 15-29) Qualified Code(s): N18.4 - Chronic kidney disease, stage 4 (severe); D63.1 - Anemia in chronic kidney disease (5) Chronic kidney disease: Code(s): N18.9 - Chronic kidney disease, unspecified Category: Medical Qualifiers: Chronic kidney disease stage: stage 4 (severe) Qualified Code(s): N18.4 - Chronic kidney disease, stage 4 (severe) (6) CKD stage 4 due to type 2 diabetes mellitus: Code(s): E11.22 - Type 2 diabetes mellitus with diabetic chronic kidney disease; N18.4 - Chronic kidney disease, stage 4 (severe) Category: Medical Plan 74-year-old woman with a history of longstanding diabetes mellitus and coronary disease with stage IV CKD. CKD is most likely due to underlying diabetic kidney disease. Nondiabetic causes seem unlikely based on the clinical picture. Cr is better Down to 2.51 as of 03/31/25 ( drop in GFR was most likely from hypoperfusion) Keep on lower dose of diuretics for now and reassess Maintain A1c less than 7%. She is on adequate dose of diuretics at this time. She should stay on low-sodium diet which she is working on. She will benefit from SGLT2 inhibitors. Hypertension. 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 Iron stores are adequate. Administered Retacrit 74522 U administered subcutaneously today into right arm secondary hyperparathyroidism Mild elevation PTH. She will follow this and start her on vitamin D3 analog as needed. Discussed Dialysis options Has been referred for home dialysis evaluation She wants to think about it! 07/29/25: NO change in medications Adminstered Retacrit 80120 U SQ ; Hgb 9.2 BP acceptable. Orders: Orders Basic Metabolic Panel 3 Weeks D63.1 - Anemia in chronic kidney disease, E11.22 - Type 2 diabetes mellitus with diabetic chronic kidney disease, N18.4 - Chronic kidney disease, stage 4 (severe) Complete Blood Count no Diff 3 Weeks D63.1 - Anemia in chronic kidney disease, E11.22 - Type 2 diabetes mellitus with diabetic chronic kidney disease, N18.4 - Chronic kidney disease, stage 4 (severe) Complete Blood Count no Diff 07/29/25 D63.1 - Anemia in chronic kidney disease, N18.4 - Chronic kidney disease, stage 4 (severe) AMB Epoetin Injection Practice Supplied 07/29/25 N40.1 - Benign prostatic hyperplasia with lower urinary tract symptoms Coding Level of Care Code Est Pt Level 4 (48944) Diagnoses Type 2 diabetes mellitus with stage 4 chronic kidney disease, with long-term current use of insulin E11.22; N18.4; Z79.4 Chronic kidney disease stage: stage 4 (severe) 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
--- OUTSIDE RECORDS SUMMARY | 2025-07-29 11:06 | XMS_ITS ---
Author Name Sera Houser NP Address [address] [place] [address] Phone [phone] [facility] Care Team Providers Care Starchmaker Name Role Phone Sera Houser Unavailable [phone] [facility] Unavailable Unavailable Unavailable [phone] Unavailable Unavailable Unavailable Unavailable Unavailable [phone] Unavailable Unavailable [phone] Unavailable Unavailable [phone] Unavailable Unavailable [phone] Unavailable Unavailable [phone] Unavailable Unavailable [phone] Unavailable Unavailable [phone] Unavailable Unavailable [phone] Unavailable Unavailable [phone] [employer] Unavailable [phone] [facility] Unavailable [phone] [place], Diana Unavailable [phone] CHELSIE MEYER Unavailable [phone] Reason for Referral Not Available Allergies, adverse [...] No Data Available B-D PEN NDL SHRT [id number](03/19 6) SHAW USE DIRECTED TO ADMINISTER INSULIN [...] Active 2023-01-02 N/A Pt will f/u with [facility] to schedule OP f/u for discussion of Cholecystectomy. Encounters Encounters Type Facility Date of Service Diagnosis/Co mplaint Medication List Documented (1159F) [facility] ([place]/20[place] Medication List Documented (1159F) [facility] Medication List Documented (1159F) [facility] Medication List Documented (1159F) [facility] Medication List Documented (1159F) [facility] Medication List Documented (1159F) [facility]20[place] Medication List Documented (1159F) [facility], ([place]) 09/11/2022 Medication List Documented (1159F) [facility]2022 Type 2 diabetes mellitus wit h diabetic chronic kidney diseaseChronic kidney disease, stage 3 unspecifiedChronic obstructive pulmonary disease, unspecifiedHyp hrt & chr kdny dis w hrt fail and stg 1-4/unsp chr kdnyHeart failure, unspecifiedHyperlipidemia, unspecifiedMajor depressive disorder, single episode, unspecifiedUnspecified osteoarthritis, unspecified site No Data Available [facility], ([place] 09/22/2022 Unspecified osteoarthritis, unspecified siteOther chronic painHeart failure, unspecifiedChronic obstructive pulmonary disease, unspecified No Data Available [facility] 10/18/2022 Unspecified osteoarthritis, unspecified siteOther chronic pain No Data Available [facility] 01/02/2023 Cholecystitis, unspecified No Data Available [facility] 01/02/2023 Vital Signs Date of Collection Vitals 2022-09-11 07:40:43 Height - 165.1 cmWei ght - 109.32 kgBody Mass Index (BMI) - 40.1 kg/m2BP Diastolic - 84.0 mm[Hg]BP Systolic - 170.0 mm[Hg]Heart Rate - 88.0 /min Social History Social History Social History Observation Description Effec tive Time Current Smoking Status Never smoker 2025-07-20 0 Sex Female History of Procedures Procedures [...] (do not use for phone, instead use [id number]) [id number] 2022-09-11 No Data Available No Data Availa ble No Data Available [id number] 2022-09-22 No Data Available No Data Available No Data Available [id number] 2022-10-18 No Data Available No Data Available No Data Available [id number] 2023-01-02 No Data Available No Data Available [...] Cholecystitis [K81.9 ]> Pt will f/u with [facility] to schedule OP f/u for discussion [...] hospital course: 12/20/22- 12/22/22Pt was seen at [facility] for chest and abdominal pain. She [...] BY MOUTH ONCE QHSB-D PEN NDL SHRT [id number](04/03) SHAW sig: USE DIRECTED TO ADMINISTER INSULIN [...]
--- OUTSIDE RECORDS SUMMARY | 2025-07-29 11:06 | XMS_ITS | Clinical Summary ---
Author Organization 175 [facility] Address [address] [place] [address] Phone Care Team Providers Care Wafer Abrading Machine Tender Name Role Phone Dionisio Romano MD Primary Care Provider [phone] Allergies No known active allergies Medications docusate [...] 24 hr tabletIndicati ons:Coronary artery disease involving nisqually coronary artery of nisqually heart without angina pectoris Take 1 tablet [...] echocardiogram in September 2024 while hospitalized at [facility] which was reviewed. Abdominal pain 12/09/2024 [...] Edema 09/25/2023 Coronary artery disease invo lving nisqually coronary artery of nisqually heart without angina pectoris 03/26/2023 Overview (09/04/2024): [...] emission tomography (PET) scan 02/05/2023 Atypical angina ([facility] V24) 12/27/2022 Overview (09/04/2024): Last [...] mellitus type 2 wit h neurological manifestations ([facility] V24, [facility] V28) 02/13/2017 DJD (degenerative joint disease), cervical 02/13 DJD (degenerative joint disease), lumbar 017 Fatty liver 02/13/2017 GERD (gastroesophageal reflux disease) 7 Type 2 diabetes mellitus wit h cataract ([facility] V24, [facility] V28) 02/13/2017 Urinary incontinence 02/13/2017 [...] D deficiency 02/13/2017 Depression 02/08/2017 Diabetic neuropathy ([facility] V24, [facility] V28) 0 02/08/2017 Diabetic retinopathy ([facility] V24, [facility] V28) 02/08/2017 Hyperlipidemia 02/08/2017 Overview [...] Type Department Care Team Description 05/29/2025 Telephone [facility] [address] [place] [address] Michael Torrez MD from Last [...] PROCEDURE: HISTORICAL ROTATOR CUFF REPAIR APPENDECTOMY PROCEDURE: TX APPENDECTOMY CATARACT EXTRACTION PROCEDURE: HISTORICAL CATARACT REMOVAL OTHER SURGICAL HISTORY PROCEDURE: ---- OTHER ----; COMMENT: venous ligation LAPAROSCOPIC GASTRIC BANDING PROCEDURE: LAP ADJUSTABLE GASTRIC BAND CORONARY ARTERY BYPASS GRAFT Medical History Medical History Date Comments Diabetic neuropathy ([facility] V24, [facility] V28) 02/08/2017 DX:Diabetic neuropathy ([facility]) Hyperlipidemia 02/08/2017 DX:Hyperlipidemi a Hypertension 02/08/2017 DX:Hypertension Diabetic retinopathy ([facility] V24, [facility] V28) 02/08/2017 DX:Diabetic retinopathy ([facility] ) Depression 02/08/2017 DX:Depression History of adjustable gastric banding 02/13/2017 DX:History of adjustable gastric banding Diabetes mellitus type 2 wit h neurological manifestations ([facility] V24, [facility] V28) 02/13/2017 DX:Diabetes mellitus type 2 with neurological manifestations (HCC) Type 2 diabetes mellitus wit h eye manifestations ([facility] V24, [facility] V28) 02/13/2017 DX:Type 2 diabetes mellitus with eye manifestations (HCC) Type 2 diabetes mellitus wit h cataract ([facility] V24, [facility] V28) 02/13/2017 DX:Type 2 diabetes [...] Insulin dependent type 2 destini betes mellitus ([facility] V24, [facility] V28) DX:Insulin depende nt type 2 diabetes mellitus (HCC) RUQ pain DX:RUQ pain Anemia Diabetes ([facility], [facility]) Family History Medical History Relation [...] AM EDT Office Visit Internal Medicine - [place] [address] [place] [address] Dionisio Romano MD [address] [place] [address] 10/01/2025 10:40 AM EST Office Visit [facility] [address] [place] [address] Pancho Montes De Oca NP [address] [place] [address] [address] [place] [address] Health Maintenance Due Date Last Done Comments Zoster Vaccines (2 of 2) 01/23/2020 020, 09/19/2013, 11/05/2012 Falls Risk Assessment 10/28/2022 Medicare Annual Wellness Visit 10/28/2022 Social Influencers of Health Screening 10/28/2022 Diabetes: Annual Urine Albumin-Creatinine Ratio (uACR) 06/21/2024 06/21/2023 Diabetes: Annual Foot Exam 10/09/2024 10/09/2023 Influenza Vaccine (#1) 2025 , 08/06/2023, 06/23/2022, Additional history exists Diabetes: Blood Sugar Control Test (HGBA1C) 08/02/2025 01/30/2025, 06/01/2021 COVID-19 Vaccine (7 - Pfizer risk 2023- season) 2025 03/12/2025, 08/06/2023, 06/23/2022, Additional history exists Diabetes: Annual GFR (Glomerular Filtration Rate) 12/16/2025 12/16/2024, 03/05/2024 Hypertension/CHF/CAD Annual BMP Blood Test 12/16/2025 12/16/2024, 03/05/2024 Diabetes: Annual Retina Eye Exam 07/22/2026 07/22/2025, 05/12/2024 Breast Cancer Screening 11/13/2026 11/13/20, 05/07/2024, 11/05/2023, [...] Name Priority Date/Time Associated Diagnosis Comments EXTERNAL DIABETIC RETINA EYE EXAM 07/22/2025 BASIC METABOLIC PANEL Routine 12/16/2024 9:48 AM EST 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 V24, CMS/HCC V28) Primary hypertension MG MAMMO DIGITAL DIAGNOSTIC W ISAAC BILAT Routine 11/13/2024 8:23 AM EST Category 3 mammography result with short follow-up interval suggested for probably benign finding COLONOSCOPY Routine 04/16/2024 DIABETES FOOT EXAM Routine 10/09/2023 URINE ALBUMIN CREATININE RATIO Routine 06/21/2023 HEPATITIS C SCREENING Routine 02/27/2023 [facility] DEXA AXIAL SKELETON Routine 12/05/2022 5:38 PM EST Encounter for screening for osteoporosis HEMOGLOBIN A1C Routine 06/01/2021 LIPID PANEL Routine 06/01/2021 from Last 3 Months or Most Recently Relevant to Health Maintenance Results * External Diabetic Retina Eye Exam Report (07/22/2025) Anatomical Region Laterality Modality Ultrasound us Provider [facility] US PROCEDURES Final Result * (ABNORMAL) Basic metabolic panel (12/16/2024 9:48 AM EST) Sodium 137 133 - 145 mmol/L LAB CHEMISTRY METHOD 12/16/2024 2:56 PM [facility] Potassium 4.1 3.5 - 5.5 mmol/L LAB CHEMISTRY METHOD 12/16/2024 2:56 PM [facility] Chloride 104 96 - 110 mmol/L LAB CHEMISTRY METHOD 12/16/2024 2:56 PM [facility] CO2 29 21 - 32 mmol/L LAB CHEMISTRY METHOD 12/16/2024 2:56 PM [facility] Anion Gap 4 3 - 11 LAB CHEMISTRY METHOD 12/16/2024 2:56 PM [facility] Glucose 223(H) 70 - 100 mg/dL LAB CHEMISTRY METHOD 12/16/2024 2:56 PM [facility] BUN 36(H) 5 - 25 mg/dL LAB CHEMISTRY METHOD 12/16/2024 2:56 PM EST [facility] Creatinine 2.33(H) 0.50 - 1.10 mg/dL LAB CHEMISTRY METHOD 12/16/2024 2:56 PM EST [facility] eGFR 22(L) >=60 mL/min/1. 73m2 LAB CHEMISTRY METHOD 12/16/2024 2:56 PM EST [facility] Comment:Calculation based on the Chronic Kidney Disease Epidemiology Collaboration (CKD-EPI) equation refit without adjustment for race. BUN/Creatinine Ratio 15.5 LAB CHEMISTRY METHOD 12/16/2024 2:56 PM EST [facility] Calcium 9.2 8.5 - 10.5 mg/dL LAB CHEMISTRY METHOD 12/16/2024 2:56 PM EST [facility] Blood Venous blood specimen / Unknown Venipuncture / Unknown 12/16/2024 9:48 AM EST 12/16/2024 9:48 AM EST us Dionisio Romano MD LAB BLOOD ORDERABLES Final Res ult [facility] [address] [place] [address], * MG Mammo Digital Diagnostic w Isaac bilat (11/13/2024 8:23 AM EST) Anatomical Region Laterality Modality Breast Bilateral Mammography 11/13/2024 8:11 AM EST Impressions 11/13/2024 8:21 AM EST Benign. BI-RADS CATEGORY: 2 - BENIGN RECOMMENDATION: Screening bilateral mammogram is recommended in 1 year. Mammo Location: [facility], [address] [place] [address] -------- FINAL REPORT -------- Dictated By: Daniel Gregory Dictated Date: 11/13/2024 08:11 ET Assigned Physician: Daniel Gregory Reviewed and Electronically Signed By: Daniel Gregory Signed Date: 11/13/2024 08:21 ET Workstation ID: [id number] Transcribed By: Self Edit Transcribed Date: 11/13/2024 [...] and CC projection is performed in the [employer]and[employer] 2000-D unit. Computer aided detection utilizing the [...] MLO and CC projection is performed in the[employer]Blaze 2000-D unit. Computer aided detection utilizing the [...] is recommended in 1 year. Mammo Location: [facility], [facility], [address] [place] [address] -------- FINAL REPORT -------- Dictated By: Daniel Gregory Dictated Date: 11/13/2024 08:11 ET Assigned Physician: Daniel Gregory Reviewed and Electronically Signed By: Daniel Gregory Signed Date: 11/13/2024 08:21 ET Workstation ID: [id number] Transcribed By: Self Edit Transcribed Date: 11/13/2024 08:11 ET Dionisio Romano MD IMG BI PROCEDURES Final Result * Colonoscopy (04/16/2024) [facility] Colonoscopy no interpretation , abstracted Anatomical Region Laterality Modality Other Historical Provider HEALTH MAINTENANCE Final Result * Diabetes Foot Exam (10/09/2023) [facility] Diabetes: Annual Foot Exam abstracted Historical Provider HEALTH MAINTENANCE Final Result * Urine Albumin Creatinine Ratio (06/21/2023) [facility] Urine Albumin Creatinine Ratio abstracted Historical Provider HEALTH MAINTENANCE Final Result * Hepatitis C Screening (02/27/2023) [facility] Hepatitis C Screening abstracted Historical Provider HEALTH MAINTENANCE Final Result * [facility] DEXA AXIAL SKELETON (12/05/2022 5:38 PM EST) Anatomical Region Laterality Modality Mammography 12/05/2022 11:1 5 AM EST Narrative 12/05/2022 5:38 PM EST [facility] Diagnostic Imaging Department [address] [place] [address] Patient: TALIA WATTS D.O.B./Age/Sex: 1950 - 71 - F Unit#: [id number] Location/Status: SPDIMAM/REG CLI Mnemonic/Ordering Site: MAMDEXAAX/SPMAM Ordering Physician: DIONISIO ROMANO MD [facility] Dexa Axial Skeleton - 12/05/22 - History: Low estrogen state due to menopause. On omeprazole. Comparison: 08/10/14 Findings: Bone densitometry is performed utilizing dual energy x-ray absorptiometry (DXA) in the [employer] unit. The lumbar spine and proximal femora [...] 0.1 percent. IMPRESSION: Normal bone mineral density. [id number] Dictating Physician: LATRICE SIMS MD Electronically Signed by: LATRICE SIMS MD Dic Date/Time: 12/05/221736 Sign date/Time: 12/05/221737 Procedure Note Latrice Sims MD - 12/21/2023 [facility] Diagnostic Imaging Department [address] [place] [address] Patient: TALIA WATTS./Age/Sex: 1950 - 71 - F Unit#: [id number] Location/Status: SPDIMAM/REG CLI Mnemonic[facility] Ordering Physician: DIONISIO ROMANO MD [facility] Dexa Axial Skeleton - 12/05/22 - History: Low estrogen state due to menopause. On omeprazole. Comparison: 08/10/14 Findings: Bone densitometry is performed utilizing dual energy x-ray absorptiometry(DXA) in the [employer] unit. The lumbar spine and proximal femora [...] 0.1 percent. IMPRESSION: Normal bone mineral density. [id number] Dictating Physician: LATRICE SIMS MD Electronically Signed by: LATRICE SIMS MD Dic Date/Time: 12/05/221736 Sign date/Time: 12/05/221737 Dionisio Romaon MD IMG BI PROCEDURES Final Result * (ABNORMAL) Hemoglobin A1c (06/01/2021) Pathologist [facility] Hemoglobin A1C 9.1(A) <=6.5 % Blood Venous blood specimen / Unknown [facility] Provider LAB BLOOD ORDERABLES Adilia l Result [...] ID:[id number] Group ID:[id number] Type:Not on file Address: [place] [address] [address] [address] Care Teams Wafer Abrading Machine Tender Relationship Specialty Start Date End Date Dionisio Romano MD [address] [place] [address] PCP - General Internal Medicine 02/25/13
--- OUTSIDE RECORDS SUMMARY | 2025-07-29 11:06 | XMS_ITS | Clinical Summary ---
Author Organization [facility] Address [address] [place], [place] [id number] Phone Care Team Providers Care Needle Control Cheniller Name Role Phone Diana Romano MD Primary Care Provider [phone] Boubacar Cabrera MD Unavailable [phone] Martín De Luna MD Unavailable [phone] Allergies No known active allergies Medications atorvastatin [...] 01/31/20 25 Active glucagon (BAQSIMI) 3 mg/actuation [place] USE DIRECTRED FOR LOW BLOOD SUGAR Active [...] long-term current use of insulin Overview (04/11/2023): [facility] & Dr. Nielson Assessment & [...] to cut back on humalog when eating oracle pl sql developer meals and/or when she will be more active after. Continue to work on eating healthy & keeping active, as able. To call or send in BG with problems with glycemic control. Up to date with ophtho. long-term current use of insulin Assessment & Plan (02/16/2025 1:45 PM EDT): Will maintain her humalog and lantus dosing Assessment & Plan (04/11/2023 8:48 PM EDT): Using Katie 2, some issues w/ supplies. Will forward note to [facility]. They should fax us with any paperwork [...] her glucose levels. Up to date with klaudia. Sees podiatry. Will get recent labs from [facility] Assessment & Plan (10/24/2023 2:34 PM EST): [...] her glucose levels. Up to date with klaudia. Assessment & Plan (04/11/2023 8:45 PM EDT): [...] & Plan (05/09/2024 3:16 PM EDT): Following w/ Dr. Magana. Assessment & Plan (10/24/2023 2:35 PM EST): Following w/ Dr. Magana. Assessment & Plan (04/11/2023 8:46 PM EDT): Following gera/ Dr. Magana. BP under good control. Social [...] AM EDT Office Visit [facility] [address] [place] [address] Julienne Vivas PA-C [address] [place] [address] 10/23/2025 9:40 AM EST Office Visit [facility] [address] [place] [address] Julienne Vivas PA-C [address] [place] [address] 01/22/2026 10:00 AM EST Office Visit [facility] [address] [place] [address] Winter Zaman MD [address] [place] [address] Health Maintenance Due Date Last Done Comments [...] HEMOGLOBIN A1C 8.3(H) 4.3 - 5.8 % [facility] Blood 04/23/2025 11:1 7 AM EDT 04/23/2025 11:21 AM EDT Winter Zaman MD LAB BLOOD ORDERABLES F inal Result Performing Organization Address City/[facility]/ZIP Co de Phone Number [address] [address] * (ABNORMAL) Basic metabolic panel (04/23/2025 11:17 AM EDT) SODIUM 137 133 - 146 mmol/L [facility] CHLORIDE 102 96 - 108 mmol/L [facility] POTASSIUM 4.3 3.3 - 5.1 mmol/L [facility] CO2 25 21 - 35 mmol/L [facility] BUN 46(H) 6 - 19 mg/dL [facility] CREATININE 2.40(H) 0.5 - 1.5 mg/dL [facility] GLUCOSE 238(H) 70 - 99 mg/dL [facility] CALCIUM 9.1 8.4 - 10.3 mg/dL [facility] EGFR 21(L) >59 mL/min/1.7 3m2 [facility] Comment:Estimated glomerular filtration rate calculated using the CKD-EPI refit equation. ANION GAP 14 10 - 20 mmol/L [facility] Blood 04/23/2025 11:1 7 AM EDT 04/23/2025 11:22 AM EDT us Winter Zaman MD LAB BLOOD ORDERABLES F inal Result Performing Organization Address City/[facility]/ZIP Co de Phone Number [address] [address] from Last 3 Months or Most Recently Relevant to Health Maintenance Insurance MEDICARE REPLACEMENT MEDICARE REPLACEMENT Care Teams Needle Control Cheniller Relationship Specialty Start Date End Date Diana Romano MD [address] [place] [phone] PCP - General Internal Medicine 02/22/23 Boubacar Cabrera MD [address] [facility] [address] [place] [address] Cardiology 10/24/23 Martín De Luna MD 300 [facility] [address] [place] [address] Nephrology 04/23/25 Additional Source Comments The information contained in this document represents components of the legal health record. It is not the complete legal health record.[facility]
== END 2025-07-29 09:51 | disposition home or self-care (01) ==
PROVIDERS: PCP Internal Medicine; Visit Provider Internal Medicine Hypertension Specialist
DX: E11.22 Type 2 diabetes mellitus with diabetic chronic kidney disease (principal); N18.4 Chronic kidney disease, stage 4 (severe); Z79.4 Long term (current) use of insulin; N17.9 Acute kidney failure, unspecified; I12.9 Hypertensive chronic kidney disease with stage 1 through stage 4 chronic kidney disease, or unspecified chronic kidney disease; D63.1 Anemia in chronic kidney disease
CPT/HCPCS: 99214

== ENCOUNTER 2025-08-26 09:07 | Outpatient (AMB) | payer OTHER, SELFPAY ==
--- NOTE | 2025-08-26 09:12 | HO.NEPHOV ---
Vital Signs 08/26/25 09:13 Height 5 ft 6 in BP 146/58 H Blood Pressure Location Lt brachial Position Sitting Pulse 64 Pulse Source Pulse Oximeter Pulse Oximetry (%) 98 Oxygen Delivery Method Room Air Intake Visit Reasons: 1mnth w lab retacrit, called unreachable [place] Manager Required: No Accompanied by: Spouse Allergies No Known Allergies Allergy (Verified 08/26/25 09:17) Medication List - Last Reconciled 08/26/25 by Martín De Luna MD albuterol sulfate 90 mcg/actuation (ProAir HFA) 2 puffs inhalation Q6H PRN albuterol sulfate 90 mcg/actuation (ProAir RespiClick) 1 inh inhalation Q4-6H PRN aspirin 81 mg PO DAILY atorvastatin 80 mg PO DAILY carvedilol 12.5 mg PO BID cholecalciferol (vitamin D3) 50 mcg PO DAILY ferrous sulfate (FeroSul) 325 mg PO DAILY furosemide 80 mg PO DAILY hydralazine 75 mg (1.5 x 50 mg) PO TID insulin glargine (Lantus Solostar U-100 Insulin) 62 units subcut DAILY insulin lispro (Humalog KwikPen (U-100) Insulin) subcut metolazone 2.5 mg PO DAILY PRN nifedipine ER mg PO DAILY pantoprazole 40 mg PO DAILY potassium chloride ER 10 mEq PO DAILY HPI Comments Details: 74-year-old pleasant woman with a history of diabetes mellitus for more than 35 years who was at chronic kidney disease. She is history of congestive heart failure and was on Entresto Lasix and furosemide. Back in November of 2023 creatinine was 2.6 with EGFR of 19 mL/minute. She is currently in nifedipine 60mg daily, hydralazine 75mg TID, carvedilol 12.5mg BID and furosemide 40mg PO BID She continues to have back pain. She has chronic shortness of breath (reports since prior to heart surgery last year which she states did not really help her breathing much. States at rest is ok, with exertion continues to have some dyspnea chronically). No nausea, vomiting. She has leg edema. Wears compression stockings. No weight loss. All other systems were reviewed History of congestive heart failure with preserved ejection fraction. 09/10/24 reports shortness of breath for a while now reports a year ago had open heart surgery, reports before then had it but surgery didn't make it better and has continued blood pressure medications- reports has not taken yet this a.m. Reports SBP at home is usually in 130s. 10/15/2024. Milla was hospitalized about a week ago. She had acute kidney injury superimposed on CKD with fungemia. Serum creatinine peaked more than 4. Diuretics were held. Renal function gradually improved. She is currently not on diuretics creatinine is around 3. She has significant edema. No shortness of breath at present. Accompanied by her family member. She had recently undergone laparoscopic cholecystectomy for symptomatic cholelithiasis. During this hospitalization faustina was negative. He has been catheter was inserted 1121. She is currently on Micafungin and Zosyn 12/03/24; BP was low ; She was hospitalized [place] [facility] [place] Nov 2023 : Cr 2.2 ;Nov 2024 Cr 2.2 with eGFR of 22 ml/mt 01/14/25: Recently in ER for a viral infection; Resolved 02/04/25 Leg edema increased;Received IV Lasix 03/04/25 ;Here for follow up;Seen last week by for worsening renal function ;Diuretics were decreased ;She feels better Edema has improved ;Cr is still up 04/01/25 74-year-old female presenting for the ongoing management of chronic kidney disease. She reports an improvement in her kidney function, from 14% to 19%, over recent evaluations. There is ongoing management of her hypertension and diabetes, with noted dietary influences on her blood glucose control. During a recent vacation, she experienced fluctuations in her blood glucose levels due to less consistent insulin use. The patient reports continued management of edema in her lower extremities, utilizing diuretics and support stockings. Recent anemia was addressed with a corrective injection following a hemoglobin report at 9.0, with close monitoring planned. She describes an increased activity level during a vacation, which she believes positively impacted her overall condition. Her breathing remains stable, and she maintains a stable weight. 04/29/25: No new issues. Here for Retacrit. 05/20/25;Still with fatigue;No dyspnea; 06/17/25 : Here for KIARA 07/29/25 ;Overall doing well. No dyspnea. Weight is stable. 08/26/25: c/o right shoulder pain post rehab. No dyspnea No nausea or vomiting PFSH Medical History Chronic kidney disease Degenerative joint disease (DJD) of hip Cataract Bunion Fatty liver DJD (degenerative joint disease), lumbar DJD (degenerative joint disease), cervical Diabetes mellitus type 2 with neurological manifestations Vitamin D deficiency Urinary incontinence Allergic rhinitis GERD (gastroesophageal reflux disease) Depression Diabetic retinopathy Hypertension Hyperlipidemia Diabetic nephropathy Surgical History History of cholecystectomy (~09/2024) History of open heart surgery (~02/2023) History of adjustable gastric banding Social History Patient Tobacco Use Status: Never used Tobacco Physical Exam Vital Signs: Last Vital Signs Pulse 64 08/26/25 09:13 BP 146/58 H 08/26/25 09:13 Pulse Ox 98 08/26/25 09:13 Oxygen Delivery Method Room Air 08/26/25 09:13 Neck Neck: Yes supple Resp Auscultation: clear to auscultation bilaterally Cardio Palpation: no palpable S3 Heart sounds: no rubs GI Palpation (GI): Soft to palpation Auscultation: normal bowel sounds Neuro Motor exam (neuro): no asterixis Extrem General: Yes edema Office Meds epoetin disha-epbx 20,000 unit/mL injection solution Performing Provider: Martín De Luna MD Performing Location: [facility] [place] Administered by: Martín De Luna MD on 08/26/25 09:29 Dose Route Admin Location Dispensed Lot Number Expiration Date [facility] Supervisor [employer] 20,000 unit subcut right arm 1 mL [id number] 01/16/27 4326-3909-67 [employer] Total Dispensed Waste 1 mL 0 % Results Reviewed Nephrology Results: Hgb, (12.0-16.0) 9.2 g/dl L 07/29/25 WBC, (4.8-10.8) 7.0 X10*3/uL 07/29/25 Plt Count, (160-400) 256 X10*3/uL 07/29/25 Sodium, (135-145) 140 mmol/L 07/27/25 Potassium, (3.3-5.1) 5.1 mmol/L 07/27/25 Chloride, (96-108) 107 mmol/L 07/27/25 Carbon Dioxide, (22-29) 22 mmol/L 07/27/25 BUN, (9-16) 65 mg/dL H 07/27/25 Creatinine, (0.5-1.4) 2.86 mg/dL H 07/27/25 Calcium, (8.4-10.2) 9.4 mg/dL Δ 07/27/25 Assessment & Plan Assessment & Plan (1) Diabetes mellitus with chronic kidney disease: Code(s): E11.22 - Type 2 diabetes mellitus with diabetic chronic kidney disease Category: Medical Qualifiers: Chronic kidney disease stage: stage 4 (severe) Diabetes mellitus technician terminal and repeater insulin use: with [facility] use Diabetes mellitus type: type 2 Qualified Code(s): E11.22 - Type 2 diabetes mellitus with diabetic chronic kidney disease; N18.4 - Chronic kidney disease, stage 4 (severe); Z79.4 - superintendent [employer] (current) use of insulin (2) JERZY (acute kidney injury): Code(s): N17.9 - Acute kidney failure, unspecified Category: Medical (3) Hypertension: Code(s): I10 - Essential (primary) hypertension Category: Medical Qualifiers: Hypertension type: primary hypertension Qualified Code(s): I10 - Essential (primary) hypertension (4) Anemia in chronic kidney disease: Code(s): N18.9 - Chronic kidney disease, unspecified; D63.1 - Anemia in chronic kidney disease Category: Medical Qualifiers: Chronic kidney disease stage: stage 4 (GFR 15-29) Qualified Code(s): N18.4 - Chronic kidney disease, stage 4 (severe); D63.1 - Anemia in chronic kidney disease (5) Chronic kidney disease: Code(s): N18.9 - Chronic kidney disease, unspecified Category: Medical Qualifiers: Chronic kidney disease stage: stage 4 (severe) Qualified Code(s): N18.4 - Chronic kidney disease, stage 4 (severe) (6) CKD stage 4 due to type 2 diabetes mellitus: Code(s): E11.22 - Type 2 diabetes mellitus with diabetic chronic kidney disease; N18.4 - Chronic kidney disease, stage 4 (severe) Category: Medical Plan 74-year-old woman with a history of longstanding diabetes mellitus and coronary disease with stage IV CKD. CKD is most likely due to underlying diabetic kidney disease. Nondiabetic causes seem unlikely based on the clinical picture. Cr is better Down to 2.51 as of 03/31/25 ( drop in GFR was most likely from hypoperfusion) Keep on lower dose of diuretics for now and reassess Maintain A1c less than 7%. She is on adequate dose of diuretics at this time. She should stay on low-sodium diet which she is working on. She will benefit from SGLT2 inhibitors. Hypertension. 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 Iron stores are adequate. Administered Retacrit 83119 U administered subcutaneously today into right arm secondary hyperparathyroidism Mild elevation PTH. She will follow this and start her on vitamin D3 analog as needed. Discussed Dialysis options Has been referred for home dialysis evaluation She wants to think about it! 07/29/25: NO change in medications Adminstered Retacrit 81205 U SQ ; Hgb 9.2 BP acceptable. 08/26/25 Hgb stable at 9.3 - On Retacrit 52615 U q 2- 4 weeks Mild hypokalemia - REplace K orally Advanced CKD - relatively stable- No indication for dialysis yet Orders: Orders AMB Epoetin Injection Practice Supplied Today D63.1 - Anemia in chronic kidney disease, E11.22 - Type 2 diabetes mellitus with diabetic chronic kidney disease, N18.4 - Chronic kidney disease, stage 4 (severe) Coding Level of Care Code Est Pt Level 4 (49665) Diagnoses Type 2 diabetes mellitus with stage 4 chronic kidney disease, with long-term current use of insulin E11.22; N18.4; Z79.4 Chronic kidney disease stage: stage 4 (severe) Diabetes mellitus technician terminal and repeater insulin use: with [facility] use Diabetes mellitus type: type 2 JERZY (acute kidney injury) N17.9 Primary hypertension I10 Hypertension type: primary hypertension Anemia in stage 4 chronic kidney disease N18.4; D63.1 Chronic kidney disease stage: stage 4 (GFR 15-29) Stage 4 chronic kidney disease N18.4 Chronic kidney disease stage: stage 4 (severe) CKD stage 4 due to type 2 diabetes mellitus E11.22; N18.4
[2025-08-26 09:13] VITALS: BP 146/58; PULSE 64; O2SAT 98
== END 2025-08-26 09:36 | disposition home or self-care (01) ==
LOC: HO.HKAS 09:07
PROVIDERS: PCP Internal Medicine; Visit Provider Internal Medicine Hypertension Specialist
DX: E11.22 Type 2 diabetes mellitus with diabetic chronic kidney disease (principal); N18.4 Chronic kidney disease, stage 4 (severe); Z79.4 Long term (current) use of insulin; N17.9 Acute kidney failure, unspecified; I12.9 Hypertensive chronic kidney disease with stage 1 through stage 4 chronic kidney disease, or unspecified chronic kidney disease; D63.1 Anemia in chronic kidney disease
CPT/HCPCS: 99214

== ENCOUNTER → 2025-08-26 09:07 | Outpatient (BNVA) | payer OTHER, SELFPAY | PROVIDERS: PCP Internal Medicine; Visit Provider Internal Medicine Hypertension Specialist | DX: E11.22 Type 2 diabetes mellitus with diabetic chronic kidney disease (principal); N18.4 Chronic kidney disease, stage 4 (severe); N17.9 Acute kidney failure, unspecified; I10 Essential (primary) hypertension; D63.1 Anemia in chronic kidney disease | CPT/HCPCS: 96372; 99212; Q5106 ==

== ENCOUNTER 2025-09-21 13:34 | Outpatient (REF) | payer OTHER, SELFPAY ==
[2025-09-21 18:37] LABS: Anion Gap 12 (12-20); Blood Urea Nitrogen 48 mg/dL (9-16); Calcium 8.6 mg/dL (8.4-10.2); Carbon Dioxide 20 mmol/L (22-29); Chloride 107 mmol/L (96-108); Estimated Glomerular Filt Rate 16; Potassium 4.2 mmol/L (3.3-5.1); Sodium 135 mmol/L (135-145)
[2025-09-21 18:43] LABS: Hematocrit 29.8 % (37.0-47.0); Hemoglobin 9.3 g/dl (12.0-16.0); Mean Corpuscular HGB Conc 31.2 g/dl (31.0-35.0); Mean Corpuscular Hemoglobin 28.1 pg (27.0-33.0); Mean Corpuscular Volume 90.0 fL (80.0-98.0); NRBC Abs Auto 0.000 X10*3/uL (0.0-0.012); NRBC Pct Auto 0.0 /100WBC (0.0-0.2); Platelet Count 239 X10*3/uL (160-400); Red Blood Count 3.31 X10*6/uL (4.20-5.50); White Blood Count 6.8 X10*3/uL (4.8-10.8)
== END 2025-09-21 13:35 | disposition home or self-care (01) ==
LOC: HO.HKASLDS 13:34
PROVIDERS: PCP Internal Medicine; Visit Provider Internal Medicine Hypertension Specialist
DX: E11.22 Type 2 diabetes mellitus with diabetic chronic kidney disease (principal); N18.4 Chronic kidney disease, stage 4 (severe); D63.1 Anemia in chronic kidney disease
CPT/HCPCS: 36415; 80048; 85027

== ENCOUNTER 2025-09-23 08:49 | Outpatient (AMB) | payer OTHER, SELFPAY ==
--- OUTSIDE RECORDS SUMMARY | 2025-07-30 04:30 | XMS_ITS | Continuity of Care Document ---
Author Organization [facility] Address [address] [place] [address] Dr [address] [place] [address] Phone Care Team Providers Care Rock Splitter Name Role Phone Elbert AVILES, RVT, RPVI, [...] Mins- [place] & [place] [facility], [address] [place] [address] Dr Mcfadden [address] 1000V[place]hya [place], [id number], [place] tel:[phone] CVR - [facility] Localized edemaCramp and spasmRestless legs syndromeVenous insufficiency (chronic) (peripheral)Typ e 2 diabetes mellitus without complicationsEs sential (primary) hypertension Sep- Elbert AVILES RVT, MIRZA Claudio. [address] [facility], [address], [facility] [place], [id number] , [place]. tel:[phone] Referring Provider: Diana Hamm, [address] [place] [address] [facility], [address], [facility] [place], [address]. tel:[phone] [place] [facility], [address] [place] [address] Dr [facility]fadden [facility] [place], [id number], [place] tel:[phone] CVR - [place] Chronic venous hypertension (idiopathic) with other complications of bilateral lower extremity Sep- 5 Elbert AVILES RVT, MIRZA Claudio. [address] [facility], [address], [facility] [place], [id number] , [place]. tel:[phone] Referring Provider: Diana Hamm, [address] [place] [address] [facility], [place] [address], [place], [address]. tel:[phone] Office/Oupt E&M New Pt 45 Mins- CT & [place] [facility], [address] [place] [address] Dr Mcfadden [address]Suite Vidhya Zhao MD, [id number], [place] tel:[phone] CVR - [facility] Chronic venous hypertension (idiopathic) with other complications of bilateral lower extremityLymphe brenda, not elsewhere classifiedType 2 diabetes mellitus without complicationsRe stless legs syndromeEssenti al (primary) hypertensionCra mp and spasmLocalized edema Avel-2 4 Elbert AVILES RVT, MIRZA Claudio. [address] [facility], [address], [place], [id number] , [place]. tel:[phone] Referring Provider: Diana Hamm, [address] [place] [address] 175 [facility], [facility] 200, [facility] [place], [address]. tel:[phone] [place] [facility], [address] [place] [address] Dr Mcfadden [address] Vidhya Zhao MD, [id number], [place] tel:[phone] CVR - [facility] Chronic venous hypertension (idiopathic) with other complications of bilateral lower extremity Avel-2 5-202 4 Elbert AVILES, RVT, RPVI González. [address] [facility], [address], [place], [id number] , [place]. tel:[phone] Referring Provider: Diana Romano MD [place], [address] [facility] [place] [address] [facility], [address], [place], [address]. tel:[phone] Family History Family Member Type Diagnosis Age At Onset No Information Payers Payer name Insurance type Covered constitution party ID Krista fregoso(s) [facility] [id number] Social History Type Description Quantity Date Captured [...] Information Instructions Date Instruction Additional Infor mation Compression stocking usage as conservative measure Related to Localized edema Patient education booklet given Related to Localized edema Diet education Related to Body mass index (BMI) 34.0-34.9, adult Giving Encouragement to exercise Related to Body mass index (BMI) 34.0-34.9, adult Lifestyle education Related to B brandy mass index (BMI) 34.0-34.9, adult Diet education [...]
--- NOTE | 2025-09-23 08:53 | HO.NEPHOV_ITS ---
Vital Signs 09/23/25 08:54 Height 5 ft 6 in BP 152/64 H Blood Pressure Location Lt brachial Position Sitting Pulse 64 Pulse Source Pulse Oximeter Pulse Oximetry (%) 100 Oxygen Delivery Method Room Air Intake Visit Reasons: 4week f/u conf City Collector Required: No Accompanied by: Spouse Allergies No Known Allergies Allergy (Verified 09/23/25 08:55) Medication List - Last Reconciled 09/23/25 by Martín De Luna MD albuterol sulfate 90 mcg/actuation (ProAir HFA) 2 puffs inhalation Q6H PRN albuterol sulfate 90 mcg/actuation (ProAir RespiClick) 1 inh inhalation Q4-6H PRN aspirin 81 mg PO DAILY atorvastatin 80 mg PO DAILY carvedilol 12.5 mg PO BID cholecalciferol (vitamin D3) 50 mcg PO DAILY ferrous sulfate (FeroSul) 325 mg PO DAILY furosemide 80 mg PO DAILY hydralazine 75 mg (1.5 x 50 mg) PO TID insulin glargine (Lantus Solostar U-100 Insulin) 62 units subcut DAILY insulin lispro (Humalog KwikPen (U-100) Insulin) subcut metolazone 2.5 mg PO DAILY PRN nifedipine ER 60 mg PO DAILY pantoprazole 40 mg PO DAILY potassium chloride ER 10 mEq PO DAILY tirzepatide (Mounjaro) 2.5 mg subcut QWEEK HPI Comments Details: 74-year-old pleasant woman with a history of diabetes mellitus for more than 35 years who was at chronic kidney disease. She is history of congestive heart failure and was on Entresto Lasix and furosemide. Back in November of 2023 creatinine was 2.6 with EGFR of 19 mL/minute. She is currently in nifedipine 60mg daily, hydralazine 75mg TID, carvedilol 12.5mg BID and furosemide 40mg PO BID She continues to have back pain. She has chronic shortness of breath (reports since prior to heart surgery last year which she states did not really help her breathing much. States at rest is ok, with exertion continues to have some dyspnea chronically). No nausea, vomiting. She has leg edema. Wears compression stockings. No weight loss. All other systems were reviewed History of congestive heart failure with preserved ejection fraction. 09/10/24 reports shortness of breath for a while now reports a year ago had open heart surgery, reports before then had it but surgery didn't make it better and has continued blood pressure medications- reports has not taken yet this a.m. Reports SBP at home is usually in 130s. 10/15/2024. Milla was hospitalized about a week ago. She had acute kidney injury superimposed on CKD with fungemia. Serum creatinine peaked more than 4. Diuretics were held. Renal function gradually improved. She is currently not on diuretics creatinine is around 3. She has significant edema. No shortness of breath at present. Accompanied by her family member. She had recently undergone laparoscopic cholecystectomy for symptomatic cholelithiasis. During this hospitalization faustina was negative. He has been catheter was inserted 1121. She is currently on Micafungin and Zosyn 12/03/24; BP was low ; She was hospitalized @ [facility] [place]; Nov 2023 : Cr 2.2 ;Nov 2024 Cr 2.2 with eGFR of 22 ml/mt 01/14/25: Recently in ER for a viral infection; Resolved 02/04/25 Leg edema increased;Received IV Lasix 03/04/25 ;Here for follow up;Seen last week by for worsening renal function ;Diuretics were decreased ;She feels better Edema has improved ;Cr is still up 04/01/25 74-year-old female presenting for the ongoing management of chronic kidney disease. She reports an improvement in her kidney function, from 14% to 19%, over recent evaluations. There is ongoing management of her hypertension and diabetes, with noted dietary influences on her blood glucose control. During a recent vacation, she experienced fluctuations in her blood glucose levels due to less consistent insulin use. The patient reports continued management of edema in her lower extremities, utilizing diuretics and support stockings. Recent anemia was addressed with a corrective injection following a hemoglobin report at 9.0, with close monitoring planned. She describes an increased activity level during a vacation, which she believes positively impacted her overall condition. Her breathing remains stable, and she maintains a stable weight. 04/29/25: No new issues. Here for Retacrit. 05/20/25;Still with fatigue;No dyspnea; 06/17/25 : Here for KIARA 07/29/25 ;Overall doing well. No dyspnea. Weight is stable. 08/26/25: c/o right shoulder pain post rehab. No dyspnea ;No nausea or vomiting 09/23/25 The patient is a 74-year-old femalewith CKD and anemia Overall doing well The patient has a history of cataract surgery, which has improved her vision significantly. She is currently using eye drops twice daily as part of her postoperative care. [facility] Medical History Chronic kidney disease Degenerative joint disease (DJD) of hip Cataract Bunion Fatty liver DJD (degenerative joint disease), lumbar DJD (degenerative joint disease), cervical Diabetes mellitus type 2 with neurological manifestations Vitamin D deficiency Urinary incontinence Allergic rhinitis GERD (gastroesophageal reflux disease) Depression Diabetic retinopathy Hypertension Hyperlipidemia Diabetic nephropathy Surgical History History of cholecystectomy (~09/2024) History of open heart surgery (~02/2023) History of adjustable gastric banding Social History Patient Tobacco Use Status: Never used Tobacco Physical Exam Vital Signs: Last Vital Signs Pulse 64 09/23/25 08:54 Pulse Ox 100 09/23/25 08:54 Oxygen Delivery Method Room Air 09/23/25 08:54 Office Meds epoetin disha-epbx 20,000 unit/mL injection solution Performing Provider: Martín De Luna MD [facility] Administered by: Martín De Luna MD on 09/23/25 09:04 Dose Route Admin Location Dispensed Lot Number Expiration Date [facility] Advanced Manufacturing Engineer 20,000 unit subcut 1 mL [id number] 01/16/27 5773-8565-[address] [place] [address] [place] [employer] Total Dispensed Waste 1 mL 0 % Results Reviewed Nephrology Results: Hgb, (12.0-16.0) 9.3 g/dl L 09/21/25 WBC, (4.8-10.8) 6.8 X10*3/uL 09/21/25 Plt Count, (160-400) 239 X10*3/uL 09/21/25 Sodium, (135-145) 135 mmol/L 09/21/25 Potassium, (3.3-5.1) 4.2 mmol/L 09/21/25 Chloride, (96-108) 107 mmol/L 09/21/25 Carbon Dioxide, (22-29) 20 mmol/L L 09/21/25 BUN, (9-16) 48 mg/dL H 09/21/25 Creatinine, (0.5-1.4) 2.90 mg/dL H 09/21/25 Calcium, (8.4-10.2) 8.6 mg/dL Δ 09/21/25 Assessment & Plan Assessment & Plan (1) Diabetes mellitus with chronic kidney disease: Code(s): E11.22 - Type 2 diabetes mellitus with diabetic chronic kidney disease Category: Medical Qualifiers: Diabetes mellitus type: type 2 Diabetes mellitus detention insulin use: with adjunct faculty for medical terminology use Chronic kidney disease stage: stage 4 (severe) Qualified Code(s): E11.22 - Type 2 diabetes mellitus with diabetic chronic kidney disease; N18.4 - Chronic kidney disease, stage 4 (severe); Z79.4 - skilled nursing (current) use of insulin (2) JERZY (acute kidney injury): Code(s): N17.9 - Acute kidney failure, unspecified Category: Medical (3) Hypertension: Code(s): I10 - Essential (primary) hypertension Category: Medical Qualifiers: Hypertension type: primary hypertension Qualified Code(s): I10 - Essential (primary) hypertension (4) Anemia in chronic kidney disease: Code(s): N18.9 - Chronic kidney disease, unspecified; D63.1 - Anemia in chronic kidney disease Category: Medical Qualifiers: Chronic kidney disease stage: stage 4 (GFR 15-29) Qualified Code(s): N18.4 - Chronic kidney disease, stage 4 (severe); D63.1 - Anemia in chronic kidney disease (5) Chronic kidney disease: Code(s): N18.9 - Chronic kidney disease, unspecified Category: Medical Qualifiers: Chronic kidney disease stage: stage 4 (severe) Qualified Code(s): N18.4 - Chronic kidney disease, stage 4 (severe) (6) CKD stage 4 due to type 2 diabetes mellitus: Code(s): E11.22 - Type 2 diabetes mellitus with diabetic chronic kidney disease; N18.4 - Chronic kidney disease, stage 4 (severe) Category: Medical Plan 74-year-old woman with a history of longstanding diabetes mellitus and coronary disease with stage IV CKD. CKD is most likely due to underlying diabetic kidney disease. Nondiabetic causes seem unlikely based on the clinical picture. Cr is better Down to 2.51 as of 03/31/25 ( drop in GFR was most likely from hypoperfusion) Keep on lower dose of diuretics for now and reassess Maintain A1c less than 7%. She is on adequate dose of diuretics at this time. She should stay on low-sodium diet which she is working on. She will benefit from SGLT2 inhibitors. Hypertension. 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 Iron stores are adequate. Administered Retacrit 39746 U administered subcutaneously today into right arm secondary hyperparathyroidism Mild elevation PTH. She will follow this and start her on vitamin D3 analog as needed. Discussed Dialysis options Has been referred for home dialysis evaluation She wants to think about it! 07/29/25: NO change in medications Adminstered Retacrit 33565 U SQ ; Hgb 9.2 BP acceptable. 09/23/25 Hgb stable at 9.3 - On Retacrit 80018 U q 4 weeks Advanced CKD - relatively stable- No indication for dialysis yet Orders: Orders AMB Epoetin Injection Practice Supplied Today N40.1 - Benign prostatic hyperplasia with lower urinary tract symptoms Basic Metabolic Panel 4 Weeks D63.1 - Anemia in chronic kidney disease, N18.4 - Chronic kidney disease, stage 4 (severe) Complete Blood Count no Diff 4 Weeks D63.1 - Anemia in chronic kidney disease, N18.4 - Chronic kidney disease, stage 4 (severe) Coding Level of Care Code Est Pt Level 4 (38221) Diagnoses Type 2 diabetes mellitus with stage 4 chronic kidney disease, with long-term current use of insulin E11.22; N18.4; Z79.4 Diabetes mellitus type: type 2 Diabetes mellitus detention insulin use: with detention use Chronic kidney disease stage: stage 4 (severe) JERZY (acute kidney injury) N17.9 Primary hypertension I10 Hypertension type: primary hypertension Anemia in stage 4 chronic kidney disease N18.4; D63.1 Chronic kidney disease stage: stage 4 (GFR 15-29) Stage 4 chronic kidney disease N18.4 Chronic kidney disease stage: stage 4 (severe) CKD stage 4 due to type 2 diabetes mellitus E11.22; N18.4
[2025-09-23 08:54] VITALS: BP 152/64; PULSE 64; O2SAT 100
--- OUTSIDE RECORDS SUMMARY | 2025-09-23 09:18 | XMS_ITS ---
Author Name Sera Houser NP Address [address] [place] [address] Phone [phone] [facility] Care Team Providers Care Benzol Operator Name Role Phone Sera Houser Unavailable [phone] [facility] Unavailable Unavailable Unavailable [phone] Unavailable Unavailable Unavailable Unavailable Unavailable [phone] Unavailable Unavailable [phone] Unavailable Unavailable [phone] Unavailable Unavailable [phone] Unavailable Unavailable [phone] Unavailable Unavailable [phone] Unavailable Unavailable [phone] Unavailable Unavailable [phone] Unavailable Unavailable [phone] [employer] Unavailable [phone] medline Unavailable [phone] Chaganti, Diana Unavailable [phone] CHELSIE MEYER Unavailable [phone] Reason for Referral Not Available Allergies, adverse [...] No Data Available B-D PEN NDL SHRT [id number](03/19 6) SHAW USE DIRECTED TO ADMINISTER INSULIN [...] Active 2023-01-02 N/A Pt will f/u with [facility] to schedule OP f/u for discussion of Cholecystectomy. Encounters Encounters Type Facility Date of Service Diagnosis/Co mplaint Medication List Documented (1159F) [facility]/2022 Medication List Documented (1159F) [facility]2022 Medication List Documented (1159F) [facility]20[place] Medication List Documented (1159F) [facility]2022 Medication List Documented (1159F) [facility]/2022 Medication List Documented (1159F) [facility] 09/11/2022 Medication List Documented (1159F) [facility] ([place] 09/11/2022 Medication List Documented (1159F) [facility]20[place] Type 2 diabetes mellitus wit h diabetic chronic kidney diseaseChronic kidney disease, stage 3 unspecifiedChronic obstructive pulmonary disease, unspecifiedHyp hrt & chr kdny dis w hrt fail and stg 1-4/unsp chr kdnyHeart failure, unspecifiedHyperlipidemia, unspecifiedMajor depressive disorder, single episode, unspecifiedUnspecified osteoarthritis, unspecified site No Data Available [facility]/2022 Unspecified osteoarthritis, unspecified siteOther chronic painHeart failure, unspecifiedChronic obstructive pulmonary disease, unspecified No Data Available [facility]/18/2022 Unspecified osteoarthritis, unspecified siteOther chronic pain No Data Available [facility] 01/02/2023 Cholecystitis, unspecified No Data Available [facility] 01/02/2023 Vital Signs Date of Collection Vitals 2022-09-11 07:40:43 Height - 165.1 cmWei ght - 109.32 kgBody Mass Index (BMI) - 40.1 kg/m2BP Diastolic - 84.0 mm[Hg]BP Systolic - 170.0 mm[Hg]Heart Rate - 88.0 /min Social History Social History Social History Observation Description Effec tive Time Current Smoking Status Never smoker 5 Sex Female History of Procedures Procedures [...] (do not use for phone, instead use [id number]) 73058 2022-09-11 No Data Available No Data Availa ble No Data Available [id number] 2022-09-22 No Data Available No Data Available No Data Available [id number] 2022-10-18 No Data Available No Data Available No Data Available [id number] 2023-01-02 No Data Available No Data Available [...] Cholecystitis [K81.9 ]> Pt will f/u with [facility] to schedule OP f/u for [...] hospital course: 12/20/22- 12/22/22Pt was seen at [facility] for chest and abdominal pain. She [...] BY MOUTH ONCE QHSB-D PEN NDL SHRT [id number](04/03) SHAW sig: USE DIRECTED TO ADMINISTER INSULIN [...]
--- OUTSIDE RECORDS SUMMARY | 2025-09-23 09:18 | XMS_ITS | Clinical Summary ---
Author Organization [facility] Address [address] [place], [place] [id number] Phone Care Team Providers Care Lehr Cutter Name Role Phone Diana Romano MD Primary Care Provider [phone] Boubacar Cabrera MD Unavailable [phone] Martín De Luna MD Unavailable [phone] Allergies No known active allergies Medications atorvastatin [...] 2-3x daily, 15 min AC 30 mL 08/04/20 25 Active insulin pen needles, disposable, 29 gauge x 1/2 NdleIndications: Type 2 diabetes mellitus with peripheral neuropathy 1 each by Miscellaneous route 4 (four) times a day before meals and nightly. 400 each 08/04/20 25 Active LANTUS SOLOSTAR U-100 INSULIN 100 unit/mL (3 mL) InPn injection penIndications:T ype 2 diabetes mellitus with peripheral neuropathy Inject 14-18 Units under the skin daily. 30 mL 3 08/04/20 25 Active glucagon (BAQSIMI) 3 mg/actuation SpryIndications: Type 2 diabetes mellitus with peripheral neuropathy 1 spray by Nasal route once as needed (SEVERE HYPOGLYCEMIA). 1 each 2 08/04/20 25 Active tirzepatide (MOUNJARO) 2.5 mg/0.5 mL PnIj subcutaneous penIndications:T ype 2 diabetes mellitus with peripheral neuropathy Inject 0.5 mL (2.5 mg total) under the skin once a week. 2 mL 08/04/20 25 Active Active Problems Problem Noted Date Diagnosed [...] long-term current use of insulin Overview (04/11/2023): [facility] & Dr. 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 Continue to work on eating healthy & keeping active, as able. To call or send in BG with problems with glycemic control. Up to date with ophtho. 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 Will forward note to [place]. They should fax us with any paperwork needed. Type 2 diabetes mellitus with peripheral neuropa thy Overview (04/11/2023): Dr Stokes Assessment & Plan (08/27/2025 8:18 AM EDT): Control is reasonable based upon the patient's freestyle katie 2 sensor download. No frequent or severe hypoglycemia. Will lower her lantus to 14 units to help prevent the lower readings in the morning. Will try switching her trulicity to mounjaro to see if she gets the potential for weight loss with the mounjaro. With the potential for weight loss we may be able to lower her insulin further which would further lessen the risks of lows. Continue to work on eating healthy and being active. To call or message with any issues managing her glucose levels. Up to date with [facility]. Sees podiatry. Labs were done with renal will try to get results Assessment & Plan (04/23/2025 5:20 PM EDT): [...] her glucose levels. Up to date with [facility]. Sees podiatry. Labs ordered Assessment & Plan [...] Up to date with [facility]. Sees podiatry. Will get recent labs from [facility] Assessment & Plan (10/24/2023 2:34 PM [...] glucose levels. Up to date with [facility]. Assessment & Plan (04/11/2023 8:45 PM EDT): [...] Encounters Date Type Department Care Team Description 08/06/2025 Telephone [facility] [address] [place] [address] Whitley Salas MA Labs 08/05/2025 Telephone [facility] [address] [place] [address] Marli Call MA 08/04/2025 9:00 AM EDT Office Visit [facility] [address] [place] [address] Julienne Vivas, PAPercyC Type 2 diabetes mellitus with peripheral neuropathy (Primary Dx) from Last 3 Months Social History Tobacco [...] Sign Reading Time Taken Comments Blood Pressure 122/72 08/04/2025 9:11 AM EDT Pulse 67 08/04/2025 9:11 AM EDT Temperature 36.6 C (97.8 F) 01/16/2024 10:27 AM EST Respiratory Rate - - Oxygen Saturation 97% 08/04/2025 9:11 AM EDT Inhaled Oxygen Concentration - - Weight 100.7 kg (222 lb) 04/23/2025 10:22 AM EDT Height 165.1 cm (5' 5 ) 08/04/2025 9:11 AM EDT Body Mass Index 36.94 11/06/2024 9:30 AM EST Plan of Treatment Upcoming Encounters Date Type Department Care Team (Late st Contact Info) Description 10/23/2025 9:40 AM EST Office Visit [facility] [address] [place] [address] Julienne Vivas PA-C [address] [place] [id number] 01/22/2026 10:00 AM EST Office Visit [facility] [address] [place] [address] Winter Zaman MD [address] [place] [id number] 05/04/2026 9:00 AM EDT Office Visit [facility] [address] [place] [address] Julienne Vivas PA-C [address] [place] [id number] Health Maintenance Due Date Last Done Comments Adult Td,Tdap Booster 1950 DEPRESSION SCREENING 1963 HEPATITIS C SCREENING 1969 PNEUMOCOCCAL VACCINES (50+ years) (1 of 2 - PCV) 1970 COLOGUARD 1996 COLONOSCOPY 1996 COLORECTAL CANCER SCREENING 1996 FIT TEST 1996 FOBT 1996 SIGMOIDOSCOPY 1996 VIRTUAL COLONOSCOPY 1996 RSV VACCINE (1 - Risk 50-74 years 1-dose series) 2001 OSTEOPOROSIS SCREENING INITIAL (ONE-TIME) 2016 ZOSTER VACCINES (3 of 3) 01/23/2020 020, 09/19/2013, 11/05/2012 DIABETIC EYE EXAM 04/11/2023 INFLUENZA VACCINE (#1) 2025 , 07/15/2021, 08/18/2020, Additional history exists COVID-19 VACCINE (2024- season) 2025 HEMOGLOBIN A1C 07/24/2025 04/23/2025, 01/17, 10/24/2023, Additional history exists BLOOD PRESSURE 02/01/2026 08/04/2025 POTASSIUM LEVEL 04/23/2026 04/23/2025, 07/20, 04/09/2024, Additional [...] mellitus with peripheral neuropathy BASIC METABOLIC PANEL (BMP) Routine 04/23/2025 11:17 AM EDT Type 2 diabetes mellitus with peripheral neuropathy from Last 3 Months or Most Recently Relevant to Health Maintenance Results * (ABNORMAL) Hemoglobin A1c (04/23/2025 11:17 AM EDT) HEMOGLOBIN A1C 8.3(H) 4.3 - 5.8 % [facility] Blood 04/23/2025 11:1 7 AM EDT 04/23/2025 11:21 AM EDT us Winter Zaman MD LAB BLOOD BKR ORDERABL ES Final Result [address] [address] * (ABNORMAL) Basic metabolic panel (04/23/2025 11:17 AM EDT) SODIUM 137 133 - 146 mmol/L [facility] CHLORIDE 102 96 - 108 mmol/L [facility] POTASSIUM 4.3 3.3 - 5.1 mmol/L [facility] CO2 25 21 - 35 mmol/L [facility] BUN 46(H) 6 - 19 mg/dL [facility] CREATININE 2.40(H) 0.5 - 1.5 mg/dL [facility] GLUCOSE 238(H) 70 - 99 mg/dL [facility] CALCIUM 9.1 8.4 - 10.3 mg/dL [facility] EGFR 21(L) >59 mL/min/1.7 3m2 [facility] Comment:Estimated glomerular filtration rate calculated using the CKD-EPI refit equation. ANION GAP 14 10 - 20 mmol/L [facility] Blood 04/23/2025 11:1 7 AM EDT 04/23/2025 11:22 AM EDT Winter Zaman MD LAB BLOOD BKR ORDERABL ES Final Result [facility] [address] [place] [address] from Last 3 Months or Most Recently Relevant to Health Maintenance Insurance [facility] [employer] MEDICARE REPLACEMENT [facility] MEDICARE REPLACEMENT [facility] MEDICARE REPLACEMENT [facility] MEDICARE REPLACEMENT Care Teams Lehr Cutter Relationship Specialty Start Date End Date Diana Romano MD [address] [place] [address] [address] [place] [address] PCP - General Internal Medicine 02/22/23 Boubacar Cabrera MD 300 [facility] [address] [place] [address] Cardiology 10/24/23 Martín De Luna MD 300 [facility] [address] [place] [address] Nephrology 04/23/25 Additional Source Comments The information contained in this document represents components of the legal health record. It is not the complete legal health record.[facility]
--- OUTSIDE RECORDS SUMMARY | 2025-09-23 09:19 | XMS_ITS | Clinical Summary ---
Author Organization [facility] Address [address] [place] [address] Phone Care Team Providers Care Managed Care Manager Name Role Phone Dionisio Romano MD Primary Care Provider [phone] Allergies No known active allergies Medications aspirin 81 mg EC tablet Take 1 tablet (81 mg total) by mouth 1 (one) time each day. Active insulin glargine (Lantus Solostar U-100 Insulin) [...] 24 hr tabletIndicati ons:Coronary artery disease involving red devil coronary artery of red devil heart without angina pectoris Take 1 tablet [...] DAY 90 tablet 1 07/01/20 25 Active ketorolac (ACULAR) 0.4 % ophthalmic solution Administer 1 drop into the left eye 4 (four) times a day. Active tirzepatide (Mounjaro) 5 mg/0.5 mL injection Inject 0.5 mL (5 mg total) under the skin. Active magnesium oxide 400 mg magnesium capsule Take 1 capsule by mouth at bedtime. 90 capsule 3 08/21/20 25 Active potassium chloride (KLOR-CON M10) 10 mEq CR tablet Take 1 tablet (10 mEq total) by mouth 1 (one) time each day. Tablet may be swallowed whole (do not crush/chew/graham ck on) OR broken in half and each half swallowed separately OR dissolved (whole tablet) in ~4 ounces of water (allow ~2 minutes to dissolve, stir well and administer immediately). 90 each 2 08/21/20 25 Active NIFEdipine CC (ADALAT CC) 60 mg 24 hr tablet Take 1 tablet (60 mg total) by mouth 1 (one) time each day. 90 tablet 1 08/28/20 25 Active pantoprazole (PROTONIX) 40 mg EC tablet Take 1 tablet (40 mg total) by mouth 1 (one) time each day. 90 tablet 1 08/28/20 25 Active methenamine hippurate (HIPREX) 1 gram tablet TAKE 1 TABLET(1 GRAM) BY MOUTH TWICE DAILY 60 tablet 1 08/28/20 25 Active furosemide (LASIX) 40 mg tablet TAKE 2 TABLETS(80 MG) BY MOUTH 1 TIME EACH DAY 90 tablet 3 09/01/20 25 Active NIFEdipine CC (ADALAT CC) 60 mg 24 hr tablet TAKE 1 TABLET BY MOUTH DAILY 90 tablet 1 03/04/20 25 025 Discontinued(Re order) pantoprazole (PROTONIX) 40 mg EC tablet TAKE 1 TABLET BY MOUTH DAILY 90 tablet 1 03/06/20 25 025 Discontinued(Re order) furosemide (LASIX) 40 mg tablet Take 2 tablets (80 mg total) by mouth 1 (one) time each day. 90 tablet 3 03/06/20 25 025 Discontinued methenamine hippurate (HIPREX) 1 gram tablet Take 1 tablet (1 g total) by mouth 2 (two) times a day. 60 tablet 1 07/03/20 25 025 Discontinued Active Problems Problem Noted Date Diagnosed Date Type 2 diabetes mellitus wit h stage 4 chronic kidney disease, with long-term current use of insulin ([facility] V24, [facility] V28) 08/18/2025 Assessment & Plan (08/18/2025 1:00 PM EDT): Orders: Hemoglobin A1c; Future CBC and differential; Future Basic metabolic panel; Future Magnesium; Future Obesity, morbid ([facility] V24, [facility] V28) 08/18 Assessment & Plan (08/18/2025 1:00 PM EDT): Orders: Hemoglobin A1c; Future CBC and differential; Future Basic metabolic panel; Future Magnesium; Future (HFpEF) heart failure with p reserved ejection fraction ([facility] V24, [facility] V28) 12/12/2024 Assessment & Plan (12/12/2024 10:28 [...] echocardiogram in September 2024 while hospitalized at [facility] which was reviewed. Abdominal pain 12/09/2024 [...] Heart failure (CMS/HCC V24, CMS/HCC V28) 024 Assessment & Plan (08/18/2025 1:00 PM EDT): Orders: Hemoglobin A1c; Future CBC and differential; Future Basic metabolic panel; Future Magnesium; Future Pulmonary edema 12/19/2023 Edema 09/25/2023 Coronary artery disease invo lving red devil coronary artery of red devil heart without angina pectoris 03/26/2023 Overview (09/04/2024): [...] 12/27/2022 Nausea 12/27/2022 Shortness of breath 12/27/2022 Assessment & Plan (08/18/2025 1:00 PM EDT): Orders: Ambulatory referral to Pulmonology; Future Hemoglobin A1c; Future CBC and differential; Future Basic metabolic panel; Future Magnesium; Future Vomiting 12/27/2022 Chronic kidney disease 07/07/2022 Allergic rhinitis 02/13/2017 Diabetes mellitus type 2 wit h neurological manifestations ([facility] V24, [facility] V28) 02/13/2017 DJD (degenerative joint disease), cervical 02/13 DJD (degenerative joint disease), lumbar 017 Fatty liver 02/13/2017 GERD (gastroesophageal reflux disease) 7 Type 2 diabetes mellitus wit h cataract ([facility] V24, [facility] V28) 02/13/2017 Urinary incontinence 02/13/2017 Venous [...] D deficiency 02/13/2017 Depression 02/08/2017 Diabetic neuropathy ([facility] V24, [facility] V28) 0 02/08/2017 Diabetic retinopathy ([facility] V24, [facility] V28) 02/08/2017 Hyperlipidemia 02/08/2017 Overview (09/04/2024): [...] Encounters Date Type Department Care Team Description 08/19/2025 Results Follow-Up Internal Medicine - [address] [place] [address] Dionisio Romano MD 08/18/2025 9:45 AM EDT Office Visit Internal Medicine - [address] [place] [address] Dionisio Romano MD Pre-op examination (Primary Dx); Shortness of breath; Breast cancer screening by mammogram; Type 2 diabetes mellitus with stage 4 chronic kidney disease, with long-term current use of insulin ([facility] V24, [facility] V28); Obesity, morbid ([facility] V24, [facility] V28); End stage heart failure ([facility] V24, [facility] V28); Diarrhea, unspecified type; LFT elevation; Need for vaccination against Streptococcus pneumoniae; Encounter for subsequent annual wellness visit (AWV) in Medicare patient from Last 3 Months Immunizations Immunization Administration Dates Next Due Influenza trivalent, 0.5mL (Fluad) 65yo and olde r 08/18/2020,08/05/2020 Influenza trivalent, 0.5mL, preservative free (Fluarix; FluLaval; Fluzone) ages 6mo and older (Afluria) 3 years and older 09/24/2015 Pfizer SARS-CoV-2 COVID-19, mRNA, LNP-S, preservative free 09/06/2021,02/18/2021 Pneumococcal conjugate 13 va lent (Prevnar 13, PCV13) 2mo and older 01/02/2017 Pneumococcal conjugate 20 va lent (Prevnar 20, PCV 20) 2mo and older 08/18/2025 Pneumococcal polysaccharide 23 valent (Pneumovax 23) 2yo [...] History Medical History Date Comments Diabetic neuropathy ([facility] V24, [facility] V28) 02/08/2017 DX:Diabetic neuropathy ([facility]) Hyperlipidemia 02/08/2017 DX:Hyperlipidemi a Hypertension 02/08/2017 DX:Hypertension Diabetic retinopathy ([facility]/ C V24, [facility] V28) 02/08/2017 DX:Diabetic retinopathy ([facility] ) Depression 02/08/2017 DX:Depression History of adjustable gastric banding 02/13/2017 DX:History of adjustable gastric banding Diabetes mellitus type 2 wit h neurological manifestations ([facility] V24, [facility] V28) 02/13/2017 DX:Diabetes mellitus type 2 with neurological manifestations (HCC) Type 2 diabetes mellitus wit h eye manifestations ([facility] V24, [facility] V28) 02/13/2017 DX:Type 2 diabetes mellitus with eye manifestations (HCC) Type 2 diabetes mellitus wit h cataract ([facility] V24, [facility] V28) 02/13/2017 DX:Type 2 diabetes mellitus with cataract ([facility]) Allergic rhinitis 02/13/2017 DX:Allergic rh initis [...] Insulin dependent type 2 destini betes mellitus ([facility] V24, [facility] V28) DX:Insulin depende nt type 2 diabetes mellitus (HCC) RUQ pain DX:RUQ pain Anemia Diabetes ([facility] V24, [facility] V28) Family History Medical History Relation Name [...] Sign Reading Time Taken Comments Blood Pressure 137/67 08/18/2025 9:51 AM EDT Pulse 64 08/18/2025 9:51 AM EDT Temperature 36.8 C (98.2 F) 08/18/2025 9:51 AM EDT Respiratory Rate 18 08/18/2025 9:51 AM EDT Oxygen Saturation 99% 08/18/2025 9:51 AM EDT Inhaled Oxygen Concentration - - Weight 97.1 kg (214 lb) 08/18/2025 9:51 AM EDT Height 167.6 cm (5' 6 ) 08/18/2025 9:51 AM EDT Body Mass Index 34.54 08/18/2025 9:51 AM EDT Plan of Treatment Upcoming Encounters Date Type Department Care Team (Late st Contact Info) Description 10/01/2025 10:40 AM EST Office Visit [facility] [address] [place] [address] Dr Mcf[address] [place] [phone] Pancho Montes De Oca NP [address] [place] [address] Dr Knight [address] [place] [phone] 11/16/2025 8:15 AM EST Appointment [facility] [address] [place] [phone] 12/22/2025 9:00 AM EST Office Visit Internal Medicine - [place] [address] [facility] [address] [place] [phone] Dionisio Romano MD [address] [place] [address] 03/25/2026 8:20 AM EDT Consult Gastroenterology - [address] [facility] [address] [facility] [address] [place] [phone] Lyla Green NP [address] [facility] [address] [place] [address] Health Maintenance Due Date Last Done Comments Zoster Vaccines (2 of 2) 01/23/2020 020, 09/19/2013, 11/05/2012 Falls Risk Assessment 10/28/2022 Social Influencers of Health Screening 10/28/2022 Diabetes: Annual Urine Albumin-Creatinine Ratio (uACR) 06/21/2024 06/21/2023 Diabetes: Annual Foot Exam 10/09/2024 10/09/2023 COVID-19 Vaccine (7 - Pfizer risk season) 2025 03/12/2025, 08/06/2023, 06/23/2022, Additional history exists Diabetes: Blood Sugar Control Test (HGBA1C) 02/15/2026 08/18/2025, 01/30/2025, 06/01/2021 Diabetes: Annual Retina Eye Exam 07/22/2026 07/22/2025, 05/12/2024 Diabetes: Annual GFR (Glomerular Filtration Rate) 08/18/2026 08/18/2025, 12/16/2024, 03/05/2024 Hypertension/CHF/CAD Annual BMP Blood Test 08/18/2026 08/18/2025, 12/16/2024, 03/05/2024 Medicare Annual Wellness Visit 08/18/2026 08/18/2025 Breast Cancer Screening 11/13/2026 11/13/20, 05/07/2024, 11/05/2023, Additional history exists Cholesterol Screening (Lipid Panel) 09/08/2029 09/08/2024, 06/01/2021 Osteoporosis Screening (Bone Density Screening) 12/05/2032 12/05/2022, 01/28/2020 Colorectal Cancer Screening: Colonoscopy 04/16/2034 04/16/2024 DTaP,Tdap,and Td Vaccines (3 - Td or Tdap) 03/12/2035 03/12/2025, 06/21/2023 Hepatitis C Screening Completed 02/27/2023 RSV Immunization Adult Patients Completed 06/30/2024 Influenza Vaccine Completed 08/06/2025, , 08/06/2023, Additional history exists Depression Screening Completed 08/18/2025 Pneumococcal Vaccine: 50+ Years Completed 08/18/2025, 02/05/2018, 01/02/2017 HIB Vaccines Aged Out No longer eligi [...] Procedure Name Priority Date/Time Associated Diagnosis Comments CBC WITH AUTO DIFFERENTIAL Routine 08/18/2025 11:01 AM EDT Shortness of breath Breast cancer screening by mammogram Type 2 diabetes mellitus with stage 4 chronic kidney disease, with long-term current use of insulin ([facility] V24, CMS/HCC V28) Obesity, morbid ([facility]/HCC V24, CMS/HCC V28) End stage heart failure (CMS/HCC V24, CMS/HCC V28) Diarrhea, unspecified type LFT elevation HEMOGLOBIN A1C Routine 08/18/2025 11:01 AM EDT Shortness of breath Breast cancer screening by mammogram Type 2 diabetes mellitus with stage 4 chronic kidney disease, with long-term current use of insulin ([facility] V24, CMS/HCC V28) Obesity, morbid (CMS/HCC V24, CMS/HCC V28) End stage heart failure (CMS/HCC V24, CMS/HCC V28) Diarrhea, unspecified type LFT elevation CBC AND DIFFERENTIAL Routine 08/18/2025 11:01 AM EDT Shortness of breath Breast cancer screening by mammogram Type 2 diabetes mellitus with stage 4 chronic kidney disease, with long-term current use of insulin ([facility] V24, CMS/HCC V28) Obesity, morbid (CMS/HCC V24, CMS/HCC V28) End stage heart failure (CMS/HCC V24, CMS/HCC V28) Diarrhea, unspecified type LFT elevation BASIC METABOLIC PANEL Routine 08/18/2025 11:01 AM EDT Shortness of breath Breast cancer screening by mammogram Type 2 diabetes mellitus with stage 4 chronic kidney disease, with long-term current use of insulin ([facility] V24, CMS/HCC V28) Obesity, morbid ([facility]/HCC V24, CMS/HCC V28) End stage heart failure (CMS/HCC V24, CMS/HCC V28) Diarrhea, unspecified type LFT elevation MAGNESIUM Routine 08/18/2025 11:01 AM EDT Shortness of breath Breast cancer screening by mammogram Type 2 diabetes mellitus with stage 4 chronic kidney disease, with long-term current use of insulin ([facility] V24, [facility] V28) Obesity, morbid ([facility] V24, [facility] V28) End stage heart failure ([facility] V24, [facility] V28) Diarrhea, unspecified type LFT elevation EXTERNAL DIABETIC RETINA EYE EXAM 07/22/2025 MG MAMMO DIGITAL DIAGNOSTIC W ISAAC BILAT Routine 11/13/2024 8:23 AM EST Category 3 mammography result with short follow-up interval suggested for probably benign finding COLONOSCOPY Routine 04/16/2024 DIABETES FOOT EXAM Routine 10/09/2023 URINE ALBUMIN CREATININE RATIO Routine 06/21/2023 HEPATITIS C SCREENING Routine 02/27/2023 [facility] DEXA AXIAL SKELETON Routine 12/05/2022 5:38 PM EST Encounter for screening for osteoporosis LIPID PANEL Routine 06/01/2021 from Last 3 Months or Most Recently Relevant to Health Maintenance Results * (ABNORMAL) CBC auto differential (08/18/2025 11:01 AM EDT) Pathologist [facility] WBC 6.2 4.8 - 10.8 K/mcL LAB HEMETOLOGY METHOD 08/18/2025 2:25 PM EDT [facility] RBC 3.30(L) 3.80 - 4.80 M/mcL LAB HEMETOLOGY METHOD 08/18/2025 2:25 PM EDT [facility] Hemoglobin 9.3(L) 11.5 - 16.0 g/dL LAB HEMETOLOGY METHOD 08/18/2025 2:25 PM EDT [facility] Hematocrit 29.4(L) 35.0 - 47.0 % LAB HEMETOLOGY METHOD 08/18/2025 2:25 PM EDT [facility] MCV 88.8 79.0 - 98.0 FL LAB HEMETOLOGY METHOD 08/18/2025 2:25 PM EDT [facility] MCH 28.1 27.0 - 32.0 pcg LAB HEMETOLOGY METHOD 08/18/2025 2:25 PM EDT [facility] MCHC 31.6(L) 32.0 - 37.0 g/dL LAB HEMETOLOGY METHOD 08/18/2025 2:25 PM EDT [facility] RDW 17.7(H) 11.0 - 15.0 % LAB [facility] 224 130 - 400 K/mcL LAB HEMETOLOGY METHOD 08/18/2025 2:25 PM EDT [facility] MPV 11.1(H) 7.0 - 11.0 FL LAB HEMETOLOGY METHOD 08/18/2025 2:25 PM EDT [facility] NRBC 0.0 <1.0 % LAB [facility]Y [facility] NRBC Absolute 0.00 <0.10 K/mcL LAB HEMETOLOGY METHOD 08/18/2025 2:25 PM EDT [facility] Neutrophils Relative 63.6 % LAB HEMETOLOGY METHOD 08/18/2025 2:25 PM EDT [facility] Lymphocytes Relative 24.2 % LAB HEMETOLOGY METHOD 08/18/2025 2:25 PM EDT [facility] Monocytes Relative 7.6 % LAB HEMETOLOGY METHOD 08/18/2025 2:25 PM EDT [facility] Eosinophils Relative 3.4 % LAB HEMETOLOGY METHOD 08/18/2025 2:25 PM EDT [facility] Basophils Relative 1.0 % LAB HEMETOLOGY METHOD 08/18/2025 2:25 PM EDT [facility] Immature Granulocytes Relative 0.2 % LAB HEMETOLOGY METHOD 08/18/2025 2:25 PM EDT [facility] Neutrophils Absolute 3.91 1.50 - 7.00 K/mcL LAB HEMETOLOGY METHOD 08/18/2025 2:25 PM EDT [facility] Lymphocytes Absolute 1.49 1.00 - 5.00 K/mcL LAB HEMETOLOGY METHOD 08/18/2025 2:25 PM EDT [facility] Monocytes Absolute 0.47 0.20 - 1.00 K/mcL LAB HEMETOLOGY METHOD 08/18/2025 2:25 PM EDT [facility] Eosinophils Absolute 0.21 0.00 - 0.50 K/mcL LAB HEMETOLOGY METHOD 08/18/2025 2:25 PM EDT [facility] Basophils Absolute 0.06 0.00 - 0.20 K/mcL LAB HEMETOLOGY METHOD 08/18/2025 2:25 PM EDT [facility] Immature Granulocytes Absolute 0.01 0.00 - 0.03 K/mcL LAB HEMETOLOGY METHOD 08/18/2025 2:25 PM EDT [facility] Blood Venous blood specimen / Unknown Venipuncture / Unknown 08/18/2025 11:01 AM EDT 08/18/2025 11:01 AM EDT us Dionisio Romano MD LAB BLOOD ORDERABLES Final Res ult [facility] [address] [place] [address], * Magnesium (08/18/2025 11:01 AM EDT) Magnesium 2.1 1.9 - 2.6 mg/dL LAB CHEMISTRY METHOD 08/18/2025 3:44 PM EDT [facility] Blood Venous blood specimen / Unknown Venipuncture / Unknown 08/18/2025 11:01 AM EDT 08/18/2025 11:01 AM EDT Dionisio Romano MD LAB BLOOD ORDERABLES Final Res ult Performing Organization Address [facility]/ZIP Co de Phone Number [facility] [address] [place] [address], [place] [phone] * (ABNORMAL) Hemoglobin A1c (08/18/2025 11:01 AM EDT) Pathologist [facility] Hemoglobin A1C 8.2(H) <6.5 % LAB CHEMISTRY METHOD 08/18/2025 10:09 PM EDT [facility] Mean Bld Glu Estim. 189 mg/dL LAB CHEMISTRY METHOD 08/18/2025 10:09 PM EDT [facility] Blood Venous blood specimen / Unknown Venipuncture / Unknown 08/18/2025 11:01 AM EDT 08/18/2025 11:01 AM EDT us Dionisio Romano MD LAB BLOOD ORDERABLES Final Res ult Performing Organization Address City/[facility]/ZIP Co de Phone Number [facility] [address] [place] [address], [place] [phone] * (ABNORMAL) Basic metabolic panel (08/18/2025 11:01 AM EDT) Pathologist [facility] Sodium 141 133 - 145 mmol/L LAB CHEMISTRY METHOD 08/18/2025 3:45 PM EDT [facility] Potassium 3.4(L) 3.5 - 5.5 mmol/L LAB CHEMISTRY METHOD 08/18/2025 3:45 PM EDT [facility] Chloride 110 96 - 110 mmol/L LAB CHEMISTRY METHOD 08/18/2025 3:45 PM [facility] CO2 22 21 - 32 mmol/L LAB CHEMISTRY METHOD 08/18/2025 3:45 PM [facility] Anion Gap 9 3 - 11 LAB CHEMISTRY METHOD 08/18/2025 3:45 PM [facility] Glucose 230(H) 70 - 100 mg/dL LAB CHEMISTRY METHOD 08/18/2025 3:45 PM [facility] BUN 42(H) 5 - 25 mg/dL LAB CHEMISTRY METHOD 08/18/2025 3:45 PM [facility] Creatinine 3.06(H) 0.50 - 1.10 mg/dL LAB CHEMISTRY METHOD 08/18/2025 3:45 PM [facility] eGFR 16(L) >=60 mL/min/1. 73m2 LAB CHEMISTRY METHOD 08/18/2025 3:45 PM [facility] Comment:Calculation based on the Chronic Kidney Disease Epidemiology Collaboration (CKD-EPI) equation refit without adjustment for race. BUN/Creatinine Ratio 13.7 LAB CHEMISTRY METHOD 08/18/2025 3:45 PM [facility] Calcium 8.9 8.5 - 10.5 mg/dL LAB CHEMISTRY METHOD 08/18/2025 3:45 PM [facility] Blood Venous blood specimen / Unknown Venipuncture / Unknown 08/18/2025 11:01 AM EDT 08/18/2025 11:01 AM EDT us Dionisio Romano MD LAB BLOOD ORDERABLES Final Res ult [facility] [address] [place] [address], [place] [phone] * External Diabetic Retina Eye Exam Report (07/22/2025) Anatomical Region Laterality Modality Ultrasound us Provider [facility] US PROCEDURES Final Result * MG Mammo Digital Diagnostic w Isaac bilat (11/13/2024 8:23 AM EST) Anatomical Region Laterality Modality Breast Bilateral Mammography 11/13/2024 8:11 AM EST Impressions 11/13/2024 8:21 AM EST Benign. BI-RADS CATEGORY: 2 - BENIGN RECOMMENDATION: Screening bilateral mammogram is recommended in 1 year. Mammo Location: [facility], [address] [place] [id number] -------- FINAL REPORT -------- Dictated By: Daniel Gregory Dictated Date: 11/13/2024 08:11 ET Assigned Physician: Daniel Gregory Reviewed and Electronically Signed By: Daniel Gregory Signed Date: 11/13/2024 08:21 ET Workstation ID: [id number] Transcribed By: Self Edit Transcribed Date: 11/13/2024 [...] and CC projection is performed in the [employer]iner CRMographe 2000-D unit. Computer aided detection utilizing the [...] MLO and CC projection is performed in theSensorion Senographe 2000-D unit. Computer aided detection utilizing the Age of Learningystem was utilized. FINDINGS: The breasts are again [...] recommended in 1 year. Mammo Location: [facility], [address] [place] [id number] -------- FINAL REPORT -------- Dictated By: Daniel Gregory Dictated Date: 11/13/2024 08:11 ET Assigned Physician: Daniel Gregory Reviewed and Electronically Signed By: Daniel Gregory Signed Date: 11/13/2024 08:21 ET Workstation ID: [id number] Transcribed By: Self Edit Transcribed Date: 11/13/2024 08:11 ET Dionisio Romano MD IM BI PROCEDURES Final Result * Colonoscopy (04/16/2024) [facility] Colonoscopy no interpretation , abstracted Anatomical Region Laterality Modality Other [facility] Provider HEALTH MAINTENANCE Final Result * Diabetes Foot Exam (10/09/2023) [facility] Diabetes: Annual Foot Exam abstracted [facility] Provider HEALTH MAINTENANCE Final Result * Urine Albumin Creatinine Ratio (06/21/2023) [facility] Urine Albumin Creatinine Ratio abstracted [facility] Provider HEALTH MAINTENANCE Final Result * Hepatitis C Screening (02/27/2023) [facility] Hepatitis C Screening abstracted [facility] Provider HEALTH MAINTENANCE Final Result * LUCRECIA DEXA AXIAL SKELETON (12/05/2022 5:38 PM EST) Anatomical Region Laterality Modality Mammography 12/05/2022 11:1 5 AM EST Narrative 12/05/2022 5:38 PM EST [facility] Diagnostic Imaging Department [address] [place] [address] Patient: TALIA WATTSO.B./Age/Sex: 1950 - 71 - F Unit#: [id number] Location/Status: SPDIMAM/REG CLI Mnemonic/Ordering Site: MAMDEXAAX/SPMAM Ordering Physician: DIONISIO ROMANO MD Lucrecia Dexa Axial Skeleton - 12/05/22 - History: Low estrogen state due to menopause. On omeprazole. Comparison: 08/10/14 Findings: Bone densitometry is performed utilizing dual energy x-ray absorptiometry (DXA) in the Signiant unit. The lumbar spine and proximal femora [...] 0.1 percent. IMPRESSION: Normal bone mineral density. [id number] Dictating Physician: LATRICE SIMS MD Electronically Signed by: LATRICE SIMS MD Dic Date/Time: 12/05/221736 Sign date/Time: 12/05/221737 Procedure Note Latrice Sims MD - 12/21/2023 [facility] Diagnostic Imaging Department [address] [place] [address] Patient: TALIA WATTS /Age/Sex: 1950 - 71 - F Unit#: [id number] [facility] Ordering Physician: DIONISIO ROMANO MD Lucrecia Dexa Axial Skeleton - 12/05/22 - History: Low estrogen state due to menopause. On omeprazole. Comparison: 08/10/14 Findings: Bone densitometry is performed utilizing dual energy x-ray absorptiometry(DXA) in the Signiant unit. The lumbar spine and proximal femora [...] 0.1 percent. IMPRESSION: Normal bone mineral density. [id number] Dictating Physician: LATRICE SIMS MD Electronically Signed by: LATRICE SIMS MD Dic Date/Time: 12/05/221736 Sign date/Time: 12/05/221737 Dionisio Romano MD IMG BI PROCEDURES Final Result * Lipid panel (06/01/2021) LDL/HDL Ratio 3 0 - 4 Triglycerides 125 0 - 150 mg/dL Cholesterol 142 0 - 200 mg/dL HDL 57 >=40 mg/dL LDL Cholesterol 60 0 - 100 mg/dL Blood Venous blood specimen / Unknown Historical Provider LAB BLOOD ORDERABLES Adilia l Result from Last 3 Months or Most Recently Relevant to Health Maintenance Insurance [facility] MEDICARE Member Subscriber Plan / Payer (Ef fective 2023-Present) Name:Talia Watts Relation to Subscriber:Self Name:Talia Watts Payer ID:[id number] Group ID:[id number] Type:Not on file Address: [place] [address] [address] [address] Care Teams Managed Care Manager Relationship Specialty Start Date End Date Dionisio Romano MD [address] [address] PCP - General Internal Medicine 02/25/13
== END 2025-09-23 09:06 | disposition home or self-care (01) ==
PROVIDERS: PCP Internal Medicine; Visit Provider Internal Medicine Hypertension Specialist
DX: E11.22 Type 2 diabetes mellitus with diabetic chronic kidney disease (principal); N18.4 Chronic kidney disease, stage 4 (severe); Z79.4 Long term (current) use of insulin; N17.9 Acute kidney failure, unspecified; I12.9 Hypertensive chronic kidney disease with stage 1 through stage 4 chronic kidney disease, or unspecified chronic kidney disease; D63.1 Anemia in chronic kidney disease; N40.1 Benign prostatic hyperplasia with lower urinary tract symptoms
CPT/HCPCS: 99214

== ENCOUNTER → 2025-09-23 08:49 | Outpatient (BNVA) | payer OTHER, SELFPAY | PROVIDERS: PCP Internal Medicine; Visit Provider Internal Medicine Hypertension Specialist | DX: E11.22 Type 2 diabetes mellitus with diabetic chronic kidney disease (principal); N18.4 Chronic kidney disease, stage 4 (severe); N17.9 Acute kidney failure, unspecified; I10 Essential (primary) hypertension; D63.1 Anemia in chronic kidney disease; N25.81 Secondary hyperparathyroidism of renal origin | CPT/HCPCS: 96372; 99212; Q5106 ==

== ENCOUNTER 2025-10-19 14:12 | Outpatient (REF) | payer OTHER, SELFPAY ==
--- OUTSIDE RECORDS SUMMARY | 2025-07-30 04:30 | XMS_ITS | Continuity of Care Document ---
Author Organization [facility] Address [address] [place] [address] Dr [address] [place] [address] Phone Care Team Providers Care Vault Installer Name Role Phone Elbert AVILES, RVT, RPVI, [...] Mins- [place] & [place] [facility], [address] [place] [address] Dr Mcfadden [address]V[place]hya [place], [id number], [place] tel:[phone] CVR - [facility] Localized edemaCramp and spasmRestless legs syndromeVenous insufficiency (chronic) (peripheral)Typ e 2 diabetes mellitus without complicationsEs sential (primary) hypertension Sep- Elbert AVILES RVT, MIRZA Claudio. [address] [facility], [address], [facility], [id number] , [place]. tel:[phone] Referring Provider: Diana Hamm, [address] [place] [address] [facility], [address], [place], [address]. tel:[phone] [place] [facility], [address] [place] [address] Dr Mcfadden [address] [place], [id number], [place] tel:[phone] CVR - [place] - [place] Chronic venous hypertension (idiopathic) with other complications of bilateral lower extremity Sep- 5 Elbert AVILES RVT, MIRZA Claudio. [address] [facility], [address], [facility], [id number] , [place]. tel:[phone] Referring Provider: Diana Hamm, [address] [place] [address] [facility], [place] [address], [place], [address]. tel:[phone] Office/Oupt E&M New Pt 45 Mins- [place] & [place] [facility], [address] [place] [address] Dr Mcfadden [address]Suite Vidhya Zhao [place], [id number], [place] tel:[phone] CVR - [facility] Chronic venous hypertension (idiopathic) with other complications of bilateral lower extremityLymphe brenda, not elsewhere classifiedType 2 diabetes mellitus without complicationsRe stless legs syndromeEssenti al (primary) hypertensionCra mp and spasmLocalized edema Avel-2 4 Elbert AVILES RVT, MIRZA Claudio. [address] [facility], [address], [place], [id number] , [place]. tel:[phone] Referring Provider: Diana Hamm, [address] [place] [address] [facility], [facility] 200, [place], [address]. tel:[phone] [place] [facility], [address] [place] [address] Dr Mcfadden [address]Suite [place]hya Zhao [place], [id number], [place] tel:[phone] CVR - [facility] Chronic venous hypertension (idiopathic) with other complications of bilateral lower extremity Avel-2 5-202 4 Elbert AVILES, RVT, RPVI González. [address] [facility], [address], [place], [id number] , [place]. tel:[phone] Referring Provider: Diana Romano MD Nor[place], [address] [facility] [place] [address] [facility], [address], [place], [address]. tel:[phone] Family History Family Member Type Diagnosis Age At Onset No Information Payers Payer name Insurance type Covered libertarian ID Krista fregoso(s) [facility] [id number] Social History Type Description Quantity Date Captured [...]
--- OUTSIDE RECORDS SUMMARY | 2025-10-19 17:34 | XMS_ITS | Clinical Summary ---
Author Organization [facility] Address [address] [place], [place] [id number] Phone Care Team Providers Care Barmaid Name Role Phone Diana Romano MD Primary Care Provider [phone] Boubacar Cabrera MD Unavailable [phone] Martín De Luna MD Unavailable [phone] Allergies No known active allergies Medications atorvastatin [...] long-term current use of insulin Overview (04/11/2023): [facility] & Dr. Nielson Assessment & Plan (04/23/2025 [...] to cut back on humalog when eating pillow cleaner meals and/or when she will be more active after. Continue to work on eating healthy & keeping active, as able. To call or send in BG with problems with glycemic control. Up to date with ophtho. 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 Will forward note to [facility]. They should fax us with any paperwork [...] her glucose levels. Up to date with [facility]. Sees podiatry. Labs were done with renal [...] her glucose levels. Up to date with [facility]. Sees podiatry. Labs ordered Assessment & Plan [...] Sees podiatry. Will get recent labs from [facility] Assessment & Plan (10/24/2023 2:34 PM EST): [...] Team Description 08/06/2025 Telephone [facility] [address] [place] [address] Whitley Salas MA Labs 08/05/2025 Telephone [facility] [address] [place] [address] Marli Call [place] 08/04/2025 9:00 AM EDT Office Visit [facility] [address] [place] [address] Julienne Vivas, PAPercyC Type 2 diabetes mellitus [...] AM EST Office Visit [facility] [address] [place] [address] Julienne Vivas PA-C [address] [place] [address] 01/22/2026 10:00 AM EST Office Visit [facility] [address] [place] [address] Winter Zaman MD [address] [place] [address] 05/04/2026 9:00 AM EDT Office Visit [facility] [address] [place] [address] Julienne Vivas PA-C [address] [place] [address] Health Maintenance Due Date Last Done Comments [...] HEMOGLOBIN A1C 8.3(H) 4.3 - 5.8 % [facility] Blood 04/23/2025 11:1 7 AM EDT 04/23/2025 11:21 AM EDT us Winter Zaman MD LAB BLOOD BKR ORDERABL ES Final Result [address] [address] * (ABNORMAL) Basic metabolic panel (04/23/2025 11:17 AM EDT) SODIUM 137 133 - 146 mmol/L [facility] CHLORIDE 102 96 - 108 mmol/L [facility] POTASSIUM 4.3 3.3 - 5.1 mmol/L [facility] CO2 25 21 - 35 mmol/L [facility] BUN 46(H) 6 - 19 mg/dL [facility] CREATININE 2.40(H) 0.5 - 1.5 mg/dL [facility] GLUCOSE 238(H) 70 - 99 mg/dL [facility] CALCIUM 9.1 8.4 - 10.3 mg/dL [facility] EGFR 21(L) >59 mL/min/1.7 3m2 [facility] Comment:Estimated glomerular filtration rate calculated using the CKD-EPI refit equation. ANION GAP 14 10 - 20 mmol/L [facility] Blood 04/23/2025 11:1 7 AM EDT 04/23/2025 11:22 AM EDT Winter Zaman MD LAB BLOOD BKR ORDERABL ES Final Result [facility] [address] [place] [address] from Last 3 Months or Most Recently Relevant to Health Maintenance Insurance [facility] [employer] MEDICARE REPLACEMENT [facility] MEDIC[facility]ACEMENT [facility] RE[facility] MEDICARE REPLACEMENT Care Teams Barmaid Relationship Specialty Start Date End Date Diana Romano MD [address] [place] [address] [address] [place] [address] PCP - General Internal Medicine 02/22/23 Boubacar Cabrera MD 300 [facility] [address] [place] [address] Cardiology 10/24/23 Martín De Luna MD 300 [facility] [address] [place] [address] Nephrology 04/23/25 Additional Source Comments The information contained in this document represents components of the legal health record. It is not the complete legal health record.[facility]
--- OUTSIDE RECORDS SUMMARY | 2025-10-19 17:35 | XMS_ITS | Data Portability ---
Author Organization [facility], [facility] Address [address] [place] [phone] Care Team Providers Care Sausage Mixer Name Role Phone [facility] Primary Care Provider [phone] HIM [facility] OTHER Assessment Encounter Date Assessment Date Assessment LastModified by Organization Details LastModified Time 10/02/2024 10/02/2024 As noted, we ochoa e called to see this patient regarding concerns of shob and weakness. Evaluation in the field was performed by my data abstractor colleague, as noted above, I provided real-time [...] or plasma 2024 025 BALJIT Vann Yohan, [address] [place] [address], [phone] 21:34:24 Referral None recorded. Procedures None recorded. [...] height Body weight Body temperature Oxygen saturation Systolic And Diastolic Provider Name and Address Organization Details Last Updated DateTime 17 /min 76 /min 167.64 cm 02236.2 4 g 98.3 [degF] 94 % 160/60 mm[Hg] Not Available [facility] 17:47:35 Date Recorded Respiratory rate Heart rate Oxygen saturation Systolic And Diastolic Provider Name and Address Organization Details Last Updated DateTime 10/02/2024 18 /min 83 /min 93 % 132/60 mm[Hg] Not Available [facility] 19:18:13 Social History None recorded. Functional Status None recorded. Mental Status None recorded. Family History Nothing Reported. Medical History No medical history recorded. Gynecological HistoryNo gynecological history recorded. Obstetrics History GPAL:G 0 P 0 0 0 0 Past Encounters Encounter ID Performer Location Encounter Start Date Encounter Closed Date Diagnosis/Indication Diagnosis SNOMED-CT Code Diagnosis ICD10 Code Diagnosis IMO Codes Diagnosis Note [id number] Brina Hurd MD [facility] [address] [place] [phone] 10/02/2024 19:18:11 10/02/2024 23:20:15 Postoperative visit 075859471 Z48.89 Dyspnea 028670775 R06.00 [id number] Jasmyn Wooten MD [facility] [address] [place] [phone] 02/02/2025 17:47:28 02/03/2025 19:30:55 Acute exacerbation of chronic congestive heart failure 163560768 I50.9 Health Concerns Section Related Observation LastModified by Organization Detai ls LastModified Time None Recorded Concern Status LastModified by Organization Details LastModified Time None Recorded Advance Directives Directive None Recorded Payers Insurance Date Sequence Insurance Name Policy Number Policy Braun Covered Member ID Braun Member ID Guarantor Name 02/02/2025 1 [facility] - DOS ON OR AFTER 2023 - DUAL ELIGIBLE - LONG TERM OPTIONS AND ONE CARE (MEDICARE REPLACEMENT/ADV ANTAGE - HMO) Milla Guzman [id number] Milla Thomas Notes Date Note Type Note Provider Name [...] 2, Cholecystectomy Comments: gallbladder removal on Sunday. [place] sob since d/c from hospital yesterday. 02 [...] ..................... ..................... ..................... ..................... ..................... ..................... ............... Vocational Training Director Note From Tyler Milligan: [id number] dispatched to [...] she recently had her gallbladder removed at [facility] on 09/30, patient reports that the [...] Patient baseline vital signs obtained as noted. [facility] was consulted and advised that the patient should go to the hospital to R/O a pulmonary embolism. Patient agreed to go to the hospital and [place] called 911 for patient. Patient report given to transporting ambulance without incident. ..................... ..................... ..................... ..................... ..................... ..................... ............... [facility] Consulted: Brina Hurd ..................... ..................... ..................... ..................... ..................... ..................... ............... Disposition: Fulfilled Brina Hurd MD [address] [facility],[address], [place], [phone], [employer] 10/02/2024 19:57:17 02/02/2025 text/html HPI: Pt c/o [...] flank pain- no urinary symptoms. Shaun RN Vocational Training Director Organization Information for [facility] [employer] Business Legal Name: [employer]. Address: [address] [place] [address], [employer] Worker: Thomas Mccloud MD CLIA No.: [id number] Vocational Training Director POC Test Results from [facility] iSTAT Chem8+ (18:05:40) Na: 137 mEq/L K: 4.0 mEq/L Cl: 106 mEq/L iCa: 1.09 mmol/L TCO2: 23 mmol/L Glu: 213 mg/dL BUN: 47 mg/dL Crea: 3.2 mg/dL Hct: 30 % Hb: 10.2 g/dL A mmol/L Attachments uploaded as part of this test result can be found under Documents section. ..................... ..................... ..................... ..................... ..................... ..................... ............... Vocational Training Director Note From Clemente Koch: [facility] makes pt contact a 74 yo F CC of edema. [facility] obtains vital signs. PT explains she has [...] but diminished sounds. PT confirms no allergies. [facility] contacts [facility] and explains above mentioned. [facility] orders labs to be done to se kidney function and electrolyte levels. Labs are obtained via 20G IV in the right ac first attempt. Istat is performed and uploaded to [facility]. After discussing labs with [facility], [facility] orders 40mg OF furosemide IV, which is [...] the need for additional lasix. PT understands. FLArlen clear. [facility] Lab Orders: BMP, serum or plasma: Performed ..................... ..................... ..................... ..................... ..................... ..................... ............... [facility] Consulted: Jasmyn Wooten ..................... ..................... ..................... ..................... ..................... ..................... ............... Disposition: Fulfilled Jasmyn Wooten MD [address] [place] [address],[address], [place], [phone], [employer] 02/03/2025 00:02:11 OBGyn Episode No OBEpisode recorded.
--- OUTSIDE RECORDS SUMMARY | 2025-10-19 17:35 | XMS_ITS | Clinical Summary ---
Author Organization 175 [facility] Address [address] [place] [address] Phone Care Team Providers Care Install Technician Name Role Phone Dionisio Romano MD Primary Care Provider [phone] Allergies No known active allergies Medications aspirin [...] 24 hr tabletIndicatio ns:Coronary artery disease involving nez perce coronary artery of nez perce heart without angina pectoris Take 1 tablet [...] each day. 90 capsule 1 5 Active atorvastatin (LIPITOR) 80 mg tablet TAKE 1 TABLET(80 MG) BY MOUTH 1 TIME EACH DAY 90 tablet 1 5 Active ketorolac (ACULAR) 0.4 % ophthalmic solution Administer 1 drop into the left eye 4 (four) times a day. Active tirzepatide (Mounjaro) 5 mg/0.5 mL injection Inject 0.5 mL (5 mg total) under the skin. Active magnesium oxide 400 mg magnesium capsule Take 1 capsule by mouth at bedtime. 90 capsule 3 5 Active potassium chloride (KLOR-CON M10) 10 mEq CR tablet Take 1 tablet (10 mEq total) by mouth 1 (one) time each day. Tablet may be swallowed whole (do not crush/chew/suck on) OR broken in half and each half swallowed separately OR dissolved (whole tablet) in ~4 ounces of water (allow ~2 minutes to dissolve, stir well and administer immediately). 90 each 2 5 Active NIFEdipine CC (ADALAT CC) 60 mg 24 hr tablet Take 1 tablet (60 mg total) by mouth 1 (one) time each day. 90 tablet 1 5 Active pantoprazole (PROTONIX) 40 mg EC tablet Take 1 tablet (40 mg total) by mouth 1 (one) time each day. 90 tablet 1 5 Active methenamine hippurate (HIPREX) 1 gram tablet TAKE 1 TABLET(1 GRAM) BY MOUTH TWICE DAILY 60 tablet 1 5 Active furosemide (LASIX) 40 mg tablet TAKE 2 TABLETS(80 MG) BY MOUTH 1 TIME EACH DAY 90 tablet 3 5 Active Active Problems Problem Noted Date Diagnosed Date Class 1 obesity due to exces s calories with serious comorbidity and body mass index (BMI) of 34.0 to 34.9 in adult 10/01/2025 Assessment & Plan (10/01/2025 12:32 PM EST): BMI 34.70. We discussed risk reduction through lifestyle choices including healthy diet, routine exercise and weight management. Continue with GLP1 injection. Type 2 diabetes mellitus wit h stage 4 chronic kidney disease, with long-term current use of insulin ([facility] V24, [facility] V28) 08/18/2025 Assessment & Plan (08/18/2025 1:00 PM EDT): Orders: Hemoglobin A1c; Future CBC and differential; Future Basic metabolic panel; Future Magnesium; Future Obesity, morbid ([facility] V24, [facility] V28) 08/18 Assessment & Plan (08/18/2025 1:00 PM EDT): Orders: Hemoglobin A1c; Future CBC and differential; Future Basic metabolic panel; Future Magnesium; Future (HFpEF) heart failure with p reserved ejection fraction ([facility] V24, [facility] V28) 12/12/2024 Assessment & Plan (10/01/2025 12:32 PM EST): Patient with history of HFpEF. She has lymphedema as well. Today she is wearing her compression stockings, has mild lower extremity edema, nonpitting. She reports that her weights have been stable with no increase. No JVD. Continue on Lasix 40 mg twice daily and metolazone as needed. She had an echocardiogram in September 2024 while hospitalized at [facility] which was reviewed. Orders: ECG 12 lead Assessment & Plan (12/12/2024 10:28 AM EST): [...] echocardiogram in September 2024 while hospitalized at [facility] which was reviewed. Abdominal pain [...] Edema 09/25/2023 Coronary artery disease invo lving nez perce coronary artery of nez perce heart without angina pectoris 03/26/2023 Assessment & Plan (10/01/2025 12:32 PM EST): Patient with history of coronary artery disease s/p CABG in 2022. She has a reassuring Nuclear stress test in December, but now has had recent onset chest pain. I am concerned that with her size and complex anatomy that the Regadenoson Nuclear stress test could give a false negative stress test. I will order a cardiac PET. She continues on aspirin, atorvastatin, carvedilol and nifedipine. Patient advised to seek emergency medical attention by calling 911 if they were to develop severe dyspnea, chest pain that did not resolve with rest or nitroglycerin, or if they were to faint. Orders: ECG 12 lead PET myocardial perfusion imaging; Future Assessment & Plan (01/12/2025 11:17 AM EST): [...] scan 02/05/2023 Atypical angina (CMS/HCC V24) 12/27/2022 Cholecystitis 12/27/2022 Nausea 12/27/2022 Shortness of breath 12/27/2022 Assessment & Plan (08/18/2025 1:00 PM EDT): Orders: Ambulatory referral to Pulmonology; Future Hemoglobin A1c; Future CBC and differential; Future Basic metabolic panel; Future Magnesium; Future Vomiting 12/27/2022 Chronic kidney disease 07/07/2022 Allergic rhinitis 02/13/2017 Diabetes mellitus type 2 wit h neurological manifestations ([facility] V24, [facility] V28) 02/13/2017 DJD (degenerative joint disease), cervical 02/13 DJD (degenerative joint disease), lumbar 017 Fatty liver 02/13/2017 GERD (gastroesophageal reflux disease) 7 Type 2 diabetes mellitus wit h cataract ([facility] V24, [facility] V28) 02/13/2017 Urinary incontinence 02/13/2017 Venous insufficiency 02/13/2017 Assessment & Plan (10/01/2025 12:32 PM EST): Edema likely secondary to venous insufficiency. Continue with furosemide. Continue with compression stockings. Educated about reducing sodium intake, elevation of extremities while seated, weight loss and exercise. Vitamin D deficiency 02/13/2017 Depression 02/08/2017 Diabetic neuropathy ([facility] V24, [facility] V28) 0 02/08/2017 Diabetic retinopathy ([facility] V24, [facility] V28) 02/08/2017 Hyperlipidemia 02/08/2017 Assessment & Plan (10/01/2025 12:32 PM EST): Continues on atorvastatin as prescribed. LDL cholesterol completed in August 2024 showing a level of 50. Orders: ECG 12 lead Assessment & Plan (12/12/2024 10:28 AM EST): Continues on atorvastatin as prescribed. LDL cholesterol completed in August 2024 showing a level of 50 which is demonstrating excellent control. Hypertension 02/08/2017 Assessment & Plan (10/01/2025 12:32 PM EST): Controlled. Continue with carvedilol, furosemide, hydralazine and nifedipine. Orders: ECG 12 lead Assessment & Plan (12/12/2024 10:28 AM EST): [...] Encounters Date Type Department Care Team Description 10/01/2025 10:40 AM EST Office Visit [facility] [address] [place] [address] Pancho Montes De Oca NP Coronary artery disease involving nez perce coronary artery of nez perce heart, unspecified whether angina present (Primary Dx); Chronic heart failure with preserved ejection fraction (HFpEF) ([facility] V24, [facility] V28); Hypertension, unspecified type; Hyperlipidemia, unspecified hyperlipidemia type; Class 1 obesity due to excess calories with serious comorbidity and body mass index (BMI) of 34.0 to 34.9 in adult; Venous insufficiency 08/19/2025 Results Follow-Up Internal Medicine - [place] [address] [place] [address] Dionisio Romano MD 08/18/2025 9:45 AM EDT Office Visit Internal [facility] - [place] [address] [place] [address] Dionisio Romano MD Pre-op examination (Primary Dx); Shortness of breath; Breast cancer screening by mammogram; Type 2 diabetes mellitus with stage 4 chronic kidney disease, with long-term current use of insulin ([facility] V24, [facility] V28); Obesity, morbid ([facility] V24, [facility] V28); End stage heart failure ([facility] V24, [facility] V28); Diarrhea, unspecified type; LFT elevation; Need for vaccination against Streptococcus pneumoniae; Encounter for subsequent annual wellness visit (AWV) in Medicare patient from Last 3 Months Immunizations Immunization Administration Dates Next Due Influenza trivalent, 0.5mL (Fluad) 65yo and olde r 08/18/2020,08/05/2020 Influenza trivalent, 0.5mL, preservative free (Fluarix; FluLaval; Fluzone) ages 6mo and older (Afluria) 3 years and older 09/24/2015 [employer] SARS-CoV-2 COVID-19, mRNA, LNP-S, preservative free 09/06/2021,02/18/2021 [...] History Medical History Date Comments Diabetic neuropathy ([facility] V24, [facility] V28) 02/08/2017 DX:Diabetic neuropathy ([facility]) Hyperlipidemia 02/08/2017 DX:Hyperlipidemi a Hypertension 02/08/2017 DX:Hypertension Diabetic retinopathy ([facility]/ C V24, [facility] V28) 02/08/2017 DX:Diabetic retinopathy ([facility] ) Depression 02/08/2017 DX:Depression History of adjustable gastric banding 02/13/2017 DX:History of adjustable gastric banding Diabetes mellitus type 2 wit h neurological manifestations ([facility] V24, [facility] V28) 02/13/2017 DX:Diabetes mellitus type 2 with neurological manifestations (HCC) Type 2 diabetes mellitus wit h eye manifestations ([facility] V24, [facility] V28) 02/13/2017 DX:Type 2 diabetes mellitus with eye manifestations (HCC) Type 2 diabetes mellitus wit h cataract ([facility] V24, [facility] V28) 02/13/2017 DX:Type 2 diabetes mellitus with [...] Insulin dependent type 2 destini betes mellitus ([facility] V24, [facility] V28) DX:Insulin depende nt type 2 diabetes mellitus (HCC) RUQ pain DX:RUQ pain Anemia Diabetes ([facility] V24, [facility] V28) Family History Medical History Relation Name [...] Sign Reading Time Taken Comments Blood Pressure 130/56 10/01/2025 10:39 AM EST Pulse 64 10/01/2025 10:39 AM EST Temperature 36.8 C (98.2 F) 08/18/2025 9:51 AM EDT Respiratory Rate 18 08/18/2025 9:51 AM EDT Oxygen Saturation 100% 10/01/2025 10:39 AM EST Inhaled Oxygen Concentration - - Weight 97.5 kg (215 lb) 10/01/2025 10:39 AM EST Height 167.6 cm (5' 6 ) 10/01/2025 10:39 AM EST Body Mass Index 34.7 10/01/2025 10:39 AM EST Plan of Treatment Upcoming Encounters Date Type Department Care Team (Late st Contact Info) Description 11/16/2025 8:15 AM EST Appointment [facility] [address] [place] [phone] 12/22/2025 9:00 AM EST Office Visit Internal Medicine - [place] [address] [facility] [address] [place] [phone] Dionisio Romano MD [address] [place] [phone] 03/25/2026 8:20 AM EDT Consult Gastroenterology - [address] [facility] [address] [facility] [address] [place] [phone] Lyla Green, YOLY [address] [facility] [address] [place] [address] Health Maintenance Due Date Last Done Comments Zoster Vaccines (2 of 2) 01/23/2020 020, 09/19/2013, 11/05/2012 Falls Risk Assessment 10/28/2022 Social Influencers of Health Screening 10/28/2022 Diabetes: Annual Urine Albumin-Creatinine Ratio (uACR) 06/21/2024 06/21/2023 Diabetes: Annual Foot Exam 10/09/2024 10/09/2023 COVID-19 Vaccine (8 - Pfizer risk season) 2026 08/06/2025, 03/12/2025, 08/06/2023, Additional history exists Diabetes: Blood Sugar Control Test (HGBA1C) 02/15/2026 08/18/2025, 01/30/2025, 06/01/2021 Diabetes: Annual GFR (Glomerular Filtration Rate) 08/18/2026 08/18/2025, 12/16/2024, 03/05/2024 Hypertension/CHF/CAD Annual BMP Blood Test 08/18/2026 08/18/2025, 12/16/2024, 03/05/2024 Medicare Annual Wellness Visit 08/18/2026 08/18/2025 Diabetes: Annual Retina Eye Exam 09/29/2026 09/29/2025, 07/22/2025, 05/12/2024 Breast Cancer Screening 11/13/2026 11/13/20, [...] Procedure Name Priority Date/Time Associated Diagnosis Comments ECG 12-LEAD Routine 10/01/2025 12:32 PM EST Coronary artery disease involving nez perce coronary artery of nez perce heart, unspecified whether angina present Chronic heart failure with preserved ejection fraction (HFpEF) ([facility] V24, CMS/HCC V28) Hypertension, unspecified type Hyperlipidemia, unspecified hyperlipidemia type EXTERNAL DIABETIC RETINA EYE EXAM 09/29/2025 EXTERNAL CLINICAL LAB 09/21/2025 CBC WITH AUTO DIFFERENTIAL Routine 08/18/2025 11:01 AM EDT Shortness of breath Breast cancer screening by mammogram Type 2 diabetes mellitus with stage 4 chronic kidney disease, with long-term current use of insulin ([facility] V24, CMS/HCC V28) Obesity, morbid (CMS/HCC V24, CMS/HCC V28) End stage heart failure (CMS/HCC V24, CMS/HCC V28) Diarrhea, unspecified type LFT elevation HEMOGLOBIN A1C Routine 08/18/2025 11:01 AM EDT Shortness of breath Breast cancer screening by mammogram Type 2 diabetes mellitus with stage 4 chronic kidney disease, with long-term current use of insulin ([facility] V24, CMS/HCC V28) Obesity, morbid (CMS/HCC V24, CMS/HCC V28) End stage heart failure (CMS/HCC V24, CMS/HCC V28) Diarrhea, unspecified type LFT elevation CBC AND DIFFERENTIAL Routine 08/18/2025 11:01 AM EDT Shortness of breath Breast cancer screening by mammogram Type 2 diabetes mellitus with stage 4 chronic kidney disease, with long-term current use of insulin ([facility] V24, [facility]/HCC V28) Obesity, morbid (CMS/HCC V24, CMS/HCC V28) End stage heart failure (CMS/HCC V24, CMS/HCC V28) Diarrhea, unspecified type LFT elevation BASIC METABOLIC PANEL Routine 08/18/2025 11:01 AM EDT Shortness of breath Breast cancer screening by mammogram Type 2 diabetes mellitus with stage 4 chronic kidney disease, with long-term current use of insulin ([facility] V24, CMS/HCC V28) Obesity, morbid (CMS/HCC V24, CMS/HCC V28) End stage heart failure (CMS/HCC V24, CMS/HCC V28) Diarrhea, unspecified type LFT elevation MAGNESIUM Routine 08/18/2025 11:01 AM EDT Shortness of breath Breast cancer screening by mammogram Type 2 diabetes mellitus with stage 4 chronic kidney disease, with long-term current use of insulin (CMS/HCC V24, CMS/HCC V28) Obesity, morbid (CMS/HCC V24, CMS/HCC V28) End stage heart failure (CMS/HCC V24, CMS/HCC V28) Diarrhea, unspecified type LFT elevation EXTERNAL DIABETIC RETINA EYE EXAM 07/22/2025 [facility] MAMMO DIGITAL DIAGNOSTIC W ISAAC BILAT Routine 11/13/2024 8:23 AM EST Category 3 mammography result with short follow-up interval suggested for probably benign finding COLONOSCOPY Routine 04/16/2024 DIABETES FOOT EXAM Routine 10/09/2023 URINE ALBUMIN CREATININE RATIO Routine 06/21/2023 HEPATITIS C SCREENING Routine 02/27/2023 [facility] DEXA AXIAL SKELETON Routine 12/05/2022 5:38 PM EST Encounter for screening for osteoporosis LIPID PANEL Routine 06/01/2021 from Last 3 Months or Most Recently Relevant to Health Maintenance Results * ECG 12 lead (10/01/2025 12:32 PM EST) Ventricular Rate ECG 64 BPM GEMUSE Atrial Rate 64 BPM GEMUSE P-R Interval 178 ms GEMUSE QRS Duration 88 ms GEMUSE Q-T Interval 448 ms GEMUSE QTc 462 ms GEMUSE P Wave [place] 62 degrees GEMUSE R [place] -61 degrees GEMUSE T [place] -9 degrees GEMUSE ECG Interpretation Normal sinus rhythm Left anterior fascicular block Abnormal ECG When compared with ECG of 27-DEC-2009 10:56, T wave inversion now evident in Inferior leads Confirmed by MD DONI, DAYO ([id number]) on 10/01/2025 5:11:39 PM GEMUSE 10/01/2025 10:5 3 AM EST 10/01/2025 5:11 PM EST us Pancho Montes De Oca HEADER SETUP OPERATOR ECG ORDERABLES Edited Resu lt - Final GEMUSE * External Diabetic Retina Eye Exam Report (09/29/2025) Only the most recent of2 resultswithin the time period is included. Anatomical Region Laterality Modality Ultrasound us Provider [facility] IM[facility] US PROCEDURES Final Result * External clinical lab (09/21/2025) Provider [facility] LAB BLOOD ORDERABLES Fin al Result * (ABNORMAL) CBC auto differential (08/18/2025 11:01 AM EDT) WBC 6.2 4.8 - 10.8 K/mcL LAB HEMETOLOGY METHOD 08/18/2025 2:[address] [facility] RBC 3.30(L) 3.80 - 4.80 M/mcL LAB HEMETOLOGY METHOD 08/18/2025 2:[address] [facility] Hemoglobin 9.3(L) 11.5 - 16.0 g/dL LAB HEMETOLOGY METHOD 08/18/2025 2:[address] [facility] Hematocrit 29.4(L) 35.0 - 47.0 % LAB HEMETOLOGY METHOD 08/18/2025 2:[address] [facility] MCV 88.8 79.0 - 98.0 FL LAB HEMETOLOGY METHOD 08/18/2025 2:[address] [facility] MCH 28.1 27.0 - 32.0 pcg LAB HEMETOLOGY [facility] MCHC 31.6(L) 32.0 - 37.0 g/dL LAB HEMETOLOGY METHOD 08/18/2025 2:[address] [facility] RDW 17.7(H) 11.0 - 15.0 % LAB HEMETOLOGY METHOD 08/18/2025 2:[address] [facility] Platelets 224 130 - 400 K/mcL LAB HEMETOLOGY METHOD 08/18/2025 2:[address] [facility] MPV 11.1(H) 7.0 - 11.0 FL LAB HEMETOLOGY METHOD 08/18/2025 2:[address] [facility] NRBC 0.0 <1.0 % LAB HEMETOLOGY METHOD 08/18/2025 2:[address] [facility] NRBC Absolute 0.00 <0.10 K/mcL LAB HEMETOLOGY METHOD 08/18/2025 2:[address] [facility] Neutrophils Relative 63.6 % LAB HEMETOLOGY METHOD 08/18/2025 2:[address] [facility] Lymphocytes Relative 24.2 % LAB [facility]EM[facility]OLOGY [facility] Monocytes Relative 7.6 % LAB HEMETOLOGY METHOD 08/18/2025 2:25 PM [facility] Eosinophils Relative 3.4 % LAB HEMETOLOGY METHOD 08/18/2025 2:[address] [facility] Basophils Relative 1.0 % LAB HEMETOLOGY METHOD 08/18/2025 2:[address] [facility] Immature Granulocytes Relative 0.2 % LAB HEMETOLOGY METHOD 08/18/2025 2:25 PM [facility] Neutrophils Absolute 3.91 1.50 - 7.00 K/mcL LAB HEMETOLOGY METHOD 08/18/2025 2:[address] [facility] Lymphocytes Absolute 1.49 1.00 - 5.00 K/mcL LAB HEMETOLOGY METHOD 08/18/2025 2:[address] [facility] Monocytes Absolute 0.47 0.20 - 1.00 K/[facility] LAB HEMETOLOGY METHOD 08/18/2025 2:[address] [facility] Eosinophils Absolute 0.21 0.00 - 0.50 K/[facility] LAB HEMETOLOGY METHOD 08/18/2025 2:[address] [facility] Basophils Absolute 0.06 0.00 - 0.20 K/[facility] LAB HEMETOLOGY METHOD 08/18/2025 2:[address] [facility] Immature Granulocytes Absolute 0.01 0.00 - 0.03 K/[facility] LAB HEMETOLOGY METHOD 08/18/2025 2:[address] [facility] Blood Venous blood specimen / Unknown Venipuncture / Unknown 08/18/2025 11:01 AM EDT 08/18/2025 11:01 AM EDT us Dionisio Romano MD LAB BLOOD ORDERABLES Final Res ult Performing Organization Address City/[facility]/ZIP Co de Phone Number [facility] [address] [place] [address], [place] [phone] * Magnesium (08/18/2025 11:01 AM EDT) Magnesium 2.1 1.9 - 2.6 mg/dL LAB CHEMISTRY METHOD 08/18/2025 3:[address] [facility] Blood Venous blood specimen / Unknown Venipuncture / Unknown 08/18/2025 11:01 AM EDT 08/18/2025 11:01 AM EDT us Dionisio Romano MD LAB BLOOD ORDERABLES Final Res ult [facility] [address] [place] [address], [place] [phone] * (ABNORMAL) Hemoglobin A1c (08/18/2025 11:01 AM EDT) Pathologist [facility] Hemoglobin A1C 8.2(H) <6.5 % LAB CHEMISTRY METHOD 08/18/2025 10:[address] [facility] Mean Bld Glu Estim. 189 mg/dL LAB CHEMISTRY METHOD 08/18/2025 10:[address] [facility] Blood Venous blood specimen / Unknown Venipuncture / Unknown 08/18/2025 11:01 AM EDT 08/18/2025 11:01 AM EDT us Dionisio Romano MD LAB BLOOD ORDERABLES Final Res ult [facility] [address] [place] [address], * (ABNORMAL) Basic metabolic panel (08/18/2025 11:01 AM EDT) [facility] Sodium 141 133 - 145 mmol/L LAB CHEMISTRY METHOD 08/18/2025 3:45 PM [facility] Potassium 3.4(L) 3.5 - 5.5 mmol/L LAB CHEMISTRY METHOD 08/18/2025 3:45 PM [facility] Chloride 110 96 - 110 mmol/L LAB CHEMISTRY METHOD 08/18/2025 3:[address] [facility] CO2 22 21 - 32 mmol/L LAB CHEMISTRY METHOD 08/18/2025 3:45 PM [facility] Anion Gap 9 3 - 11 LAB CHEMISTRY METHOD 08/18/2025 3:45 PM [facility] Glucose 230(H) 70 - 100 mg/dL LAB CHEMISTRY METHOD 08/18/2025 3:45 PM [facility] BUN 42(H) 5 - 25 mg/dL LAB CHEMISTRY METHOD 08/18/2025 3:[address] [facility] Creatinine 3.06(H) 0.50 - 1.10 mg/dL LAB CHEMISTRY METHOD 08/18/2025 3:[address] [facility] eGFR 16(L) >=60 mL/min/1. 73m2 LAB CHEMISTRY METHOD 08/18/2025 3:[address] [facility] Comment:Calculation based on the Chronic Kidney Disease Epidemiology Collaboration (CKD-EPI) equation refit without adjustment for race. BUN/Creatinine Ratio 13.7 LAB CHEMISTRY METHOD 08/18/2025 3:[address] [facility] Calcium 8.9 8.5 - 10.5 mg/dL LAB CHEMISTRY METHOD 08/18/2025 3:[address] [facility] Blood Venous blood specimen / Unknown Venipuncture / Unknown 08/18/2025 11:01 AM EDT 08/18/2025 11:01 AM EDT us Dionisio Romano MD LAB BLOOD ORDERABLES Final Res ult [facility] [address] [place] [address], * MG Mammo Digital Diagnostic w Isaac bilat (11/13/2024 8:23 AM EST) Anatomical Region Laterality Modality Breast Bilateral Mammography 11/13/2024 8:11 AM EST Impressions 11/13/2024 8:21 AM EST Benign. BI-RADS CATEGORY: 2 - BENIGN RECOMMENDATION: Screening bilateral mammogram is recommended in 1 year. Mammo Location: [facility], [facility], [address] [place] [id number] -------- FINAL REPORT -------- Dictated By: Daniel Gregory Dictated Date: 11/13/2024 08:11 ET Assigned Physician: Daniel Gregory Reviewed and Electronically Signed By: Daniel Gregory Signed Date: 11/13/2024 08:21 ET Workstation ID: [id number] Transcribed By: Self Edit Transcribed Date: 11/13/2024 [...] and CC projection is performed in the [employer] 2000-D unit. Computer aided detection utilizing the [...] MLO and CC projection is performed in the[employer]rowd 2000-D unit. Computer aided detection utilizing the [...] is recommended in 1 year. Mammo Location: [facility], [facility], [address] [place] [id number] -------- FINAL REPORT -------- Dictated By: Daniel Gregory Dictated Date: 11/13/2024 08:11 ET Assigned Physician: Daniel Gregory Reviewed and Electronically Signed By: Daniel Gregory Signed Date: 11/13/2024 08:21 ET Workstation ID: [id number] Transcribed By: Self Edit Transcribed Date: 11/13/2024 08:11 ET Dionisio Romano MD IMG BI PROCEDURES Final Result * Colonoscopy (04/16/2024) [facility] Colonoscopy no interpretation , abstracted Anatomical Region Laterality Modality Other Historical Provider HEALTH MAINTENANCE Final Result * Diabetes Foot Exam (10/09/2023) [facility] Diabetes: Annual Foot Exam abstracted Historical Provider HEALTH MAINTENANCE Final Result * Urine Albumin Creatinine Ratio (06/21/2023) [facility] Urine Albumin Creatinine Ratio abstracted Historical Provider HEALTH MAINTENANCE Final Result * Hepatitis C Screening (02/27/2023) [facility] Hepatitis C Screening abstracted Historical Provider HEALTH MAINTENANCE Final Result * [facility] DEXA AXIAL SKELETON (12/05/2022 5:38 PM EST) Anatomical Region Laterality Modality Mammography 12/05/2022 11:1 5 AM EST Narrative 12/05/2022 5:38 PM EST [facility] Diagnostic Imaging Department [address] [place] [address] [id number] Patient: TALIA GUZMAN./Age/Sex: 1950 - 71 - F Unit#: [id number] Location/Status: SPDIMAM/REG CLI Mnemonic/Ordering Site: MAMDEXAAX/SPMAM Ordering Physician: DIONISIO ROMANO MD [facility] Dexa Axial Skeleton - 12/05/22 - History: Low estrogen state due to menopause. On omeprazole. Comparison: 08/10/14 Findings: Bone densitometry is performed utilizing dual energy x-ray absorptiometry (DXA) in the [employer] unit. The lumbar spine and proximal femora [...] 0.1 percent. IMPRESSION: Normal bone mineral density. [id number] Dictating Physician: LATRICE SIMS MD Electronically Signed by: LATRICE SIMS MD Dic Date/Time: 12/05/221736 Sign date/Time: 12/05/221737 Procedure Note Latrice Sims MD - 12/21/2023 [facility] Diagnostic Imaging Department [address] [place], [place] [id number] Patient: TALIA GUZMAN./Age/Sex: 1950 - 71 - F Unit#: [id number] Location/Status: SPDIMAM/REG CLI Mnemonic[facility] Ordering Physician: DIONISIO ROMANO MD [facility] Dexa Axial Skeleton - 12/05/22 - History: Low estrogen state due to menopause. On omeprazole. Comparison: 08/10/14 Findings: Bone densitometry is performed utilizing dual energy x-ray absorptiometry(DXA) in the [employer] unit. The lumbar spine and proximal femora [...] 0.1 percent. IMPRESSION: Normal bone mineral density. [id number] Dictating Physician: LATRICE SIMS MD Electronically Signed [...] Plan / Payer (Ef fective 2023-Present) Name:Talia Guzman Relation to Subscriber:Self Name:Talia Guzman Payer ID:[id number] Group ID:[id number] Type:Not on file Address: [place] [address] [address] [id number] Care Teams Install Technician Relationship Specialty Start Date End Date Dionisio Romano MD [address] [phone] PCP - General Internal Medicine 02/25/13
[2025-10-19 19:03] LABS: Hematocrit 30.9 % (37.0-47.0); Hemoglobin 9.8 g/dl (12.0-16.0); Mean Corpuscular HGB Conc 31.7 g/dl (31.0-35.0); Mean Corpuscular Hemoglobin 28.4 pg (27.0-33.0); Mean Corpuscular Volume 89.6 fL (80.0-98.0); NRBC Abs Auto 0.000 X10*3/uL (0.0-0.012); NRBC Pct Auto 0.0 /100WBC (0.0-0.2); Platelet Count 270 X10*3/uL (160-400); Red Blood Count 3.45 X10*6/uL (4.20-5.50); White Blood Count 6.9 X10*3/uL (4.8-10.8)
[2025-10-19 20:02] LABS: Anion Gap 15 (12-20); Blood Urea Nitrogen 67 mg/dL (9-16); Calcium 9.3 mg/dL (8.4-10.2); Carbon Dioxide 22 mmol/L (22-29); Chloride 108 mmol/L (96-108); Estimated Glomerular Filt Rate 14; Ferritin 152 ng/mL (10-250); Iron 65 mcg/dL (30-160); Percent Iron Saturation 24 % (15-50); Potassium 4.5 mmol/L (3.3-5.1); Sodium 140 mmol/L (135-145); Total Iron Binding Capacity 268 mcg/dL (228-428); Unsaturated Iron Binding 203 ug/dL
== END 2025-10-19 14:13 | disposition home or self-care (01) ==
LOC: HO.HKASLDS 14:12
PROVIDERS: PCP Internal Medicine; Visit Provider Internal Medicine Hypertension Specialist
DX: E11.22 Type 2 diabetes mellitus with diabetic chronic kidney disease (principal); N18.4 Chronic kidney disease, stage 4 (severe); D63.1 Anemia in chronic kidney disease
CPT/HCPCS: 36415; 80048; 82728; 83540; 85027

== ENCOUNTER 2025-10-21 08:56 | Outpatient (AMB) | payer OTHER, SELFPAY ==
--- OUTSIDE RECORDS SUMMARY | 2025-07-30 04:30 | XMS_ITS | Continuity of Care Document ---
Author Organization [facility] Address [address] [place] [address] [address] [place] [address] Phone Care Team Providers Care Attraction Worker Name Role Phone Elbert AVILES, RVT, RPVI, González Unavailable U navailable Procedures Procedure Date Office/Outpt E&M Established 15 Mins- CT & [place] Duplex Scan-extrem Veins; Comp- CT & [place] Office/Oupt E&M New Pt 45 Mins- CT & [place] Duplex Scan-extrem Veins; Comp- CT & [place] Advance Directives Directive Yes / No Effective Date File Name Other Directive No 07/30/2025 N/A WARNING:The information contained in this section is historical and is provided for information only and does not constitute a legal document or any assurance that the information is still accurate. Please verify the information with the mora of the legal document before using it for clinical purposes. Encounters Encounter Description Practice Location Reason(s) For Visit Diagnoses Date Provider Providers Copied on Encounter Office/Outpt E&M Established 15 Mins- CT & [place] [facility], [address] [place] [address] Dr [address], [id number], [place] tel:[phone] [facility] Localized edemaCramp and spasmRestless legs syndromeVenous insufficiency (chronic) (peripheral)Typ e 2 diabetes mellitus without complicationsEs sential (primary) hypertension Sep- Elbert AVILES RVT, MIRZA Claudio. [address] [facility], [address], [facility] [place] [place], [id number] , [place]. tel:[phone] Referring Provider: Diana Hamm, [address] [facility], [address], [facility] [place], [address]. tel:[phone] [place] [facility], [address] [place] [address] [address] [place], [id number], [place] tel:[phone] [facility] - [place] [facility] [place] Chronic venous hypertension (idiopathic) with other complications of bilateral lower extremity Sep- 5 Elbert AVILES RVT, MIRZA Claudio. [address] [facility], [address], [facility] [place], [id number] , [place]. tel:[phone] Referring Provider: Diana Hamm, [address] [facility], [place] [address], [place], [address]. tel:[phone] Office/Oupt E&M New Pt 45 Mins- CT & [place] [facility], [address] [place] [address] Dr [address]Suite [place] Zhao [place], [id number], [place] tel:[phone] [facility] - [facility] Chronic venous hypertension (idiopathic) with other complications of bilateral lower extremityLymphe brenda, not elsewhere classifiedType 2 diabetes mellitus without complicationsRe stless legs syndromeEssenti al (primary) hypertensionCra mp and spasmLocalized edema Avel-2 4 Elbert AVILES RVT, MIRZA Claudio. [address] [facility], [address], [place], [place], [id number] , [place]. tel:[phone] Referring Provider: Diana Hamm, [address] [facility], [facility] [address], [facility] [place] [place], [address]. tel:[phone] [place] [facility], [address] [place] [address] [address]Suite [place] Zhao [place], [id number], [place] tel:[phone] [facility] - [facility] Chronic venous hypertension (idiopathic) with other complications of bilateral lower extremity Avel-2 5-202 4 Elbert AVILES, RVT, RPVI González. [address] [facility], [address], [place], [id number] , [place]. tel:[phone] Referring Provider: Diana Romano MD Noris, [address] [facility] [address] [facility], [address], [place], [address]. tel:[phone] Family History Family Member Type Diagnosis Age At Onset No Information Payers Payer name Insurance type Covered green party ID Krista fregoso(s) [facility] [id number] Social History Type Description Quantity Date Captured Comments Alcohol Use Details Unknown Caffeine Use Details Unknown Tobacco Use Status Current non-smoker Smoking Status Never Smoker Non-Smoking Tobacco Use Details : No Details Available : No Details Available Sex Female Vital Signs Date / Time: Height Weight BMI Pulse Rate Blood Pressure Temperature Respiratory Rate Body Surface Area Head Circumference Head Circ. Percentile Wt./[place]. Percentile BMI percentile Pulse Ox Inhaled Ox 97.520 kg (215.00 lbs) 34.8 0 kg/m eter (2) 134/82 mm[Hg] Chief Complaint And Reason For Visit No Information Reason For Referral Reason For Referral No Information Plan Of Treatment Date Type Action Status Goal Diet education completed Goal Diet education completed Referral Ordered: Weight management: Referral to physician timeframe: 3 Months (related to Body mass index (BMI) 34.0-34.9, adult) ordered Referral Ordered: Weight management: Referral to physician timeframe: 3 Months (related to Body mass index (BMI) 34.0-34.9, adult) ordered History Of Present Illness Encounter Date Complaint History Of Prese nt Illness No Information Functional Status Date Functional Assessmen t No Information Instructions Date Instruction Additional Infor mirlande Lifestyle education Related to B brandy mass index (BMI) 34.0-34.9, adult Giving Encouragement to exercise Related to Body mass index (BMI) 34.0-34.9, adult Diet education Related to Body mass index (BMI) 34.0-34.9, adult Patient education booklet given Related to Localized edema Compression stocking usage as conservative measure Related to Localized edema Patient education booklet given Related to Chronic venous hypertension (idiopathic) with other complications of bilateral lower extremity Compression stocking usage as conservative measure Related to Chronic venous hypertension (idiopathic) with other complications of bilateral lower extremity Lifestyle education Related to B brandy mass index (BMI) 34.0-34.9, adult Giving Encouragement to exercise Related to Body mass index (BMI) 34.0-34.9, adult Diet education Related to Body mass index (BMI) 34.0-34.9, adult Assessments Type Assessment Date No Information Patient Care Teams Name Effective Dates (start - stop) Status Members No Information
--- NOTE | 2025-10-21 09:09 | HO.NEPHOV ---
Vital Signs 10/21/25 09:11 Height 5 ft 6 in BP 130/54 L Blood Pressure Location Rt brachial Position Sitting Pulse 70 Pulse Source Pulse Oximeter Pulse Oximetry (%) 99 Oxygen Delivery Method Room Air Intake Visit Reasons: 1mon Retacrit f/u w/labs Cash Control Specialist Required: No Accompanied by: Spouse Allergies No Known Allergies Allergy (Verified 10/21/25 09:11) Medication List - Last Reconciled 10/21/25 by Martín De Luna MD albuterol sulfate 90 mcg/actuation (ProAir HFA) 2 puffs inhalation Q6H PRN albuterol sulfate 90 mcg/actuation (ProAir RespiClick) 1 inh inhalation Q4-6H PRN aspirin 81 mg PO DAILY atorvastatin 80 mg PO DAILY carvedilol 12.5 mg PO BID cholecalciferol (vitamin D3) 50 mcg PO DAILY ferrous sulfate (FeroSul) 325 mg PO DAILY furosemide 80 mg PO DAILY hydralazine 75 mg (1.5 x 50 mg) PO TID insulin glargine (Lantus Solostar U-100 Insulin) 62 units subcut DAILY insulin lispro (Humalog KwikPen (U-100) Insulin) subcut metolazone 2.5 mg PO DAILY PRN nifedipine ER 60 mg PO DAILY pantoprazole 40 mg PO DAILY potassium chloride ER 10 mEq PO DAILY tirzepatide (Mounjaro) 2.5 mg subcut QWEEK HPI Comments Details: 74-year-old pleasant woman with a history of diabetes mellitus for more than 35 years who was at chronic kidney disease. She is history of congestive heart failure and was on Entresto Lasix and furosemide. Back in November of 2023 creatinine was 2.6 with EGFR of 19 mL/minute. She is currently in nifedipine 60mg daily, hydralazine 75mg TID, carvedilol 12.5mg BID and furosemide 40mg PO BID She continues to have back pain. She has chronic shortness of breath (reports since prior to heart surgery last year which she states did not really help her breathing much. States at rest is ok, with exertion continues to have some dyspnea chronically). No nausea, vomiting. She has leg edema. Wears compression stockings. No weight loss. All other systems were reviewed History of congestive heart failure with preserved ejection fraction. 09/10/24 reports shortness of breath for a while now reports a year ago had open heart surgery, reports before then had it but surgery didn't make it better and has continued blood pressure medications- reports has not taken yet this a.m. Reports SBP at home is usually in 130s. 10/15/2024. Milla was hospitalized about a week ago. She had acute kidney injury superimposed on CKD with fungemia. Serum creatinine peaked more than 4. Diuretics were held. Renal function gradually improved. She is currently not on diuretics creatinine is around 3. She has significant edema. No shortness of breath at present. Accompanied by her family member. She had recently undergone laparoscopic cholecystectomy for symptomatic cholelithiasis. During this hospitalization faustina was negative. He has been catheter was inserted 1121. She is currently on Micafungin and Zosyn 12/03/24; BP was low ; She was hospitalized @ [facility]; Nov 2023 : Cr 2.2 ;Nov 2024 Cr 2.2 with eGFR of 22 ml/mt 01/14/25: Recently in ER for a viral infection; Resolved 02/04/25 Leg edema increased;Received IV Lasix 03/04/25 ;Here for follow up;Seen last week by for worsening renal function ;Diuretics were decreased ;She feels better Edema has improved ;Cr is still up 04/01/25 74-year-old female presenting for the ongoing management of chronic kidney disease. She reports an improvement in her kidney function, from 14% to 19%, over recent evaluations. There is ongoing management of her hypertension and diabetes, with noted dietary influences on her blood glucose control. During a recent vacation, she experienced fluctuations in her blood glucose levels due to less consistent insulin use. The patient reports continued management of edema in her lower extremities, utilizing diuretics and support stockings. Recent anemia was addressed with a corrective injection following a hemoglobin report at 9.0, with close monitoring planned. She describes an increased activity level during a vacation, which she believes positively impacted her overall condition. Her breathing remains stable, and she maintains a stable weight. 04/29/25: No new issues. Here for Retacrit. 05/20/25;Still with fatigue;No dyspnea; 06/17/25 : Here for KIARA 07/29/25 ;Overall doing well. No dyspnea. Weight is stable. 08/26/25: c/o right shoulder pain post rehab. No dyspnea ;No nausea or vomiting 09/23/25 The patient is a 74-year-old femalewith CKD and anemia Overall doing well The patient has a history of cataract surgery, which has improved her vision significantly. She is currently using eye drops twice daily as part of her postoperative care. 10/21/25 The patient is a 74 year old individual presenting for follow-up and management of anemia secondary to chronic kidney disease. The patient receives monthly injections for anemia, and the hemoglobin has shown improvement, rising from 9.0 g/dL to a current level of 9.8 g/dL. The patient's kidney function number fluctuates, which has been deemed acceptable. The patient's blood pressure today was 130/54 mmHg. The patient has diabetes and reports that blood sugar levels are sometimes high, with occasional episodes of nocturnal hypoglycemia. The patient has an upcoming appointment with a clinical data specialist. Recent labs show normal sodium and potassium levels. The patient had cataract surgery in the past. The patient reports getting exhausted with exertion, such as walking, but has been feeling better over the past few days. The patient also notes a reduction in feeling cold, which may be related to the improving hemoglobin level. [facility] Medical History Chronic kidney disease Degenerative joint disease (DJD) of hip Cataract Bunion Fatty liver DJD (degenerative joint disease), lumbar DJD (degenerative joint disease), cervical Diabetes mellitus type 2 with neurological manifestations Vitamin D deficiency Urinary incontinence Allergic rhinitis GERD (gastroesophageal reflux disease) Depression Diabetic retinopathy Hypertension Hyperlipidemia Diabetic nephropathy Surgical History History of cholecystectomy (~09/2024) History of open heart surgery (~02/2023) History of adjustable gastric banding Social History Patient Tobacco Use Status: Never used Tobacco Physical Exam Vital Signs: Last Vital Signs Pulse 70 10/21/25 09:11 BP 130/54 L 10/21/25 09:11 Pulse Ox 99 10/21/25 09:11 Oxygen Delivery Method Room Air 10/21/25 09:11 Neck Neck: Yes supple Resp Auscultation: clear to auscultation bilaterally Cardio Palpation: no palpable S3 Heart sounds: no rubs GI Palpation (GI): Soft to palpation Auscultation: normal bowel sounds Neuro Motor exam (neuro): no asterixis Extrem General: Yes edema Office Meds epoetin disha-epbx 20,000 unit/mL injection solution Performing Provider: Martín De Luna MD [facility] Administered by: Martín De Luna MD on 10/21/25 09:21 Dose Route Admin Location Dispensed Lot Number Expiration Date [facility] Handle Lathe Operator 20,000 unit subcut right arm 1 mL [id number] 04/18/27 6532-7910-44 [employer] Total Dispensed Waste 1 mL 0 % Results Reviewed Nephrology Results: Hgb, (12.0-16.0) 9.8 g/dl L 10/19/25 WBC, (4.8-10.8) 6.9 X10*3/uL 10/19/25 Plt Count, (160-400) 270 X10*3/uL 10/19/25 Sodium, (135-145) 140 mmol/L 10/19/25 Potassium, (3.3-5.1) 4.5 mmol/L 10/19/25 Chloride, (96-108) 108 mmol/L 10/19/25 Carbon Dioxide, (22-29) 22 mmol/L 10/19/25 BUN, (9-16) 67 mg/dL H 10/19/25 Creatinine, (0.5-1.4) 3.29 mg/dL H 10/19/25 Calcium, (8.4-10.2) 9.3 mg/dL Δ 10/19/25 Assessment & Plan Assessment & Plan (1) CKD stage 4 due to type 2 diabetes mellitus: Code(s): E11.22 - Type 2 diabetes mellitus with diabetic chronic kidney disease; N18.4 - Chronic kidney disease, stage 4 (severe) Category: Medical (2) Anemia in chronic kidney disease: Code(s): N18.9 - Chronic kidney disease, unspecified; D63.1 - Anemia in chronic kidney disease Category: Medical Qualifiers: Chronic kidney disease stage: stage 4 (GFR 15-29) Qualified Code(s): N18.4 - Chronic kidney disease, stage 4 (severe); D63.1 - Anemia in chronic kidney disease (3) Diabetes mellitus with chronic kidney disease: Code(s): E11.22 - Type 2 diabetes mellitus with diabetic chronic kidney disease Category: Medical Qualifiers: Diabetes mellitus type: type 2 Diabetes mellitus medical terminologist insulin use: with custodial use Chronic kidney disease stage: stage 4 (severe) Qualified Code(s): E11.22 - Type 2 diabetes mellitus with diabetic chronic kidney disease; N18.4 - Chronic kidney disease, stage 4 (severe); Z79.4 - [facility] (current) use of insulin (4) Hypertension: Code(s): I10 - Essential (primary) hypertension Category: Medical Qualifiers: Hypertension type: primary hypertension Qualified Code(s): I10 - Essential (primary) hypertension Plan 74-year-old woman with a history of longstanding diabetes mellitus and coronary disease with stage IV CKD. CKD is most likely due to underlying diabetic kidney disease. Nondiabetic causes seem unlikely based on the clinical picture. REnal fucntion close to baseline No s/s of uremia Volume status is optimal NO change in medications Anemia due to EPO deficiency Adminstered Retacrit 08739 U SQ ; Hgb 9.8 BP acceptable. Orders: Orders Blood Urea Nitrogen 4 Weeks N18.4 - Chronic kidney disease, stage 4 (severe) Creatinine 4 Weeks N18.4 - Chronic kidney disease, stage 4 (severe) AMB Epoetin Injection Practice Supplied Today D63.1 - Anemia in chronic kidney disease, E11.22 - Type 2 diabetes mellitus with diabetic chronic kidney disease, N18.4 - Chronic kidney disease, stage 4 (severe), Z79.4 - [facility] (current) use of insulin Hemoglobin 4 Weeks N18.4 - Chronic kidney disease, stage 4 (severe) Coding Level of Care Code Est Pt Level 4 (14150) Diagnoses CKD stage 4 due to type 2 diabetes mellitus E11.22; N18.4 Anemia in stage 4 chronic kidney disease N18.4; D63.1 Chronic kidney disease stage: stage 4 (GFR 15-29) Type 2 diabetes mellitus with stage 4 chronic kidney disease, with long-term current use of insulin E11.22; N18.4; Z79.4 Diabetes mellitus type: type 2 Diabetes mellitus custodial insulin use: with medical terminologist use Chronic kidney disease stage: stage 4 (severe) Primary hypertension I10 Hypertension type: primary hypertension
[2025-10-21 09:11] VITALS: BP 130/54; PULSE 70; O2SAT 99
--- OUTSIDE RECORDS SUMMARY | 2025-10-21 09:25 | XMS_ITS | Clinical Summary ---
Author Organization [facility] Address [address] [place], [place] [phone] Phone Care Team Providers Care Rehabilitation Director Name Role Phone Diana Romano MD Primary Care Provider [phone] Boubacar Cabrera MD Unavailable [phone] Martín De Luna MD Unavailable [phone] Allergies No known active allergies Medications atorvastatin [...] long-term current use of insulin Overview (04/11/2023): [facility] & Dr. Nielson Assessment [...] to cut back on humalog when eating qc scientist meals and/or when she will be more active after. Continue to work on eating healthy & keeping active, as able. To call or send in BG with problems with glycemic control. Up to date with ophtho. buttermaker continuous churn current use of insulin Assessment & Plan (02/16/2025 1:45 PM EDT): Will maintain her humalog and lantus dosing Assessment & Plan (04/11/2023 8:48 PM EDT): Using Katie 2, some issues w/ supplies. Will forward note to [place]. They should fax us with any paperwork [...] her glucose levels. Up to date with [facility]. Sees podiatry. Labs were done with renal [...] her glucose levels. Up to date with [facility]. Sees podiatry. Labs ordered Assessment & Plan [...] Sees podiatry. Will get recent labs from [facility] Assessment & Plan (10/24/2023 2:34 PM [...] Team Description 08/06/2025 Telephone [facility] [address] [place] [address] Whitley Salas MA Labs 08/05/2025 Telephone [facility] [address] [place] [address] Marli Call MA 08/04/2025 9:00 AM EDT Office Visit [facility] [address] [place] [address] Julienne Vivas, PAPercyC Type 2 diabetes mellitus [...] AM EST Office Visit [facility] [address] [place] [address] Julienne Vivas PA-C [address] [place] [id number] 01/22/2026 10:00 AM EST Office Visit [facility] [address] [place] [address] Winter Zaman MD [address] [place] [address] 05/04/2026 9:00 AM EDT Office Visit [facility] [address] [place] [address] Julienne Vivas PA-C [address] [place] [address] Health Maintenance Due Date Last Done Comments [...] HEMOGLOBIN A1C 8.3(H) 4.3 - 5.8 % [facility] Blood 04/23/2025 11:1 7 AM EDT 04/23/2025 11:21 AM EDT us Winter Zaman MD LAB BLOOD BKR ORDERABL ES Final Result [address] [address] * (ABNORMAL) Basic metabolic panel (04/23/2025 11:17 AM EDT) SODIUM 137 133 - 146 mmol/L [facility] CHLORIDE 102 96 - 108 mmol/L [facility] POTASSIUM 4.3 3.3 - 5.1 mmol/L [facility] CO2 25 21 - 35 mmol/L [facility] BUN 46(H) 6 - 19 mg/dL [facility] CREATININE 2.40(H) 0.5 - 1.5 mg/dL [facility] GLUCOSE 238(H) 70 - 99 mg/dL [facility] CALCIUM 9.1 8.4 - 10.3 mg/dL [facility] EGFR 21(L) >59 mL/min/1.7 3m2 [facility] Comment:Estimated glomerular filtration rate calculated using the CKD-EPI refit equation. ANION GAP 14 10 - 20 mmol/L [facility] Blood 04/23/2025 11:1 7 AM EDT 04/23/2025 11:22 AM EDT Winter Zaman MD LAB BLOOD BKR ORDERABL ES Final Result [facility] [address] [place] [address] from Last 3 Months or Most Recently Relevant to Health Maintenance Insurance [facility] [employer] MEDICARE REPLACEMENT [facility]IC[facility] RE[facility] MEDICARE REPLACEMENT Care Teams Rehabilitation Director Relationship Specialty Start Date End Date Diana Romano MD [address] [place] [address] [address] [place] [phone] PCP - General Internal Medicine 02/22/23 Boubacar Cabrera MD [address] [facility] [address] [place] [address] Cardiology 10/24/23 Martín De Luna MD 300 [facility] [address] [place] [address] Nephrology 04/23/25 Additional Source Comments The information contained in this document represents components of the legal health record. It is not the complete legal health record.[facility]
--- OUTSIDE RECORDS SUMMARY | 2025-10-21 09:25 | XMS_ITS | Clinical Summary ---
Author Organization 175 [facility] Address [address] [place] [address] Phone Care Team Providers Care Licensed Prosthetist Name Role Phone Dionisio Romano MD Primary Care Provider [phone] Allergies No known active allergies Medications aspirin [...] 24 hr tabletIndicatio ns:Coronary artery disease involving kaguyuk coronary artery of kaguy[place] heart without angina pectoris Take 1 tablet [...] disease, with long-term current use of insulin ([facility] V24, [facility] V28) 08/18/2025 Assessment & Plan (08/18/2025 1:00 PM EDT): Orders: Hemoglobin A1c; Future CBC and differential; Future Basic metabolic panel; Future Magnesium; Future Obesity, morbid ([facility] V24, [facility] V28) 08/18 Assessment & Plan (08/18/2025 1:00 PM EDT): Orders: Hemoglobin A1c; Future CBC and differential; Future Basic metabolic panel; Future Magnesium; Future (HFpEF) heart failure with p reserved ejection fraction ([facility] V24, [facility] V28) 12/12/2024 Assessment & Plan (10/01/2025 12:32 [...] echocardiogram in September 2024 while hospitalized at [facility] which was reviewed. Orders: ECG 12 [...] echocardiogram in September 2024 while hospitalized at [facility] which was reviewed. Abdominal pain 12/09/2024 [...] Edema 09/25/2023 Coronary artery disease invo lving kaguyuk coronary artery of kaguy[place] heart without angina pectoris 03/26/2023 Assessment & [...] mellitus type 2 wit h neurological manifestations ([facility] V24, [facility] V28) 02/13/2017 DJD (degenerative joint disease), cervical 02/13 DJD (degenerative joint disease), lumbar 017 Fatty liver 02/13/2017 GERD (gastroesophageal reflux disease) 7 Type 2 diabetes mellitus wit h cataract ([facility] V24, [facility] V28) 02/13/2017 Urinary incontinence 02/13/2017 Venous insufficiency 02/13/2017 Assessment & Plan (10/01/2025 12:32 PM EST): Edema likely secondary to venous insufficiency. Continue with furosemide. Continue with compression stockings. Educated about reducing sodium intake, elevation of extremities while seated, weight loss and exercise. Vitamin D deficiency 02/13/2017 Depression 02/08/2017 Diabetic neuropathy ([facility] V24, [facility] V28) 0 02/08/2017 Diabetic retinopathy ([facility] V24, [facility] V28) 02/08/2017 Hyperlipidemia 02/08/2017 Assessment & Plan [...] Description 10/01/2025 10:40 AM EST Office Visit [facility] [address] [place] [address] Pancho Montes De Oca NP Coronary artery disease involving kaguyuk coronary artery of kaguy[place] heart, unspecified whether angina present (Primary Dx); Chronic heart failure with preserved ejection fraction (HFpEF) ([facility] V24, [facility] V28); Hypertension, unspecified type; Hyperlipidemia, unspecified hyperlipidemia type; Class 1 obesity due to excess calories with serious comorbidity and body mass index (BMI) of 34.0 to 34.9 in adult; Venous insufficiency 08/19/2025 Results Follow-Up Internal Medicine - [place] [address] [place] [address] Dionisio Romano MD 08/18/2025 9:45 AM EDT Office Visit Internal Medicine - [place] [address] [place] [address] Dionisio Romano MD Pre-op examination (Primary Dx); Shortness of breath; Breast cancer screening by mammogram; Type 2 diabetes mellitus with stage 4 chronic kidney disease, with long-term current use of insulin ([facility] V24, [facility] V28); Obesity, morbid ([facility] V24, [facility] V28); End stage heart failure ([facility] V24, [facility] V28); Diarrhea, unspecified type; LFT elevation; Need for vaccination against Streptococcus pneumoniae; Encounter for subsequent annual wellness visit (AWV) in Medicare patient from Last 3 Months Immunizations Immunization Administration Dates Next Due Influenza trivalent, 0.5mL (Fluad) 65yo and olde r 08/18/2020,08/05/2020 Influenza trivalent, 0.5mL, preservative free (Fluarix; FluLaval; Fluzone) ages 6mo and older (Afluria) 3 years and older 09/24/2015 [employer]ra SARS-CoV-2 COVID-19, mRNA, LNP-S, preservative free 09/06/2021,02/18/2021 [...] PROCEDURE: HISTORICAL ROTATOR CUFF REPAIR APPENDECTOMY PROCEDURE: WA APPENDECTOMY CATARACT EXTRACTION PROCEDURE: HISTORICAL CATARACT REMOVAL OTHER SURGICAL HISTORY PROCEDURE: ---- OTHER ----; COMMENT: venous ligation LAPAROSCOPIC GASTRIC BANDING PROCEDURE: LAP ADJUSTABLE GASTRIC BAND CORONARY ARTERY BYPASS GRAFT Medical History Medical History Date Comments Diabetic neuropathy ([facility] V24, [facility] V28) 02/08/2017 DX:Diabetic neuropathy ([facility]) Hyperlipidemia 02/08/2017 DX:Hyperlipidemi a Hypertension 02/08/2017 DX:Hypertension Diabetic retinopathy ([facility] V24, [facility] V28) 02/08/2017 DX:Diabetic retinopathy ([facility] ) Depression 02/08/2017 DX:Depression History of adjustable gastric banding 02/13/2017 DX:History of adjustable gastric banding Diabetes mellitus type 2 wit h neurological manifestations ([facility] V24, [facility] V28) 02/13/2017 DX:Diabetes mellitus type 2 with neurological manifestations (HCC) Type 2 diabetes mellitus wit h eye manifestations ([facility] V24, [facility] V28) 02/13/2017 DX:Type 2 diabetes mellitus with eye manifestations (HCC) Type 2 diabetes mellitus wit h cataract ([facility] V24, [facility] V28) 02/13/2017 DX:Type 2 diabetes mellitus with [...] Insulin dependent type 2 destini betes mellitus ([facility] V24, [facility] V28) DX:Insulin depende nt type 2 diabetes mellitus (HCC) RUQ pain DX:RUQ pain Anemia Diabetes ([facility] V24, [facility] V28) Family History Medical History Relation Name [...] AM EST Appointment [facility] [address] [place] [phone] 12/22/2025 9:00 AM EST Office Visit Internal Medicine - [place] [address] [facility] [address] [place] [phone] Dionisio Romano MD [address] [place] [phone] 03/25/2026 8:20 AM EDT Consult Gastroenterology - [address] [facility] [address] [facility] [address] [place] [phone] Lyla Green, YOLY [address] [facility] [address] [place] [address] Health Maintenance Due Date Last Done Comments [...] 12:32 PM EST Coronary artery disease involving kaguyuk coronary artery of kaguy[place] heart, unspecified whether angina present Chronic heart failure with preserved ejection fraction (HFpEF) ([facility] V24, [facility]/HCC V28) Hypertension, unspecified type Hyperlipidemia, unspecified hyperlipidemia type EXTERNAL DIABETIC RETINA EYE EXAM 09/29/2025 EXTERNAL CLINICAL LAB 09/21/2025 CBC WITH AUTO DIFFERENTIAL Routine 08/18/2025 11:01 AM EDT Shortness of breath Breast cancer screening by mammogram Type 2 diabetes mellitus with stage 4 chronic kidney disease, with long-term current use of insulin ([facility] V24, [facility] V28) Obesity, morbid (CMS/HCC V24, [facility]/HCC V28) End stage heart failure (CMS/HCC V24, [facility]/HCC V28) Diarrhea, unspecified type LFT elevation HEMOGLOBIN A1C Routine 08/18/2025 11:01 AM EDT Shortness of breath Breast cancer screening by mammogram Type 2 diabetes mellitus with stage 4 chronic kidney disease, with long-term current use of insulin ([facility] V24, [facility] V28) Obesity, morbid (CMS/HCC V24, [facility]/HCC V28) End stage heart failure (CMS/HCC V24, CMS/HCC V28) Diarrhea, unspecified type LFT elevation CBC AND DIFFERENTIAL Routine 08/18/2025 11:01 AM EDT Shortness of breath Breast cancer screening by mammogram Type 2 diabetes mellitus with stage 4 chronic kidney disease, with long-term current use of insulin ([facility] V24, [facility]/HCC V28) Obesity, morbid (CMS/HCC V24, CMS/HCC V28) End stage heart failure (CMS/HCC V24, [facility]/HCC V28) Diarrhea, unspecified type LFT elevation BASIC METABOLIC PANEL Routine 08/18/2025 11:01 AM EDT Shortness of breath Breast cancer screening by mammogram Type 2 diabetes mellitus with stage 4 chronic kidney disease, with long-term current use of insulin ([facility] V24, [facility]/H[facility] V28) Obesity, morbid (CMS/HCC V24, [...] 06/21/2023 HEPATITIS C SCREENING Routine 02/27/2023 [facility] DEXA AXIAL SKELETON Routine 12/05/2022 5:38 [...] GEMUSE QTc 462 ms GEMUSE P Wave [place] 62 degrees GEMUSE R [place] -61 degrees GEMUSE T [place] -9 degrees GEMUSE ECG Interpretation Normal sinus rhythm Left anterior fascicular block Abnormal ECG When compared with ECG of 27-DEC-2009 10:56, T wave inversion now evident in Inferior leads Confirmed by MD DONI, DAYO ([id number]) on 10/01/2025 5:11:39 PM GEMUSE 10/01/2025 10:5 3 AM EST 10/01/2025 5:11 PM EST us Pancho Montes De Oca [employer]OCK [employer] SUPERVISOR ECG ORDERABLES Edited Resu lt - Final [...] LAB HEMETOLOGY METHOD 08/18/2025 2:25 PM EDT [facility] RBC 3.30(L) 3.80 - 4.80 M/mcL LAB HEMETOLOGY METHOD 08/18/2025 2:25 PM EDT [facility] Hemoglobin 9.3(L) 11.5 - 16.0 g/dL LAB HEMETOLOGY METHOD 08/18/2025 2:25 PM EDT [facility] Hematocrit 29.4(L) 35.0 - 47.0 % LAB HEMETOLOGY METHOD 08/18/2025 2:25 PM EDT [facility] MCV 88.8 79.0 - 98.0 FL LAB HEMETOLOGY METHOD 08/18/2025 2:25 PM EDT [facility] MCH 28.1 27.0 - 32.0 pcg LAB HEMETOLOGY METHOD 08/18/2025 2:[facility] MCHC 31.6(L) 32.0 - 37.0 g/dL LAB HEMETOLOGY METHOD 08/18/2025 2:25 PM EDT [facility] RDW 17.7(H) 11.0 - 15.0 % LAB HEMETOLOGY METHOD 08/18/2025 2:25 PM EDT [facility] Platelets 224 130 - 400 K/mcL LAB HEMETOLOGY METHOD 08/18/2025 2:25 PM EDT [facility] MPV 11.1(H) 7.0 - 11.0 FL LAB HEMETOLOGY METHOD 08/18/2025 2:25 PM EDT [facility] NRBC 0.0 <1.0 % LAB HEMETOLOGY METHOD 08/18/2025 2:25 PM EDT [facility] NRBC Absolute 0.00 <0.10 K/mcL LAB HEMETOLOGY METHOD 08/18/2025 2:25 PM EDT [facility] Neutrophils Relative 63.6 % LAB HEMETOLOGY METHOD 08/18/2025 2:25 PM EDT [facility] Lymphocytes Relative 24.2 % LAB HEMETOLOGY METHOD 08/18/2025 2:[facility] Monocytes Relative 7.6 % LAB HEMETOLOGY METHOD 08/18/2025 2:25 PM [facility] Eosinophils Relative 3.4 % LAB HEMETOLOGY METHOD 08/18/2025 2:25 PM EDT [facility] Basophils Relative 1.0 % LAB HEMETOLOGY METHOD 08/18/2025 2:25 PM EDT [facility] Immature Granulocytes Relative 0.2 % LAB HEMETOLOGY METHOD 08/18/2025 2:25 PM [facility] Neutrophils Absolute 3.91 1.50 - 7.00 K/mcL LAB HEMETOLOGY METHOD 08/18/2025 2:25 PM EDT [facility] Lymphocytes Absolute 1.49 1.00 - 5.00 K/mcL LAB HEMETOLOGY METHOD 08/18/2025 2:25 PM EDT [facility] Monocytes Absolute 0.47 0.20 - 1.00 K/[facility] LAB HEMETOLOGY METHOD 08/18/2025 2:25 PM EDT [facility] Eosinophils Absolute 0.21 0.00 - 0.50 K/[facility] LAB HEMETOLOGY METHOD 08/18/2025 2:25 PM EDT [facility] Basophils Absolute 0.06 0.00 - 0.20 K/[facility] LAB HEMETOLOGY METHOD 08/18/2025 2:25 PM EDT [facility] Immature Granulocytes Absolute 0.01 0.00 - 0.03 K/[facility] LAB HEMETOLOGY METHOD 08/18/2025 2:25 PM EDT [facility] Blood Venous blood specimen / Unknown Venipuncture / Unknown 08/18/2025 11:01 AM EDT 08/18/2025 11:01 AM EDT us Dionisio Romano MD LAB BLOOD ORDERABLES Final Res ult Performing Organization Address City/[facility]/ZIP Co de Phone Number [facility] [address] [place] [address], [place] [phone] * Magnesium (08/18/2025 11:01 AM EDT) Magnesium 2.1 1.9 - 2.6 mg/dL LAB CHEMISTRY METHOD 08/18/2025 3:44 PM EDT [facility] Blood Venous blood specimen / Unknown Venipuncture / Unknown 08/18/2025 11:01 AM EDT 08/18/2025 11:01 AM EDT us Dionisoi Romano MD LAB BLOOD ORDERABLES Final Res ult [facility] [address] [place] [address], [place] [phone] * (ABNORMAL) Hemoglobin A1c (08/18/2025 11:01 AM EDT) Pathologist [facility] Hemoglobin A1C 8.2(H) <6.5 % LAB CHEMISTRY METHOD 08/18/2025 10:09 PM EDT [facility] Mean Bld Glu Estim. 189 mg/dL LAB CHEMISTRY METHOD 08/18/2025 10:09 PM EDT [facility] Blood Venous blood specimen / Unknown Venipuncture / Unknown 08/18/2025 11:01 AM EDT 08/18/2025 11:01 AM EDT us Dionisio Romano MD LAB BLOOD ORDERABLES Final Res ult [facility] [address] [place] [address], * (ABNORMAL) Basic metabolic panel (08/18/2025 11:01 AM EDT) [facility] Sodium 141 133 - 145 mmol/L LAB CHEMISTRY METHOD 08/18/2025 3:45 PM [facility] Potassium 3.4(L) 3.5 - 5.5 mmol/L LAB CHEMISTRY METHOD 08/18/2025 3:45 PM [facility] Chloride 110 96 - 110 mmol/L LAB CHEMISTRY METHOD 08/18/2025 3:45 PM T [facility] CO2 22 21 - 32 mmol/L LAB CHEMISTRY METHOD 08/18/2025 3:45 PM [facility] Anion Gap 9 3 - 11 LAB CHEMISTRY METHOD 08/18/2025 3:45 PM [facility] Glucose 230(H) 70 - 100 mg/dL LAB CHEMISTRY METHOD 08/18/2025 3:45 PM [facility] BUN 42(H) 5 - 25 mg/dL LAB CHEMISTRY METHOD 08/18/2025 3:45 PM EDT [facility] Creatinine 3.06(H) 0.50 - 1.10 mg/dL LAB CHEMISTRY METHOD 08/18/2025 3:45 PM EDT [facility] eGFR 16(L) >=60 mL/min/1. 73m2 LAB CHEMISTRY METHOD 08/18/2025 3:45 PM EDT [facility] Comment:Calculation based on the Chronic Kidney Disease Epidemiology Collaboration (CKD-EPI) equation refit without adjustment for race. BUN/Creatinine Ratio 13.7 LAB CHEMISTRY METHOD 08/18/2025 3:45 PM EDT [facility] Calcium 8.9 8.5 - 10.5 mg/dL LAB CHEMISTRY METHOD 08/18/2025 3:45 PM EDT [facility] Blood Venous blood specimen / Unknown Venipuncture / Unknown 08/18/2025 11:01 AM EDT 08/18/2025 11:01 AM EDT us Dionisio Romano MD LAB BLOOD ORDERABLES Final Res ult [facility] [address] [place] [address], * MG Mammo Digital Diagnostic w Isaac bilat (11/13/2024 8:23 AM EST) Anatomical Region Laterality Modality Breast Bilateral Mammography 11/13/2024 8:11 AM EST Impressions 11/13/2024 8:21 AM EST Benign. BI-RADS CATEGORY: 2 - BENIGN RECOMMENDATION: Screening bilateral mammogram is recommended in 1 year. Mammo Location: [facility], [facility], [address] [place] [id number] -------- FINAL REPORT -------- Dictated By: Daniel Gregory Dictated Date: 11/13/2024 08:11 ET Assigned Physician: Daniel Gregory Reviewed and Electronically Signed By: Daniel Gregory Signed Date: 11/13/2024 08:21 ET Workstation ID: [id number] Transcribed By: Self Edit Transcribed Date: 11/13/2024 [...] and CC projection is performed in the [employer] 2000-D unit. Computer aided detection utilizing the [...] MLO and CC projection is performed in theBoundaryographGraspr 2000-D unit. Computer aided detection utilizing the [...] Location: [facility], [facility], [address] [place] [id number] -------- FINAL REPORT -------- Dictated By: Daniel Gregory Dictated Date: 11/13/2024 08:11 ET Assigned Physician: Daniel Gregory Reviewed and Electronically Signed By: Daniel Gregory Signed Date: 11/13/2024 08:21 ET Workstation ID: [id number] Transcribed By: Self Edit Transcribed Date: 11/13/2024 08:11 ET Dionisio Romano MD IMG BI PROCEDURES Final Result * Colonoscopy (04/16/2024) [facility] Colonoscopy no interpretation , abstracted Anatomical Region Laterality Modality Other Historical Provider HEALTH MAINTENANCE Final Result * Diabetes Foot Exam (10/09/2023) [facility] Diabetes: Annual Foot Exam abstracted Historical Provider HEALTH MAINTENANCE Final Result * Urine Albumin Creatinine Ratio (06/21/2023) [facility] Urine Albumin Creatinine Ratio abstracted Historical Provider HEALTH MAINTENANCE Final Result * Hepatitis C Screening (02/27/2023) [facility] Hepatitis C Screening abstracted Historical Provider HEALTH MAINTENANCE Final Result * [facility] DEXA AXIAL SKELETON (12/05/2022 5:38 PM EST) Anatomical Region Laterality Modality Mammography 12/05/2022 11:1 5 AM EST Narrative 12/05/2022 5:38 PM EST [facility] Diagnostic Imaging Department [address] [place] [address] [id number] Patient: TALIA GUZMAN./Age/Sex: 1950 - 71 - F Unit#: [id number] Location/Status: SPDIMAM/REG CLI Mnemonic/Ordering Site: MAMDEXAAX/SPMAM Ordering Physician: DIONISIO ROMANO MD [facility] Dexa Axial Skeleton - 12/05/22 - History: Low estrogen state due to menopause. On omeprazole. Comparison: 08/10/14 Findings: Bone densitometry is performed utilizing dual energy x-ray absorptiometry (DXA) in the [employer] Containment unit. The lumbar spine and proximal femora [...] 0.1 percent. IMPRESSION: Normal bone mineral density. [id number] Dictating Physician: LATRICE SIMS MD Electronically Signed by: LATRICE SIMS MD Dic Date/Time: 12/05/221736 Sign date/Time: 12/05/221737 Procedure Note Latrice Sims MD - 12/21/2023 [facility] Diagnostic Imaging Department [address] [place], [place] [id number] Patient: TALIA GUZMAN./Age/Sex: 1950 - 71 - F Unit#: [id number] Location/Status: SPDIMAM/REG CLI Mnemonic[facility] Ordering Physician: DIONISIO ROMANO MD [facility] Dexa Axial Skeleton - 12/05/22 - History: Low estrogen state due to menopause. On omeprazole. Comparison: 08/10/14 Findings: Bone densitometry is performed utilizing dual energy x-ray absorptiometry(DXA) in the [employer] Containment unit. The lumbar spine and proximal femora [...] 0.1 percent. IMPRESSION: Normal bone mineral density. [id number] Dictating Physician: LATRICE SIMS MD Electronically Signed [...] ID:[id number] Group ID:[id number] Type:Not on file Address: [place] [address] [address] [id number] Care Teams Licensed Prosthetist Relationship Specialty Start Date End Date Dionisio Romano MD [address] [phone] PCP - General Internal Medicine 02/25/13
== END 2025-10-21 09:25 | disposition home or self-care (01) ==
LOC: HO.HKAS 08:57
PROVIDERS: PCP Internal Medicine; Visit Provider Internal Medicine Hypertension Specialist
DX: E11.22 Type 2 diabetes mellitus with diabetic chronic kidney disease (principal); N18.4 Chronic kidney disease, stage 4 (severe); D63.1 Anemia in chronic kidney disease; Z79.4 Long term (current) use of insulin; I12.9 Hypertensive chronic kidney disease with stage 1 through stage 4 chronic kidney disease, or unspecified chronic kidney disease
CPT/HCPCS: 99214

== ENCOUNTER → 2025-10-21 08:56 | Outpatient (BNVA) | payer OTHER, SELFPAY | PROVIDERS: PCP Internal Medicine; Visit Provider Internal Medicine Hypertension Specialist | DX: I12.9 Hypertensive chronic kidney disease with stage 1 through stage 4 chronic kidney disease, or unspecified chronic kidney disease (principal); E11.22 Type 2 diabetes mellitus with diabetic chronic kidney disease; N18.4 Chronic kidney disease, stage 4 (severe); D63.1 Anemia in chronic kidney disease; Z79.4 Long term (current) use of insulin | CPT/HCPCS: 96372; 99212; Q5106 ==